=== PATIENT | female | born 1945 | race Caucasian/White ===

== ENCOUNTER → 2017-07-03 09:49 | Outpatient (CLI) | payer MEDICARE, SELFPAY ==
[2017-07-03 12:18] LABS: Absolute Lymphocyte Count 1.59 X10^3/ul (0.83-4.51); Absolute Neutrophil Count 4.8 X10^3/uL (2.0-7.7); Basophil# 0.02 X10^3/uL; Basophil% 0.3 % (0-1); Eosinophil# 0.13 X10^3/uL; Eosinophils% 1.8 % (0-5); Hematocrit 44.2 % (37-47); Hemoglobin 14.6 g/dl (12.0-15.0); Lymphocyte # 1.59 X10^3/ul (4.0); Lymphocyte % 22.2 % (19-41); Mean Corpuscular Hgb 29.3 pg (27.0-32.0); Mean Corpuscular Volume 88.8 fL (81-99); Mean Platelet Vol. 9.9 fl (6.2-12.0); Monocyte# 0.56 X10^3/uL; Monocyte% 7.8 % (0-10); Neutrophil # 4.82 X10^3/uL (2.7-7.7); Neutrophil % 67.5 % (47-70); Platelet Count 192 K/mm3 (150-450); RBC Distribution Width CV 13.3 % (11.6-14.6); RBC Distribution Width SD 42.9 fl (35.1-43.9); Red Blood Count 4.98 M/mm3 (4.2-5.4); White Blood Count 7.2 K/mm3 (4.4-11.0)
[2017-07-03 12:20] LABS: POSITIVE COUNT NO; POSITIVE DIFFERENTIAL NO; POSITIVE MORPHOLOGY NO
[2017-07-03 12:31] LABS: Hemoglobin A1c 6.3 % (4.2-6.3)
[2017-07-03 12:36] LABS: Anion Gap 5 (5-15); BUN 21 mg/dL (7-18); BUN/Creat Ratio 21.1 RATIO (10-20); Calcium,Total 9.6 mg/dL (8.5-10.1); Chloride 105 mmol/L (98-107); EST Glomerular Filtration Rate 59 mL/min (>60); Est Glom Filt Rate - Afr Amer 71 mL/min (>60); Glucose 127 mg/dL (74-106); Magnesium 2.5 mg/dL (1.6-2.6); Potassium 5.1 mmol/L (3.5-5.1); Sodium Level 138 mmol/L (136-145); T4 Free Direct 0.88 ng/dL (0.76-1.46); Thyroid Stim Hormone (TSH) 2.01 uIU/mL (0.358-3.74)
== END ==
PROVIDERS: Family Provider Family Medicine; PCP Family Medicine; Visit Provider Family Medicine
DX: I48.91 Unspecified atrial fibrillation (principal); R73.01 Impaired fasting glucose; R59.1 Generalized enlarged lymph nodes
CPT/HCPCS: 36415; 80048; 83036; 83735; 84439; 84443; 85025

== ENCOUNTER 2017-12-24 04:37 | Emergency (ER) | payer MEDICARE, SELFPAY ==
[2017-12-24] VITALS (11 sets, daily range): BP systolic 93–152; BP diastolic 57–92; PULSE 64–104; RESP 14–25; TEMP 36.6; O2SAT 94–98; BMI 37.8
--- NOTE | 2017-12-24 04:42 | RAD_ITS ---
STUDY: X-RAY CHEST REASON FOR EXAM: Female, 72 years old. Atrial fibrillation. TECHNIQUE: Single AP portable view of the chest. COMPARISON: 06/30/2014. FINDINGS: The lungs are clear and expanded. There is no demonstrated pleural abnormality. There is mild cardiac enlargement. Normal mediastinum and lucita. Normal visualized pulmonary arteries. There is atherosclerotic calcification of the aortic arch with tortuosity. There are diffuse degenerative changes of the visualized thoracic spine. Normal visualized ribs, clavicles, and shoulders. There is no demonstrated abnormality of the visualized soft tissue structures of the upper abdomen. RAD/Chest 1 View (Portable) IMPRESSION: Cardiomegaly. No evidence for acute cardiopulmonary pathology. Electronically Signed: Singh Lindsey MD at 5:27 EST , Service support ,
[2017-12-24] MEDS: Aspirin 81 MG TAB.CHEW 324 MG PO (04:51)
[2017-12-24] MEDS: dilTIAZem 25 MG/5 ML Vial 10 MG IV BOLUS (04:53)
[2017-12-24 05:02] LABS: Hematocrit 45.6 % (37-47); Hemoglobin 15.5 g/dl (12.0-15.0); Mean Corpuscular Hgb 30.2 pg (27.0-32.0); Mean Corpuscular Volume 88.9 fL (81-99); Red Blood Count 5.13 M/mm3 (4.2-5.4); White Blood Count 11.6 K/mm3 (4.4-11.0)
[2017-12-24 05:03] LABS: Absolute Neutrophil Count 7.7 X10^3/uL (2.0-7.7); Basophil# 0.02 X10^3/uL; Basophil% 0.2 % (0-1); Eosinophils% 0.9 % (0-5); Lymphocyte % 24.1 % (19-41); Mean Platelet Vol. 9.5 fl (6.2-12.0); Monocyte# 0.86 X10^3/uL; Monocyte% 7.4 % (0-10); Neutrophil # 7.72 X10^3/uL (2.7-7.7); Neutrophil % 66.5 % (47-70); POSITIVE COUNT NO; POSITIVE DIFFERENTIAL NO; POSITIVE MORPHOLOGY NO; Platelet Count 195 K/mm3 (150-450)
--- NOTE | 2017-12-24 05:15 | ED.DCSUM_ITS ---
- ER Visit Summary Date of Service: 12/24/17 Chief Complaint: Palpitations History of Present Illness: The patient is a 72 F presenting with palpitations and feeling that she is in A. fib. She has history of paroxysmal A. fib. She states she has not been in A. fib for the past couple of years. On Sunday she was intermittently going into A. fib. She states it has been constant since Sunday night. She denies chest pain or shortness of breath. Denies other complaints. Physical Examination: Vitals are stable. Patient is afebrile. Alert no acute distress. HEENT exam is unremarkable. Neck is supple. Lungs are clear and equal bilaterally. Heart is irregularly irregular Abdomen is soft nontender nondistended. Extremities are unremarkable. Skin is warm and dry. No focal neurologic deficit. Remainder of exam is unremarkable. Emergency Department Course and Treatment: Patient was given aspirin, Cardizem IV. Her heart rate went to the 80s and her blood pressure went to 100 systolic. She remains in A. fib. CBC, chemistries unremarkable other than white count 11.6, glucose 146, BUN 21, creatinine 1.16. Troponin is negative. Chest x-ray shows cardiomegaly, no acute process. Discussed with Dr. Thapa. Patient will be sedated and cardioverted. She will follow-up in the office. Patient was consented for procedural sedation. She was given propofol. Synchronized cardioversion with 200 J x2 was performed. She converted to sinus rhythm. Repeat EKG is sinus rhythm rate of 66. She was observed in the ED. She will follow-up with Dr. Thapa in his office. Advised to return to ED for worsening complaints. Disposition: Discharge home Impression: Paroxysmal atrial fibrillation, procedural sedation, synchronized cardioversion This note was generated with [employer] dictation software. It may contain incorrect words, spelling, and punctuation that were not noted in review of the chart prior to signing ED Disposition - Plan for ED Patient: Chief Complaint: Palpitations Instructions: ED Afib Referrals: Reynaldo Thapa MD [STAFF PHYSICIAN] - Rui Rea MD [Primary Care Provider] -
[2017-12-24 05:17] LABS: Anion Gap 8 (5-15); BUN 21 mg/dL (7-18); BUN/Creat Ratio 18.1 RATIO (10-20); Chloride 106 mmol/L (98-107); Creatinine, Serum 1.16 mg/dL (0.55-1.02); EST Glomerular Filtration Rate 49 mL/min (>60); Est Glom Filt Rate - Afr Amer 59 mL/min (>60); Estimated Creatinine Clearance 37.33 ml/min; Glucose 146 mg/dL (74-106); Potassium 4.3 mmol/L (3.5-5.1); Sodium Level 139 mmol/L (136-145)
--- NOTE | 2017-12-24 06:27 | ED.DEP ---
ED Disposition - Plan for ED Patient: Chief Complaint: Palpitations Instructions: ED Afib Referrals: Rui Rea MD [Primary Care Provider] - Reynaldo Thapa MD [STAFF PHYSICIAN] -
[2017-12-24] MEDS: Propofol 200 MG/20 ML Vial IV BOLUS (06:30)
== END 2017-12-24 07:53 | disposition home or self-care (01) ==
LOC: ED 04:53
PROVIDERS: Emergency Provider Emergency Medicine; Family Provider Family Medicine; PCP Family Medicine
DX: I48.0 Paroxysmal atrial fibrillation (principal); I10 Essential (primary) hypertension; F41.9 Anxiety disorder, unspecified; Z79.01 Long term (current) use of anticoagulants; Z79.899 Other long term (current) drug therapy
CPT/HCPCS: 71045; 80048; 84484; 85025; 92960; 93005; 96374; 99152; 99285; J7030; A4216

== ENCOUNTER 2018-01-15 11:14 | Day surgery (SDC) | payer MEDICARE, SELFPAY ==
--- NOTE | 2018-01-15 12:07 | OP.PCM_ITS ---
Operative Report Date of Procedure: 01/15/18 DC cardioversion. 72-year-old lady with a history of chronic persistent atrial fibrillation anticoagulated for at least 3 weeks. The patient was brought to the noninvasive lab in the postabsorptive state. Informed consent was obtained anterior- posterior pads were applied. The patient was seen by Dr. Vinson of the critical care division. She was administered 40 mg of intravenous propofol. 200 J of synchronized DC cardioversion energy were applied with prompt reversal to sinus rhythm. Patient tolerated the procedure well. Conclusion: Successful DC cardioversion from atrial fibrillation to sinus rhythm. Continue current medical therapy
--- NOTE | 2018-01-15 14:08 | OP.PCM_ITS ---
Problem List (1) Family history of cardiovascular disease Status: Chronic Comment: brother of an MS and mother at 69 YOA with CVD (2) Family history of diabetes mellitus Status: Chronic Comment: son hs DM (3) HLD (hyperlipidemia) Status: Chronic (4) HTN (hypertension) Status: Chronic Qualifiers: Hypertension type: essential hypertension Qualified Code(s): I10 - Essential (primary) hypertension (5) History of detached retina repair Status: Chronic (6) IRON (obstructive sleep apnea) Status: Chronic Comment: not compliant with CPAP. (7) Paroxysmal atrial fibrillation Status: Chronic Operative Report Date of Procedure: 01/15/18 - Conscious sedation CONSCIOUS SEDATION REPORT BRIEF HISTORY OF PRESENT ILLNESS: The patient is a 72-year-old female who presented to [facility] for an elective outpatient cardioversion due to underlying atrial fibrillation. The patient reports no PO intake since midnight. The patient does have a history of obstructive sleep apnea. The patient reports no history of smoking and COPD. The patient denies any recent constitutional symptoms such as fevers, chills, nausea or vomiting. The patient denies previous anesthetic complications. Patient's last known ejection fraction of 55% PHYSICAL EXAMINATION: VITAL SIGNS: Reviewed and were acceptable. GENERAL: The patient is a female, in no apparent distress, speaking in full sentences. HEENT: Normocephalic, atraumatic. Mucous membranes are moist and pink. Good mouth opening noted. Trachea is midline. Good neck mobility. MP III CHEST: S1, S2 irregularly irregular. No murmurs, rubs or gallops were noted. LUNGS: Clear to auscultation bilaterally without appreciable wheezes, rales or rhonchi. ABDOMEN: Soft, nontender, nondistended. Positive bowel sounds. EXTREMITIES: There is no clubbing, cyanosis or edema. ASA Class: II DESCRIPTION OF PROCEDURE: After confirmation of informed consent, the patient's anesthesia plan was reviewed in detail. Propofol was chosen. Risks and benefits were reviewed and the patient agreed to proceed. At 11:59 AM, the patient was given 40 mg of propofol. The patient achieved an appropriate level of sedation and received 1 attempt s synchronized cardioversion, at [address] Thapa at the bedside. This was successful in achieving normal sinus rhythm. The patient was monitored until 12:05 PM, at which time the patient reached their baseline mental status and function. The patient tolerated the procedure well. COMPLICATIONS: None ESTIMATED BLOOD LOSS: None RECOMMENDATIONS: Okay to recover in usual fashion. Code Visit 9xxxx: Other Procedure See Report - [id number]
--- OUTSIDE RECORDS SUMMARY | 2018-02-27 02:59 | XMS RPT_ITS ---
:1945 Author Organization OHIP Support Name Relationship Address Phone MONAE, OMARI Unavailable [address] + [place] [address] R Unavailable Unavailable Unavailable MONAE, OMARI Unavailable [address] + [place] [address] R Unavailable Unavailable Unavailable MONAE, OMARI Unavailable [address] + [place] [address] R Unavailable Unavailable Unavailable MONAE, OMARI Unavailable [address] + [place] [address] R Unavailable Unavailable Unavailable MONAE, OMARI Unavailable [address] + [place] [address] R Unavailable Unavailable Unavailable MONAE, OMARI Unavailable [address] + [place] [address] R Unavailable Unavailable Unavailable MONAE, OMARI Unavailable [address] + [place] [address] R Unavailable Unavailable Unavailable MONAE, OMARI Unavailable [address] + [place] [address] R Unavailable Unavailable Unavailable MONAE, OMARI Unavailable [address] + [place] [address] R Unavailable Unavailable Unavailable MONAE, OMARI Unavailable [address] + [place] [address] R Unavailable Unavailable Unavailable MONAE, OMARI Unavailable [address] + [place] [address] R Unavailable Unavailable Unavailable MONAE, OMARI Unavailable [address] + [place] [address] R Unavailable Unavailable Unavailable Care Team Providers Name Role Phone Rona, Rui Attending Unavailable Rona, Rui Primary Care Unavailable Isela Cabrera Attending Unavailable Elier, Fremont Attending Unavailable Rona, Rui Referring Unavailable Rona, Rui Primary Care Unavailable Rona, Rui Primary Care Unavailable Southern, Rose Attending Unavailable Elier, Reynaldo Attending Unavailable Rona, Rui Referring Unavailable Elier, Reynaldo Attending Unavailable Elier, Fremont Referring Unavailable Rona, Rui Primary Care Unavailable Elier, Reynaldo Attending Unavailable Elier, Reynaldo Referring Unavailable Rona, Rui Primary Care Unavailable Elier, Fremont Consulting Unavailable Rafael Vinson Attending Unavailable Elier, Reynaldo Referring Unavailable Rona, Rui Primary Care Unavailable Elier, Fremont Consulting Unavailable Elier, Reynaldo Attending Unavailable Southern, Rose Referring Unavailable Elier, Fremont Attending Unavailable Elier, Reynaldo Referring Unavailable Rona, Rui Primary Care Unavailable Nurse, Standard Attending Unavailable Rona, Rui Referring Unavailable Elier, Reynaldo Attending Unavailable Elier, Reynaldo Referring Unavailable Rona, Rui Primary Care Unavailable Elier, Reynaldo Consulting Unavailable PROBLEMS PROBLEMS DATE TYPE CONDITION / CODE ATTENDING STATUS SOURCE 01/23/2018 Unknown I48.0 - Paroxysmal Elier, Fremont Active [facility] atrial fibrillation / Community I48.0(ICD-10) Hospital Repository 01/16/2018 Unknown I10 - Essential Elier, Reynaldo Active [facility] (primary) hypertension Community / I10(ICD-10) Hospital Repository 01/16/2018 Unknown R94.31 - Abnormal Elier, Fremont Active [facility] electrocardiogram Community [ECG] [EKG] / Hospital R94.31(ICD-10) Repository 07/10/2017 Unknown E78.5 - Elier, Reynaldo Active [facility] Hyperlipidemia, Community unspecified / Hospital E78.5(ICD-10) Repository 07/03/2017 Unknown I48.91 - Unspecified Rona, Rui Active [facility] atrial fibrillation / Community I48.91(ICD-10) Hospital Repository 07/03/2017 Unknown R73.01 - Impaired Rona, Rui Active [facility] fasting glucose / Community R73.01(ICD-10) Hospital Repository 07/03/2017 Unknown R59.1 - Generalized Rona, Rui Active [facility] enlarged lymph nodes / Community R59.1(ICD-10) Hospital Repository PROCEDURES PROCEDURES No Procedure Records FoundRESULTS RESULTS ECHOCARDIOGRAM COMPLETE Observed: 01/23/2018 Status: F Source: PENDER 5:23 PM [facility] REPOSITORY [facility] Services [address] [place] [address] Echo Complete 01/23/18 1043 MR#: [id number] Acct: [id number] Name: SHIRLEY SHULTZ Rep #: [id number] : 1945 72 From: Reynaldo Thapa MD Attending Dr: Reynaldo Thapa MD Status: REG CLI Ordering Dr: Reynaldo Thapa MD Date: 01/23/18 Location: [facility] Sex: F C Admitted: Reason For Study: AFIB/FLUTTER Procedure This was a 2D Doppler, Color Flow transthoracic echocardiogram. Exam performed in department. Left Ventricle Normal LV size. Left ventricular systolic function is normal. The estimated ejection fraction is 60 %. No evidence for diastolic dysfunction. No regional wall motion abnormalities noted. Right Ventricle Normal RV size. Normal systolic function. Atria Normal left atrium. Normal right atrium. Mitral Valve Normal mitral valve. Mild (1+) eccentric mitral valve insufficiency. Tricuspid Valve Normal tricuspid valve. Mild (1+) tricuspid valve insufficiency. Pulmonary artery systolic pressure is 27 mmHg. Aortic Valve Normal aortic valve. Trisinus/trileaflet aortic valve. Pulmonic Valve Normal pulmonic valve. Great Vessels Normal aortic root. The pulmonary artery is normal size. Normal inferior vena cava. Pericardium/Pleural No pericardial effusion. MMode/2D Measurements AND Calculations LVIDd: 5.1 cm IVSd: 0.92 cm Ao root diam: 2.8 cm LVIDs: 3.4 cm LVPWd: 0.94 cm RVDd: 3.1 cm FS: 34.0 % LAV(MOD-bp): 60.9 ml LA A4 area: 19.6 cm2 LA dimension(2D): 4.0 cm LAV(MOD-bp) Indexed: 30.7 ml/m2 LAV(MOD-sp2): 68.5 ml LAV(MOD-sp4): 52.8 ml RA A4 area: 20.7 cm2 Time Measurements MV dec time: 0.17 sec Doppler Measurements AND Calculations MV E max octaviano: 124.6 cm/sec Lat Peak E' Octaviano: 7.8 cm/sec Med Peak E' Octaviano: 9.7 cm/sec MV A max octaviano: 69.3 cm/sec E/E' lat: 15.9 E/E' med: 12.8 MV E/A: 1.8 Ao V2 max: 152.4 cm/sec LV V1 max: 124.6 cm/sec PA V2 max: 90.1 cm/sec Ao max P.3 mmHg LV V1 max P.2 mmHg TR max octaviano: 237.0 cm/sec TR max P.5 mmHg Interpretation Summary Normal LV size. Left ventricular systolic function is normal. The estimated ejection fraction is 60 %. No evidence for diastolic dysfunction. Mild (1+) eccentric mitral valve insufficiency. Pulmonary artery systolic pressure is 27 mmHg. Ordering Physician: Reynaldo Thapa Referring Physician: Rui Rea Performed By: Alesia Carmichael, FIDEL, RVT 01/23/18 1722 Date Reynaldo Thapa MD CC: Reynaldo Thapa MD; Rui Rea MD Date Dictated: 01/23/18 1043 Date Transcribed: 01/23/181721 Team Coordinator: Signed 12 LEAD EKG PERFORMED Observed: 01/23/2018 Status: F Source: PENDER BY [facility] 11:41 AM [facility] REPOSITORY [facility] [address] [place] [address] 12 Lead EKG performed by [facility] 01/23/18 1140 MR#: [id number] Acct: [id number] Name: SHIRLEY SHULTZ Rep #: [id number] : 1945 72 From: Reynaldo Thapa MD Attending Dr: Kapil Dumont RN Status: DEP AMB Ordering Dr: Reynaldo Thapa MD Date: 01/23/18 Location: [facility] Sex: F C Admitted: [facility]/12 Lead EKG performed by [facility] ECG Report Interpretation Sinus Bradycardia -First degree A-V block Mima = 254-Left axis -anterior fascicular block. -Poor R-wave progression -may be secondary to pulmonary disease consider old anterior infarct. - Negative precordial T-waves. Low voltage with rightward P-axis and rotation -possible pulmonary disease. ABNORMAL Electronically signed on 01/23/2018 at 16:37 by Reynaldo Thapa [employer] Version 8610 01/23/18 1641 Date Reynaldo Thapa MD CC: Rui Rea MD Date Dictated: 01/23/18 1140 Date Transcribed: 01/23/18 1140 Team Coordinator: CO Signed OPERATIVE REPORT Observed: 01/16/2018 Status: F Source: PENDER 5:47 AM [facility] REPOSITORY [facility] Medical Records Department [address] [place] [address] Operative Report 01/15/18 1406 MR#: [id number] Acct: [id number] Name: SHIRLEY SHULTZ Rep #: [id number] : 1945 72 From: Rafael Vinson MD PCP: Rui Rea MD Status: [facility] Location: [facility] Problem List (1) Family history of cardiovascular disease Status: Chronic Comment: brother of an RI and mother at 69 YOA with CVD (2) Family history of diabetes mellitus Status: Chronic Comment: son hs DM (3) HLD (hyperlipidemia) Status: Chronic (4) HTN (hypertension) Status: Chronic Qualifiers: Hypertension type: essential hypertension Qualified Code(s): I10 - Essential (primary) hypertension (5) History of detached retina repair Status: Chronic (6) IRON (obstructive sleep apnea) Status: Chronic Comment: not compliant with CPAP. (7) Paroxysmal atrial fibrillation Status: Chronic Operative Report Date of Procedure: 01/15/18 - Conscious sedation CONSCIOUS SEDATION REPORT BRIEF HISTORY OF PRESENT ILLNESS: The patient is a 72-year-old female who presented to [facility] for an elective outpatient cardioversion due to underlying atrial fibrillation. The patient reports no PO intake since midnight. The patient does have a history of obstructive sleep apnea. The patient reports no history of smoking and COPD. The patient denies any recent constitutional symptoms such as fevers, chills, nausea or vomiting. The patient denies previous anesthetic complications. Patient's last known ejection fraction of 55% PHYSICAL EXAMINATION: VITAL SIGNS: Reviewed and were acceptable. GENERAL: The patient is a female, in no apparent distress, speaking in full sentences. HEENT: Normocephalic, atraumatic. Mucous membranes are moist and pink. Good mouth opening noted. Trachea is midline. Good neck mobility. MP III CHEST: S1, S2 irregularly irregular. No murmurs, rubs or gallops were noted. LUNGS: Clear to auscultation bilaterally without appreciable wheezes, rales or rhonchi. ABDOMEN: Soft, nontender, nondistended. Positive bowel sounds. EXTREMITIES: There is no clubbing, cyanosis or edema. ASA Class: II DESCRIPTION OF PROCEDURE: After confirmation of informed consent, the patient's anesthesia plan was reviewed in detail. Propofol was chosen. Risks and benefits were reviewed and the patient agreed to proceed. At 11:59 AM, the patient was given 40 mg of propofol. The patient achieved an appropriate level of sedation and received 1 attempt s synchronized cardioversion, at [address] Thapa at the bedside. This was successful in achieving normal sinus rhythm. The patient was monitored until 12:05 PM, at which time the patient reached their baseline mental status and function. The patient tolerated the procedure well. COMPLICATIONS: None ESTIMATED BLOOD LOSS: None RECOMMENDATIONS: Okay to recover in usual fashion. Code Visit 9xxxx: Other Procedure See Report - [id number] 01/16/18 0547 <Electronically signed by Rafael Vinson MD> Date Rafael Vinson MD CC: Rafael Vinson MD; Reynaldo Thapa MD; Rui Rea MD Signed OPERATIVE REPORT Observed: 01/15/2018 Status: F Source: PENDER 12:07 PM [facility] REPOSITORY [facility] Medical Records Department [address] [place] [address] Operative Report 01/15/18 1206 MR#: [id number] Acct: [id number] Name: SHIRLYE SHULTZ Rep #: [id number] : 1945 72 From: Reynaldo Thapa MD PCP: Rui Rea MD Status: REG [facility] Location: [facility] Operative Report Date of Procedure: 01/15/18 DC cardioversion. 72-year-old lady with a history of chronic persistent atrial fibrillation anticoagulated for at least 3 weeks. The patient was brought to the noninvasive lab in the postabsorptive state. Informed consent was obtained anterior-posterior pads were applied. The patient was seen by Dr. Vinson of the critical care division. She was administered 40 mg of intravenous propofol. 200 J of synchronized DC cardioversion energy were applied with prompt reversal to sinus rhythm. Patient tolerated the procedure well. Conclusion: Successful DC cardioversion from atrial fibrillation to sinus rhythm. Continue current medical therapy 01/15/18 1207 <Electronically signed by Reynaldo Thapa MD> Date Reynaldo Thapa MD CC: Reynaldo Thapa MD; Rui Rea MD Signed CARDIOLOGY VISIT Observed: 01/08/2018 Status: F Source: PENDER REPORT 11:29 AM [facility] Heart [address] [place] [address] OFFICE VISIT Date of Service: 01/08/18 MR#: [id number] Acct: [id number] Name: SHIRLEY SHULTZ Rep #: [id number] : 1945 Provider: Reynaldo Thapa MD Age/Sex: 72/F Location: [facility] Status: Signed [facility] Chief Complaint: Follow-up visit. Details: SHIRLEY SHULTZ, is a 72 F who presents to the office today for a follow-up visit. She is a lady with a history of hypertension, hyperlipidemia, paroxysmal atrial fibrillation. She has been compliant with her medications. She however says that she started feeling fatigued and felt clammy. She had presented to the emergency room on 12/24/2017 with palpitations she was noted to be in atrial fibrillation and underwent DC cardioversion. She presents to the office today still feeling rather fatigued and her EKG demonstrates that she is in atrial fibrillation with a rate of 102 bpm. She says that she does not know any precipitating factors to the above. She had previously been on 50 mg twice a day of the flecainide. Her physical exam today demonstrates clear lung short irregular regular heart rate normal blood pressure and no pedal edema. Intake Vital Signs01/08/18 Weight: 213 lb 01/08/18 Blood Pressure 112/64 01/08/18 Blood Pressure Location Rt brachial Intake Visit Reasons: ER 11-5 Regional Business Development Manager Required: No Accompanied by: none Is patient in pain?: No Allergies codeine Allergy (Verified 01/08/18 11:01) Other loratadine Allergy (Verified 01/08/18 11:01) Other meloxicam Allergy (Verified 01/08/18 11:01) Other methylprednisolone Allergy (Verified 01/08/18 11:01) Other dronedarone [From Multaq] Adverse Reaction (Verified 01/08/18 11:01) GI upset Penicillins Adverse Reaction (Verified 01/08/18 11:01) nausea and vomiting sulfamethoxazole [From Bactrim] Adverse Reaction (Verified 01/08/18 11:01) Nausea/Vom/Diarrhea trimethoprim [From Bactrim] Adverse Reaction (Verified 01/08/18 11:01) Nausea/Vom/Diarrhea Medications Citalopram [Celexa] 20 mg PO DAILY 05/19/14 [History Confirmed 01/08/18] cholecalciferol (vitamin D3) 1,000 unit tablet 1,000 unit PO QDAY 07/06/17 [History Confirmed 01/08/18] nebivolol 5 mg tablet 5 mg PO DAILY #90 tab 12/06/17 [Rx Confirmed 01/08/18] rivaroxaban 20 mg tablet 20 mg PO DAILY #90 tab 12/06/17 [Rx Confirmed 01/08/18] flecainide 100 mg tablet 100 mg PO BID #60 tab 12/27/17 [Rx Confirmed 01/08/18] [facility] Medical History HTN (hypertension) (Chronic) HLD (hyperlipidemia) (Chronic) Paroxysmal atrial fibrillation (Chronic) IRON (obstructive sleep apnea) (Chronic) Anxiety (Chronic) Back problem (Chronic) Depression (Chronic) Dysphagia (Chronic) GERD (gastroesophageal reflux disease) (Chronic) Hypokalemia (Chronic) Surgical History History of left heart catheterization (Acute 07/29/08) History of cholecystectomy (Chronic 1977) History of tubal ligation (Chronic 1981) Family History Father Cancer Prostate cancer Mother Myocardial infarction Arthritis Sister Breast cancer Brother Diabetes CHF (congestive heart failure) Myocardial infarction Son Diabetes Social History Smoking Status: Never smoker alcohol intake: never substance use type: does not use ROS Const Const: Positive for fatigue and weakness; negative for night sweats, excessive sweating, frequent falls, headache(s) or daytime sleepiness Eyes Eyes: Negative for loss of peripheral vision, transient loss of vision, blind spots, double vision or blurry vision ENT ENT: Positive for dizziness; negative for headache(s), balance problems, Nosebleed/epistaxis, tongue swelling or lip swelling Cardio Chest Pain: No Palpitations: Yes Edema: None Muscle aches with walking: None Resp Respiratory: Negative for SOB at rest, SOB orthopnea\SOB lying down, Cough, paroxysmal nocturnal dyspnea or SOB with activity GI GI: Negative nausea, vomiting, heartburn, black,tarry stools or bright, red blood in stools : Negative for hematuria Musc Musc: Negative for balance problems, muscle aches/ myalgia, muscle weakness or joint pain Skin Skin: Negative non-healing lesions, unusual bruising or rash Neuro Neuro: Positive for weakness, dizziness and lightheadedness; negative for frequent falls, headache(s), double vision, orthostatic symptoms, blurry vision or lack of coordination Eric Hematologic/Lymphatic: Negative for easy bruising or easy bleeding Endo Endo: Positive for fatigue; negative for excessive sweating, cold intolerance, heat intolerance, increased thirst/drinking or hair loss Psych Psych: Negative for anxiety or depression Allergy Allergy/Immunology: Negative for throat swelling, Negative for tongue swelling, Negative for hives, Negative for rash, Negative for lip swelling Cardiology Exam Const Appearance: cooperative, healthy appearing, well developed, well groomed and no acute distress Nutritional Appearance: well nourished and average body habitus Orientation: alert, awake and oriented x3 Head Head: normal to inspection, normocephalic and atraumatic Ears: hearing grossly normal bilaterally and external ears normal Nose: external nose normal, nasal mucous membranes and turbinates normal, nares normal, septum normal, no nasal discharge Face and Sinus: face symmetric Mouth: oral mucosae normal, tongue normal, oropharynx normal and moist mucous membranes Teeth and gingiva: dentition normal Throat: posterior oropharynx normal, tonsils normal and uvula midline Eyes General: appearance normal, both eyes and all related structures Eyelids: eyelids normal Conjunctivae: conjunctivae normal Pupils: PERRL, normal by confrontation and accommodation normal EOM: EOM intact bilaterally Neck Neck: normal visual inspection, trachea midline and no JVD JVD: +5 Carotids: normal carotid upstroke and bounding pulses Chest Chest inspection: normal inspection of the chest, symmetric chest movement and normal respiratory effort Auscultation: Bilateral: Clear to Auscultation Cardio Palpation: normal PMI Rhythm: irregular rhythm Heart sounds: S1 normal and S2 normal GI GI: normal to inspection, soft, no hepatosplenomegaly and bowel sounds present Neuro General: alert, awake, oriented x3, no focal sensory deficit, gait normal and moves all extremities Skin Skin: no rashes or lesions noted Extremities Pulses: Normal: Right Femoral Pulse, Left Femoral Pulse, Right Dorsalis Pedis Pulse, Left Dorsalis Pedis Pulse, Right Posterior Tibial Pulse, Left Posterior Tibial Pulse, Right Radial Pulse, Left Radial Pulse Lower Extremity Edema: None: Bilateral Musculoskel Musculoskeletal: No joint tenderness Psych Psychological: normal affect Assessment AND Plan 1. Paroxysmal atrial fibrillation I48.0 Plan She appears to be having more recurrences of atrial fibrillation. The etiology is unclear I will suggest that we get an echocardiogram to assess her left ventricular function. She will remain on the same dose of the Bystolic. In addition she would continue with her rivaroxaban. I would arrange for her to have an outpatient cardioversion. Orders Orders: 2. Essential hypertension I10 Plan Her blood pressure appears to be under good control on the current medical therapy with the beta-donte and this will be continued without as making any changes. Plan Detail Follow Up 4 Months (mmm) Coding Level of Care Code Off vis,est,level 4 Diagnoses Paroxysmal atrial fibrillation I48.0 Essential hypertension I10 Hypertension type: essential hypertension Coding Level of Care Code Off vis,est,level 4 Diagnoses Paroxysmal atrial fibrillation I48.0 Essential hypertension I10 Hypertension type: essential hypertension 01/08/18 1129 <Electronically signed by Reynaldo Thapa MD> Date Reynaldo Thapa MD Cosigner Signature: Date (if applicable) CC: Rui Rea MD EMERGENCY DEPARTMENT Observed: 12/24/2017 Status: F Source: PENDER SUMMARY 7:32 AM [facility] REPOSITORY [facility] Medical Records Department [address] [place] [address] Emergency Department Summary 12/24/17 0514 MR#: [id number] Acct: [id number] Name: SHIRLEY SHULTZ Rep #: [id number] : 1945 72 From: Rose Damico MD PCP: Rui Rea MD Status: REG ER - ER Visit Summary Date of Service: 12/24/17 Chief Complaint: Palpitations History of Present Illness: The patient is a 72 F presenting with palpitations and feeling that she is in A. fib. She has history of paroxysmal A. fib. She states she has not been in A. fib for the past couple of years. On Sunday she was intermittently going into A. fib. She states it has been constant since Sunday night. She denies chest pain or shortness of breath. Denies other complaints. Physical Examination: Vitals are stable. Patient is afebrile. Alert no acute distress. HEENT exam is unremarkable. Neck is supple. Lungs are clear and equal bilaterally. Heart is irregularly irregular Abdomen is soft nontender nondistended. Extremities are unremarkable. Skin is warm and dry. No focal neurologic deficit. Remainder of exam is unremarkable. Emergency Department Course and Treatment: Patient was given aspirin, Cardizem IV. Her heart rate went to the 80s and her blood pressure went to 100 systolic. She remains in A. fib. CBC, chemistries unremarkable other than white count 11.6, glucose 146, BUN 21, creatinine 1.16. Troponin is negative. Chest x-ray shows cardiomegaly, no acute process. Discussed with Dr. Thapa. Patient will be sedated and cardioverted. She will follow-up in the office. Patient was consented for procedural sedation. She was given propofol. Synchronized cardioversion with 200 J x2 was performed. She converted to sinus rhythm. Repeat EKG is sinus rhythm rate of 66. She was observed in the ED. She will follow-up with Dr. Thapa in his office. Advised to return to ED for worsening complaints. Disposition: Discharge home Impression: Paroxysmal atrial fibrillation, procedural sedation, synchronized cardioversion This note was generated with [employer] dictation software. It may contain incorrect words, spelling, and punctuation that were not noted in review of the chart prior to signing ED Disposition - Plan for ED Patient: Chief Complaint: Palpitations Instructions: ED Afib Referrals: Reynaldo Thapa MD [STAFF PHYSICIAN] - Rui Rea MD [Primary Care Provider] - What to do if you have Problems For any increased pain, shortness of breath, bleeding, nausea or vomiting, chest pain, or any unexpected problems, contact your Primary Care Provider. Call [facility] ([phone]) or report to the closest Emergency Room. Call 911 if necessary. 12/24/17 0732 <Electronically signed by Rose Damico MD> Date Rose Damico MD Cosigner Signature (If Indicated): Date CC: Rui Rea MD DISCHARGE INSTRUCTION Observed: 12/24/2017 Status: F Source: PENDER 6:27 AM [facility] REPOSITORY [facility] Medical Records Department [address] [place] [address] Discharge Instruction 12/24/17 0627 MR#: [id number] Acct: [id number] Name: SHIRLEY SHULTZ Rep #: [id number] : 1945 72 From: Rose Damico MD PCP: Rui Rea MD Status: REG ER ED Disposition - Plan for ED Patient: Chief Complaint: Palpitations Instructions: ED Afib Referrals: Rui Rea MD [Primary Care Provider] - Reynaldo Thapa MD [STAFF PHYSICIAN] - What to do if you have Problems For any increased pain, shortness of breath, bleeding, nausea or vomiting, chest pain, or any unexpected problems, contact your Primary Care Provider. Call [facility] ([phone]) or report to the closest Emergency Room. Call 911 if necessary. 12/24/17 0627 <Electronically signed by Rose Damico MD> Date Rose Damico MD Cosigner Signature (If Indicated): Date CC: Rui Rea MD CBC W/DIFF, AUTOMATED Collected: 12/24/2017 Status: F Source: PENDER 4:46 AM [facility] REPOSITORY TYPE CODE TESTS RESULT OUT OF RANGE REFERENCE UNITS LAB L100.1000 4.4-11.0 K/mm3 High WBC 11.6 LAB L100.1200 4.2-5.4 M/mm3 Normal RBC 5.13 LAB L100.1300 12.0-15.0 g/dl High HGB 15.5 LAB L100.1400 37-47 % Normal HCT 45.6 LAB L100.1500 81-99 fL Normal MCV 88.9 LAB L100.1600 27.0-32.0 pg Normal MCH 30.2 LAB L100.1700 32-36 g/gl Normal MCHC 34.0 LAB L100.1810 11.6-14.6 % Normal RDW CV 14.0 LAB L100.1820 35.1-43.9 fl High RDW SD 45.0 LAB L100.1900 150-450 K/mm3 Normal PLT 195 LAB L100.2000 6.2-12.0 fl Normal MPV 9.5 LAB L100.2100 47-70 % Normal NEUT% 66.5 LAB L100.2200 19-41 % Normal LY% 24.1 LAB L100.2300 0-10 % Normal MONO% 7.4 LAB L100.2400 0-5 % Normal EO% 0.9 LAB L100.2500 0-1 % Normal BASO% 0.2 LAB L100.2550 0.0-0.9 % Normal IM GRAN % 0.900 Result Comment: IG% - Immature Granulocytes (promyelocytes, myelocytes and metamyelocytes) > 1% indicates that a LEFT SHIFT is Present. LAB L100.2620 2.0-7.7 X10 3/uL Normal Absolute Neut 7.7 LAB L100.2720 0.83-4.51 X10 3/ul Normal Absolute Lymph 2.80 Performed By: #### L100.0100 #### [facility] [address], [address] BASIC METABOLIC Collected: 12/24/2017 Status: F Source: PENDER PROFILE (BMP) 4:46 AM [facility] REPOSITORY TYPE CODE TESTS RESULT OUT OF RANGE REFERENCE UNITS LAB L501.0100 74-106 mg/dL High GLU 146 Result Comment: Fasting Glucose result greater than or equal to 126 mg/dL suggests DIABETES MELLITUS per A.D.A. criteria. Please note revised GLUCOSE reference range effective 2017. LAB L501.1000 7-18 mg/dL High BUN 21 LAB L501.1100 0.55-1.02 mg/dL High CREAT,SERUM 1.16 Result Comment: The validity of the calculated GFR AND GFRAA in patients over 70 years has not been determined. Clinical correlation is essential. LAB L501.1110 >60 mL/min Low EST GFR 49 Result Comment: Non- GFR Calc LAB L501.1115 >60 mL/min Low EST GFR - AA 59 Result Comment: GFR Calc LAB L501.1255 ml/min Normal Estimated CRCL 37.33 LAB L501.1300 10-20 RATIO Normal BUN/CRE 18.1 LAB L501.2200 8.5-10 mg/dL Normal .1 CA 9.0 LAB L501.5300 136-14 mmol/L Normal 5 NA 139 LAB L501.5600 3.5-5. mmol/L Normal 1 K 4.3 LAB L501.5900 98-107 mmol/L Normal CL 106 LAB L501.6100 21.0-3 mmol/L Normal 2.0 CO2 25.0 LAB L501.6200 5-15 Normal GAP 8 Performed By: #### L500.2500, L501.4010 #### [facility] [address] [place], [address] TROPONIN-I Collected: 12/24/2017 Status: F Source: PENDER 4:46 AM [facility] REPOSITORY TYPE CODE TESTS RESULT OUT OF RANGE REFERENCE UNITS LAB L501.4010 <0.045 ng/mL Normal < 0.015 TROPONIN-I Result Comment: TROPONIN-I EXPECTED VALUES <0.045 Negative 0.045 - 0.590 Consistent with Cardiac Damage > OR = 0.600 Critical Value Not every elevated troponin is indicative of RI. These values should be used with clinical judgement in examining the patient's clinical picture for diagnosis. To establish a diagnosis of RI versus myocardial injury, there must be a demonstrated rise and/or fall in the troponin values, in addition to ischemic symptoms, EKG changes, new regional wall motion abnormality, and/or angiographical evidence. PLEASE NOTE: REFERENCE RANGES EDITED 17 Performed By: #### L500.2500, L501.4010 #### [facility] [address] [facility] [place], [address] CHEST 1 VIEW Observed: 12/24/2017 Status: F Source: PENDER (PORTABLE) 4:43 AM [facility] REPOSITORY [facility] [address] [place] [address] Chest 1 View (Portable) MR#: [id number] Acct: [id number] Name: SHIRLEY SHULTZ Rep #: [id number] : 1945 F 72 From: Singh Lindsey MD PCP: Rui Rea MD Status: REG ER Study: Chest 1 View (Portable) Date of Exam: 12/24/17 Exam# [id number] Ordering Dr: Rose Damico MD STUDY: X-RAY CHEST REASON FOR EXAM: Female, 72 years old. Atrial fibrillation. TECHNIQUE: Single AP portable view of the chest. COMPARISON: 06/30/2014. FINDINGS: The lungs are clear and expanded. There is no demonstrated pleural abnormality. There is mild cardiac enlargement. Normal mediastinum and lucita. Normal visualized pulmonary arteries. There is atherosclerotic calcification of the aortic arch with tortuosity. There are diffuse degenerative changes of the visualized thoracic spine. Normal visualized ribs, clavicles, and shoulders. There is no demonstrated abnormality of the visualized soft tissue structures of the upper abdomen. RAD/Chest 1 View (Portable) IMPRESSION: Cardiomegaly. No evidence for acute cardiopulmonary pathology. Electronically Signed: Singh Lindsey MD at 5:27 EST , Service support , CC: Rose Damico MD; Rui Rea MD Team Coordinator: Signed CARDIOLOGY VISIT Observed: 07/10/2017 Status: F Source: PENDER REPORT 10:28 AM [facility] REPOSITORY [facility] [address] [place] [address]. [address] [place] [address] OFFICE VISIT Date of Service: 07/10/17 MR#: [id number] Acct: [id number] Name: SHIRLEY SHULTZ Rep #: [id number] : 1945 Provider: Reynaldo Thapa MD Age/Sex: 72/F [place] [facility] [place] Status: Signed HPI HPI Chief Complaint: Follow-up visit. Details: SHIRLEY SHULTZ, is a 72 F who presents to the office today for a follow-up visit. She is a lady with a history of hypertension hyperlipidemia and paroxysmal atrial fibrillation she continues on the Bystolic as well as the Xarelto and has been doing quite well she denies any chest pain or shortness breath or paroxysmal nocturnal dyspnea pedal edema she has not had any neck, jaw discomfort suggest angina. She has been compliant with all her medications. Her electric cardiogram today demonstrated sinus bradycardia with a rate of 58 bpm and her physical exam demonstrated clear lung short regular rate and rhythm and no pedal edema. Intake Vital Signs07/10/17 Height 5 ft 4.5 in 07/10/17 Weight: 205 lb 07/10/17 Body Mass Index (BMI) 34.6 07/10/17 Blood Pressure 114/62 07/10/17 Pulse Rate 66 Intake Visit Reasons: 6 M FU Allergies codeine Allergy (Verified 07/10/17 09:51) Other loratadine Allergy (Verified 07/10/17 09:51) Other meloxicam Allergy (Verified 07/10/17 09:51) Other methylprednisolone Allergy (Verified 07/10/17 09:51) Other dronedarone [From Multaq] Adverse Reaction (Verified 07/10/17 09:51) GI upset Penicillins Adverse Reaction (Verified 07/10/17 09:51) nausea and vomiting sulfamethoxazole [From Bactrim] Adverse Reaction (Verified 07/10/17 09:51) Nausea/Vom/Diarrhea trimethoprim [From Bactrim] Adverse Reaction (Verified 07/10/17 09:51) Nausea/Vom/Diarrhea Medications Citalopram [Celexa] 20 mg PO DAILY 05/19/14 [History Confirmed 07/10/17] Nebivolol HCl [Bystolic (Beta Donte)] 5 mg PO DAILY 05/19/14 [History Confirmed 07/10/17] Rivaroxaban [Xarelto] 20 mg PO DAILY #30 tab 07/01/14 [Rx Confirmed 07/10/17] Flecainide [Tambocor] 50 mg PO BID 09/30/15 [History Confirmed 07/10/17] cholecalciferol (vitamin D3) 1,000 unit tablet 1,000 unit PO QDAY 07/06/17 [History Confirmed 07/10/17] [facility] Medical History HTN (hypertension) (Chronic) HLD (hyperlipidemia) (Chronic) Paroxysmal atrial fibrillation (Chronic) IRON (obstructive sleep apnea) (Chronic) Anxiety (Chronic) Back problem (Chronic) Depression (Chronic) Dysphagia (Chronic) GERD (gastroesophageal reflux disease) (Chronic) Hypokalemia (Chronic) Surgical History History of left heart catheterization (Acute 07/29/08) History of cholecystectomy (Chronic 1977) History of tubal ligation (Chronic 1981) Family History Father Cancer Prostate cancer Mother Myocardial infarction Arthritis Sister Breast cancer Brother Diabetes CHF (congestive heart failure) Myocardial infarction Son Diabetes Social History Smoking Status: Never smoker alcohol intake: never substance use type: does not use ROS Const Const: Negative for fatigue, weakness, difficulty sleeping, frequent falls, headache(s) or excessive sweating Eyes Eyes: Negative for loss of peripheral vision, transient loss of vision, blurry vision or double vision ENT ENT: Negative for headache(s), dizziness, Nosebleed/epistaxis or balance problems Cardio Chest Pain: No Edema: None Muscle aches with walking: None Resp Respiratory: Negative for SOB with activity, SOB at rest, SOB orthopnea\SOB lying down or paroxysmal nocturnal dyspnea GI GI: Negative nausea or heartburn : Negative for hematuria Musc Musc: Negative for muscle aches/ myalgia, muscle weakness, joint pain or balance problems Skin Skin: Negative non-healing lesions, unusual bruising or rash Neuro Neuro: Negative for weakness, frequent falls, blurry vision, headache(s), dizziness, lightheadedness, orthostatic symptoms or double vision Eric Hematologic/Lymphatic: Negative for easy bruising Endo Endo: Negative for fatigue, excessive sweating or increased thirst/drinking Psych Psych: Negative for anxiety or depression Allergy Allergy/Immunology: Negative for hives, Negative for rash Cardiology Exam Const Appearance: cooperative, healthy appearing, well developed, well groomed and no acute distress Nutritional Appearance: well nourished and average body habitus Orientation: alert, awake and oriented x3 Head Head: normal to inspection, normocephalic and atraumatic Ears: hearing grossly normal bilaterally and external ears normal Nose: external nose normal, nasal mucous membranes and turbinates normal, nares normal, septum normal, no nasal discharge Face and Sinus: face symmetric Mouth: oral mucosae normal, tongue normal, oropharynx normal and moist mucous membranes Teeth and gingiva: dentition normal Throat: posterior oropharynx normal, tonsils normal and uvula midline Eyes General: appearance normal, both eyes and all related structures Eyelids: eyelids normal Conjunctivae: conjunctivae normal Pupils: PERRL, normal by confrontation and accommodation normal EOM: EOM intact bilaterally Neck Neck: normal visual inspection, trachea midline and no JVD JVD: +5 Carotids: normal carotid upstroke and bounding pulses Chest Chest inspection: normal inspection of the chest, symmetric chest movement and normal respiratory effort Auscultation: Bilateral: Clear to Auscultation Cardio Palpation: normal PMI Rate: regular rate Rhythm: regular rhythm Heart sounds: S1 normal, S2 normal and normal, physiologic split S2; negative rub, gallop or murmur GI GI: normal to inspection, soft, no hepatosplenomegaly and bowel sounds present Neuro General: alert, awake, oriented x3, no focal sensory deficit, gait normal and moves all extremities Skin Skin: no rashes or lesions noted Extremities Pulses: Normal: Right Femoral Pulse, Left Femoral Pulse, Right Dorsalis Pedis Pulse, Left Dorsalis Pedis Pulse, Right Posterior Tibial Pulse, Left Posterior Tibial Pulse, Right Radial Pulse, Left Radial Pulse Lower Extremity Edema: None: Bilateral Musculoskel Musculoskeletal: No joint tenderness Psych Psychological: normal affect Assessment AND Plan 1. Paroxysmal atrial fibrillation I48.0 Plan She does have a history of paroxysmal atrial fibrillation but she appears to be maintaining sinus rhythm on the current rate limiting medications and anticoagulation I would not suggest that we make any change at this time her electrocardiogram is reassuring today. Orders Orders: 2. Essential hypertension I10 Plan Her blood pressure appears to be under excellent control on the current medical therapy no changes will be made. Thank you for allowing me to participate in the care of your patient. 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) Coding Level of Care Code Off vis,est,level 3 Diagnoses Paroxysmal atrial fibrillation I48.0 Essential hypertension I10 Hypertension type: essential hypertension Coding Level of Care Code Off vis,est,level 3 Diagnoses Paroxysmal atrial fibrillation I48.0 Essential hypertension I10 Hypertension type: essential hypertension 07/10/17 1028 <Electronically signed by Reynaldo Thapa MD> Date Reynaldo Thapa MD Cosigner Signature: Date (if applicable) CC: Rui Rea 12 LEAD EKG PERFORMED Observed: 07/10/2017 Status: F Source: [place] [facility] 9:51 AM [facility] REPOSITORY [facility] [address] [place] [address] 12 Lead EKG performed by [facility] 07/10/1751 MR#: [id number] Acct: [id number] Name: SHIRLEY SHULTZ Rep #: [id number] : 1945 72 From: Reynaldo Thapa MD Attending Dr: Reynaldo Thapa MD Status: DEP AMB Ordering Dr: Reynaldo Thapa MD Date: 07/10/17 [place] [facility] [place] Sex: F C Admitted: BMS/12 Lead EKG performed by [facility] ECG Report Interpretation Sinus Bradycardia -First degree A-V block Mima = 234-RSR(V1) -nondiagnostic. -Left axis. ABNORMAL Electronically signed on 07/11/2017 at 13:19 by Reynaldo Thapa 07/11/17 1321 Date Reynaldo Thapa MD CC: Rui Rea Date Dictated: 07/10/17950 Date Transcribed: 07/10/17950 Team Coordinator: CO Signed CBC W/DIFF, AUTOMATED Collected: 07/03/2017 Status: F Source: HECTOR 9:54 AM [facility] REPOSITORY TYPE CODE TESTS RESULT OUT OF RANGE REFERENCE UNITS LAB L100.1000 4.4-11.0 K/mm3 Normal WBC 7.2 LAB L100.1200 4.2-5.4 M/mm3 Normal RBC 4.98 LAB L100.1300 12.0-15.0 g/dl Normal HGB 14.6 LAB L100.1400 37-47 % Normal HCT 44.2 LAB L100.1500 81-99 fL Normal MCV 88.8 LAB L100.1600 27.0-32.0 pg Normal MCH 29.3 LAB L100.1700 32-36 g/gl Normal MCHC 33.0 LAB L100.1810 11.6-14.6 % Normal RDW CV 13.3 LAB L100.1820 35.1-43.9 fl Normal RDW SD 42.9 LAB L100.1900 150-450 K/mm3 Normal PLT 192 LAB L100.2000 6.2-12.0 fl Normal MPV 9.9 LAB L100.2100 47-70 % Normal NEUT% 67.5 LAB L100.2200 19-41 % Normal LY% 22.2 LAB L100.2300 0-10 % Normal MONO% 7.8 LAB L100.2400 0-5 % Normal EO% 1.8 LAB L100.2500 0-1 % Normal BASO% 0.3 LAB L100.2550 0.0-0.9 % Normal IM GRAN % 0.400 Result Comment: IG% - Immature Granulocytes (promyelocytes, myelocytes and metamyelocytes) > 1% indicates that a LEFT SHIFT is Present. LAB L100.2620 2.0-7.7 X10 3/uL Normal Absolute Neut 4.8 LAB L100.2720 0.83-4.51 X10 3/ul Normal Absolute Lymph 1.59 Performed By: #### L100.0100 #### [facility] [address] [place], [place], [address] HEMOGLOBIN A1C Collected: 07/03/2017 Status: F Source: PENDER 9:54 AM [facility] REPOSITORY TYPE CODE TESTS RESULT OUT OF RANGE REFERENCE UNITS LAB L501.9985 4.2-6.3 % Normal HGB A1C 6.3 Performed By: #### L501.9985 #### [facility] [address] [place], [address] BASIC METABOLIC Collected: 07/03/2017 Status: F Source: PENDER PROFILE (BMP) 9:54 AM [facility] REPOSITORY TYPE CODE TESTS RESULT OUT OF RANGE REFERENCE UNITS LAB L501.0100 74-106 mg/dL High GLU 127 Result Comment: Fasting Glucose result greater than or equal to 126 mg/dL suggests DIABETES MELLITUS per A.D.A. criteria. Please note revised GLUCOSE reference range effective 2017. LAB L501.1000 7-18 mg/dL High BUN 21 LAB L501.1100 0.55-1.02 mg/dL Normal CREAT,SERUM 1.00 Result Comment: The validity of the calculated GFR AND GFRAA in patients over 70 years has not been determined. Clinical correlation is essential. LAB L501.1110 >60 mL/min Low EST GFR 59 Result Comment: Non- GFR Calc LAB L501.1115 >60 mL/min Normal EST GFR - AA 71 Result Comment: GFR Calc LAB L501.1300 10-20 RATIO High BUN/CRE 21.1 LAB L501.2200 8.5-10.1 mg/dL CA Normal 9.6 LAB L501.5300 136-145 mmol/L NA Normal 138 LAB L501.5600 3.5-5.1 mmol/L K Normal 5.1 LAB L501.5900 98-107 mmol/L CL Normal 105 LAB L501.6100 21.0-32.0 mmol/L Normal CO2 28.0 LAB L501.6200 5-15 Normal GAP 5 Performed By: #### L500.2500, L501.5200, L501.9520, L506.0400 #### [facility] [address] [place], [address] MAGNESIUM Collected: 07/03/2017 Status: F Source: HECTOR 9:54 AM [facility] REPOSITORY TYPE CODE TESTS RESULT OUT OF RANGE REFERENCE UNITS LAB L501.5200 1.6-2.6 mg/dL Normal MG 2.5 Performed By: #### L500.2500, L501.5200, L501.9520, L506.0400 #### [facility] [address] [place], [address] THYROID STIM HORMONE Collected: 07/03/2017 Status: F Source: HECTOR (TSH) 9:54 AM [facility] REPOSITORY TYPE CODE TESTS RESULT OUT OF RANGE REFERENCE UNITS LAB L501.9520 0.358-3.74 uIU/mL Normal TSH 2.01 Performed By: #### L500.2500, L501.5200, L501.9520, L506.0400 #### [facility] [address] [place], [address] T4 FREE DIRECT Collected: 07/03/2017 Status: F Source: PENDER 9:54 AM [facility] REPOSITORY TYPE CODE TESTS RESULT OUT OF RANGE REFERENCE UNITS LAB L506.0400 0.76-1.46 ng/dL Normal T4 FREE 0.88 DIRECT Performed By: #### L500.2500, L501.5200, L501.9520, L506.0400 #### [facility] [address] [place], [address] PROGRESS Observed: 05/29/2017 Status: COMPLETED Source: [place] 5:26 PM [facility] REPOSITORY HNO ID: [id number] Author: Regina Patrick) Collin Service: (none) Author Type: Physician Collections Analyst Type: Progress Notes Filed: 05/29/2017 5:46 PM Note Text: Subjective HPI Shirley Shultz is a 72 year old female who presents left knee pain from jumping on a small indoor trampoline on 05/27/17. She did not fall on the left leg or land in an awkward position. She did not expedience any immediate pain, but it developed after getting off the trampoline. The pain is located on the medial aspect of the left knee. She has been icing, and taking acetaminophen. She has crutches at home but has not used them. No past medical history on file. No past surgical history on file. ALLERGIES Bactrim [Sulfamethoxazole]; Codeine; Loratadine; Methylprednisolone; Mobic [Meloxicam]; Multaq [Dronedarone]; Penicillins MEDICATIONS Cholecalciferol, Vitamin D3, (VITAMIN D) 1,000 unit cap Take 1,000 Units by mouth once daily. flecainide (TAMBOCOR) 100 mg tablet Take 50 mg by mouth twice daily. rivaroxaban (XARELTO) 20 mg tablet Take 20 mg by mouth daily with dinner. nebivolol (BYSTOLIC) 5 mg tablet Take 5 mg by mouth once daily. DIGOXIN ORAL Take by mouth. diazepam 5 mg tablet Take 5 mg by mouth every 6 hours as needed. citalopram hydrobromide 10 mg tablet Take 20 mg by mouth once daily. aspirin 325 mg tablet Take 325 mg by mouth once daily. Calcium Carbonate-Vitamin D3 (VITAMIN D-3) 180-5,000 mg-unit Tab Take by mouth. gabapentin 300 mg capsule Take by mouth. TAKE ONE(1) TABLET DAILY FOR 5 DAYS, THEN TAKE ONE(1) TABLET TWO(2) TIMES DAILY FOR 5 DAYS, THEN TAKE ONE(1) TABLET THREE TIMES DAILY. No family history on file. Social History Substance Use Topics - Smoking status: Never Smoker - Smokeless tobacco: Never Used - Alcohol use No Review of Systems Musculoskeletal: Positive for joint pain. All other systems reviewed and are negative. Objective Physical Exam Constitutional: She is well-developed, well-nourished, and in no distress. Cardiovascular: Normal rate, regular rhythm and normal heart sounds. Musculoskeletal: Normal range of motion. She exhibits tenderness. She exhibits no edema or deformity. ROM: Full flexion and extension with end range pain. Gait: mildly antalgic. Positive Moe's testing. Negative varus/valgus testing. Negative anterior drawer. Skin: Skin is warm and dry. Blood pressure 118/64, pulse 78, temperature 36.9 ?C (98.5 ?F), temperature source Left Tympanic, resp. rate 16, weight 91.6 kg (202 lb). ASSESSMENT/PLAN: 1. Sprain of left knee, unspecified ligament, initial encounter - ICD9: 844.9, ICD10: S83.92XA Instructed patient that there is a small risk of systemic absorption. She was asked to inform her Aluminum Siding Mechanic. Continue to ice the knee. Use crutches as needed. Decrease weight bearing when able. Consider Orthopedic referral if no improvement in the next week. - DICLOFENAC 1 % TOPICAL GEL WES Luther Observed: 05/29/2017 Status: COMPLETED Source: [place] 5:00 PM [facility] REPOSITORY Office Visit ([facility]) SHIRLEY SHULTZ ([id number]) 1945 F U[employer] Date Time Provider Department 05/29/17 5:00 PM REGINA POLANCO) [facility]STR During your visit today, we recorded the following information about you: Temperature Pulse Respiration Blood pressure 98.5 degrees 78/minute 16/minute 118/64 Weight 91.6 kg Regina Polanco PA-C 05/29/2017 5:46 PM Signed Subjective HPI Shirley Shultz is a 72 year old female who presents left knee pain from jumping on a small indoor trampoline on 05/27/17. She did not fall on the left leg or land in an awkward position. She did not expedience any immediate pain, but it developed after getting off the trampoline. The pain is located on the medial aspect of the left knee. She has been icing, and taking acetaminophen. She has crutches at home but has not used them. No past medical history on file. No past surgical history on file. ALLERGIES Bactrim [Sulfamethoxazole]; Codeine; Loratadine; Methylprednisolone; Mobic [Meloxicam]; Multaq [Dronedarone]; Penicillins MEDICATIONS Cholecalciferol, Vitamin D3, (VITAMIN D) 1,000 unit cap Take 1,000 Units by mouth once daily. flecainide (TAMBOCOR) 100 mg tablet Take 50 mg by mouth twice daily. rivaroxaban (XARELTO) 20 mg tablet Take 20 mg by mouth daily with dinner. nebivolol (BYSTOLIC) 5 mg tablet Take 5 mg by mouth once daily. DIGOXIN ORAL Take by mouth. diazepam 5 mg tablet Take 5 mg by mouth every 6 hours as needed. citalopram hydrobromide 10 mg tablet Take 20 mg by mouth once daily. aspirin 325 mg tablet Take 325 mg by mouth once daily. Calcium Carbonate-Vitamin D3 (VITAMIN D-3) 180-5,000 mg-unit Tab Take by mouth. gabapentin 300 mg capsule Take by mouth. TAKE ONE(1) TABLET DAILY FOR 5 DAYS, THEN TAKE ONE(1) TABLET TWO(2) TIMES DAILY FOR 5 DAYS, THEN TAKE ONE(1) TABLET THREE TIMES DAILY. No family history on file. Social History Substance Use Topics - Smoking status: Never Smoker - Smokeless tobacco: Never Used - Alcohol use No Review of Systems Musculoskeletal: Positive for joint pain. All other systems reviewed and are negative. Objective Physical Exam Constitutional: She is well-developed, well-nourished, and in no distress. Cardiovascular: Normal rate, regular rhythm and normal heart sounds. Musculoskeletal: Normal range of motion. She exhibits tenderness. She exhibits no edema or deformity. ROM: Full flexion and extension with end range pain. Gait: mildly antalgic. Positive Moe's testing. Negative varus/valgus testing. Negative anterior drawer. Skin: Skin is warm and dry. Blood pressure 118/64, pulse 78, temperature 36.9 ?C (98.5 ?F), temperature source Left Tympanic, resp. rate 16, weight 91.6 kg (202 lb). ASSESSMENT/PLAN: 1. Sprain of left knee, unspecified ligament, initial encounter - ICD9: 844.9, ICD10: S83.92XA Instructed patient that there is a small risk of systemic absorption. She was asked to inform her Aluminum Siding Mechanic. Continue to ice the knee. Use crutches as needed. Decrease weight bearing when able. Consider Orthopedic referral if no improvement in the next week. - DICLOFENAC 1 % TOPICAL GEL Regina Polanco PA-C Referring Provider: SELF [200] Allergies As of Date: 05/29/2017 Noted Allergy Reaction BACTRIM (SULFAMETHOXAZOLE) 07/06/2011 8 - GI Upset 11 - Vomiting CODEINE 07/06/2011 8 - GI Upset 11 - Vomiting LORATADINE 07/06/2011 8 - GI Upset 11 - Vomiting METHYLPREDNISOLONE 07/06/2011 8 - GI Upset 11 - Vomiting MOBIC (MELOXICAM) 05/29/2017 16 - Unknown MULTAQ (DRONEDARONE) 05/29/2017 16 - Unknown PENICILLINS 05/29/2017 12 - Shortness of Breath Date Reviewed: 05/29/2017 Reviewed by: Beth Rider LPN - Fully Assessed Reason for Visit: Knee Pain [132] Cmt: x 3 days knee pain swelling and pain after injury Primary Visit Diagnosis:Sprain of left knee, unspecified ligament, initial encounter [S83.92XA] Order(s):diclofenac sodium (VOLTAREN) 1 % topical gelApply 2 g to affected area four times daily.Disp: 1 TubeRfl: 0 Prescriptions as of 05/29/2017 Sig: CHOLECALCIFEROL (VITAMIN D3) * Take 1,000 Units by mouth onc* FLECAINIDE 100 MG TABLET Take 50 mg by mouth twice louisa* RIVAROXABAN 20 MG TABLET Take 20 mg by mouth daily wit* DICLOFENAC 1 % TOPICAL GEL Apply 2 g to affected area fo* * NEBIVOLOL 5 MG TABLET Take 5 mg by mouth once daily. * DIGOXIN ORAL Take by mouth. * DIAZEPAM 5 MG TABLET Take 5 mg by mouth every 6 ho* * CITALOPRAM 10 MG TABLET Take 20 mg by mouth once bea* * ASPIRIN 325 MG TABLET Take 325 mg by mouth once louisa* * CALCIUM CARBONATE-VITAMIN D3 * Take by mouth. GABAPENTIN 300 MG CAPSULE Take by mouth. TAKE ONE(1) T* Medication notes this encounter NEBIVOLOL 5 MG TABLET >> Beth E Amado NURSE SPECIALIST 05/29/2017 5:11 PM >> AMADO, BETH E NURSE SPECIALIST SunMay 29, 2017 5:11 PM Not taking >> Beth E Amado NURSE SPECIALIST 05/29/2017 5:11 PM >> AMADO, BETH E NURSE SPECIALIST SunMay 29, 2017 5:11 PM DIGOXIN ORAL >> Beth E Amado NURSE SPECIALIST 05/29/2017 5:10 PM >> AMADO, BETH E NURSE SPECIALIST SunMay 29, 2017 5:10 PM Not taking DIAZEPAM 5 MG TABLET >> Beth E Amado NURSE SPECIALIST 05/29/2017 5:10 PM >> AMADO, BETH E NURSE SPECIALIST SunMay 29, 2017 5:10 PM Not taking ASPIRIN 325 MG TABLET >> Beth E Amado NURSE SPECIALIST 05/29/2017 5:09 PM >> AMADO, BETH E NURSE SPECIALIST SunMay 29, 2017 5:09 PM Not taking CALCIUM CARBONATE-VITAMIN D3 180 MG-5,000 UNIT TABLET >> Beth E Amado NURSE SPECIALIST 05/29/2017 5:10 PM >> AMADO, BETH E NURSE SPECIALIST SunMay 29, 2017 5:10 PM Not taking GABAPENTIN 300 MG CAPSULE >> Beth E Amado NURSE SPECIALIST 05/29/2017 5:11 PM >> AMADO, BETH E NURSE SPECIALIST SunMay 29, 2017 5:11 PM Not taking Problem List As Of Date: 05/29/2017 (None) Prescriptions ordered this encounter Disp Refills Start End DICLOFENAC 1 % TOPICAL GEL 1 Tu* 0 05/29/2017 Route: TOPICAL Sig: Apply 2 g to affected area four times daily. Encounter Status:Closed by COLLIN HARVEY, REGINA on 05/29/17 ALLERGIES ALLERGIES DATE TYPE / NAME / CODE REACTION SEVERITY SOURCE CODE 01/08/2018 Drug codeine/[id number](RXNOR Other Unknown [place] Allergy/41 M) Community [id number]([facility]) Repository 01/08/2018 Drug methylprednisolone/F0060 Other Unknown [place] Allergy/41 41578(RXNORM) Community [id number]([facility]) Repository 01/08/2018 Drug sulfamethoxazole/D580263 Nausea/Vom/Di Unknown [place] Allergy/41 827([facility]NORM[id number] 01/08/2018 Drug trimethoprim/[id number]( Nausea/Vom/Di Unknown [place] Allergy/41 [facility]NORM[facility] [id number][facility] Repository 01/08/2018 Drug loratadine/[id number](RX Other Unknown [place] Allergy/41 NORM) Community 9316927([facility]) Repository 01/08/2018 Drug meloxicam/[id number](RXN Other Unknown [place] Allergy/41 ORM) Community 9174813([facility]) Repository 01/08/2018 Drug Penicillins/[id number](R NAUSEA AND Unknown [place] Allergy/41 XNORM) VOMITING Community 0570667([facility]) Repository 01/08/2018 Drug dronedarone/[id number](R gi upset Unknown [place] Allergy/41 XNORM) Community 7325913([facility]) Repository 07/06/2011 DRUG SULFAMETHOXAZOLE GI UPSET [place] [facility]/41 Clinic Main [id number]([facility]) Repository 07/06/2011 DRUG CODEINE GI UPSET [place] [facility]/41 Clinic Main [id number]([facility]) Repository 07/06/2011 DRUG LORATADINE GI UPSET [place] [facility]/41 Clinic Main [id number]([facility]) Repository 07/06/2011 DRUG [facility]OL[facility] [id number][facility] Repository ENCOUNTERS ENCOUNTERS ADMIT/DISCHARGE ACCOUNT ADMITTING ENCOUNTER LOCATION SOURCE NUMBER CLASS 01/23/2018/01/24/20 [id number] Ambulatory BMSBuilding:B [place] [facility] Repository 01/23/2018 [id number] Ambulatory BMSBuilding:B [place] MS.[facility] Repository 01/23/2018 [id number] Ambulatory General acute hospital Hospital ing:[facility] Repository 01/15/2018 [id number] Ambulatory BMSBuilding:B [place] MS.[facility] Repository 01/15/2018 [id number] Ambulatory BMSBuilding:B [place] MS.[facility] Repository 01/15/2018/01/16/20 [id number] Ambulatory [address] Hospital ing:[facility] Repository 01/08/2018/01/09/20 [id number] Ambulatory BMSBuilding:B [place] 18 [facility] Repository 12/24/2017/12/25/19 [id number] Emergency [address] Hospital ing:ED Repository 12/24/2017 [id number] Ambulatory BMSBuilding:W H[facility] Repository 07/10/2017/07/11/19 [id number] Ambulatory BMSBuilding:B [place] [facility] Repository 07/06/2017 [id number] Ambulatory BMSBuilding:B [place] [facility] Repository 07/03/2017 [id number] Ambulatory General acute hospital Hospital ing:[facility] Repository 05/29/2017/05/31/19 [id number] Ambulatory [address] Repository PAYERS PAYERS ENCOUNTER GUARANTOR PAYER SUBSCRIBER SOURCE 01/23/2018 SHIRLEY W Primary SHIRLEY W [place] [id number] Insurance:[facility] [place]: Community [address], MEDICAREPolicy [id number][facility] [address]Mjs: Number: Repository [id number] (HP) Date:5567-43-02[address] [address]EZ: 01/23/2018 Secondary NOT GIVENUNK [place] Insurance:SELF PAY [facility] Number: Effective Repository Date:2018-01-23 01/23/2018 SHIRLEY W Primary SHIRLEY W [place] [id number] Insurance:[facility] [employer] JERRETTDOB: Community [address], MEDICAREPolicy [id number]-Canoncito-Lag[facility] [address]Npm: Number: Repository [id number] (HP) Date:3678-84-32[address] [place] [address] 924[address]DF: 01/23/2018 Secondary NOT GIVENUNK [place] Insurance:SELF PAY [facility] Number: Effective Repository Date:2018-01-23 01/23/2018 SHIRLEY W Primary SHIRLEY W [place] [id number] Insurance:[employer] JERRETTDOB: Community [address], MEDICAREPolicy [id number]-Canoncito-Laguna Hospital [address]Rcl: Number: Repository [id number] (HP) Date:4886-93-18[address], [place] [address]EL: 01/23/2018 Secondary NOT GIVENUNK [place] Insurance:SELF PAY [facility] Number: Effective Repository Date:2018-01-08 01/15/2018 SHIRLEY W Primary SHIRLEY W [place] [id number] Insurance:[employer] JERRETTDOB: Community [address], MEDICAREPolicy [id number]-Canonc[facility] [address]Jut: Number: Repository [id number] (HP) Date:3835-01-78DR [address] [place] [address]ZQ: 01/15/2018 Secondary NOT GIVENUNK [place] Insurance:SELF PAY [facility] Number: Effective Repository Date:2018-01-15 01/15/2018 SHIRLEY W Primary SHIRLEY W [place] [id number] Insurance:[employer] JERRETTDOB: Community [address], MEDICAREPolicy [id number]-Canoncito-Lag[facility] Hospital [address]Qfn: Number: Repository [id number] (HP) Date:6763-38-96[address] [place] [address]WV: 01/15/2018 Secondary NOT GIVENUNK [place] Insurance:SELF PAY [facility] Number: Effective Repository Date:2018-01-15 01/15/2018 SHIRLEY W Primary SHIRLEY W [place] [id number] Insurance:[employer] JERRETTDOB: Community [address], MEDICAREPolicy [id number]-Canoncito-Lag[facility] Hospital [address]Unn: Number: Repository [id number] (HP) Date:9145-96-09KH [address] [place] [address]BL: 01/15/2018 Secondary NOT GIVENUNK [place] Insurance:SELF PAY [facility] Number: Effective Repository Date:2018-01-08 01/08/2018 SHIRLEY W Primary SHIRLEY W [place] [id number] Insurance:[employer] JERRETTDOB: Community [address], MEDICAREPolicy [id number]-Canoncito-[facility] [address]Dwk: Number: Repository [id number] (HP) Date:9871-73-78MB [address] [place] [address] 306[address]RM: 01/08/2018 Secondary NOT GIVENUNK [place] Insurance:SELF PAY [facility] Number: Effective Repository Date:2018-01-08 12/24/2017 SHIRLEY W Primary SHIRLEY W [place] [id number] Insurance:[employer] JERRETTDOB: Community [address], MEDICAREPolicy [id number]-Canoncito-Lag[facility] Hospital [address]Lld: Number: Repository [id number] (HP) Date:8752-34-08ZS [address] [place] [address] 20425PU: 12/24/2017 Secondary NOT GIVENUNK [place] Insurance:SELF PAY [facility] Number: Effective Repository Date:2017-12-24 12/24/2017 SHIRLEY W Primary SHIRLEY W [place] [id number] Insurance:[employer] JERRETTDOB: Community [address], MEDICAREPolicy [id number]-Canoncito-Lag[facility] Hospital [address]Dil: Number: Repository [id number] (HP) Date:9709-91-61EY [address] [place] [address] 548[address]TR: 12/24/2017 Secondary NOT GIVENUNK [place] Insurance:SELF PAY [facility] Number: Effective Repository Date:2017-12-24 07/10/2017 SHIRLEY W Primary SHIRLEY W [place] [id number] Insurance:[employer] CARE JERRETTDOB: Community MARKET MEDICAREPolicy [id number]: Repository [id number]: [phone] [id number] [phone] (HP) Date:5175-85-23RZ [address], [place] [address]EB: 07/10/2017 Secondary NOT GIVENUNK [place] Insurance:SELF PAY [facility] Number: Effective Repository Date:2017-07-10 07/06/2017 SHIRLEY W Primary SHIRLEY W [place] [id number] Insurance:[employer] JERRETTDOB: Community [address], MEDICAREPolicy [id number]-Canoncito-Lag[facility] Hospital [address]Iwd: Number: Repository [id number] (HP) Date:1721-55-35VJ [address] [place] [address] 78759YP: 07/06/2017 Secondary NOT GIVENUNK [place] Insurance:SELF PAY [facility] Number: Effective Repository Date:2017-07-06 07/03/2017 SHIRLEY W Primary SHIRLEY W [place] [id number] Insurance:[employer] JERRETTDOB: Community [address], MEDICAREPolicy [id number]-Canonc[facility] [address]Jvn: Number: Repository [id number] (HP) Date:5802-40-59KF [address] [place] [address]OA: 07/03/2017 Secondary NOT GIVENUNK [place] Insurance:SELF PAY [facility]: Effective Repository Date:2017-07-03
== END 2018-01-15 13:15 | disposition home or self-care (01) ==
LOC: CLSP 11:15
PROVIDERS: Family Provider Family Medicine; PCP Family Medicine; Referring Provider Internal Medicine Cardiovascular Disease; Visit Provider Internal Medicine Cardiovascular Disease
DX: I48.0 Paroxysmal atrial fibrillation (principal); I48.2 Chronic atrial fibrillation; I10 Essential (primary) hypertension; E78.5 Hyperlipidemia, unspecified; G47.33 Obstructive sleep apnea (adult) (pediatric); F32.9 Major depressive disorder, single episode, unspecified; Z79.01 Long term (current) use of anticoagulants; Z79.899 Other long term (current) drug therapy; Z82.49 Family history of ischemic heart disease and other diseases of the circulatory system; Z83.3 Family history of diabetes mellitus
CPT/HCPCS: 99156; 92960; 93005; J7040

== ENCOUNTER → 2018-01-23 10:40 | Outpatient (CLI) | payer MEDICARE, SELFPAY ==
--- NOTE | 2018-01-23 10:45 | ECHOD_ITS ---
Reason For Study: AFIB/FLUTTER Procedure This was a 2D Doppler, Color Flow transthoracic echocardiogram. Exam performed in department. Left Ventricle Normal LV size. Left ventricular systolic function is normal. The estimated ejection fraction is 60 %. No evidence for diastolic dysfunction. No regional wall motion abnormalities noted. Right Ventricle Normal RV size. Normal systolic function. Atria Normal left atrium. Normal right atrium. Mitral Valve Normal mitral valve. Mild (1+) eccentric mitral valve insufficiency. Tricuspid Valve Normal tricuspid valve. Mild (1+) tricuspid valve insufficiency. Pulmonary artery systolic pressure is 27 mmHg. Aortic Valve Normal aortic valve. Trisinus/trileaflet aortic valve. Pulmonic Valve Normal pulmonic valve. Great Vessels Normal aortic root. The pulmonary artery is normal size. Normal inferior vena cava. Pericardium/Pleural No pericardial effusion. MMode/2D Measurements & Calculations LVIDd: 5.1 cm IVSd: 0.92 cm Ao root diam: 2.8 cm LVIDs: 3.4 cm LVPWd: 0.94 cm RVDd: 3.1 cm FS: 34.0 % LAV(MOD-bp): 60.9 ml LA A4 area: 19.6 cm2 LA dimension(2D): 4.0 cm LAV(MOD-bp) Indexed: 30.7 ml/m2 LAV(MOD-sp2): 68.5 ml LAV(MOD-sp4): 52.8 ml RA A4 area: 20.7 cm2 Time Measurements MV dec time: 0.17 sec Doppler Measurements & Calculations MV E max octaviano: 124.6 cm/sec Lat Peak E' Octaviano: 7.8 cm/sec Med Peak E' Octaviano: 9.7 cm/sec MV A max octaviano: 69.3 cm/sec E/E' lat: 15.9 E/E' med: 12.8 MV E/A: 1.8 Ao V2 max: 152.4 cm/sec LV V1 max: 124.6 cm/sec PA V2 max: 90.1 cm/sec Ao max P.3 mmHg LV V1 max P.2 mmHg TR max octaviano: 237.0 cm/sec TR max P.5 mmHg Interpretation Summary Normal LV size. Left ventricular systolic function is normal. The estimated ejection fraction is 60 %. No evidence for diastolic dysfunction. Mild (1+) eccentric mitral valve insufficiency. Pulmonary artery systolic pressure is 27 mmHg. Ordering Physician: Reynaldo Thapa Referring Physician: Rui Rea Performed By: Alesia Carmichael, MACIECS, RVT
== END ==
PROVIDERS: Family Provider Family Medicine; PCP Family Medicine; Referring Provider Internal Medicine Cardiovascular Disease; Visit Provider Internal Medicine Cardiovascular Disease
DX: I48.0 Paroxysmal atrial fibrillation (principal)
CPT/HCPCS: 93306

== ENCOUNTER → 2018-05-20 06:52 | Outpatient (CLI) | payer MEDICARE, SELFPAY ==
[2018-05-08 10:26] VITALS: BMI 37.0
--- NOTE | 2018-05-20 11:48 | STRESSREP ---
Stress Test Report Exercise myocardial perfusion stress test. 73-year-old lady with a history of chest pain. Stress protocol: Resting EKG demonstrates sinus bradycardia with a rate of 55 bpm normal intervals noted resting blood pressure 126/80 mmHg. The patient exercised according to regular Rafael protocol for total duration of 4 minutes and 19 seconds the maximum heart rate attained was 103 bpm which was 69% of maximum predicted heart rate. The maximum workload was 6.1 metabolic equivalents. Patient completed 1 minute and 19 seconds into stage II of the Rafael protocol. At rest there were no ST or T wave changes noted suggest ischemia at peak exercise upsloping ST changes only were noted we did not meet the criteria for ischemia. Resting blood pressure 126/80 mmHg with a peak blood pressure 180/72 mmHg. Myocardial perfusion protocol. 11.4 mCi of technetium 99m sestamibi was injected at rest. Patient exercised according to regular Rafael protocol for 4 minutes and 19 seconds at peak exercise 34.1 mCi of technetium 99m sestamibi was injected stress images were obtained stress and rest images were reconstructed and compared in the short axis vertical and horizontal long axis. Gated images were also obtained per Perfusion SPECT analysis: Review of the stress images demonstrate mild reduction in the anterior wall on the stress and rest images to a similar extent. The above is suggestive of anterior breast wall attenuation artifact noted. No obvious reversibility is noted suggest ischemia. No previous infarct is noted. Gated SPECT analysis: The gated ejection fraction is noted to be 77%. Conclusion: Normal myocardial perfusion stress test with a low to moderate workload. Anterior breast wall attenuation likely. Preserved ejection fraction.
== END ==
PROVIDERS: Family Provider Family Medicine; PCP Family Medicine; Referring Provider Physician Assistant Medical; Visit Provider Physician Assistant Medical
DX: I48.0 Paroxysmal atrial fibrillation (principal); R07.9 Chest pain, unspecified
CPT/HCPCS: 78452; 93017; A9500; A4216

== ENCOUNTER → 2018-07-10 16:43 | Outpatient (CLI) | payer MEDICARE, SELFPAY ==
[2018-05-08 10:26] VITALS: BMI 37.0
== END ==
PROVIDERS: Family Provider Family Medicine; PCP Family Medicine; Visit Provider Family Medicine
DX: N39.0 Urinary tract infection, site not specified (principal)
CPT/HCPCS: 87086; 87088

== ENCOUNTER 2018-07-20 14:13 | Observation (INO) | payer MEDICARE, SELFPAY ==
[2018-05-08 10:26] VITALS: BMI 37.0
[2018-07-20] VITALS (7 sets, daily range): BP systolic 124–158; BP diastolic 60–83; PULSE 54–63; RESP 16–20; TEMP 36.5–37.2; O2SAT 94–98; BMI 36.6
--- NOTE | 2018-07-20 14:52 | RAD_ITS ---
STUDY: X-RAY CHEST REASON FOR EXAM: Female, 73 years old. Epigastric pain TECHNIQUE: AP COMPARISON: 12/24/2017 FINDINGS: EKG leads project over the chest. The lungs are clear and expanded. There is no demonstrated pleural abnormality. There is borderline cardiomegaly. Normal mediastinum and lucita. Normal visualized pulmonary arteries. There is atherosclerotic calcification of the aortic arch with tortuosity. Normal visualized thoracic spine. Normal visualized ribs, clavicles, and shoulders. There is no demonstrated abnormality of the visualized soft tissue structures of the upper abdomen. RAD/Chest 1 View (Portable) IMPRESSION: Stable, nonacute portable x-ray examination of the chest. Electronically Signed: Abdulkadir Leonardo MD at 15:28 EDT , Service support ,
--- NOTE | 2018-07-20 14:52 | EKG12_ITS ---
Test Reason : CP Blood Pressure : / mmHG Vent. Rate : 066 BPM Atrial Rate : 066 BPM P-R Int : 252 ms QRS Dur : 108 ms QT Int : 438 ms P-R-T Axes : 098 -41 054 degrees QTc Int : 459 ms Sinus rhythm with 1st degree A-V block Left axis deviation Pulmonary disease pattern Incomplete right bundle branch block Abnormal ECG Confirmed by ED HURT, YUE ([id number]), editor index BALA MALLOY ([id number]) on 07/22/2018 11:44:19 AM Referred By: Mya Oreilly Confirmed By:YUE WARD MD
[2018-07-20 15:04] LABS: Absolute Lymphocyte Count 1.58 X10^3/ul (0.83-4.51); Absolute Neutrophil Count 5.7 X10^3/uL (2.0-7.7); Basophil# 0.01 X10^3/uL; Basophil% 0.1 % (0-1); Eosinophil# 0.27 X10^3/uL; Eosinophils% 3.2 % (0-5); Hematocrit 41.3 % (37-47); Hemoglobin 14.2 g/dl (12.0-15.0); Lymphocyte # 1.58 X10^3/ul (4.0); Lymphocyte % 18.6 % (19-41); Mean Corp Hgb Conc 34.4 g/gl (32-36); Mean Corpuscular Volume 87.1 fL (81-99); Mean Platelet Vol. 9.5 fl (6.2-12.0); Monocyte# 0.85 X10^3/uL; Neutrophil # 5.73 X10^3/uL (2.7-7.7); Neutrophil % 67.6 % (47-70); POSITIVE COUNT NO; POSITIVE DIFFERENTIAL NO; POSITIVE MORPHOLOGY NO; Platelet Count 213 K/mm3 (150-450); RBC Distribution Width CV 13.2 % (11.6-14.6); RBC Distribution Width SD 42.3 fl (35.1-43.9); Red Blood Count 4.74 M/mm3 (4.2-5.4); White Blood Count 8.5 K/mm3 (4.4-11.0)
[2018-07-20 15:21] LABS: Anion Gap 7 (5-15); BUN 18 mg/dL (7-18); BUN/Creat Ratio 17.1 RATIO (10-20); Calcium,Total 9.6 mg/dL (8.5-10.1); Chloride 105 mmol/L (98-107); Creatinine, Serum 1.05 mg/dL (0.55-1.02); EST Glomerular Filtration Rate 55 mL/min (>60); Est Glom Filt Rate - Afr Amer 66 mL/min (>60); Estimated Creatinine Clearance 42.44 ml/min; Glucose 116 mg/dL (74-106); Lipase 96 U/L (73-393); Potassium 3.7 mmol/L (3.5-5.1); Sodium Level 137 mmol/L (136-145)
[2018-07-20] MEDS: Aspirin 81 MG TAB.CHEW 324 MG PO (15:23)
--- NOTE | 2018-07-20 15:38 | ED.VISSUMM ---
- ER Visit Summary Date of Service: 07/20/18 Chief Complaint: Chest pain History of Present Illness: The patient is a 73 F presenting with chest pain. Patient complains of lower chest and epigastric pain. She states this started yesterday. Pain was intermittent yesterday and more constant today. She states that pain intermittently goes into her left shoulder. She has associated shortness of breath and nausea. She had a stress test in May which was unremarkable. She has a history of A. fib and is on Xarelto. Physical Examination: Vitals are stable. Patient is afebrile. Alert no acute distress. HEENT exam is unremarkable. Neck is supple. Lungs are clear and equal bilaterally. Heart is regular rate and rhythm. Abdomen is soft nontender nondistended. Extremities are unremarkable. Skin is warm and dry. No focal neurologic deficit. Remainder of exam is unremarkable. Emergency Department Course and Treatment: EKG is sinus rate of 66 with no acute ischemic changes. CBC, chemistries unremarkable. Lipase is 96. Troponin is negative. She was given aspirin on arrival. Chest x-ray shows no acute process. On reevaluation, patient's pain is improved. Discussed with Dr. Raymundo and the hospitalist. Patient will be observed. Disposition: Observation Impression: Chest pain This note was generated with [employer] dictation software. It may contain incorrect words, spelling, and punctuation that were not noted in review of the chart prior to signing ED Disposition - Plan for ED Patient: Referrals: Rui Rea MD [Primary Care Provider] -
--- NOTE | 2018-07-20 17:46 | NURSING ---
PCU OBS CP PAINTSIL
--- NOTE | 2018-07-20 18:34 | EKG12_ITS ---
Test Reason : CP ADMISSION Blood Pressure : / mmHG Vent. Rate : 056 BPM Atrial Rate : 056 BPM P-R Int : 246 ms QRS Dur : 102 ms QT Int : 432 ms P-R-T Axes : 088 -28 046 degrees QTc Int : 416 ms Sinus bradycardia with 1st degree A-V block Leftward axis Poor R wave progression Confirmed by DESIREE HURT, JANE ([id number]), newspaper photo editor BALA MALLOY ([id number]) on 07/26/2018 6:47:12 AM Referred By: Mya Oreilly Confirmed By:JANE RAMÍREZ MD
[2018-07-20] MEDS: 0.9% Normal Saline 1,000 ML 75 ML IV (19:40)
[2018-07-20] MEDS: Acetaminophen 325 MG Tablet 650 MG PO (19:55)
--- NOTE | 2018-07-20 20:04 | PCM.HP.STD ---
Problem List (1) Chest pain Status: Acute Qualifiers: Chest pain type: unspecified Qualified Code(s): R07.9 - Chest pain, unspecified (2) HTN (hypertension) Status: Chronic Qualifiers: Hypertension type: essential hypertension Qualified Code(s): I10 - Essential (primary) hypertension (3) HLD (hyperlipidemia) Status: Chronic Qualifiers: Hyperlipidemia type: unspecified Qualified Code(s): E78.5 - Hyperlipidemia, unspecified (4) Paroxysmal atrial fibrillation Status: Chronic (5) IRON (obstructive sleep apnea) Status: Chronic Comment: not compliant with CPAP. History of Present Illness Date of Admission: 07/20/18 Chief Complaint: Chest pain - 1 day The patient is a 73 year old F with past medical history of hypertension, hyperlipidemia, IRON not on CPAP who comes in with complaints of lower substernal and epigastric pain that started on the day of admission. Pain is described as sharp, radiates to the left parasternal region, lasts for a few seconds and goes away. This felt just like when she had atrial fibrillation. And she got worried and decided to come to the emergency department. She denies any palpitations or dizziness or shortness of breath or PND orthopnea. In the ED, her vitals showed the patient 90 9.0F, heart rate 63, blood pressure 158/83, respiratory rate 18, SPO2 is 98% on room air. Admitting blood work showed unremarkable CBC D, BMP was also unremarkable. Chest X-ray shows no acute cardio-pulmonary process. EKG shows normal sinus rhythm, no acute ST changes. Past Medical History Past Medical History (Chronic Problems): Chronic Problems (Last Reviewed 01/08/18 @ 11:25 by Reynaldo Thapa MD) Family history of cardiovascular disease (Chronic) brother of an UT and mother at 69 YOA with CVD HTN (hypertension) (Chronic) HLD (hyperlipidemia) (Chronic) Paroxysmal atrial fibrillation (Chronic) IRON (obstructive sleep apnea) (Chronic) not compliant with CPAP. Family history of diabetes mellitus (Chronic) son hs DM History of detached retina repair (Chronic) Medical History: Medical History (Last Reviewed 01/08/18 @ 11:25 by Reynaldo Thapa MD) HTN (hypertension) (Chronic) I10 HLD (hyperlipidemia) (Chronic) E78.5 Paroxysmal atrial fibrillation (Chronic) I48.0 IRON (obstructive sleep apnea) (Chronic) G47.33 not compliant with CPAP. Anxiety F41.9 Back problem M53.9 Depression F32.9 Dysphagia R13.10 GERD (gastroesophageal reflux disease) K21.9 Hypokalemia E87.6 Allergies codeine Allergy (Verified 07/20/18 14:47) Other very sick to stomach loratadine Allergy (Verified 07/20/18 14:47) Other very sick to stomach meloxicam Allergy (Verified 07/20/18 14:47) Other methylprednisolone Allergy (Verified 07/20/18 14:47) Other dronedarone [From Multaq] Adverse Reaction (Verified 07/20/18 14:47) GI upset Penicillins Adverse Reaction (Verified 07/20/18 14:47) nausea and vomiting sulfamethoxazole [From Bactrim] Adverse Reaction (Verified 07/20/18 14:47) Nausea/Vom/Diarrhea trimethoprim [From Bactrim] Adverse Reaction (Verified 07/20/18 14:47) Nausea/Vom/Diarrhea Home Medications: Ambulatory Orders Medication Instructions Recorded RX: Citalopram [Celexa] 20 mg PO DAILY 05/19/14 cholecalciferol (vitamin D3) 1,000 1,000 unit PO QDAY 07/06/17 unit tablet nebivolol 5 mg tablet 5 mg PO DAILY #90 tab 12/06/17 flecainide 100 mg tablet 100 mg PO BID #60 tab 12/27/17 RX: Rivaroxaban [Xarelto] 20 mg PO QHS 07/20/18 Surgical History: Surgical History (Last Reviewed 01/08/18 @ 11:25 by Reynaldo Thapa MD) History of left heart catheterization Onset Date: 07/29/08 Z98.890 History of cholecystectomy Onset Date: ~1977 Z90.49 History of tubal ligation Onset Date: ~1981 Z98.51 Surgical History: cholecystectomy, - - Status post tubal ligation Psychiatric History: No pertinent psych hx 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: No pertinent 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 PROJECT MANAGER history Lives: Alone Smoking Status: Never smoker Tobacco Use: Non-smoker Alcohol: None Drugs: None - *Family History Maternal Family History: Family History (Last Reviewed 01/08/18 @ 11:25 by Reynaldo Thapa MD) Father Cancer Mother Myocardial infarction Arthritis Sister Breast cancer Brother Diabetes CHF (congestive heart failure) Myocardial infarction Son Diabetes History Items: - - mother was with heart disease at the age of 69 Paternal Family History: Family History (Last Reviewed 01/08/18 @ 11:25 by Reynaldo Thapa MD) Father Cancer Mother Myocardial infarction Arthritis Sister Breast cancer Brother Diabetes CHF (congestive heart failure) Myocardial infarction Son Diabetes History Items: - - father at the age of 69 with prostate CA Sibling Family History: Family History (Last Reviewed 01/08/18 @ 11:25 by Reynaldo Thapa MD) Father Cancer Mother Myocardial infarction Arthritis Sister Breast cancer Brother Diabetes CHF (congestive heart failure) Myocardial infarction Son Diabetes History Items: Cancer - she has a sister who at the age of 39 with breast CA Offspring Family History: Family History (Last Reviewed 01/08/18 @ 11:25 by Reynaldo Thapa MD) Father Cancer Mother Myocardial infarction Arthritis Sister Breast cancer Brother Diabetes CHF (congestive heart failure) Myocardial infarction Son Diabetes History Items: Diabetes - in her son who has already had an amputation of a toe for gangrene Review of Systems Constitutional: Denies: Anorexia, Chills, Fever, Malaise, Weakness, Weight Change Eyes: Denies: Blurred vision, Cataracts, Conjunctivae Inflammation, Pain, Redness HEENT: Denies: Difficulty Swallowing, Head Aches, Hearing Changes, Sinus Congestion, Sinus Drainage Cardiovascular: Denies: Chest Pain, Claudication, Orthopnea, Palpitations Respiratory: Denies: Cough, Hemoptysis, Shortness of breath at rest, Shortness of breath upon exertion, Sputum production Gastrointestinal: Denies: Abdominal Pain, Hematemesis, Hematochezia, Nausea, Vomiting Genitourinary: Denies: Dysuria, Frequency, Incontinence Musculoskeletal: Denies: Joint Pain, Joint stiffness, Joint swelling, Joint Tenderness Skin: Denies: Rash, Wounds Neurological: Denies: Numbness, Tingling, Focal weakness Psychiatric: Denies: Anxiety, Depression, Homicidal Ideations, Suicidal Ideations Hematologic/ Lymphatic: Denies: Easy Bruising, Easy Bleeding VTE Information - Inpt Only VTE Present on Admission: No VTE Pharm Prophylaxis ordered?: Yes Patient Problems: Active and Suspected Problems (Last Reviewed 01/08/18 @ 11:25 by Reynaldo Thapa MD) Chest pain (Acute) - Physical Exam General: Alert, Oriented x3, Cooperative, No apparent distress HEENT: Atraumatic, PERRLA, EOMI, Normocephalic Oral: Moist Mucosa Neck: Supple, No JVD, Negative Carotid Bruits Lungs: Clear to auscultation, Normal air movement Cardiovascular: Regular rate, Regular Rhythm, Normal S1, Normal S2, No murmurs Abdomen: Bowel Sounds Present, Soft, Non Tender, Non-Distended, No Hepato-splenomegaly Extremities: No edema Skin: No rashes Musculoskeletal: No Tenderness to Palpation of Joints or Extremities Lymphatic: No Cervical, Supraclavicular, or Inguinal Adenopathy Neurological: Cranial nerves II-XII grossly intact, Neuro grossly intact Psych/Mental Status: Normal Affect, Appropriate Vital Signs Temp Pulse Resp BP Pulse Ox 97.7 F L 56 L 18 157/67 H 96 07/20/18 18:44 07/20/18 19:07 07/20/18 18:44 07/20/18 18:44 07/20/18 18:44 Oxygen Flow Rate (L/min) 2 Oxygen Delivery Method Room Air Weight: 96.615 kg Body Mass Index (BMI) 36.6 Laboratory Tests Past 24 Hrs 07/20/18 07/20/18 07/20/18 14:30 14:30 18:55 WBC 8.5 RBC 4.74 Hgb 14.2 Hct 41.3 MCV 87.1 MCH 30.0 MCHC 34.4 RDW 13.2 RDW Differential 42.3 Plt Count 213 MPV 9.5 Immature Gran % (Auto) 0.500 Neut % (Auto) 67.6 Lymph % (Auto) 18.6 L Mcnairy % (Auto) 10.0 Eos % (Auto) 3.2 Baso % (Auto) 0.1 Absolute Neuts (auto) 5.7 Absolute Lymphs (auto) 1.58 Total Counted Not Reportable Sodium 137 Potassium 3.7 Chloride 105 Carbon Dioxide 25.0 Anion Gap 7 BUN 18 Creatinine 1.05 H Estim Creat Clear Calc 42.44 Est GFR (MDRD) Af Amer 66 Est GFR (MDRD) Non-Af 55 L BUN/Creatinine Ratio 17.1 Glucose 116 H Calcium 9.6 Troponin I < 0.015 < 0.015 Lipase 96 Assessment/Plan All Active Problems (Last Reviewed 01/08/18 @ 11:25 by Reynaldo Thapa MD) Chest pain (Acute) 73 year old F with past medical history of hypertension, hyperlipidemia, IRON not on CPAP who comes in with complaints of lower substernal and epigastric pain that started on the day of admission. 1. Chest pain, atypical, in a patient with multiple risk factors, EKG is unremarkable Plan: Admit to PCU, monitor on telemetry, trend troponins 2. Paroxysmal atrial fibrillation, on flecainide, nebivolol 3. Hypertension, controlled, continue home medication 3. Hyperlipidemia, on statin 4. IRON not CPAP 5. DVT PPx-heparin subcu Code Visit OBSV E&M: 50456 Initial observation care L3
[2018-07-20] MEDS: Flecainide 100 MG Tablet PO (21:12)
[2018-07-20] MEDS: Heparin Injection (Vial) 5,000 UNIT/ML VIAL 5000 UNIT SC (21:12)
[2018-07-21 01:56] VITALS: PULSE 46
[2018-07-21 03:06] VITALS: PULSE 50
[2018-07-21 03:09] VITALS: BP 135/69; PULSE 55; RESP 14; TEMP 36.6; O2SAT 96
[2018-07-21] MEDS: Heparin Injection (Vial) 5,000 UNIT/ML VIAL 5000 UNIT SC (06:12)
[2018-07-21 06:55] LABS: Anion Gap 7 (5-15); BUN 13 mg/dL (7-18); BUN/Creat Ratio 15.3 RATIO (10-20); Calcium,Total 9.1 mg/dL (8.5-10.1); Chloride 108 mmol/L (98-107); Creatinine, Serum 0.85 mg/dL (0.55-1.02); EST Glomerular Filtration Rate 70 mL/min (>60); Est Glom Filt Rate - Afr Amer 85 mL/min (>60); Estimated Creatinine Clearance 52.42 ml/min; Glucose 108 mg/dL (74-106); Potassium 3.7 mmol/L (3.5-5.1); Sodium Level 141 mmol/L (136-145)
[2018-07-21 06:56] VITALS: PULSE 55
--- NOTE | 2018-07-21 08:35 | DCINST_ITS ---
- Discharge Diagnoses Current Active Problems: Current Active and Chronic Problems (Last Reviewed 01/08/18 @ 11:25 by Reynaldo Thapa MD) Chest pain (Acute) You will use the following diet at home:: Cardiac Your food should be the consistency of: Regular Your liquids should be the consistency of: Regular/Thin Discharge Activity: Return to Normal Activity, No Restrictions Call your doctor if you observe: Fever of 101 or Higher, Shortness of breath, Dizziness, Fainting spells, Swelling in the ankles, Chest pain, Increased palpitations (irregular heartbeat) Allergies/Adverse Reactions: Allergies codeine Allergy (Verified 07/20/18 14:47) Other very sick to stomach loratadine Allergy (Verified 07/20/18 14:47) Other very sick to stomach meloxicam Allergy (Verified 07/20/18 14:47) Other methylprednisolone Allergy (Verified 07/20/18 14:47) Other dronedarone [From Multaq] Adverse Reaction (Verified 07/20/18 14:47) GI upset Penicillins Adverse Reaction (Verified 07/20/18 14:47) nausea and vomiting sulfamethoxazole [From Bactrim] Adverse Reaction (Verified 07/20/18 14:47) Nausea/Vom/Diarrhea trimethoprim [From Bactrim] Adverse Reaction (Verified 07/20/18 14:47) Nausea/Vom/Diarrhea Medications to take at Discharge Citalopram [Celexa] 20 mg PO DAILY 05/19/14 cholecalciferol (vitamin D3) 1,000 unit tablet 1,000 unit PO QDAY 07/06/17 nebivolol 5 mg tablet 5 mg PO DAILY #90 tab 12/06/17 flecainide 100 mg tablet 100 mg PO BID #60 tab 12/27/17 Rivaroxaban [Xarelto] 20 mg PO QHS 07/20/18 Primary Care Physician: Rui Rea MD [Primary Care Provider] - Please follow up with your Primary Care Physician in: 3-5 days Test Results: Test results from this visit will be discussed in further detail at your follow- up appointment, if applicable.
--- NOTE | 2018-07-21 08:46 | PCM.DC.SUM ---
Discharge Date and Diagnosis - Problem List Patient Problems: Active and Suspected Problems (Last Reviewed 01/08/18 @ 11:25 by Reynaldo Thapa MD) Chest pain (Acute) Date of Admission: 07/20/18 Date of Discharge: 07/21/18 - Primary Discharge Diagnosis Active and Suspected Problems (Last Reviewed 01/08/18 @ 11:25 by Reynaldo Thapa MD) Chest pain (Acute) - Secondary Discharge Diagnosis Chronic Problems (Last Reviewed 01/08/18 @ 11:25 by Reynaldo Thapa MD) Family history of cardiovascular disease (Chronic) brother of an SD and mother at 69 YOA with CVD HTN (hypertension) (Chronic) HLD (hyperlipidemia) (Chronic) Paroxysmal atrial fibrillation (Chronic) IRON (obstructive sleep apnea) (Chronic) not compliant with CPAP. Family history of diabetes mellitus (Chronic) son hs DM History of detached retina repair (Chronic) Hospital Course and Treatment Imaging Results: CXR IMPRESSION: Stable, nonacute portable x-ray examination of the chest. Consults: None Operations: None Procedures: None Summary of Care Provided: Per HPI: The patient is a 73 year old F with past medical history of hypertension, hyperlipidemia, IRON not on CPAP who comes in with complaints of lower substernal and epigastric pain that started on the day of admission. Pain is described as sharp, radiates to the left parasternal region, lasts for a few seconds and goes away. This felt just like when she had atrial fibrillation. And she got worried and decided to come to the emergency department. She denies any palpitations or dizziness or shortness of breath or PND orthopnea. In the ED, her vitals showed the patient 90 9.0F, heart rate 63, blood pressure 158/83, respiratory rate 18, SPO2 is 98% on room air. Admitting blood work showed unremarkable CBC D, BMP was also unremarkable. Chest X-ray shows no acute cardio-pulmonary process. EKG shows normal sinus rhythm, no acute ST changes. Hospital Course: 1. Chest pain/A. [id number]-old female with a history of hypertension hyperlipidemia presenting with lower substernal and epigastric pain. She had started on the day of admission. And was not related to any activity. She says that she is completely chest pain-free now and this was very different than the pain that caused her to have a stress test in May of this year. That stress test was normal and she had an echo in January which was also normal. She denies any shortness of breath, lightheadedness, or dizziness today. She does describe herself as an anxious person and states that her best friend in [facility] just from a heart attack over the last several days and this could possibly be related to that. Her EKG was unremarkable, her telemetry overnight was normal, and all 3 of her troponins were negative. I discussed with her the possibility of going home today and following up with cardiology as an outpatient and she felt that would be okay. I also explained that if she were to have chest pain or get short of breath or have difficulty with ambulation that she can come back to the hospital for further evaluation. We will continue all of her home medications at this time, and she can follow-up with cardiology. 2. Her other medical diagnoses were evaluated in her home medications were continued where appropriate Patient Problems: Active and Suspected Problems (Last Reviewed 01/08/18 @ 11:25 by Reynaldo Thapa MD) Chest pain (Acute) - Physical Exam General: Alert, Oriented x3, Cooperative, No apparent distress HEENT: Atraumatic, PERRLA, EOMI, Normocephalic Oral: Moist Mucosa Neck: Supple, No JVD Lungs: Clear to auscultation, Normal air movement, No rhonchi, No wheeze, No rales Cardiovascular: Regular rate, Regular Rhythm, Normal S1, Normal S2, No murmurs Abdomen: Soft, Non Tender, Non-Distended, No Hepato-splenomegaly Extremities: No edema, Capillary Refill Less than 3 Seconds Skin: No rashes, No breakdown Neurological: Neuro grossly intact, Sensory exam intact to light touch and pain Psych/Mental Status: Normal Affect, Appropriate Vital Signs Temp Pulse Resp BP Pulse Ox 97.9 F 55 L 14 135/69 H 96 07/21/18 03:09 07/21/18 06:56 07/21/18 03:09 07/21/18 03:09 07/21/18 03:09 Oxygen Flow Rate (L/min) 2 Oxygen Delivery Method Room Air Weight: 215 lb 9.793 oz Body Mass Index (BMI) 36.6 Intake and Output for Last 24 Hours 07/19/18 07/20/18 07/21/18 23:59 23:59 23:59 Intake Total 733 / 733 497 / 497 Balance 733 / 733 497 / 497 Laboratory Tests Past 24 Hrs 07/20/18 07/20/18 07/20/18 14:30 14:30 18:55 WBC 8.5 RBC 4.74 Hgb 14.2 Hct 41.3 MCV 87.1 MCH 30.0 MCHC 34.4 RDW 13.2 RDW Differential 42.3 Plt Count 213 MPV 9.5 Immature Gran % (Auto) 0.500 Neut % (Auto) 67.6 Lymph % (Auto) 18.6 L [place] % (Auto) 10.0 Eos % (Auto) 3.2 Baso % (Auto) 0.1 Absolute Neuts (auto) 5.7 Absolute Lymphs (auto) 1.58 Total Counted Not Reportable Sodium 137 Potassium 3.7 Chloride 105 Carbon Dioxide 25.0 Anion Gap 7 BUN 18 Creatinine 1.05 H Estim Creat Clear Calc 42.44 Est GFR (MDRD) Af Amer 66 Est GFR (MDRD) Non-Af 55 L BUN/Creatinine Ratio 17.1 Glucose 116 H Calcium 9.6 Troponin I < 0.015 < 0.015 Lipase 96 07/20/18 07/21/18 22:25 05:25 WBC RBC Hgb Hct MCV MCH MCHC RDW RDW Differential Plt Count MPV Immature Gran % (Auto) Neut % (Auto) Lymph % (Auto) [place] % (Auto) Eos % (Auto) Baso % (Auto) Absolute Neuts (auto) Absolute Lymphs (auto) Total Counted Sodium 141 Potassium 3.7 Chloride 108 H Carbon Dioxide 26.0 Anion Gap 7 BUN 13 Creatinine 0.85 Estim Creat Clear Calc 52.42 Est GFR (MDRD) Af Amer 85 Est GFR (MDRD) Non-Af 70 BUN/Creatinine Ratio 15.3 Glucose 108 H Calcium 9.1 Troponin I < 0.015 Lipase Discharge Activity: Return to Normal Activity, No Restrictions Call your doctor if you observe: Fever of 101 or Higher, Shortness of breath, Dizziness, Fainting spells, Swelling in the ankles, Chest pain, Increased palpitations (irregular heartbeat) Home Medications: Medications to take at Discharge Citalopram [Celexa] 20 mg PO DAILY 05/19/14 cholecalciferol (vitamin D3) 1,000 unit tablet 1,000 unit PO QDAY 07/06/17 nebivolol 5 mg tablet 5 mg PO DAILY #90 tab 12/06/17 flecainide 100 mg tablet 100 mg PO BID #60 tab 12/27/17 Rivaroxaban [Xarelto] 20 mg PO QHS 07/20/18 Primary Care Physician: Rui Rea MD [Primary Care Provider] - Please follow up with your Primary Care Physician in: 3-5 days Please Follow Up With: Reynaldo Thapa MD - Or PA/INVESTMENT ANALYST When: 1-2 weeks Disposition: Home Minutes spent on discharge:: 35 Patient Condition:: Stable Medical Necessity - Tobacco Use Smoking Status: Never smoker Tobacco Use: Non-smoker Meaningful Use Info Meaningful Use Diagnoses (Choose all that apply): None applicable Code Visit OBSV E&M: 15341 Observation care discharge
[2018-07-21] MEDS: Flecainide 100 MG Tablet PO (08:58)
[2018-07-21] MEDS: Citalopram 20 MG Tablet PO (08:58)
[2018-07-21 09:00] VITALS: BP 140/90; PULSE 63; RESP 16; TEMP 36.8; O2SAT 96
--- NOTE | 2018-07-21 09:21 | DS.PCM_ITS ---
Discharge Date and Diagnosis - Problem List Patient Problems: Active and Suspected Problems (Last Reviewed 01/08/18 @ 11:25 by Reynaldo Thapa MD) Chest pain (Acute) Date of Admission: 07/20/18 Date of Discharge: 07/21/18 - Primary Discharge Diagnosis Active and Suspected Problems (Last Reviewed 01/08/18 @ 11:25 by Reynaldo Thapa MD) Chest pain (Acute) - Secondary Discharge Diagnosis Chronic Problems (Last Reviewed 01/08/18 @ 11:25 by Reynaldo Thapa MD) Family history of cardiovascular disease (Chronic) brother of an [place] and mother at 69 YOA with CVD HTN (hypertension) (Chronic) HLD (hyperlipidemia) (Chronic) Paroxysmal atrial fibrillation (Chronic) IRON (obstructive sleep apnea) (Chronic) not compliant with CPAP. Family history of diabetes mellitus (Chronic) son hs DM History of detached retina repair (Chronic) Hospital Course and Treatment Imaging Results: CXR IMPRESSION: Stable, nonacute portable x-ray examination of the chest. Consults: None Operations: None Procedures: None Summary of Care Provided: Per HPI: The patient is a 73 year old F with past medical history of hypertension, hyperlipidemia, IRON not on CPAP who comes in with complaints of lower substernal and epigastric pain that started on the day of admission. Pain is described as sharp, radiates to the left parasternal region, lasts for a few seconds and goes away. This felt just like when she had atrial fibrillation. And she got worried and decided to come to the emergency department. She denies any palpitations or dizziness or shortness of breath or PND orthopnea. In the ED, her vitals showed the patient 90 9.0F, heart rate 63, blood pressure 158/83, respiratory rate 18, SPO2 is 98% on room air. Admitting blood work showed unremarkable CBC D, BMP was also unremarkable. Chest X-ray shows no acute cardio-pulmonary process. EKG shows normal sinus rhythm, no acute ST changes. Hospital Course: 1. Chest pain/A. [id number]-old female with a history of hypertension hyperlipidemia presenting with lower substernal and epigastric pain. She had started on the day of admission. And was not related to any activity. She says that she is completely chest pain-free now and this was very different than the pain that caused her to have a stress test in May of this year. That stress test was normal and she had an echo in January which was also normal. She denies any shortness of breath, lightheadedness, or dizziness today. She does describe herself as an anxious person and states that her best friend in [facility] just from a heart attack over the last several days and this could possibly be related to that. Her EKG was unremarkable, her telemetry overnight was normal, and all 3 of her troponins were negative. I discussed w charisse her the possibility of going home today and following up with cardiology as an outpatient and she felt that would be okay. I also explained that if she were to have chest pain or get short of breath or have difficulty with ambulation that she can come back to the hospital for further evaluation. We will continue all of her home medications at this time, and she can follow-up with cardiology. 2. Her other medical diagnoses were evaluated in her home medications were continued where appropriate Patient Problems: Active and Suspected Problems (Last Reviewed 01/08/18 @ 11:25 by Reynaldo Thapa MD) Chest pain (Acute) - Physical Exam General: Alert, Oriented x3, Cooperative, No apparent distress HEENT: Atraumatic, PERRLA, EOMI, Normocephalic Oral: Moist Mucosa Neck: Supple, No JVD Lungs: Clear to auscultation, Normal air movement, No rhonchi, No wheeze, No rales Cardiovascular: Regular rate, Regular Rhythm, Normal S1, Normal S2, No murmurs Abdomen: Soft, Non Tender, Non-Distended, No Hepato-splenomegaly Extremities: No edema, Capillary Refill Less than 3 Seconds Skin: No rashes, No breakdown Neurological: Neuro grossly intact, Sensory exam intact to light touch and pain Psych/Mental Status: Normal Affect, Appropriate Vital Signs Temp Pulse Resp BP Pulse Ox 97.9 F 55 L 14 135/69 H 96 07/21/18 03:09 07/21/18 06:56 07/21/18 03:09 07/21/18 03:09 07/21/18 03:09 Oxygen Flow Rate (L/min) 2 Oxygen Delivery Method Room Air Weight: 215 lb 9.793 oz Body Mass Index (BMI) 36.6 Intake and Output for Last 24 Hours 07/19/18 07/20/18 07/21/18 23:59 23:59 23:59 Intake Total 733 / 733 497 / 497 Balance 733 / 733 497 / 497 Laboratory Tests Past 24 Hrs 07/20/18 07/20/18 07/20/18 14:30 14:30 18:55 WBC 8.5 RBC 4.74 Hgb 14.2 Hct 41.3 MCV 87.1 MCH 30.0 MCHC 34.4 RDW 13.2 RDW Differential 42.3 Plt Count 213 MPV 9.5 Immature Gran % (Auto) 0.500 Neut % (Auto) 67.6 Lymph % (Auto) 18.6 L [place] % (Auto) 10.0 Eos % (Auto) 3.2 Baso % (Auto) 0.1 Absolute Neuts (auto) 5.7 Absolute Lymphs (auto) 1.58 Total Counted Not Reportable Sodium 137 Potassium 3.7 Chloride 105 Carbon Dioxide 25.0 Anion Gap 7 BUN 18 Creatinine 1.05 H Estim Creat Clear Calc 42.44 Est GFR (MDRD) Af Amer 66 Est GFR (MDRD) Non-Af 55 L BUN/Creatinine Ratio 17.1 Glucose 116 H Calcium 9.6 Troponin I < 0.015 < 0.015 Lipase 96 07/20/18 07/21/18 22:25 05:25 WBC RBC Hgb Hct MCV MCH MCHC RDW RDW Differential Plt Count MPV Immature Gran % (Auto) Neut % (Auto) Lymph % (Auto) [place] % (Auto) Eos % (Auto) Baso % (Auto) Absolute Neuts (auto) Absolute Lymphs (auto) Total Counted Sodium 141 Potassium 3.7 Chloride 108 H Carbon Dioxide 26.0 Anion Gap 7 BUN 13 Creatinine 0.85 Estim Creat Clear Calc 52.42 Est GFR (MDRD) Af Amer 85 Est GFR (MDRD) Non-Af 70 BUN/Creatinine Ratio 15.3 Glucose 108 H Calcium 9.1 Troponin I < 0.015 Lipase Discharge Activity: Return to Normal Activity, No Restrictions Call your doctor if you observe: Fever of 101 or Higher, Shortness of breath, Dizziness, Fainting spells, Swelling in the ankles, Chest pain, Increased palpitations (irregular heartbeat) Home Medications: Medications to take at Discharge Citalopram [Celexa] 20 mg PO DAILY 05/19/14 cholecalciferol (vitamin D3) 1,000 unit tablet 1,000 unit PO QDAY 07/06/17 nebivolol 5 mg tablet 5 mg PO DAILY #90 tab 12/06/17 flecainide 100 mg tablet 100 mg PO BID #60 tab 12/27/17 Rivaroxaban [Xarelto] 20 mg PO QHS 07/20/18 Primary Care Physician: Rui Rea MD [Primary Care Provider] - Please follow up with your Primary Care Physician in: 3-5 days Please Follow Up With: Reynaldo Thapa MD - Or PA/OUTSIDE MACHINIST SUPERVISOR When: 1-2 weeks Disposition: Home Minutes spent on discharge:: 35 Patient Condition:: Stable Medical Necessity - Tobacco Use Smoking Status: Never smoker Tobacco Use: Non-smoker Meaningful Use Info Meaningful Use Diagnoses (Choose all that apply): None applicable Code Visit OBSV E&M: 56460 Observation care discharge
== END 2018-07-21 08:34 | disposition home or self-care (01) ==
LOC: ED 15:38 → PCU 19:54
PROVIDERS: Admitting Provider Internal Medicine; Emergency Provider Emergency Medicine; Family Provider Family Medicine; PCP Family Medicine; Referring Provider Internal Medicine; Visit Provider Family Medicine
DX: R07.89 Other chest pain (principal); I10 Essential (primary) hypertension; E78.5 Hyperlipidemia, unspecified; I48.0 Paroxysmal atrial fibrillation; G47.33 Obstructive sleep apnea (adult) (pediatric); Z79.01 Long term (current) use of anticoagulants; Z79.899 Other long term (current) drug therapy; F41.9 Anxiety disorder, unspecified; F32.9 Major depressive disorder, single episode, unspecified
CPT/HCPCS: 36415; 71045; 80048; 83690; 84484; 85025; 92610; 93005; 96361; 96365; 96372; 99218; 99284; J7030; G0378

== ENCOUNTER → 2018-07-29 08:04 | Outpatient (CLI) | payer MEDICARE, SELFPAY ==
[2018-05-08 10:26] VITALS: BMI 37.0
[2018-07-20 18:39] VITALS: BMI 36.6
--- NOTE | 2018-07-29 08:07 | BI_ITS ---
MAMMOGRAPHY - BILATERAL SCREENING REASON FOR EXAM: Female, 73 years old. Routine annual screening examination. PERTINENT HISTORY: Sister with breast cancer. TECHNIQUE: Digital bilateral breast olga lidia (3D mammographic acquisition) in the CC and MLO projections. 2-D mediolateral oblique (MLO) and craniocaudad (CC) views of both breasts were obtained. CAD: Full Field Digital Mammography with Computer Added Detection was performed. COMPARISON: Comparison is made with prior study dated November 01, 2016 and August 26, 2015. FINDINGS: Breast Composition: The breasts are almost entirely fatty. There are no dominant masses or suspicious calcifications. Stable small bilateral axillary lymph nodes. No other significant abnormalities are identified. There has been no significant change since the prior study. BI/SCREEN MAMM (CAD) W/OLGA LIDIA BILAT IMPRESSION: Stable bilateral screening mammogram. Yearly follow-up mammogram recommended. (A) ASSESSMENT CATEGORY: BIRADS Category 2: Benign. A letter regarding these results will be sent to the patient by the facility within 30 days. Approximately 10% of breast cancers are not detected by mammography. A normal mammogram should not delay biopsy of a clinically suspicious abnormality. [id number] Electronically Signed: Nacho Sierra, at 9:46 EDT , Service support ,
[2018-07-29 09:06] LABS: Absolute Lymphocyte Count 1.84 X10^3/ul (0.83-4.51); Basophil# 0.03 X10^3/uL; Basophil% 0.3 % (0-1); Eosinophil# 0.29 X10^3/uL; Eosinophils% 3.3 % (0-5); Hematocrit 42.9 % (37-47); Hemoglobin 14.4 g/dl (12.0-15.0); Lymphocyte # 1.84 X10^3/ul (4.0); Lymphocyte % 21.1 % (19-41); Mean Corp Hgb Conc 33.6 g/gl (32-36); Mean Corpuscular Hgb 29.8 pg (27.0-32.0); Mean Corpuscular Volume 88.6 fL (81-99); Mean Platelet Vol. 9.1 fl (6.2-12.0); Monocyte% 5.7 % (0-10); Neutrophil % 69.1 % (47-70); POSITIVE COUNT NO; POSITIVE DIFFERENTIAL NO; POSITIVE MORPHOLOGY NO; Platelet Count 187 K/mm3 (150-450); RBC Distribution Width CV 13.3 % (11.6-14.6); RBC Distribution Width SD 43.4 fl (35.1-43.9); Red Blood Count 4.84 M/mm3 (4.2-5.4); White Blood Count 8.7 K/mm3 (4.4-11.0)
[2018-07-29 09:27] LABS: AST(SGOT) 15 U/L (15-37); Alanine Aminotransfer ALT/SGPT 26 U/L (13-56); Albumin, Serum 3.6 g/dL (3.2-5.0); Alkaline Phosphatase 87 U/L (45-117); Anion Gap 9 (5-15); BUN 18 mg/dL (7-18); BUN/Creat Ratio 17.1 RATIO (10-20); Calcium,Total 9.4 mg/dL (8.5-10.1); Chloride 107 mmol/L (98-107); Cholesterol 174 mg/dL (200); Creatinine, Serum 1.05 mg/dL (0.55-1.02); EST Glomerular Filtration Rate 55 mL/min (>60); Est Glom Filt Rate - Afr Amer 66 mL/min (>60); Globulin 3.6 g/dL (2.2-4.2); Glucose 137 mg/dL (74-106); High Density Lipoprotein 46 mg/dL; Magnesium 2.4 mg/dL (1.6-2.6); Potassium 4.6 mmol/L (3.5-5.1); Protein, Total 7.2 g/dL (6.4-8.2); Sodium Level 142 mmol/L (136-145); T4 Free Direct 0.94 ng/dL (0.76-1.46); Thyroid Stim Hormone (TSH) 2.18 uIU/mL (0.358-3.74); Triglycerides 144 mg/dL; Very Low Density Lipoprotein 29 mg/dL (5-40)
== END ==
LOC: OPBI 08:05 → PAVLAB 08:30
PROVIDERS: Family Provider Family Medicine; PCP Family Medicine; Referring Provider Family Medicine; Visit Provider Family Medicine
DX: R73.01 Impaired fasting glucose (principal); I48.91 Unspecified atrial fibrillation; I10 Essential (primary) hypertension; R61 Generalized hyperhidrosis; Z12.31 Encounter for screening mammogram for malignant neoplasm of breast; Z80.3 Family history of malignant neoplasm of breast
CPT/HCPCS: 36415; 77063; 77067; 80053; 80061; 83735; 84439; 84443; 85025

== ENCOUNTER → 2018-08-19 17:16 | Outpatient (CLI) | payer MEDICARE, SELFPAY ==
[2018-08-19 13:28] VITALS: BMI 37.8
== END ==
PROVIDERS: Family Provider Family Medicine; PCP Family Medicine; Referring Provider Nurse Practitioner Women's Health; Visit Provider Nurse Practitioner Women's Health
DX: N89.8 Other specified noninflammatory disorders of vagina (principal)
CPT/HCPCS: 87070; 87205

== ENCOUNTER → 2019-01-21 13:08 | Outpatient (CLI) | payer MEDICARE, SELFPAY ==
[2018-12-23 14:59] VITALS: BMI 37.8
--- NOTE | 2019-01-21 13:19 | BD_ITS ---
STUDY: DUAL ENERGY X-RAY ABSORPTIOMETRY / DXA REASON FOR EXAM: Female, 73 years old. The patient is postmenopausal. Loss of height. TECHNIQUE: Bone Mineral Density (BMD) measurements of lumbar spine and bilateral hips were obtained. COMPARISON: None. FINDINGS: Lumbar Spine (L1-L4): g/cm2 (1.346) / T-score (1.4) / Z-score (3.1) Findings are suggestive of normal bone density with a low fracture risk. Left Femur Total: g/cm2 (1.005) / T-score (0.0) / Z-score (1.5) Left Femoral Neck: g/cm2 (0.869) / T-score (-1.2) / Z-score (0.6) Right Femur Total: g/cm2 (0.964) / T-score (-0.4) / Z-score (1.2) Right Femoral Neck: g/cm2 (0.920) / T-score (-0.8) / Z-score (0.9) BD/Dexa Bone Density Study IMPRESSION: The patient is considered osteopenic as outlined below according to World Dylan Organization (WHO) criteria with a low fracture risk. Reference Information: The T-score is the number of standard deviations above or below the standard which is normal for young adults at their peak bone mineral density. The World Health Organization (WHO) interprets the T-scores as follows: Above -1 Normal bone density Between -1 and -2.5 Osteopenia Equal to / or below -2.5 Osteoporosis As a practical clinical guideline, osteopenia may be graded as follows: Mild -1 through -1.5 Moderate -1.6 through -2.0 Severe -2.1 through -2.4 The Z-score is the number of standard deviations above or below age-matched controls. A Z-score of less than -1.5 would be considered abnormal. References: 1. NIH Osteoporosis and Related Bone Diseases http://www.osteo.org 2. International Society for Clinical Densitometry http://www.iscd.org 3. National Osteoporosis Foundation http://www.nof.org Electronically Signed: Nacho Sierra, at 13:58 EST , Service support ,
== END ==
PROVIDERS: Family Provider Family Medicine; PCP Family Medicine; Referring Provider Family Medicine; Visit Provider Family Medicine
DX: Z78.0 Asymptomatic menopausal state (principal)
CPT/HCPCS: 77080

== ENCOUNTER → 2019-04-22 14:23 | Outpatient (CLI) | payer MEDICARE, SELFPAY ==
[2019-04-22 13:18] VITALS: BMI 37.2
[2019-04-22 15:38] LABS: Anion Gap 5 (5-15); BUN 17 mg/dL (7-18); BUN/Creat Ratio 18.6 RATIO (10-20); Calcium,Total 9.6 mg/dL (8.5-10.1); Chloride 111 mmol/L (98-107); Creatinine, Serum 0.92 mg/dL (0.55-1.02); EST Glomerular Filtration Rate 64 mL/min (>60); Est Glom Filt Rate - Afr Amer 78 mL/min (>60); Glucose 130 mg/dL (74-106); Potassium 4.5 mmol/L (3.5-5.1); Sodium Level 141 mmol/L (136-145)
== END ==
PROVIDERS: PCP Family Medicine; Referring Provider Internal Medicine Cardiovascular Disease; Visit Provider Internal Medicine Cardiovascular Disease
DX: I48.0 Paroxysmal atrial fibrillation (principal)
CPT/HCPCS: 36415; 80048

== ENCOUNTER 2019-04-28 11:00 | Day surgery (SDC) | payer MEDICARE, SELFPAY ==
[2019-04-22 13:18] VITALS: BMI 37.2
[2019-04-25 13:13] VITALS: BMI 37.2
--- NOTE | 2019-04-28 12:48 | CARDIOVERS ---
Cardioversion Cardioversion: 74-year-old lady with a history of chronic persistent symptomatic atrial fibrillation. Patient is here for DC cardioversion. Patient was brought to cardiac catheterization lab in the postabsorptive nonsedated state. Patient was seen by Dr. Ceja of the critical care division. Informed consent was obtained. Anterior-posterior pads were applied. The patient was administered 40 mg of intravenous propofol. 200 J of synchronized DC cardioversion energy were applied. The patient did not revert back into sinus rhythm. 300 J of synchronized biphasic DC cardioversion energy were applied with prompt reversal to sinus rhythm. Patient tolerated the procedure well. Conclusion: Successful DC cardioversion to sinus rhythm. Continue current medical therapy.
--- NOTE | 2019-04-28 13:02 | PCM.OP.PRO ---
Procedure Report Date of Procedure: 04/28/19 CONSCIOUS SEDATION REPORT DATE OF SERVICE: April 28, 2019 BRIEF HISTORY OF PRESENT ILLNESS: The patient is a 74-year-old female who presented to [facility] for an elective outpatient cardioversion due to underlying atrial fibrillation. The patient did undergo a previous cardioversion in December 2017, during which time, 40 mg of propofol was utilized to achieve an appropriate level of sedation. The patient has no history of anesthetic adverse reactions. Her last surface echocardiogram revealed an ejection fraction of approximately 60%. She is currently anticoagulated on Xarelto. She does have a known history of obstructive sleep apnea, for which she is noncompliant with the use of nocturnal CPAP therapy. PHYSICAL EXAMINATION: VITAL SIGNS: Reviewed and were acceptable. GENERAL: The patient is an obese female, in no apparent distress, speaking in full sentences. HEENT: Normocephalic, atraumatic. Mucous membranes are moist and pink. Good mouth opening noted. Trachea is midline. CHEST: S1, S2 irregularly irregular. No murmurs, rubs or gallops were noted. LUNGS: Clear to auscultation bilaterally without appreciable wheezes, rales or rhonchi. ABDOMEN: Soft, nontender, nondistended. Positive bowel sounds. EXTREMITIES: There is no clubbing, cyanosis or edema. ASA Class: II DESCRIPTION OF PROCEDURE: After confirmation of informed consent, the patient's anesthesia plan was reviewed in detail. Propofol was chosen. Risks and benefits were reviewed and the patient agreed to proceed. At 1236, the patient was given 40 mg of propofol. The patient achieved an appropriate level of sedation and was given a 200 joule synchronized cardioversion by Dr. Thapa at the bedside. This was initially unsuccessful. Therefore, a second 300 J synchronized cardioversion was attempted. This was successful in achieving normal sinus rhythm. The patient was monitored until 1246, at which time she reached her baseline mental status and function. The patient tolerated the procedure well. COMPLICATIONS: None ESTIMATED BLOOD LOSS: None RECOMMENDATIONS: Okay to recover in usual fashion. 9xxxx: Other Procedure See Report - [id number]
== END 2019-04-28 13:50 | disposition home or self-care (01) ==
LOC: CLSP 11:00
PROVIDERS: PCP Family Medicine; Referring Provider Internal Medicine Cardiovascular Disease; Visit Provider Internal Medicine Cardiovascular Disease
DX: I48.19 Other persistent atrial fibrillation (principal); G47.33 Obstructive sleep apnea (adult) (pediatric); I10 Essential (primary) hypertension; E78.5 Hyperlipidemia, unspecified; I48.0 Paroxysmal atrial fibrillation; F41.9 Anxiety disorder, unspecified; F32.9 Major depressive disorder, single episode, unspecified; K21.9 Gastro-esophageal reflux disease without esophagitis; Z79.01 Long term (current) use of anticoagulants; Z91.19 Patient's noncompliance with other medical treatment and regimen; Z79.899 Other long term (current) drug therapy
CPT/HCPCS: 92960; 93005; J7040

== ENCOUNTER → 2019-05-07 06:40 | Outpatient (CLI) | payer MEDICARE, SELFPAY ==
[2019-04-25 13:13] VITALS: BMI 37.2
--- NOTE | 2019-05-07 06:42 | CT_ITS ---
STUDY: CT ABDOMEN AND PELVIS WITH AND WITHOUT CONTRAST REASON FOR EXAM: Female, 74 years old. Gross hematuria, dark urine, no urinary problems or abdomen pain. Prior cholecystectomy. Delayed images included. RADIATION DOSAGE (If Supplied By Facility): CTDIvol = ( 26.7 ) mGy, DLP = ( 3431.81 ) mGycm TECHNIQUE: Transaxial images were obtained from the dome of the diaphragm to the symphysis pubis without oral contrast. IV 100mL Isovue-300 was administered. Sagittal and coronal images were reconstructed. Individualized dose optimization techniques were used for this CT. COMPARISON: None. FINDINGS: Mild increased linear markings at the right lung base suggestive of atelectasis and/or scarring. The visualized portions of the heart are within normal limits. Normal liver. There are surgical clips in the gallbladder fossa consistent with a prior cholecystectomy. Normal spleen. There is diffuse atrophy of the pancreas. Normal bilateral adrenal glands. Normal right kidney. Normal left kidney. Normal visualized stomach. Normal small intestine. There are scattered colonic diverticula consistent with diverticulosis. The appendix is visualized and appears normal. There is diffuse atherosclerotic calcification of the abdominal aorta, without a demonstrated aneurysm. Normal inferior vena cava. There is borderline retroperitoneal lymphadenopathy with enlarged nodes no greater than 10mm in the short axis diameter. Normal urinary bladder. There is a small umbilical hernia containing fat. Small bilateral inguinal hernias containing fat. There are degenerative changes of the visualized lumbar spine. CT/CT Abd/Pelvis W/WO Contrast IMPRESSION: Scattered sigmoid diverticula. Small bilateral inguinal hernias containing fat. Electronically Signed: Nacho Sierra, at 8:29 EDT , Service support ,
== END ==
PROVIDERS: PCP Family Medicine; Referring Provider Urology; Visit Provider Urology
DX: R31.0 Gross hematuria (principal)
CPT/HCPCS: 74178; Q9967

== ENCOUNTER → 2019-07-11 09:40 | Outpatient (CLI) | payer MEDICARE, SELFPAY ==
[2019-04-25 13:13] VITALS: BMI 37.2
[2019-07-11 10:52] LABS: Absolute Lymphocyte Count 1.78 X10^3/uL (0.83-4.51); Absolute Neutrophil Count 5.3 X10^3/uL (2.0-7.7); Basophil# 0.04 X10^3/uL; Basophil% 0.5 % (0-1); Eosinophil# 0.11 X10^3/uL; Eosinophils% 1.4 % (0-5); Hemoglobin 15.3 g/dL (12.0-15.0); Lymphocyte # 1.78 X10^3/ul (4.0); Lymphocyte % 22.9 % (19-41); Mean Corp Hgb Conc 32.6 g/dL (32-36); Mean Corpuscular Hgb 29.9 pg (27.0-32.0); Mean Corpuscular Volume 91.8 fL (81-99); Mean Platelet Vol. 9.8 fl (6.2-12.0); Monocyte# 0.46 X10^3/uL; Monocyte% 5.9 % (0-10); NRBC Flagged by Analyzer 0 % (0-5); Neutrophil # 5.33 X10^3/uL (2.7-7.7); Neutrophil % 68.7 % (47-70); Platelet Count 221 K/mm3 (150-450); RBC Distribution Width CV 12.6 % (11.6-14.6); RBC Distribution Width SD 42.2 fl (35.1-43.9); Red Blood Count 5.12 M/mm3 (4.2-5.4); White Blood Count 7.8 K/mm3 (4.4-11.0)
[2019-07-11 11:21] LABS: Anion Gap 1 (5-15); BUN 18 mg/dL (7-18); BUN/Creat Ratio 16.7 RATIO (10-20); Calcium,Total 10.1 mg/dL (8.5-10.1); Chloride 108 mmol/L (98-107); Creatinine, Serum 1.08 mg/dL (0.55-1.02); EST Glomerular Filtration Rate 53 mL/min (>60); Est Glom Filt Rate - Afr Amer 64 mL/min (>60); Free T3 2.7 pg/mL (2.18-3.98); Glucose 138 mg/dL (74-106); Magnesium 2.4 mg/dL (1.6-2.6); Potassium 4.2 mmol/L (3.5-5.1); Sodium Level 139 mmol/L (136-145); T4 Free Direct 0.83 ng/dL (0.76-1.46); Thyroid Stim Hormone (TSH) 2.34 uIU/mL (0.358-3.74)
== END ==
PROVIDERS: PCP Family Medicine; Referring Provider Physician Assistant Medical; Visit Provider Physician Assistant Medical
DX: I48.0 Paroxysmal atrial fibrillation (principal)
CPT/HCPCS: 36415; 80048; 83735; 84439; 84443; 84481; 85025

== ENCOUNTER 2019-07-21 09:21 | Day surgery (SDC) | payer MEDICARE, SELFPAY ==
[2019-04-25 13:13] VITALS: BMI 37.2
--- NOTE | 2019-07-18 09:12 | HP.PCM_ITS ---
History and Physical Date of Admission: 07/21/19 History of Present Illness SAVANNA MCDONOUGH, is a 74 F who is here today for a cardioversion. She has a history of hypertension, atrial fibrillation with a cardioversion in January 2018, April 2019 and hyperlipidemia. Patient called our office 2 weeks ago stating that she felt like she had retu rned to atrial fibrillation. She notes that she is tired and is aware of her rhythm. She has been compliant with her medications. EKG on July 10 confirmed that she was back in atrial fibrillation with a heart rate of 90. Intake Intake Visit Reasons: Amb Documentation Allergies codeine Allergy (Verified 04/22/19 13:18) Other loratadine Allergy (Verified 04/22/19 13:18) Other meloxicam Allergy (Verified 04/22/19 13:18) Other dronedarone [From Multaq] Adverse Reaction (Verified 04/22/19 13:18) GI upset Penicillins Adverse Reaction (Verified 04/22/19 13:18) nausea and vomiting sulfamethoxazole [From Bactrim] Adverse Reaction (Verified 04/22/19 13:18) Nausea/Vom/Diarrhea trimethoprim [From Bactrim] Adverse Reaction (Verified 04/22/19 13:18) Nausea/Vom/Diarrhea PFSH Medical History HTN (hypertension) (Chronic) HLD (hyperlipidemia) (Chronic) Paroxysmal atrial fibrillation (Chronic) IRON (obstructive sleep apnea) (Chronic) Anxiety (Chronic) Back problem (Chronic) Depression (Chronic) Dysphagia (Chronic) GERD (gastroesophageal reflux disease) (Chronic) Hypokalemia (Chronic) Surgical History History of cardioversion (Chronic 04/28/19) History of left heart catheterization (Acute 07/29/08) History of cholecystectomy (Chronic ~1977) History of tubal ligation (Chronic ~1981) Family History Father Cancer Prostate cancer Mother Myocardial infarction Arthritis Sister Breast cancer Brother Diabetes CHF (congestive heart failure) Myocardial infarction Son Diabetes Social History Smoking Status: Never smoker alcohol intake: never substance use type: does not use caffeine: No what type of physical activity do you participate in: walking frequency: 5-6 times per week seatbelt use: always do you feel safe at home: Yes additional social history: - retired ROS Const Const: Negative for fatigue, weakness, headache(s), frequent falls, night sweats, daytime sleepiness or excessive sweating Eyes Eyes: Negative for blind spots, loss of peripheral vision, transient loss of vision, blurry vision or double vision ENT ENT: Negative for headache(s) or balance problems Cardio Chest Pain: No Palpitations: No Edema: None Muscle aches with walking: None Resp Respiratory: Negative for SOB with activity, SOB at rest, SOB orthopnea\SOB lying down, Cough or paroxysmal nocturnal dyspnea GI GI: Negative nausea, vomiting, heartburn, bright, red blood in stools or black,tarry stools : Negative for hematuria Musc Musc: Negative for muscle aches/ myalgia, muscle weakness, joint pain or balance problems Skin Skin: Negative non-healing lesions, rash or unusual bruising Neuro Neuro: Negative for frequent falls, headache(s), weakness, blurry vision or double vision Eric Hematologic/Lymphatic: Negative for easy bleeding or easy bruising Endo Endo: Negative for fatigue or excessive sweating Psych Psych: Negative for anxiety or depression Allergy Allergy/Immunology: Negative for rash Cardiology Exam Const Appearance: cooperative, healthy appearing, no acute distress, well developed and well groomed Nutritional Appearance: average body habitus and well nourished Orientation: alert, awake and oriented x3 Head Head: normal to inspection, normocephalic and atraumatic Ears: hearing grossly normal bilaterally and external ears normal Nose: external nose normal, nares normal, nasal mucous membranes and turbinates normal, septum normal, no nasal discharge Face and Sinus: face symmetric Mouth: oral mucosae normal, tongue normal, oropharynx normal and moist mucous membranes Teeth and gingiva: dentition normal Throat: posterior oropharynx normal, tonsils normal and uvula midline Eyes General: appearance normal, both eyes and all related structures Eyelids: eyelids normal Conjunctivae: conjunctivae normal Pupils: PERRL, normal by confrontation and accommodation normal EOM: EOM intact bilaterally Neck Neck: normal visual inspection, trachea midline and no JVD JVD: +5 Carotids: normal carotid upstroke and bounding pulses Chest Chest inspection: normal inspection of the chest, symmetric chest movement and normal respiratory effort Auscultation: Bilateral: Clear to Auscultation Cardio Palpation: normal PMI Rate: regular rate Rhythm: irregular rhythm Heart sounds: S1 normal, S2 normal and normal, physiologic split S2; negative rub, gallop or murmur GI GI: normal to inspection, soft, no hepatosplenomegaly and bowel sounds present Neuro General: alert, awake, oriented x3, gait normal, moves all extremities and no focal sensory deficit Skin Skin: no rashes or lesions noted Extremities Pulses: Normal: Right Femoral Pulse, Left Femoral Pulse, Right Dorsalis Pedis Pulse, Left Dorsalis Pedis Pulse, Right Posterior Tibial Pulse, Left Posterior Tibial Pulse, Right Radial Pulse, Left Radial Pulse Lower Extremity Edema: None: Bilateral Musculoskel Musculoskeletal: No joint tenderness Psych Psychological: normal affect Assessment & Plan 1. Paroxysmal atrial fibrillation I48.0 2. Essential hypertension I10 3. Hyperlipidemia, unspecified hyperlipidemia type E78.5 Patient will undergo a cardioversion today. She will return next week to the office for an EKG. She does have a follow-up appointment with us at the end of the month.
[2019-07-18 12:42] VITALS: BMI 37.0
--- NOTE | 2019-07-21 11:11 | PCM.OP.PRO ---
Procedure Report Date of Procedure: 07/21/19 Elective DC cardioversion [[age]-year-old [lady ]with a history of chronic persistent atrial fibrillation. [She ]was brought to the cardiac catheterization lab in the postabsorptive nonsedated state and was seen by [Dr. Enrique Ceja] of the critical care division. AP pads were applied and the patient was administered[ 40 mg of intravenous propofol ]after informed consent was obtained. 200 J of biphasic DC cardioversion energy were applied with prompt reversal to sinus rhythm. Patient was noted to be in sinus bradycardia. [She] tolerated the procedure well. X Conclusion: Successful DC cardioversion from [atrial fibrillation] to sinus rhythm. Recommendations: Continue other medications including [Xarelto]. Follow-up in my office in a week.
--- NOTE | 2019-07-21 12:21 | PRO.PCM_ITS ---
Procedure Report Date of Procedure: 07/21/19 CONSCIOUS SEDATION REPORT DATE OF SERVICE: July 21, 2019 BRIEF HISTORY OF PRESENT ILLNESS: The patient is a 74-year-old female who presented to [facility] for an elective outpatient cardioversion due to underlying atrial fibrillation. The patient has undergone two prior cardioversions, during which time, propofol was utilized for sedation. The patient denies any previous anesthetic complications. Her last surface echocardiogram revealed an ejection fraction of approximately 60%. She is currently anticoagulated on Xarelto. She does have a known history of obstructive sleep apnea for which she is noncompliant with the use of nocturnal CPAP therapy. PHYSICAL EXAMINATION: VITAL SIGNS: Reviewed and were acceptable. GENERAL: The patient is an obese female, in no apparent distress, speaking in full sentences. HEENT: Normocephalic, atraumatic. Mucous membranes are moist and pink. Good mouth opening noted. Trachea is midline. MP III CHEST: S1, S2 irregularly irregular. No murmurs, rubs or gallops were noted. LUNGS: Clear to auscultation bilaterally without appreciable wheezes, rales or rhonchi. ABDOMEN: Soft, nontender, nondistended. Positive bowel sounds. EXTREMITIES: There is no clubbing, cyanosis or edema. ASA Class: II DESCRIPTION OF PROCEDURE: After confirmation of informed consent, the patient's anesthesia plan was reviewed in detail. Propofol was chosen. Risks and benefits were reviewed and the patient agreed to proceed. At 1100, the patient was given 40 mg of propofol. The patient achieved an appropriate level of sedation and was given a 200 joule synchronized cardioversion by Dr. Thapa at the bedside. This was successful in achieving normal sinus rhythm. The patient was monitored until 1110, at which time she reached her baseline mental status and function. The patient tolerated the procedure well. COMPLICATIONS: None ESTIMATED BLOOD LOSS: None RECOMMENDATIONS: Okay to recover in usual fashion. 9xxxx: Other Procedure See Report - [id number]
== END 2019-07-21 12:15 | disposition home or self-care (01) ==
LOC: CLSP 09:22
PROVIDERS: PCP Family Medicine; Referring Provider Internal Medicine Cardiovascular Disease; Visit Provider Internal Medicine Cardiovascular Disease
DX: I48.19 Other persistent atrial fibrillation (principal); I10 Essential (primary) hypertension; E78.5 Hyperlipidemia, unspecified; G47.33 Obstructive sleep apnea (adult) (pediatric); K21.9 Gastro-esophageal reflux disease without esophagitis
CPT/HCPCS: 92960; 93005; J7040

== ENCOUNTER → 2019-07-23 11:19 | Outpatient (CLI) | payer MEDICARE, SELFPAY ==
[2019-04-25 13:13] VITALS: BMI 37.2
[2019-07-18 12:42] VITALS: BMI 37.0
--- NOTE | 2019-07-23 11:30 | US_ITS ---
STUDY: RENAL ULTRASOUND - COMPLETE REASON FOR EXAM: Female, 74 years old. HEMATURIA, KIDNEY STONES TECHNIQUE: Ultrasound evaluation of the kidneys was performed with real-time and static almodovar-scale imaging. COMPARISON: None. FINDINGS: RIGHT KIDNEY: Normal location of the right kidney, which is normal in size. The right kidney measures 11.2 cm x 5.1 cm x 4.1 cm. There is a normal cortex of the right kidney. The renal cortex measures 1.5 cm. There is no right renal mass or cyst. There are no right renal calculi. There is no right hydronephrosis. DISTAL RIGHT URETER: There is non-visualization of the distal right ureter. There is no demonstrated right ureterovesical junction calculus. There is a visualized right ureteral jet. LEFT KIDNEY: Normal location of the left kidney, which is normal in size. The left kidney measures 11 cm x 5.3 cm x 4.0 cm. There is a normal cortex of the left kidney. The renal cortex measures 2.2 cm. There is no left renal mass or cyst. There are no left renal calculi. There is no left hydronephrosis. DISTAL LEFT URETER: There is non-visualization of the distal left ureter. There is no demonstrated left ureterovesical junction calculus. There is a visualized left ureteral jet. BLADDER: The distended urinary bladder has a volume of 132 ml. There is a normal wall thickness of the distended urinary bladder. There is no demonstrated mass within the urinary bladder. There are no demonstrated bladder calculi. US/Kidney and Bladder IMPRESSION: Normal ultrasound of the kidneys and urinary bladder. Electronically Signed: Nacho Sierra, at 15:36 EDT , Service support ,
== END ==
PROVIDERS: PCP Family Medicine; Referring Provider Urology; Visit Provider Urology
DX: N20.0 Calculus of kidney (principal); R31.9 Hematuria, unspecified
CPT/HCPCS: 76770

== ENCOUNTER → 2019-11-05 13:24 | Outpatient (CLI) | payer MEDICARE, SELFPAY ==
[2019-11-05 13:24] VITALS: BMI 37.2
--- NOTE | 2019-11-05 13:26 | RAD_ITS ---
STUDY: X-RAY - RIGHT KNEE REASON FOR EXAM: Female, 74 years old. Right knee pain for several days TECHNIQUE: 4 view(s) of the knee. COMPARISON: Comparison is made with prior study dated 05/19/2014. FINDINGS: Normal visualized distal femur. Normal visualized proximal tibia and fibula. Normal proximal tibiofibular articulation. There is mild degenerative arthrosis of the medial femorotibial compartment. Normal lateral femorotibial compartment. There is mild degenerative arthrosis of the patellofemoral articulation. The soft tissue structures are unremarkable. RAD/Knee 4 or More Views IMPRESSION: Degenerative arthrosis. Electronically Signed: Nacho Sierra, at 15:34 EDT , Service support ,
== END ==
PROVIDERS: PCP Family Medicine; Referring Provider Family Medicine; Visit Provider Family Medicine
DX: M25.561 Pain in right knee (principal)
CPT/HCPCS: 73564

== ENCOUNTER → 2020-02-03 12:24 | Outpatient (CLI) | payer MEDICARE, SELFPAY ==
[2020-01-26 08:31] VITALS: BMI 37.9
--- NOTE | 2020-02-03 12:25 | BI_ITS ---
MAMMOGRAPHY - BILATERAL SCREENING REASON FOR EXAM: Female, 74 years old. Routine annual screening examination. PERTINENT HISTORY: Sister with breast cancer. TECHNIQUE: Digital bilateral breast olga lidia (3D mammographic acquisition) in the CC and MLO projections. 2-D mediolateral oblique (MLO) and craniocaudad (CC) views of both breasts were obtained. CAD: Full Field Digital Mammography with Computer Added Detection was performed. COMPARISON: Comparison is made with prior study dated 07/29/2018 and 11/01/2016. FINDINGS: Breast Composition: The breasts are almost entirely fatty. There are no dominant masses or suspicious calcifications. Stable benign-appearing bilateral axillary lymph nodes. No other significant abnormalities are identified. There has been no significant change since the prior study. BI/SCREEN MAMM (CAD) W/OLGA LIDIA BILAT IMPRESSION: Stable bilateral screening mammogram. Yearly follow-up mammogram recommended. (A) ASSESSMENT CATEGORY: BIRADS Category 2: Benign. A letter regarding these results will be sent to the patient by the facility within 30 days. Approximately 10% of breast cancers are not detected by mammography. A normal mammogram should not delay biopsy of a clinically suspicious abnormality. [id number] Electronically Signed: Nacho Sierra, at 14:13 EST , Service support ,
== END ==
PROVIDERS: PCP Family Medicine; Referring Provider Nurse Practitioner Women's Health; Visit Provider Nurse Practitioner Women's Health
DX: Z12.31 Encounter for screening mammogram for malignant neoplasm of breast (principal)
CPT/HCPCS: 77063; 77067

== ENCOUNTER → 2020-04-20 10:14 | Outpatient (CLI) | payer MEDICARE, SELFPAY ==
[2020-01-26 08:31] VITALS: BMI 37.9
[2020-04-20 12:14] LABS: Absolute Neutrophil Count 3.8 X10^3/uL (2.0-7.7); Basophil# 0.02 X10^3/uL; Basophil% 0.3 % (0-1); Eosinophil# 0.06 X10^3/uL; Hematocrit 46.1 % (37-47); Hemoglobin 14.9 g/dL (12.0-15.0); Lymphocyte % 25.8 % (19-41); Mean Corp Hgb Conc 32.3 g/dL (32-36); Mean Corpuscular Hgb 29.3 pg (27.0-32.0); Mean Corpuscular Volume 90.7 fL (81-99); Mean Platelet Vol. 9.7 fl (6.2-12.0); Monocyte# 0.39 X10^3/uL; Monocyte% 6.7 % (0-10); NRBC Flagged by Analyzer 0 % (0-5); Neutrophil # 3.81 X10^3/uL (2.7-7.7); Neutrophil % 65.7 % (47-70); Platelet Count 186 K/mm3 (150-450); RBC Distribution Width CV 12.8 % (11.6-14.6); RBC Distribution Width SD 42.3 fl (35.1-43.9); Red Blood Count 5.08 M/mm3 (4.2-5.4); White Blood Count 5.8 K/mm3 (4.4-11.0)
[2020-04-20 12:38] LABS: ALB/GLOB Ratio 1.1 RATIO (0.9-2.4); AST(SGOT) 22 U/L (15-37); Alanine Aminotransfer ALT/SGPT 30 U/L (13-56); Albumin, Serum 3.8 g/dL (3.2-5.0); Alkaline Phosphatase 98 U/L (45-117); Anion Gap 6 (5-15); BUN 14 mg/dL (7-18); BUN/Creat Ratio 13.6 RATIO (10-20); Calcium,Total 9.5 mg/dL (8.5-10.1); Chloride 108 mmol/L (98-107); Cholesterol 178 mg/dL (200); Creatinine, Serum 1.03 mg/dL (0.55-1.02); EST Glomerular Filtration Rate 56 mL/min (>60); Est Glom Filt Rate - Afr Amer 68 mL/min (>60); Globulin 3.6 g/dL (2.2-4.2); Glucose 124 mg/dL (74-106); High Density Lipoprotein 50 mg/dL; Magnesium 2.4 mg/dL (1.6-2.6); Potassium 4.3 mmol/L (3.5-5.1); Protein, Total 7.4 g/dL (6.4-8.2); Sodium Level 138 mmol/L (136-145); Thyroid Stim Hormone (TSH) 2.02 uIU/mL (0.358-3.74); Triglycerides 154 mg/dL; Very Low Density Lipoprotein 31 mg/dL (5-40)
== END ==
PROVIDERS: PCP Family Medicine; Visit Provider Family Medicine
DX: I48.91 Unspecified atrial fibrillation (principal); I10 Essential (primary) hypertension; E87.6 Hypokalemia
CPT/HCPCS: 36415; 80053; 80061; 83735; 84443; 85025

== ENCOUNTER → 2020-05-31 13:54 | Outpatient (CLI) | payer MEDICARE, SELFPAY ==
[2020-01-26 08:31] VITALS: BMI 37.9
--- NOTE | 2020-05-31 14:01 | CT_ITS ---
STUDY: CT ABDOMEN AND PELVIS WITHOUT CONTRAST REASON FOR EXAM: Female, 75 years old. FLANK PAIN RADIATION DOSAGE (If Supplied By Facility): CTDIvol = ( 20.35 ) mGy, DLP = ( 982.21 ) mGycm TECHNIQUE: Transaxial images were obtained from the dome of the diaphragm to the symphysis pubis without oral contrast, and without intravenous contrast. Sagittal and coronal images were reconstructed. Individualized dose optimization techniques were used for this CT. COMPARISON: 05/07/2019 FINDINGS: The visualized lung bases are unremarkable. The visualized portions of the heart are within normal limits. Normal liver. There are surgical clips in the gallbladder fossa consistent with a prior cholecystectomy. Normal spleen. Normal pancreas. Normal bilateral adrenal glands. Normal right kidney. Normal left kidney. Normal visualized stomach. Normal small intestine. Normal colon. The appendix is visualized and appears normal. Normal abdominal aorta. Normal inferior vena cava. Normal retroperitoneum. Normal urinary bladder. There is a small umbilical hernia containing fat. Normal osseous structures. CT/Abdomen/Pelvis without Cont IMPRESSION: Normal unenhanced CT of the abdomen and pelvis. No renal or ureteral stone. Electronically Signed: Juan Carlos Squires MD at 17:26 EDT Tel , Service support ,
== END ==
PROVIDERS: PCP Family Medicine; Referring Provider Urology; Visit Provider Urology
DX: R10.9 Unspecified abdominal pain (principal); R31.9 Hematuria, unspecified; Z87.442 Personal history of urinary calculi
CPT/HCPCS: 74176

== ENCOUNTER 2020-06-03 15:07 | Outpatient (RCR) | payer MEDICARE, SELFPAY ==
[2020-01-26 08:31] VITALS: BMI 37.9
== END 2020-07-27 23:59 ==
LOC: IMMUN 15:07
PROVIDERS: PCP Family Medicine; Referring Provider Family Medicine; Visit Provider Family Medicine
DX: Z23 Encounter for immunization (principal)
CPT/HCPCS: 0001A; 0002A; 91300

== ENCOUNTER → 2020-06-22 16:27 | Outpatient (CLI) | payer MEDICARE, SELFPAY ==
[2020-06-22 15:40] VITALS: BMI 37.9
[2020-06-22 18:12] LABS: Anion Gap 3 (5-15); BUN 15 mg/dL (7-18); BUN/Creat Ratio 14.9 RATIO (10-20); Calcium,Total 9.9 mg/dL (8.5-10.1); Chloride 105 mmol/L (98-107); Creatinine, Serum 1.01 mg/dL (0.55-1.02); EST Glomerular Filtration Rate 57 mL/min (>60); Est Glom Filt Rate - Afr Amer 69 mL/min (>60); Glucose 100 mg/dL (74-106); Potassium 4.3 mmol/L (3.5-5.1); Sodium Level 139 mmol/L (136-145)
== END ==
PROVIDERS: PCP Family Medicine; Referring Provider Physician Assistant Medical; Visit Provider Physician Assistant Medical
DX: I48.19 Other persistent atrial fibrillation (principal); I10 Essential (primary) hypertension; E78.5 Hyperlipidemia, unspecified; G47.33 Obstructive sleep apnea (adult) (pediatric)
CPT/HCPCS: 36415; 80048

== ENCOUNTER → 2020-08-04 15:01 | Outpatient (CLI) | payer MEDICARE, SELFPAY ==
[2020-06-28 09:55] VITALS: BMI 37.9
== END ==
PROVIDERS: PCP Family Medicine; Visit Provider Otolaryngology Otolaryngology/Facial Plastic Surgery
DX: H92.10 Otorrhea, unspecified ear (principal)
CPT/HCPCS: 87070; 87075; 87205

== ENCOUNTER → 2020-10-05 15:54 | Outpatient (CLI) | payer MEDICARE, SELFPAY ==
[2020-10-05 15:08] VITALS: BMI 37.9
[2020-10-05 16:45] LABS: Hematocrit 41.8 % (37-47); Hemoglobin 13.8 g/dL (12.0-15.0); Mean Corpuscular Hgb 29.8 pg (27.0-32.0); Mean Corpuscular Volume 90.3 fL (81-99); Mean Platelet Vol. 9.6 fl (6.2-12.0); Platelet Count 200 K/mm3 (150-450); RBC Distribution Width CV 13.2 % (11.6-14.6); RBC Distribution Width SD 43.5 fl (35.1-43.9); Red Blood Count 4.63 M/mm3 (4.2-5.4); White Blood Count 7.5 K/mm3 (4.4-11.0)
[2020-10-05 17:42] LABS: BNP,B-Type NATRIURETIC PEPTIDE 157.4 pg/mL (0-100)
[2020-10-05 18:01] LABS: Anion Gap 4 (5-15); BUN 15 mg/dL (7-18); Calcium,Total 9.8 mg/dL (8.5-10.1); Chloride 107 mmol/L (98-107); Creatinine, Serum 0.94 mg/dL (0.55-1.02); EST Glomerular Filtration Rate 62 mL/min (>60); Est Glom Filt Rate - Afr Amer 75 mL/min (>60); Glucose 106 mg/dL (74-106); Potassium 4.4 mmol/L (3.5-5.1); Sodium Level 139 mmol/L (136-145); Thyroid Stim Hormone (TSH) 1.96 uIU/mL (0.358-3.74)
== END ==
PROVIDERS: PCP Family Medicine; Referring Provider Physician Assistant Medical; Visit Provider Physician Assistant Medical
DX: I48.0 Paroxysmal atrial fibrillation (principal); I10 Essential (primary) hypertension; R06.00 Dyspnea, unspecified; G47.33 Obstructive sleep apnea (adult) (pediatric)
CPT/HCPCS: 36415; 80048; 83880; 84443; 85027

== ENCOUNTER → 2020-10-13 14:04 | Outpatient (CLI) | payer MEDICARE, SELFPAY | PROVIDERS: PCP Family Medicine; Referring Provider Physician Assistant Medical; Visit Provider Physician Assistant Medical | DX: I48.0 Paroxysmal atrial fibrillation (principal); R06.00 Dyspnea, unspecified; I10 Essential (primary) hypertension | CPT/HCPCS: 93271 ==

== ENCOUNTER → 2020-11-01 08:45 | Outpatient (CLI) | payer MEDICARE, SELFPAY ==
--- NOTE | 2020-11-01 08:51 | ECHOD_ITS ---
Reason For Study: Afib/Flutter Procedure This was a 2D Doppler, Color Flow transthoracic echocardiogram. Exam performed in department. Left Ventricle Normal LV size. Left ventricular systolic function is lower limits of normal. The estimated ejection fraction is 53 %. No regional wall motion abnormalities noted. Right Ventricle Normal RV size. Normal systolic function. Atria The left atrium is severely enlarged. The right atrium is severely enlarged. Probable patent foramen ovale. Mitral Valve Normal mitral valve. Tricuspid Valve Normal tricuspid valve. Mild (1+) tricuspid valve insufficiency. Pulmonary artery systolic pressure is 29 mmHg. Aortic Valve Trisinus/trileaflet aortic valve. Pulmonic Valve Normal pulmonic valve. Great Vessels Normal aortic root. The pulmonary artery is normal size. Normal inferior vena cava. Pericardium/Pleural No pericardial effusion. MMode/2D Measurements & Calculations LVIDd: 4.3 cm IVSd: 0.79 cm LA dimension: 3.7 cm LVIDs: 2.6 cm LVPWd: 1.0 cm RVDd: 3.8 cm FS: 39.5 % LAV(MOD-bp): 79.9 ml LA A4 area: 29.7 cm2 RA A4 area: 30.2 cm2 LAV(MOD-bp) Indexed: 39.8 ml/m2 LAV(MOD-sp2): 60.3 ml LAV(MOD-sp4): 100.6 ml Time Measurements MV dec time: 0.16 sec Doppler Measurements & Calculations MV E max richard: 103.1 cm/sec Ao V2 max: 124.2 cm/sec LV V1 max: 93.8 cm/sec Ao max P.2 mmHg LV V1 max P.5 mmHg PA V2 max: 77.0 cm/sec TR max richard: 249.6 cm/sec TR max P.9 mmHg ECHO/Echo Complete Interpretation Summary Normal LV size. Left ventricular systolic function is lower limits of normal. The estimated ejection fraction is 53 %. The left atrium is severely enlarged. The right atrium is severely enlarged. Probable patent foramen ovale. Ordering Physician: Jazmin Cheng Referring Physician: Rui Rea Performed By: Beck Rodriguez RCS
== END ==
PROVIDERS: PCP Family Medicine; Referring Provider Physician Assistant Medical; Visit Provider Physician Assistant Medical
DX: G47.33 Obstructive sleep apnea (adult) (pediatric) (principal); I48.0 Paroxysmal atrial fibrillation; R06.00 Dyspnea, unspecified; I10 Essential (primary) hypertension
CPT/HCPCS: 93306

== ENCOUNTER → 2020-11-16 18:27 | Outpatient (CLI) | payer MEDICARE, SELFPAY | PROVIDERS: PCP Family Medicine; Referring Provider Nurse Practitioner Family; Visit Provider Nurse Practitioner Family | DX: S41.109A Unspecified open wound of unspecified upper arm, initial encounter (principal) | CPT/HCPCS: 87070; 87205 ==

== ENCOUNTER → 2020-12-17 09:03 | Outpatient (CLI) | payer MEDICARE, SELFPAY ==
--- NOTE | 2020-12-17 09:15 | RAD_ITS ---
EXAM: XR CHEST, 2 VIEWS : 1945 CLINICAL INDICATION: Shortness of breath TECHNIQUE: Frontal and lateral views of the chest. This report was created using [email or web address] report generation technology. COMPARISON: 07/20/18 FINDINGS: LUNGS AND PLEURAL SPACES: Unremarkable. No consolidation or edema. No pneumothorax. No effusion. HEART: Mild enlargement of the cardiac silhouette. MEDIASTINUM: Central airways and mediastinal contour are unremarkable. BONES/JOINTS: Degenerative changes of the spine. SOFT TISSUES: Unremarkable. RAD/Chest PA and Lateral IMPRESSION: No acute findings in the chest. at 0753 Reported and signed by: Mark Luz MD Electronically Signed: Mark Luz MD at 7:53 EDT Tel , Service support ,
[2020-12-17 10:01] LABS: Hematocrit 47.2 % (37-47); Hemoglobin 15.8 g/dL (12.0-15.0); Mean Corp Hgb Conc 33.5 g/dL (32-36); Mean Corpuscular Hgb 29.8 pg (27.0-32.0); Mean Corpuscular Volume 88.9 fL (81-99); Mean Platelet Vol. 9.8 fl (6.2-12.0); Platelet Count 241 K/mm3 (150-450); RBC Distribution Width CV 13.2 % (11.6-14.6); RBC Distribution Width SD 43.2 fl (35.1-43.9); Red Blood Count 5.31 M/mm3 (4.2-5.4); White Blood Count 6.6 K/mm3 (4.4-11.0)
[2020-12-17 10:29] LABS: BNP,B-Type NATRIURETIC PEPTIDE 572.8 pg/mL (0-100)
[2020-12-17 10:44] LABS: Anion Gap 8 (5-15); BUN 19 mg/dL (7-18); BUN/Creat Ratio 16.7 RATIO (10-20); Calcium,Total 9.7 mg/dL (8.5-10.1); Chloride 108 mmol/L (98-107); Creatinine, Serum 1.14 mg/dL (0.55-1.02); EST Glomerular Filtration Rate 50 mL/min (>60); Est Glom Filt Rate - Afr Amer 60 mL/min (>60); Glucose 168 mg/dL (74-106); Potassium 3.9 mmol/L (3.5-5.1); Sodium Level 139 mmol/L (136-145); Thyroid Stim Hormone (TSH) 3.82 uIU/mL (0.358-3.74)
== END ==
PROVIDERS: Physician Assistant Medical; PCP Family Medicine; Referring Provider Internal Medicine Cardiovascular Disease; Visit Provider Internal Medicine Cardiovascular Disease
DX: R06.02 Shortness of breath (principal); I48.91 Unspecified atrial fibrillation; R05.9 Cough, unspecified; R42 Dizziness and giddiness; R53.83 Other fatigue; I48.19 Other persistent atrial fibrillation; R05.8 Other specified cough
CPT/HCPCS: 36415; 71046; 80048; 83880; 84443; 85027

== ENCOUNTER → 2021-01-05 11:15 | Outpatient (CLI) | payer MEDICARE, SELFPAY ==
[2021-01-05 12:11] LABS: T4 Free Direct 0.89 ng/dL (0.76-1.46); Thyroid Stim Hormone (TSH) 2.78 uIU/mL (0.358-3.74)
== END ==
PROVIDERS: PCP Family Medicine; Referring Provider Family Medicine; Visit Provider Family Medicine
DX: R79.89 Other specified abnormal findings of blood chemistry (principal); I48.91 Unspecified atrial fibrillation
CPT/HCPCS: 36415; 84439; 84443

== ENCOUNTER 2021-01-17 17:49 | Observation (INO) | payer MEDICARE, SELFPAY ==
[2021-01-10 10:03] LABS: Hematocrit 47.3 % (37-47); Hemoglobin 15.6 g/dL (12.0-15.0); Mean Corpuscular Hgb 29.7 pg (27.0-32.0); Mean Corpuscular Volume 89.9 fL (81-99); Mean Platelet Vol. 9.6 fl (6.2-12.0); Platelet Count 206 K/mm3 (150-450); RBC Distribution Width CV 13.2 % (11.6-14.6); Red Blood Count 5.26 M/mm3 (4.2-5.4); White Blood Count 7.4 K/mm3 (4.4-11.0)
[2021-01-10 10:13] LABS: International Normalized Ratio 1.6; Prothrombin Time (Protime)PT. 18.2 SECONDS (11.7-14.9)
[2021-01-10 10:46] LABS: Anion Gap 5 (5-15); BUN 16 mg/dL (7-18); BUN/Creat Ratio 13.3 RATIO (10-20); Calcium,Total 9.9 mg/dL (8.5-10.1); Chloride 105 mmol/L (98-107); EST Glomerular Filtration Rate 47 mL/min (>60); Est Glom Filt Rate - Afr Amer 57 mL/min (>60); Glucose 183 mg/dL (74-106); Sodium Level 138 mmol/L (136-145)
[2021-01-10 12:56] LABS: Bacteria 0 SEEN /hpf (None Seen); Mucous, Urine 0 SEEN /hpf (<or=2+); Red Blood Cells-Urine 0 SEEN /hpf (0-5)
[2021-01-10 13:45] LABS: Color, Urine Yellow (Yellow); Glucose, Dipstick Normal (Normal); Ketone-Dipstick Negative (Negative); Leukocyte Esterase-Dipstick 25 /ul (Negative); Nitrite-Dipstick Negative (Negative); Occult Blood-Urine Negative /ul (Negative); Protein-Dipstick Negative (Negative); Specific Gravity, Urine 1.015 (1.002-1.030); Urine Bilirubin Dipstick Negative (Negative); Urine Clarity Clear (Clear); Urine Urobilinogen Normal (Normal)
[2021-01-10 13:53] LABS: Squamous Epithelial Cells - UA 0-5 SEEN /hpf (5-10); White Blood Cells 0-5 SEEN /hpf (0-5)
[2021-01-17] VITALS (7 sets, daily range): BP systolic 105–135; BP diastolic 67–95; PULSE 87–104; RESP 16; TEMP 36.3–36.7; O2SAT 96–98; BMI 36.2; BMI 36.7
--- NOTE | 2021-01-17 08:18 | PCM.HP.BLA ---
History and Physical Date of Admission: 01/17/21 SAVANNA MCDONOUGH, is a 75 F who presents to the [facility] today for pacemaker insertion. She has a history of hypertension, atrial fibrillation with a cardioversion in January 2018/April of 2019 and hyperlipidemia. She does have IRON but does not use her CPAP. She could not tolerate it . She was in the office in June with concerns over afib. She was scheduled for a cardioversion. She converted on her own. She presented back to the office with concerns of returning Afib. She had a 30 day event monitor. Pauses were noted, Her flecainide was stopped, metoprolol was continued. She was occasionally lightheaded. Her medication was adjusted. She then returned to , she was not aware of this. Her Flecainide was not restarted with concerned of her pauses. He was then evaluated by cement despatch operator, Dr. Gtz in December 2020 with recommendations for permanent pacemaker placement and optimization of ventricular rate controlling medications. It is commented that if medications are unsuccessful or not tolerated that AV node catheter ablation could be considered. She feels that she is having a lot of prickles. She feels that this is related to her Afib. She does feel lightheaded. It has been on/off. She feels her breathing is okay. She does not have any edema. Her HR has been in the 80s. Intake Vital Signs: See EMR Intake Visit Reasons: PPM implant Thoracic Medicine Physician Required: No Accompanied by: None Is patient in pain?: No Allergies dronedarone [From Multaq] Allergy (Severe, Verified 12/10/20 13:01) ANAPHYLAXIS per [facility] [place] codeine Allergy (Intermediate, Verified 12/10/20 10:49) PT UNSURE OF REACTION meloxicam [From Mobic] Allergy (Intermediate, Verified 12/10/20 10:49) PT UNSURE OF REACTION nitrofurantoin Allergy (Intermediate, Verified 12/10/20 10:49) PT UNSURE OF REACTION Penicillins Allergy (Intermediate, Verified 12/10/20 10:49) PT UNSURE OF REACTION sulfamethoxazole [From Bactrim] Allergy (Intermediate, Verified 12/10/20 10:49) PT UNSURE OF REACTION trimethoprim [From Bactrim] Allergy (Intermediate, Verified 12/10/20 10:49) PT UNSURE OF REACTION Medications See EMR PFSH Medical History Anxiety Back problem Cystocele with rectocele Depression Dysphagia Essential (primary) hypertension Family history of cardiovascular disease Family history of diabetes mellitus Fecal incontinence GERD (gastroesophageal reflux disease) History of detached retina repair HLD (hyperlipidemia) Hypokalemia Lichen sclerosus IRON (obstructive sleep apnea) Paroxysmal atrial fibrillation Surgical History History of cardioversion (07/21/19) History of cholecystectomy (1977) History of left heart catheterization (07/29/08) History of tubal ligation (1981) Family History Father Cancer Prostate cancer Mother Myocardial infarction Arthritis Sister Breast cancer Brother Diabetes CHF (congestive heart failure) Myocardial infarction Son Diabetes Other Family history of cardiovascular disease Family history of diabetes mellitus Social History alcohol intake: never substance use type: does not use caffeine: No what type of physical activity do you participate in: walking frequency: 5-6 times per week seatbelt use: always do you feel safe at home: Yes additional social history: - retired ROS Const Const: Positive for fatigue; Negative for weakness, headache(s), frequent falls, excessive sweating, weight gain or weight loss Eyes Eyes: Negative for blind spots, loss of peripheral vision, transient loss of vision, blurry vision, change in vision or double vision ENT ENT: Positive for dizziness; Negative for headache(s), tinnitus, Nosebleed/epistaxis or balance problems Cardio Chest Pain: No Palpitations: Yes (see HPI) Edema: None Muscle aches with walking: None Resp Respiratory: Positive for SOB with activity; Negative for SOB at rest, SOB orthopnea\SOB lying down or Cough GI GI: Negative nausea, vomiting, heartburn, bloating, vomiting blood/hematemesis, bright, red blood in stools or black,tarry stools : Negative for hematuria Musc Musc: Negative for muscle aches/ myalgia, muscle weakness, joint pain or balance problems Skin Skin: Negative rash or wounds Neuro Neuro: Positive for dizziness and lightheadedness; Negative for near syncope, syncope, orthostatic symptoms, frequent falls, headache(s), weakness, confusion, memory loss, restless legs, blurry vision or double vision Eric Hematologic/Lymphatic: Negative for easy bleeding or easy bruising Endo Endo: Positive for fatigue; Negative for cold intolerance, heat intolerance or excessive sweating Psych Psych: Negative for anxiety or depression Allergy Allergy/Immunology: Negative for rash Cardiology Exam Const Appearance: cooperative, no acute distress and well developed Orientation: alert, awake and oriented x3 Head Head: normocephalic and atraumatic Mouth: moist mucous membranes Eyes General: appearance normal, both eyes and all related structures Conjunctivae: conjunctivae normal Pupils: PERRL EOM: EOM intact bilaterally Neck Neck: normal visual inspection, no lymphadenopathy and no JVD Carotids: Negative bruit Neck Mass: Negative Neck mass Chest Chest inspection: normal inspection of the chest and symmetric chest movement Auscultation: Bilateral: Clear to Auscultation Cardio Palpation: normal PMI Rate: regular rate Rhythm: regular rhythm Heart sounds: S1 normal and S2 normal; Negative rub, gallop or murmur GI GI: normal to inspection, soft, no hepatosplenomegaly and bowel sounds present; Negative tender Neuro General: patient alert, patient awake, patient oriented x3, CN's II-XI intact bilaterally and moves all extremities Extremities Pulses: Normal: Right Posterior Tibial Pulse, Left Posterior Tibial Pulse, Right Radial Pulse and Left Radial Pulse Lower Extremity Edema: None: Bilateral Psych Psychological: normal affect Assessment and Plan Assessment and Plan (1) Tachy-eric syndrome: Status: Acute (2) Paroxysmal atrial fibrillation: Status: Chronic Plan - Jazmin FRANKS, PA: Patient's 30-day event monitor from September 2020 showed 2 pauses at 3.2 seconds and 3 seconds. Patient will proceed with permanent pacemaker placement followed by medication optimization. Based on response, further recommendation will be made, that may include reevaluation by cement despatch operator. She is currently on metoprolol for rate control and Xarelto for long-term CVA protection. Supplemental Info Supplemental Information Echocardiogram in 2018 demonstrated: Normal LV size. Left ventricular systolic function is normal. The estimated ejection fraction is 60 %. No evidence for diastolic dysfunction. Mild (1+) eccentric mitral valve insufficiency. Pulmonary artery systolic pressure is 27 mmHg. Stress test 2019: Normal myocardial perfusion stress test with a low to moderate workload. Anterior breast wall attenuation likely. Preserved ejection fraction. Echocardiogram 2020: Normal LV size. Left ventricular systolic function is lower limits of normal. The estimated ejection fraction is 53 %. The left atrium is severely enlarged. The right atrium is severely enlarged. Probable patent foramen ovale. Labs: LDL Cholesterol 97 mg/dL (0-130) HDL Cholesterol 50 mg/dL (40-) Triglycerides 154 mg/dL (-199) VLDL Cholesterol 31 mg/dL (5-40)
--- NOTE | 2021-01-17 16:20 | CL.IE_ITS ---
Patient: SAVANNA MCDONOUGH Study Date: 01/17/2021 Performing: Reynaldo Thapa MD : [id number] Age: 75 Gender: female PROCEDURES PERFORMED [id number] PACER INSERT+DUAL LEADS INDICATIONS Atrial fibrillation Sinoatrial node dysfunction/Sick sinus syndrome PROCEDURE DETAILS The patient was brought to the Catheterization Lab in the postabsorptive nonsedated state. [facility] to the procedure. Local anesthetic was given subcutaneously to the le ft subclavian region with Lidocaine 2%. Access was achieved and a guidewire was advanced into the lef t subclavian vein. Incision was made to the left subclavicular area. PPM ventricular lead was inserte d / positioned to right ventricule. PPM ventricular lead testing performed. PPM ventricular lead test ing performed. PPM atrial lead was inserted / positioned to the right atrial appendage. PPM atrial le ad testing performed. The Atrial lead sutured in place with 3-0 Silk. The Ventricular PM lead sutured in place with 3-0 Silk. Device pocket was irrigated with antibiotic. PPM generator was attached to t he lead(s) and inserted into the pocket. PPM generator was then interrogated by the db2 systems programmer. Subcu taneous closure was completed with 3-0 Vicryl. Steri-strips applied to left subclavicular incision. Instrument, sponge, and needle counts were noted to be normal. The patient tolerated the pr ocedure well. Estimated Blood Loss: 50 ml's IMPLANTED / EX-PLANTED DEVICES IMPLANTED DEVICE(S): PPM Ventricular lead - Curing Oven Attendant: [employer], Model # [id number] [id number], 52cm , Serial # [id number] PPM Atrial lead - Curing Oven Attendant: [employer], Model # Ingevity [id number], 45cm , Serial # [id number] PPM Generator - Curing Oven Attendant: [employer], Model # L111 , Serial # [id number] DEVICE PARAMETERS DEVICE PARAMETERS: Mode - DDD lower rate - 60 upper rate - 130 rate response off Mode- DDD Lower rate- 60 Upper rate- 130 CONCLUSIONS / RECOMMENDATIONS Device Conclusions: Successful implantation of a dual chamber pacemaker Device Recommendations: Follow up with Primary Care Physician PROCEDURE MEDICATIONS Versed 1 mg IV Fentanyl 50 mcg IV Versed 1 mg IV Fentanyl 25 mcg IV Oxygen: 2 L/min via nasal cannula Clindamycin 900 mg IV 01/17/2021 14:52:52 Signed By Reynaldo Thapa MD On 01/17/2021 16:19:11 Reynaldo Thapa MD
--- NOTE | 2021-01-17 16:55 | PCS.PANDOC ---
PANDEMIC DOCUMENTATION INITIATED: Date: 01/17/2021 Time: 2795
[2021-01-17] MEDS: Acetaminophen 325 MG Tablet 650 MG PO (18:18)
--- NOTE | 2021-01-17 18:25 | RAD_ITS ---
STUDY: X-RAY CHEST REASON FOR EXAM: Female, 75 years old. CHEST PAIN pneumothorax post pacer TECHNIQUE: XR Chest 1 View COMPARISON: 12.17.20 FINDINGS: There is no demonstrated pleural abnormality. There is a left sided pacemaker batterypack. There is no pneumothorax. Normal size heart. Normal mediastinum and lucita. Normal visualized pulmonary arteries. There is atherosclerotic calcification of the aortic arch with tortuosity. There are diffuse degenerative changes of the visualized thoracic spine. There is degenerative osteoarthritis of the bilateral shoulders. There is no demonstrated abnormality of the visualized soft tissue structures of the upper abdomen. RAD/Chest 1 View (Portable) IMPRESSION: There are no acute findings. Electronically Signed: Mark Silva MD at 18:40 EST , Service support ,
[2021-01-17] MEDS: Metoprolol Tartrate 25 MG Tablet PO (20:49)
[2021-01-18 00:45] VITALS: BP 119/91; PULSE 77; RESP 16; TEMP 36.5; O2SAT 95
[2021-01-18] MEDS: Acetaminophen 325 MG Tablet 650 MG PO (00:45)
[2021-01-18 03:00] VITALS: PULSE 94
[2021-01-18 05:40] VITALS: BP 112/67; PULSE 85; RESP 16; TEMP 36.8; O2SAT 95
--- NOTE | 2021-01-18 05:55 | RAD_ITS ---
STUDY: X-RAY CHEST REASON FOR EXAM: Female, 75 years old. Post permanent ICD/Pacemaker -- inspiration/expiration. Arms Down. Wet read to MD TECHNIQUE: Inspiration expiration views. COMPARISON: Comparison is made with prior examination dated 01/17/2021. FINDINGS: A left-sided dual-chamber pacemaker is in situ. There is no evidence of pneumothorax. There is no demonstrated pleural abnormality. Normal size heart. Normal mediastinum and lucita. Normal visualized pulmonary arteries. There is atherosclerotic calcification of the aortic arch with tortuosity. There are diffuse degenerative changes of the visualized thoracic spine. Normal visualized ribs, clavicles, and shoulders. There is no demonstrated abnormality of the visualized soft tissue structures of the upper abdomen. RAD/Chest 3 View IMPRESSION: Status post left sided dual chamber pacemaker insertion. There is no evidence of pneumothorax. Electronically Signed: Nacho Sierra MD at 10:05 EST , Service support ,
--- NOTE | 2021-01-18 08:34 | PCM.PN.CARD ---
Subjective Subjective patient seen and evaluated Objective Data Vital Signs: Vital Signs Temp Pulse Resp BP Pulse Ox 98.3 F 85 16 112/67 95 01/18/21 05:40 01/18/21 05:40 01/18/21 05:40 01/18/21 05:40 01/18/21 05:40 Oxygen Delivery Method Room Air Weight: 214 lb 1.102 oz Body Mass Index (BMI) 36.7 Intake & Output: Intake and Output for Last 24 Hours 01/16/21 01/17/21 01/18/21 23:59 23:59 23:59 Intake Total 240 / 360 240 / 240 Output Total 450 / 450 Balance 240 / 210 -210 / -210 Lab / Micro Data Result Diagrams: 01/10/21 09:38 01/10/21 09:38 Cardiology Labs/Tests Rhythm: EKG: ECHO: Stress Test: Cardiac Cath: PCI: CT Surgery: Holter monitor: EPS: PPM: CXR: Chest CT Scan: Radiography Diagnostic Testing: Radiology Impression Chest X-Ray 01/17/21 18:25 IMPRESSION: There are no acute findings. Electronically Signed: Mark Silva MD at 18:40 EST , Service support , Physical Exam Const alert, oriented x3 and no apparent distress General Appearance: cooperative HEENT hearing grossly normal bilaterally Head and Scalp: atraumatic Eyes EOMs intact bilaterally Neck General: normal visual inspection Chest inspection of chest normal and palpation of chest normal Resp normal respiratory effort Auscultation: clear to auscultation bilaterally Cardio regular rate, regular rhythm, S1 normal heart sound and S2 normal heart sound Jugular Venous Distention: JVD GI normal to inspection, nondistended, normoactive bowel sounds Extremity normal capillary refill and no pedal edema Peripheral Pulses: Yes pulses 2+ throughout and femoral pulses present Skin no rashes or lesions noted Neuro oriented x3 and CN's II-XII intact bilaterally Psych Appearance: grossly normal and appropriate Assessment & Plan Assessment/Plan (1) History of permanent cardiac pacemaker placement: PLAN: patient underwent dual chamber pacer implant. CXR unremarkable and pacer check looks good. Will DC home for outpatient follow up.
--- NOTE | 2021-01-18 08:39 | PCM.DC ---
Discharge Instructions Diet Discharge Diet: No restrictions (as you feel able. No excessive stretching. No lifting your arm over your head (keep elbow below shoulder level) until seen for your pacemaker check. Do not lift your elbow away from your side until you are seen for your first visit. Keep the arm sling on if it helps remind you not to lift your arm.) Activity Discharge Activity: May Not Drive May shower in (days): 3 Additional Activity Instructions:: May shower or bathe on [ Day 3]. Do not scrub the incision or soak in the tub. Just wash with soap and let the water run over the incision. Gently pat dry with towel. Medications: Take your pain medication as directed. Refer to your discharge instruction sheet for a list of medications you are to take. Dressing / Incision Call your doctor if your incision/area has: Continuous Slow Oozing, Sudden Increased Bleeding, Increased Pain/ Swelling, Increased Redness, Foul Smelling Discharge and Swelling at the incision site Call your doctor if you observe: Fever of 101 or Higher, Shortness of breath, Dizziness, Fainting spells, Swelling in the ankles, Chest pain, Prolonged hiccupping and Increased palpitations (irregular heartbeat) Change Dressing in: 3 days Cleanse incision/area with: Do not get Incision Wet and Keep Dressing Clean & Dry Additional Dressing/Incision Instructions:: When dressing is removed, wash and dry incision. Keep covered with a light bandage if it is rubbing against your clothing. Do not cover the incision with an airtight bandage. Change the bandage daily. Do not remove steri strips. The strips will fall off on their own. Follow Up Care Please Follow Up With: Reynaldo Thapa MD When: Call [phone] for follow up. Follow up 01/24 Pacer clinic at 11 am. Test Results: Test results from this visit will be discussed in further detail at your follow-up appointment, if applicable. Discharge Plan Admission Admit Date/Time: 01/17/21 17:49 Attending Provider: Reynaldo Thapa Primary Care Provider: Rui Rea Discharge Orders/Prescriptions Prescriptions: Continued cholecalciferol (vitamin D3) 1,000 unit tablet 1,000 unit PO QDAY RF: 0 clobetasol 0.05 % cream 1 applic topical .COMPLEX Qty: 15 RF: 2 estradiol 0.01 % (0.1 mg/gram) cream See Rx Instructions VAGINAL .COMPLEX Qty: 42.5 RF: 2 metoprolol tartrate 25 mg tablet 25 mg PO BID Qty: 60 RF: 6 furosemide 40 mg tablet 40 mg PO DAILY Qty: 90 RF: 3 potassium chloride 10 mEq capsule, extended release 20 meq PO DAILY Qty: 60 RF: 11 Discontinued rivaroxaban 20 mg tablet 20 mg PO QHS RF: 0 Referrals / Follow Up: Rui Rea MD [Primary Care Provider] - Disposition Disposition (needs filled in before D/C Order can be placed): Home, Self Care
[2021-01-18 10:12] VITALS: PULSE 103
[2021-01-18] MEDS: Metoprolol Tartrate 25 MG Tablet PO (10:12)
[2021-01-18] MEDS: Potassium Chloride Oral Tablet 20 MEQ PO (10:12)
[2021-01-18] MEDS: Furosemide 40 MG Tablet PO (10:12)
--- NOTE | 2021-01-18 11:11 | PHA.DC.MR ---
Pharmacy Service has performed discharge medication reconciliation for this patient. The patient's discharge medication list was reviewed for discrepancies and discrepancies were resolved. Home Medications cholecalciferol (vitamin D3) 25 mcg (1,000 unit) tablet 1,000 unit PO QDAY 07/06/17 clobetasol 0.05 % topical cream 1 applic TOPICAL .COMPLEX #15 g 01/26/20 estradiol See Rx Instructions VAGINAL .COMPLEX #42.5 g 01/26/20 metoprolol tartrate 25 mg tablet 25 mg PO BID #60 tab 12/10/20 furosemide 40 mg tablet 40 mg PO DAILY #90 tab 12/20/20 potassium chloride 10 mEq capsule,extended release 20 meq PO DAILY #60 cap 01/10/21
== END 2021-01-18 08:37 | disposition home or self-care (01) ==
LOC: CLSP 18:00 → PCU 18:00
PROVIDERS: Admitting Provider Internal Medicine Cardiovascular Disease; PCP Family Medicine; Referring Provider Internal Medicine Cardiovascular Disease; Visit Provider Internal Medicine Cardiovascular Disease
DX: Z45.018 Encounter for adjustment and management of other part of cardiac pacemaker (principal); I49.5 Sick sinus syndrome; I48.0 Paroxysmal atrial fibrillation; I10 Essential (primary) hypertension; E78.5 Hyperlipidemia, unspecified; G47.33 Obstructive sleep apnea (adult) (pediatric); K21.9 Gastro-esophageal reflux disease without esophagitis; Z79.899 Other long term (current) drug therapy; Z79.01 Long term (current) use of anticoagulants
CPT/HCPCS: 33208; 36415; 71045; 71047; 80048; 81001; 85027; 85610; 99152; 99153; 99218; J7040; J7050; Q9967; A4216; C1894; G0378

== ENCOUNTER 2021-02-09 20:28 | Observation (INO) | payer MEDICARE, SELFPAY ==
[2021-02-09 20:29] VITALS: BP 138/99; PULSE 101; RESP 18; TEMP 36.7; O2SAT 98; BMI 37.2
--- NOTE | 2021-02-09 20:34 | EKG12_ITS ---
Test Reason : CP Blood Pressure : / mmHG Vent. Rate : 108 BPM Atrial Rate : 084 BPM P-R Int : 000 ms QRS Dur : 092 ms QT Int : 292 ms P-R-T Axes : 000 -47 175 degrees QTc Int : 391 ms Atrial fibrillation Left axis deviation Nonspecific T wave abnormality Abnormal ECG Confirmed by ED HURT, YUE ([id number]), dictionary editor ARJUN OLIVA ([id number]) on 02/15/2021 9:26:37 AM Referred By: BETH/BOBBY Confirmed By:YUE WARD MD
[2021-02-09 20:47] LABS: Absolute Neutrophil Count 4.7 X10^3/uL (2.0-7.7); Basophil# 0.03 X10^3/uL; Basophil% 0.3 % (0-1); Eosinophil# 0.15 X10^3/uL; Eosinophils% 1.7 % (0-5); Hematocrit 45.4 % (37-47); Hemoglobin 15.1 g/dL (12.0-15.0); Lymphocyte % 36.5 % (19-41); Mean Corp Hgb Conc 33.3 g/dL (32-36); Mean Corpuscular Hgb 29.3 pg (27.0-32.0); Mean Corpuscular Volume 88.2 fL (81-99); Mean Platelet Vol. 9.2 fl (6.2-12.0); Monocyte# 0.64 X10^3/uL; Monocyte% 7.3 % (0-10); NRBC Flagged by Analyzer 0 % (0-5); Neutrophil # 4.69 X10^3/uL (2.7-7.7); Neutrophil % 53.6 % (47-70); Platelet Count 211 K/mm3 (150-450); RBC Distribution Width CV 12.4 % (11.6-14.6); RBC Distribution Width SD 40.5 fl (35.1-43.9); Red Blood Count 5.15 M/mm3 (4.2-5.4); White Blood Count 8.8 K/mm3 (4.4-11.0)
[2021-02-09 20:51] VITALS: BP 117/88; PULSE 96; RESP 17; O2SAT 97
--- NOTE | 2021-02-09 20:52 | RAD_ITS ---
HISTORY: chest pain EXAMINATION/TECHNIQUE: XR Chest 1 View: Portable AP upright chest x-ray COMPARISON: 01/18/21 FINDINGS: LINES/DEVICES: Stable transvenous pacemaker. LUNGS: No consolidation, edema or effusion. No pneumothorax. MEDIASTINUM AND CARDIOVASCULAR STRUCTURES: Stable mild cardiomegaly. Central airways and mediastinal contour are unremarkable. BONES AND SOFT TISSUES: No acute bony abnormalities. RAD/Chest 1 View (Portable) IMPRESSION: Cardiomegaly without radiographic evidence of acute cardiopulmonary disease. at 2212 Reported and signed by: Yovanny Arciniega MD Electronically Signed: Yovanny Arciniega MD at 22:11 EST Tel , Service support ,
--- NOTE | 2021-02-09 20:58 | EDS_ITS ---
HPI History of Present Illness Chief Complaint: Chest Pain Informant: patient Onset/Context/Timing Onset: Hours (1-1/2) Activity at onset: sudden Timing: Continuous Quality: Positive for Burning and Sharp Location: Left Parasternal and Left Chest Worsened By: Nothing Relieved By: Nothing Associated Symptoms: Negative for Nausea, Vomiting, Diaphoresis, Dyspnea, Cough, Fever, Lightheadedness, Acid Reflux and Palpitations Narrative Narrative: Patient presents with chest pain that began approximately 1-1/2 hours prior to arrival. Patient describes her pain as burning. Patient states it then became sharp. Patient states her pain is over the left chest area. Patient states nothing makes it better nothing makes it worse. Patient states she recently had a pacemaker placed. Patient is questioning whether this is related to the pacemaker or not. Patient states she has a history of atrial fibrillation and her print line tailer was considering cardioversion for her. Patient denies any nausea or vomiting. Patient denies any diaphoresis. Patient denies any shortness of breath or cough. Patient denies any fevers or chills. Patient denies any lightheadedness or palpitations. CVD Risk Factors: Positive for Family History 1' </=55; Negative for Hypertension, Diabetes, Hypercholesterolemia and Smoking PE Risk Factors: Positive for Recent Travel/Surgery; Negative for Recent Immobilization, Prior DVT or PE, Cancer and OCP + Smoking + >/=35 PFSH PFSH Medical History Anxiety Atrial fibrillation Atrophic vaginitis Back problem Cystocele with rectocele Depression Dysphagia Essential (primary) hypertension Family history of cardiovascular disease Family history of diabetes mellitus Fecal incontinence GERD (gastroesophageal reflux disease) History of detached retina repair HLD (hyperlipidemia) Hypokalemia Lichen sclerosus IRON (obstructive sleep apnea) Pacemaker Paroxysmal atrial fibrillation Symptomatic bradycardia Home Medications cholecalciferol (vitamin D3) 25 mcg (1,000 unit) tablet 1,000 unit PO QDAY 07/06/17 [History Last Taken 07/20/18] furosemide 40 mg tablet 40 mg PO DAILY #90 tab 12/20/20 [Rx Last Taken Unknown] potassium chloride 10 mEq capsule,extended release 20 meq PO DAILY #60 cap 01/10/21 [Rx Last Taken Unknown] rivaroxaban 20 mg tablet 20 mg PO QHS 01/21/21 [History Last Taken Unknown] metoprolol tartrate 50 mg tablet 50 mg PO BID #60 tab 01/24/21 [Rx Last Taken Unknown] citalopram 20 mg PO DAILY 02/09/21 [History Last Taken Unknown] Allergy/AdvReac Type Severity Reaction Status Date / Time dronedarone [From Multaq] Allergy Severe ANAPHYLAXIS Verified 02/09/21 20:28 per [facility] [place] codeine Allergy Intermediate PT UNSURE Verified 02/09/21 20:28 OF REACTION meloxicam [From Mobic] Allergy Intermediate PT UNSURE Verified 02/09/21 20:28 OF REACTION nitrofurantoin Allergy Intermediate PT UNSURE Verified 02/09/21 20:28 OF REACTION Penicillins Allergy Intermediate PT UNSURE Verified 02/09/21 20:28 OF REACTION sulfamethoxazole Allergy Intermediate PT UNSURE Verified 02/09/21 20:28 [From Bactrim] OF REACTION trimethoprim [From Bactrim] Allergy Intermediate PT UNSURE Verified 02/09/21 20:28 OF REACTION Family History Father Cancer Prostate cancer Mother Myocardial infarction Arthritis Sister Breast cancer Brother Diabetes CHF (congestive heart failure) Myocardial infarction Son Diabetes Other Family history of cardiovascular disease Family history of diabetes mellitus Surgical History History of cardioversion (07/21/19) History of cholecystectomy (1977) History of left heart catheterization (07/29/08) History of permanent cardiac pacemaker placement (01/17/21) History of tubal ligation (1981) Social History Smoking Status: Never smoker alcohol intake: never substance use type: does not use caffeine: No what type of physical activity do you participate in: walking frequency: 5-6 times per week seatbelt use: always do you feel safe at home: Yes additional social history: - retired ROS ROS ED Constitutional Constitutional ED: Denies chills or fever(s) Eyes Eyes: Denies blurry vision or change in vision ENT ENT ED: Denies rhinorrhea or sore throat Cardiovascular Cardiovascular: Reports as per HPI, chest pain and palpitations Respiratory/Chest Respiratory/Chest: Denies cough or dyspnea Gastrointestinal Gastrointestinal: Reports nausea; Denies abdominal pain or vomiting Genitourinary Genitourinary ED: Denies dysuria or hematuria Musculoskeletal Musculoskeletal: Denies back pain or neck pain Integumentary Denies abscess or rash Neurologic Neurologic: Denies headache(s) or weakness Allergic/Immunologic Allergic/Immunologic ED: Denies mouth swelling or urticaria EXAM Physical Exam Const Vital Signs: 02/09/21 20:29 02/09/21 20:51 02/09/21 20:54 Temperature 98.1 F Temperature Source Temporal Pulse Rate 101 H 96 Respiratory Rate 18 17 Blood Pressure 138/99 H 117/88 H Blood Pressure Mean 112 97 Pulse Ox 98 97 Oxygen Delivery Method Room Air Room Air Room Air 02/09/21 21:27 02/09/21 23:00 02/09/21 23:39 Temperature Temperature Source Pulse Rate 98 90 107 H Respiratory Rate 19 H 19 H Blood Pressure 142/84 H 122/85 H 137/91 H Blood Pressure Mean 103 97 Pulse Ox 96 97 Oxygen Delivery Method Room Air Room Air 02/09/21 23:45 Temperature Temperature Source Pulse Rate 91 Respiratory Rate 18 Blood Pressure 86/46 L Blood Pressure Mean 59 Pulse Ox 94 Oxygen Delivery Method Room Air Positive well nourished, well developed and obese General Appearance ED: well developed Nutritional Appearance: obese HEENT normocephalic and atraumatic Eyes PERRL and EOMs intact bilaterally Neck supple and no JVD Chest Wall palpation of chest normal Resp normal respiratory effort and clear to auscultation bilaterally Effort and Inspection: Negative for respiratory distress Cardio regular rate and no murmurs Rhythm: abnormal rhythm irregularly irregular GI normal to inspection, nondistended, normoactive bowel sounds, soft to palpation, non-tender and non-distended Extremity normal to inspection General Extremety ED: Negative for edema or tenderness General Extremity: Negative for edema Neuro oriented x3, CN's II-XII intact bilaterally and no sensory deficits noted Sensorium / Orientation: awake and alert Motor Exam: strength 5/5 throughout Psych mental status grossly normal Heart Score History: Moderately Suspicious ECG: Nonspecific Repolarization Age: >/= 65 years Risk Factors: 1 or 2 Risk Factors Troponin: </= Normal Limit Score: 5 MDM MDM MDM Narrative Medical decision making narrative: Patient was given aspirin here. Patient was given Zofran. EKG was obtained. On my interpretation, there is atrial fibrillation with a rate of 108. There are nonspecific ST-T wave changes. There is no ST elevation or depression. Portable 1 view chest x-ray was obtained. On my interpretation, lung short are clear. There is cardiomegaly. Bony thorax is normal. There is no acute process noted. Radiologist also interpreted the x-ray and agrees. CBC was within normal limits. Basic metabolic profile was normal. Initial high-sensitivity troponin was normal at 6. 2-hour repeat high-sensitivity troponin was normal at 6. Patient had an episode where she walked to the bathroom and became nauseated after walking. This improved with rest. Patient states her chest pain has improved on reevaluation but is still present. Prior records show that her last stress test was in May 2018. Case was discussed with the hospitalist. We will admit the patient to PCU for observation. Patient understands and is agreeable with the plan. All questions were answered. Lab Data Attestation: I reviewed the patient's lab results. Labs: Laboratory Results - last 24 hr 02/09/21 02/09/21 02/09/21 20:42 20:42 22:40 WBC 8.8 RBC 5.15 Hgb 15.1 H Hct 45.4 MCV 88.2 MCH 29.3 MCHC 33.3 RDW Std Deviation 40.5 RDW Coeff of Inderjit 12.4 Plt Count 211 MPV 9.2 Immature Gran % (Auto) 0.600 Neut % (Auto) 53.6 Lymph % (Auto) 36.5 Graves % (Auto) 7.3 Eos % (Auto) 1.7 Baso % (Auto) 0.3 Absolute Neuts (auto) 4.7 Absolute Lymphs (auto) 3.20 Nucleated RBC % 0 Sodium 139 Potassium 3.9 Chloride 103 Carbon Dioxide 25.0 Anion Gap 11 BUN 17 Creatinine 1.12 H Estim Creat Clear Calc 38.63 Est GFR (MDRD) Af Amer 61 Est GFR (MDRD) Non-Af 51 L BUN/Creatinine Ratio 15.2 Glucose 155 H Calcium 9.9 Troponin I High Sens 6 6 Radiography Chest X-Ray - ED: 1 View, Read by ED Physician, Read by Radiologist, No Acute Disease and Cardiomegaly Diagnostic Testing: Clinical Impression(s) from Imaging Studies Chest X-Ray 02/09/21 20:52 IMPRESSION: Cardiomegaly without radiographic evidence of acute cardiopulmonary disease. at 2212 Reported and signed by: Yovanny Arciniega MD Electronically Signed: Yovanny Arciinega MD at 22:11 EST Tel , Service support , EKG Initial EKG: Attestation: I personally reviewed and interpreted this EKG as follows: Interpretation: No Acute Injury Pattern and Atrial Fibrillation (108) Prior EKG tracings: available for review Prior: Unchanged Treatment and Re-Evaluation Vital Sign Attestation:: Vital signs were reviewed prior to admission. Patient's blood pressure dropped after administration of sublingual n itroglycerin. This is improving with IV fluids. Discharge Plan Dx/Rx/DC Orders Clinical Impression: Chest pain Disposition Disposition: Acute Care Hospital [facility]
[2021-02-09 21:07] LABS: Anion Gap 11 (5-15); BUN 17 mg/dL (7-18); BUN/Creat Ratio 15.2 RATIO (10-20); Calcium,Total 9.9 mg/dL (8.5-10.1); Chloride 103 mmol/L (98-107); Creatinine, Serum 1.12 mg/dL (0.55-1.02); EST Glomerular Filtration Rate 51 mL/min (>60); Est Glom Filt Rate - Afr Amer 61 mL/min (>60); Estimated Creatinine Clearance 38.63 ml/min; Glucose 155 mg/dL (74-106); Potassium 3.9 mmol/L (3.5-5.1); Sodium Level 139 mmol/L (136-145); Troponin-I HS 6 pg/mL (3.0-54.0)
--- NOTE | 2021-02-09 21:25 | ED.RN ---
PT WAS AMBULATED BY THE ASSISTANT PRODUCT MANAGER TO THE RESTROOM, PT BECAME VERY DIZZY W NAUSEA AND SWEATING WHILE IN THE RESTROOM.
[2021-02-09 21:27] VITALS: BP 142/84; PULSE 98; RESP 19; O2SAT 96
[2021-02-09] MEDS: Aspirin 81 MG TAB.CHEW 324 MG PO (21:32)
[2021-02-09] MEDS: Ondansetron 4 MG/2 ML Vial IV (22:18)
[2021-02-09 23:00] VITALS: BP 122/85; PULSE 90; RESP 19; O2SAT 97
[2021-02-09 23:04] LABS: Troponin-I HS 6 pg/mL (3.0-54.0)
[2021-02-09 23:39] VITALS: BP 137/91; PULSE 107
[2021-02-09] MEDS: Nitroglycerin SL (ED/IMG/CATH) 0.4 MG TABLET SL (23:39)
[2021-02-09 23:45] VITALS: BP 86/46; PULSE 91; RESP 18; O2SAT 94
[2021-02-10] VITALS (9 sets, daily range): BP systolic 109–135; BP diastolic 71–82; PULSE 71–113; RESP 16–18; TEMP 36.4–36.7; O2SAT 95–98; BMI 37.0
--- NOTE | 2021-02-10 00:09 | PCM.HP.STD ---
HPI - General General Date of Admission: 02/10/21 HPI Narrative SAVANNA MCDONOUGH, is a 75 F with a significant history of atrial fibrillation status post cardioversion and permanent pacemaker (pacemaker was placed on January 17, 2021); obstructive sleep apnea who presents to the emergency department with chest pain that started about an hour before presentation. Initial her chest pain spun across her entire chest. Later on the chest pain went away but it returned and localized to her left chest. And then it moved to her entire chest again. She described the chest pain as a warm and prickly feeling. The chest pain radiated to both arms. She reports nausea. She denies any aggravating factors. She received nitroglycerin in the emergency department to help with her chest pain. Troponin times 2 at the emergency department was negative. Later patient went to the restroom. She felt lightheaded and was nauseated after going to the bathroom. At the emergency department her blood pressure fell with nitroglycerin but with IV fluid bolus her blood pressure improved PFSH Medical History Anxiety Atrial fibrillation Atrophic vaginitis Back problem Cystocele with rectocele Depression Dysphagia Essential (primary) hypertension Family history of cardiovascular disease Family history of diabetes mellitus Fecal incontinence GERD (gastroesophageal reflux disease) History of detached retina repair HLD (hyperlipidemia) Hypokalemia Lichen sclerosus IRON (obstructive sleep apnea) Pacemaker Paroxysmal atrial fibrillation Symptomatic bradycardia Home Medications cholecalciferol (vitamin D3) 25 mcg (1,000 unit) tablet 1,000 unit PO QDAY 07/06/17 [History Last Taken 02/09/21] furosemide 40 mg tablet 40 mg PO DAILY #90 tab 12/20/20 [Rx Last Taken 02/09/21] potassium chloride 10 mEq capsule,extended release 20 meq PO DAILY #60 cap 01/10/21 [Rx Last Taken 02/09/21] rivaroxaban 20 mg tablet 20 mg PO QHS 01/21/21 [History Last Taken 02/08/21] metoprolol tartrate 50 mg tablet 50 mg PO BID #60 tab 01/24/21 [Rx Last Taken 02/09/21] citalopram 20 mg PO DAILY 02/09/21 [History Last Taken 02/09/21] Allergy/AdvReac Type Severity Reaction Status Date / Time dronedarone [From [facility]] Allergy Severe ANAPHYLAXIS Verified 02/10/21 00:56 per [facility] [place] codeine Allergy Intermediate PT UNSURE Verified 02/10/21 00:56 OF REACTION meloxicam [From Mobic] Allergy Intermediate PT UNSURE Verified 02/10/21 00:56 OF REACTION nitrofurantoin Allergy Intermediate PT UNSURE Verified 02/10/21 00:56 OF REACTION Penicillins Allergy Intermediate PT UNSURE Verified 02/10/21 00:56 OF REACTION sulfamethoxazole Allergy Intermediate PT UNSURE Verified 02/10/21 00:56 [From Bactrim] OF REACTION trimethoprim [From Bactrim] Allergy Intermediate PT UNSURE Verified 02/10/21 00:56 OF REACTION Family History Father Cancer Prostate cancer Mother Myocardial infarction Arthritis Sister Breast cancer Brother Diabetes CHF (congestive heart failure) Myocardial infarction Son Diabetes Other Family history of cardiovascular disease Family history of diabetes mellitus Surgical History History of cardioversion (07/21/19) History of cholecystectomy (1977) History of left heart catheterization (07/29/08) History of permanent cardiac pacemaker placement (01/17/21) History of tubal ligation (1981) Social History Smoking Status: Never smoker alcohol intake: never substance use type: does not use caffeine: No what type of physical activity do you participate in: walking frequency: 5-6 times per week seatbelt use: always do you feel safe at home: Yes additional social history: - retired ROS ROS Narrative Constitutional: Denies fever, chills, fatigue, anorexia and change in weight Eyes: Denies blurry vision, change in eye color, change in vision, discharge from eye(s), double vision, erythema, eye pain, loss of vision or other HEENT: Denies abnormal hearing, dysphagia, ear pain, epistaxis, headache(s), hearing loss, nasal congestion, nasal discharge, post nasal drip, sinus pressure, sore throat or other Cardiovascular: Reports chest pain. Denies palpitations. Denies dyspnea on exertion, orthopnea and paroxysmal nocturnal dyspnea Respiratory/Chest: Denies cough, excessive phlegm production, shortness of breath with exertion and wheezing Gastrointestinal: Reports nausea. Denies abdominal pain, coffee ground emesis, constipation, diarrhea, dyspepsia, hematemesis, hematochezia, loose stools, melena, vomiting or other Genitourinary: Denies burning urination, difficulty urinating, dysuria, hematuria, nocturia, urinary frequency, urinary hesitancy, urinary incontinence, urinary urgency or other Musculoskeletal: Denies arthralgias, back pain, joint pain, joint stiffness, joint swelling, myalgias, neck pain or other Neurologic: Denies abnormal gait, abnormal speech, confusion, disequilibrium, dizziness, focal weakness, headache(s), numbness, paresthesias, seizure-like activity, seizures, syncope, tingling, tremor(s) or other Psychiatric: Denies anxiety, depression, homicidal ideation, suicidal ideation or other Endocrinology: Denies change in body appearance, cold intolerance, excessive sweating, heat intolerance, polydipsia, polyuria or other Hematologic/Lymphatic: Denies anemia, easy bleeding, easy bruising, lymphadenopathy or other Integumentary: Denies rashes Allergic/Immunologic: Denies rhinitis, hives, eczema, asthma or other Vital Signs Vital Signs Vital Signs: 02/09/21 20:29 02/09/21 20:51 02/09/21 20:54 Temperature 98.1 F Temperature Source Temporal Pulse Rate 101 H 96 Respiratory Rate 18 17 Blood Pressure 138/99 H 117/88 H Blood Pressure Mean 112 97 Pulse Ox 98 97 Oxygen Delivery Method Room Air Room Air Room Air 02/09/21 21:27 02/09/21 23:00 02/09/21 23:39 Temperature Temperature Source Pulse Rate 98 90 107 H Respiratory Rate 19 H 19 H Blood Pressure 142/84 H 122/85 H 137/91 H Blood Pressure Mean 103 97 Pulse Ox 96 97 Oxygen Delivery Method Room Air Room Air 02/09/21 23:45 Temperature Temperature Source Pulse Rate 91 Respiratory Rate 18 Blood Pressure 86/46 L Blood Pressure Mean 59 Pulse Ox 94 Oxygen Delivery Method Room Air Weight Weight: 98.43 kg Body Mass Index (BMI) 37.2 Physical Exam Narrative Physical exam: General: Well-nourished, well-developed. Head: Normocephalic, atraumatic, no tenderness Eyes: PERRLA, EOMI ENT, no trauma, moist mucous membranes, no rhinorrhea Neck: Nontender, full range of motion, no spinal tenderness, deformities, step-off CVS: Irregularly irregular rate and rhythm. S1-S2 present. No murmur, gallop or rub. Respiratory : clear to auscultation bilaterally, chest wall nontender, no wheezing Abdomen: Soft, nontender, nondistended, normal bowel sounds, no masses : Deferred Back: Nontender, no CVA tenderness, no midline spinal tenderness, deformities, step-offs Extremities: Nontender full range of motion, no trauma Skin: Normal color, no trauma, abrasions Neuro: Alert, oriented, cranial nerves II through XII grossly intact. Psychiatry: Normal mood. Normal affect. Not depressed. Not anxious. Results Lab / Micro Data Result Diagrams: 02/10/21 03:00 02/10/21 03:00 Labs: Laboratory Results - last 24 hr 02/09/21 20:42: WBC 8.8, RBC 5.15, Hgb 15.1 H, Hct 45.4, MCV 88.2, MCH 29.3, MCHC 33.3, RDW Std Deviation 40.5, RDW Coeff of Inderjit 12.4, Plt Count 211, MPV 9.2, Immature Gran % (Auto) 0.600, Neut % (Auto) 53.6, Lymph % (Auto) 36.5, [place] % (Auto) 7.3, Eos % (Auto) 1.7, Baso % (Auto) 0.3, Absolute Neuts (auto) 4.7, Absolute Lymphs (auto) 3.20, Nucleated RBC % 0 02/09/21 20:42: Sodium 139, Potassium 3.9, Chloride 103, Carbon Dioxide 25.0, Anion Gap 11, BUN 17, Creatinine 1.12 H, Estim Creat Clear Calc 38.63, Est GFR (MDRD) Af Amer 61, Est GFR (MDRD) Non-Af 51 L, BUN/Creatinine Ratio 15.2, Glucose 155 H, Calcium 9.9, Troponin I High Sens 6 02/09/21 22:40: Troponin I High Sens 6 Radiology Impression Chest X-Ray 02/09/21 20:52 IMPRESSION: Cardiomegaly without radiographic evidence of acute cardiopulmonary disease. at 2212 Reported and signed by: Yovanny Arciniega MD Electronically Signed: Yovanny Arciniega MD at 22:11 EST Tel , Service support , Assessment & Plan Assessment/Plan (1) Chest pain: PLAN: Chest Pain Place on a monitored bed at progressive care unit Actual CXR image was independently visualized. I agree with alleges interpretation above. Actual EKG tracing was independently visualized. EKG tracing showed nonspecific changes. Received full dose aspirin at the emergency department. ASA 81 mg p.o. daily ordered With nitroglycerin at the emergency department patient got hypotensive. Will avoid nitroglycerin at this time. Morphine as needed for pain ordered We will check lipid panel. Review of requested the patient had echocardiogram on 11/01/2020. Echocardiogram showed estimated ejection fraction of 53%. Left atrium was severely enlarged. Right atrium was severely enlarged. Probable patent madrigal ovale was reported. Last stress test on file was on 05/20/2018. Conclusion of the stress test was: Normal myocardial perfusion stress test for low to moderate workload; anterior breast wall attenuation likely; preserved ejection fraction. Chemical Stress test in the AM if the cardiac enzymes are negative. Would hold off Xarelto at this time just in case stress test is positive and patient needs a heart cath. 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 Consider notifying Dr. Tahpa. Metoprolol continued Atrial fibrillation/tachybradycardia syndrome Patient in sinus rhythm at this time Patient with permanent pacemaker Xarelto on hold at this time. Metoprolol continued. Hypertension Blood pressure is not within goal after nitroglycerin but blood pressure improved with fluid bolus. Metoprolol and Lasix continued. Trend blood pressure and adjust blood pressure medications. Depression/anxiety Citalopram continued DVT prophylaxis: SCD ordered Charges/Coding Visit Charges OBSV E&M: 80086 Initial observation care L3
--- NOTE | 2021-02-10 00:49 | EKG12_ITS ---
Test Reason : CP ADMISSION Blood Pressure : / mmHG Vent. Rate : 093 BPM Atrial Rate : 069 BPM P-R Int : 000 ms QRS Dur : 092 ms QT Int : 322 ms P-R-T Axes : 000 -45 147 degrees QTc Int : 400 ms Atrial fibrillation Left axis deviation Low voltage QRS (Limb Leads) Poor R wave progression Nonspecific T wave abnormality Abnormal ECG Confirmed by DESIREE HURT, JANE ([id number]), editor continuity and script ARJUN OLIVA ([id number]) on 02/14/2021 10:23:37 AM Referred By: ROSE Confirmed By:JANE RAMÍREZ MD
--- NOTE | 2021-02-10 01:07 | PCS.PANDOC ---
PANDEMIC DOCUMENTATION INITIATED: Date: 10/04/2020 Time: 190
[2021-02-10 03:04] LABS: Absolute Lymphocyte Count 1.86 X10^3/uL (0.83-4.51); Absolute Neutrophil Count 6.4 X10^3/uL (2.0-7.7); Basophil# 0.03 X10^3/uL; Basophil% 0.3 % (0-1); Eosinophil# 0.05 X10^3/uL; Eosinophils% 0.6 % (0-5); Hematocrit 42.5 % (37-47); Hemoglobin 14.1 g/dL (12.0-15.0); Lymphocyte # 1.86 X10^3/ul (0.83-4.51); Lymphocyte % 20.8 % (19-41); Mean Corp Hgb Conc 33.2 g/dL (32-36); Mean Corpuscular Hgb 29.4 pg (27.0-32.0); Mean Corpuscular Volume 88.5 fL (81-99); Mean Platelet Vol. 9.4 fl (6.2-12.0); Monocyte# 0.52 X10^3/uL; Monocyte% 5.8 % (0-10); NRBC Flagged by Analyzer 0 % (0-5); Neutrophil # 6.44 X10^3/uL (2.7-7.7); Neutrophil % 72.1 % (47-70); Platelet Count 198 K/mm3 (150-450); RBC Distribution Width CV 12.5 % (11.6-14.6); RBC Distribution Width SD 40.9 fl (35.1-43.9); White Blood Count 8.9 K/mm3 (4.4-11.0)
[2021-02-10 03:20] LABS: Anion Gap 8 (5-15); BUN 16 mg/dL (7-18); BUN/Creat Ratio 17.6 RATIO (10-20); Calcium,Total 9.4 mg/dL (8.5-10.1); Chloride 107 mmol/L (98-107); Cholesterol 150 mg/dL (200); Creatinine, Serum 0.91 mg/dL (0.55-1.02); EST Glomerular Filtration Rate 65 mL/min (>60); Est Glom Filt Rate - Afr Amer 78 mL/min (>60); Estimated Creatinine Clearance 47.55 ml/min; Glucose 189 mg/dL (74-106); High Density Lipoprotein 46 mg/dL; Potassium 4.2 mmol/L (3.5-5.1); Sodium Level 139 mmol/L (136-145); Triglycerides 92 mg/dL; Very Low Density Lipoprotein 18 mg/dL (5-40)
[2021-02-10 03:53] LABS: Troponin-I HS 5 pg/mL (3.0-54.0)
[2021-02-10 05:21] LABS: Cholesterol 164 mg/dL (200); High Density Lipoprotein 45 mg/dL; Triglycerides 181 mg/dL; Very Low Density Lipoprotein 36 mg/dL (5-40)
[2021-02-10] MEDS: Aspirin E.C. 81 MG Tablet PO (06:11)
[2021-02-10] MEDS: Furosemide 40 MG Tablet PO (09:49)
[2021-02-10] MEDS: Cholecalciferol (VIT D3) 25 MCG TABLET (1,000 UNITS) PO (09:49)
[2021-02-10] MEDS: Metoprolol Tartrate 50 MG Tablet PO (09:49)
[2021-02-10] MEDS: Citalopram 20 MG Tablet PO (09:49)
[2021-02-10] MEDS: Potassium Chloride Oral Tablet 20 MEQ PO (09:49)
--- NOTE | 2021-02-10 11:30 | STRESSREP_ITS ---
Stress Test Report Pharmacologic/Lexiscan myocardial perfusion stress test. Indication; 75-year-old patient history of A. fib status post cardioversion and placement of a permanent pacemaker recently in January 17, 2021. Patient also had obstructive sleep apnea she presented to the ER with symptoms of chest pain cardiac work-up with him high sensitive troponin I is negative. Based on the clinical presentation she is scheduled for pharmacological stress test. Stress protocol: Resting EKG demonstrates. Atrial fibrillation with controlled ventricular rate 95 bpm 0.4 mg of regadenoson was infused per usual protocol followed by rapid intravenous saline flush injection continuous EKG monitoring was performed. The maximum heart rate attained was 126 bpm which was 85% of maximum predicted heart . Stress EKG showed, no significant change from the resting EKG, with maximum heart rate of 126 bpm. Arrhythmia unifocal PVC Symptoms: Patient had no symptoms of chest pain Blood pressure at rest: [132/62 blood pressure at the end of stress: 124/62] Myocardial perfusion protocol. [15 mCi ]of Technetium 99m Sestamibi was injected at rest. [ 0.4 mg ]of Regadenoson was infused per usual protocol peak infusion[44.7 mCi ]of Technetium 99m sestamibi was injected. Stress images were obtained stress and rest images were reconstructed and compared in the short axis vertical and horizontal long axis. Gated images were also obtained Perfusion SPECT analysis: Review of the images demonstrate normal uptake of sestamibi at rest, post stress images demonstrate similar uptake of sestamibi to the resting images, homogeneous tracer uptake With no evidence of reversible myocardial ischemia. Gated SPECT analysis: The gated ejection fraction is [79 %]. Wall motion showed hyperdynamic left ventricle. Conclusion: Negative Lexiscan sestamibi myocardial perfusion study for reversible myocardial ischemia Hyperdynamic left ventricle. Amy Chavez MD,FACC,[facility]
--- NOTE | 2021-02-10 13:00 | NURSING ---
This RN is taking over care at this time.
--- NOTE | 2021-02-10 14:35 | PCM.DC ---
Discharge Instructions Diet Discharge Diet: No restrictions Activity Discharge Activity: Return to Normal Activity Weight Bearing Status: Weight bearing as tolerated Dressing / Incision Call your doctor if you observe: Fever of 101 or Higher, Numbness or Tingling, Shortness of breath, Dizziness, Chest pain, Increased palpitations (irregular heartbeat) and Calf discomfort Follow Up Care Please Follow Up With: Primary care provider When: Within the next two weeks. Test Results: Test results from this visit will be discussed in further detail at your follow-up appointment, if applicable. Discharge Plan Admission Admit Date/Time: 02/10/21 00:01 Primary Reason for Your Visit: Chest pain with radiation Attending Provider: Mya Chris Primary Care Provider: Rui Rea Discharge Orders/Prescriptions Prescriptions: Continued cholecalciferol (vitamin D3) 1,000 unit tablet 1,000 unit PO QDAY RF: 0 citalopram 20 mg Tablet 20 mg PO DAILY RF: 0 furosemide 40 mg tablet 40 mg PO DAILY Qty: 90 RF: 3 potassium chloride 10 mEq capsule, extended release 20 meq PO DAILY Qty: 60 RF: 11 Xarelto 20 mg tablet 20 mg PO QHS RF: 0 Hold Instructions: pacemaker procedure metoprolol tartrate 50 mg tablet 50 mg PO BID Qty: 60 RF: 4 Referrals / Follow Up: Reynlado Thapa MD [STAFF PHYSICIAN] - See Referral Note (Attend your scheduled Cardiology appointment after the new year. ) Rui Rea MD [Primary Care Provider] - Within 2 Weeks (Attend your scheduled primary care appointment after the new year. ) Disposition Disposition (needs filled in before D/C Order can be placed): Home, Self Care
--- NOTE | 2021-02-10 14:38 | DS.PCM_ITS ---
Documented by User: Sergio FRANKS 02/10/21 14:42 Providers Date of Admission: 02/10/21 Primary Care Physician: Dr. Rui Rea MD Reason For Visit: CHEST PAIN Diagnosis Discharge Diagnosis (1) Chest pain: Status: Acute Code(s): R07.9 - Chest pain, unspecified Medications at Discharge Home Medications cholecalciferol (vitamin D3) 25 mcg (1,000 unit) tablet 1,000 unit PO QDAY furosemide 40 mg tablet 40 mg PO DAILY #90 tab 12/20/20 potassium chloride 10 mEq capsule,extended release 20 meq PO DAILY #60 cap 01/10/21 rivaroxaban 20 mg tablet 20 mg PO QHS 01/21/21 metoprolol tartrate 50 mg tablet 50 mg PO BID #60 tab 01/24/21 citalopram 20 mg PO DAILY 02/09/21 Hospital Course Procedures Nuclear stress test Summary of Care Provided Minutes Spent on Discharge: 35 Hospital Course: Patient is a 75-year-old female who presented to the ED on the mercerizing range feeder of 02/10/2021 with a chief complaint of chest pain with radiation to the upper extremities and jaw. Patient was admitted for evaluation and possible management of acute coronary syndrome. High-sensitivity troponins were cycled and were found to not be elevated. Patient underwent nuclear stress test on 02/10 that was unremarkable and did not reveal any evidence of acute ischemia or infarction with preserved ejection fraction. Pacemaker was interrogated given recent implementation and pacemaker interrogation was found to be unremarkable. Patient is to discharge on home medications and is to follow-up with primary care provider and cardiology on previously scheduled appointments. Physical Exam Narrative Patient is a 75-year-old female comfortably resting in bed, alert and orient x3. Patient reports chest pain has resolved from admission. Denies development of any new symptoms overnight. Does not appear in acute distress. Const alert, oriented x3 and no apparent distress HEENT normocephalic, head/scalp atraumatic and hearing grossly normal bilaterally Eyes PERRL, EOMs intact bilaterally and conjunctivae normal Neck no lymphadenopathy, supple and no JVD Resp normal respiratory effort, no retractions, no use of accessory muscles and clear to auscultation bilaterally Cardio regular rate, regular rhythm, no murmurs and no JVD GI normal to inspection, nondistended, normoactive bowel sounds, soft to palpation and non-tender Extremity normal to inspection, full ROM and no clubbing, cyanosis or edema Skin no rashes or lesions noted, no wounds and skin turgor normal Neuro CN's II-XII intact bilaterally Psych affect normal Weight / BMI Weight Weight: 216 lb 0.848 oz Body Mass Index (BMI) 37.0 ABG / Lab / Microbiology Data Result Diagrams: 02/10/21 03:00 02/10/21 03:00 Laboratory: Laboratory Results - last 24 hr 02/09/21 20:42: WBC 8.8, RBC 5.15, Hgb 15.1 H, Hct 45.4, MCV 88.2, MCH 29.3, MCHC 33.3, RDW Std Deviation 40.5, RDW Coeff of Inderjit 12.4, Plt Count 211, MPV 9.2, Immature Gran % (Auto) 0.600, Neut % (Auto) 53.6, Lymph % (Auto) 36.5, [place] % (Auto) 7.3, Eos % (Auto) 1.7, Baso % (Auto) 0.3, Absolute Neuts (auto) 4.7, Absolute Lymphs (auto) 3.20, Nucleated RBC % 0 02/09/21 20:42: Sodium 139, Potassium 3.9, Chloride 103, Carbon Dioxide 25.0, Anion Gap 11, BUN 17, Creatinine 1.12 H, Estim Creat Clear Calc 38.63, Est GFR (MDRD) Af Amer 61, Est GFR (MDRD) Non-Af 51 L, BUN/Creatinine Ratio 15.2, Glucose 155 H, Calcium 9.9, Troponin I High Sens 6 02/09/21 22:40: Troponin I High Sens 6 02/10/21 03:00: WBC 8.9, RBC 4.80, Hgb 14.1, Hct 42.5, MCV 88.5, MCH 29.4, MCHC 33.2, RDW Std Deviation 40.9, RDW Coeff of Inderjit 12.5, Plt Count 198, MPV 9.4, Immature Gran % (Auto) 0.400, Neut % (Auto) 72.1 H, Lymph % (Auto) 20.8, [place] % (Auto) 5.8, Eos % (Auto) 0.6, Baso % (Auto) 0.3, Absolute Neuts (auto) 6.4, Absolute Lymphs (auto) 1.86, Nucleated RBC % 0 02/10/21 03:00: Sodium 139, Potassium 4.2, Chloride 107, Carbon Dioxide 24.0, Anion Gap 8, BUN 16, Creatinine 0.91, Estim Creat Clear Calc 47.55, Est GFR (MDRD) Af Amer 78, Est GFR (MDRD) Non-Af 65, BUN/Creatinine Ratio 17.6, Glucose 189 H, Calcium 9.4, Triglycerides 92, Cholesterol 150, LDL Cholesterol 86, VLDL Cholesterol 18, HDL Cholesterol 46 02/10/21 03:00: Troponin I High Sens 5 02/10/21 03:00: Triglycerides 181, Cholesterol 164, LDL Cholesterol 83, VLDL Cholesterol 36, HDL Cholesterol 45 Radiography Diagnostic Testing: Radiology Impression Chest X-Ray 02/09/21 20:52 IMPRESSION: Cardiomegaly without radiographic evidence of acute cardiopulmonary disease. at 2212 Reported and signed by: Yovanny Arciniega MD Electronically Signed: Yovanny Arciniega MD at 22:11 EST Tel , Service support , D/C Instructions Discharge Diet: No restrictions Weight Bearing Status: Weight bearing as tolerated Call your doctor if you observe: Fever of 101 or Higher, Numbness or Tingling, Shortness of breath, Dizziness, Chest pain, Increased palpitations (irregular heartbeat) and Calf discomfort Please Follow Up With: Primary care provider When: Within the next two weeks. Meaningful Use Info Meaningful Use Diagnoses (Choose all that apply): None applicable Discharge Plan Admission Admit Date/Time: 02/10/21 00:01 Primary Reason for Your Visit: Chest pain with radiation Attending Provider: Mya Chris Primary Care Provider: Rui Rea Discharge Orders/Prescriptions Prescriptions: Continued cholecalciferol (vitamin D3) 1,000 unit tablet 1,000 unit PO QDAY RF: 0 citalopram 20 mg Tablet 20 mg PO DAILY RF: 0 furosemide 40 mg tablet 40 mg PO DAILY Qty: 90 RF: 3 potassium chloride 10 mEq capsule, extended release 20 meq PO DAILY Qty: 60 RF: 11 Xarelto 20 mg tablet 20 mg PO QHS RF: 0 Hold Instructions: pacemaker procedure metoprolol tartrate 50 mg tablet 50 mg PO BID Qty: 60 RF: 4 Referrals / Follow Up: Reynaldo Thapa MD [STAFF PHYSICIAN] - See Referral Note (Attend your scheduled Cardiology appointment after the new year. ) Rui Rea MD [Primary Care Provider] - Within 2 Weeks (Attend your scheduled primary care appointment after the new year. ) Disposition Disposition (needs filled in before D/C Order can be placed): Home, Self Care Documented by User: Dr. Mya Chris MD 02/10/21 15:11 Providers Date of Admission: 02/10/21 Reason For Visit: CHEST PAIN Medications at Discharge Home Medications cholecalciferol (vitamin D3) 25 mcg (1,000 unit) tablet 1,000 unit PO QDAY 07/06/17 furosemide 40 mg tablet 40 mg PO DAILY #90 tab 12/20/20 potassium chloride 10 mEq capsule,extended release 20 meq PO DAILY #60 cap 01/10 rivaroxaban 20 mg tablet 20 mg PO QHS 01/21/21 metoprolol tartrate 50 mg tablet 50 mg PO BID #60 tab 01/24/21 citalopram 20 mg PO DAILY 02/09/21 ABG / Lab / Microbiology Data Result Diagrams: 02/10/21 03:00 02/10/21 03:00 Discharge Plan Admission Admit Date/Time: 02/10/21 00:01 Primary Reason for Your Visit: Chest pain with radiation Attending Provider: Mya Chris Primary Care Provider: Rui Rea Discharge Orders/Prescriptions Prescriptions: Continued cholecalciferol (vitamin D3) 1,000 unit tablet 1,000 unit PO QDAY RF: 0 citalopram 20 mg Tablet 20 mg PO DAILY RF: 0 furosemide 40 mg tablet 40 mg PO DAILY Qty: 90 RF: 3 potassium chloride 10 mEq capsule, extended release 20 meq PO DAILY Qty: 60 RF: 11 Xarelto 20 mg tablet 20 mg PO QHS RF: 0 Hold Instructions: pacemaker procedure metoprolol tartrate 50 mg tablet 50 mg PO BID Qty: 60 RF: 4 Referrals / Follow Up: Reynaldo Thapa MD [STAFF PHYSICIAN] - See Referral Note (Attend your scheduled Cardiology appointment after the new year. ) uRi Rea MD [Primary Care Provider] - Within 2 Weeks (Attend your scheduled primary care appointment after the new year. ) Disposition Disposition (needs filled in before D/C Order can be placed): Home, Self Care Charges/Coding Addendum Addendum: GOLDEN this patient was seen in conjunction with GOLDEN Bass. I have independently interviewed and examined the patient and reviewed pertinent historical, laboratory, and other data. Please refer to GOLDEN Bass's note for his patient's presentation, findings, and recommendations. I have reviewed and his note and concur with his documentation 75-year-old female with past medical history of chronic atrial fibrillation, status post pacemaker, IRON comes in with chest pain that was atypical. Patient's initial EKG showed no acute ST-T changes. Troponins were negative. She had a drop in her blood pressure in the ED that responded to fluids. She was admitted to the PCU, monitored on telemetry with no acute events. She underwent nuclear stress test also negative. Patient had a pacemaker check that was also unremarkable. 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
== END 2021-02-10 15:16 | disposition home or self-care (01) ==
LOC: ED 02-10 00:11 → PCU 02-10 00:19
PROVIDERS: Admitting Provider Hospitalist; Emergency Provider Emergency Medicine; PCP Family Medicine; Visit Provider Internal Medicine
DX: R07.89 Other chest pain (principal); Z95.0 Presence of cardiac pacemaker; I48.0 Paroxysmal atrial fibrillation; E78.5 Hyperlipidemia, unspecified; F41.9 Anxiety disorder, unspecified; F32.A Depression, unspecified; I10 Essential (primary) hypertension; K21.9 Gastro-esophageal reflux disease without esophagitis; G47.33 Obstructive sleep apnea (adult) (pediatric); Z79.899 Other long term (current) drug therapy; Z79.01 Long term (current) use of anticoagulants
CPT/HCPCS: 71045; 78452; 80048; 80061; 84484; 85025; 93005; 93017; 96361; 96374; 99218; 99285; A9500; J7040; A4216; G0378; J2405; J2785

== ENCOUNTER → 2021-07-06 | Outpatient (CLI) | payer MEDICARE, SELFPAY ==
--- NOTE | 2021-07-06 10:48 | BI_ITS ---
MAMMOGRAPHY - BILATERAL SCREENING REASON FOR EXAM: Female, 76 years old. Routine annual screening examination. PERTINENT HISTORY: Sister with breast cancer. TECHNIQUE: Digital bilateral breast olga lidia (3D mammographic acquisition) in the CC and MLO projections. 2-D mediolateral oblique (MLO) and craniocaudad (CC) views of both breasts were obtained. CAD: Full Field Digital Mammography with Computer Added Detection was performed. COMPARISON: Comparison is made with prior study dated 02/03/2020 and 07/29/2018. FINDINGS: Breast Composition: The breasts are almost entirely fatty. There are no dominant masses or suspicious calcifications. Stable benign-appearing bilateral axillary lymph nodes. No other significant abnormalities are identified. There has been no significant change since the prior study. BI/SCRN MAMM (CAD)W/OLGA LIDIA BILAT IMPRESSION: Stable bilateral screening mammogram. Yearly follow-up mammogram recommended. (A) ASSESSMENT CATEGORY: BIRADS Category 2: Benign. A letter regarding these results will be sent to the patient by the facility within 30 days. Approximately 10% of breast cancers are not detected by mammography. A normal mammogram should not delay biopsy of a clinically suspicious abnormality. [id number] Electronically Signed: Nacho Sierra MD at 12:08 EDT ,
== END | disposition home or self-care (01) ==
LOC: OPBI 10:36
PROVIDERS: PCP Family Medicine; Visit Provider Nurse Practitioner Women's Health
DX: Z12.31 Encounter for screening mammogram for malignant neoplasm of breast (principal); Z80.3 Family history of malignant neoplasm of breast
CPT/HCPCS: 77063; 77067

== ENCOUNTER → 2021-07-12 | Outpatient (CLI) | payer MEDICARE, SELFPAY ==
--- NOTE | 2021-07-12 15:22 | US_ITS ---
STUDY: ULTRASOUND TRANSVAGINAL CLINICAL: Female, 76 years old. Right lower quadrant pain. Intermittent pelvic pain. TECHNIQUE: Transvaginal COMPARISON: CT abdomen and pelvis May 31, 2020. FINDINGS: Uterus is anteverted in the midline and measures 6.5 x 4.8 x 3.1 cm. Endometrium measures 4 mm and is hyperechoic. Uterine fibroid measuring 1.2 x 0.7 x 0.5 cm. Normal uterine cervix. Ovaries not visualized. There is no free fluid in the pelvis. Limited images of the bladder are unremarkable. US/Transvaginal Non- IMPRESSION: Small uterine fibroid. Ovaries not visualized. Electronically Signed: Yovanny Hicks MD at 4:38 EDT Reading Location ID and State: [id number] / , Service support ,
== END | disposition home or self-care (01) ==
LOC: US 15:20
PROVIDERS: PCP Family Medicine; Visit Provider Nurse Practitioner Women's Health
DX: R10.31 Right lower quadrant pain (principal); R10.2 Pelvic and perineal pain
CPT/HCPCS: 76830

== ENCOUNTER 2021-07-15 22:32 | Emergency (ER) | payer MEDICARE, SELFPAY ==
[2021-07-15 22:34] VITALS: BP 133/112; PULSE 61; RESP 17; TEMP 36; O2SAT 95; BMI 38.7
[2021-07-15 22:36] VITALS: BP 133/112; PULSE 60; RESP 17; TEMP 36; O2SAT 95
--- NOTE | 2021-07-15 22:43 | EX.ED.DYSGE1 ---
HPI History of Present Illness Chief Complaint: General Illness Informant: patient and EMS Onset/Context/Timing Onset: Days (3) Context: Gradual Onset Timing: Continuous Quality: weak/malaise Location: all over Current Severity: Moderate Maximum Severity: Moderate Worsened by: walking Relieved by: rest Associated Symptoms Associated Symptoms: cough, myalgias, abd pain, n/v Narrative Narrative: Patient with the symptoms over the past 3 days, saw urgent care today and was diagnosed with COVID given a positive swab. She was prescribed no medications, she states they considered Paxil COVID but decided not to because of medications that she takes. She states that she has lightheadedness after exerting herself/walking across the house, she has had no near-syncope or syncope. No palpitations, chest pain, shortness of breath. She does have a cough, some vomiting, some epigastric and right upper quadrant pain that is intermittent. She has had prior cholecystectomy. She was vaccinated against COVID but did not end up having a booster because she was having cardiac issues around that time. She has a history of persistent atrial fibrillation for which she is on Xarelto, she has had no bleeding from anywhere recently or unilateral leg pain or swelling. No history of DVT or PE. She states she is breathing well. [facility] Medical History Anxiety Atrial fibrillation Atrophic vaginitis Back problem Cystocele with rectocele Depression Dysphagia Essential (primary) hypertension Family history of cardiovascular disease Family history of diabetes mellitus Fecal incontinence GERD (gastroesophageal reflux disease) History of detached retina repair HLD (hyperlipidemia) Hypokalemia Lichen sclerosus IRON (obstructive sleep apnea) Pacemaker Symptomatic bradycardia Home Medications cholecalciferol (vitamin D3) 25 mcg (1,000 unit) tablet 1,000 unit PO QDAY 07/06/17 [History Last Taken 02/09/21] furosemide 40 mg tablet 40 mg PO DAILY #90 tab 12/20/20 [Rx Last Taken 02/09/21] rivaroxaban 20 mg tablet 20 mg PO QHS 01/21/21 [History Last Taken 02/08/21] citalopram 20 mg PO DAILY 02/09/21 [History Last Taken 02/09/21] flecainide 150 mg tablet 150 mg PO Q12H 07/05/21 [History Last Taken Unknown] metoprolol tartrate 100 mg tablet 100 mg PO BID #180 tab 07/08/21 [Rx Last Taken Unknown] molnupiravir 800 mg PO Q12H 5 Days #40 cap 07/15/21 [Rx Last Taken Unknown] promethazine 25 mg PO Q6H PRN PRN #10 tablet 07/15/21 [Rx Last Taken Unknown] Allergy/AdvReac Type Severity Reaction Status Date / Time dronedarone [From Multaq] Allergy Severe ANAPHYLAXIS Verified 07/15/21 22:[facility] [place] codeine Allergy Intermediate PT UNSURE Verified 07/15/21 22:38 OF REACTION meloxicam [From Mobic] Allergy Intermediate PT UNSURE Verified 07/15/21 22:38 OF REACTION nitrofurantoin Allergy Intermediate PT UNSURE Verified 07/15/21 22:38 OF REACTION Penicillins Allergy Intermediate PT UNSURE Verified 07/15/21 22:38 OF REACTION sulfamethoxazole Allergy Intermediate PT UNSURE Verified 07/15/21 22:38 [From Bactrim] OF REACTION trimethoprim [From Bactrim] Allergy Intermediate PT UNSURE Verified 07/15/21 22:38 OF REACTION Family History Father Cancer Prostate cancer Mother Myocardial infarction Arthritis Sister Breast cancer Brother Diabetes CHF (congestive heart failure) Myocardial infarction Son Diabetes Other Family history of cardiovascular disease Family history of diabetes mellitus Surgical History History of cardioversion (07/21/19) History of cholecystectomy (1977) History of left heart catheterization (07/29/08) History of permanent cardiac pacemaker placement (01/17/21) History of tubal ligation (1981) Social History Smoking Status: Never smoker alcohol intake: never substance use type: does not use caffeine: No what type of physical activity do you participate in: walking frequency: 5-6 times per week seatbelt use: always do you feel safe at home: Yes additional social history: - retired ROS ROS ED Constitutional Constitutional ED: Reports anorexia, body ache(s), fatigue and malaise; Denies chills or fever(s) Eyes Eyes: Denies change in vision or diplopia ENT ENT ED: Denies rhinorrhea or sore throat Cardiovascular Cardiovascular: Denies chest pain or palpitations Respiratory/Chest Respiratory/Chest: Reports cough; Denies dyspnea Gastrointestinal Gastrointestinal: Reports as per HPI, abdominal pain, nausea and vomiting; Denies diarrhea, hematemesis, hematochezia or melena Genitourinary Genitourinary ED: Denies dysuria or hematuria Musculoskeletal Musculoskeletal: Denies back pain or neck pain Integumentary Denies abscess or rash Neurologic Neurologic: Denies headache(s), paresthesias or weakness Psychiatric Psychiatric: Denies anxiety or suicidal thoughts EXAM Physical Exam Const Vital Signs: 07/15/21 22:34 07/15/21 22:36 07/15/21 23:10 Temperature 96.8 F L 96.8 F L Temperature Source Temporal Temporal Pulse Rate 61 60 Respiratory Rate 17 17 Respiratory Effort Normal Blood Pressure 133/112 H 133/112 H Blood Pressure Mean 119 119 Pulse Ox 95 95 Oxygen Delivery Method Room Air Room Air Positive well nourished and well developed Constitutional Narrative: Well-appearing, conversive in full sentences General Appearance ED: well developed and NAD HEENT Reports moist mucous membranes normocephalic and atraumatic Eyes PERRL and EOMs intact bilaterally Neck full ROM and supple Resp normal respiratory effort and clear to auscultation bilaterally Cardio regular rate, regular rhythm and no murmurs Rate: Negative for tachycardic GI non-distended GI Narrative: Mildly tender epigastrium and right upper quadrant. Otherwise benign. No guarding or rebound tenderness. Auscultation: normoactive bowel sounds Palpation: soft Back/Spine no CVA tenderness General Back: other FROM Extremity normal to inspection and no calf tenderness General Extremety ED: Negative for edema, pulses abnormal or tenderness General Extremity: Negative for edema or pulses abnormal Neuro oriented x3, CN's II-XII intact bilaterally and no sensory deficits noted Sensorium / Orientation: awake and alert Motor Exam: strength 5/5 throughout Skin no rashes or lesions noted and no wounds MDM MDM MDM Narrative Medical decision making narrative: Labs are reassuringly normal. Patient was treated with IV fluids, Zofran, GI cocktail, and dicyclomine orally. On reevaluation she is feeling much better. She is tolerating oral fluids. Her abdominal pain/discomfort is resolved and after reexamining her, she is not tender where she was so before. I do not think she needs any CT imaging, I think this is functional upper GI pain, and she is doing much better. I looked at putting her on Paxil COVID, however she is on flecainide and therefore it is contraindicated. She does however meet criteria for Molnupiravir so I will prescribe her that and we did discuss that. Some of the side effects are symptoms she is already having, such as headache, nausea, vomiting, diarrhea. If that gets worse or intolerable, I recommend that she discontinue it. It seems she is on Lasix but does not have edema or CHF, maybe this is treating her blood pressure, she is not sure. I recommend discontinuing it temporarily while she is having trouble drinking fluids and vomiting. She is in agreement. Lab Data Attestation: I reviewed the patient's lab results. Labs: Laboratory Results - last 24 hr 07/15/21 07/15/21 22:40 22:40 WBC 7.5 RBC 4.47 Hgb 13.3 Hct 40.4 MCV 90.4 MCH 29.8 MCHC 32.9 RDW Std Deviation 44.2 H RDW Coeff of Inderjit 13.5 Plt Count 141 L MPV 11.2 Immature Gran % (Auto) 0.500 Neut % (Auto) 80.3 H Lymph % (Auto) 9.6 L Ferry % (Auto) 8.8 Eos % (Auto) 0.5 Baso % (Auto) 0.3 Absolute Neuts (auto) 6.0 Absolute Lymphs (auto) 0.72 L Nucleated RBC % 0 Sodium 137 Potassium 4.3 Chloride 109 H Carbon Dioxide 22.0 Anion Gap 6 BUN 13 Creatinine 1.12 H Estim Creat Clear Calc 38.05 Est GFR (MDRD) Af Amer 61 Est GFR (MDRD) Non-Af 51 L BUN/Creatinine Ratio 11.6 Glucose 156 H Calcium 9.2 Total Bilirubin 0.70 AST 38 H ALT 54 Alkaline Phosphatase 94 Total Protein 6.7 Albumin 3.3 Globulin 3.4 Albumin/Globulin Ratio 1.0 Lipase 71 L Discharge Plan Triage Chief Complaint: General Illness ED Provider: Neftaly Patel Dx/Rx/DC Orders Clinical Impression: COVID-19, Acute upper abdominal pain, Nausea & vomiting Instructions: Coronavirus Disease 2019 (COVID-19): Caring for Yourself or Others Prescriptions: New molnupiravir 200 mg capsule 800 mg PO Q12H 5 Days Qty: 40 RF: 0 promethazine 25 mg tablet 25 mg PO Q6H PRN PRN (Reason: Nausea) Qty: 10 RF: 0 No Action cholecalciferol (vitamin D3) 1,000 unit tablet 1,000 unit PO QDAY RF: 0 flecainide 150 mg tablet 150 mg PO Q12H RF: 0 citalopram 20 mg Tablet 20 mg PO DAILY RF: 0 furosemide 40 mg tablet 40 mg PO DAILY Qty: 90 RF: 3 Xarelto 20 mg tablet 20 mg PO QHS RF: 0 Hold Instructions: pacemaker procedure metoprolol tartrate 100 mg tablet 100 mg PO BID Qty: 180 RF: 3 Primary Care Provider: Rui Rea Referrals: Rui Rea MD [Primary Care Provider] - 1 Week if not improving Disposition Disposition: Home, Self Care
[2021-07-15 22:57] LABS: Absolute Lymphocyte Count 0.72 X10^3/uL (0.83-4.51); Basophil# 0.02 X10^3/uL; Basophil% 0.3 % (0-1); Eosinophil# 0.04 X10^3/uL; Eosinophils% 0.5 % (0-5); Hematocrit 40.4 % (37-47); Hemoglobin 13.3 g/dL (12.0-15.0); Lymphocyte # 0.72 X10^3/ul (0.83-4.51); Lymphocyte % 9.6 % (19-41); Mean Corp Hgb Conc 32.9 g/dL (32-36); Mean Corpuscular Hgb 29.8 pg (27.0-32.0); Mean Corpuscular Volume 90.4 fL (81-99); Mean Platelet Vol. 11.2 fl (6.2-12.0); Monocyte# 0.66 X10^3/uL; Monocyte% 8.8 % (0-10); NRBC Flagged by Analyzer 0 % (0-5); Neutrophil # 6.04 X10^3/uL (2.7-7.7); Neutrophil % 80.3 % (47-70); Platelet Count 141 K/mm3 (150-450); RBC Distribution Width CV 13.5 % (11.6-14.6); RBC Distribution Width SD 44.2 fl (35.1-43.9); Red Blood Count 4.47 M/mm3 (4.2-5.4); White Blood Count 7.5 K/mm3 (4.4-11.0)
[2021-07-15] MEDS: 0.9% Normal Saline 1,000 ML 1000 ML IV (23:02)
[2021-07-15] MEDS: Ondansetron 4 MG/2 ML Vial IV (23:02)
[2021-07-15] MEDS: Dicyclomine 10 MG Capsule 20 MG PO (23:03)
[2021-07-15] MEDS: Mag Hydrox/Al Hydrox/Simeth 30 ML UDC PO (23:03)
[2021-07-15 23:13] LABS: AST(SGOT) 38 U/L (15-37); Alanine Aminotransfer ALT/SGPT 54 U/L (13-56); Albumin, Serum 3.3 g/dL (3.2-5.0); Alkaline Phosphatase 94 U/L (45-117); Anion Gap 6 (5-15); BUN 13 mg/dL (7-18); BUN/Creat Ratio 11.6 RATIO (10-20); Calcium,Total 9.2 mg/dL (8.5-10.1); Chloride 109 mmol/L (98-107); Creatinine, Serum 1.12 mg/dL (0.55-1.02); EST Glomerular Filtration Rate 51 mL/min (>60); Est Glom Filt Rate - Afr Amer 61 mL/min (>60); Estimated Creatinine Clearance 38.05 ml/min; Globulin 3.4 g/dL (2.2-4.2); Glucose 156 mg/dL (74-106); Lipase 71 U/L (73-393); Potassium 4.3 mmol/L (3.5-5.1); Protein, Total 6.7 g/dL (6.4-8.2); Sodium Level 137 mmol/L (136-145)
[2021-07-16 00:37] VITALS: BP 135/114; PULSE 157
== END 2021-07-16 00:38 | disposition home or self-care (01) ==
PROVIDERS: Emergency Provider Emergency Medicine; PCP Family Medicine; Visit Provider Emergency Medicine
DX: U07.1 COVID-19 (principal); I48.91 Unspecified atrial fibrillation; R10.10 Upper abdominal pain, unspecified; R11.2 Nausea with vomiting, unspecified; I10 Essential (primary) hypertension; G47.33 Obstructive sleep apnea (adult) (pediatric); F41.9 Anxiety disorder, unspecified; F32.A Depression, unspecified; Z95.0 Presence of cardiac pacemaker; Z79.899 Other long term (current) drug therapy
CPT/HCPCS: 80053; 83690; 85025; 96374; 99285; A4216; J2405

== ENCOUNTER 2021-10-07 09:52 | Emergency (ER) | payer MEDICARE, SELFPAY ==
[2021-10-07 09:53] VITALS: BP 138/110; PULSE 60; RESP 16; TEMP 36.8; O2SAT 94; BMI 38.5
--- NOTE | 2021-10-07 10:00 | EDS_ITS ---
HPI History of Present Illness Chief Complaint: Lower Extremity Injury Informant: patient and EMS Onset/Context/Timing Onset: Today (JPTA) Context: Sudden Onset Timing: Continuous Quality of Pain: Aching Location: R ankle Current Severity: Mild Maximum Severity: Severe Worsened by: Movement Relieved by: Remaining still Associated Symptoms Associated Symptoms: Positive for Loss of Funtion (Unable to bear weight right lower extremity prior to arrival); Negative for Parasthesia or Weakness Narrative Narrative: Patient was at home, she lives with family but currently by herself because they are on vacation, she has 2 small dogs and she was at the refrigerator took a step back accidentally stepping on one of their toys, this caused her to fall. She fell to her knees but mostly twisted and injured her right ankle. Her knees are sore but not in severe pain. Not able to bear weight regarding her right ankle, called EMS. [facility] Medical History Anxiety Atrial fibrillation Atrophic vaginitis Back problem Cystocele with rectocele Depression Dysphagia Essential (primary) hypertension Family history of cardiovascular disease Family history of diabetes mellitus Fecal incontinence GERD (gastroesophageal reflux disease) History of detached retina repair HLD (hyperlipidemia) Hypokalemia Lichen sclerosus IRON (obstructive sleep apnea) Pacemaker Symptomatic bradycardia Home Medications cholecalciferol (vitamin D3) 25 mcg (1,000 unit) tablet 1,000 unit PO QDAY supplement 07/06/17 [History Last Taken 02/09/21] rivaroxaban 20 mg tablet (Xarelto) 20 mg PO QHS 01/21/21 [History Last Taken 02/08/21] citalopram 20 mg tablet 20 mg PO DAILY 02/09/21 [History Last Taken 02/09/21] flecainide 150 mg tablet 150 mg PO Q12H 07/05/21 [History Last Taken Unknown] metoprolol tartrate 100 mg tablet 100 mg PO BID #180 tabs 07/08/21 [Rx Last Taken Unknown] furosemide 40 mg tablet 40 mg PO .PRN PRN SOB #90 tabs 08/09/21 [Rx Last Taken Unknown] Allergy/AdvReac Type Severity Reaction Status Date / Time [facility] Allergy Severe ANAPHYLAXIS Verified 10/07/21 10:[facility] [place] codeine Allergy Intermediate PT UNSURE Verified 10/07/21 10:02 OF REACTION meloxicam [From Mobic] Allergy Intermediate PT UNSURE Verified 10/07/21 10:02 OF REACTION nitrofurantoin Allergy Intermediate PT UNSURE Verified 10/07/21 10:02 OF REACTION Penicillins Allergy Intermediate PT UNSURE Verified 10/07/21 10:02 OF REACTION sulfamethoxazole Allergy Intermediate PT UNSURE Verified 10/07/21 10:02 [From Bactrim] OF REACTION trimethoprim [From Bactrim] Allergy Intermediate PT UNSURE Verified 10/07/21 10:02 OF REACTION Family History Father Cancer Prostate cancer Mother Myocardial infarction Arthritis Sister Breast cancer Brother Diabetes CHF (congestive heart failure) Myocardial infarction Son Diabetes Other Family history of cardiovascular disease Family history of diabetes mellitus Surgical History History of cardioversion (07/21/19) History of cholecystectomy (1977) History of left heart catheterization (07/29/08) History of permanent cardiac pacemaker placement (01/17/21) History of tubal ligation (1981) Social History Smoking Status: Never smoker alcohol intake: never substance use type: does not use caffeine: No what type of physical activity do you participate in: walking frequency: 5-6 times per week seatbelt use: always do you feel safe at home: Yes additional social history: - retired ROS ROS ED Constitutional Constitutional ED: Denies chills or fever(s) Eyes Eyes: Denies change in vision or diplopia ENT ENT ED: Denies rhinorrhea or sore throat Cardiovascular Cardiovascular: Denies chest pain or palpitations Respiratory/Chest Respiratory/Chest: Denies cough or dyspnea Gastrointestinal Gastrointestinal: Denies abdominal pain, diarrhea, nausea or vomiting Genitourinary Genitourinary ED: Denies dysuria or hematuria Musculoskeletal Musculoskeletal: Reports extremity pain; Denies neck pain Integumentary Denies Abrasions, rash or wounds Neurologic Neurologic: Denies paresthesias or weakness Psychiatric Psychiatric: Denies anxiety or suicidal thoughts EXAM Physical Exam Const Vital Signs: 10/07/21 09:53 Temperature 98.2 F Temperature Source Oral Pulse Rate 60 Respiratory Rate 16 Blood Pressure 138/110 H Blood Pressure Mean 119 Pulse Ox 94 Oxygen Delivery Method Room Air Positive well nourished and well developed General Appearance ED: well developed and NAD HEENT Reports moist mucous membranes normocephalic and atraumatic Eyes PERRL and EOMs intact bilaterally Neck full ROM and supple Resp normal respiratory effort and clear to auscultation bilaterally GI non-tender and non-distended Auscultation: normoactive bowel sounds Palpation: soft Narrative: Pelvis stable AP compression without tenderness or pain Back/Spine normal ROM and normal to inspection General Back: other FROM Extremity Extremity Narrative: Swollen right ankle mostly laterally, tender both malleoli, very limited range of motion due to pain and swelling, no gross deformities, neurovascularly intact distally. Mild tenderness at small contusions both anterior knees at the lower poles of the patella bilaterally, no tibial tuberosity tenderness, lateral or medial joint line tenderness, no effusions, great range of motion both knees, all ligaments intact and stable with short endpoints on stressing. General Extremety ED: Negative for edema or pulses abnormal General Extremity: Negative for edema or pulses abnormal Neuro oriented x3, no focal motor deficits and no sensory deficits noted Sensorium / Orientation: alert Motor Exam: strength 5/5 throughout Psych mental status grossly normal and thought process normal Skin no wounds Skin Narrative: Right lower extremity skin intact. Rashes: no rashes MDM MDM MDM Narrative Medical decision making narrative: Three-view x-ray series of the right ankle is negative for any acute fracture. Radiology in agreement. There is a significant amount of soft tissue noted around the lateral malleolus, likely magnified due to the fact she is on Xarelto. This is mostly consistent with at least a moderate sprain. She is placed in an Aircast, she will be offered crutches, she received IV fentanyl from EMS and does not require any analgesics acutely right now. We will make sure she can safely get around prior to discharge home, given appropriate discharge instructions. She is in agreement that she does not require x-rays of her knees, she is able to move them fully and well without evidence of significant trauma. She also did not hit her head and does not require any head or neck imaging. Radiography Diagnostic Testing: Clinical Impression(s) from Imaging Studies Ankle X-Ray 10/07/21 10:05 IMPRESSION: Diffuse soft tissue swelling overlying the lateral malleolus. No fracture is seen. Electronically Signed: Nacho Sierra MD at 10:23 EDT , Discharge Plan Triage Chief Complaint: Lower Extremity Injury ED Provider: Neftaly Patel Dx/Rx/DC Orders Clinical Impression: Right ankle sprain, Fall from slip, trip, or stumble Instructions: ED Ankle Sprain (Adult) Prescriptions: No Action cholecalciferol (vitamin D3) 1,000 unit tablet 1,000 unit PO QDAY flecainide 150 mg tablet 150 mg PO Q12H citalopram 20 mg Tablet 20 mg PO DAILY Xarelto 20 mg tablet 20 mg PO QHS Hold Instructions: pacemaker procedure Rx Instructions: must administer with evening meal metoprolol tartrate 100 mg tablet 100 mg PO BID Qty: 180 3RF furosemide 40 mg tablet 40 mg PO .PRN PRN (Reason: SOB) Qty: 90 3RF Primary Care Provider: Rui Rea Referrals: Rui Rea MD [Primary Care Provider] - 10-14 Days if not better (Should be improving by 2 weeks, use Aircast for as long as you feel you need, it will increase stability. Crutches or cane or walker as needed to help you get around.) Disposition Disposition: Home, Self Care
--- NOTE | 2021-10-07 10:05 | RAD_ITS ---
STUDY: X-RAY - RIGHT ANKLE REASON FOR EXAM: Female, 76 years old. Lateral swelling and pain following a twisting injury. TECHNIQUE: 3 view(s) of the ankle. COMPARISON: None. FINDINGS: Normal visualized distal tibia and fibula. Normal medial and lateral malleoli. Normal tibiotalar articulation and ankle mortise. Plantar spur. The visualized subtalar, talonavicular, calcaneocuboid and tarsal articulations are normal. Diffuse soft tissue swelling overlying the lateral malleolus. RAD/Ankle min 3 Views IMPRESSION: Diffuse soft tissue swelling overlying the lateral malleolus. No fracture is seen. Electronically Signed: Nacho Sierra MD at 10:23 EDT ,
[2021-10-07 11:32] VITALS: BP 141/75; PULSE 60; RESP 18; O2SAT 97
== END 2021-10-07 11:50 | disposition home or self-care (01) ==
PROVIDERS: Emergency Provider Emergency Medicine; PCP Family Medicine; Visit Provider Emergency Medicine
DX: S93.401A Sprain of unspecified ligament of right ankle, initial encounter (principal); I48.91 Unspecified atrial fibrillation; W01.0XXA Fall on same level from slipping, tripping and stumbling without subsequent striking against object, initial encounter; Y92.000 Kitchen of unspecified non-institutional (private) residence as the place of occurrence of the external cause; F41.9 Anxiety disorder, unspecified; F32.A Depression, unspecified; I10 Essential (primary) hypertension; E78.5 Hyperlipidemia, unspecified; G47.33 Obstructive sleep apnea (adult) (pediatric); Z95.0 Presence of cardiac pacemaker; Z79.01 Long term (current) use of anticoagulants; Z79.899 Other long term (current) drug therapy
CPT/HCPCS: 73610; 99284

== ENCOUNTER → 2021-11-09 | Outpatient (CLI) | payer MEDICARE, SELFPAY ==
--- NOTE | 2021-11-09 08:42 | BD_ITS ---
STUDY: DUAL ENERGY X-RAY ABSORPTIOMETRY / DXA REASON FOR EXAM: Female, 76 years old. [id number] TECHNIQUE: Bone Mineral Density (BMD) measurements of lumbar spine and bilateral hips were obtained. COMPARISON: Comparison is made with prior study dated 01/21/2019. FINDINGS: Lumbar Spine (L1-L4): g/cm2 (1.073) / T-score (0.4) / Z-score (2.7) Findings are suggestive of normal bone density with a low fracture risk. Left Femur Total: g/cm2 (0.865) / T-score (-0.6) / Z-score (1.1) Left Femoral Neck: g/cm2 (0.681) / T-score (-1.5) / Z-score (0.5) Right Femur Total: g/cm2 (0.836) / T-score (-0.9) / Z-score (0.9) Right Femoral Neck: g/cm2 (0.700) / T-score (-1.3) / Z-score (0.7) The T-Scores on the most recent prior examination were: Lumbar Spine (L1-L4): There has been worsening of bone density since the previous examination. Left Femur Total: which represents a worsening of 7.9%. Right Femur Total: which represents a worsening of 6.9%. BD/Dexa Bone Density Study IMPRESSION: The patient is considered osteopenic as outlined below according to World Dylan Organization (WHO) criteria with a low fracture risk. There has been of bone density since the previous examination. Reference Information: The T-score is the number of standard deviations above or below the standard which is normal for young adults at their peak bone mineral density. The World Health Organization (WHO) interprets the T-scores as follows: Above -1 Normal bone density Between -1 and -2.5 Osteopenia Equal to / or below -2.5 Osteoporosis As a practical clinical guideline, osteopenia may be graded as follows: Mild -1 through -1.5 Moderate -1.6 through -2.0 Severe -2.1 through -2.4 The Z-score is the number of standard deviations above or below age-matched controls. A Z-score of less than -1.5 would be considered abnormal. References: 1. NIH Osteoporosis and Related Bone Diseases www osteo.org 2. International Society for Clinical Densitometry www iscd.org 3. National Osteoporosis Foundation www nof.org Electronically Signed: Nacho Sierra MD at 15:34 EDT ,
== END | disposition home or self-care (01) ==
PROVIDERS: PCP Family Medicine; Referring Provider Student in an Organized Health Care Education/Training Program; Visit Provider Student in an Organized Health Care Education/Training Program
DX: M81.0 Age-related osteoporosis without current pathological fracture (principal)
CPT/HCPCS: 77080

== ENCOUNTER → 2022-01-17 | Outpatient (CLI) | payer MEDICARE, SELFPAY ==
--- NOTE | 2022-01-17 08:26 | RAD_ITS ---
EXAMINATION: UPPER GI and esophagram SERIES INDICATION: Female, 76 years difficulty swallowing. FLUOROSCOPY TIME (if supplied): (0:40) minutes/seconds. 24 images were obtained. TECHNIQUE: Radiographic and fluoroscopic images of the distal esophagus, stomach, and proximal small intestine were obtained following the oral ingestion of barium. COMPARISON: None. FINDINGS: There is no evidence for organomegaly, abnormal calcifications, or abnormal bowel gas pattern. The psoas margins and flank stripes are normal. Degenerative changes of the visualized dorsal spine. The mucosa of the esophagus, stomach and duodenum is normal in appearance without evidence for stricture, ulceration, mass or diverticulum. A small sliding hiatal hernia. No evidence of reflux at this time. The patient ingested a 12 mm tablet of barium without any difficulty.. RAD/Upper GI w/BA Swallow IMPRESSION: 1. Small sliding hernia without gastroesophageal reflux. Electronically Signed: Nacho Sierra MD at 15:14 EST ,
== END | disposition home or self-care (01) ==
LOC: RAD 08:25
PROVIDERS: PCP Family Medicine; Visit Provider Family Medicine
DX: R10.13 Epigastric pain (principal)
CPT/HCPCS: 74246

== ENCOUNTER → 2022-01-20 | Outpatient (CLI) | payer MEDICARE, SELFPAY | END | disposition home or self-care (01) | LOC: LABSPEC 10:10 | PROVIDERS: PCP Family Medicine; Visit Provider Family Medicine | DX: N39.0 Urinary tract infection, site not specified (principal) | CPT/HCPCS: 87086; 87088 ==

== ENCOUNTER → 2022-02-21 | Outpatient (CLI) | payer MEDICARE, SELFPAY ==
--- NOTE | 2022-02-21 | CYSPIN_PTH ---
PATIENT: SAVANNA MCDONOUGH LOC: [facility] U#:[id number] AGE/SX: 76/F ROOM: RE02/21/[address]: Dr. Ninfa Mejia MD : 1945 BED: DIS: 02/21/2022 SPEC #: [id number] RECD: 02/21/22 15:00 STATUS: FAITH ANDREWS #: [id number] IVELISSE: 02/21/22 00:[address]: Ninfa Mejia DEPT: CYTOLOGY RECD BY: iNels Martinez ENTERED: 02/22/22 07:51 SP TYPE: CYSPIN FL OTHR DR: Dr. Rui Rea MD Tissues: Urine Procedures: Pap Stain (control) Special Stain Group II Cytospin Fluid HEADER OPERATION: Not noted PRE-OP DIAGNOSIS: Gross hematuria TISSUE SUBMITTED: Urine for cytology DIAGNOSIS CYTOLOGY Urine for cytology (cytospin): Negative for high-grade urothelial carcinoma (NHGUC), Diane System Category II. Acute inflammation. See comment. SJ:ramonita 02/22/2022 COMMENT Clinical correlation and appropriate follow up are necessary. The Diane System for urine cytology diagnostic categorization was used in the evaluation of this case. CYTOLOGY STUDY Slides are reviewed. CYTOLOGY GROSS Received is 30 ml of yellow cloudy fluid labeled with the patient's name and and designated per the requisition as urine. Submitted for cytology preparation. / ramonita 02/21/2022 TC:2 CPT: 58159
[2022-02-21 12:43] LABS: Anion Gap 5 (5-15); BUN 18 mg/dL (7-18); BUN/Creat Ratio 14.5 RATIO (10-20); Calcium,Total 9.8 mg/dL (8.5-10.1); Chloride 104 mmol/L (98-107); Creatinine, Serum 1.24 mg/dL (0.55-1.02); EST Glomerular Filtration Rate 45 mL/min (>60); Est Glom Filt Rate - Afr Amer 54 mL/min (>60); Glucose 148 mg/dL (74-106); Potassium 4.4 mmol/L (3.5-5.1); Sodium Level 138 mmol/L (136-145)
[2022-02-21 17:52] LABS: Cytology, Body Fluid / CSF SEE PATHOLOGY REPORT
== END | disposition home or self-care (01) ==
PROVIDERS: PCP Family Medicine; Referring Provider Urology; Visit Provider Urology
DX: R31.0 Gross hematuria (principal)
CPT/HCPCS: 36415; 80048; 88108; 88313

== ENCOUNTER → 2022-02-24 | Outpatient (CLI) | payer MEDICARE, SELFPAY ==
--- NOTE | 2022-02-24 15:55 | US_ITS ---
INDICATION: GROSS HEMATURIA EXAMINATION: Ultrasound US Transvaginal Non-OB TECHNIQUE: Transvaginal pelvic ultrasound was performed. Grayscale, spectral waveform, and color flow Doppler evaluation of the adnexa. COMPARISON: None. FINDINGS: UTERUS: Anteverted. The uterus measures 6.7 x 5 x 3.3 cm. There is no uterine mass. The endometrial stripe measures 5 in AP diameter which is within normal limits. RIGHT OVARY: Not visualized. LEFT OVARY: Not visualized. FREE FLUID: None. The bladder is not well distended and difficult to accurately evaluate on this exam. It has a prevoid volume of 44 cc. US/Transvaginal Non- IMPRESSION: 1. Nonvisualization of both ovaries. 2. The bladder is not well distended and difficult to evaluate. 3. No pelvic mass is seen. Electronically Signed: Elliot Alvarenga MD at 15:45 EST ,
== END | disposition home or self-care (01) ==
LOC: US 15:54
PROVIDERS: PCP Family Medicine; Referring Provider Urology; Visit Provider Urology
DX: R31.0 Gross hematuria (principal)
CPT/HCPCS: 76830

== ENCOUNTER → 2022-03-06 | Outpatient (CLI) | payer MEDICARE, SELFPAY ==
--- NOTE | 2022-03-06 13:56 | CT_ITS ---
STUDY: CT ABDOMEN AND PELVIS WITH AND WITHOUT CONTRAST REASON FOR EXAM: Female, 76 years old. GROSS HEMATURIA RADIATION DOSAGE (If Supplied By Facility): CTDIvol = ( 25.87 ) mGy, DLP = ( 3806.21 ) mGycm TECHNIQUE: Transaxial images were obtained from the dome of the diaphragm to the symphysis pubis without oral contrast. IV 100mL Isovue-370 was administered. Sagittal and coronal images were reconstructed. Individualized dose optimization techniques were used for this CT. COMPARISON: None. FINDINGS: Stable mild linear scarring at the right lung base. A dual-chamber pacemaker is seen. There is decreased attenuation of the liver consistent with steatosis. There are surgical clips in the gallbladder fossa consistent with a prior cholecystectomy. Normal spleen. Normal pancreas. Normal bilateral adrenal glands. 3 mm nonobstructive calculus in the midpole calyx of the right kidney. Normal left kidney. Normal visualized stomach. Normal small intestine. There are multiple colonic diverticula consistent with diverticulosis. The appendix is visualized and appears normal. There is scattered atherosclerotic calcification of the abdominal aorta, without a demonstrated aneurysm. Normal inferior vena cava. Normal retroperitoneum. Normal urinary bladder. Small bilateral inguinal and is containing fat. There are degenerative changes of the visualized lumbar spine. CT/CT Abd/Pelvis W/WO Contrast IMPRESSION: 3 mm nonobstructive calculus in the midpole calyx of the right kidney. Electronically Signed: Nacho Sierra MD at 15:44 EST ,
== END | disposition home or self-care (01) ==
PROVIDERS: PCP Family Medicine; Referring Provider Urology; Visit Provider Urology
DX: R31.0 Gross hematuria (principal)
CPT/HCPCS: 74178; Q9967

== ENCOUNTER → 2022-05-03 | Outpatient (CLI) | payer MEDICARE, SELFPAY ==
--- NOTE | 2022-05-03 10:12 | RAD_ITS ---
STUDY: X-RAY - THORACIC SPINE REASON FOR EXAM: Female, 77 years old. PAIN TECHNIQUE: 3 view(s) of the thoracic spine were obtained. COMPARISON: None. FINDINGS: Normal kyphosis of the thoracic spine. There is no substantial scoliosis. Normal thoracic vertebrae and endplates. There is multilevel disc space narrowing of the thoracic spine. The soft tissue structures are unremarkable. RAD/Thoracic Spine 3 Views IMPRESSION: Age consistent degenerative changes, no acute findings Electronically Signed: Artie Christian MD at 10:41 EDT ,
--- NOTE | 2022-05-03 10:15 | RAD_ITS ---
STUDY: X-RAY - LUMBAR SPINE REASON FOR EXAM: Female, 77 years old. PAIN TECHNIQUE: 4 view(s) of the lumbar spine were obtained. COMPARISON: None FINDINGS: Normal lumbar lordosis. There is a mild levoscoliosis of the lumbar spine. There is a normal alignment of the vertebrae in the lateral view. There is multilevel endplate spondylosis of the lumbar vertebrae. There is multi-level degenerative disc disease with multi-level disc space narrowing. There is no demonstrated fracture. There is atherosclerotic calcification of the abdominal aorta without a demonstrated aneurysm. RAD/L/S Spine Min 4 Views IMPRESSION: Degenerative changes of the spine, as detailed above. Mild levoscoliosis Electronically Signed: Artie Christian MD at 10:42 EDT ,
== END | disposition home or self-care (01) ==
LOC: RAD 10:10
PROVIDERS: PCP Family Medicine; Referring Provider Family Medicine; Visit Provider Family Medicine
DX: M54.6 Pain in thoracic spine (principal); M54.50 Low back pain, unspecified
CPT/HCPCS: 72072; 72110

== ENCOUNTER 2022-06-08 07:24 | Day surgery (SDC) | payer MEDICARE, SELFPAY ==
[2022-06-08] VITALS (10 sets, daily range): BP systolic 81–133; BP diastolic 57–75; PULSE 59–72; RESP 16–18; TEMP 36.5–37; O2SAT 92–100; BMI 39.4
[2022-06-08] MEDS: Lactated Ringers 1,000 ML 15 ML IV (07:55)
[2022-06-08] MEDS: Cefazolin 2 GM in 0.9% Normal Saline 100 ML IV (08:30)
--- NOTE | 2022-06-08 08:34 | DCINST_ITS ---
Discharge Instructions Diet Discharge Diet: No restrictions Activity Discharge Activity: Return to Normal Activity Dressing / Incision Call your doctor if you observe: Fever of 101 or Higher, Inability to urinate and Inability to have a bowel movement Follow Up Care Please Follow Up With: Ninfa Mejia MD When: call office for appt Test Results: Test results from this visit will be discussed in further detail at your follow- up appointment, if applicable. Discharge Plan Admission Attending Provider: Ninfa Mejia Primary Care Provider: Bria Spencer Discharge Orders/Prescriptions Prescriptions: New oxycodone-acetaminophen [Percocet] 5-325 mg tablet 1 tab PO Q8H PRN (Reason: pain) 3 Days Qty: 10 0RF cephalexin [cephalexin] 500 mg capsule 500 mg PO Q12 3 Days Qty: 6 0RF phenazopyridine [Pyridium] 200 mg tablet 200 mg PO TID PRN PRN (Reason: Bladder Spasms) 7 Days Qty: 30 0RF Continued cholecalciferol (vitamin D3) 1,000 unit tablet 1,000 unit PO QDAY citalopram 20 mg Tablet 20 mg PO DAILY metoprolol tartrate 100 mg tablet 100 mg PO BID Qty: 180 3RF furosemide 40 mg tablet 40 mg PO .PRN PRN (Reason: SOB) Qty: 90 3RF Xarelto 20 mg tablet 20 mg PO QHS Qty: 90 3RF Hold Instructions: pacemaker procedure Rx Instructions: must administer with evening meal flecainide 150 mg tablet 150 mg PO Q12H Qty: 180 3RF Referrals / Follow Up: Bria Spencer MD [Primary Care Provider] - Disposition Disposition (needs filled in before D/C Order can be placed): Home, Self Care
--- NOTE | 2022-06-08 08:55 | CYSPIN_PTH ---
PATIENT: SAVANNA MCDONOUGH LOC: [facility] [place] U#:[id number] AGE/SX: 77/F ROOM: RE06/08/[address]: Dr. Ninfa Mejia MD : 1945 BED: DIS: 06/08/2022 SPEC #: [id number] RECD: 06/08/22 09:26 STATUS: FAITH JULIANA #: [id number] IVELISSE: 06/08/22 08:[address]: Ninfa Mejia DEPT: CYTOLOGY RECD BY: Selena Barrett ENTERED: 06/08/22 10:41 SP TYPE: CYSPIN FL OTHR DR: Dr. Bria Spencer MD Tissues: A - Kidney, NOS B - Kidney, NOS Procedures: Pap Stain (control) Special Stain Group II Cytospin Fluid HEADER OPERATION: Cystoscopy, bilateral ureteroscopy, selective cytology PRE-OP DIAGNOSIS: Right kidney stone, hematuria TISSUE SUBMITTED: A ? Right kidney fluid for cytology, B ? Left kidney fluid for cytology DIAGNOSIS CYTOLOGY A. Right kidney fluid for cytology (cytospin): Negative for high-grade urothelial carcinoma (NHGUC), Diane System Category II. See comment. B. Left kidney fluid for cytology (cytospin): Negative for high-grade urothelial carcinoma (NHGUC), Diane System Category II. See comment. SJ:ramonita 06/08/2022 COMMENT A & B. The smears are cellular and consists of clusters of urothelial cells. Correlation with clinical findings and appropriate follow up are necessary. The Diane System for urine cytology diagnostic categorization was used in the evaluation of this case. CYTOLOGY STUDY Slides are reviewed. CYTOLOGY GROSS A - Received is 7 ml of cloudy colorless fluid labeled with the patient's name and and designated per the requisition as right kidney. Submitted for cytology preparation. B - Received is 7 ml of cloudy colorless fluid labeled with the patient's name and and designated per the requisition as left kidney. Submitted for cytology preparation. / ramonita 06/08/2022 TC:5 CPT: 86993 x2
[2022-06-08 10:08] LABS: Cytology, Body Fluid / CSF SEE PATHOLOGY REPORT
[2022-06-08 10:08] LABS: Cytology, Body Fluid / CSF SEE PATHOLOGY REPORT
[2022-06-08] MEDS: Ketorolac 30 MG/ML Syringe IV (10:35)
--- NOTE | 2022-06-08 12:48 | OP.PCM_ITS ---
Report of Operation Date of Procedure: 06/08/22 Pre-Operative Diagnosis: Gross hematuria, right renal calculus Post-Operative Diagnosis: Same Surgery/Procedure Performed:: Cystoscopy, left diagnostic ureteroscopy, right ureteroscopy with holmium laser lithotripsy, right ureteral stent insertion, bilateral washings for selective cytology Surgeon: Ninfa Mejia Type of Anesthesia: General Specimen's removed: Bilateral urine for cytology Description of Procedure: The patient is a 77-year-old female who presented to the office for evaluation of hematuria. She was found on CT scan to have a 3 to 4 mm right mid renal calculus. The decision was made to take her to the operating room for evaluation of her urinary tract and management of her kidney stone. Informed c onsent was obtained. The patient was taken to the operating room and placed on the operating room table. Anesthesia monitored the head, neck, airway, IV access and vital signs throughout the case. Once anesthesia was appropriately administered, the patient was placed into dorsolithotomy position was prepped and draped in usual sterile fashion. The cystoscope was inserted through the urethra under direct visualization into the urinary bladder. The mucosa of the bladder was visualized in its entirety revealing no evidence of mass, ulceration or lesion. The left ureteral orifice was intubated with a 0.035 Glidewire. The flexible ureteroscope was then easily passed over the Glidewire into the ureter and easily advanced into the renal pelvis. There was no evidence of mass or lesion or area of abnormal erythema identified. Every calyx was directly visualized. Flushing of the renal pelvis was sent for cytologic evaluation. On the patient's right side, 2 separate 0.035 Glidewire's were passed into the renal pelvis. A ureteral access sheath was then placed over one of the glide wires under fluoroscopic visualization without difficulty. The flexible ureteroscope was then placed through the access sheath into the renal pelvis. The stone was identified in the midpole and is approximately 6 mm in size. There were no abnormalities of the mucosa identified. A sample of urine was sent for cytologic evaluation. At this time the scope was advanced and there was difficulty in reaching the stone with the ureteroscope. A 200 laser fiber was advanced towards the stone and the end of it was broken into small pieces very easily. Movement of the ureteroscope began to be more difficult and I was concerned about stretching of the ureter and torque being placed on the area of the access sheath. The ureteroscope was then removed under direct visualization to remove the access sheath. There was no rent in the ureter appreciated, the access sheath was a little tight and removal however. At this time using the remaining Glidewire, a 6 Japanese 24 cm JJ stent was placed with good positioning in the renal pelvis as well as the urinary bladder. The patient's bladder was then emptied and the case was terminated. The patient was awakened and taken to the recovery room in good condition. There were no complications during the procedure. Grafts/Implants Used: 6 x 24 JJ stent Complications None Admit VTE Documentation VTE Present on Admission: Yes VTE Mechan Device Prophylaxis: SCD's VTE Pharm Prophylaxis ordered?: Yes
== END 2022-06-08 12:21 | disposition home or self-care (01) ==
LOC: SDC 07:24 → AC 07:27
PROVIDERS: PCP Family Medicine; Referring Provider Urology; Visit Provider Urology
PROC: 0TJ98ZZ Inspection of Ureter, Via Natural or Artificial Opening Endoscopic (ICD-10-PCS; CPT 52352; principal; 2022-06-08 08:45)
DX: N20.1 Calculus of ureter (principal); I48.19 Other persistent atrial fibrillation; R31.0 Gross hematuria; I10 Essential (primary) hypertension; E78.5 Hyperlipidemia, unspecified; L90.0 Lichen sclerosus et atrophicus; G47.33 Obstructive sleep apnea (adult) (pediatric); Z91.199 Patient's noncompliance with other medical treatment and regimen due to unspecified reason; Z95.0 Presence of cardiac pacemaker; Z79.01 Long term (current) use of anticoagulants; Z79.899 Other long term (current) drug therapy; Z86.16 Personal history of COVID-19
CPT/HCPCS: 52356; 00918; 76000; 88108; 88313; J7120; C2617; J2405

== ENCOUNTER → 2022-06-09 | Outpatient (CLI) | payer MEDICARE, SELFPAY ==
[2022-06-09 15:41] LABS: Hematocrit 43.6 % (37-47); Hemoglobin 14.3 g/dL (12.0-15.0); Mean Corp Hgb Conc 32.8 g/dL (32-36); Mean Corpuscular Hgb 30.2 pg (27.0-32.0); Mean Platelet Vol. 10.4 fl (6.2-12.0); Platelet Count 173 K/mm3 (150-450); RBC Distribution Width CV 13.4 % (11.6-14.6); RBC Distribution Width SD 45.9 fl (35.1-43.9); Red Blood Count 4.74 M/mm3 (4.2-5.4)
[2022-06-09 16:25] LABS: Anion Gap 4 (5-15); BUN 21 mg/dL (7-18); BUN/Creat Ratio 17.2 RATIO (10-20); Calcium,Total 9.8 mg/dL (8.5-10.1); Chloride 108 mmol/L (98-107); Creatinine, Serum 1.22 mg/dL (0.55-1.02); EST Glomerular Filtration Rate 46 mL/min (>60); Est Glom Filt Rate - Afr Amer 55 mL/min (>60); Glucose 130 mg/dL (74-106); Potassium 4.1 mmol/L (3.5-5.1); Sodium Level 137 mmol/L (136-145)
== END | disposition home or self-care (01) ==
LOC: MTLAB 14:02
PROVIDERS: PCP Family Medicine; Referring Provider Urology; Visit Provider Urology
DX: R31.9 Hematuria, unspecified (principal)
CPT/HCPCS: 36415; 80048; 85027

== ENCOUNTER 2022-06-29 07:12 | Day surgery (SDC) | payer MEDICARE, SELFPAY ==
[2022-06-29] VITALS (7 sets, daily range): BP systolic 123–146; BP diastolic 60–90; PULSE 60–62; RESP 16; TEMP 36.1–36.4; O2SAT 90–97; BMI 39.5
--- NOTE | 2022-06-29 | CALC_PTH ---
PATIENT: SAVANNA MCDONOUGH LOC: [facility] [place] U#:[id number] AGE/SX: 77/F ROOM: RE06/29/[address]: Dr. Ninfa Mejia MD : 1945 BED: DIS: 06/29/2022 SPEC #: [id number] RECD: 06/29/22 11:28 STATUS: FAITH ANDREWS #: [id number] IVELISSE: 06/29/22 00:[address]: Ninfa Mejia DEPT: SURGICAL PATHOLOGY RECD BY: Russ Harden ENTERED: 06/29/22 11:28 SP TYPE: Calculi OTHR DR: Dr. Bria Spencer MD Tissues: CALCULI Procedures: Surgery Specimen Level I HEADER OPERATION: Cysto, ureteroscopy, laser, basket extraction, stent placement PRE-OP DIAGNOSIS: Gross hematuria, right kidney stone, urge incontinence, nocturia TISSUE SUBMITTED: Right renal calculus GROSS DIAGNOSIS A fragment of stone, clinically right renal calculus (gross only). JAMES:ramonita 06/30/2022 COMMENT The calculus is submitted in its entirety for chemical stone analysis. The results from this study will be reported separately. GROSS DESCRIPTION Received without fixative labeled with the patient's name and designated ?right renal calculus. The specimen consists of a fragment of brownish-black stone measuring 0.2 x 0.1 x 0.1 cm. The entire specimen is submitted for stone analysis. / JAMES:ramonita 06/29/2022 CPT: 50736
[2022-06-29] MEDS: Lactated Ringers 1,000 ML 15 ML IV (08:10)
--- NOTE | 2022-06-29 08:52 | DCINST_ITS ---
Discharge Instructions Diet Discharge Diet: No restrictions Activity Discharge Activity: Return to Normal Activity May resume sexual activity in: No Restrictions Dressing / Incision Call your doctor if you observe: Fever of 101 or Higher, Inability to urinate and Inability to have a bowel movement Follow Up Care Please Follow Up With: Ninfa Mejia MD When: call for appointment Test Results: Test results from this visit will be discussed in further detail at your follow- up appointment, if applicable. Discharge Plan Admission Attending Provider: Ninfa Mejia Primary Care Provider: Bria Spencer Discharge Orders/Prescriptions Prescriptions: New ondansetron HCl [ondansetron HCl] 8 mg tablet 8 mg PO Q8H PRN PRN (Reason: Nausea) 7 Days Qty: 20 0RF oxycodone-acetaminophen [Percocet] 5-325 mg tablet 1 tab PO Q8H PRN (Reason: pain) 3 Days Qty: 10 0RF cephalexin [cephalexin] 500 mg capsule 500 mg PO Q12 3 Days Qty: 6 0RF Continued cholecalciferol (vitamin D3) 1,000 unit tablet 1,000 unit PO QDAY citalopram 20 mg Tablet 20 mg PO DAILY phenazopyridine [Pyridium] 200 mg tablet 200 mg PO TID PRN PRN (Reason: Bladder Spasms) 7 Days Qty: 30 0RF metoprolol tartrate 100 mg tablet 100 mg PO BID Qty: 180 3RF furosemide 40 mg tablet 40 mg PO .PRN PRN (Reason: SOB) Qty: 90 3RF Xarelto 20 mg tablet 20 mg PO QHS Qty: 90 3RF Hold Instructions: pacemaker procedure Rx Instructions: must administer with evening meal flecainide 150 mg tablet 150 mg PO Q12H Qty: 180 3RF Referrals / Follow Up: Bria Spencer MD [Primary Care Provider] - Disposition Disposition (needs filled in before D/C Order can be placed): Home, Self Care
--- NOTE | 2022-06-29 08:55 | OP.PCM_ITS ---
Report of Operation Date of Procedure: 06/29/22 Pre-Operative Diagnosis: Right renal stone, hematuria Post-Operative Diagnosis: Same Surgery/Procedure Performed:: Cystoscopy, right ureteroscopy stone basket extraction, right ureteral stent change Surgeon: Ninfa Mejia Type of Anesthesia: General Specimen's removed: Right renal stone fragments Complications None Admit VTE Documentation VTE Present on Admission: Yes VTE Mechan Device Prophylaxis: SCD's VTE Pharm Prophylaxis ordered?: Yes
--- NOTE | 2022-06-29 08:55 | PCM.OPRPT ---
Report of Operation Date of Procedure: 06/29/22 Pre-Operative Diagnosis: Right renal stone, hematuria Post-Operative Diagnosis: Same Surgery/Procedure Performed:: Cystoscopy, right ureteroscopy, holmium laser lithotripsy, stone basket extraction, right ureteral stent change Surgeon: Ninfa Mejia Type of Anesthesia: General Specimen's removed: Right renal stone fragments Description of Procedure: The patient is a 77-year-old female with a right renal calculus and hematuria who underwent ureteroscopy and there was difficulty in treatment of the renal stones secondary to narrowing of the right ureter. A ureteral stent was inserted and it has been in place for 2 weeks. She now presents for repeat ureteroscopy with stone management and stent change. Informed consent has been obtained. The patient was taken to the operating room and placed on the operating room table. Anesthesia monitored the head, neck, airway, IV access and vital signs throughout the case. Once anesthesia was appropriately administered, the patient was placed into dorsal lithotomy position and was prepped and draped in usual sterile fashion. The cystoscope was inserted through the urethra under direct visualization into the urinary bladder. 2 separate 0.035 Glidewire's were placed alongside the indwelling ureteral stent and seen on fluoroscopy to be curling in the renal pelvis. The stent was then grasped and removed without difficulty leaving the [address] The flexible ureteroscope was then inserted over one of the wires and easily advanced into the renal pelvis. There was some mucus and old blood identified but no evidence of infection including pus, active bleeding or erythema of the tissue. The stone was identified and using a 200 ?m laser fiber was broken into several very small fragments. A few of them were able to be removed with the basket however the majority were very small and unable to be removed. The renal pelvis and the calyces were flushed with the ureteroscope and the entire length of the ureter was visualized as the ureteroscope was removed revealing no evidence of injury. A 6 Chilean 24 cm JJ stent was inserted using the indwelling safety wire and the cystoscope. There was good positioning in the renal pelvis as well as the urinary bladder. The patient's bladder was then emptied. She was awakened and taken to the recovery room in good condition. There were no complications during this procedure. Grafts/Implants Used: 6 x 24 JJ stent Complications None Admit VTE Documentation VTE Present on Admission: Yes VTE Mechan Device Prophylaxis: SCD's VTE Pharm Prophylaxis ordered?: Yes
[2022-06-29] MEDS: Cefazolin 2 GM in 0.9% Normal Saline 100 ML IV (09:08)
== END 2022-06-29 12:02 | disposition home or self-care (01) ==
LOC: SDC 07:13 → AC 07:16
PROVIDERS: PCP Family Medicine; Referring Provider Urology; Visit Provider Urology
PROC: (CPT 52332; principal; 2022-06-29 08:40)
DX: N20.0 Calculus of kidney (principal); I48.19 Other persistent atrial fibrillation; R31.0 Gross hematuria; G47.33 Obstructive sleep apnea (adult) (pediatric); N39.41 Urge incontinence; I10 Essential (primary) hypertension; F32.9 Major depressive disorder, single episode, unspecified; Z95.0 Presence of cardiac pacemaker; Z79.899 Other long term (current) drug therapy; Z79.01 Long term (current) use of anticoagulants; Z86.16 Personal history of COVID-19
CPT/HCPCS: 52356; 00873; 76000; 82360; 88300; J7120; C2617; J2405

== ENCOUNTER → 2022-07-13 | Outpatient (CLI) | payer MEDICARE, SELFPAY ==
--- NOTE | 2022-07-13 11:54 | BI_ITS ---
MAMMOGRAPHY - BILATERAL SCREENING REASON FOR EXAM: Female, 77 years old. Routine annual screening examination. PERTINENT HISTORY: Sister with breast cancer. TECHNIQUE: Digital bilateral breast olga lidia (3D mammographic acquisition) in the CC and MLO projections. 2-D mediolateral oblique (MLO) and craniocaudad (CC) views of both breasts were obtained. CAD: Full Field Digital Mammography with Computer Added Detection was performed. COMPARISON: Mammogram from 07/06/2021, 02/03/2020. FINDINGS: Breast Composition: There are scattered areas of fibroglandular density. There are no dominant masses or suspicious calcifications. Stable benign-appearing bilateral axillary lymph nodes. No other significant abnormalities are identified. BI/SCRN MAMM (CAD)W/OLGA LIDIA BILAT IMPRESSION: Stable bilateral screening mammogram. Yearly follow-up mammogram recommended. (A) ASSESSMENT CATEGORY: BIRADS Category 2: Benign. A letter regarding these results will be sent to the patient by the facility within 30 days. Approximately 10% of breast cancers are not detected by mammography. A normal mammogram should not delay biopsy of a clinically suspicious abnormality. Electronically Signed: Kaushik Parada DO at 11:32 EDT ,
== END | disposition home or self-care (01) ==
LOC: OPBI 11:53
PROVIDERS: PCP Family Medicine; Referring Provider Nurse Practitioner Women's Health; Visit Provider Nurse Practitioner Women's Health
DX: Z12.31 Encounter for screening mammogram for malignant neoplasm of breast (principal)
CPT/HCPCS: 77063; 77067

== ENCOUNTER → 2022-08-18 | Outpatient (CLI) | payer MEDICARE, SELFPAY ==
[2022-08-18 13:10] LABS: Calcium,Total 10.3 mg/dL (8.5-10.1)
== END | disposition home or self-care (01) ==
LOC: MTLAB 10:22
PROVIDERS: PCP Family Medicine; Referring Provider Urology; Visit Provider Urology
DX: E83.52 Hypercalcemia (principal)
CPT/HCPCS: 36415; 82310

== ENCOUNTER → 2022-09-15 | Outpatient (CLI) | payer MEDICARE, SELFPAY ==
[2022-09-15 15:34] LABS: Vitamin D,25 Hydroxy 18.4 ng/mL
[2022-09-15 15:39] LABS: AST(SGOT) 13 U/L (15-37); Alanine Aminotransfer ALT/SGPT 21 U/L (13-56); Albumin, Serum 3.6 g/dL (3.2-5.0); Alkaline Phosphatase 90 U/L (45-117); Anion Gap 5 (5-15); BUN 16 mg/dL (7-18); BUN/Creat Ratio 13.7 RATIO (10-20); Calcium,Total 9.8 mg/dL (8.5-10.1); Chloride 105 mmol/L (98-107); Creatinine, Serum 1.17 mg/dL (0.55-1.02); EST Glomerular Filtration Rate 48 mL/min (>60); Est Glom Filt Rate - Afr Amer 58 mL/min (>60); Globulin 3.6 g/dL (2.2-4.2); Glucose 171 mg/dL (74-106); Potassium 4.5 mmol/L (3.5-5.1); Protein, Total 7.2 g/dL (6.4-8.2); Sodium Level 139 mmol/L (136-145)
[2022-09-18 08:20] LABS: PTHIN 232.9 pg/mL (18.4-80.1)
[2022-09-19 12:09] LABS: Vitamin D 1,25-Dihydroxy 55.9 pg/mL (24.8-81.5)
== END | disposition home or self-care (01) ==
PROVIDERS: PCP Family Medicine; Referring Provider Family Medicine; Visit Provider Family Medicine
DX: E83.52 Hypercalcemia (principal)
CPT/HCPCS: 36415; 80053; 82306; 82330; 82652; 83970

== ENCOUNTER → 2022-11-08 | Outpatient (CLI) | payer MEDICARE, SELFPAY ==
[2022-11-08 10:36] LABS: Ionized Calcium 5.56 mg/dL (4.36-5.20)
[2022-11-08 11:05] LABS: PTHIN 168.4 pg/mL (18.4-80.1)
[2022-11-08 11:06] LABS: Vitamin D,25 Hydroxy 32.1 ng/mL
[2022-11-08 11:27] LABS: AST(SGOT) 13 U/L (15-37); Alanine Aminotransfer ALT/SGPT 31 U/L (13-56); Albumin, Serum 3.7 g/dL (3.2-5.0); Alkaline Phosphatase 82 U/L (45-117); Anion Gap 5 (5-15); BUN 19 mg/dL (7-18); BUN/Creat Ratio 18.4 RATIO (10-20); Calcium,Total 10.1 mg/dL (8.5-10.1); Chloride 103 mmol/L (98-107); Creatinine, Serum 1.03 mg/dL (0.55-1.02); EST Glomerular Filtration Rate 55 mL/min (>60); Est Glom Filt Rate - Afr Amer 67 mL/min (>60); Globulin 3.8 g/dL (2.2-4.2); Glucose 169 mg/dL (74-106); Potassium 4.8 mmol/L (3.5-5.1); Protein, Total 7.5 g/dL (6.4-8.2); Sodium Level 137 mmol/L (136-145)
[2022-11-08 17:44] LABS: Ionized Calcium Order ORDER TUBE
== END | disposition home or self-care (01) ==
LOC: BFHLAB 09:44
PROVIDERS: PCP Family Medicine; Referring Provider Family Medicine; Visit Provider Family Medicine
DX: E83.52 Hypercalcemia (principal); E21.3 Hyperparathyroidism, unspecified
CPT/HCPCS: 36415; 80053; 82306; 82330; 83970

== ENCOUNTER → 2022-11-24 | Outpatient (CLI) | payer MEDICARE, SELFPAY ==
--- NOTE | 2022-11-24 12:34 | US_ITS ---
INDICATION: Hyperparathyroidism EXAMINATION: Ultrasound US Thyroid (eg thyroid, parathyroid, parotid) TECHNIQUE: Garcia scale and color doppler imaging was performed of the thyroid gland. COMPARISON: None. FINDINGS: RIGHT THYROID LOBE: 3.8 x 1.8 x 1.7 cm. Homogeneous echotexture with normal vascularity. [No thyroid nodules are present. LEFT THYROID LOBE: 3.2 x 1.3 x 1.2 cm. Homogeneous echotexture with normal vascularity. [No thyroid nodules are present. ISTHMUS: 4 mm. No thyroid nodules are present. US/Thyroid IMPRESSION: Negative thyroid ultrasound examination. Electronically Signed: Yovanny Arciniega MD at 23:13 EDT ,
== END | disposition home or self-care (01) ==
LOC: US 12:33
PROVIDERS: PCP Family Medicine; Referring Provider Family Medicine; Visit Provider Family Medicine
DX: E21.3 Hyperparathyroidism, unspecified (principal)
CPT/HCPCS: 76536

== ENCOUNTER 2022-12-11 08:29 | Outpatient (RCR) | payer MEDICARE, SELFPAY | END 2022-12-19 23:59 | LOC: NS 08:29 | PROVIDERS: PCP Family Medicine; Referring Provider Family Medicine; Visit Provider Family Medicine | DX: Z71.9 Counseling, unspecified (principal); E11.9 Type 2 diabetes mellitus without complications | CPT/HCPCS: 97802 ==

== ENCOUNTER → 2022-12-14 | Outpatient (CLI) | payer MEDICARE, SELFPAY ==
--- NOTE | 2022-12-14 10:00 | NM_ITS ---
CLINICAL: 77-year-old female with history of clinical hyperparathyroidism. 99m Tc SESTAMIBI DUAL PHASE PARATHYROID SCINTIGRAPHY COMPARISON: Thyroid ultrasound report 11/24/2022 FINDINGS: Following the intravenous administration of 25.6 mCi of 99m Tc sestamibi, image acquisitions of the anterior neck at approximately 15 minutes and 3.0 hours post radiopharmaceutical provision reveal: 1. Immediate static blood pool acquisitions demonstrate uptake demonstrated in the right and left thyroid colloid of a U-shaped thyroid gland. An additional focus of increased uptake is noted in the left anterior neck caudal to the inferior pole of the left thyroid bed. 2. Delayed images depict near complete washout of the radiotracer from the right-left thyroid colloid with persistent visualization relatively unchanged of uptake noted in the anterior neck adjacent to the inferior pole of the left lobe thyroid bed. NM/Parathyroid Scan IMPRESSION: 1. The persistent increase in tracer distribution defined in the left anterior neck caudal to the inferior pole of the left lobe thyroid colloid may represent parathyroid adenoma. 2. Incomplete-delayed washout of the radiopharmaceutical from the entire functioning thyroid colloid may be secondary to multinodular goiter, chronic lymphocytic thyroiditis. (Davey, Radiographics 19: 601, 1999). Electronically Signed: Juan Carlos Simental DO at 22:33 EDT ,
== END | disposition home or self-care (01) ==
PROVIDERS: PCP Family Medicine; Referring Provider Family Medicine; Visit Provider Family Medicine
DX: E21.3 Hyperparathyroidism, unspecified (principal)
CPT/HCPCS: 78070; A9500

== ENCOUNTER → 2023-02-20 | Outpatient (CLI) | payer MEDICARE, SELFPAY ==
[2023-02-20 12:07] LABS: Ionized Calcium 5.23 mg/dL (4.36-5.20)
--- OUTSIDE RECORDS SUMMARY | 2023-02-20 12:12 | XMS RPT_ITS | CCD ---
Author Name Unknown Address [facility] [address] [place] [address] Organization [facility] Care Team Providers Care Esthetician/Spa Coordinator Name Role Phone Nellie Topete Unavailable Unavailable Nellie Topete Unavailable Unavailable SHARON Baltazar, Abigail Christine Unavailable UnavailMarta Ward Unavailable Unavailable Marta Urrutia Unavailable Unavailable Nellie Topete Unavailable Unavailable Allergies Allergy Classification Reported Allergen(s) Allergy Type Date of Onset Reaction(s) Facility (12 sources) codeine drug allergy 04-18-19 13 N&V [facility] Work Phone: [phone] (6 sources) dronedarone drug allergy 04-18-19 13 Severe GI intolerance [facility] Work Phone: [phone] (6 sources) loratadine drug allergy 04-18-19 13 N&V, diarrhea [facility] Work Phone: [phone] (12 sources) meloxicam; Translations: [MOBIC] allergy to substance 08-05-19 15 N&V [facility] Work Phone: [phone] (6 sources) methylprednisoLONE drug allergy 04-18-19 13 N&V, diarrhea [facility] Work Phone: [phone] (12 sources) Penicillins (Antibiotic) drug allergy 04-18-19 13 N&V [facility] Work Phone: [phone] (6 sources) sulfamethoxazole / trimethoprim drug allergy 04-18-19 13 Hives, nausea [facility] Work Phone: [phone] (6 sources) CILLINS drug allergy 04-18-19 13 [facility] Work Phone: [phone] Medications Completed/Discontinued Medications Medication Drug Class(es) Dates Sig (Normalized) Sig (Original) amiodarone hydrochloride 200 mg oral tablet (12 sources) Antiarrhythmic Start: 07-23-2014 End: 08-05-2014 take 1 tablet by mouth once daily AMIODARONE HCL 200 MG TABS One tablet by mouth daily AMIODARONE HCL [id number] Reynaldo Thapa MD aspirin 81 mg oral tablet (18 sources) Nonsteroidal Anti-inflammatory Drug Start: 04-19-2012 End: 08-05-2014 ASPIRIN 81 MG TABS ASPIRIN [id number] Reynlado Thapa MD Problems Active Problems Problem Classification Problem Date Documented Da te Episodic/Chronic Cardiac dysrhythmias (12 sources) Paroxysmal atrial fibrillation; Translations: [Atrial fibrillation] Onset: 04-18-2012 12-10-2015 Chronic Diabetes mellitus without complication (12 sources) Diabetes mellitus; Translations: [Type 2 diabetes mellitus without complications] Onset: 04-18-2012 Resolved: 04-19-2012 04-18-2012 Chronic Disorders of lipid metabolism (6 sources) Hyperlipidemia; Translations: [Hyperlipidemia, unspecified] Onset: 04-18-2012 04-18-2012 Chronic Essential hypertension (6 sources) Hypertensive disorder; Translations: [Essential (primary) hypertension] Onset: 04-18-2012 04-18-2012 Chronic Other nutritional; endocrine; and metabolic disorders (12 sources) Body mass index (BMI) 37.0-37.9, adult; Translations: [Body mass index (BMI) 36.0-36.9, adult] Onset: 04-17-2013 Resolved: 11-18-2014 04-16-2014 Chronic Other nutritional; endocrine; and metabolic disorders (8 sources) Body mass index (BMI) 36.0-36.9, adult; Translations: [Body mass index (BMI) 35.0-35.9, adult] Onset: 04-17-2013 Resolved: 11-18-2014 04-17-2013 Chronic Past or Other Problems Problem Classification Problem Date Documented Da te Episodic/Chronic Other aftercare (6 sources) 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; Translations: [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] Onset: 11-18-2014 11-18-2014 Episodic Other gastrointestinal disorders (6 sources) Dysphagia; Translations: [Dysphagia, unspecified] Onset: 06-20-2015 09-20-2015 Episodic Unclassified (12 sources) Family history of ischemic heart disease; Translations: [Family history of ischemic heart disease and other diseases of the circulatory system] Onset: 08-04-2014 Resolved: 11-18-2014 08-04-2014 Episodic Unclassified (5 sources) Screening for malignant neoplasm of colon ; Translations: [Encounter for screening for malignant neoplasm of colon] Onset: 09-27-2015 Resolved: 10-04-2015 09-27-2015 Results Test Name Value Interpretation Reference Range Facil ity Vital Signs Date Time Vital Sign Value Performing Clinician Georgia torres 12-29-2016 10:52-0500 BMI (Body Mass Index) 35.36 kg/m2 Marta Young [facility] Work Phone: 12-29-2016 10:52-0500 BP Diastolic 78 mm[Hg] Marta Young [facility] Work Phone: 12-29-2016 10:52-0500 BP Systolic 120 mm[Hg] Marta Young [facility] Work Phone: 12-29-2016 10:52-0500 Height 162.56 cm Marta Young [facility] Work Phone: 12-29-2016 10:52-0500 Pulse (Heart Rate) 60 /min Marta Young [facility] Work Phone: 12-29-2016 10:52-0500 Respiratory Rate 20 /min Marta Young [facility] Work Phone: 12-29-2016 10:52-0500 Weight 93.44 kg Marta Young [facility] Work Phone: 06-30-2016 10:41-0400 Heart rate 57 /min Nellie Young [facility] Work Phone: 06-30-2016 10:28-0400 BMI (Body Mass Index) 37.24 kg/m2 Nellie Young [facility] Work Phone: 06-30-2016 10:28-0400 BP Diastolic 70 mm[Hg] [facility] Work Phone: 06-30-2016 10:28-0400 BP Systolic 122 mm[Hg] Nellie [facility] Work Phone: 06-30-2016 10:28-0400 Height 162.56 cm Nellie [facility] Work Phone: 06-30-2016 10:28-0400 Pulse (Heart Rate) 58 /min Nellie [facility] Work Phone: 06-30-2016 10:28-0400 Pulse Oximetry 98 % Nellie [facility] Work Phone: 06-30-2016 10:28-0400 Respiratory Rate 20 /min Nellie [facility] Work Phone: 06-30-2016 10:28-0400 Weight 98.43 kg Nelliejosef [facility] Work Phone: 12-28-2015 10:47-0500 BMI (Body Mass Index) 37.52 kg/m2 [facility] Work Phone: 12-28-2015 10:47-0500 BP Diastolic 60 mm[Hg] [facility] Work Phone: 12-28-2015 10:47-0500 BP Systolic 110 mm[Hg] [facility] Work Phone: 12-28-2015 10:47-0500 BSA (Body Surface Area) 2.03 m2 [facility] Work Phone: 12-28-2015 10:47-0500 Pulse (Heart Rate) 60 /min [facility] Work Phone: 12-28-2015 10:47-0500 Respiratory Rate 20 /min [facility] Work Phone: 12-28-2015 10:47-0500 Weight 99.16 kg SH[facility]ON [facility] Work Phone: 09-20-2015 14:56-0400 Body Temperature 99 [degF] [facility] Work Phone: 09-20-2015 14:56-0400 Pulse Oximetry 96 % [facility] Work Phone: 04-19-2012 13:13-0500 Height 162.56 cm [facility]ON [facility] Work Phone: Procedures Date Procedure Procedure Detail Performing Clinician Start: 12-29-2016 End: 12-29-2016 BUTCHER APPRENTICE Jazmin Cheng PA-C Work Phone: Start: 12-29-2016 End: 12-29-2016 Follow Up Appt 6 months Jazmin carlson PA-C Work Phone: Start: 06-30-2016 End: 12-19-2016 Ecg routine ecg w/least 12 lds w/i&r Reynaldo Thapa MD Start: 06-30-2016 End: 12-19-2016 Follow Up Appt 6 months Nanci Rios Start: 06-30-2016 End: 12-19-2016 RODOLFO Thapa MD Start: 06-30-2016 End: 06-30-2016 Dietary management education, guidance, and counseling Nellie Yoselyn Start: 12-28-2015 End: 12-28-2015 Follow Up Appt 6 months Nanci Rios Start: 12-28-2015 End: 12-28-2015 RODOLFO Thapa MD Start: 12-28-2015 End: 12-28-2015 Follow Up Appt 6 months Nanci Rios Start: 12-28-2015 End: 12-28-2015 RODOLFO Thapa MD Start: 09-27-2015 End: 10-04-2015 Screening for malignant neoplasm of colon Screening, colon ca Nellie Topete Start: 09-20-2015 End: 09-24-2015 Follow Up after Imaging/labs Win John MD Work Phone: Start: 09-20-2015 End: 09-24-2015 Radex esophagus Win John MD Work Phone: Start: 09-20-2015 End: 09-21-2015 Referral to physician Win jordan MD Work Phone: Start: 09-20-2015 End: 09-24-2015 Contrast x-ray, esophagus Win flores MD Work Phone: Start: 09-20-2015 End: 09-24-2015 Follow Up after Imaging/labs Win John MD Work Phone: Start: 09-20-2015 End: 09-21-2015 Referral to physician Win jordan MD Work Phone: Start: 06-18-2015 End: 06-18-2015 DAKOTAH Thapa MD Start: 06-18-2015 End: 06-18-2015 Follow Up Appt 6 months Nanci Rios Start: 06-18-2015 End: 06-18-2015 DAKOTAH Thapa MD Start: 06-18-2015 End: 06-18-2015 Follow Up Appt 6 months Nanci Rios Start: 11-19-2014 End: 11-20-2014 Documentation of current medications Reynaldo Thapa MD Start: 11-19-2014 End: 11-19-2014 Ecg routine ecg w/least 12 lds w/i&r Reynaldo Thapa MD Start: 11-19-2014 End: 11-19-2014 Follow Up Appt 6 months Nanci Rios Start: 11-19-2014 End: 11-19-2014 RODOLFO Thapa MD Start: 11-19-2014 End: 11-20-2014 Documentation of current medications Reynaldo Thapa MD Start: 11-19-2014 End: 11-19-2014 Electrocardiogram, complete Reynaldo Thapa MD Start: 11-19-2014 End: 11-19-2014 Follow Up Appt 6 months Nanci Rios Start: 11-19-2014 End: 11-19-2014 MMM Reynaldo Thapa MD Start: 08-05-2014 End: 08-05-2014 DAKOTAH Thapa MD Start: 08-05-2014 End: 08-06-2014 Documentation of current medications Reynaldo Thapa MD Start: 08-05-2014 End: 08-05-2014 Ecg routine ecg w/least 12 lds w/i&r Reynaldo Thapa MD Start: 08-05-2014 End: 08-05-2014 Follow Up Appt 3 months Nanci Rios Start: 08-05-2014 End: 08-05-2014 BUTCHER APPRENTICE Reynaldo Thapa MD Start: 08-05-2014 End: 08-06-2014 Documentation of current medications Reynaldo Thapa MD Start: 08-05-2014 End: 08-05-2014 Electrocardiogram, complete Reynaldo Thapa MD Start: 08-05-2014 End: 08-05-2014 Follow Up Appt 3 months Nanci Rios Start: 04-16-2014 End: 04-16-2014 DAKOTAH Cheng PA-C Work Phone: Start: 04-16-2014 End: 04-17-2014 Documentation of current medications Jazmin Cheng PA-C Work Phone: Start: 04-16-2014 End: 04-16-2014 Ecg routine ecg w/least 12 lds w/i&r Jazmin Cheng PA-C Work Phone: Start: 04-16-2014 End: 04-16-2014 Follow Up Appt 1 year Jazmin hurst PA-C Work Phone: Start: 04-16-2014 End: 04-16-2014 BUTCHER APPRENTICE Jazmin Cheng PA-C Work Phone: Start: 04-16-2014 End: 04-17-2014 Documentation of current medications Jazmin Cheng PA-C Work Phone: Start: 04-16-2014 End: 04-16-2014 Electrocardiogram, complete Jazmin Cheng PA-C Work Phone: Start: 04-16-2014 End: 04-16-2014 Follow Up Appt 1 year Jazmin hurst PA-C Work Phone: Start: 10-20-2013 End: 04-27-2015 *Hepatic Function Panel Nanci Rios Start: 10-20-2013 End: 04-27-2015 Lipid 1996 panel - Serum or Plasma Reynaldo Thapa MD Start: 10-20-2013 End: 04-27-2015 *Hepatic Function Panel Nanci Rios Start: 10-20-2013 End: 04-27-2015 Lipid panel [AGGREGATE] Nanci Rios Start: 04-17-2013 End: 04-17-2013 Follow Up Appt 1 year Reynaldo Thapa MD Start: 04-17-2013 End: 04-17-2013 RODOFLO Thapa MD Start: 04-17-2013 End: 04-17-2013 Follow Up Appt 1 year Reynaldo Thapa MD Start: 04-17-2013 End: 04-17-2013 RODOLFO Thapa MD Start: 10-16-2012 End: 11-17-2012 *Hepatic Function Panel Jazmin carlson PA-C Work Phone: Start: 10-16-2012 End: 10-16-2012 BUTCHER APPRENTICE Jazmin Cheng PA-C Work Phone: Start: 10-16-2012 End: 10-16-2012 Follow Up Appt 6 months Jazmin carlson PA-C Work Phone: Start: 10-16-2012 End: 11-19-2012 Lipid 1996 panel - Serum or Plasma Jazmin Cheng PA-C Work Phone: Start: 10-16-2012 End: 11-17-2012 *Hepatic Function Panel Jazmin carlson PA-C Work Phone: Start: 10-16-2012 End: 10-16-2012 BUTCHER APPRENTICE Jazmin Cheng PA-C Work Phone: Start: 10-16-2012 End: 10-16-2012 Follow Up Appt 6 months Jazmin carlson PA-C Work Phone: Start: 10-16-2012 End: 11-19-2012 Lipid panel [AGGREGATE] Jazmin carlson PA-C Work Phone: Start: 04-19-2012 End: 04-19-2012 Ecg routine ecg w/least 12 lds w/i&r Reynaldo Thapa MD Start: 04-19-2012 End: 04-19-2012 Follow Up Appt 6 months Nanci Rios Start: 04-19-2012 End: 04-19-2012 RODOLFO Thapa MD Start: 04-19-2012 End: 04-19-2012 Electrocardiogram, complete Reynaldo Thapa MD Start: 04-19-2012 End: 04-19-2012 Follow Up Appt 6 months Nanci Rios Start: 04-19-2012 End: 04-19-2012 RODOLFO Thapa MD Plan of Treatment Date Care Activity Detail Author Start: 07-10-2017 End: 07-10-2017 Appointment Appointment [facility] Work Phone: Start: 12-29-2016 End: 12-29-2016 BUTCHER APPRENTICE [facility] Work Phone: Start: 12-29-2016 End: 12-29-2016 Follow Up Appt 6 months Follow Up Appt 6 months [facility] Work Phone: Start: 12-29-2016 End: 12-29-2016 Appointment Appointment [facility] Work Phone: Start: 12-29-2016 End: 12-29-2016 Appointment Appointment [facility] Work Phone: Start: 06-30-2016 End: 12-19-2016 Ecg routine ecg w/least 12 lds w/i&r EKG (In office) [facility] Work Phone: Start: 06-30-2016 End: 12-19-2016 Follow Up Appt 6 months Follow Up Appt 6 months [facility] Work Phone: Start: 06-30-2016 End: 12-19-2016 MMNanci REYNOLDS [facility] Work Phone: Start: 06-30-2016 End: 06-30-2016 Appointment Appointment [facility] Work Phone: Start: 06-30-2016 End: 06-30-2016 Electrocardiogram, complete EKG (In office) [facility] Work Phone: Start: 06-30-2016 End: 06-30-2016 Follow Up Appt 6 months Follow Up Appt 6 months [facility] Work Phone: Start: 06-30-2016 End: 06-30-2016 MMM MMM [facility] Work Phone: Start: 12-28-2015 End: 12-28-2015 Follow Up Appt 6 months Follow Up Appt 6 months [facility] Work Phone: Start: 12-28-2015 End: 12-28-2015 MMM MMM [facility] Work Phone: Start: 12-28-2015 End: 12-28-2015 Follow Up Appt 6 months Follow Up Appt 6 months [facility] Work Phone: Start: 12-28-2015 End: 12-28-2015 MMM MMM [facility] Work Phone: Start: 09-27-2015 End: 09-27-2015 Colonoscopy flx dx w/collj spec when pfrmd Colonoscopy [facility] Work Phone: Start: 09-27-2015 End: 09-27-2015 Esophagogastroduodenoscopy transoral diagnostic Upper gastrointestinal endoscopy [facility] Work Phone: Start: 09-27-2015 End: 09-27-2015 Diagnostic colonoscopy Colonoscopy [facility] Work Phone: Start: 09-27-2015 End: 09-27-2015 Uppr gi endoscopy, diagnosis Upper gastrointestinal endoscopy [facility] Work Phone: Start: 09-20-2015 End: 09-24-2015 Follow Up after Imaging/labs Follow Up after Imaging/labs [facility] Phone: Start: 09-20-2015 End: 09-24-2015 Primary Care Physician Primary Care Physician [facility] Work Phone: Start: 09-20-2015 End: 09-24-2015 Radex esophagus X-Ray, Esophagus & Pharynx [facility] Work Phone: Start: 09-20-2015 End: 09-24-2015 Contrast x-ray, esophagus X-Ray, Esophagus & Pharynx [facility] Work Phone: Start: 09-20-2015 End: 09-24-2015 Follow Up after Imaging/labs Follow Up after Imaging/labs [facility] Work Phone: Start: 09-20-2015 End: 09-24-2015 Primary Care Physician Primary Care Physician [facility] Work Phone: Start: 06-18-2015 End: 06-18-2015 [facility] Work Phone: Start: 06-18-2015 End: 06-18-2015 Follow Up Appt 6 months Follow Up Appt 6 months [facility] Work Phone: Start: 06-18-2015 End: 06-18-2015 BUTCHER APPRENTICE [facility] Work Phone: Start: 06-18-2015 End: 06-18-2015 Follow Up Appt 6 months Follow Up Appt 6 months [facility] Work Phone: Start: 11-19-2014 End: 11-19-2014 Ecg routine ecg w/least 12 lds w/i&r EKG (In office) [facility] Work Phone: Start: 11-19-2014 End: 11-19-2014 Follow Up Appt 6 months Follow Up Appt 6 months [facility] Work Phone: Start: 11-19-2014 End: 11-19-2014 MMM MMM [facility] Work Phone: Start: 11-19-2014 End: 11-19-2014 Electrocardiogram, complete EKG (In office) [facility] Work Phone: Start: 11-19-2014 End: 11-19-2014 Follow Up Appt 6 months Follow Up Appt 6 months [facility] Work Phone: Start: 11-19-2014 End: 11-19-2014 MMM MMM [facility] Work Phone: Start: 08-05-2014 End: 08-05-2014 BUTCHER APPRENTICE BUTCHER APPRENTICE [facility] Work Phone: Start: 08-05-2014 End: 08-05-2014 Ecg routine ecg w/least 12 lds w/i&r EKG (In office) [facility] Work Phone: Start: 08-05-2014 End: 08-05-2014 Follow Up Appt 3 months Follow Up Appt 3 months [facility] Work Phone: Start: 08-05-2014 End: 08-05-2014 BUTCHER APPRENTICE BUTCHER APPRENTICE [facility] Work Phone: Start: 08-05-2014 End: 08-05-2014 Electrocardiogram, complete EKG (In office) [facility] Work Phone: Start: 08-05-2014 End: 08-05-2014 Follow Up Appt 3 months Follow Up Appt 3 months [facility] Work Phone: Start: 04-16-2014 End: 04-16-2014 BUTCHER APPRENTICE BUTCHER APPRENTICE [facility] Work Phone: Start: 04-16-2014 End: 04-16-2014 Ecg routine ecg w/least 12 lds w/i&r EKG (In office) [facility] Work Phone: Start: 04-16-2014 End: 04-16-2014 Follow Up Appt 1 year Follow Up Appt 1 year [facility] Work Phone: Start: 04-16-2014 End: 04-16-2014 BUTCHER APPRENTICE BUTCHER APPRENTICE [facility] Work Phone: Start: 04-16-2014 End: 04-16-2014 Electrocardiogram, complete EKG (In office) [facility] Work Phone: Start: 04-16-2014 End: 04-16-2014 Follow Up Appt 1 year Follow Up Appt 1 year [facility] Work Phone: Start: 10-20-2013 End: 04-27-2015 *Hepatic Function Panel *Hepatic Function Panel [facility] Work Phone: Start: 10-20-2013 End: 04-27-2015 Lipid panel [AGGREGATE] *Lipid Profile CC PCP [facility] Work Phone: Start: 10-20-2013 End: 04-27-2015 *Hepatic Function Panel *Hepatic Function Panel [facility] Work Phone: Start: 10-20-2013 End: 04-27-2015 Lipid panel [AGGREGATE] *Lipid Profile CC PCP [facility] Work Phone: Start: 04-17-2013 End: 04-17-2013 Follow Up Appt 1 year Follow Up Appt 1 year [facility] Work Phone: Start: 04-17-2013 End: 04-17-2013 MMM MMM [facility] Work Phone: Start: 04-17-2013 End: 04-17-2013 Follow Up Appt 1 year Follow Up Appt 1 year [facility] Work Phone: Start: 04-17-2013 End: 04-17-2013 MMM MMM [facility] Work Phone: Start: 10-16-2012 End: 11-11-2012 *Hepatic Function Panel *Hepatic Function Panel [facility] Work Phone: Start: 10-16-2012 End: 10-16-2012 BUTCHER APPRENTICE BUTCHER APPRENTICE [facility] Work Phone: Start: 10-16-2012 End: 10-16-2012 Follow Up Appt 6 months Follow Up Appt 6 months [facility] Work Phone: Start: 10-16-2012 End: 11-19-2012 Lipid panel [AGGREGATE] *Lipid Profile CC PCP [facility] Work Phone: Start: 10-16-2012 End: 11-11-2012 *Hepatic Function Panel *Hepatic Function Panel [facility] Work Phone: Start: 10-16-2012 End: 10-16-2012 BUTCHER APPRENTICE BUTCHER APPRENTICE [facility] Work Phone: Start: 10-16-2012 End: 10-16-2012 Follow Up Appt 6 months Follow Up Appt 6 months [facility] Work Phone: Start: 10-16-2012 End: 11-19-2012 Lipid panel [AGGREGATE] *Lipid Profile CC PCP [facility] Work Phone: Start: 04-19-2012 End: 04-19-2012 Ecg routine ecg w/least 12 lds w/i&r EKG (In office) [facility] Work Phone: Start: 04-19-2012 End: 04-19-2012 Follow Up Appt 6 months Follow Up Appt 6 months [facility] Work Phone: Start: 04-19-2012 End: 04-19-2012 MMM MMM [facility] Work Phone: Start: 04-19-2012 End: 04-19-2012 Electrocardiogram, complete EKG (In office) [facility] Work Phone: Start: 04-19-2012 End: 04-19-2012 Follow Up Appt 6 months Follow Up Appt 6 months [facility] Work Phone: Start: 04-19-2012 End: 04-19-2012 MMM MMM [facility] Work Phone: Patient Education DYSPHAGIA [facility] Work Phone: Progress note 12-21-2020 Note Date & Type Note Facility 12-21-2020 Note HNO ID: [id number] Author: Mike Gtz MD Service: ? Author Type: Physician Type: Progress Notes Filed: 12/21/2020 6:57 PM Note Text: PRIMARY CARE PHYSICIAN: Rui Rea [address] [place] [address] REFERRING PHYSICIAN: Jazmin Cheng, PAC ([facility]) Reynaldo Thapa MD [facility] [address] [facility] Phys[facility] suites [facility] [id number] Patient Care Team: Rui Rea MD as PCP - General (Family Practice) Reynaldo Thapa as Specialty Director Internal Control (Cardiology) CHIEF COMPLAINT: Evaluation of arrhythmia HISTORY OF PRESENT ILLNESS: Ms. Shultz is a 75 year old female who presents today with her daughter for evaluation of atrial fibrillation. She believes that she was diagnosed with atrial fibrillation in about 1997 when she was about 52 years old. She does not remember very much specifics about her treatment and even how much arrhythmia that she experienced, although it seems that for about two decades she had only occasional brief episodes of arrhythmia. She does not recall ever being treated with an antiarrhythmic drug until she came to [place] about 12 years ago. The episodes of arrhythmia, with symptoms of palpitation (she refers to it as a tingle in the chest) and also fatigue and effort intolerance, have been occurring with progressively increasing frequency and longer duration. She does not tend to experience shortness of breath at rest or with exertion with the episodes, no chest pain or severe lightheadedness near syncope or syncope. I have not yet been able to obtain detailed medical records about her treatment history, and she does not recall very much details. It seems that at some point she was treated with flecainide, she thinks for a couple of years. Available medical records do indicate that she underwent electrical cardioversion in January 2018, again in April 2019 and also July 2019. She was more recently being considered for electrical cardioversion but she was found to have spontaneously converted to sinus rhythm. She wore a playground monitor for about 30 days in October 2020, results not available to me at this point but she and her daughter state that she was in atrial fibrillation most of the time. Evidently there was evidence from that cardiac monitoring that Ms. Shultz is not always or even often aware of the atrial fibrillation. She seems more aware when the heart rates are faster, and that has been the case more recently because some of her medications were discontinued. Cardiac monitoring evidently had revealed some pauses or bradycardia. So this has complicated the rate control medication treatment options, as she has a tendency for bradycardia or pauses. With the reduction or limitation of certain heart medications, she has been more aware of the atrial fibrillation, experiencing more palpitations particularly when the heart rate increases. I have confirmed and edited as necessary, the PFSH and ROS obtained by others. PAST MEDICAL HISTORY Diagnosis Date - Anticoagulant long-term use indication: stroke prevention atrial fibrillation - At risk for stroke [id number] = 3 (HTN, age, female gender) - Bradycardia - HTN (hypertension) - Mixed hyperlipidemia - Persistent atrial fibrillation (HCC) diagnosed about 1997; asymptomatic or minimally symptomatic when ventricular rates are under control; treatment with flecainide failed, recurrent arrhythmia despite flecainide and electrical cardioversion(s) PAST SURGICAL HISTORY Procedure Laterality Date - CARDIAC MONITORING CONTINUOUS 10/2020 30-day cardiac monitoring - CARDIOVERSION, ELECTIVE, ELECTRICAL 01/2018 - CARDIOVERSION, ELECTIVE, ELECTRICAL 04/2019 - CARDIOVERSION, ELECTIVE, ELECTRICAL 07/21/2019 - ECHOCARDIOGRAM 11/01/2020 - LEFT HEART CATH,PERCUTANEOUS Left 07/29/2008 - LIGATE FALLOPIAN TUBE 1981 - REMOVAL GALLBLADDER 1977 SOCIAL HISTORY Social History Tobacco Use - Smoking status: Never Smoker - Smokeless tobacco: Never Used Substance Use Topics - Alcohol use: No - Drug use: Not on file FAMILY HISTORY Problem Relation Age of Onset - Heart Attack Mother - Arthritis Mother - Angioedema Mother - Hypertension Mother - Prostate Cancer Father - Breast Cancer Sister - Diabetes Brother - Heart Failure Brother - Heart Attack Brother - Prostate Cancer Brother - COPD Brother - COPD Brother - Hypertension Brother - Cancer Paternal Grandfather ALLERGIES: ALLERGIES Allergen Reactions - Nitrofurantoin Unknown - Trimethoprim GI Upset - Bactrim [Sulfametho* GI Upset, Vomiting - Codeine GI Upset, Vomiting - Loratadine GI Upset, Vomiting - Methylprednisolone GI Upset, Vomiting Tolerated prednisone in 2020 - Mobic [Meloxicam] Unknown - Multaq [Dronedarone] Unknown - Penicillins Shortness of Breath MEDICATIONS: furosemide (LASIX) 40 mg ta (more content not included)... [facility] Progress note 11-16-2020 Note Date & Type Note Facility 11-16-2020 Note HNO ID: [id number] Author: Johana Knight APRN.BICYCLE I ASSEMBLER Service: ? Author Type: Nurse Practitioner Type: Progress Notes Filed: 11/16/2020 11:52 AM Note Text: Subjective HPI Shirley Shultz is a 75 year old female who presents with left upper extremity redness, warmth and swelling. She was stung by a wasp yesterday. She denies fever, chills, or respiratory symptoms. Review of Systems Constitutional: Negative for chills and fever. HENT: Negative for sore throat. Respiratory: Negative for cough and shortness of breath. Cardiovascular: Negative. Skin: Positive for itching. Negative for rash. BP 132/76 Pulse 86 Temp 36.9 ?C (98.5 ?F) Resp 16 Wt 96.6 kg (213 lb) SpO2 96% No past medical history on file. No past surgical history on file. ALLERGIES Bactrim [Sulfamethoxazole], Codeine, Loratadine, Methylprednisolone, Mobic [Meloxicam], Multaq [Dronedarone], and Penicillins MEDICATIONS Cholecalciferol, Vitamin D3, (VITAMIN D) 1,000 unit cap Take 1,000 Units by mouth once daily. rivaroxaban (XARELTO) 20 mg tablet Take 20 mg by mouth daily with dinner. diclofenac sodium (VOLTAREN) 1 % topical gel Apply 2 g to affected area four times daily. metoprolol tartrate, short acting, (LOPRESSOR) 25 mg tablet Take 25 mg by mouth twice daily. doxycycline hyclate (VIBRAMYCIN) 100 mg capsule Take 1 capsule by mouth twice daily for 10 days. predniSONE (DELTASONE) 10 mg tablet Take 4 tabs daily x 3 days, then 3 tabs x 3 days, 2 tabs x 3 days, then 1 tab x3 days with food. flecainide (TAMBOCOR) 100 mg tablet Take 50 mg by mouth twice daily. nebivolol (BYSTOLIC) 5 mg tablet Take 5 [...] No family history on file. Social History Tobacco Use - Smoking status: Never Smoker - Smokeless tobacco: Never Used Substance Use Topics - Alcohol use: No - Drug use: Not on file Objective Physical Exam Skin: General: Skin is warm and dry. Capillary Refill: Capillary refill takes less than 2 seconds. Findings: Erythema present. ASSESSMENT/PLAN: 1. Cellulitis of left upper extremity - ICD9: 682.3, ICD10: L03.114 (primary diagnosis) - Begin treatment with doxycycline - No lymphangetic streaking, this was defined for patient to watch for and to seek medical care immediately if appears - Area of cellulitis defined with pen, seek further attention if this area continues to enlarge - DOXYCYCLINE HYCLATE 100 MG CAPSULE 2. Bee sting reaction, undetermined intent, initial encounter - ICD9: 989.5, E980.9, ICD10: T63.444A - PREDNISONE 10 MG TABLET - ice packs to area - Follow-up with your PCP in 3-5 days if symptoms have not improved or sooner if symptoms worsen - Discussed red flags and need for immediate medical evaluation if any occur. - Discussed supportive care treatment with fluids, rest and analgesia. - Discussed expected course of illness Johana Knight, ANAM.JONAS [facility] Summary Purpose Family History No Family History Records FoundNo Family History Records Found Advance Directives No Advanced Directives Records FoundNo Advanced Directives Records Found Additional Source Comments INFORMATION SOURCE (unrecogn ized section and content) DATE CREATED AUTHOR AUTHOR'S LOCO ATARSENIO 03/25/2021 [facility] FOR RECORDS PERTAINING TO PATIENTS WHO ARE OR HAVE BEEN ENROLLED IN A CHEMICAL DEPENDENCY/SUBSTANCEABUSE PROGRAM, SOME INFORMATION MAY BE OMITTED. This clinical summary was aggregated from multiple sources. Caution should be exercised in using it in the provision of clinical care. This summary normalizes information from multiple sources, and as a consequence, information in this document may materially change the coding, format and clinical context of patient data. In addition, data may be omitted in some cases. CLINICAL DECISIONS SHOULD BE BASED ON THE PRIMARY CLINICAL RECORDS. [employer] provides no warranty or guarantee of the accuracy or completeness of information in this document.
[2023-02-20 12:15] LABS: ALB/GLOB Ratio 1.2 RATIO (0.9-2.4); AST(SGOT) 15 U/L (15-37); Alanine Aminotransfer ALT/SGPT 19 U/L (13-56); Albumin, Serum 3.6 g/dL (3.2-5.0); Alkaline Phosphatase 83 U/L (45-117); Anion Gap 4 (5-15); BUN 17 mg/dL (7-18); BUN/Creat Ratio 14.2 RATIO (10-20); Calcium,Total 9.4 mg/dL (8.5-10.1); Chloride 108 mmol/L (98-107); EST Glomerular Filtration Rate 46 mL/min (>60); Est Glom Filt Rate - Afr Amer 56 mL/min (>60); Globulin 3.1 g/dL (2.2-4.2); Glucose 116 mg/dL (74-106); Potassium 4.3 mmol/L (3.5-5.1); Protein, Total 6.7 g/dL (6.4-8.2); Sodium Level 140 mmol/L (136-145)
[2023-02-20 12:20] LABS: PTHIN 211.2 pg/mL (18.4-80.1)
[2023-02-20 12:44] LABS: Vitamin D,25 Hydroxy 36.9 ng/mL
== END | disposition home or self-care (01) ==
LOC: BFHLAB 11:20
PROVIDERS: PCP Family Medicine; Referring Provider Family Medicine; Visit Provider Family Medicine
DX: E21.3 Hyperparathyroidism, unspecified (principal); E55.9 Vitamin D deficiency, unspecified
CPT/HCPCS: 36415; 80053; 82306; 82330; 83970

== ENCOUNTER 2023-03-08 05:58 | Day surgery (SDC) | payer MEDICARE, SELFPAY ==
[2023-03-08] VITALS (12 sets, daily range): BP systolic 111–131; BP diastolic 58–80; PULSE 55–88; RESP 16–18; TEMP 36.1–36.7; O2SAT 92–98; BMI 36.5
--- NOTE | 2023-03-08 | PARA_PTH ---
PATHOLOGY RESULTS PATIENT: SAVANNA MCDONOUGH LOC: [facility] U#:[id number] AGE/SX: 77/F ROOM: RE03/08/[address]: Dr. Azar Hammonds MD : [id number] BED: DIS: 03/08/2023 SPEC #: [id number] RECD: 03/08/23 09:12 STATUS: FAITH JULIANA #: [id number] IVELISSE: 03/08/23 00:[address]: Azar Hammonds DEPT: SURGICAL PATHOLOGY RECD BY: Lolly Castillo ENTERED: 03/08/23 10:14 SP TYPE: PARATHY OTHR DR: Dr. Bria Spencer MD Tissues: Parathyroid Parathyroid Procedures: Frozen Section (charge) Surgery Specimen Level IV HEADER OPERATION: Parathyroidectomy x2 PRE-OP DIAGNOSIS: Hyperparathyroidism TISSUE SUBMITTED: A - Parathyroid, left superior, frozen section, B - Parathyroid tissue, left inferior, frozen section FROZEN SECTION DIAGNOSIS A. Parathyroid, left superior, excision: Parathyroid tissue (262 mg). B. Parathyroid tissue, left inferior, excision: Hyperplastic parathyroid tissue (579 mg). SJ:ramonita 03/08/2023 MICROSCOPIC DIAGNOSIS A. Left superior parathyroid, excision: Unremarkable parathyroid tissue. See comment. B. Left inferior parathyroid, excision: Hyperplastic parathyroid tissue (579 mg). See comment. SJ:ramonita 03/09/2023 COMMENT A. The specimen also shows adipose tissue adjacent to the parathyroid tissue. B. Unremarkable parathyroid tissue is also noted adjacent to the hyperplastic parathyroid tissue with oncocytic features. The findings may represent parathyroid adenoma. Clinical correlation and appropriate follow up are necessary. Case has been reviewed in consultation with Dr. Lynn who concurs with the above diagnosis. IDC:AM MICROSCOPIC DESCRIPTION Slides are reviewed. GROSS DESCRIPTION A - Received fresh for frozen section diagnosis labeled with the patient's name is a specimen designated left superior parathyroid. The specimen consists of an ovoid piece of pink-brown soft tissue measuring 2.0 x 0.4 x 0.3 cm and weighing 262 mg. The entire specimen is submitted for frozen section diagnosis in one cassette. B - Received fresh for frozen section diagnosis labeled with the patient's name is a specimen designated left inferior parathyroid. The specimen consists of an ovoid piece of pink-brown soft tissue measuring 1.5 x 1.0 x 0.5 cm and weighing 579 mg. The specimen is bisected and submitted for frozen section diagnosis in two cassettes as follows: 1 - frozen section, 2 - rest of the specimen. / SJ:rg 03/08/2023 TC:1 CPT: 41967 x2, 19186 x2
--- OUTSIDE RECORDS SUMMARY | 2023-03-08 06:02 | XMS RPT_ITS | CCD ---
Author Name Unknown Address [facility] [address] [place] [address] Organization [facility] Care Team Providers Care Sterilizer Operator Name Role Phone Nellie Topete Unavailable Unavailable Nellie Topete Unavailable Unavailable SHARON Baltazar, Abigail Christine Unavailable UnavailMarta Ward Unavailable Unavailable Marta Urrutia Unavailable Unavailable Nellie Topete Unavailable Unavailable Allergies Allergy Classification Reported Allergen(s) Allergy Type Date of Onset Reaction(s) Facility (12 sources) codeine drug allergy 04-18-19 13 N&V [facility] Work Phone: [phone] (6 sources) dronedarone drug allergy 04-18-19 13 Severe GI intolerance [facility] Work Phone: [phone] (6 sources) loratadine drug allergy 04-18-19 13 N&V, diarrhea [facility] Work Phone: [phone] (12 sources) meloxicam; Translations: [MOBIC] allergy to substance 08-05-19 15 N&V [facility] Work Phone: [phone] (6 sources) methylprednisoLONE drug allergy 04-18-19 13 N&V, diarrhea [facility] Work Phone: [phone] (12 sources) Penicillins (Antibiotic) drug allergy 04-18-19 13 N&V [facility] Work Phone: [phone] (6 sources) sulfamethoxazole / trimethoprim drug allergy 04-18-19 13 Hives, nausea [facility] Work Phone: [phone] (6 sources) CILLINS drug allergy 04-18-19 13 [facility] Work Phone: [phone] Medications Completed/Discontinued Medications Medication Drug Class(es) Dates Sig (Normalized) Sig (Original) amiodarone hydrochloride 200 mg oral tablet (12 sources) Antiarrhythmic Start: 07-23-2014 End: 08-05-2014 take 1 tablet by mouth once daily AMIODARONE HCL 200 MG TABS One tablet by mouth daily AMIODARONE HCL [id number] Reynaldo Thapa MD aspirin 81 mg oral tablet (18 sources) Nonsteroidal Anti-inflammatory Drug Start: 04-19-2012 End: 08-05-2014 ASPIRIN 81 MG TABS ASPIRIN [id number] Reynaldo Thapa MD Problems Active Problems Problem Classification [...] Da te Episodic/Chronic Other aftercare (6 sources) alf (current) use of anticoagulants; Translations: [alf (current) use of anticoagulants] Onset: 11-18-2014 11-18-2014 [...] (Body Mass Index) 35.36 kg/m2 Marta Young [facility] Work Phone: 12-29-2016 10:52-0500 BP Diastolic 78 mm[Hg] Marta Young [facility] Work Phone: 12-29-2016 10:52-0500 BP Systolic 120 mm[Hg] Marta Young [facility] Work Phone: 12-29-2016 10:52-0500 Height 162.56 cm Marta Young [facility] Work Phone: 12-29-2016 10:52-0500 Pulse (Heart Rate) 60 /min Marta Young [facility] Work Phone: 12-29-2016 10:52-0500 Respiratory Rate 20 /min Marta Young [facility] Work Phone: 12-29-2016 10:52-0500 Weight 93.44 kg Marta Young [facility] Work Phone: 06-30-2016 10:41-0400 Heart rate 57 /min Nellie Young [facility] Work Phone: 06-30-2016 10:28-0400 BMI (Body Mass Index) 37.24 kg/m2 Nellie Young [facility] Work Phone: 06-30-2016 10:28-0400 BP Diastolic [...] Detail Performing Clinician Start: 12-29-2016 End: 12-29-2016 CARD PROCESSING CLERK Jazmin Cheng PA-C Work Phone: Start: 12-29-2016 [...] months Nanci Rios Start: 08-05-2014 End: 08-05-2014 CARD PROCESSING CLERK Reynaldo Thapa MD Start: 08-05-2014 End: 08-06-2014 [...] PA-C Work Phone: Start: 04-16-2014 End: 04-16-2014 CARD PROCESSING CLERK Jazmin Cheng PA-C Work Phone: Start: 04-16-2014 [...] 04-17-2013 End: 04-17-2013 RODOLFO Thapa MD Start: 04-17-2013 End: 04-17-2013 Follow Up Appt 1 year Reynaldo Thapa MD Start: 04-17-2013 End: 04-17-2013 RODOLFO Thapa MD Start: 10-16-2012 End: 11-17-2012 *Hepatic Function Panel Jazmin carlson PA-C Work Phone: Start: 10-16-2012 End: 10-16-2012 CARD PROCESSING CLERK Jazmin Cheng PA-C Work Phone: Start: 10-16-2012 End: 10-16-2012 Follow Up Appt 6 months Jazmin carlson PA-C Work Phone: Start: 10-16-2012 End: 11-19-2012 Lipid 1996 panel - Serum or Plasma Jazmin Cheng PA-C Work Phone: Start: 10-16-2012 End: 11-17-2012 *Hepatic Function Panel Jazmin carlson PA-C Work Phone: Start: 10-16-2012 End: 10-16-2012 CARD PROCESSING CLERK Jazmin Cheng PA-C Work Phone: Start: 10-16-2012 [...] Group Work Phone: Start: 12-29-2016 End: 12-29-2016 CARD PROCESSING CLERK [facility] Work Phone: Start: 12-29-2016 End: 12-29-2016 Follow Up Appt 6 months Follow Up Appt 6 months [facility] Work Phone: Start: 12-29-2016 End: 12-29-2016 Appointment Appointment [facility] Work Phone: Start: 12-29-2016 End: 12-29-2016 Appointment Appointment [facility] Work Phone: Start: 06-30-2016 End: 12-19-2016 Ecg routine ecg w/least 12 lds w/i&r EKG (In office) [facility] Work Phone: Start: 06-30-2016 End: 12-19-2016 Follow Up Appt 6 months Follow Up Appt 6 months [facility] Work Phone: Start: 06-30-2016 End: 12-19-2016 MMNanci REYNOLDS [facility] Work Phone: Start: 06-30-2016 End: 06-30-2016 Appointment Appointment [facility] Work Phone: Start: 06-30-2016 End: 06-30-2016 Electrocardiogram, complete EKG (In office) [facility] Work Phone: Start: 06-30-2016 End: 06-30-2016 Follow Up Appt 6 months Follow Up Appt 6 months [facility] Work Phone: Start: 06-30-2016 End: 06-30-2016 MMM MMM [facility] Work Phone: Start: 12-28-2015 End: 12-28-2015 Follow Up Appt 6 months Follow Up Appt 6 months [facility] Work Phone: Start: 12-28-2015 End: 12-28-2015 MMM MMM [facility] Work Phone: Start: 12-28-2015 End: 12-28-2015 Follow Up Appt 6 months Follow Up Appt 6 months [employer] Work Phone: Start: 12-28-2015 End: 12-28-2015 MMM MMM [facility] Work Phone: Start: 09-27-2015 End: 09-27-2015 Colonoscopy flx dx w/collj spec when pfrmd Colonoscopy [facility] Work Phone: Start: 09-27-2015 End: 09-27-2015 Esophagogastroduodenoscopy transoral diagnostic Upper gastrointestinal endoscopy [employer] Work Phone: Start: 09-27-2015 End: 09-27-2015 Diagnostic colonoscopy Colonoscopy [facility] Work Phone: Start: 09-27-2015 End: 09-27-2015 Uppr gi endoscopy, diagnosis Upper gastrointestinal endoscopy [facility] Work Phone: Start: 09-20-2015 End: 09-24-2015 Follow Up after Imaging/labs Follow Up after Imaging/labs [employer] [place] Phone: Start: 09-20-2015 End: 09-24-2015 Primary Care Physician Primary Care Physician [facility] Work Phone: Start: 09-20-2015 End: 09-24-2015 [facility]adex esophagus X-Ray, Esophagus & Pharynx [facility] Work Phone: Start: 09-20-2015 End: 09-24-2015 Contrast x-ray, esophagus X-Ray, Esophagus & Pharynx [facility] Work Phone: Start: 09-20-2015 End: 09-24-2015 Follow Up after Imaging/labs Follow Up after Imaging/labs [facility] Work Phone: Start: 09-20-2015 End: 09-24-2015 Primary Care Physician Primary Care Physician [facility] Work Phone: Start: 06-18-2015 End: 06-18-2015 [facility] [employer] [facility] Work Phone: Start: 06-18-2015 End: 06-18-2015 Follow Up Appt 6 months Follow Up Appt 6 months [facility] Work Phone: Start: 06-18-2015 End: 06-18-2015 CARD PROCESSING CLERK [employer] [facility] Work Phone: Start: 06-18-2015 End: 06-18-2015 Follow Up Appt 6 months Follow Up Appt 6 months [facility] Work Phone: Start: 11-19-2014 End: 11-19-2014 Ecg routine ecg w/least 12 lds w/i&r EKG (In office) [facility] Work Phone: Start: 11-19-2014 End: 11-19-2014 Follow Up Appt 6 months Follow Up Appt 6 months [facility] Work Phone: Start: 11-19-2014 End: 11-19-2014 MMM MMM [facility] Work Phone: Start: 11-19-2014 End: 11-19-2014 Electrocardiogram, complete EKG (In office) [facility] Work Phone: Start: 11-19-2014 End: 11-19-2014 Follow Up Appt 6 months Follow Up Appt 6 months [facility] Work Phone: Start: 11-19-2014 End: 11-19-2014 MMM MMM [facility] Work Phone: Start: 08-05-2014 End: 08-05-2014 CARD PROCESSING CLERK CARD PROCESSING CLERK [facility] Work Phone: Start: 08-05-2014 End: 08-05-2014 Ecg routine ecg w/least 12 lds w/i&r EKG (In office) [facility] Work Phone: Start: 08-05-2014 End: 08-05-2014 Follow Up Appt 3 months Follow Up Appt 3 months [facility] Work Phone: Start: 08-05-2014 End: 08-05-2014 CARD PROCESSING CLERK CARD PROCESSING CLERK [facility] Work Phone: Start: 08-05-2014 End: 08-05-2014 Electrocardiogram, complete EKG (In office) [facility] Work Phone: Start: 08-05-2014 End: 08-05-2014 Follow Up Appt 3 months Follow Up Appt 3 months [facility] Work Phone: Start: 04-16-2014 End: 04-16-2014 CARD PROCESSING CLERK CARD PROCESSING CLERK [facility] Work Phone: Start: 04-16-2014 End: 04-16-2014 Ecg routine ecg w/least 12 lds w/i&r EKG (In office) [facility] Work Phone: Start: 04-16-2014 End: 04-16-2014 Follow Up Appt 1 year Follow Up Appt 1 year [facility] Work Phone: Start: 04-16-2014 End: 04-16-2014 CARD PROCESSING CLERK CARD PROCESSING CLERK [facility] Work Phone: Start: 04-16-2014 End: 04-16-2014 Electrocardiogram, complete EKG (In office) [facility] Work Phone: Start: 04-16-2014 End: 04-16-2014 Follow Up Appt 1 year Follow Up Appt 1 year [facility] Work Phone: Start: 10-20-2013 End: 04-27-2015 *Hepatic Function Panel *Hepatic Function Panel [facility] Work Phone: Start: 10-20-2013 End: 04-27-2015 Lipid panel [AGGREGATE] *Lipid Profile CC PCP [facility] Work Phone: Start: 10-20-2013 End: 04-27-2015 *Hepatic Function Panel *Hepatic Function Panel [facility] Work Phone: Start: 10-20-2013 End: 04-27-2015 Lipid panel [AGGREGATE] *Lipid Profile CC PCP [facility] Work Phone: Start: 04-17-2013 End: 04-17-2013 Follow Up Appt 1 year Follow Up Appt 1 year [facility] Work Phone: Start: 04-17-2013 End: [...] Group Work Phone: Start: 10-16-2012 End: 10-16-2012 CARD PROCESSING CLERK CARD PROCESSING CLERK [facility] Work Phone: Start: 10-16-2012 End: 10-16-2012 Follow Up Appt 6 months Follow Up Appt 6 months [facility] Work Phone: Start: 10-16-2012 End: 11-19-2012 Lipid panel [AGGREGATE] *Lipid Profile CC PCP [facility] Work Phone: Start: 10-16-2012 End: 11-11-2012 *Hepatic Function Panel *Hepatic Function Panel [facility] Work Phone: Start: 10-16-2012 End: 10-16-2012 CARD PROCESSING CLERK CARD PROCESSING CLERK [facility] Work Phone: Start: 10-16-2012 End: 10-16-2012 Follow Up Appt 6 months Follow Up Appt 6 months [facility] Work Phone: Start: 10-16-2012 End: 11-19-2012 Lipid panel [AGGREGATE] *Lipid Profile CC PCP [facility] Work Phone: Start: 04-19-2012 End: 04-19-2012 Ecg routine ecg w/least 12 lds w/i&r EKG (In office) [facility] Work Phone: Start: 04-19-2012 End: 04-19-2012 Follow Up Appt 6 months Follow Up Appt 6 months [facility] Work Phone: Start: 04-19-2012 End: 04-19-2012 MMM MMM [facility] Work Phone: Start: 04-19-2012 End: 04-19-2012 Electrocardiogram, complete EKG (In office) [facility] Work Phone: Start: 04-19-2012 End: 04-19-2012 Follow Up Appt 6 months Follow Up Appt 6 months [facility] Work Phone: Start: 04-19-2012 End: 04-19-2012 MMM MMM [facility] Work Phone: Patient Education DYSPHAGIA [facility] Work Phone: Progress note 12-21-2020 Note Date & Type Note Facility 12-21-2020 Note HNO ID: [id number] Author: Mike Gtz MD Service: ? Author Type: Physician Type: Progress Notes Filed: 12/21/2020 6:57 PM Note Text: PRIMARY CARE PHYSICIAN: Rui Rea [id number] [place] [id number] REFERRING PHYSICIAN: Jazmin Cheng, PAC ([facility]) Reynaldo Thapa MD [facility] [address] [facility] [address] [id number] Patient Care Team: Rui Rea MD as PCP - General (Family Practice) Reynaldo Thapa as Specialty Rubber Goods Finisher (Cardiology) CHIEF COMPLAINT: Evaluation of arrhythmia HISTORY [...] an antiarrhythmic drug until she came to [place] about 12 years ago. The episodes of [...] converted to sinus rhythm. She wore a site monitor for about 30 days in October [...] atrial fibrillation - At risk for stroke [id number] = 3 (HTN, age, female gender) - [...] 40 mg ta (more content not included)... [facility] Progress note 11-16-2020 Note Date & Type Note Facility 11-16-2020 Note HNO ID: [id number] Author: Johana Knight APRN.PAEDIATRICIAN Service: ? Author Type: Nurse Practitioner Type: [...] expected course of illness Johana Knight, ANAM.JONAS [facility] Summary Purpose Family History No Family History Records FoundNo Family History Records Found Advance Directives No Advanced Directives Records FoundNo Advanced Directives Records Found Additional Source Comments INFORMATION SOURCE (unrecogn ized section and content) DATE CREATED AUTHOR AUTHOR'S LOCO ATARSENIO 03/25/2021 [facility] FOR RECORDS PERTAINING TO PATIENTS WHO [...] BE BASED ON THE PRIMARY CLINICAL RECORDS. [employer] provides no warranty or guarantee of the accuracy or completeness of information in this document.
[2023-03-08] MEDS: Lactated Ringers 1,000 ML 15 ML IV ×2 (06:33→11:15)
--- NOTE | 2023-03-08 06:41 | EKG12_ITS ---
Test Reason : PRE-OP Blood Pressure : / mmHG Vent. Rate : 089 BPM Atrial Rate : 091 BPM P-R Int : 000 ms QRS Dur : 160 ms QT Int : 520 ms P-R-T Axes : 000 -59 077 degrees QTc Int : 632 ms Ventricular-paced rhythm Abnormal ECG When compared with ECG of 10-FEB-2021 01:19, Electronic ventricular pacemaker has replaced Atrial fibrillation Confirmed by ED HURT, YUE ([id number]), city editor ARJUN OLIVA ([id number]) on 03/09/2023 1:35:15 PM Referred By: Azar Hammonds Confirmed By:YUE WARD MD
[2023-03-08 06:47] LABS: Hematocrit 48.2 % (37-47); Hemoglobin 15.5 g/dL (12.0-15.0); Mean Corp Hgb Conc 32.2 g/dL (32-36); Mean Corpuscular Hgb 30.1 pg (27.0-32.0); Mean Corpuscular Volume 93.6 fL (81-99); Mean Platelet Vol. 10.3 fl (6.2-12.0); Platelet Count 174 K/mm3 (150-450); RBC Distribution Width SD 45.1 fl (35.1-43.9); Red Blood Count 5.15 M/mm3 (4.2-5.4); White Blood Count 7.4 K/mm3 (4.4-11.0)
--- NOTE | 2023-03-08 07:39 | HP.PCM_ITS ---
History and Physical Date of Admission: 03/08/23 Date of Service: 02/27/23 MR#: [id number] Acct: [id number] Name: SAVANNA SHULTZ Rep #: [id number] : 1945 Provider: Dr. Azar Hammonds MD Age/Sex: 77/F Location: [facility] Status: Signed Intake Vital Signs 12/20/2313:56 02/27/2407:06 Height 5 ft 4 in 5 ft 4 in Weight: 218 lb 213 lb BMI 37.4 36.6 BP 117/70 110/73 Blood Pressure Location Rt brachial Rt brachial Position Sitting Sitting Respiration 17 17 Pulse 67 60 Pulse Source Monitor Monitor Temp 97.2 F L Temp Source Temporal Pulse Oximetry (%) 97 96 Oxygen Delivery Method room air room air Intake Visit Reasons: DISCUSS SURGERY Chief Complaint: discuss surgery Is patient in pain?: No Allergies dronedarone [From Multaq] Allergy (Severe, Verified 02/27/23 08:07) [facility] [place] (Intermediate, Verified 02/27/23 08:07) PT UNSURE OF REACTIONmeloxicam [From Mobic] Allergy (Intermediate, Verified 02/27/23 08:07) PT UNSURE OF REACTIONnitrofurantoin Allergy (Intermediate, Verified 02/27/23 08:07) PT UNSURE OF REACTIONPenicillins Allergy (Intermediate, Verified 02/27/23 08:07) PT UNSURE OF REACTIONsulfamethoxazole [From Bactrim] Allergy (Intermediate, Verified 02/27/23 08:07) PT UNSURE OF REACTIONtrimethoprim [From Bactrim] Allergy (Intermediate, Verified 02/27/23 08:07) PT UNSURE OF REACTION Medications cholecalciferol (vitamin D3) 25 mcg (1,000 unit) tablet 1,000 unit PO QDAY supplement 07/06/17 [History Confirmed 02/27/23] citalopram 20 mg tablet 20 mg PO DAILY 02/09/21 [History Confirmed 02/27/23] flecainide 150 mg tablet 150 mg PO Q12H #180 tabs 02/23/22 [Rx Confirmed 02/27/23] rivaroxaban 20 mg tablet (Xarelto) 20 mg PO QHS #90 tabs 08/01/22 [Rx Confirmed 02/27/23] metoprolol tartrate 100 mg tablet 100 mg PO BID #180 tabs 09/18/22 [Rx Confirmed 02/27/23] omeprazole 20 mg capsule,delayed release 20 mg PO DAILY 12/20/22 [History Confirmed 02/27/23] furosemide 40 mg tablet See Rx Instructions .Route .COMPLEX #90 tabs 02/26/23 [Rx Confirmed 02/27/23] sitagliptin phosphate 25 mg tablet (Januvia) 25 mg PO DAILY 02/27/23 [History Confirmed 02/27/23] [facility] Medical History Ambulates with cane Anxiety Arthritis Atrial fibrillation Atrophic vaginitis Back problem Cardiology follow-up encounter Cataracts, bilateral CPAP (continuous positive airway pressure) dependence Cystocele with rectocele Depression Dysphagia Essential (primary) hypertension Family history of cardiovascular disease Family history of diabetes mellitus Fecal incontinence History of atrial fibrillation History of detached retina repair History of diverticulitis History of echocardiogram History of hiatal hernia History of stress test HLD (hyperlipidemia) Hypokalemia Lichen sclerosus Non-smoker IRON (obstructive sleep apnea) Pacemaker Right renal stone Sleep apnea Symptomatic bradycardia Wears dentures Wears glasses Surgical History History of cardioversion (07/21/19) History of cholecystectomy (1977) History of cystoscopy History of left heart catheterization (07/29/08) History of permanent cardiac pacemaker placement (01/17/21) History of tubal ligation (1981) Family History Father Cancer Prostate cancerMother Myocardial infarction ArthritisSister Breast cancerBrother Diabetes CHF (congestive heart failure) Myocardial infarctionSon DiabetesOther Family history of cardiovascular disease Family history of diabetes mellitus Social History Smoking Status: Never smoker alcohol intake: never substance use type: does not use caffeine: No what type of physical activity do you participate in: walking frequency: 5-6 times per week seatbelt use: always do you feel safe at home: Yes additional social history: - retired HPI HPI HPI: Patient is a 77-year-old female who presents for evaluation of a diagnosis of primary hyperparathyroidism. They are referred from Dr. Spencer. Her last visit was 12/20/2022. She returns for conversation about an operation. In the interim she reports her only health history changes that she has been started on Januvia. She specifically denies any symptoms of recent kidney stones. Later in the visit she does remark that she has had frequent sensations as if there is a marble in her throat but after swallowing a couple of times this disappears. She confirms that there is a history of gastroesophageal reflux disease but this has been a chronic issue that is overall been under good control. Lastly at the conclusion of the visit she remarks of some bone ache that can be debilitating and wishes to know whether this is likely related to her hyperparathyroidism. Below is recapitulated from patient's prior visit for ease of review: Patient confirms that she had a history of kidney stones requiring lithotripsy in June of this year by Dr. Shay which occasion the work-up for this diagnosis. Patient has a history of osteopenia per DEXA imaging from October 2021. Patient has no history of pathologic fractures. Patient has no history of frequent dental caries or chipped teeth. Patient has no history of brittle fingernails. Patient has a chronic history of GERD since her 30s. Patient has no history of hypertension. Additional symptoms include: Some joint aches and weakness (patient cites specific example of unable to open jars). She states that she has been told she will need a knee replacement approximately 2 years ago but is interested in having this issue dealt with first. She also confirms some recent difficulty concentrating but denies any significant memory difficulty. Patient has no history of prior radiation exposure. Patient has no family history of other endocrinopathies. Patient does not have a diet high in dairy and cites that even her milk consumption is only oat milk. Patient's current labs are calcium: 10.1 mg/dL (11/08/2022) max of 10.3 on 2022, Vitamin D: 32.1 ng/mL (11/08/2022), PTH: 168.4 pg/mL (11/08/2022) range of 68.4-232.9 (09/15/2022) Current medications include: Vitamin D supplementation but no calcium supplementation. Imaging has been done thyroid ultrasound on 11/24/2022 followed by sestamibi on 12/14/2022. Ultrasound was read as negative thyroid ultrasound examination but sestamibi imaging showed persistent increase in tracer distribution defined in the left anterior neck caudal to the inferior pole of the thyroid lobe which may represent parathyroid adenoma . Patient is prescribed Xarelto for history of atrial fibrillation and pacemaker placement managed by the [place] [facility]. ROS General General: Yes fatigue; No weight change, appetite, colon cancer, breast cancer or weakness HEENT HEENT: Yes difficulty swallowing; No eye injury, eye surgery, swollen glands or hoarseness Endo Endocrine: Yes diabetes mellitus; No thyroid disease, thyroid cancer, Hair loss, heat intolerance or cold intolerance Skin Skin: No rash or changing moles Musc Musculoskeletal: Yes arthritis; No back problems, rheumatoid arthritis, gout or joint pain Cardio Cardiovascular: Yes pacemaker and atrial fibrillation; No murmur, heart disease, high blood pressure, heart attack, heart stent, palpitations, shortness of breat with exertion or chest pain Psych Psychiatric: No depression, anxiety or hearing voices Resp Respiratory: No shortness of breath, Yes sleep apnea, No cough, No COPD, No asthma, No emphysema and No wheezing Gastro Gastrointestinal: No abdominal pain, No nausea or vomiting, No diarrhea, No c onstipation, No blood in stool, Yes acid reflux, No hemorrhoids, No ulcers, No gallbladder problem and No black,tarry stools Eric Hematologic: Yes blood thinners, No blood disorders, No bleeding, No anemia and No blood clots Neuro Neurologic: No system reviewed and no additional complaints, except as documented, No as per HPI, No abnormal gait, No abnormal hearing, No abnormal movements, No abnormal speech, No behavioral changes, No burning sensations, No confusion, No convulsions, No disequilibrium, No dizziness, No localized weakness, No frequent falls, No headache(s), No lack of coordination, No loss of vision, No memory loss, Yes numbness, No other visual disturbances, No radicular pain, No restless legs, No sensory deficit, No syncope, Yes tingling, No tremor(s), No weakness and No other Exam Const General: cooperative Orientation: alert, awake and oriented x3 Other: Slow-moving and slow speaking Neck Other: Supple, no nodularity Inferior to the bilateral inferior poles of the thyroid gland identify hypoechoic areas that are candidates for parathyroid lesions. With color Doppler on the left there does appear to even be a feeding polar vessel. Assessment and Plan Assessment and Plan (1) Hyperparathyroidism, primary: Status: Acute Comment: This is a 77-year-old female that is diagnosed with primary hyperparathyroidism after a bout of kidney stones in June 2022. 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 Subsequent PTH and calcium testing showed that patient's calcium is at the higher end of normal with a significantly elevated PTH between 160 and 230. This is occurred in the setting of repleted vitamin D. I held a lengthy discussion with Ms. Healy today regarding first how the diagnosis of hyperparathyroidism is made, the symptoms that may be associated, and then the steps that followed towards localization. I have shared with her the results of both her ultrasound and her sestamibi imaging. I performed my own bedside ultrasound exam and identified 2 potential parathyroid adenomas in the right superior and left inferior positions. The left inferior position would correlate with patient's sestamibi imaging. With this positive localization study I have informed Ms. Shultz that we have both a surgical indication (her prior calcium oxalate kidney stones and evidence of osteopenia with DEXA imaging) and a surgical target. She is interested in proceeding with surgery, however, she shares a concern about family being unavailable to her over the next couple of months and wishes to postpone surgery until February. I have shared with her that we will need to update her H&P after the first of the year and then put her on the schedule. In the meantime we will look to obtain approval to hold her Xarelto 48 hours pre and post procedure. During today's visit patient related that she is now on Januvia and has had recent complaints of some globus sensation which may be due to reflux as well as some new bone pain. I do suspect the latter is related to her hyperparathyroidism. She has had updated labs that suggest a worsening of her PTH elevation but her calcium is actually in the range of normal. This all remains in the setting of a normal vitamin D level. Today I spent time reiterating the diagnosis of primary hyperparathyroidism and that this likely is able to be traced back to a single adenoma. Prior sestamibi imaging suggest that this would localize to the left side, however, in my independent ultrasound imaging identified 2 suspicious hypoechoic structures on the inferior aspect of the bilateral thyroid lobes. Therefore, I do have a suspicion for possible double adenoma. As such I have counseled Mrs. Shultz that she may require 4 gland exploration and a overnight stay. I also discussed with her that this would increase her risk for hypoparathyroidism and shared how the risk would be proportional for nerve injury as well. This discussion was facilitated with the use of hand drawings as well to illustrate the relevant anatomy. At the conclusion of our conversation patient stated that she felt like she had a better understanding of this issue and that it was not as complicated as she had first thought. Is also noted that cardiology has provided clearance to hold anticoagulation 48 hours pre and post surgery. Plan: Parathyroidectomy with intraoperative nerve and PTH monitoring at first mutually available date. Will plan for outpatient disposition, however, have a low threshold to proceed with a overnight observation. I have examined the patient and the H&P has been reviewed. There are no clinical changes since date of exam. Patient confirms that her complaints of dizziness remain absent. She otherwise feels healthy. She denies any questions, but I take the opportunity anyhow to review procedure and post procedure expectations. Will now proceed to the operating room for planned parathyroidectomy with i ntraoperative PTH and nerve monitoring.
[2023-03-08 08:04] LABS: Bedside Glucose 119 mg/dL (74-106)
[2023-03-08 09:04] LABS: PTHIN 268.8 pg/mL (18.4-80.1)
[2023-03-08 09:38] LABS: PTHIN 196.4 pg/mL (18.4-80.1)
[2023-03-08 09:45] LABS: PTHIN 188.2 pg/mL (18.4-80.1)
[2023-03-08 10:08] LABS: PTHIN 40.7 pg/mL (18.4-80.1)
[2023-03-08 10:10] LABS: PTHIN 49.8 pg/mL (18.4-80.1)
[2023-03-08 10:12] LABS: PTHIN 22.4 pg/mL (18.4-80.1)
[2023-03-08] MEDS: Bupivacaine 0.25% 30 ML Vial (10:17)
--- NOTE | 2023-03-08 10:20 | DCINST_ITS ---
Discharge Instructions Diet Discharge Diet: No restrictions (However recommend a liquid to soft diet initially postoperatively) Activity Discharge Activity: May Not Drive (While it remains difficult to check blind spots quickly) May shower in (days): 2 Ice area for (Minutes): 20 Lifting Restrictions: No lifting greater than 15 pounds for 2 weeks after surgery Dressing / Incision Call your doctor if your incision/area has: Continuous Slow Oozing, Sudden Increased Bleeding, Increased Pain/ Swelling, Increased Redness and Swelling at the incision site Call your doctor if you observe: Numbness or Tingling Remove Dressing in: 2 days (Please leave Steri-Strips intact until they fall off spontaneously or are taken off at your follow-up visit) Cleanse incision/area with: Soap & Water Follow Up Care Please Follow Up With: Azar Hammonds MD When: 7 days postop Test Results: Test results from this visit will be discussed in further detail at your follow- up appointment, if applicable. Discharge Plan Admission Primary Reason for Your Visit: Parathyroidectomy Attending Provider: Azar Hammonds Primary Care Provider: Bria Spencer Instructions Additional Instructions / Restrictions: Please resume Xarelto in 48 hours postop Discharge Orders/Prescriptions Prescriptions: No Action cholecalciferol (vitamin D3) 1,000 unit tablet 2,000 unit PO QDAY omeprazole 20 mg capsule,delayed release(DR/EC) 20 mg PO DAILY Januvia 25 mg tablet 25 mg PO DAILY citalopram 20 mg Tablet 20 mg PO DAILY flecainide 150 mg tablet 150 mg PO Q12H Qty: 180 3RF Xarelto 20 mg tablet 20 mg PO QHS Qty: 90 3RF Hold Instructions: pacemaker procedure Patient Comments: HOLD 2 DAYS PRE-OP AND 2 DAYS POST-OP PER G Rx Instructions: must administer with evening meal metoprolol tartrate 100 mg tablet 100 mg PO BID Qty: 180 3RF furosemide 40 mg tablet See Rx Instructions .ROUTE .COMPLEX Qty: 90 3RF Dose Instruction: TAKE 1 TABLET BY MOUTH EVERY DAY NEEDED FOR SHORTNESS OF BREATH Rx Instructions: TAKE 1 TABLET BY MOUTH EVERY DAY NEEDED FOR SHORTNESS OF BREATH calcitriol 0.25 mcg capsule 0.25 mcg PO DAILY Qty: 30 0RF calcium carbonate-vitamin D3 500 mg-5 mcg (200 unit) tablet 1 tab PO TID Qty: 90 0RF Referrals / Follow Up: Bria Spencer MD [Primary Care Provider] - Azar Hammonds MD [Med Staff - Active Staff] - Disposition Disposition (needs filled in before D/C Order can be placed): Home, Self Care
--- NOTE | 2023-03-08 10:33 | PCM.OPRPT ---
Report of Operation Date of Procedure: 03/08/23 Pre-Operative Diagnosis: Primary hyperparathyroidism with preoperative imaging localizing to the left Post-Operative Diagnosis: Primary hypothyroidism with left inferior hyperplastic gland Surgery/Procedure Performed:: Parathyroidectomies (x 2) with intraoperative nerve and PTH monitoring Surgeon: Azar Hammonds aircraft engine installer: Kelsi Shultz Type of Anesthesia: General/Supplemental Specimen's removed: 1. Right superior parathyroid (frozen section confirmed) 2. Right inferior parathyroid (frozen section confirmed) Estimated Blood Loss (mL): 10 Description of Procedure: After appropriate identification in the preoperative holding area the patient was brought to the operating room where she was positioned supine on the operating room table. There she was induced with general endotracheal anesthetic. Anesthesia placed a magnet atop patient's pacer. Of note, a preoperative PTH had been obtained and was reported as 270. Patient was then intubated using a Nims tube and glide a scope to ensure coaptation between the vocal cords and the Nims tube electrodes. A resistance check confirmed appropriate function of the tube after the electrodes were properly connected to the monitoring box. Patient was then positioned in cervical extension, but adequately supporting the occiput. She was prepped and draped in the usual sterile fashion and a formal timeout followed to confirm patient and the procedure to be performed. A local block was produced with infiltration of local anesthetic and a 5 cm transverse incision was made. This was deepened with the use of electrocautery through the platysma and subplatysmal flaps were raised superiorly and inferiorly. Ultimately the strap muscles were exposed and were divided along their raphe with electrocautery. I then used blunt dissection and selective electrocautery to free the sternothyroid muscle from the sternohyoid muscle as the strap muscles were from 1 another as I proceeded with dissection laterally towards the patient's left internal jugular vein. Once this structure was sufficiently exposed I obtained a baseline central vein PTH level. This ultimately returned at 268.8. For the interim I returned to the patient's neck and elevated the inferior pole of the left thyroid lobe. I initially thought there was a parathyroid gland adherent to the inferior pole of the thyroid, however after some fine dissection I was able to identify that this was in fact the inferior pole of the thyroid. I then the remaining strap muscle from the lateral aspect of the left thyroid lobe and this facilitated further medialization of the lobe. Deeply I identified a elongated parathyroid that appeared significantly larger than normal proportions and proceeded with circumferential dissection, bluntly. Ultimately this led me to a polar vascular pedicle that terminated superiorly. Skeletonizing this pedicle I then amputated the gland due to its size and passed it off the field for pathologic evaluation. Given the excised specimen's superior termination, I identified the specimen as a superior parathyroid that appeared enlarged, but did exhibit gross evidence of fatty infiltration. Ultimately, pathology confirmed the identity as a parathyroid gland via frozen section. A 10 and 15-minute PTH were obtained from the left internal jugular vein and returned with values of 196.4 and 188.2, respectively. I then conducted an exploration of patient's neck for the left inferior parathyroid. Exploring the area just superior to the presumed location of the thyrothymic ligament and inferior to the middle thyroid vein, I identified a hyperplastic?appearing parathyroid which was carefully dissected from the surrounding tissues. This appeared larger and more cellular than its predecessor. Thus it was dissected back to its vascular pedicle and was amputated free. Upon retrieval of this gland, once again, I obtained blood draws from the left internal jugular vein at 9 minutes, 13 minutes, and 22 minutes post?excision for PTH assay. These values returned, respectively, 49.8, 40.7, and 22.4. With these results I interpreted this as confirmation that our target parathyroid had been removed closure was begun. The surgical cavity with sterile water examined for hemostasis. Finding this intact I performed closure of the neck in layers. The strap muscles were run with a 3-0 Vicryl suture to reapproximate the raphe, but a gap was left in the inferior most portion of the strap muscles. Then the platysmal layer was reapproximated with interrupted 3-0 Vicryl. Additional local anesthetic was instilled. The skin was closed using a running 4-0 Monocryl in a subcuticular fashion. Steri-Strips and Telfa OpSite was applied as a dressing. Patient was then awoken from general anesthetic and taken to PACU for ongoing recovery. Grafts/Implants Used: None Complications None Admit VTE Documentation VTE Mechan Device Prophylaxis: SCD's Procedures Endocrine CF Procedures [id number]: Other Procedure See Report (cpt 40969 Parathyroidectomy)
== END 2023-03-08 15:16 | disposition home or self-care (01) ==
LOC: SDC 05:59 → AC 06:00
PROVIDERS: Anesthesiology; PCP Family Medicine; Referring Provider Surgery; Visit Provider Surgery
PROC: (CPT 60500; principal; 2023-03-08 07:15)
DX: E21.0 Primary hyperparathyroidism (principal); I48.19 Other persistent atrial fibrillation; I10 Essential (primary) hypertension; K21.9 Gastro-esophageal reflux disease without esophagitis; G47.33 Obstructive sleep apnea (adult) (pediatric); Z79.01 Long term (current) use of anticoagulants; Z79.899 Other long term (current) drug therapy; Z95.0 Presence of cardiac pacemaker
CPT/HCPCS: 60500; 00320; 82962; 83970; 85027; 88305; 88331; 93005; A4648; J7120; J2405

== ENCOUNTER → 2023-03-15 | Outpatient (CLI) | payer MEDICARE, SELFPAY ==
--- OUTSIDE RECORDS SUMMARY | 2023-03-15 15:34 | XMS RPT_ITS | CCD ---
Author Name Unknown Address [facility] [address] [place] [address] Organization [facility] Care Team Providers Care Cylinder Honer Name Role Phone Nellie Topete Unavailable Unavailable Nellie Topete Unavailable Unavailable SHARON Baltazar, Abigail Christine Unavailable UnavailMarta Ward Unavailable Unavailable Marta Urrutia Unavailable Unavailable Nellie Topete Unavailable Unavailable Allergies Allergy Classification Reported Allergen(s) Allergy Type Date of Onset Reaction(s) Facility (12 sources) codeine drug allergy 04-18-19 13 N&V [facility] Work Phone: [phone] (6 sources) dronedarone drug allergy 04-18-19 13 Severe GI intolerance [facility] Work Phone: [phone] (6 sources) loratadine drug allergy 04-18-19 13 N&V, diarrhea [facility] Work Phone: [phone] (12 sources) meloxicam; Translations: [MOBIC] allergy to substance 08-05-19 15 N&V [facility] Work Phone: [phone] (6 sources) methylprednisoLONE drug allergy 04-18-19 13 N&V, diarrhea [facility] Work Phone: [phone] (12 sources) Penicillins (Antibiotic) drug allergy 04-18-19 13 N&V [facility] Work Phone: [phone] (6 sources) sulfamethoxazole / trimethoprim drug allergy 04-18-19 13 Hives, nausea [facility] Work Phone: [phone] (6 sources) CILLINS drug allergy 04-18-19 13 [facility] Work Phone: [phone] Medications Completed/Discontinued Medications Medication Drug Class(es) Dates Sig (Normalized) Sig (Original) amiodarone hydrochloride 200 mg oral tablet (12 sources) Antiarrhythmic Start: 07-23-2014 End: 08-05-2014 take 1 tablet by mouth once daily AMIODARONE HCL 200 MG TABS One tablet by mouth daily AMIODARONE HCL [id number] Reynaldo Thapa MD aspirin 81 mg oral tablet (18 sources) Nonsteroidal Anti-inflammatory Drug Start: 04-19-2012 End: 08-05-2014 ASPIRIN 81 MG TABS ASPIRIN [id number] Reynaldo Thapa MD Problems Active Problems Problem [...] Da te Episodic/Chronic Other aftercare (6 sources) penitentiary (current) use of anticoagulants; Translations: [penitentiary (current) use of anticoagulants] Onset: 11-18-2014 11-18-2014 [...] (Body Mass Index) 35.36 kg/m2 [facility] Work Phone: 12-29-2016 10:52-0500 BP Diastolic 78 mm[Hg] [facility] Work Phone: 12-29-2016 10:52-0500 BP Systolic 120 mm[Hg] Marta [facility] Work Phone: 12-29-2016 10:52-0500 Height 162.56 cm Marta Young [facility] Work Phone: 12-29-2016 10:52-0500 Pulse (Heart Rate) 60 /min Marta [facility] Work Phone: 12-29-2016 10:52-0500 Respiratory Rate 20 /min Marta Young [facility] Work Phone: 12-29-2016 10:52-0500 Weight 93.44 kg Marta Yonug [facility] Work Phone: 06-30-2016 10:41-0400 Heart rate 57 /min Nellie Young [facility] Work Phone: 06-30-2016 10:28-0400 BMI (Body Mass Index) 37.24 kg/m2 Nellie [facility] Work Phone: 06-30-2016 10:28-0400 BP Diastolic [...] Detail Performing Clinician Start: 12-29-2016 End: 12-29-2016 [facility] Jazmin Cheng PA-C Work Phone: Start: 12-29-2016 [...] months Nanci Rios Start: 08-05-2014 End: 08-05-2014 SCOWMAN Reynaldo Thapa MD Start: 08-05-2014 End: 08-06-2014 [...] PA-C Work Phone: Start: 04-16-2014 End: 04-16-2014 SCOWMAN Jazmin Cheng PA-C Work Phone: Start: 04-16-2014 [...] PA-C Work Phone: Start: 10-16-2012 End: 10-16-2012 SC[facility]MAN Jazmin Cheng PA-C Work Phone: Start: 10-16-2012 End: 10-16-2012 Follow Up Appt 6 months Jazmin carlson PA-C Work Phone: Start: 10-16-2012 End: 11-19-2012 Lipid 1996 panel - Serum or Plasma Jazmin Cheng PA-C Work Phone: Start: 10-16-2012 End: 11-17-2012 *Hepatic Function Panel Jazmin carlson PA-C Work Phone: Start: 10-16-2012 End: 10-16-2012 SCOWMAN Jazmin Cheng PA-C Work Phone: Start: 10-16-2012 [...] Group Work Phone: Start: 12-29-2016 End: 12-29-2016 SC[facility]MAN [facility] Work Phone: Start: 12-29-2016 End: 12-29-2016 Follow Up Appt 6 months Follow Up Appt 6 months [facility] Work Phone: Start: 12-29-2016 End: 12-29-2016 Appointment Appointment [facility] Work Phone: Start: 12-29-2016 End: 12-29-2016 Appointment Appointment [facility] Work Phone: Start: 06-30-2016 End: 12-19-2016 Ecg routine ecg w/least 12 lds w/i&r EKG (In office) [facility] Work Phone: Start: 06-30-2016 End: 12-19-2016 Follow Up Appt 6 months Follow Up Appt 6 months [facility] Work Phone: Start: 06-30-2016 End: 12-19-2016 MMNanci REYNOLDS [facility] Work Phone: Start: 06-30-2016 End: 06-30-2016 Appointment Appointment [facility] Work Phone: Start: 06-30-2016 End: 06-30-2016 Electrocardiogram, complete EKG (In office) [facility] Work Phone: Start: 06-30-2016 End: 06-30-2016 Follow Up Appt 6 months Follow Up Appt 6 months [facility] Work Phone: Start: 06-30-2016 End: 06-30-2016 MMM MMM [facility] Work Phone: Start: 12-28-2015 End: 12-28-2015 Follow Up Appt 6 months Follow Up Appt 6 months [facility] Work Phone: Start: 12-28-2015 End: 12-28-2015 MMM MMM [facility] Work Phone: Start: 12-28-2015 End: 12-28-2015 Follow Up Appt 6 months Follow Up Appt 6 months [facility] Work Phone: Start: 12-28-2015 End: 12-28-2015 MMM MMM [facility] Work Phone: Start: 09-27-2015 End: 09-27-2015 Colonoscopy flx dx w/collj spec when pfrmd Colonoscopy [facility] Work Phone: Start: 09-27-2015 End: 09-27-2015 Esophagogastroduodenoscopy transoral diagnostic Upper gastrointestinal endoscopy [facility] Work Phone: Start: 09-27-2015 End: 09-27-2015 Diagnostic colonoscopy Colonoscopy [facility] Work Phone: Start: 09-27-2015 End: 09-27-2015 Uppr gi endoscopy, diagnosis Upper gastrointestinal endoscopy [facility] Work Phone: Start: 09-20-2015 End: 09-24-2015 Follow Up after Imaging/labs Follow Up after Imaging/labs [facility] Phone: Start: 09-20-2015 End: 09-24-2015 Primary Care Physician Primary Care Physician [facility] Work Phone: Start: 09-20-2015 End: 09-24-2015 Radex esophagus X-Ray, Esophagus & Pharynx [facility] Work Phone: Start: 09-20-2015 End: 09-24-2015 Contrast x-ray, esophagus X-Ray, Esophagus & Pharynx [facility] Work Phone: Start: 09-20-2015 End: 09-24-2015 Follow Up after Imaging/labs Follow Up after Imaging/labs [facility] Work Phone: Start: 09-20-2015 End: 09-24-2015 Primary Care Physician Primary Care Physician [facility] Work Phone: Start: 06-18-2015 End: 06-18-2015 [facility] Work Phone: Start: 06-18-2015 End: 06-18-2015 Follow Up Appt 6 months Follow Up Appt 6 months [facility] Work Phone: Start: 06-18-2015 End: 06-18-2015 [facility] Work Phone: Start: 06-18-2015 End: 06-18-2015 Follow Up Appt 6 months Follow Up Appt 6 months [facility] Work Phone: Start: 11-19-2014 End: 11-19-2014 Ecg routine ecg w/least 12 lds w/i&r EKG (In office) [facility] Work Phone: Start: 11-19-2014 End: 11-19-2014 Follow Up Appt 6 months Follow Up Appt 6 months [facility] Work Phone: Start: 11-19-2014 End: 11-19-2014 MMM MMM [facility] Work Phone: Start: 11-19-2014 End: 11-19-2014 Electrocardiogram, complete EKG (In office) [facility] Work Phone: Start: 11-19-2014 End: 11-19-2014 Follow Up Appt 6 months Follow Up Appt 6 months [facility] Work Phone: Start: 11-19-2014 End: 11-19-2014 MMM MMM [facility] Work Phone: Start: 08-05-2014 End: 08-05-2014 SCOWMAN SCOWMAN [facility] Work Phone: Start: 08-05-2014 End: 08-05-2014 Ecg routine ecg w/least 12 lds w/i&r EKG (In office) [facility] Work Phone: Start: 08-05-2014 End: 08-05-2014 Follow Up Appt 3 months Follow Up Appt 3 months [facility] Work Phone: Start: 08-05-2014 End: 08-05-2014 SCOWMAN SCOWMAN [facility] Work Phone: Start: 08-05-2014 End: 08-05-2014 Electrocardiogram, complete EKG (In office) [facility] Work Phone: Start: 08-05-2014 End: 08-05-2014 Follow Up Appt 3 months Follow Up Appt 3 months [facility] Work Phone: Start: 04-16-2014 End: 04-16-2014 SCOWMAN SCOWMAN [facility] Work Phone: Start: 04-16-2014 End: 04-16-2014 Ecg routine ecg w/least 12 lds w/i&r EKG (In office) [facility] Work Phone: Start: 04-16-2014 End: 04-16-2014 Follow Up Appt 1 year Follow Up Appt 1 year [facility] Work Phone: Start: 04-16-2014 End: 04-16-2014 SCOWMAN SCOWMAN [facility] Work Phone: Start: 04-16-2014 End: 04-16-2014 Electrocardiogram, complete EKG (In office) [facility] Work Phone: Start: 04-16-2014 End: 04-16-2014 Follow Up Appt 1 year Follow Up Appt 1 year [facility] Work Phone: Start: 10-20-2013 End: 04-27-2015 *Hepatic Function Panel *Hepatic Function Panel [facility] Work Phone: Start: 10-20-2013 End: 04-27-2015 Lipid panel [AGGREGATE] *Lipid Profile CC PCP [facility] Work Phone: Start: 10-20-2013 End: 04-27-2015 *Hepatic Function Panel *Hepatic Function Panel [facility] Work Phone: Start: 10-20-2013 End: 04-27-2015 Lipid panel [AGGREGATE] *Lipid Profile CC PCP [facility] Work Phone: Start: 04-17-2013 End: 04-17-2013 Follow Up Appt 1 year Follow Up Appt 1 year [facility] Work Phone: Start: 04-17-2013 End: [...] Group Work Phone: Start: 10-16-2012 End: 10-16-2012 SCOWMAN SCOWMAN [facility] Work Phone: Start: 10-16-2012 End: 10-16-2012 Follow Up Appt 6 months Follow Up Appt 6 months [facility] Work Phone: Start: 10-16-2012 End: 11-19-2012 Lipid panel [AGGREGATE] *Lipid Profile CC PCP [facility] Work Phone: Start: 10-16-2012 End: 11-11-2012 *Hepatic Function Panel *Hepatic Function Panel [facility] Work Phone: Start: 10-16-2012 End: 10-16-2012 SCOWMAN SCOWMAN [facility] Work Phone: Start: 10-16-2012 End: 10-16-2012 Follow Up Appt 6 months Follow Up Appt 6 months [facility] Work Phone: Start: 10-16-2012 End: 11-19-2012 Lipid panel [AGGREGATE] *Lipid Profile CC PCP [facility] Work Phone: Start: 04-19-2012 End: 04-19-2012 Ecg routine ecg w/least 12 lds w/i&r EKG (In office) [facility] Work Phone: Start: 04-19-2012 End: 04-19-2012 Follow Up Appt 6 months Follow Up Appt 6 months [facility] Work Phone: Start: 04-19-2012 End: 04-19-2012 MMM MMM [facility] Work Phone: Start: 04-19-2012 End: 04-19-2012 Electrocardiogram, complete EKG (In office) [facility] Work Phone: Start: 04-19-2012 End: 04-19-2012 Follow Up Appt 6 months Follow Up Appt 6 months [facility] Work Phone: Start: 04-19-2012 End: 04-19-2012 MMM MMM [facility] Work Phone: Patient Education DYSPHAGIA [facility] Work Phone: Progress note 12-21-2020 Note Date & Type Note Facility 12-21-2020 Note HNO ID: [id number] Author: Mike Gtz MD Service: ? Author Type: Physician Type: Progress Notes Filed: 12/21/2020 6:57 PM Note Text: PRIMARY CARE PHYSICIAN: Rui Rea [address] [place] [address] REFERRING PHYSICIAN: Jazmin Cheng, PAC ([facility]) Reynaldo Thapa MD [facility] [address] [facility] [id number] Patient Care Team: Rui Rea MD as PCP - General (Family Practice) Reynaldo Thapa as Specialty Employee Benefits Manager (Cardiology) CHIEF COMPLAINT: Evaluation of arrhythmia HISTORY [...] an antiarrhythmic drug until she came to [place] about 12 years ago. The episodes of [...] converted to sinus rhythm. She wore a panel monitor for about 30 days in October [...] atrial fibrillation - At risk for stroke [id number] = 3 (HTN, age, female gender) - [...] 40 mg ta (more content not included)... [facility] Progress note 11-16-2020 Note Date & Type Note Facility 11-16-2020 Note HNO ID: [id number] Author: Johana Knight APRN.INNER TUBE INSERTER Service: ? Author Type: Nurse Practitioner Type: [...] - Discussed expected course of illness Johana Kngiht, ANAM.JONAS [facility] Summary Purpose Family History No Family History Records FoundNo Family History Records Found Advance Directives No Advanced Directives Records FoundNo Advanced Directives Records Found Additional Source Comments INFORMATION SOURCE (unrecogn ized section and content) DATE CREATED AUTHOR AUTHOR'S LOCO ATARSENIO 03/25/2021 [facility] FOR RECORDS PERTAINING TO PATIENTS WHO ARE [...] BE BASED ON THE PRIMARY CLINICAL RECORDS. [employer] provides no warranty or guarantee of the accuracy or completeness of information in this document.
[2023-03-15 16:13] LABS: Calcium,Total 9.5 mg/dL (8.5-10.1)
[2023-03-16 07:41] LABS: PTHIN 66.9 pg/mL (18.4-80.1)
== END | disposition home or self-care (01) ==
LOC: LAB 15:11
PROVIDERS: PCP Family Medicine; Referring Provider Surgery; Visit Provider Surgery
DX: E89.2 Postprocedural hypoparathyroidism (principal)
CPT/HCPCS: 36415; 82310; 83970

== ENCOUNTER 2023-04-04 16:35 | Emergency (ER) | payer MEDICARE, SELFPAY ==
[2023-04-04 16:38] VITALS: BP 114/87; PULSE 96; RESP 16; TEMP 35.6; O2SAT 99
[2023-04-04 16:41] VITALS: BP 114/87; PULSE 96; RESP 16; TEMP 35.6; O2SAT 99
--- NOTE | 2023-04-04 16:51 | EDS_ITS ---
HPI History of Present Illness Chief Complaint: Nausea/Vomiting [facility] Medical History (Updated 04/04/23 @ 20:[address] Ryan Townsend, DO) Ambulates with cane Anxiety Arthritis Atrial fibrillation Atrophic vaginitis Back problem Cardiology follow-up encounter Cataracts, bilateral CPAP (continuous positive airway pressure) dependence Cystocele with rectocele Depression Dysphagia Essential (primary) hypertension Family history of cardiovascular disease Family history of diabetes mellitus Fecal incontinence History of atrial fibrillation History of detached retina repair History of diverticulitis History of echocardiogram History of hiatal hernia History of stress test HLD (hyperlipidemia) Hypokalemia Lichen sclerosus Non-smoker IRON (obstructive sleep apnea) Pacemaker Right renal stone Sleep apnea Symptomatic bradycardia Wears dentures Wears glasses Home Medications cholecalciferol (vitamin D3) 25 mcg (1,000 unit) tablet 2,000 unit PO QDAY supplement 07/06/17 [History Last Taken 02/09/21] citalopram 20 mg tablet 20 mg PO DAILY 02/09/21 [History Last Taken 02/09/21] flecainide 150 mg tablet 150 mg PO Q12H #180 tabs 02/23/22 [Rx Last Taken 03/08/23] rivaroxaban 20 mg tablet (Xarelto) 20 mg PO QHS #90 tabs 08/01/22 [Rx Last Taken 03/06/23] metoprolol tartrate 100 mg tablet 100 mg PO BID #180 tabs 09/18/22 [Rx Last Taken 03/08/23] omeprazole 20 mg capsule,delayed release 20 mg PO DAILY 12/20/22 [History Last Taken Unknown] furosemide 40 mg tablet See Rx Instructions .Route .COMPLEX #90 tabs 02/26/23 [Rx Last Taken Unknown] sitagliptin phosphate 25 mg tablet (Januvia) 25 mg PO DAILY 02/27/23 [History Last Taken Unknown] calcitriol 0.25 mcg capsule 0.25 mcg PO DAILY #30 caps 03/08/23 [Rx Last Taken Unknown] calcium carbonate 500 mg-vitamin D3 5 mcg (200 unit) tablet 1 tab PO TID #90 tabs 03/08/23 [Rx Last Taken Unknown] amoxicillin 875 mg-potassium clavulanate 125 mg tablet 1 tab PO BID 7 days #14 tabs 04/04/23 [Rx Last Taken Unknown] ondansetron 4 mg disintegrating tablet 4 mg PO Q8H PRN nausea and vomiting #20 tabs 04/04/23 [Rx Last Taken Unknown] Allergy/AdvReac Type Severity Reaction Status Date / Time dapagliflozin [From Farxiga] Allergy Severe Nausea/Vom/ Verified 04/04/23 16:38 Diarrhea dronedarone [From Multaq] Allergy Severe ANAPHYLAXIS Verified 04/04/23 16:38 [facility] [place] codeine Allergy Intermediate PT UNSURE Verified 04/04/23 16:38 OF REACTION meloxicam [From Mobic] Allergy Intermediate PT UNSURE Verified 04/04/23 16:38 OF REACTION nitrofurantoin Allergy Intermediate PT UNSURE Verified 04/04/23 16:38 OF REACTION Penicillins Allergy Intermediate PT UNSURE Verified 04/04/23 16:38 OF REACTION sulfamethoxazole Allergy Intermediate PT UNSURE Verified 04/04/23 16:38 [From Bactrim] OF REACTION trimethoprim [From Bactrim] Allergy Intermediate PT UNSURE Verified 04/04/23 16:38 OF REACTION metformin AdvReac PT UNSURE Verified 04/04/23 16:38 OF REACTION Family History Father Cancer Prostate cancer Mother Myocardial infarction Arthritis Sister Breast cancer Brother Diabetes CHF (congestive heart failure) Myocardial infarction Son Diabetes Other Family history of cardiovascular disease Family history of diabetes mellitus Surgical History History of cardioversion (07/21/19) History of cholecystectomy (1977) History of cystoscopy History of left heart catheterization (07/29/08) History of permanent cardiac pacemaker placement (01/17/21) History of tubal ligation (1981) Social History Smoking Status: Never smoker alcohol intake: never substance use type: does not use caffeine: No what type of physical activity do you participate in: walking frequency: 5-6 times per week seatbelt use: always do you feel safe at home: Yes additional social history: - retired EXAM Physical Exam Const Vital Signs: 04/04/23 16:38 04/04/23 16:41 04/04/23 18:56 Temperature 96.0 F L 96.0 F L Temperature Source Temporal Temporal Pulse Rate 96 96 84 Respiratory Rate 16 16 18 Blood Pressure 114/87 H 114/87 H 122/77 H Blood Pressure Mean 96 96 92 Pulse Ox 99 99 97 Oxygen Delivery Method Room Air Room Air [facility] Narrative Medical decision making narrative: HISTORY OF PRESENT ILLNESS: 78 old female presents with nausea vomiting. Notes 3 days of nausea and vomiting. She notes episode of diarrhea. Notes diffuse weakness. States when she swallows it feels like there is a marble in her throat. She endorses decreased p.o. intake. She further states she had history of her gallbladder out, tubes tied. Denies any abdominal surgeries. Denies any urinary complaint such as urgency frequency or dysuria. Denies any chest pain or shortness of breath. Notes she was sweaty and vomiting patient was when she tries to drink she has a gurgly sensation. Denies any food impaction or inability to swallow. Denies palpitations REVIEW OF SYSTEMS: Pertinent positives: Nausea, vomiting, difficulty swallowing, epigastric pain Pertinent negatives: Chest pain, shortness of breath, palpitations, focal weakness, PHYSICAL EXAM: Nursing triage notes reviewed, Vital signs reviewed Constitutional: please see mdm HENT: MMM Eyes: Pupils equal round and reactive to light, Extraocular muscles intact Neck: No stridor, no JVD, full neck ROM Lungs: Clear to auscultation, No wheezing or rales. No increased work of breathing, no conversational dyspnea, no accessory muscle use, no nasal flaring. No respiratory distress noted Heart: Regular rate and rhythm, No murmurs, No rubs and No gallops, 2+ distal pulses (radial, femoral, posterior tibial) in all extremities Abdomen: Soft, there is no tenderness, rigidity, rebound or guarding, no obvious peritoneal signs, no palpable pulsatile abdominal masses, no auscultated abdominal bruit : No CVAT Extremities: No edema Neuro: No focal neurological deficits, cranial nerves II through XII intact, 5/5 strength in all extremities. Intact sensation to light touch in all extremities, 2+ reflexes bilateral patella tendons. Normal gait. No ataxia. Skin: No rash or lesions noted MEDICAL DECISION MAKING: Chief Complaint: Nausea/vomiting External records reviewed: Imaging reviewed: CT scan from February 2022 shows a 3 mm nonobstructing calculus midpole of the right kidney otherwise no significant findings Factors affecting care: Hypertension, hyperlipidemia, IRON, permanent pacemaker, A-fib Social determinants of health: n elderly History obtained from others: none Consults: none [facility] Narrative: Patient was initially hemodynamically stable, afebrile and nontoxic-appearing. Exam with a nonperitonitic abdomen. I considered the following differential diagnosis: AAA, small bowel obstruction, abdominal perforation, appendicitis, pancreatitis, hepatobiliary pathology (acute cholecystitis), mesenteric ischemia, pathology (ie nephrolithiasis, pyelonephritis). Atypical presentation of ACS, pneumonia, esophageal perforation. Although the patient's abdominal exam was not consistent with acute surgical abdomen at her age history abdominal surgeries made her high risk. I obtained a broad lab and imaging workup to further elucidate the etiology patient complaints. Treat the patient symptomatically with IV fluids, nausea medicine and pain medicine in the form of morphine. ALL IMAGES (IF OBTAINED) HAVE BEEN PERSONALLY REVIEWED AND INTERPRETED BY MYSELF. EKG with ventricular paced rhythm, right axis deviation, prolonged QT, similar morphology to EKG on March 08, 2023 no obvious STEMI or Sgarbossa criteria CBC with no leukocytosis, no anemia or thrombocytopenia BMP without significant electrolyte abnormality, no evidence of metabolic acidosis, baseline CKD, no evidence of endorgan hypoperfusion with a nonelevated anion gap Lactate is wnl indicating no end-organ hypoperfusion and/or hypoxia. LFTs show no evidence of hepatobiliary pathology. High-sensitivity troponin is negative, no evidence of myocardial ischemia Lipase is wnl indicating no pancreatic inflammation. Urinalysis shows evidence of inflammation however patient no urinary symptoms to suggest UTI is likely asymptomatic bacteriuria will not send for culture. CT scan abdomen pelvis shows evidence of colitis. Will give Augmentin. Patient had reported penicillin allergy however she tolerate Augmentin well. Will give her 7 days of Augmentin will also give Zofran and close PCP follow-up. The patient and/or family, caregivers express understanding. The patient and/or family, caregivers agrees with the plan. Shared decision making: I will have a discussion with the patient and or visitors regarding risk/benefits of further testing or admission. They will be made aware of of the risk/benefits inherent in this decision they will be given the opportunity to voice understanding. Total critical care time today provided was at least 0 minutes. This excludes separately billable procedures. Critical care time (if documented) is secondary to the patient having high probability of clinically significant/life threatening deterioration in the patient's condition which required my urgent intervention. Impression: 1. Abdominal pain 2. Nausea vomiting 3. Colitis 4. CKD Dispo: Discharge home This note was generated with [employer] dictation software. It may contain incorrect words, spelling, and punctuation that were not noted in review of the chart prior to signing. Lab Data Labs: Laboratory Results - last 24 hr 04/04/23 04/04/23 04/04/23 16:45 17:05 18:55 WBC 9.4 RBC 5.16 Hgb 16.3 H Hct 48.3 H MCV 93.6 MCH 31.6 MCHC 33.7 RDW Std Deviation 45.3 H RDW Coeff of Inderjit 13.2 Plt Count 188 MPV 10.7 Immature Gran % (Auto) 0.600 Neut % (Auto) 80.1 H Lymph % (Auto) 11.6 L Mora % (Auto) 7.1 Eos % (Auto) 0.3 Baso % (Auto) 0.3 Absolute Neuts (auto) 7.5 Absolute Lymphs (auto) 1.09 Nucleated RBC % 0 Sodium 137 Potassium 4.2 Chloride 107 Carbon Dioxide 28.0 Anion Gap 2 L BUN 23 H Creatinine 1.58 H Est GFR (MDRD) Af Amer 41 L Est GFR (MDRD) Non-Af 34 L BUN/Creatinine Ratio 14.6 Glucose 163 H Lactic Acid 1.5 Calcium 8.9 Total Bilirubin 1.00 Direct Bilirubin 0.28 AST 34 ALT 62 H Alkaline Phosphatase 113 Troponin I High Sens 16 Total Protein 7.1 Albumin 3.9 Globulin 3.2 Lipase 44 Urine Color Yellow Urine Clarity Sl. Cloudy Urine pH 5.0 Ur Specific [place] 1.020 Urine Protein 100 H Urine Glucose (UA) Normal Urine Ketones Negative Urine Occult Blood 25 H Urine Nitrite Negative Urine Bilirubin Negative Urine Urobilinogen Normal Ur Leukocyte Esterase 500 H Urine RBC 0-5 SEEN Urine WBC 10-25 SEEN Ur Squamous Epith Cells 5-10 SEEN Urine Bacteria 1+ Hyaline Casts 5-10 SEEN Urine Mucus 0 SEEN Radiography Diagnostic Testing: Clinical Impression(s) from Imaging Studies Abdomen/Pelvis CT 04/04/23 16:54 IMPRESSION: Colitis with wall thickening on the right could be infectious or inflammatory. No obstruction. Hepatomegaly. Prior cholecystectomy. No biliary dilatation. Right lower lung atelectasis and small pleural effusion. Electronically Signed: Neftaly Beyer MD at 19:16 EST , Chest X-Ray 04/04/23 16:57 IMPRESSION: 1. Transvenous pacer leads without change. 2. Stable borderline cardiomegaly without congestive failure. 3. Subtle interstitial prominence at the RIGHT lung base and suspicion of blunting of the posterior costophrenic sulcus. Subtle RIGHT lower lobe infiltrate is a consideration. Electronically Signed: Juan Carlos Jansen MD at 17:10 EST , Discharge Plan Triage Chief Complaint: Nausea/Vomiting ED Provider: Ryan Townsend Dx/Rx/DC Orders Clinical Impression: Colitis, Nausea & vomiting Instructions: ED Understanding Colitis Prescriptions: New amoxicillin-pot clavulanate 875-125 mg tablet 1 tab PO BID 7 Days Qty: 14 0RF ondansetron 4 mg tablet,disintegrating 4 mg PO Q8H PRN (Reason: nausea and vomiting) Qty: 20 0RF No Action cholecalciferol (vitamin D3) 1,000 unit tablet 2,000 unit PO QDAY omeprazole 20 mg capsule,delayed release(DR/EC) 20 mg PO DAILY Januvia 25 mg tablet 25 mg PO DAILY citalopram 20 mg Tablet 20 mg PO DAILY flecainide 150 mg tablet 150 mg PO Q12H Qty: 180 3RF Xarelto 20 mg tablet 20 mg PO QHS Qty: 90 3RF Hold Instructions: pacemaker procedure Patient Comments: HOLD 2 DAYS PRE-OP AND 2 DAYS POST-OP PER [facility] Rx Instructions: must administer with evening meal metoprolol tartrate 100 mg tablet 100 mg PO BID Qty: 180 3RF furosemide 40 mg tablet See Rx Instructions .ROUTE .COMPLEX Qty: 90 3RF Dose Instruction: TAKE 1 TABLET BY MOUTH EVERY DAY NEEDED FOR SHORTNESS OF BREATH Rx Instructions: TAKE 1 TABLET BY MOUTH EVERY DAY NEEDED FOR SHORTNESS OF BREATH calcitriol 0.25 mcg capsule 0.25 mcg PO DAILY Qty: 30 0RF calcium carbonate-vitamin D3 500 mg-5 mcg (200 unit) tablet 1 tab PO TID Qty: 90 0RF Primary Care Provider: Bria Spencer Referrals: Bria Spencer MD [Primary Care Provider] - Activity Restrictions/Additional Instructions: Thank you for trusting us with your care today! Please take Tylenol (2 pills, 650 mg), ibuprofen (2 pills, 400 mg) every 6 hours as needed for pain and fever control. Please take antibiotic as prescribed. Please complete entire course. Please take Zofran as needed for nausea vomiting control Please return to the emergency department if your symptoms change or worsen. Please follow with your primary care physician for further outpatient evaluation and management. Disposition Disposition: Home, Self Care
--- NOTE | 2023-04-04 16:53 | EKG12_ITS ---
Test Reason : UPPER GASTRIC PAIN Blood Pressure : / mmHG Vent. Rate : 116 BPM Atrial Rate : 097 BPM P-R Int : 000 ms QRS Dur : 166 ms QT Int : 524 ms P-R-T Axes : 000 264 094 degrees QTc Int : 728 ms Ventricular-paced rhythm with Premature supraventricular complexes and with occasional Premature vent ricular complexes Abnormal ECG Confirmed by Azar Polanco ([id number]), legal editor ARJUN OLIVA ([id number]) on 04/05/2023 7:59:34 AM Referred By: STEVE/ALEXIS Confirmed By:Azar Polanco
--- NOTE | 2023-04-04 16:54 | CT_ITS ---
STUDY: CT ABDOMEN AND PELVIS WITH CONTRAST REASON FOR EXAM: Female, 78 years old. Epigastric abdominal pain, nausea vomiting RADIATION DOSAGE (If Supplied By Facility): CTDIvol = ( 30.71 ) mGy, DLP = ( 1114.37 ) mGycm TECHNIQUE: Transaxial images were obtained from the dome of the diaphragm to the symphysis pubis without oral contrast. IV 100mL Isovue-370 was administered. Sagittal and coronal images were reconstructed. Individualized dose optimization techniques were used for this CT. COMPARISON: March 06, 2022 FINDINGS: There is right lower lung atelectasis. There is small right pleural effusion. There is cardiac enlargement. Pacemaker wires in the heart. There is hepatomegaly with diffuse hepatic enlargement. There are surgical clips in the gallbladder fossa consistent with a prior cholecystectomy. Normal spleen. Normal pancreas. Normal bilateral adrenal glands. Normal right kidney. Normal left kidney. Normal visualized stomach. Normal small intestine. There is wall thickening of the ascending colon and hepatic flexure with adjacent infiltrative change. There are a few diverticula of the sigmoid region. The appendix is visualized and appears normal. There is diffuse atherosclerotic calcification of the abdominal aorta, without a demonstrated aneurysm. Normal inferior vena cava. Normal retroperitoneum. Normal urinary bladder. There is atrophy of the uterus. There is mild free fluid in the abdomen and pelvis Normal abdominal wall. There is degenerative change of the spine. CT/Abdomen/Pelvis W IV Cont ONLY IMPRESSION: Colitis with wall thickening on the right could be infectious or inflammatory. No obstruction. Hepatomegaly. Prior cholecystectomy. No biliary dilatation. Right lower lung atelectasis and small pleural effusion. Electronically Signed: Neftaly Beyer MD at 19:16 EST ,
--- NOTE | 2023-04-04 16:57 | RAD_ITS ---
INDICATION: difficulty swallowing EXAMINATION/TECHNIQUE: X-RAY - XR Chest 1 View COMPARISON: 02/09/2021 FINDINGS: LIFE-SUPPORT AND LINES: 1. Transverse pacer leads without change. HEART AND VESSELS: Cardiac silhouette is upper limit of normal without change. No congestive failure. LUNGS AND PLEURAL SPACES: Subtle interstitial prominence noted at the RIGHT lung base. There appears to be blunting of the posterior costophrenic sulcus. Remaining lung zones are clear. No pulmonary mass is noted. MEDIASTINUM AND HILAR REGIONS: No masses adenopathy noted. No areas of calcification. Visualized upper airway is normal in position. BONY ELEMENTS: No acute bony changes noted. RAD/Chest 1 View (Portable) IMPRESSION: 1. Transvenous pacer leads without change. 2. Stable borderline cardiomegaly without congestive failure. 3. Subtle interstitial prominence at the RIGHT lung base and suspicion of blunting of the posterior costophrenic sulcus. Subtle RIGHT lower lobe infiltrate is a consideration. Electronically Signed: Juan Carlos Jansen MD at 17:10 EST ,
[2023-04-04] MEDS: Metoclopramide 10 MG/2 ML Vial 5 MG IV (17:10)
[2023-04-04] MEDS: 0.9% Normal Saline (1000mL) 1,000 ML 1000 ML IV (17:10)
[2023-04-04 17:23] LABS: Absolute Lymphocyte Count 1.09 X10^3/uL (0.83-4.51); Absolute Neutrophil Count 7.5 X10^3/uL (2.0-7.7); Basophil# 0.03 X10^3/uL; Basophil% 0.3 % (0-1); Eosinophil# 0.03 X10^3/uL; Eosinophils% 0.3 % (0-5); Hematocrit 48.3 % (37-47); Hemoglobin 16.3 g/dL (12.0-15.0); Lymphocyte # 1.09 X10^3/ul (0.83-4.51); Lymphocyte % 11.6 % (19-41); Mean Corp Hgb Conc 33.7 g/dL (32-36); Mean Corpuscular Hgb 31.6 pg (27.0-32.0); Mean Corpuscular Volume 93.6 fL (81-99); Mean Platelet Vol. 10.7 fl (6.2-12.0); Monocyte# 0.67 X10^3/uL; Monocyte% 7.1 % (0-10); NRBC Flagged by Analyzer 0 % (0-5); Neutrophil # 7.51 X10^3/uL (2.7-7.7); Neutrophil % 80.1 % (47-70); Platelet Count 188 K/mm3 (150-450); RBC Distribution Width CV 13.2 % (11.6-14.6); RBC Distribution Width SD 45.3 fl (35.1-43.9); Red Blood Count 5.16 M/mm3 (4.2-5.4); White Blood Count 9.4 K/mm3 (4.4-11.0)
[2023-04-04 17:40] LABS: AST(SGOT) 34 U/L (15-37); Alanine Aminotransfer ALT/SGPT 62 U/L (13-56); Albumin, Serum 3.9 g/dL (3.2-5.0); Alkaline Phosphatase 113 U/L (45-117); Anion Gap 2 (5-15); BUN 23 mg/dL (7-18); BUN/Creat Ratio 14.6 RATIO (10-20); Bilirubin, Direct 0.28 mg/dL (0.00-0.30); Calcium,Total 8.9 mg/dL (8.5-10.1); Chloride 107 mmol/L (98-107); Creatinine, Serum 1.58 mg/dL (0.55-1.02); EST Glomerular Filtration Rate 34 mL/min (>60); Est Glom Filt Rate - Afr Amer 41 mL/min (>60); Globulin 3.2 g/dL (2.2-4.2); Glucose 163 mg/dL (74-106); Lipase 44 U/L (13-75); Potassium 4.2 mmol/L (3.5-5.1); Protein, Total 7.1 g/dL (6.4-8.2); Sodium Level 137 mmol/L (136-145); Troponin-I HS 16 pg/mL (3.0-54.0)
[2023-04-04 17:41] LABS: Lactic Acid 1.5 mmol/L (0.4-1.9)
[2023-04-04 18:56] VITALS: BP 122/77; PULSE 84; RESP 18; O2SAT 97
[2023-04-04 19:01] LABS: Mucous, Urine 0 SEEN /hpf (<or=2+)
[2023-04-04 19:02] LABS: Color, Urine Yellow (Yellow); Glucose, Dipstick Normal (Normal); Ketone-Dipstick Negative (Negative); Leukocyte Esterase-Dipstick 500 /ul (Negative); Nitrite-Dipstick Negative (Negative); Occult Blood-Urine 25 /ul (Negative); Protein-Dipstick 100 mg/dl (Negative); Urine Bilirubin Dipstick Negative (Negative); Urine Clarity Sl. Cloudy (Clear); Urine Urobilinogen Normal (Normal)
[2023-04-04 19:10] LABS: Red Blood Cells-Urine 0-5 SEEN /hpf (0-5); White Blood Cells 10-25 SEEN /hpf (0-5)
[2023-04-04 19:11] LABS: Bacteria 1+ /hpf (None Seen); Squamous Epithelial Cells - UA 5-10 SEEN /hpf (5-10)
[2023-04-04 19:12] LABS: Hyaline Cast 5-10 SEEN /lpf (0-5)
[2023-04-04] MEDS: Amox/Clavulanate 875 MG Tablet PO (20:19)
[2023-04-04 21:29] VITALS: BP 127/93; PULSE 90; RESP 18; TEMP 36.7; O2SAT 97
== END 2023-04-04 21:30 | disposition home or self-care (01) ==
PROVIDERS: Emergency Provider Emergency Medicine; PCP Family Medicine; Visit Provider Emergency Medicine
DX: K52.9 Noninfective gastroenteritis and colitis, unspecified (principal); I48.91 Unspecified atrial fibrillation; I12.9 Hypertensive chronic kidney disease with stage 1 through stage 4 chronic kidney disease, or unspecified chronic kidney disease; N18.9 Chronic kidney disease, unspecified; G47.33 Obstructive sleep apnea (adult) (pediatric); F41.9 Anxiety disorder, unspecified; F32.A Depression, unspecified; Z79.01 Long term (current) use of anticoagulants; Z95.0 Presence of cardiac pacemaker; Z79.899 Other long term (current) drug therapy
CPT/HCPCS: 71045; 74177; 80048; 80076; 81001; 83605; 83690; 84484; 85025; 93005; 96361; 96374; 96375; 99282; J7030; Q9967

== ENCOUNTER 2023-06-12 06:29 | Day surgery (SDC) | payer MEDICARE, SELFPAY ==
--- NOTE | 2023-06-11 | COLBX_PTH ---
PATIENT: SAVANNA MCDONOUGH LOC: EN U#:[id number] AGE/SX: 78/F ROOM: RE06/12/[address]: Dr. Win John MD : 1945 BED: DIS: 06/12/2023 SPEC #: [id number] RECD: 06/12/23 10:56 STATUS: FAITH ANDREWS #: [id number] IVELISSE: 06/11/23 00:[address]: Win John DEPT: SURGICAL PATHOLOGY RECD BY: Russ Harden ENTERED: 06/12/23 10:56 SP TYPE: COLON BX OTHR DR: Dr. Bria Spencer MD Tissues: A - Cecum, NOS B - Sigmoid colon biopsy Procedures: Surgery Specimen Level IV HEADER OPERATION: Colonoscopy, EGD, biopsy, hemostasis clip PRE-OP DIAGNOSIS: Colitis, Dysphagia TISSUE SUBMITTED: A- Cecum biopsy, B- Sigmoid colon biopsy MICROSCOPIC DIAGNOSIS A. Cecum, biopsy: Fragments of colonic mucosa, no pathologic diagnosis. B. Sigmoid colon, biopsy: Fragments of colonic mucosa with focal ulceration, acute and chronic inflammation and granulation tissue reaction, changes consistent with ischemic colitis. See comment. / 06/13/2023 COMMENT Correlation with clinical, endoscopic findings and appropriate follow up are necessary. MICROSCOPIC DESCRIPTION Slides are reviewed. GROSS DESCRIPTION A. Received in fixative is one container labeled with the patient's name and designated Cecum biopsy. The specimen consists of two irregular fragments of light avalos soft tissue that in aggregate measure 0.8 x 0.4 x 0.1 cm. The specimen is totally submitted in one cassette. B. Received in fixative is one container labeled with the patient's name and designated Sigmoid colon biopsy. The specimen consists of multiple irregular fragments of light avalos soft tissue that in aggregate measure 0.6 x 0.6 x 0.1 cm. The specimen is totally submitted in one cassette. [facility] 06/12/2023 TC:5 CPT:83002f9
[2023-06-12 06:53] VITALS: BP 106/69; PULSE 68; RESP 16; TEMP 36.3; O2SAT 100; BMI 33.6
[2023-06-12] MEDS: Lactated Ringers 1,000 ML 15 ML IV (06:59)
--- NOTE | 2023-06-12 07:02 | HP.PCM_ITS ---
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: No Is patient in pain?: Yes (epigastric) Allergies dapagliflozin [From Farxiga] Allergy (Severe, Verified 05/21/23 08:30) Nausea/Vom/Diarrheadronedarone [From Multaq] Allergy (Severe, Verified 05/21/23 08:30) [facility] [place] [facility] (Intermediate, Verified 05/21/23 08:30) PT UNSURE OF REACTIONmeloxicam [From Mobic] Allergy (Intermediate, Verified 05/21/23 08:30) PT UNSURE OF REACTIONnitrofurantoin Allergy (Intermediate, Verified 05/21/23 08:30) PT UNSURE OF REACTIONPenicillins Allergy (Intermediate, Verified 05/21/23 08:30) PT UNSURE OF REACTIONsulfamethoxazole [From Bactrim] Allergy (Intermediate, Verified 05/21/23 08:30) PT UNSURE OF REACTIONtrimethoprim [From Bactrim] Allergy (Intermediate, Verified 05/21/23 08:30) PT UNSURE OF REACTIONmetformin Adverse Reaction (Verified 05/21/23 08:30) PT UNSURE OF REACTION Medications cholecalciferol (vitamin D3) 25 mcg (1,000 unit) tablet 2,000 unit PO QDAY supplement 07/06/17 [History Confirmed 05/21/23] citalopram 20 mg tablet 20 mg PO DAILY 02/09/21 [History Confirmed 05/21/23] flecainide 150 mg tablet 150 mg PO Q12H #180 tabs 02/23/22 [Rx Confirmed 05/21/23] rivaroxaban 20 mg tablet (Xarelto) 20 mg PO QHS #90 tabs 08/01/22 [Rx Confirmed 05/21/23] metoprolol tartrate 100 mg tablet 100 mg PO BID #180 tabs 09/18/22 [Rx Confirmed 05/21/23] omeprazole 20 mg capsule,delayed release 20 mg PO DAILY 12/20/22 [History Confirmed 05/21/23] furosemide 40 mg tablet See Rx Instructions .Route .COMPLEX #90 tabs 02/26/23 [Rx Confirmed 05/21/23] sitagliptin phosphate 25 mg tablet (Januvia) 25 mg PO DAILY 02/27/23 [History Confirmed 05/21/23] calcitriol 0.25 mcg capsule 0.25 mcg PO DAILY #30 caps 03/08/23 [Rx Confirmed 05/21/23] calcium carbonate 500 mg-vitamin D3 5 mcg (200 unit) tablet 1 tab PO TID #90 tabs 03/08/23 [Rx Confirmed 05/21/23] ondansetron 4 mg disintegrating tablet 4 mg PO Q8H PRN nausea and vomiting #20 tabs 04/04/23 [Rx Confirmed 05/21/23] PFSH Medical History (Updated 05/21/23 @ 08:[address] Win John MD) Ambulates with cane Anxiety Arthritis Atrial fibrillation Atrophic vaginitis Back problem Cardiology follow-up encounter Cataracts, bilateral CPAP (continuous positive airway pressure) dependence Cystocele with rectocele Depression Dysphagia Essential (primary) hypertension Family history of cardiovascular disease Family history of diabetes mellitus Fecal incontinence History of atrial fibrillation History of detached retina repair History of diverticulitis History of echocardiogram History of hiatal hernia History of stress test HLD (hyperlipidemia) Hypokalemia Lichen sclerosus Non-smoker IRON (obstructive sleep apnea) Pacemaker Right renal stone Sleep apnea Symptomatic bradycardia Wears dentures Wears glasses Surgical History History of cardioversion (07/21/19) History of cholecystectomy (1977) History of cystoscopy History of left heart catheterization (07/29/08) History of permanent cardiac pacemaker placement (01/17/21) History of tubal ligation (1981) Family History Father Cancer Prostate cancerMother Myocardial infarction ArthritisSister Breast cancerBrother Diabetes CHF (congestive heart failure) Myocardial infarctionSon DiabetesOther Family history of cardiovascular disease Family history of diabetes mellitus Social History Smoking Status: Never smoker alcohol intake: never substance use type: does not use caffeine: No what type of physical activity do you participate in: walking frequency: 5-6 times per week seatbelt use: always do you feel safe at home: Yes additional social history: - retired HPI HPI HPI: Patient is a 78-year-old female here for dysphagia and colitis. The patient was recently in the emergency room for right-sided abdominal pain in March and was found to have right-sided colitis. The patient reports she is not having any blood in her stool but she still does have right-sided abdominal pain a few times a week. She is not having any diarrhea. She also reports she has been having dysphagia. She reports that she feels like liquid gurgles down and slowly passes. She says this occasionally happens with food as well. She does have acid reflux and does not take any medications for it. ROS General General: Yes fatigue; No weight change, appetite, colon cancer, breast cancer or weakness HEENT HEENT: Yes difficulty swallowing; No eye injury, eye surgery, swollen glands or hoarseness Endo Endocrine: Yes diabetes mellitus; No thyroid disease, thyroid cancer, Hair loss, heat intolerance or cold intolerance Skin Skin: No rash or changing moles Musc Musculoskeletal: Yes arthritis; No back problems, rheumatoid arthritis, gout or joint pain Cardio Cardiovascular: Yes pacemaker and atrial fibrillation; No murmur, heart disease, high blood pressure, heart attack, heart stent, palpitations, shortness of breat with exertion or chest pain Psych Psychiatric: No depression, anxiety or hearing voices Resp Respiratory: No shortness of breath, Yes sleep apnea, No cough, No COPD, No asthma, No emphysema and No wheezing Gastro Gastrointestinal: No abdominal pain, No nausea or vomiting, No diarrhea, No constipation, No blood in stool, Yes acid reflux, No hemorrhoids, No ulcers, No gallbladder problem and No black,tarry stools Eric Hematologic: Yes blood thinners, No blood disorders, No bleeding, No anemia and No blood clots Neuro Neurologic: No system reviewed and no additional complaints, except as documented, No as per HPI, No abnormal gait, No abnormal hearing, No abnormal movements, No abnormal speech, No behavioral changes, No burning sensations, No confusion, No convulsions, No disequilibrium, No dizziness, No localized weakness, No frequent falls, No headache(s), No lack of coordination, No loss of vision, No memory loss, Yes numbness, No other visual disturbances, No radicular pain, No restless legs, No sensory deficit, No syncope, Yes tingling, No tremor(s), No weakness and No other Exam Const General: cooperative Orientation: alert and oriented x3 HENMT Head: normal to inspection Neck Neck: normal visual inspection and full ROM Chest Chest palpation & inspection: normal inspection of the chest Resp Effort & Inspection: normal respiratory effort Auscultation: clear to auscultation bilaterally Cardio Rate: regular rate Rhythm: regular rhythm GI Inspection: non-distended Palpation: soft and nontender Skin General: no rashes or lesions noted Neuro General: patient alert and patient oriented x3 Extrem General: full ROM Psych Appearance: grossly normal Mental Status: mental status grossly normal Assessment and Plan Assessment and Plan (1) Colitis: Status: Inactive (2) Dysphagia: Status: Acute Orders: Orders Colonoscopy Today EGD Today Plan The patient had right-sided colitis in the emergency room. I would like to perform a colonoscopy to do biopsies and evaluate the area. Patient is also having dysphagia and I discussed EGD with possible dilation or biopsies. I explained endoscopy in detail to the patient. I explained the risks including but not limited to stroke or heart attack with anesthesia, perforation of the GI tract, bleeding, infection. I explained that any of these could necessitate further emergency surgery. I discussed the increased risk of perforation and bleeding with dilation. I will also have her hold her blood thinners for 3 days. The patient understands and all questions were answered sufficiently. The patient wishes to proceed with procedure. Win John MD Pager: [facility] [address] [place] [address], [address] [place] [address] Office: I have examined the patient and the H&P has been reviewed. There are no clinical changes since date of exam.
[2023-06-12 07:23] LABS: Bedside Glucose 107 mg/dL (74-106)
[2023-06-12 07:56] VITALS: BP 106/67; BP 115/67; PULSE 85; RESP 16; TEMP 36.8; O2SAT 98
[2023-06-12 08:00] VITALS: BP 102/57; BP 106/67; PULSE 81; RESP 16; O2SAT 97
--- NOTE | 2023-06-12 08:01 | OP.CCLET_ITS ---
06/12/2023 Bria Spencer [place] [id number] [place] [address] Re : Upper GI endoscopy procedure for Shirley Shultz Dear Dr. Spencer This procedure was performed on Monday, June 12, 2023. My impressions and recommendations are as follows: Impressions : - Normal esophagus. - Normal stomach. - Normal examined duodenum. - No specimens collected. Recommendations : - Discharge patient to home. - Resume previous diet. - Continue present medications. - Perform ambulatory esophageal manometry at appointment to be scheduled. My findings are described in the full procedure note, which is enclosed. If I can be of further assistance, please feel free to contact me at Doctor phone number(s): , Work: . Sincerely, Win John MD 06/12/2023 8:01:07 AM This report has been signed electronically.
--- NOTE | 2023-06-12 08:01 | OP.EGD_ITS ---
Patient Name: Shirley Shultz Procedure Date: 06/12/2023 7:19 AM Date of : 1945 Age: 78 Procedure: Upper GI endoscopy Indications: Dysphagia Providers: Win John MD Referring MD: Bria Spencer Medicines: Propofol per Anesthesia Patient Profile: This is a 78 year old female. Refer to note in patient chart for documentation of history and physical. Complications: No immediate complications. Estimated blood loss: Minimal. Procedure: Pre-Anesthesia Assessment: - Prior to the procedure, a History and Physical was performed, and patient medications and allergies were reviewed. The patient's tolerance of previous anesthesia was also reviewed. The risks and benefits of the procedure and the sedation options and risks were discussed with the patient. All questions were answered, and informed consent was obtained. Prior Anticoagulants: The patient has taken no anticoagulant or antiplatelet agents. After reviewing the risks and benefits, the patient was deemed in satisfactory condition to undergo the procedure. After obtaining informed consent, the endoscope was passed under direct vision. Throughout the procedure, the patient's blood pressure, pulse, and oxygen saturations were monitored continuously. The Endoscope was introduced through the mouth, and advanced to the fourth part of duodenum. The upper GI endoscopy was accomplished without difficulty. The patient tolerated the procedure well. Scope In: 7:32:56 AM Scope Out: 7:34:43 AM Total Procedure Duration Time 0 hours 1 minute 47 seconds Findings: The esophagus was normal. The stomach was normal. The examined duodenum was normal. Impression: - Normal esophagus. - Normal stomach. - Normal examined duodenum. - No specimens collected. Recommendation: - Discharge patient to home. - Resume previous diet. - Continue present medications. - Perform ambulatory esophageal manometry at appointment to be scheduled. Procedure Code(s): --- Professional --- 61062, Esophagogastroduodenoscopy, flexible, transoral; diagnostic, including collection of specimen(s) by brushing or washing, when performed (separate procedure) Diagnosis Code(s): --- Professional --- R13.10, Dysphagia, unspecified CPT copyright 2021 [employer] [place] [employer]. All rights reserved. The codes documented in this report are preliminary and upon hop sorter review may be revised to meet current compliance requirements. Win John MD 06/12/2023 8:01:07 AM This report has been signed electronically. Number of Addenda: 0 Note Initiated On: 06/12/2023 7:19 AM
[2023-06-12 08:05] VITALS: BP 106/67; BP 109/62; PULSE 81; RESP 16; O2SAT 96
--- NOTE | 2023-06-12 08:08 | OP.COLON_ITS ---
Patient Name: Shirley Shultz Procedure Date: 06/12/2023 7:35 AM Date of : 1945 Age: 78 Procedure: Colonoscopy Indications: Follow-up of acute ischemic colitis Providers: Win John MD Referring MD: Bria Spencer Medicines: Propofol per Anesthesia Patient Profile: This is a 78 year old female. Refer to note in patient chart for documentation of history and physical. Last Colonoscopy: several years ago. Complications: No immediate complications. Estimated blood loss: Minimal. Procedure: Pre-Anesthesia Assessment: - Prior to the procedure, a History and Physical was performed, and patient medications and allergies were reviewed. The patient's tolerance of previous anesthesia was also reviewed. The risks and benefits of the procedure and the sedation options and risks were discussed with the patient. All questions were answered, and informed consent was obtained. Prior Anticoagulants: The patient has taken no anticoagulant or antiplatelet agents. After reviewing the risks and benefits, the patient was deemed in satisfactory condition to undergo the procedure. After I obtained informed consent, the scope was passed under direct vision. Throughout the procedure, the patient's blood pressure, pulse, and oxygen saturations were monitored continuously. The Colonoscope was introduced through the anus and advanced to the cecum, identified by appendiceal orifice and ileocecal valve. The colonoscopy was performed without difficulty. The patient tolerated the procedure well. The quality of the bowel preparation was good. The ileocecal valve, appendiceal orifice, and rectum were photographed. Scope In: 7:36:27 AM Scope Withdrawal Time 0 hours 8 minutes 56 seconds Scope Out: 7:51:32 AM Total Procedure Duration Time 0 hours 15 minutes 5 seconds Findings: Discontinuous areas of nonbleeding ulcerated mucosa with no stigmata of recent bleeding were present in the sigmoid colon. Biopsies were taken with a cold forceps for histology. For location marking, one hemostatic clip was successfully placed. There was no bleeding at the end of the procedure. Biopsies for histology were taken with a cold forceps from the ascending colon for evaluation of microscopic colitis. The exam was otherwise without abnormality on direct and retroflexion views. Impression: - Mucosal ulceration. Biopsied. - The examination was otherwise normal on direct and retroflexion views. - Biopsies were taken with a cold forceps from the ascending colon for evaluation of microscopic colitis. Recommendation: - Discharge patient to home. - Resume previous diet. - Continue present medications. - Resume Xarelto (rivaroxaban) at prior dose tomorrow. - Repeat colonoscopy for surveillance based on pathology results. Procedure Code(s): --- Professional --- 18492, Colonoscopy, flexible; with biopsy, single or multiple 15567, Unlisted procedure, colon Diagnosis Code(s): --- Professional --- K63.3, Ulcer of intestine K55.039, Acute (reversible) ischemia of large intestine, extent unspecified CPT copyright 2021 [employer]. All rights reserved. The codes documented in this report are preliminary and upon video games mechanic review may be revised to meet current compliance requirements. Win John MD 06/12/2023 8:08:07 AM This report has been signed electronically. Number of Addenda: 0 Note Initiated On: 06/12/2023 7:35 AM
[2023-06-12 08:09] VITALS: BP 106/67; BP 110/66; PULSE 80; RESP 16; TEMP 36.7; O2SAT 97
--- NOTE | 2023-06-12 08:09 | OP.CCLET_ITS ---
06/12/2023 Bria Spencer [place] [id number] [address] Re : Colonoscopy procedure for Shirley Shultz Dear Dr. Spencer This procedure was performed on Monday, June 12, 2023. My impressions and recommendations are as follows: Impressions : - Mucosal ulceration. Biopsied. - The examination was otherwise normal on direct and retroflexion views. - Biopsies were taken with a cold forceps from the ascending colon for evaluation of microscopic colitis. Recommendations : - Discharge patient to home. - Resume previous diet. - Continue present medications. - Resume Xarelto (rivaroxaban) at prior dose tomorrow. - Repeat colonoscopy for surveillance based on pathology results. My findings are described in the full procedure note, which is enclosed. If I can be of further assistance, please feel free to contact me at Doctor phone number(s): , Work: . Sincerely, Win John MD 06/12/2023 8:08:07 AM This report has been signed electronically.
[2023-06-12 08:31] VITALS: BP 106/67
== END 2023-06-12 08:45 | disposition home or self-care (01) ==
LOC: EN 06:29 → AC 06:29
PROVIDERS: PCP Family Medicine; Referring Provider Family Medicine; Visit Provider Surgery
PROC: 0DJD8ZZ Inspection of Lower Intestinal Tract, Via Natural or Artificial Opening Endoscopic (ICD-10-PCS; CPT 45378; principal; 2023-06-12 07:25)
DX: K52.839 Microscopic colitis, unspecified (principal); I48.19 Other persistent atrial fibrillation; E11.9 Type 2 diabetes mellitus without complications; I10 Essential (primary) hypertension; E78.5 Hyperlipidemia, unspecified; K21.9 Gastro-esophageal reflux disease without esophagitis; R13.10 Dysphagia, unspecified; F41.9 Anxiety disorder, unspecified; F32.A Depression, unspecified; K63.3 Ulcer of intestine; G47.33 Obstructive sleep apnea (adult) (pediatric); Z79.01 Long term (current) use of anticoagulants; Z79.899 Other long term (current) drug therapy; Z95.0 Presence of cardiac pacemaker
CPT/HCPCS: 43235; 45380; 82962; 88305; J7120; J2405

== ENCOUNTER 2023-06-22 08:06 | Day surgery (SDC) | payer MEDICARE, SELFPAY ==
[2023-06-22 08:18] VITALS: PULSE 62; RESP 16; TEMP 36.1; O2SAT 100
[2023-06-22 08:20] VITALS: BP 122/71
[2023-06-22] MEDS: Lidocaine Jelly 2% 20 ML Syringe (URO-JET) 1 APPLIC (08:28)
== END 2023-06-22 08:59 | disposition home or self-care (01) ==
PROVIDERS: PCP Family Medicine; Referring Provider Family Medicine; Visit Provider Surgery
PROC: F00ZJWZ Instrumental Swallowing and Oral Function Assessment using Swallowing Equipment (ICD-10-PCS; CPT 43235; principal; 2023-06-22 07:55)
DX: R13.10 Dysphagia, unspecified (principal)
CPT/HCPCS: 91010

== ENCOUNTER 2023-08-21 06:27 | Emergency (ER) | payer MEDICARE, SELFPAY ==
[2023-08-21] VITALS (8 sets, daily range): BP systolic 90–122; BP diastolic 74–97; PULSE 81–121; RESP 14–18; TEMP 36.1–36.6; O2SAT 90–99; BMI 38.0
--- NOTE | 2023-08-21 06:44 | EKG12_ITS ---
Test Reason : cp Blood Pressure : / mmHG Vent. Rate : 122 BPM Atrial Rate : 122 BPM P-R Int : 000 ms QRS Dur : 276 ms QT Int : 440 ms P-R-T Axes : 000 260 098 degrees QTc Int : 627 ms Ventricular-paced rhythm Abnormal ECG Wide completx QRS suggest metabolic issue Confirmed by Azar Polanco ([id number]), visual effects editor ARJUN OLIVA ([id number]) on 08/24/2023 9:15:15 AM Referred By: Julius Confirmed By:Azar Polanco
--- NOTE | 2023-08-21 06:44 | CT_ITS ---
STUDY: CT ABDOMEN AND PELVIS WITH CONTRAST REASON FOR EXAM: Female, 78 years old. Abdominal pain RADIATION DOSAGE (If Supplied By Facility): CTDIvol = ( 26.04 ) mGy, DLP = ( 1083.57 ) mGycm TECHNIQUE: IV 100mL Isovue-370 was administered. Transaxial images were obtained from the dome of the diaphragm to the symphysis pubis. Multiplanar coronal and sagittal images were reformatted. The protocol utilizes one or more of the following dose reduction techniques: automated exposure control, adjustment of mA and/or kV according to patient size,and/or use of iterative reconstruction technique. COMPARISON: No relevant prior comparison study available FINDINGS: The visualized lung bases demonstrate mild atelectasis or scarring in the right lower lobe. Borderline heart size. No evidence of pericardial effusion. Hepatomegaly and mild hepatic steatosis.. There are surgical clips in the gallbladder fossa consistent with a prior cholecystectomy. Normal spleen. Normal pancreas. Normal bilateral adrenal glands. The stomach is not well distended. Normal in caliber small bowel loops. Diverticulosis without evidence of acute diverticulitis. The appendix is visualized and appears normal. Atherosclerotic calcifications of the abdominal aorta without evidence of aneurysm. No retroperitoneal adenopathy. Normal right kidney. Normal left kidney. The bladder is not well distended. No pelvic mass. Free fluid in the pelvis. Normal abdominal wall. There are degenerative changes of the visualized lumbar spine. CT/Abdomen/Pelvis W IV Cont ONLY IMPRESSION: 1. Hepatomegaly and mild hepatic steatosis. 2. Nonspecific mild perinephric stranding without evidence of hydronephrosis. 3. Diverticulosis. No evidence of acute diverticulitis. 4. Free fluid in the pelvis. Electronically Signed: Elliot Alvarenga MD at 8:42 EDT ,
--- NOTE | 2023-08-21 06:44 | RAD_ITS ---
INDICATION: chest pain EXAMINATION/TECHNIQUE: X-RAY - XR Chest 1 View COMPARISON: No relevant prior comparison study available FINDINGS: LINES/DEVICES: Left-sided dual-chamber cardiac pacer device in place. LUNGS: No consolidation, edema or effusion. No pneumothorax. MEDIASTINUM AND CARDIOVASCULAR STRUCTURES: Mild enlargement of the cardiac silhouette. BONES AND SOFT TISSUES: Unremarkable. RAD/Chest 1 View (Portable) IMPRESSION: 1. Mild enlargement of cardiac silhouette. 2. No acute cardiopulmonary disease. Electronically Signed: Elliot Alvarenga MD at 8:43 EDT ,
[2023-08-21 06:57] LABS: Absolute Lymphocyte Count 1.62 X10^3/uL (0.83-4.51); Absolute Neutrophil Count 5.2 X10^3/uL (2.0-7.7); Basophil# 0.03 X10^3/uL; Basophil% 0.4 % (0-1); Eosinophil# 0.06 X10^3/uL; Eosinophils% 0.8 % (0-5); Lymphocyte # 1.62 X10^3/ul (0.83-4.51); Lymphocyte % 21.8 % (19-41); Mean Corp Hgb Conc 31.9 g/dL (32-36); Mean Corpuscular Hgb 29.9 pg (27.0-32.0); Mean Corpuscular Volume 93.6 fL (81-99); Mean Platelet Vol. 10.4 fl (6.2-12.0); Monocyte# 0.42 X10^3/uL; Monocyte% 5.6 % (0-10); NRBC Flagged by Analyzer 0 % (0-5); Neutrophil # 5.23 X10^3/uL (2.7-7.7); Neutrophil % 70.3 % (47-70); Platelet Count 192 K/mm3 (150-450); RBC Distribution Width CV 14.8 % (11.6-14.6); RBC Distribution Width SD 50.2 fl (35.1-43.9); Red Blood Count 5.02 M/mm3 (4.2-5.4); White Blood Count 7.4 K/mm3 (4.4-11.0)
[2023-08-21] MEDS: fentaNYL 100 MCG/2 ML Ampul 25 MCG IV (06:58)
[2023-08-21] MEDS: Ondansetron 4 MG/2 ML Vial IV (06:58)
[2023-08-21] MEDS: 0.9% Normal Saline (500mL Bag) 500 ML 999 ML IV ×2 (06:58→08:31)
[2023-08-21 07:16] LABS: AST(SGOT) 41 U/L (15-37); Alanine Aminotransfer ALT/SGPT 28 U/L (13-56); Albumin, Serum 3.5 g/dL (3.2-5.0); Alkaline Phosphatase 77 U/L (45-117); Anion Gap 10 (5-15); BUN 21 mg/dL (7-18); BUN/Creat Ratio 12.1 RATIO (10-20); Bilirubin, Direct 0.25 mg/dL (0.00-0.30); Calcium,Total 9.2 mg/dL (8.5-10.1); Chloride 105 mmol/L (98-107); Creatinine, Serum 1.74 mg/dL (0.55-1.02); EST Glomerular Filtration Rate 30 mL/min (>60); Est Glom Filt Rate - Afr Amer 37 mL/min (>60); Estimated Creatinine Clearance 30.57 ml/min; Globulin 3.1 g/dL (2.2-4.2); Glucose 202 mg/dL (74-106); Lipase 34 U/L (13-75); Potassium 4.3 mmol/L (3.5-5.1); Protein, Total 6.6 g/dL (6.4-8.2); Sodium Level 138 mmol/L (136-145); Troponin-I HS 8 pg/mL (3.0-54.0)
--- NOTE | 2023-08-21 07:21 | EDS_ITS ---
HPI History of Present Illness Chief Complaint: Chest Pain Informant: patient and EMS Narrative Narrative: Patient is a 78-year-old female with past medical history of chronic atrial fibrillation status post pacemaker on Xarelto. She also has a history of type 2 diabetes as well as hypertension and hyperlipidemia. She states she went to bed normally and then awoke around 3 or 4 in the morning with upper abdominal pain. She reports nausea soda with this but denies any vomiting. She states that there has been no dysuria or diarrhea and she reports she is still passing gas. She states that the pain began to creep up into her chest and with her previous history of cardiovascular disease she was concerned this could be cardiac in nature and therefore comes in for evaluation. [facility] Medical History Right renal stone Cataracts, bilateral Wears glasses Wears dentures History of echocardiogram Ambulates with cane Arthritis History of hiatal hernia History of diverticulitis Non-smoker CPAP (continuous positive airway pressure) dependence Sleep apnea Cardiology follow-up encounter History of stress test History of atrial fibrillation Atrial fibrillation Pacemaker Symptomatic bradycardia Essential (primary) hypertension Fecal incontinence Cystocele with rectocele Atrophic vaginitis Lichen sclerosus Hypokalemia Back problem Dysphagia Depression Anxiety HLD (hyperlipidemia) IRON (obstructive sleep apnea) Family history of diabetes mellitus Family history of cardiovascular disease History of detached retina repair Home Medications ?Medication ?Instructions ?Recorded ?Last Taken ?Type cholecalciferol (vitamin D3) 25 2,000 unit PO QDAY supplement 07/06/17 06/11/23 History mcg (1,000 unit) tablet citalopram 20 mg tablet 20 mg PO DAILY 02/09/21 06/11/23 History rivaroxaban 20 mg tablet (Xarelto) 20 mg PO QHS #90 tabs 08/01/22 06/08/23 Rx metoprolol tartrate 100 mg tablet 100 mg PO BID #180 tabs 09/18/22 06/12/23 Rx omeprazole 20 mg capsule,delayed 20 mg PO DAILY 12/20/22 06/11/23 History release furosemide 40 mg tablet See Rx Instructions .Route 02/26/23 06/11/23 Rx .COMPLEX #90 tabs sitagliptin phosphate 25 mg tablet 25 mg PO DAILY 02/27/23 06/11/23 History (Januvia) flecainide 150 mg tablet 150 mg PO Q12H #180 tabs 05/31/23 06/12/23 Rx clobetasol 0.05 % topical ointment 1 applic topical .COMPLEX #15 grams 07/17/23 Unknown Rx estradiol 0.01% (0.1 mg/gram) See Rx Instructions vaginal 07/17/23 Unknown Rx vaginal cream .COMPLEX #42.5 grams Allergy/AdvReac Type Severity Reaction Status Date / Time dapagliflozin (From Farxiga) Allergy Severe Nausea/Vom/ Verified 08/21/23 06:36 Diarrhea dronedarone (From Multaq) Allergy Severe ANAPHYLAXIS Verified 08/21/23 06:[facility] [place] code[facility] Allergy Intermediate PT UNSURE Verified 08/21/23 06:36 OF REACTION meloxicam (From Mobic) Allergy Intermediate PT UNSURE Verified 08/21/23 06:36 OF REACTION nitrofurantoin Allergy Intermediate PT UNSURE Verified 08/21/23 06:36 OF REACTION Penicillins Allergy Intermediate PT UNSURE Verified 08/21/23 06:36 OF REACTION sulfamethoxazole (From Allergy Intermediate PT UNSURE Verified 08/21/23 06:36 Bactrim) OF REACTION trimethoprim (From Bactrim) Allergy Intermediate PT UNSURE Verified 08/21/23 06:36 OF REACTION vibegron (From Gemtesa) Allergy Unknown Unknown Verified 08/21/23 06:36 metformin AdvReac PT UNSURE Verified 08/21/23 06:36 OF REACTION Family History Father Cancer Prostate cancer Mother Myocardial infarction Arthritis Sister Breast cancer Brother Diabetes CHF (congestive heart failure) Myocardial infarction Son Diabetes Other Family history of cardiovascular disease Family history of diabetes mellitus Surgical History History of esophagogastroduodenoscopy (EGD) History of colonoscopy (~05/2023) Hx of parathyroidectomy History of cystoscopy History of permanent cardiac pacemaker placement (01/17/21) History of cardioversion (07/21/19) History of left heart catheterization (07/29/08) History of cholecystectomy (1977) History of tubal ligation (1981) Social History Smoking Status: Never smoker alcohol intake: never substance use type: does not use caffeine: No what type of physical activity do you participate in: walking frequency: 5-6 times per week seatbelt use: always do you feel safe at home: Yes additional social history: - retired ROS ROS ED Constitutional Constitutional ED: Denies chills or fever(s) Eyes Eyes: Denies blurry vision or change in vision ENT ENT ED: Denies sore throat Cardiovascular Cardiovascular: Reports chest pain; Denies palpitations or racing heartbeat Respiratory/Chest Respiratory/Chest: Denies cough or dyspnea Gastrointestinal Gastrointestinal: Reports abdominal pain and nausea; Denies diarrhea or vomiting Genitourinary Genitourinary ED: Denies dysuria or hematuria Musculoskeletal Musculoskeletal: Denies back pain or myalgias Integumentary Denies rash Neurologic Neurologic: Denies headache(s) Hematologic/Lymphatic Hematologic/Lymphatic: Reports easy bleeding and easy bruising EXAM Physical Exam Const Vital Signs: 08/21/23 06:27 08/21/23 06:28 Temperature 97 F L Temperature Source Temporal Pulse Rate 121 H 119 H Respiratory Rate 14 16 Blood Pressure 90/74 Blood Pressure Mean 79 Pulse Ox 99 97 Oxygen Delivery Method Nasal Cannula Oxygen Flow Rate (L/min) 2 Positive well nourished, well developed and obese General Appearance ED: well developed; Negative for pallor Nutritional Appearance: obese HEENT Reports moist mucous membranes HEENT Narrative: No tongue or lip swelling no oral lesions no airway edema or compromise No secondary findings in the posterior pharynx to suggest infection Eyes PERRL and EOMs intact bilaterally General Eye ED: Negative for pale conjunctiva or scleral icterus Neck supple Neck Narrative: No nuchal rigidity or meningeal signs noted Chest Wall palpation of chest normal Resp normal respiratory effort and clear to auscultation bilaterally Resp Narrative: Breath sounds are slight diminished throughout but overall clear to auscultation Cardio regular rhythm Rate: tachycardic and other Other Details: Tachycardic rate with regular rhythm Radial and carotid pulses are equal and symmetric GI non-distended GI Narrative: Abdomen is soft and nondistended with normal active bowel sounds. Patient has pain with palpation in the midepigastric and right lower quadrant region. There is no voluntary guarding or rigidity. No pulsatile mass or fluid wave. No obvious hernia palpated. No increased tympany noted. Auscultation: normoactive bowel sounds Palpation: soft Extremity Extremity Narrative: Trace to +1 pitting edema to the bilateral lower extremities that is equal and symmetric Negative Homans' sign bilaterally Neuro oriented x3, CN's II-XII intact bilaterally and no sensory deficits noted Sensorium / Orientation: alert Motor Exam: strength 5/5 throughout Psych mental status grossly normal Skin no rashes or lesions noted General Skin Exam: Negative for jaundice or pallor MDM MDM MDM Narrative Medical decision making narrative: Patient arrived to the ER mildly tachycardic but otherwise with stable vitals. She reported she woke up with abdominal pain and then noticed it was in the lower chest and with her cardiac history this concerned her. Differential diagnosis is for pancreatitis versus colitis versus ileus versus obstruction versus UTI versus kidney stone versus acute coronary syndrome. The patient is on Xarelto and therefore my concern for DVT or mesenteric ischemia is low. The patient's initial troponin is 8 going against acute coronary syndrome and her lipase is also normal going against acute pancreatitis. However with pain in the right lower quadrant there is still concern for potential appendicitis and even though there is no obvious signs of distention there is still concern for potential ileus versus obstruction. Therefore a CT scan with IV contrast will be obtained. At this time patient will still need her delta troponin as well as CT scan obtained. As those testing values are still pending she will be signed out to the day physician Dr. Miner pending results. I do feel that if overall workup is negative and patient's pain has improved with the provided medication she should be safe for discharge History & Record Review Discussion w/independent historian: EMS personnel and Patient Lab Data Attestation: I reviewed the patient's lab results. Labs: Laboratory Results - last 24 hr 08/21/23 06:36 WBC 7.4 RBC 5.02 Hgb 15.0 Hct 47.0 MCV 93.6 MCH 29.9 MCHC 31.9 L RDW Std Deviation 50.2 H RDW Coeff of Inderjit 14.8 H Plt Count 192 MPV 10.4 Immature Gran % (Auto) 1.100 H Neut % (Auto) 70.3 H Lymph % (Auto) 21.8 Caroline % (Auto) 5.6 Eos % (Auto) 0.8 Baso % (Auto) 0.4 Absolute Neuts (auto) 5.2 Absolute Lymphs (auto) 1.62 Nucleated RBC % 0 Sodium 138 Potassium 4.3 Chloride 105 Carbon Dioxide 23.0 Anion Gap 10 BUN 21 H Creatinine 1.74 H Estim Creat Clear Calc 30.57 Est GFR (MDRD) Af Amer 37 L Est GFR (MDRD) Non-Af 30 L BUN/Creatinine Ratio 12.1 Glucose 202 H Calcium 9.2 Total Bilirubin 0.80 Direct Bilirubin 0.25 AST 41 H ALT 28 Alkaline Phosphatase 77 Troponin I High Sens 8 Total Protein 6.6 Albumin 3.5 Globulin 3.1 Lipase 34 Discharge Plan Triage Chief Complaint: Chest Pain ED Provider: Sami Madrid Dx/Rx/DC Orders Prescriptions: No Action cholecalciferol (vitamin D3) 1,000 unit tablet 2,000 unit PO QDAY clobetasol 0.05 % ointment 1 applic topical .COMPLEX Qty: 15 1RF Rx Instructions: 1 applic topical daily up to one week for symptoms Small amount and massge in; estradiol 0.01 % (0.1 mg/gram) cream See Rx Instructions vaginal .COMPLEX Qty: 42.5 2RF Rx Instructions: small amount as directed vaginal twice a week; omeprazole 20 mg capsule,delayed release(DR/EC) 20 mg PO DAILY Januvia 25 mg tablet 25 mg PO DAILY citalopram 20 mg Tablet 20 mg PO DAILY Xarelto 20 mg tablet 20 mg PO QHS Qty: 90 3RF Patient Comments: HOLD 3 DAYS PRE-OP Rx Instructions: must administer with evening meal metoprolol tartrate 100 mg tablet 100 mg PO BID Qty: 180 3RF furosemide 40 mg tablet See Rx Instructions .ROUTE .COMPLEX Qty: 90 3RF Dose Instruction: TAKE 1 TABLET BY MOUTH EVERY DAY NEEDED FOR SHORTNESS OF BREATH Rx Instructions: TAKE 1 TABLET BY MOUTH EVERY DAY NEEDED FOR SHORTNESS OF BREATH flecainide 150 mg tablet 150 mg PO Q12H Qty: 180 3RF Primary Care Provider: Bria Spencer Referrals: Bria Spencer MD [Primary Care Provider] - Print Language: Yi
[2023-08-21 08:52] LABS: Bacteria 0 SEEN /hpf (None Seen); Mucous, Urine 0 SEEN /hpf (<or=2+)
[2023-08-21 08:54] LABS: Color, Urine Yellow (Yellow); Glucose, Dipstick Normal (Normal); Ketone-Dipstick 5 mg/dl (Negative); Leukocyte Esterase-Dipstick 25 /ul (Negative); Nitrite-Dipstick Negative (Negative); Occult Blood-Urine 10 /ul (Negative); Protein-Dipstick 100 mg/dl (Negative); Specific Gravity, Urine 1.025 (1.002-1.030); Urine Clarity Clear (Clear); Urine Urobilinogen 1 mg/dl (Normal)
[2023-08-21 08:55] LABS: Urine Bilirubin Dipstick 1 mg/dL (Negative)
[2023-08-21 09:05] LABS: Troponin-I HS 8 pg/mL (3.0-54.0)
[2023-08-21 09:24] LABS: Calcium Oxalate Crystals Ur 2+ /hpf (<or=2+); Red Blood Cells-Urine 0-5 SEEN /hpf (0-5); Squamous Epithelial Cells - UA 0-5 SEEN /hpf (5-10); White Blood Cells 0-5 SEEN /hpf (0-5)
--- NOTE | 2023-08-21 14:37 | EDS_ITS ---
HPI History of Present Illness Chief Complaint: Chest Pain [facility] Medical History Right renal stone Cataracts, bilateral Wears glasses Wears dentures History of echocardiogram Ambulates with cane Arthritis History of hiatal hernia History of diverticulitis Non-smoker CPAP (continuous positive airway pressure) dependence Sleep apnea Cardiology follow-up encounter History of stress test History of atrial fibrillation Atrial fibrillation Pacemaker Symptomatic bradycardia Essential (primary) hypertension Fecal incontinence Cystocele with rectocele Atrophic vaginitis Lichen sclerosus Hypokalemia Back problem Dysphagia Depression Anxiety HLD (hyperlipidemia) IRON (obstructive sleep apnea) Family history of diabetes mellitus Family history of cardiovascular disease History of detached retina repair Home Medications ?Medication ?Instructions ?Recorded ?Last Taken ?Type cholecalciferol (vitamin D3) 25 2,000 unit PO QDAY supplement 07/06/17 06/11/23 History mcg (1,000 unit) tablet citalopram 20 mg tablet 20 mg PO DAILY 02/09/21 06/11/23 History rivaroxaban 20 mg tablet (Xarelto) 20 mg PO QHS #90 tabs 08/01/22 06/08/23 Rx metoprolol tartrate 100 mg tablet 100 mg PO BID #180 tabs 09/18/22 06/12/23 Rx omeprazole 20 mg capsule,delayed 20 mg PO DAILY 12/20/22 06/11/23 History release furosemide 40 mg tablet See Rx Instructions .Route 02/26/23 06/11/23 Rx .COMPLEX #90 tabs sitagliptin phosphate 25 mg tablet 25 mg PO DAILY 02/27/23 06/11/23 History (Januvia) flecainide 150 mg tablet 150 mg PO Q12H #180 tabs 05/31/23 06/12/23 Rx clobetasol 0.05 % topical ointment 1 applic topical .COMPLEX #15 grams 07/17/23 Unknown Rx estradiol 0.01% (0.1 mg/gram) See Rx Instructions vaginal 07/17/23 Unknown Rx vaginal cream .COMPLEX #42.5 grams cephalexin 500 mg capsule 500 mg PO TID 5 days #15 CAPSULES 08/21/23 Unknown Rx oxycodone-acetaminophen 5 mg-325 1 tab PO Q6H PRN PRN Pain 3 days 08/21/23 Unknown Rx mg tablet #12 TABLETS Allergy/AdvReac Type Severity Reaction Status Date / Time dapagliflozin (From Farxiga) Allergy Severe Nausea/Vom/ Verified 08/21/23 06:36 Diarrhea dronedarone (From Multaq) Allergy Severe ANAPHYLAXIS Verified 08/21/23 06:[facility] [place] [facility] Allergy Intermediate PT UNSURE Verified 08/21/23 06:36 OF REACTION meloxicam (From Mobic) Allergy Intermediate PT UNSURE Verified 08/21/23 06:36 OF REACTION nitrofurantoin Allergy Intermediate PT UNSURE Verified 08/21/23 06:36 OF REACTION Penicillins Allergy Intermediate PT UNSURE Verified 08/21/23 06:36 OF REACTION sulfamethoxazole (From Allergy Intermediate PT UNSURE Verified 08/21/23 06:36 Bactrim) OF REACTION trimethoprim (From Bactrim) Allergy Intermediate PT UNSURE Verified 08/21/23 06:36 OF REACTION vibegron (From Gemtesa) Allergy Unknown Unknown Verified 08/21/23 06:36 metformin AdvReac PT UNSURE Verified 08/21/23 06:36 OF REACTION Family History Father Cancer Prostate cancer Mother Myocardial infarction Arthritis Sister Breast cancer Brother Diabetes CHF (congestive heart failure) Myocardial infarction Son Diabetes Other Family history of cardiovascular disease Family history of diabetes mellitus Surgical History History of esophagogastroduodenoscopy (EGD) History of colonoscopy (~05/2023) Hx of parathyroidectomy History of cystoscopy History of permanent cardiac pacemaker placement (01/17/21) History of cardioversion (07/21/19) History of left heart catheterization (07/29/08) History of cholecystectomy (1977) History of tubal ligation (1981) Social History Smoking Status: Never smoker alcohol intake: never substance use type: does not use caffeine: No what type of physical activity do you participate in: walking frequency: 5-6 times per week seatbelt use: always do you feel safe at home: Yes additional social history: - retired EXAM Physical Exam Const Vital Signs: 08/21/23 06:27 08/21/23 06:28 08/21/23 07:27 Temperature 97 F L Temperature Source Temporal Pulse Rate 121 H 119 H 114 H Respiratory Rate 14 16 18 Blood Pressure 90/74 115/97 H Blood Pressure Mean 79 103 Pulse Ox 99 97 98 Oxygen Delivery Method Nasal Cannula Room Air Oxygen Flow Rate (L/min) 2 08/21/23 07:58 08/21/23 09:00 08/21/23 10:00 Temperature Temperature Source Pulse Rate 108 H 112 H 100 Respiratory Rate 18 18 18 Blood Pressure 103/81 H 122/90 H 122/87 H Blood Pressure Mean 88 100 98 Pulse Ox 98 98 97 Oxygen Delivery Method Room Air Room Air Room Air Oxygen Flow Rate (L/min) 08/21/23 11:00 08/21/23 12:02 Temperature 97.8 F Temperature Source Pulse Rate 102 H 81 Respiratory Rate 17 18 Blood Pressure 121/80 H 120/88 H Blood Pressure Mean 93 98 Pulse Ox 98 98 Oxygen Delivery Method Room Air Oxygen Flow Rate (L/min) MDM MDM Lab Data Labs: Laboratory Results - last 24 hr 08/21/23 08/21/23 08/21/23 06:36 08:36 08:46 WBC 7.4 RBC 5.02 Hgb 15.0 Hct 47.0 MCV 93.6 MCH 29.9 MCHC 31.9 L RDW Std Deviation 50.2 H RDW Coeff of Inderjit 14.8 H Plt Count 192 MPV 10.4 Immature Gran % (Auto) 1.100 H Neut % (Auto) 70.3 H Lymph % (Auto) 21.8 [place] % (Auto) 5.6 Eos % (Auto) 0.8 Baso % (Auto) 0.4 Absolute Neuts (auto) 5.2 Absolute Lymphs (auto) 1.62 Nucleated RBC % 0 Sodium 138 Potassium 4.3 Chloride 105 Carbon Dioxide 23.0 Anion Gap 10 BUN 21 H Creatinine 1.74 H Estim Creat Clear Calc 30.57 Est GFR (MDRD) Af Amer 37 L Est GFR (MDRD) Non-Af 30 L BUN/Creatinine Ratio 12.1 Glucose 202 H Calcium 9.2 Total Bilirubin 0.80 Direct Bilirubin 0.25 AST 41 H ALT 28 Alkaline Phosphatase 77 Troponin I High Sens 8 8 Total Protein 6.6 Albumin 3.5 Globulin 3.1 Lipase 34 Urine Color Yellow Urine Clarity Clear Urine pH 5.0 Ur Specific [place] 1.025 Urine Protein 100 H Urine Glucose (UA) Normal Urine Ketones 5 H Urine Occult Blood 10 H Urine Nitrite Negative Urine Bilirubin 1 H Urine Urobilinogen 1 H Ur Leukocyte Esterase 25 H Urine RBC 0-5 SEEN Urine WBC 0-5 SEEN Ur Squamous Epith Cells 0-5 SEEN Calcium Oxalate Crystal 2+ Urine Bacteria 0 SEEN Urine Mucus 0 SEEN Radiography Diagnostic Testing: Clinical Impression(s) from Imaging Studies Abdomen/Pelvis CT 08/21/23 06:44 IMPRESSION: 1. Hepatomegaly and mild hepatic steatosis. 2. Nonspecific mild perinephric stranding without evidence of hydronephrosis. 3. Diverticulosis. No evidence of acute diverticulitis. 4. Free fluid in the pelvis. Electronically Signed: Elliot Alvarenga MD at 8:42 EDT , Chest X-Ray 08/21/23 06:44 IMPRESSION: 1. Mild enlargement of cardiac silhouette. 2. No acute cardiopulmonary disease. Electronically Signed: Elliot Alvarenga MD at 8:43 EDT , Discharge Plan Triage Chief Complaint: Chest Pain ED Provider: Sami Madrid Dx/Rx/DC Orders Clinical Impression: Abdominal pain, Free fluid in pelvis Instructions: Abdominal Pain Prescriptions: New oxycodone-acetaminophen 5-325 mg tablet 1 tab PO Q6H PRN PRN (Reason: Pain) 3 Days Qty: 12 0RF cephalexin 500 mg capsule 500 mg PO TID 5 Days Qty: 15 0RF No Action cholecalciferol (vitamin D3) 1,000 unit tablet 2,000 unit PO QDAY clobetasol 0.05 % ointment 1 applic topical .COMPLEX Qty: 15 1RF Rx Instructions: 1 applic topical daily up to one week for symptoms Small amount and massge in; estradiol 0.01 % (0.1 mg/gram) cream See Rx Instructions vaginal .COMPLEX Qty: 42.5 2RF Rx Instructions: small amount as directed vaginal twice a week; omeprazole 20 mg capsule,delayed release(DR/EC) 20 mg PO DAILY Januvia 25 mg tablet 25 mg PO DAILY citalopram 20 mg Tablet 20 mg PO DAILY Xarelto 20 mg tablet 20 mg PO QHS Qty: 90 3RF Patient Comments: HOLD 3 DAYS PRE-OP Rx Instructions: must administer with evening meal metoprolol tartrate 100 mg tablet 100 mg PO BID Qty: 180 3RF furosemide 40 mg tablet See Rx Instructions .ROUTE .COMPLEX Qty: 90 3RF Dose Instruction: TAKE 1 TABLET BY MOUTH EVERY DAY NEEDED FOR SHORTNESS OF BREATH Rx Instructions: TAKE 1 TABLET BY MOUTH EVERY DAY NEEDED FOR SHORTNESS OF BREATH flecainide 150 mg tablet 150 mg PO Q12H Qty: 180 3RF Primary Care Provider: Bria Spencer Referrals: Bria Spencer MD [Primary Care Provider] - Ninfa Mejia MD [Med Staff - Active Staff] - As soon as possible Activity Restrictions/Additional Instructions: As we discussed I see some free fluid in your pelvis and around the kidney up into the right upper quadrant of your abdomen. It is difficult to say exactly what this is from. As this is a holiday week I feel that if you continue to have symptoms in the next 24 to 48 hours you should return to the emergency department for repeat evaluation. If you are worsening you need to come back to the emergency department. I am writing you to have some pain medication as well as an antibiotic for the urine. Print Language: Icelandic Disposition Disposition: Home, Self Care Discharge Date/Time: 08/21/23 12:03
== END 2023-08-21 12:03 | disposition home or self-care (01) ==
PROVIDERS: Emergency Provider Emergency Medicine; PCP Family Medicine; Visit Provider Emergency Medicine
DX: R07.9 Chest pain, unspecified (principal); E11.9 Type 2 diabetes mellitus without complications; E66.9 Obesity, unspecified; G47.33 Obstructive sleep apnea (adult) (pediatric); Z95.0 Presence of cardiac pacemaker; Z79.01 Long term (current) use of anticoagulants
CPT/HCPCS: 71045; 74177; 80048; 80076; 81001; 83690; 84484; 85025; 93005; 96361; 96374; 96375; 96376; 99283; J7040; P9612; Q9967; A4216; J2405

== ENCOUNTER → 2023-08-29 | Outpatient (CLI) | payer MEDICARE, SELFPAY ==
[2023-08-29 10:46] LABS: ALB/GLOB Ratio 1.2 RATIO (0.9-2.4); AST(SGOT) 20 U/L (15-37); Alanine Aminotransfer ALT/SGPT 26 U/L (13-56); Albumin, Serum 3.6 g/dL (3.2-5.0); Alkaline Phosphatase 97 U/L (45-117); Anion Gap 6 (5-15); BUN 15 mg/dL (7-18); BUN/Creat Ratio 12.5 RATIO (10-20); Calcium,Total 8.9 mg/dL (8.5-10.1); Chloride 107 mmol/L (98-107); Cholesterol 130 mg/dL (200); EST Glomerular Filtration Rate 46 mL/min (>60); Est Glom Filt Rate - Afr Amer 56 mL/min (>60); Globulin 3.1 g/dL (2.2-4.2); Glucose 112 mg/dL (74-106); High Density Lipoprotein 42 mg/dL; Protein, Total 6.7 g/dL (6.4-8.2); Sodium Level 139 mmol/L (136-145); Triglycerides 89 mg/dL; Very Low Density Lipoprotein 18 mg/dL (5-40)
[2023-08-29 10:52] LABS: PTHIN 105.3 pg/mL (18.4-80.1)
[2023-08-29 11:11] LABS: Ionized Calcium 4.97 mg/dL (4.36-5.20)
[2023-08-29 12:07] LABS: Microalbumin:Creatinine Ratio 262.2 mg/g CRE (<30 mg/g CRE)
[2023-08-29 16:53] LABS: Ionized Calcium Order ORDER TUBE
== END | disposition home or self-care (01) ==
LOC: MTLAB 08:51
PROVIDERS: PCP Family Medicine; Referring Provider Family Medicine; Visit Provider Family Medicine
DX: E11.9 Type 2 diabetes mellitus without complications (principal); E21.3 Hyperparathyroidism, unspecified
CPT/HCPCS: 36415; 80053; 80061; 82043; 82330; 82570; 83970

== ENCOUNTER → 2023-09-10 | Outpatient (CLI) | payer MEDICARE, SELFPAY ==
--- NOTE | 2023-09-10 07:12 | ECHOCS_ITS ---
Reason For Study: Abnormal EKG Procedure This was a 2D Doppler, Color Flow transthoracic echocardiogram. Contrast injection was performed. Exam performed in department. Left Ventricle Normal LV size. The left ventricular ejection fraction is 45 %. Apical wall motion abnormality may reflect pacemaker activation. Right Ventricle Normal RV size. Normal systolic function. Atria The left atrium is moderately enlarged. The right atrium is moderately enlarged. Mitral Valve Normal mitral valve. Tricuspid Valve Normal tricuspid valve. Aortic Valve Trisinus/trileaflet aortic valve. Great Vessels Normal aortic root. The pulmonary artery is normal size. Normal inferior vena cava. Pericardium/Pleural No pericardial effusion. Medication 22 gauge I.V. with prn adaptor inserted into left arm. Diluted definity 3ml given slow IV push to enhance endocardial definition. MMode/2D Measurements & Calculations LVIDd: 5.2 cm IVSd: 0.67 cm Ao root diam: 3.2 cm LVIDs: 4.2 cm LVPWd: 0.66 cm LA dimension: 4.5 cm RVDd: 3.9 cm FS: 20.0 % LAV(MOD-bp): 85.5 ml LVAd ap4: 33.7 cm2 SV(MOD-sp4): 53.7 ml LAV(MOD-bp) Indexed: 43.6 ml/m2 LVLd ap4: 7.7 cm LAV(MOD-sp2): 74.1 ml EDV(MOD-sp4): 120.7 ml LAV(MOD-sp4): 98.4 ml EDV(sp4-el): 125.8 ml LVAs ap4: 23.4 cm2 LVLs ap4: 6.6 cm ESV(MOD-sp4): 67.0 ml ESV(sp4-el): 70.1 ml EF(MOD-sp4): 44.5 % EF(sp4-el): 44.3 % SV(sp4-el): 55.7 ml LA A4 area: 29.6 cm2 RA A4 area: 31.6 cm2 Doppler Measurements & Calculations MV E max richard: 93.0 cm/sec MV V2 max: 100.0 cm/sec Ao V2 max: 146.7 cm/sec MV max P.0 mmHg Ao max P.6 mmHg MV V2 mean: 50.2 cm/sec Ao V2 mean: 112.1 cm/sec MV mean P.3 mmHg Ao mean P.5 mmHg MV V2 VTI: 29.2 cm Ao V2 VTI: 29.2 cm AV (velocity ratio): 0.65 LV V1 max: 96.7 cm/sec MR max richard: 542.0 cm/sec PA V2 max: 73.8 cm/sec LV V1 max P.8 mmHg MR max P.5 mmHg PA max PG (full): 0.35 mmHg LV V1 mean P.5 mmHg MR mean richard: 430.9 cm/sec PA V2 mean: 47.9 cm/sec LV V1 mean: 74.7 cm/sec MR mean P.4 mmHg PA mean PG (full): -0.03 mmHg LV V1 VTI: 19.0 cm MR VTI: 223.4 cm TR max richard: 263.8 cm/sec TR max P.8 mmHg ECHO/Echo Complete W/ Contrast Interpretation Summary Normal LV size. The left ventricular ejection fraction is 45 %. Apical wall motion abnormality may reflect pacemaker activation. The left atrium is moderately enlarged. The right atrium is moderately enlarged. Contrast injection was performed. Ordering Physician: Sergio Abebe Referring Physician: Sergio Abebe Performed By: Beck Rodriguez RCS
--- NOTE | 2023-09-10 10:51 | STRESSREP_ITS ---
Stress Test Report Pharmacologic myocardial perfusion stress test. 78-year-old lady with a history of pacemaker implantation Resting EKG demonstrates AV sequential pacing with a left bundle branch block pattern with a rate of 67 bpm. Resting blood pressure is 110/70 mmHg. 0.4 mg of regadenoson was infused per usual protocol followed by rapid intravenous keven ine flush injection. Continuous EKG monitoring was performed. The maximum heart rate was 82 bpm which was 56% of max impacted heart rate the maximum workload was 1 metabolic equivalent. At rest there were no ST or T wave changes noted to suggest ischemia and at peak infusion nonspecific ST changes were noted which did not meet the criteria for ischemia. No clinical angina is noted. The final blood pressure was 104/60 mmHg. Myocardial perfusion protocol. 13 point mCi of technetium 99m sestamibi was injected at rest. 0.4 mg of regadenoson was infused per usual protocol. At peak infusion 41.9 mCi of technetium 99m sestamibi was injected stress images were obtained stress and rest images were reconstructed and compared in the short axis vertical long and horizontal long axis. Gated images were also obtained. Perfusion SPECT analysis: Review of the stress images demonstrate normal uptake of tracer noted in all areas of the myocardium except for the apex which has an area of reduced perfusion on the stress and resting images. This could be due to permanent pacemaker activity. No ischemia is noted apical infarct cannot be completely excluded Gated SPECT analysis: The gated ejection fraction is 45%. Conclusion: Normal pharmacologic myocardial perfusion stress test with apical perfusion defect. Mildly reduced ejection fraction.
== END | disposition home or self-care (01) ==
LOC: CVS 07:09
PROVIDERS: PCP Family Medicine; Referring Provider Nurse Practitioner Family; Visit Provider Nurse Practitioner Family
DX: I48.19 Other persistent atrial fibrillation (principal); I10 Essential (primary) hypertension; E78.5 Hyperlipidemia, unspecified; R94.31 Abnormal electrocardiogram [ECG] [EKG]; Z95.0 Presence of cardiac pacemaker
CPT/HCPCS: 78452; 93017; 93306; A9500; Q9957; A4216; C8929; J2785

== ENCOUNTER → 2024-03-07 | Outpatient (CLI) | payer MEDICARE, SELFPAY ==
--- NOTE | 2024-03-07 11:04 | RAD_ITS ---
STUDY: X-RAY - RIGHT SHOULDER REASON FOR EXAM: Female, 78 years old. PAIN TECHNIQUE: 4 view(s) of the shoulder. COMPARISON: Chest x-ray dated August 21, 2023. FINDINGS: There is mild degenerative arthrosis of the glenohumeral articulation. Normal acromioclavicular joint. Normal acromion. Normal humeral head and visualized proximal humerus. The soft tissue structures are unremarkable. There is no demonstrated fracture. Normal visualized pulmonary apex. RAD/Shoulder min 2 Views IMPRESSION: Mild shoulder joint narrowing Electronically Signed: Helder Baumann MD at 10:39 EST ,
--- NOTE | 2024-03-07 11:04 | RAD_ITS ---
STUDY: X-RAY - LEFT SHOULDER REASON FOR EXAM: Female, 78 years old. PAIN TECHNIQUE: 5 view(s) of the shoulder. COMPARISON: None. FINDINGS: Normal glenohumeral articulation. Normal acromioclavicular joint. Normal acromion. Normal humeral head and visualized proximal humerus. The soft tissue structures are unremarkable. There is no demonstrated fracture. Left chest cardiac device and leads are present. Normal visualized pulmonary apex. RAD/Shoulder min 2 Views IMPRESSION: Normal x-ray examination of the shoulder. Electronically Signed: Helder Baumann MD at 10:38 EST ,
== END | disposition home or self-care (01) ==
LOC: MTRAD 11:02
PROVIDERS: PCP Family Medicine; Referring Provider Family Medicine; Visit Provider Family Medicine
DX: M25.511 Pain in right shoulder (principal); M25.512 Pain in left shoulder
CPT/HCPCS: 73030

== ENCOUNTER → 2024-07-01 | Outpatient (CLI) | payer MEDICARE, SELFPAY | END | disposition home or self-care (01) | LOC: RAD 12:58 | PROVIDERS: PCP Family Medicine; Referring Provider Nurse Practitioner Acute Care; Visit Provider Nurse Practitioner Acute Care | DX: R13.10 Dysphagia, unspecified (principal) | CPT/HCPCS: 74230 ==

== ENCOUNTER → 2024-07-07 | Outpatient (CLI) | payer MEDICARE, SELFPAY ==
--- NOTE | 2024-07-01 12:57 | SP.MBSS_ITS ---
Modified Barium Swallow Patient Information Study Date: 07/01/24 Study Time: 13:00 Direct Billable Minutes: 94 Total Minutes procedure & reportin Diagnosis: Dysphagia R13.10 Referring Physician: Clarisse Walden Reason for Referral: Pt recently attended OP GI office visit 05/15/2024 and reported complaints of dysphagia in her upper esophagus with solid foods and occasional hold-up of liquids. EGD performed 1 year ago was unremarkable. She was recommended for this MBSS, as well as barium esophagram. The patient reports swallowing difficulty for the past 3 years. ~1-2X/week she feels as if she has a marble in her throat when swallowing foods or drinks. Coughing or a liquid wash typically clears this sensation. No regurgitation or odynophagia. She initially attributed her difficulty to eating/drinking too fast; however, her difficulty still occurs if shes taking food/drink slowly. Medical History: PMH: Right renal stone, Cataracts bilateral, Wears glasses, Wears dentures, Arthritis, History of hiatal hernia, History of diverticulitis, Non-smoker, Sleep apnea, Hx of A fib, Symptomatic bradycardia, HTN, Fecal incontinence, Cystocele with rectocele, Hypokalemia, Dysphagia, Depression, Anxiety, HLD, IRON - See EMR for full PMH. Surgical Hx: History of GGD (2023, WNL), Hx of parathyroidectomy, History of permanent cardiac pacemaker placement (01/17/21). See EMR for full surgical history. Current Diet Ordered: Regular textures / Thin liquids Dentition: Natural Teeth and Upper Dentures Mental Status: WNL Respiratory Status: Oxygenating on Room Air Penetration-Aspiration Scale Penetration-Aspiration Scale: OBJECTIVE ASSESSMENT OF SWALLOW FUNCTION (QUANTITATIVE ? PER TRIAL): PENETRATION / ASPIRATION SCALE (NUNEZ): 1 = does not enter airway 2 = enters airway/above vocal folds/ejected 3 = enters airway/above vocal folds/not ejected 4 = enters airway/contacts vocal folds/ejected 5 = enters airway/contacts vocal folds/not ejected 6 = enters airway/below vocal folds/ejected 7 = enters airway/below vocal folds/not ejected despite effort 8 = enters airway/below vocal folds/no effort VIDEOFLOROSCOPIC SCALE SCORE (NUNEZ): Grade I = aspiration of material that has penetrated into the laryngeal vestibule, intact cough reflex Grade II = aspiration < 10 % of the bolus, intact cough reflex Grade III = aspiration of < 10 % of the bolus, reduced cough reflex or aspiration of > 10 % of the bolus, intact cough reflex Grade IV = aspiration of > 10 % of the bolus, reduced cough reflex Penetration-Aspiration Scale Score Thin Liquid via teaspoon: Result: 2= enter airway/above vocal folds/ejected Thin Liquid via teaspoon Trial 2: Result: 1= does not enter airway Thin Liquid via large single sip: cup: Result: 1= does not enter airway Thin Liquid via sequential sips: cup: Result: 2= enter airway/above vocal folds/ejected [place] Thick Liquid via large single sip: cup: Result: 2= enter airway/above vocal folds/ejected Pudding via teaspoon: Result: 1= does not enter airway Comment: Esophageal screen - Minimal retention in the UES. Retention of majority of trial in the middle and lower esophagus. Thin Liquid via single sip: straw: Result: 1= does not enter airway Comment: Esophageal screen - Liquid wash mostly cleared retention of previous trial; however, some retrograde flow of liquids through the LES. 1/2 Cookie: Result: 1= does not enter airway Comment: Esophageal screen - Retention of majority of trial in the middle and lower esophagus w/ minimal retrograde flow. Thin Liquid via single sip: straw Trial 2: Result: 1= does not enter airway Comment: Esophageal screen - Liquid wash mostly cleared retention of previous trial; however, some retrograde flow of liquids through the LES. Oral Phase Labial Seal: Interlabial escape, no progression to anterior lip Tongue Control During Bolus Hold: Posterior escape of greater than half of bolus (sequential thin) Bolus Preparation/Mastication: Slow prolonged chewing/mashing with complete recollection Bolus Transport/Lingual Motion: Repetitive/disorganized tongue motion Oral Residue: Residue collection on oral structures Pharyngeal Phase Initiation of Pharyngeal Swallow: Bolus head at posterior laryngeal surgace of epiglottis Soft Palate Elevation: Trace column of contrast/air between soft palate and pharyngeal wall Laryngeal Elevation: Comp. Superior move thyroid cart w/comp. apprx arytenoid cart-epig pet Anterior Hyoid Excursion: Partial anterior movement Epiglottic Movement: Complete inversion Laryngeal Vestibule Closure at Height of Swallow: Incomplete; narrow column of air/contrast in laryngeal vestibule (laryngeal penetration fully ejected by the end of the swallow) Pharyngeal Stripping Wave: Present - diminished Pharyngoesophageal Segment Opening: Parital distension and partial duration; parital obstruction of flow Tongue Base Retraction: Narrow column of contrast between tongue base & post. pharyngeal wall Pharyngeal Residue: Collection of residue within or on pharyngeal structures Esophageal Phase Esophageal Clearance: Esophageal retention w/ retrograde flow below pharyngoesophageal seg. Diagnosis/Impression Diagnosis: Mild oropharyngeal dysphagia R13.12; Esophageal dysphagia R13.14 Impression: The oral phase is primarily marked by... -Posterior loss of >1/2 of sequential thin liquids boluses to the posterior surface of the epiglottis prior to swallow onset. -Prolonged, but complete mastication. -Piecemeal deglutition of pudding, cookie, and even liquids. The pharyngeal phase is primarily marked by... -Mildly decreased TB retraction, pharyngeal stripping wave, and UES opening/duration resulting in trace-mild pharyngeal residues, most noticeable w/ pudding. -Decreased anterior hyoid excursion w/ trace laryngeal penetration of 2 thin liquid and 1 mildly thick liquid trials; however, the contrast fully ejected as the swallow was completed. No aspiration observed. The esophageal phase is primarily marked by... -Minimal retention of pudding in the UES, which cleared w/ liquid wash. -Significant retention of pudding and cookie in the lower and middle esophagus, which mostly cleared w/ liquid wash; however, liquid wash had some retrograde flow through the LES. Recommendations Diet: Regular Textures and Thin Liquids Comment: If sensation of retention despite use of liquid wash, stop meal and resume at a later time. Compensatory Strategies: Small Bites, Small Sips, Slow Rate, Alternate bites/solids and sips/liquids, Sitting upright and Remain sitting upright for 30 minutes after PO intake Recommend Repeat Modified Barium Swallow: No Need for Skilled Speech Therapy Services: Yes Comment: -Training in strategies to decrease risk for aspiration and reflux aspiration. -Training in oropharyngeal exercises, including lingual resistance, Tiffany, Effortful, Rishi, and Shaker. -Ongoing assessment of recommended diet textures. Recommended Referrals: GI Consult (Pt is safe to proceed w/ barium esophagram planned for next week.) Education Completed: 1. Described result of evaluation., 2. Pt understands evaluation & agrees with goals and treatment plan. and 7. Pt requires further education on strategies & risks. Status Active ST Patient: Active Contact Information [facility] Speech Therapy:: Shital Hernandes M.A. [facility]-J2EE ENGINEER? Speech-Language Pathologist?? [facility] [address] [place] [address]? [email or web address]?? [phone]
--- NOTE | 2024-07-07 09:15 | RAD_ITS ---
PROCEDURE: ESOPHAGUS DUAL CONTRAST 07/07/2024 REASON FOR EXAM: DYSPHAGIA TECHNIQUE: The patient ingested barium. Fluoroscopic imaging of the esophagus was performed. 1 minute and 14 seconds of fluoroscopy. 30.89 mGy. COMPARISON: None FINDINGS: The patient ingested barium. No evidence of esophageal obstruction. No evidence of gastroesophageal reflux. The patient ingested a 12 mm tablet the barium without difficulty. The patient tolerated the procedure well. RAD/Esophagus Dual Contrast IMPRESSION: Unremarkable air contrast esophagram. [facility]
== END | disposition home or self-care (01) ==
LOC: RAD 09:10
PROVIDERS: PCP Family Medicine; Referring Provider Nurse Practitioner Acute Care; Visit Provider Nurse Practitioner Acute Care
DX: R13.10 Dysphagia, unspecified (principal)
CPT/HCPCS: 74221; 92611

== ENCOUNTER → 2024-07-17 | Outpatient (CLI) | payer MEDICARE, SELFPAY ==
[2024-07-17 10:52] LABS: Absolute Lymphocyte Count 1.72 X10^3/uL (0.83-4.51); Absolute Neutrophil Count 6.2 X10^3/uL (2.0-7.7); Basophil# 0.05 X10^3/uL; Basophil% 0.6 % (0-1); Eosinophil# 0.11 X10^3/uL; Eosinophils% 1.2 % (0-5); Hematocrit 43.1 % (37-47); Hemoglobin 14.1 g/dL (12.0-15.0); Lymphocyte # 1.72 X10^3/ul (0.83-4.51); Lymphocyte % 19.5 % (19-41); Mean Corp Hgb Conc 32.7 g/dL (32-36); Mean Corpuscular Hgb 30.5 pg (27.0-32.0); Mean Corpuscular Volume 93.1 fL (81-99); Mean Platelet Vol. 9.8 fl (6.2-12.0); Monocyte# 0.71 X10^3/uL; NRBC Flagged by Analyzer 0 % (0-5); Neutrophil # 6.17 X10^3/uL (2.7-7.7); Neutrophil % 69.8 % (47-70); Platelet Count 194 K/mm3 (150-450); RBC Distribution Width CV 13.3 % (11.6-14.6); RBC Distribution Width SD 45.5 fl (35.1-43.9); Red Blood Count 4.63 M/mm3 (4.2-5.4); White Blood Count 8.8 K/mm3 (4.4-11.0)
[2024-07-17 11:25] LABS: Anion Gap 10 (5-15); BUN 22 mg/dL (4-19); BUN/Creat Ratio 18.9 RATIO (10-20); Calcium,Total 9.2 mg/dL (7.6-11.0); Carbon Dioxide 24.1 mmol/L (21.0-32.0); Chloride 106 mmol/L (98-108); Creatinine, Serum 1.14 mg/dL (0.70-1.20); EST Glomerular Filtration Rate 50 (>60); Glucose 103 mg/dL (70-99); Potassium 4.8 mmol/L (3.3-5.1); Sodium Level 140 mmol/L (133-145)
== END | disposition home or self-care (01) ==
LOC: LAB 10:10
PROVIDERS: PCP Family Medicine; Referring Provider Nurse Practitioner Acute Care; Visit Provider Nurse Practitioner Acute Care
DX: K92.1 Melena (principal)
CPT/HCPCS: 36415; 80048; 85025

== ENCOUNTER → 2024-07-18 | Outpatient (CLI) | payer MEDICARE, SELFPAY ==
[2024-07-18 11:27] LABS: Ionized Calcium Order ORDER TUBE
[2024-07-18 11:32] LABS: PTHIN 65 pg/mL (11-61)
[2024-07-18 12:00] LABS: Ionized Calcium 1.24 mmol/L (1.09-1.30)
== END | disposition home or self-care (01) ==
PROVIDERS: PCP Family Medicine; Referring Provider Family Medicine; Visit Provider Family Medicine
DX: E21.3 Hyperparathyroidism, unspecified (principal)
CPT/HCPCS: 36415; 82330; 83970

== ENCOUNTER → 2024-09-12 | Outpatient (CLI) | payer MEDICARE, SELFPAY ==
--- OUTSIDE RECORDS SUMMARY | 2024-09-12 07:03 | XMS RPT_ITS | CCD ---
Author Organization [facility] CliniSynd Care Team Providers Care Medical Chemist Name Role Phone Nellie Topete Unavailable Unavailable Nellie Topete Unavailable Unavailable SHARON Baltazar, Abigail Christine Unavailable Unavailabl Marta Wiggins Unavailable Unavailable Marta Urrutia Unavailable Unavailable Nellie Topete Unavailable Unavailable Dr. Rui Rea Primary Care Provider Dr. Rui Rea Referring Provider Dr. Reynaldo Thapa Attending Provider [phone] Anu Albright Attending Provider Unavailable [place] HTML WEB DEVELOPER, HTML WEB DEVELOPER-Trudy Hughes Attending Provider [phone] Dr. Reynaldo Thapa Referring Provider GOLDEN Robles Attending Provider Dr. Rui Rea Primary Care Provider Dr. Rui Rea Referring Provider Andrae HTML WEB DEVELOPER, CAROL-Trudy Larsen Attending Provider Anu Albright Attending Provider Unavailable Dr. Rui Rea Primary Care Provider Dr. Rui Rea Referring Provider Dr. Reynaldo Thapa Attending Provider Dr. Reynaldo Thapa Referring Provider Dr. Rui Rea Primary Care Provider Dr. Reynaldo Thapa Attending Provider Dr. Tami Chung Referring Provider Dr. Rui Rea Referring Provider Anu Albright Attending Provider Unavailable Dr. Reynaldo Thapa Referring Provider Dr. Rui Rea Referring Provider Roof HTML WEB DEVELOPER, HTML WEB DEVELOPER-C Sergio Larsen Attending Provider Anu Albright Attending Provider Unavailable Dr. Rui Rea Primary Care Provider Dr. Rui Rea Referring Provider Roof HTML WEB DEVELOPER, HTML WEB DEVELOPER-C Sergio Larsen Attending Provider Anu Albright Attending Provider Unavailable Dr. Reynaldo Thapa Attending Provider Dr. Reynaldo Thapa Referring Provider [phone] Rui Rea Referring Provider Steve HTML WEB DEVELOPER, HTML WEB DEVELOPER-Trudy Hughes Attending Provider Dr. Bria Spencer Primary Care Provider [phone] Anu Albright Attending Provider Unavailable Dr. Reynaldo Thapa Attending Provider [phone] Rui Rea Referring Provider Unavailable Dr. Bria Spencer Primary Care Provider [phone] Dr. Bria Spencer Primary Care Provider [phone] Dr. Reynaldo Thapa Attending Provider [phone] Bria Spencer Referring Provider Dr. Azar Hammonds Attending Provider Dr. Azar Hammonds Referring Provider Dr. Azar Hammonds Other Provider Dr. Azar Hammonds Referring Provider Dr. Bria Spencer Primary Care Provider [phone] Dr. Reynaldo Thapa Attending Provider [phone] Reynaldo Thapa Referring Provider [phone] Bria Spencer Primary Care Provider [phone] Dr. Reynaldo Thapa Attending Provider [phone] Reynaldo Thapa Referring Provider Dr. Bria Spencer Referring Provider Dr. Azar Hammonds Attending Provider Dr. Azar Hammonds Referring Provider Dr. Azar Hammonds Other Provider Dr. Win John Attending Provider Dr. Win John Other Provider Rona HURT, Rui Morgan Primary Care Provider Reynaldo Thapa MD S Unavailable RUI REA Primary Care Unavailable Ita Garcia Attending Unavailable Dr. Bria Spencer MD Primary Care Provider Dr. Bria Spencer MD Attending Provider [phone] Dr. Bria Spencer MD Referring Provider [phone] Win HTML WEB DEVELOPER-CClarisse Attending Provider Dr. Reynaldo Thapa MD Attending Provider Win HTML WEB DEVELOPER-CClarisse Referring Provider Dr. Bria Spencer MD Primary Care Provider Dr. Bria Spencer MD Referring Provider [phone] Dr. Bira Spencer MD Attending Provider [phone] Miedel, Bria Primary Care Unavailable Miedel, Bria Referring Unavailable Miedel, Bria Attending Unavailable Miedel, Bria Primary Care Unavailable Demiter, Estuardo Referring Unavailable Demiter, Estuardo Attending Unavailable Roof HTML WEB DEVELOPER, Sergio H Attending Unavailable Miedel, Bria Primary Care Unavailable Roof HTML WEB DEVELOPER, Sergio H Referring Unavailable Miedel, Bria Primary Care Unavailable Reynaldo Thapa Attending Unavailable Miedel, Bria Primary Care Unavailable Miedel, Bria Referring Unavailable Clarisse Walden Attending Unavailable Roof HTML WEB DEVELOPER, Sergio H Consulting Unavailable Miedel, Bria Primary Care Unavailable Elier, Reynaldo Attending Unavailable Roof Sergio MEDINA Referring Unavailable Mied, Langley Primary Care Unavailable Elier, Barry Attending Unavailable Miedel, Langley Primary Care Unavailable Elier, Reynaldo Attending Unavailable Elier, Barry Referring Unavailable Miedel, Bria Primary Care Unavailable Elier, Reynaldo Attending Unavailable Elier, Barry Referring Unavailable Miedel, Langley Primary Care Unavailable Miedel, Bria Referring Unavailable Win, Clarisse Attending Unavailable Elier, Reynaldo Referring Unavailable Miedel, Bria Primary Care Unavailable Miedel, Bria Referring Unavailable Miedel, Bria Attending Unavailable Miedel, Langley Primary Care Unavailable Win, Clarisse Referring Unavailable Win, Clarisse Attending Unavailable Miedel, Bria Primary Care Unavailable Win, Clarisse Referring Unavailable Win, Clarisse Attending Unavailable Miedel, Langley Primary Care Unavailable Win, Clarisse Attending Unavailable Win, Clarisse Referring Unavailable Allergies Allergy Classification Reported Allergen(s) Allergy Type Date of Onset Reaction(s) Facility (20 sources) codeine; Translations: [CODEINE] drug allergy 07-06-19 12 GI Upset, Vomiting [facility] Work Phone: [phone] (6 sources) dronedarone drug allergy 04-18-19 13 Severe GI intolerance [facility] Work Phone: [phone] (9 sources) loratadine; Translations: [LORATADINE] drug allergy 07-06-19 12 GI Upset, Vomiting [facility] Work Phone: [phone] (12 sources) meloxicam; Translations: [MOBIC] allergy to substance 08-05-19 15 N&V [facility] Work Phone: [phone] (9 sources) methylprednisoLONE; Translations: [METHYLPREDNISOLONE] drug allergy 07-06-19 12 GI Upset, Vomiting [facility] Work Phone: [phone] (12 sources) Penicillins (Antibiotic) drug allergy 04-18-19 13 N&V [facility] Work Phone: [phone] (6 sources) sulfamethoxazole / trimethoprim drug allergy 04-18-19 13 Hives, nausea [facility] Work Phone: (6 sources) CILLINS drug allergy 04-18-19 13 [facility] Work Phone: (20 sources) dronedarone; Translations: [DRONEDARONE] Drug Allergy 05-30-19 18 Unknown [facility] (20 sources) meloxicam; Translations: [MELOXICAM] Drug Allergy 05-30-19 18 Unknown [facility] (20 sources) Nitrofurantoin; Translations: [NITROFURANTOIN] Drug Allergy 01-26-20 20 Unknown [facility] (20 sources) Penicillins; Translations: [PENICILLINS] Allergy to substance 05-30-19 18 Shortness of Breath [facility] (20 sources) Sulfamethoxazole; Translations: [SULFAMETHOXAZOLE] Drug Allergy 07-06-19 12 GI Upset, Vomiting [facility] (20 sources) Trimethoprim; Translations: [TRIMETHOPRIM] Drug Allergy 07-21-19 19 GI Upset [facility] (11 sources) dapagliflozin Drug Allergy 03-08-19 24 Nausea/Vom/Cami rrhea [facility] (11 sources) metFORMIN Drug Allergy 03-08-19 24 PT UNSURE OF REACTION [facility] (7 sources) vibegron; Translations: [vibegron] Allergy to substance 05-16-19 25 Unknown [facility] (1 source) dapagliflozin Drug Allergy 07-18-19 25 [facility] (1 source) dronedarone Drug Allergy 07-18-19 25 [facility] (1 source) meloxicam Drug Allergy 07-18-19 25 [facility] (1 source) metFORMIN Drug Allergy 07-18-19 25 [facility] (1 source) Nitrofurantoin Drug Allergy 07-18-19 25 [facility] (1 source) Sulfamethoxazole Drug Allergy 07-18-19 25 [facility] (1 source) Trimethoprim Drug Allergy 07-18-19 25 [facility] Medications Current Medications Medication Drug Class(es) Dates Sig (Normalized) Sig (Original) bacillus coagulans [id number] unt chewable tablet (4 sources) Start: 07-17-2024 Bacillus Coagulans (Digestive Advantage Prob Gummy) 250 million cell tablet,chewable Active 1 {tbl} PO ONCE July 17, 2024 12:00am cholecalciferol 0.025 mg oral tablet (20 sources) Vitamin D Start: 07-06-2017 take 2 tablets by mouth once daily Cholecalciferol (Vitamin D3) 1,000 unit tablet Active 2000 U PO daily July 06, 2017 12:00am supplement Start: 07-06-2017 take 2000 [IU] by mo ut once daily Cholecalciferol (Vitamin D3) Active 2000 UNIT PO daily July 06, 2017 12:00am Start: 07-06-2017 take 1000 [IU] by mo ut once daily Cholecalciferol (Vitamin D3) Active 1000 UNIT PO daily July 05, 2017 11:00pm Start: 05-19-2014 End: 07-06-2017 Cholecalciferol (Vitamin D3) 5,000 UNIT capsule Discontinued 2000 U PO TWICE A DAY May 19, 2014 12:00am July 06, 2017 12:18pm Start: 05-19-2014 End: 07-06-2017 take 2000 [IU] by mouth twice daily Cholecalciferol (Vitamin D3) Discontinued 2000 UNIT PO TWICE A DAY May 19, 2014 12:00am July 06, 2017 12:18pm take 1 capsule by [facility] once daily Cholecalciferol, Vitamin D3, (VITAMIN D) 1,000 unit cap Take 1,000 Units by mouth once daily. 0 Active citalopram 20 mg oral tablet (20 sources) Serotonin Reuptake Inhibitor Start: 02-09-2021 take 1 tablet by mouth once daily Citalopram 20 mg Tablet Active 20 mg PO DAILY February 09, 2021 1:00am Start: 04-19-2012 End: 12-16-2020 take 1 tablet by mouth once daily Citalopram 20 MG tablet Discontinued 20 mg PO DAILY May 19, 2014 12:00am December 16, 2020 4:11pm antidepressant Start: 04-18-2012 take 1 tablet by william once daily CITALOPRAM HYDROBROMIDE 10 MG TABS One tablet by mouth daily CITALOPRAM HYDROBROMIDE [id number] Yesenia Rodríguez RN clobetasol propionate 0.0005 mg/mg topical ointment (20 sources) Corticosteroid Start: 07-17-2023 Clobetasol 0.0 5 % ointment Active 1 NMA TOPICAL .COMPLEX 15 July 17, 2023 8:49am 1 applic topical daily up to one week for symptoms Small amount and massge in; Start: 05-23-2021 Clobetasol Act dottie 1 APPLIC TOPICAL .COMPLEX 15 May 23, 2021 12:59pm 1 applic topical daily up to one week for symptoms Small amount and massge in; Start: 08-19-2018 End: 01-26-2020 Clobetasol 0.05 % cream Disc ontinued 1 NMA TOPICAL .COMPLEX 15 2 August 19, 2018 12:00am January 26, 2020 9:54am 1 applic TOPICAL apply thin layer as directed bid X 2 weeks then daily X 2 weeks; apply thin layer; massage in to cover area Clobetasol Propi betty 0.05 % lotn Apply to affected area. 0 Active clotrimazole 10 mg/ml topical solution (2 sources) Azole Antifungal Start: 11-16-2020 clotrimazole (LOTRIMIN) 1 % external solution diclofenac sodium 0.01 mg/mg topical gel (2 sources) Nonsteroidal Anti-inflammatory Drug Start: 05-29-2017 apply 2 g topically four times daily diclofenac sodium (VOLTAREN) 1 % topical gel Indications: Sprain of left knee, unspecified ligament, initial encounter Apply 2 g to affected area four times daily. 1 Tube 0 05/29/2017 Active estradiol 0.1 mg/ml vaginal cream (20 sources) Estrogen Start: 07-17-2023 End: 05-14-2024 Estradiol 0.01 % (0.1 mg/gram) cream Active 0 VAGINAL .COMPLEX 42.5 2 May 14, 2024 12:56pm small amount as directed vaginal twice a week; Start: 05-23-2021 Estradiol Acti ve 0 VAGINAL .COMPLEX 42.5 May 23, 2021 12:59pm small amount as directed vaginal twice a week; Start: 09-16-2018 End: 04-22-2019 Estradiol (Estrace) 0.01 % ( 0.1 mg/gram) cream Discontinued 0 VAGINAL .COMPLEX 42.5 2 September 16, 2018 12:00am April 22, 2019 2:23pm pea sized amount VAGINAL every other day X 4 weeks then twice a week; Start: 09-16-2018 End: 04-22-2019 Estradiol (Estrace) 0.01 % ( 0.1 mg/gram) cream Discontinued 0 VAGINAL .COMPLEX 42.5 September 16, 2018 12:00am April 22, 2019 2:23pm pea sized amount VAGINAL every other day X 4 weeks then twice a week; furosemide 40 mg oral tablet (20 sources) Loop Diuretic Start: 08-29-2023 End: 08-29-2023 take 1 tablet by mouth every other day Furosemide 40 mg tablet Active 40 mg PO every other day 90 August 29, 2023 4:51pm Start: 08-09-2021 End: 02-26-2023 Furosemide 40 mg tablet Disc ontinued 40 mg PO .PRN as needed for SOB 90 November 07, 2021 5:07pm February 26, 2023 12:23pm Start: 12-17-2020 End: 08-29-2023 take 1 tablet by mouth once daily as needed Furosemide 40 mg tablet Discontinued 0 .ROUTE .COMPLEX 90 February 26, 2023 12:23pm August 29, 2023 4:45pm TAKE 1 TABLET BY MOUTH EVERY DAY NEEDED FOR SHORTNESS OF BREATH metoprolol tartrate 50 mg oral tablet (20 sources) beta-Adrenergic Donte Start: 01-07-2024 End: 07-17-2024 take 1 tablet by mouth twice daily Metoprolol Tartrate 50 mg tablet Active 50 mg PO TWICE A DAY 180 July 17, 2024 8:56am Start: 04-01-2021 End: 01-07-2024 take 1 tablet by mouth twice daily Metoprolol Tartrate 100 mg tablet Discontinued 100 mg PO TWICE A DAY 180 September 17, 2023 9:35am January 07, 2024 1:59pm Start: 01-24-2021 End: 04-01-2021 take 1 tablet by mouth twice daily Metoprolol Tartrate 50 mg tablet Discontinued 50 mg PO TWICE A DAY 180 February 21, 2021 12:34pm April 01, 2021 6:56pm Start: 09-22-2020 End: 01-24-2021 take 1 tablet by mouth twice daily Metoprolol Tartrate 25 mg tablet Discontinued 25 mg PO TWICE A DAY 180 September 29, 2020 3:44pm December 10, 2020 12:52pm Molnupiravir (1 source) Start: 07-15-2021 take 800 mg by mouth every twelve hours Molnupiravir Active 800 MG PO Q12H 40 5 July 15, 2021 11:39pm omeprazole 40 mg delayed release oral capsule (20 sources) Proton Pump Inhibitor Start: 07-17-2024 take 1 capsule by mouth twice daily Omeprazole 40 mg capsule,delayed release(DR/EC) Active 40 mg PO TWICE A DAY 180 0 July 17, 2024 12:00am Start: 05-15-2024 End: 07-17-2024 take 1 capsule by mouth once daily 30 minutes before breakfast Omeprazole 40 mg capsule,delayed release(DR/EC) Discontinued 40 mg PO daily 90 2 May 15, 2024 12:00am July 17, 2024 10:00am take 30 minutes before breakfast every morning Start: 12-20-2022 End: 05-15-2024 take 1 capsule by mouth once daily Omeprazole 20 mg capsule,delayed release(DR/EC) Discontinued 20 mg PO DAILY December 20, 2022 12:00am May 15, 2024 10:49am Start: 04-18-2012 End: 04-19-2012 take 1 tablet by mouth once daily OMEPRAZOLE 20 MG CPDR One tablet by mouth daily OMEPRAZOLE [id number] Yesenia Rodríguez RN psyllium 400 mg oral capsule (4 sources) Start: 07-17-2024 Psyllium Husk (Metamucil) 0.4 gram capsule Active 0.4 g PO daily July 17, 2024 12:00am rivaroxaban 20 mg oral tablet (20 sources) Factor Xa Inhibitor Start: 01-21-2021 End: 08-13-2024 take 1 tablet by mouth at dinner Rivaroxaban (Xarelto) 20 mg tablet Active 20 mg PO .COMPLEX 90 3 August 13, 2024 1:15pm 20 mg orally: administer with evening meal. This RX is for Clarification of instructions. Thank you. Start: 07-01-2014 End: 01-18-2021 take 1 tablet by mouth at bedtime Rivaroxaban 20 mg tablet Discontinued 20 mg PO AT BEDTIME 90 3 November 16, 2020 3:52pm December 16, 2020 4:11pm blood thinner SITagliptin 25 mg oral tablet (12 sources) Dipeptidyl Peptidase 4 Inhibitor Start: 02-27-2023 take 1 tablet by mouth once daily Sitagliptin Phosphate (Januvia) 25 mg tablet Active 25 mg PO DAILY February 27, 2023 1:00am Completed/Discontinued Medications Medication Drug Class(es) Dates Sig (Normalized) Sig (Original) acetaminophen 325 mg / oxyCODONE hydrochloride 5 mg oral tablet (20 sources) Opioid Agonist Start: 08-21-2023 End: 05-15-2024 Oxycodone-Acetamino phen 5-325 mg tablet Discontinued 1 {tbl} PO EVERY 6 HOURS NEEDED as needed for Pain 12 3 0 August 21, 2023 May 15, 2024 10:27am Abdominal pain Unspecified abdominal pain Start: 06-29-2022 End: 07-12-2022 Oxycodone-Acetaminophen (Per cocet) 5-325 mg tablet Discontinued 1 {tbl} PO Q8H as needed for pain 10 3 June 29, 2022 July 12, 2022 8:26am Calculus of right kidney Calculus of kidney Start: 06-08-2022 take 1 tablet by william th every eight hours Oxycodone-Acetaminophen (Percocet) 5-325 mg tablet Active 1 TABLET PO Q8H 10 3 June 08, 2022 amiodarone hydrochloride 200 mg oral tablet (20 sources) Antiarrhythmic Start: 12-10-2020 End: 12-10-2020 take 1 tablet by mouth once daily Amiodarone 200 mg tablet Discontinued 200 mg PO DAILY 30 3 December 10, 2020 12:00am December 10, 2020 3:40pm On Hold: pharmacy reports anaphylaxis to [facility] Start: 07-23-2014 End: 08-05-2014 take 1 tablet by mouth once daily AMIODARONE HCL 200 MG TABS One tablet by mouth daily AMIODARONE HCL [id number] Reynaldo Thapa MD amoxicillin 875 mg / clavulanate 125 mg oral tablet (9 sources) Penicillin-class Antibacterial Start: 04-04-2023 End: 05-21-2023 Amoxicillin-Pot Clavulanate 875-125 mg tablet Discontinued 1 {tbl} PO TWICE A DAY 14 7 0 April 04, 2023 1:00am May 21, 2023 8:31am Start: 04-04-2023 End: 05-21-2023 take 1 tablet by mouth twice daily Amoxicillin-Pot Clavulanate Discontinued 1 TABLET PO TWICE A DAY 14 April 04, 2023 1:00am May 21, 2023 8:31am aspirin 81 mg oral tablet (18 sources) Nonsteroidal Anti-inflammatory Drug Start: 04-19-2012 End: 08-05-2014 ASPIRIN 81 MG TABS ASPIRIN [id number] Reynaldo Thapa MD Start: 04-19-2012 End: 08-05-2014 ASPIRIN 81 MG TABS 1 ASPIRIN [id number] Reynaldo Thapa MD Start: 04-19-2012 ASPIRIN 81 MG TABS ASPIRIN [id number] Reynaldo Thapa MD Start: 04-19-2012 End: 08-05-2014 ASPIRIN 81 MG TABS 1 ASPIRIN [id number] Reynaldo Thapa MD Start: 04-18-2012 take 1 tablet by william th once daily ASPIRIN 325 MG TABS One tablet by mouth daily ASPIRIN [id number] Yesenia Rodríguez RN betamethasone 0.5 mg/ml / clotrimazole 10 mg/ml topical cream (19 sources) Azole Antifungal, Corticosteroid Start: 07-12-2022 End: 12-20-2022 Clotrimazole-Betamethasone 1-0.05 % cream Discontinued 1 NMA TOPICAL TWICE A DAY 45 14 July 12, 2022 12:00am December 20, 2022 3:00pm Start: 07-12-2022 End: 12-20-2022 Clotrimazole-Betamethasone D iscontinued 1 APPLIC TOPICAL TWICE A DAY 45 July 12, 2022 12:00am December 20, 2022 3:00pm Start: 07-05-2021 Clotrimazole-B etamethasone Active 1 APPLIC TOPICAL TWICE A DAY 45 July 05, 2021 8:53am biotin (5 sources) Start: 06-30-2016 take 1 tablet by william th once daily BIOTIN FORTE TABS One tablet by mouth daily BIOTIN TABS [id number] Reynaldo Thapa MD Start: 06-30-2016 take 1 tablet by william th once daily BIOTIN FORTE TABS One tablet by mouth daily BIOTIN TABS [id number] Reynaldo Thapa MD calcitriol 0.20741 mg oral capsule (11 sources) Vitamin D3 Analog Start: 03-08-2023 End: 06-05-2023 take 1 capsule by mouth once daily Calcitriol 0.25 mcg capsule Discontinued 0.25 ug PO DAILY 30 0 March 08, 2023 1:00am June 05, 2023 1:47pm 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 calcium carbonate 1250 mg / cholecalciferol 200 unt oral tablet (11 sources) Vitamin D Start: 03-08-2023 End: 08-21-2023 Calcium Carbonate-Vitamin D3 500 mg-5 mcg (200 unit) tablet Discontinued 1 {tbl} PO THREE TIMES A DAY 90 0 March 08, 2023 1:00am August 21, 2023 6:47am 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 Start: 03-08-2023 take 1 tablet by [facility] three times daily Calcium Carbonate-Vitamin D3 Active 1 TABLET PO THREE TIMES A DAY 90 March 08, 2023 1:00am cephalexin 500 mg oral capsule (20 sources) Cephalosporin Antibacterial Start: 08-21-2023 End: 05-15-2024 take 1 capsule by mouth three times daily Cephalexin 500 mg capsule Discontinued 500 mg PO THREE TIMES A DAY 15 5 0 August 21, 2023 12:00am May 15, 2024 10:26am Start: 06-29-2022 End: 07-12-2022 take 1 capsule by mouth every twelve hours Cephalexin 500 mg capsule Discontinued 500 mg PO EVERY 12 HOURS 6 3 0 June 29, 2022 12:00am July 12, 2022 8:25am post-operative Start: 06-08-2022 take 500 mg by mouth every twelve hours Cephalexin Active 500 MG PO EVERY 12 HOURS 6 3 June 08, 2022 12:00am diazePAM 5 mg oral tablet (12 sources) Benzodiazepine Start: 04-18-2012 End: 04-16-2014 DIAZEPAM 5 MG TABS As needed DIAZEPAM [id number] Yesenia Rodríguez RN flecainide acetate 150 mg oral tablet (20 sources) Antiarrhythmic Start: 07-05-2021 End: 11-26-2023 take 1 tablet by mouth every twelve hours Flecainide 150 mg tablet Discontinued 150 mg PO Q12H 180 3 May 31, 2023 10:53am November 26, 2023 9:29am Start: 2021 End: 04-01-2021 take 1 tablet by mouth every twelve hours Flecainide 150 mg tablet Discontinued 150 mg PO Q12H 180 3 2021 9:36am April 01, 2021 6:56pm Start: 02-25-2021 End: 2021 take 1 tablet by mouth every twelve hours Flecainide 100 mg tablet Discontinued 100 mg PO Q12H 60 February 25, 2021 1:00am 2021 9:37am Start: 10-24-2018 End: 11-04-2020 take 1 tablet by mouth every twelve hours Flecainide 100 mg tablet Discontinued 0 .ROUTE .COMPLEX 180 3 September 16, 2020 4:47pm November 04, 2020 9:42am TAKE ONE TABLET BY MOUTH EVERY 12 HOURS Start: 12-27-2017 End: 10-24-2018 take 1 tablet by mouth twice daily Flecainide 100 mg tablet Discontinued 100 mg PO TWICE A DAY 60 December 27, 2017 4:04pm October 24, 2018 12:08pm used for afib Start: 12-24-2017 End: 12-27-2017 take 0.5 tablet by mouth twice daily Flecainide Discontinued 50 MG PO TWICE A DAY December 24, 2017 6:00am December 27, 2017 2:37pm 100 mg PO 0.5 tablet (50 mg) twice daily; heart rhythm Start: 11-12-2017 End: 12-27-2017 take 0.5 tablet by mouth twice daily Flecainide 100 mg tablet Discontinued 100 mg PO TWICE A DAY 60 December 27, 2017 2:38pm December 27, 2017 4:04pm 100 mg PO 0.5 tablet (50 mg) twice daily; heart rhythm Start: 09-30-2015 End: 11-12-2017 Flecainide 100 MG tablet Discontinued 50 mg PO TWICE A DAY September 30, 2015 12:00am November 12, 2017 3:12pm Start: 09-30-2015 End: 11-12-2017 take 50 mg by mouth twice daily Flecainide Discontinue d 50 MG PO TWICE A DAY September 30, 2015 12:00am November 12, 2017 3:12pm Start: 08-05-2014 take 1 tablet by william th twice daily FLECAINIDE ACETATE 100 MG TABS One tablet by mouth twice daily FLECAINIDE ACETATE [id number] Reynaldo Thapa MD Start: 08-05-2014 take 0.5 tablet by m out twice daily FLECAINIDE ACETATE 100 MG TABS 1/2 tablet by mouth twice daily FLECAINIDE ACETATE [id number] Yesenia Rodríguez RN fluconazole 150 mg oral tablet (14 sources) Azole Antifungal Start: 09-25-2022 End: 12-20-2022 Fluconazole 150 mg tablet Discontinued 150 mg PO .COMPLEX 2 0 September 25, 2022 12:00am December 20, 2022 3:00pm 150 mg PO take one po now and repeat in 3 days gabapentin 100 mg oral capsule (12 sources) Anti-epileptic Agent Start: 04-18-2012 End: 04-16-2014 take 1 tablet by mouth three times daily for pain NEURONTIN 100 MG CAPS One tablet by mouth three times daily for leg pain GABAPENTIN [id number] Yesenia Rodríguez RN Start: 04-18-2012 End: 04-16-2014 take 1 tablet by mouth three times daily for pain NEURONTIN 100 MG CAPS One tablet by mouth three times daily for leg pain GABAPENTIN [id number] Jazmin Cheng PA-C lansoprazole 30 mg delayed release oral capsule (20 sources) Proton Pump Inhibitor Start: 09-30-2015 End: 07-06-2017 take 1 capsule by mouth once daily Lansoprazole 30 MG capsule Discontinued 30 mg PO DAILY September 30, 2015 12:00am July 06, 2017 12:19pm lidocaine 0.05 mg/mg medicated patch (12 sources) Antiarrhythmic, Amide Local Anesthetic Start: 04-18-2012 End: 07-23-2014 LIDODERM 5 % PTCH remove & reapply daily LIDOCAINE [id number] Yesenia Rodríguez RN Start: 04-18-2012 End: 07-23-2014 LIDODERM 5 % PTCH remove & r eapply daily LIDOCAINE [id number] Abigail Baltazar RN Start: 04-18-2012 LIDODERM 5 % P TCH remove & reapply daily LIDOCAINE [id number] Yesenia Rodríguez RN metroNIDAZOLE 500 mg oral tablet (20 sources) Nitroimidazole Antimicrobial Start: 08-23-2018 End: 12-23-2018 take 1 tablet by mouth twice daily Metronidazole (Flagyl) 500 mg tablet Discontinued 500 mg PO TWICE A DAY 14 0 August 23, 2018 12:00am December 23, 2018 3:53pm Molnupiravir (20 sources) Start: 07-15-2021 End: 08-09-2021 take 1 capsule by mouth every twelve hours Molnupiravir 200 mg capsule Discontinued 800 mg PO Q12H 40 5 0 July 15, 2021 12:00am August 09, 2021 1:40pm Start: 07-15-2021 End: 08-09-2021 take 1 capsule by mouth every twelve hours Molnupiravir 200 mg capsule Discontinued 800 mg PO Q12H 40 July 15, 2021 12:00am August 09, 2021 1:40pm Start: 07-15-2021 End: 08-09-2021 take 800 mg by mouth every twelve hours Molnupiravir Discontinued 800 MG PO Q12H 40 5 July 14, 2021 11:00pm August 09, 2021 12:40pm Start: 07-15-2021 End: 08-09-2021 take 800 mg by mouth every twelve hours Molnupiravir Discontinued 800 MG PO Q12H 40 July 15, 2021 12:00am August 09, 2021 1:40pm MULTIPLE VITAMIN (6 sources) Start: 04-18-2012 take 1 tablet by mouth once daily MULTIVITAMINS TABS One tablet by mouth daily MULTIPLE VITAMIN [id number] Yesenia Rodríguez RN Start: 04-18-2012 End: 04-17-2013 take 1 tablet by mouth once daily MULTIVITAMINS TABS One tablet by mouth daily MULTIPLE VITAMIN [id number] Reynaldo Thapa MD MULTIPLE VITAMIN (6 sources) Start: 04-18-2012 take 1 tablet by mouth once daily MULTIVITAMINS TABS One tablet by mouth daily MULTIPLE VITAMIN [id number] Yesenia Rodríguez RN Start: 04-18-2012 End: 04-17-2013 take 1 tablet by mouth once daily MULTIVITAMINS TABS One tablet by mouth daily MULTIPLE VITAMIN [id number] Reynaldo Thapa MD Start: 04-18-2012 take 1 tablet by william once daily MULTIVITAMINS TABS One tablet by mouth daily MULTIPLE VITAMIN [id number] Yesenia Rodríguez RN Start: 04-18-2012 End: 04-17-2013 take 1 tablet by mouth once daily MULTIVITAMINS TABS One tablet by mouth daily MULTIPLE VITAMIN [id number] Reynaldo Thapa MD nebivolol 5 mg oral tablet (20 sources) Start: 04-18-2012 End: 09-22-2020 take 1 tablet by mouth once daily Nebivolol 5 mg tablet Discontinued 5 mg PO DAILY December 23, 2019 6:19pm September 22, 2020 2:49pm blood pressure ondansetron 4 mg disintegrating oral tablet (20 sources) Serotonin-3 Receptor Antagonist Start: 04-04-2023 End: 08-21-2023 take 1 tablet by mouth every eight hours as needed for nausea and vomiting Ondansetron 4 mg tablet,disintegrat ing Discontinued 4 mg PO Q8H as needed for nausea and vomiting April 04, 2023 1:00am August 21, 2023 6:48am Start: 06-29-2022 End: 07-12-2022 take 1 tablet by mouth every eight hours as needed for nausea Ondansetron Hcl 8 mg tablet Discontinued 8 mg PO EVERY 8 HOURS NEEDED as needed for Nausea 7 June 29, 2022 12:00am July 12, 2022 8:26am phenazopyridine hydrochloride 200 mg oral tablet (20 sources) Start: 06-08-2022 End: 12-20-2022 take 1 tablet by mouth three times daily as needed for muscle spasms Phenazopyridine (Pyridium) 200 mg tablet Discontinued 200 mg PO 3 TIMES DAILY NEEDED as needed for Bladder Spasms 30 7 0 July 12, 2022 8:26am December 20, 2022 3:01pm potassium chloride 10 meq extended release oral capsule (20 sources) Start: 12-17-2020 End: 07-05-2021 take 2 capsules by mouth once daily Potassium Chloride 10 mEq capsule, extended release Discontinued 20 meq PO DAILY 60 January 10, 2021 12:27pm July 05, 2021 8:30am Start: 12-17-2020 End: 07-05-2021 take 20 mEq by mouth once daily Potassium Chloride Discontinued 20 MEQ PO DAILY January 10, 2021 12:27pm July 05, 2021 8:30am promethazine hydrochloride 25 mg oral tablet (20 sources) Phenothiazine Start: 07-15-2021 End: 08-09-2021 take 1 tablet by mouth every six hours as needed for nausea Promethazine 25 mg tablet Discontinued 25 mg PO EVERY 6 HOURS NEEDED as needed for Nausea 10 0 July 15, 2021 12:00am August 09, 2021 1:41pm raNITIdine 150 mg oral tablet (12 sources) Histamine-2 Receptor Antagonist Start: 04-18-2012 End: 04-19-2012 take 1 tablet by mouth twice daily RANITIDINE HCL 150 MG TABS One tablet by mouth twice daily RANITIDINE HCL [id number] Reynaldo Thapa MD sucralfate 1000 mg oral tablet (20 sources) Aluminum Complex Start: 09-30-2015 End: 07-06-2017 take 1 tablet by mouth four times daily Sucralfate 1 GM tablet Discontinued 1 g PO 4 TIMES DAILY September 30, 2015 12:00am July 06, 2017 12:19pm End: 12-28-2015 take 1 tablet by mouth four times daily CARAFATE 1 GM TABS One tablet by mouth four times daily SUCRALFATE [id number] Reynaldo Thapa MD take 1 tablet by william th four times daily CARAFATE 1 GM TABS One tablet by mouth four times daily SUCRALFATE [id number] Sadi Santoyo terconazole 4 mg/ml vaginal cream (20 sources) Azole Antifungal Start: 11-30-2021 End: 12-07-2021 Terconazole 0.4 % cream Discontinued 1 NMA VAGINAL AT BEDTIME 45 7 0 November 30, 2021 12:00am December 06, 2021 12:00am December 07, 2021 12:06am Start: 11-30-2021 End: 12-07-2021 Terconazole Discontinued 1 A PPFUL VAGINAL AT BEDTIME 45 7 November 30, 2021 12:00am December 07, 2021 12:06am traMADol hydrochloride 50 mg oral tablet (12 sources) Opioid Agonist Start: 04-17-2013 End: 04-16-2014 take 1-2 tablets by mouth once daily as needed for pain TRAMADOL HCL 50 MG TABS 1-2 tablets by mouth daily as needed for severe pain TRAMADOL HCL [id number] Jazmin Cheng PA-C Vibegron (15 sources) Start: 08-24-2022 End: 12-20-2022 take 1 tablet by mouth once daily Vibegron (Gemtesa) 75 mg tablet Discontinued 75 mg PO DAILY August 24, 2022 12:00am December 20, 2022 3:00pm Start: 08-24-2022 End: 12-20-2022 take 1 tablet by mouth once daily Vibegron (Gemtesa) 75 mg tablet Discontinued 75 MG PO DAILY August 24, 2022 12:00am December 20, 2022 3:00pm Start: 08-24-2022 End: 12-20-2022 take 1 tablet by mouth once daily Vibegron (Gemtesa) 75 mg tablet Discontinued 75 MG PO DAILY August 23, 2022 11:00pm December 20, 2022 2:00pm Start: 08-24-2022 take 1 tablet by william th once daily Vibegron (Gemtesa) 75 mg tablet Active 75 MG PO DAILY August 24, 2022 12:00am vitamin d 1000 unt oral tablet (18 sources) Start: 04-18-2012 take 5 tablets by mouth once daily, then take 1 tablet by mouth VITAMIN D 1000 UNIT TABS 5000 units One tablet by mouth daily CHOLECALCIFEROL [id number] Yesenia Rodríguez RN Start: 04-18-2012 take 1 tablet by william th once daily VITAMIN D 1000 UNIT TABS One tablet by mouth daily CHOLECALCIFEROL [id number] Reynaldo Thapa MD Start: 04-18-2012 take 1 tablet by william th once daily VITAMIN D 1000 UNIT TABS One tablet by mouth daily CHOLECALCIFEROL [id number] Reynaldo Thapa MD Start: 04-18-2012 take 5 tablets by mo [facility] once daily, then take 1 tablet by mouth VITAMIN D 1000 UNIT TABS 5000 units One tablet by mouth daily CHOLECALCIFEROL [id number] Yesenia Rodríguez RN Problems Active Problems Problem Classification Problem Date Documented Date Episodic/Chronic Abdominal pain (20 sources) Pain in pelvis; Translations: [Pelvic and perineal pain] Episodic Comment on above: US Calculus of urinary tract (20 sources) Kidney stone; Translations: [Calculus of kidney] 06-08-2022 Episodic Cardiac dysrhythmias (20 sources) Paroxysmal atrial fibrillation; Translations: [Atrial fibrillation] Onset: 3 12-10-2015 Chronic Cardiac dysrhythmias (20 sources) Bradycardia; Translations: [Bradycardia, unspecified] Episodic Complications of surgical procedures or medical care (15 sources) Hypoparathyroidism following procedure; Translations: [Postprocedural hypoparathyroidism] 03-08-2023 Chronic Comment on above: Patient with apparen t suppression of PTH by left inferior adenoma. Therefore, she was initiated on calcitriol and calcium carbonate/vitamin D tablets postop. She denies any symptoms of hypocalcemia, but I will look to assess this objectively with postop labs ordered today. My hope is that we can start by eliminating her calcitriol and then serially eliminating her calcium supplementation as well. Conditions associated with dizziness or vertigo (20 sources) Lightheadedness; Translations: [Dizziness and giddiness] 01-04-2021 Episodic Conduction disorders (20 sources) H/O: cardiac pacemaker in situ; Translations: [Presence of cardiac pacemaker] Onset: 1 Chronic Diabetes mellitus with complications (2 sources) Type 2 diabetes mellitus; Translations: [Type 2 diabetes mellitus with other specified complication] Onset: 4 09-05-2023 Chronic Diabetes mellitus without complication (18 sources) Diabetes mellitus; Translations: [Type 2 diabetes mellitus] Onset: 3 Resolved: 3 04-18-2012 Chronic Disorders of lipid metabolism (20 sources) Hyperlipidemia; Translations: [Hyperlipidemia, unspecified] Onset: 3 04-18-2012 Chronic E Codes: Fall (20 sources) Fall on same level from slipping, tripping or stumbling ; Translations: [Fall on same level from slipping, tripping and stumbling without subsequent striking against object, initial encounter] 10-15-2021 Episodic Esophageal disorders (2 sources) Esophageal obstruction; Translations: [Stricture and stenosis of esophagus] Onset: 4 09-05-2023 Chronic Esophageal disorders (6 sources) Achalasia of esophagus; Translations: [Achalasia of cardia] 07-03-2023 Episodic Essential hypertension (20 sources) Hypertensive disorder; Translations: [Essential hypertension] Onset: 3 04-18-2012 Chronic Gastrointestinal hemorrhage (9 sources) Melena; Translations: [Melena] Onset: 5 07-17-2024 Episodic Malaise and fatigue (20 sources) Fatigue; Translations: [Other fatigue] 01-04-2021 Episodic Menopausal disorders (20 sources) Atrophic vaginitis; Translations: [Postmenopausal atrophic vaginitis] 07-05-2021 Chronic Comment on above: estradiol cream Miscellaneous mental health disorders (4 sources) Globus sensation Chronic Mycoses (20 sources) Candidiasis of skin and nail; Translations: [Candidiasis of skin and nails] Episodic Comment on above: lotrisone Rx Nausea and vomiting (20 sources) Nausea and vomiting; Translations: [Nausea with vomiting, unspecified] 07-24-2021 Episodic Noninfectious gastroenteritis (9 sources) Colitis; Translations: [Noninfective gastroenteritis and colitis, unspecified] 04-04-2023 Episodic Nonspecific chest pain (20 sources) Chest pain; Translations: [Chest pain, unspecified] 06-22-2020 Episodic Other aftercare (2 sources) Long-term current use of anticoagulant; Translations: [detention (current) use of anticoagulants] 12-21-2020 Episodic Other endocrine disorders (12 sources) Primary hyperparathyroidism; Translations: [Primary hyperparathyroidism] 12-20-2022 Chronic Comment on above: This is a 77-year-ol d female that is diagnosed with primary hyperparathyroidism after a bout of kidney stones in June 2022. 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 Subsequent PTH and calcium testing showed that patient's calcium is at the higher end of normal with a significantly elevated PTH between 160 and 230. This is occurred in the setting of repleted vitamin D. I held a lengthy discussion with Ms. Healy today regarding first how the diagnosis of hyperparathyroidism is made, the symptoms that may be associated, and then the steps that followed towards localization. I have shared with her the results of both her ultrasound and her sestamibi imaging. I performed my own bedside ultrasound exam and identified 2 potential parathyroid adenomas in the right superior and left inferior positions. The left inferior position would correlate with patient's sestamibi imaging. With this positive localization study I have informed Ms. Shultz that we have both a surgical indication (her prior calcium oxalate kidney stones and evidence of osteopenia with DEXA imaging) and a surgical target. She is interested in proceeding with surgery, however, she shares a concern about family being unavailable to her over the next couple of months and wishes to postpone surgery until February. I have shared with her that we will need to update her H&P after the first of the year and then put her on the schedule. In the meantime we will look to obtain approval to hold her Xarelto 48 hours pre and post procedure.During today's visit patient related that she is now on Januvia and has had recent complaints of some globus sensation which may be due to reflux as well as some new bone pain. I do suspect the latter is related to her hyperparathyroidism. She has had updated labs that suggest a worsening of her PTH elevation but her calcium is actually in the range of normal. This all remains in the setting of a normal vitamin D level. Today I spent time reiterating the diagnosis of primary hyperparathyroidism and that this likely is able to be traced back to a single adenoma. Prior sestamibi imaging suggest that this would localize to the left side, however, in my independent ultrasound imaging identified 2 suspicious hypoechoic structures on the inferior aspect of the bilateral thyroid lobes. Therefore, I do have a suspicion for possible double adenoma. As such I have counseled Mrs. Shultz that she may require 4 gland exploration and a overnight stay. I also discussed with her that this would increase her risk for hypoparathyroidism and shared how the risk would be proportional for nerve injury as well. This discussion was facilitated with the use of hand drawings as well to illustrate the relevant anatomy. At the conclusion of our conversation patient stated that she felt like she had a better understanding of this issue and that it was not as complicated as she had first thought. Is also noted that cardiology has provided clearance to hold anticoagulation 48 hours pre and post surgery. Other endocrine disorders (9 sources) Primary hyperparathyroidism; Translations: [Primary hyperparathyroidism] 12-20-2022 Chronic Other endocrine disorders (1 source) Hyperparathyroidism, unspecified; Translations: [Hyperparathyroidism, unspecified] Onset: 5 Chronic Other gastrointestinal disorders (20 sources) Dysphagia; Translations: [Dysphagia, unspecified] Onset: 6 09-20-2015 Episodic Other gastrointestinal disorders (20 sources) Incontinence of feces; Translations: [Full incontinence of feces] 06-22-2020 Episodic Comment on above: urogyn consult, PFPT consult Other gastrointestinal disorders (3 sources) Dysphagia, unspecified; Translations: [Dysphagia, unspecified] Onset: 5 05-21-2023 Episodic Other gastrointestinal disorders (14 sources) Constipation; Translations: [Constipation, unspecified] Episodic Other gastrointestinal disorders (12 sources) Altered bowel function; Translations: [Change in bowel habit] 05-15-2024 Episodic Other gastrointestinal disorders (6 sources) Finding of pelvis; Translations: [Other ascites] 08-29-2023 Episodic Other lower respiratory disease (20 sources) Dyspnea on exertion; Translations: [Dyspnea, unspecified] 01-04-2021 Episodic Other lower respiratory disease (20 sources) Dyspnea; Translations: [Shortness of breath] 01-04-2021 Episodic Other lower respiratory disease (20 sources) Cough; Translations: [Cough] 01-04-2021 Episodic Other lower respiratory disease (20 sources) Productive cough ; Translations: [Productive cough] 01-04-2021 Episodic Other nutritional; endocrine; and metabolic disorders (12 sources) Body mass index (BMI) 37.0-37.9, adult; Translations: [Body mass index (BMI) 36.0-36.9, adult] Onset: 4 Resolved: 5 04-16-2014 Chronic Other nutritional; endocrine; and metabolic disorders (9 sources) Body mass index (BMI) 36.0-36.9, adult; Translations: [Body mass index (BMI) 35.0-35.9, adult] Onset: 4 Resolved: 5 04-17-2013 Chronic Other nutritional; endocrine; and metabolic disorders (1 source) Severe obesity; Translations: [Morbid (severe) obesity due to excess calories] 09-05-2023 Chronic Other nutritional; endocrine; and metabolic disorders (1 source) Morbid (severe) obesity due to excess calories; Translations: [Class 2 severe obesity with serious comorbidity and body mass index (BMI) of 36.0 to 36.9 in adult, unspecified obesity type (HCC)] Onset: 4 Chronic Other skin disorders (20 sources) Lichen sclerosus et atrophicus; 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 Comment on above: clobetesol Other skin disorders (1 source) Generalized hyperhidrosis; Translations: [Generalized hyperhidrosis] Onset: 5 Episodic Other upper respiratory disease (8 sources) Feeling of lump in throat; Translations: [Globus sensation] 07-17-2024 Episodic Prolapse of female genital organs (20 sources) Cystocele; Translations: [Cystocele, unspecified] 06-22-2020 Chronic Residual codes; unclassified (20 sources) Obstructive sleep apnea syndrome; Translations: [Obstructive sleep apnea (adult) (pediatric)] Onset: 1 07-20-2018 Chronic Comment on above: not compliant with C PAP. Residual codes; unclassified (1 source) Obstructive sleep apnea (adult) (pediatric); Translations: [IRON (obstructive sleep apnea)] Onset: 4 Chronic Residual codes; unclassified (20 sources) FH: Cardiovascular disease; Translations: [Family history of ischemic heart disease and other diseases of the circulatory system] Onset: 1 06-22-2020 Episodic Comment on above: brother of an M I and mother at 69 YOA with CVD Residual codes; unclassified (20 sources) Family history of diabetes mellitus; Translations: [Family history of diabetes mellitus] Onset: 1 06-22-2020 Episodic Comment on above: son hs DM Residual codes; unclassified (10 sources) History of parathyroidectomy; Translations: [Other specified postprocedural states] 03-15-2023 Episodic Comment on above: Patient is a 77-year -old female who presents 1 week after parathyroidectomy (which included excision of both left superior and left inferior glands). Already she is reporting significant improvements in several symptoms that were previously connected to her hyperparathyroidism. I am encouraged by this result. She is also well-healing on exam. I shared with her the results of her pathology that demonstrated an enlarged, but normal parathyroid in the superior position and a hyperplastic and enlarged parathyroid of the inferior position. Wound care instructions were reviewed to include application of triple antibiotic ointment until her scabbing dissipates and then transition to either twice daily application of vitamin E oil or cocoa butter. Residual codes; unclassified (4 sources) Other specified postprocedural states; Translations: [Other postprocedural status] 03-15-2023 Episodic Residual codes; unclassified (2 sources) Other specified personal risk factors, not elsewhere classified; Translations: [Other specified personal history presenting hazards to health] 12-21-2020 Episodic Residual codes; unclassified (6 sources) History of repair of retina for retinal detachment; Translations: [Other specified postprocedural states] 06-22-2020 Episodic Sprains and strains (20 sources) Sprain of ankle; Translations: [Sprain of unspecified ligament of right ankle, initial encounter] 10-15-2021 Episodic Unclassified (8 sources) Altered bowel habits; Translations: [K59.00 - Constipation, unspecified,R19.4 - Change in bowel habit] Unclassified (5 sources) R09.A2 - Foreign body sensation, throat,R05.9 - Cough, unspecified Unclassified (1 source) Foreign body sensation, throat; Translations: [Foreign body sensation, throat] Onset: 5 Unclassified (1 source) Cough, unspecified; Translations: [Cough, unspecified] Onset: 5 Unclassified (2 sources) Other persistent atrial fibrillation; Translations: [Other persistent atrial fibrillation] Onset: 4 Viral infection (20 sources) Disease caused by 2019-nCoV; Translations: [COVID-19] Episodic Past or Other Problems Problem Classification Problem Date Documented Da te Episodic/Chronic Other aftercare (6 sources) detention (current) use of anticoagulants; Translations: [detention (current) use of anticoagulants] Onset: 5 11-18-2014 Episodic Other gastrointestinal disorders (1 source) Constipation, unspecified; Translations: [Constipation, unspecified] Onset: 5 Episodic Other gastrointestinal disorders (1 source) Change in bowel habit; Translations: [Change in bowel habit] Onset: 5 Episodic Other non-traumatic joint disorders (1 source) Pain in right shoulder; Translations: [Pain in right shoulder] Onset: 5 Episodic Other screening for suspected conditions (not mental disorders or infectious disease) (7 sources) Electrocardiogram abnormal; Translations: [Abnormal electrocardiogram [ECG] [EKG]] Onset: 4 08-16-2023 Episodic Residual codes; unclassified (20 sources) History of cardioversion; Translations: [Other specified postprocedural states] Onset: 0 03-30-2021 Episodic Comment on above: 01/15/2018, 04/28/19, 07/21/2019 Unclassified (12 sources) Family history of ischemic heart disease; Translations: [Family history of ischemic heart disease and other diseases of the circulatory system] Onset: 5 Resolved: 5 08-04-2014 Episodic Unclassified (5 sources) Screening for malignant neoplasm of colon ; Translations: [Encounter for screening for malignant neoplasm of colon] Onset: 6 Resolved: 6 09-27-2015 Results Test Name Value Interpretation Reference Range Facility [id number] 07-21-2024 [facility] [place] . [facility] Comment on above: Order Comment: [id number] [facility] Result Comment: Test Ordered: [id number] 25-Hydroxyvitamin D LCMS D2+D3 25-Hydroxy, Vitamin D 35 ng/mL ES Reference Range: . Reference Range: All Ages: Target levels 30 - 100 25-Hydroxy, Vitamin D-2 <1.0 ng/mL ES Reference Range: . This test was developed and its performance characteristics determined by [facility]. It has not been cleared or approved by the Food and Drug Administration. 25-Hydroxy, Vitamin D-3 35 ng/mL ES Reference Range: . This test was developed and its performance characteristics determined by [facility]. It has not been cleared or approved by the Food and Drug Administration. Performed at: ES - [facility] [address] [place] [id number] Machine Shop Lead Man: Justus Hodges MD, Phone: [phone] Performed at: - [facility] [id number] [employer] Shop Lead Man: Onur Marcum PhD, Phone: [phone] Performed By: #### L 509.1000, [id number] ####[facility] [address] [place], [address] [id number] 07-18-2024 Ionized Calcium 1.24 mmol/L Normal 1.09-1.30 [facility] Comment on above: Performed By: #### L 501.2276 #### [facility] [address] [place], [address] PTHINon 07-18-2024 PTH 65 pg/mL High 11-61 [facility] Comment on above: Performed By: #### L 509.1000, [id number] #### [facility] [address] [place], [address] Absolute lymphocyte countOrd ered By: Clarisse Walden on 07-17-2024 Lymphocytes Auto (Unsp spec) [#/Vol] 1.72 10*3/uL 0.83-4.51 [facility] Absolute neutrophil countOrd ered By: Clarisse Walden on 07-17-2024 Neutrophils (Bld) [#/Vol] 6.2 10*3/uL 2.0-7.7 [facility] Anion gap in Serum or Plasma Ordered By: Clarisse Walden on 07-17-2024 Anion gap [Moles/Vol] 10 mmol/L 5-15 [facility] Automated lymphocyte count a s percentage of total leukocytesOrdered By: Clarisse Walden on 07-17-2024 Lymphocytes/100 WBC Auto (Unsp spec) 19.5 % 19-41 [facility] BUN/creatinine ratioOrdered By: Clarisse Walden on 07-17-2024 Urea nitrogen/Creatinine [Mass ratio] 18.9 mg/mg 10-20 [facility] Basic Metabolic Profile (BMP )on 07-17-2024 BUN/CRE 18.9 RATIO Normal - [facility] Comment on above: Performed By: #### L 500.2500, L100.0100 #### [facility] [address] [place], [address] Calcium [Mass/Vol] 9.2 mg/dL Normal 7.6-11.0 [place] Comment on above: Performed By: #### L 500.2500, L100.0100 #### [facility] [address] [place], [address] Chloride [Moles/Vol] 106 mmol/L Normal 98-108 [facility] Comment on above: Performed By: #### L 500.2500, L100.0100 #### [facility] [address] [place], [address] CO2 [Moles/Vol] 24.1 mmol/L Normal 21.0-32.0 [facility] Comment on above: Performed By: #### L 500.2500, L100.0100 #### [facility] [address] [place], [address] Creatinine [Mass/Vol] 1.14 mg/dL Normal 0.70-1.20 [facility] Comment on above: Performed By: #### L 500.2500, L100.0100 #### [facility] [address] [place], [address] GAP 10 Normal 5-15 [facility] Comment on above: Performed By: #### L 500.2500, L100.0100 #### [facility] [address] [place], [address] GFR/1.73 sq M.predicted among non-blacks MDRD (S/P/Bld) [Vol rate/Area] 50 mL/min/{1.73_m2} Low >60 [facility] [facility] Comment on above: Result Comment: mL/m in/1.73m2 CKD-EPI Creatinine Equation (2020) Performed By: #### L 500.2500, L100.0100 #### [facility] [address] [place], [address] Glucose [Mass/Vol] 103 mg/dL High 70-99 [place] Comment on above: Performed By: #### L 500.2500, L100.0100 #### [facility] [address] [place], [address] Potassium [Moles/Vol] 4.8 mmol/L Normal 3.3-5.1 [facility] Comment on above: Result Comment: Hemo lysis present, Results??could be affected. ?? Performed By: #### L 500.2500, L100.0100 #### [facility] [address] [place], [address] Sodium [Moles/Vol] 140 mmol/L Normal 133-145 [place] Comment on above: Performed By: #### L 500.2500, L100.0100 #### [facility] [address] [place], [address] Urea nitrogen [Mass/Vol] 22 mg/dL High 4-19 [facility] Comment on above: Performed By: #### L 500.2500, L100.0100 #### [facility] [address] [place], [address] Basophil percentageOrdered B y: Clarisse Walden on 07-17-2024 Basophils/100 WBC (Bld) 0.6 % 0-1 [facility] CBC W/Diff, Automatedon 06-20 Absolute Lymph 1.72 X10 3/uL Normal 0.83-4.51 [facility] Comment on above: Performed By: #### L 500.2500, L100.0100 #### [facility] [address] [place], [address] Absolute Neut 6.2 X10 3/uL Normal 2.0-7.7 [facility] Comment on above: Performed By: #### L 500.2500, L100.0100 #### [facility] [address] [place], [address] Basophils/100 WBC (Bld) 0.6 % Normal 0-1 [facility] Comment on above: Performed By: #### L 500.2500, L100.0100 #### [facility] [address] [place], [address] Eosinophils/100 WBC (Bld) 1.2 % Normal 0-5 [facility] Comment on above: Performed By: #### L 500.2500, L100.0100 #### [facility] [address] [place], [address] Erythrocyte distribution width (RBC) [Ratio] 13.3 % Normal 11.6-14.6 [facility] Comment on above: Performed By: #### L 500.2500, L100.0100 #### [facility] [address] [place], [address] Hematocrit (Bld) [Volume fraction] 43.1 % Normal 37-47 [facility] Comment on above: Performed By: #### L 500.2500, L100.0100 #### [facility] [address] [place], [address] Hemoglobin (Bld) [Mass/Vol] 14.1 g/dL Normal 12.0-15.0 [facility] Comment on above: Performed By: #### L 500.2500, L100.0100 #### [facility] [address] [place], [address] IG% 0.900 Normal 0.0-0.9 [facility] Comment on above: Result Comment: IG% - Immature Granulocytes (promyelocytes, myelocytes and metamyelocytes) > 1% indicates that a LEFT SHIFT is Present. Performed By: #### L 500.2500, L100.0100 #### [facility] [address] [place], [address] Lymphocytes/100 WBC (Bld) 19.5 % Normal 19-41 [facility] Comment on above: Performed By: #### L 500.2500, L100.0100 #### [facility] [address] [place], [address] MCH (RBC) [Entitic mass] 30.5 pg Normal 27.0-32.0 [facility] Comment on above: Performed By: #### L 500.2500, L100.0100 #### [facility] [address] [place], [address] MCHC (RBC) [Mass/Vol] 32.7 g/dL Normal 32-36 [facility] Comment on above: Performed By: #### L 500.2500, L100.0100 #### [facility] [address] [place], [address] MCV (RBC) [Entitic vol] 93.1 fL Normal 81-99 [facility] Comment on above: Performed By: #### L 500.2500, L100.0100 #### [facility] [address] [place], [address] Monocytes/100 WBC (Bld) 8.0 % Normal 0-10 [facility] Comment on above: Performed By: #### L 500.2500, L100.0100 #### [facility] [address] [place], [address] Neutrophils/100 WBC (Bld) 69.8 % Normal 47-70 [facility] Comment on above: Performed By: #### L 500.2500, L100.0100 #### [facility] [address] [place], [address] Nucleated RBC (Bld) [#/Vol] 0 10*3/uL Normal 0-5 [facility] Comment on above: Performed By: #### L 500.2500, L100.0100 #### [facility] [address] [place], [address] Platelet mean volume (Bld) [Entitic vol] 9.8 fL Normal 6.2-12.0 [facility] Comment on above: Performed By: #### L 500.2500, L100.0100 #### [facility] [address] [place], [address] Platelets (Bld) [#/Vol] 194 10*3/uL Normal 150-450 [facility] Comment on above: Performed By: #### L 500.2500, L100.0100 #### [facility] [address] [place], [address] RBC (Bld) [#/Vol] 4.63 10*6/uL Normal 4.2-5.4 [facility] Comment on above: Performed By: #### L 500.2500, L100.0100 #### [facility] [address] [place], [address] RDW SD 45.5 fl High 35.1-43.9 [facility] Comment on above: Performed By: #### L 500.2500, L100.0100 #### [facility] [address] [place], [address] WBC (Bld) [#/Vol] 8.8 10*3/uL Normal 4.4-11.0 [place] Comment on above: Performed By: #### L 500.2500, L100.0100 #### [facility] [address] [place], [address] Carbon dioxide, total [Moles /volume] in Central venous bloodOrdered By: Clarisse Walden on 07-17-2024 CO2 [Moles/Vol] 24.1 mmol/L 21.0-32.0 [facility] Chloride assayOrdered By: Surjit Walden on 07-17-2024 Chloride [Moles/Vol] 106 mmol/L 98-108 [facility] Eosinophil percentageOrdered By: Clarisse Walden on 07-17-2024 Eosinophils/100 WBC (Bld) 1.2 % 0-5 [facility] Erythrocyte distribution wid th ratioOrdered By: Clarisse Walden on 07-17-2024 Erythrocyte distribution width (RBC) [Ratio] 13.3 % 11.6-14.6 [facility] Erythrocyte distribution wid th standard deviationOrdered By: Clarisse Walden on 07-17-2024 Erythrocyte distribution width (RBC) [Ratio] 45.5 fl High 35.1-43.9 [facility] Gastroenterology Visit Repor ton 07-17-2024 Gastroenterology Visit Report [facility] [address] [place] [address] OFFICE VISIT Date of Service: 07/17/24 MR#: [id number] Acct: [id number] Name: SHIRLEY SHULTZ Rep #: [id number] : 1945 Provider: JALEN foss Age/Sex: 79/F Location: [facility] [place] Status: Signed Intake Vital Signs 05/15/24 10:36 07/17/24 09:39 Height 5 ft 3 in 5 ft 3 in Weight: 196 lb 8 oz BMI 34.8 BP 116/76 Respiration 16 Pulse 66 Pulse Oximetry (%) 97 Oxygen Delivery Method room air Intake Visit Reasons: 6 WK FU Chief Complaint: follow-up Workers Compensation Analyst Required: No Accompanied by: self Is patient in pain?: No Allergies dapagliflozin (From Farxiga) Allergy (Severe, Verified 07/17/24 09:36) Nausea/Vom/Diarrhea dronedarone (From Multaq) Allergy (Severe, Verified 07/17/24 09:36) ANAPHYLAXIS per [facility] [place] code[place] Allergy (Intermediate, Verified 07/17/24 09:36) PT UNSURE OF REACTION meloxicam (From Mobic) Allergy (Intermediate, Verified 07/17/24 09:36) PT UNSURE OF REACTION nitrofurantoin Allergy (Intermediate, Verified 07/17/24 09:36) PT UNSURE OF REACTION Penicillins Allergy (Intermediate, Verified 07/17/24 09:36) PT UNSURE OF REACTION sulfamethoxazole (From Bactrim) Allergy (Intermediate, Verified 07/17/24 09:36) PT UNSURE OF REACTION trimethoprim (From Bactrim) Allergy (Intermediate, Verified 07/17/24 09:36) PT UNSURE OF REACTION vibegron (From Gemtesa) Allergy (Unknown, Verified 07/17/24 09:36) Unknown metformin Adverse Reaction (Verified 07/17/24 09:36) PT UNSURE OF REACTION Medications ???Medication ???Instructions ???Recorded ???Confirmed ???Type cholecalciferol (vitamin D3) 25 2,000 unit PO QDAY supplement 06/1907/17/24 History mcg (1,000 unit) tablet citalopram 20 mg tablet 20 mg PO DAILY 02/09/21 07/17/24 H istory sitagliptin phosphate 25 mg tablet 25 mg PO DAILY 02/27/23 07/17/24 History (Januvia) clobetasol 0.05 % topical ointment 1 applic topical .COMPLEX #15 gr ams 07/17/23 07/17/24 Rx rivaroxaban 20 mg tablet (Xarelto) 20 mg PO QHS #90 tabs 08/27/23 0 07/17/24 Rx furosemide 40 mg tablet 40 mg PO Q OTHER DAY #90 tabs 08/1907/17/24 Rx flecainide 150 mg tablet 150 mg PO Q12H #180 tabs 11/26/23 07/17/24 Rx estradiol 0.01% (0.1 mg/gram) See Rx Instructions vaginal 07/17/24 Rx vaginal cream .COMPLEX #42.5 grams Bacillus coagulans 250 million 1 tab PO ONCE 07/17/24 07/17/24 Hi story cell chewable tablet (Digestive Advantage Probiotic Gummy) metoprolol tartrate 50 mg tablet 50 mg PO BID #180 tabs 07/17/24 Rx omeprazole 40 mg capsule,delayed 40 mg PO BID #180 caps 07/17/24 Rx release psyllium husk 0.4 gram capsule 0.4 g PO QDAY 07/17/24 07/17/24 Hi story (Metamucil) Have you fallen in the past year?: No Nurse's Note: Stool is black [facility] Medical History Right renal stone Cataracts, bilateral Wears glasses Wears dentures History of echocardiogram Ambulates with cane Arthritis History of hiatal hernia History of diverticulitis Non-smoker CPAP (continuous positive airway pressure) dependence Sleep apnea Cardiology follow-up encounter History of stress test History of atrial fibrillation Atrial fibrillation Pacemaker Symptomatic bradycardia Essential (primary) hypertension Fecal incontinence Cystocele with rectocele Atrophic vaginitis Lichen sclerosus Hypokalemia Back problem Dysphagia Depression Anxiety HLD (hyperlipidemia) IRON (obstructive sleep apnea) Family history of diabetes mellitus Family history of cardiovascular disease History of detached retina repair Surgical History History of esophagogastroduodenoscopy (EGD) History of colonoscopy ( 05/2023) Hx of parathyroidectomy History of cystoscopy History of permanent cardiac pacemaker placement (01/17/21) History of cardioversion (07/21/19) History of left heart catheterization (07/29/08) History of cholecystectomy (1977) History of tubal ligation (1981) Family History Father Cancer Prostate cancer Mother Myocardial infarction Arthritis Sister Breast cancer Brother Diabetes CHF (congestive heart failure) Myocardial infarction Son Diabetes Other Family history of cardiovascular disease Family history of diabetes mellitus Social History Smoking Status: Never smoker alcohol intake: never substance use type: does not use caffeine: No what type of physical activity do you participate in: walking frequency: 5-6 times per week seatbelt use: alway (more content not included)... Normal [facility] Glomerular filtration rate ( GFR) estimation/1.73 sq m using serum, plasma, or whole bOrdered By: Clarisse Walden on 07-17-2024 GFR/1.73 sq M.predicted among non-blacks MDRD (S/P/Bld) [Vol rate/Area] 50 mL/min/{1.73_m2} Low >60 [facility] Comment on above: mL/min/1.73m2 CKD-EP I Creatinine Equation (2020) Hematocrit Auto (Bld) [Volum e fraction]Ordered By: Clarisse Walden on 07-17-2024 Hematocrit (Bld) [Volume fraction] 43.1 % 37-47 [facility] Hemoglobin measurementOrdere d By: Clarisse Walden on 07-17-2024 Hemoglobin (Bld) [Mass/Vol] 14.1 g/dL 12.0-15.0 [facility] Immature granulocytes/100 WB C Auto (Bld)Ordered By: Clarisse Walden on 07-17-2024 Immature granulocytes/100 WBC (Bld) 0.900 % 0.0-0.9 [facility] Comment on above: IG% - Immature Granu locytes (promyelocytes, myelocytes and metamyelocytes) > 1% indicates that a LEFT SHIFT is Present. MCV (mean corpuscular volume ) determinationOrdered By: Clarisse Walden on 07-17-2024 MCV (RBC) [Entitic vol] 93.1 fL 81-99 [facility] Mean corpuscular hemoglobin (MCH) determinationOrdered By: Clarisse Walden on 07-17-2024 MCH (RBC) [Entitic mass] 30.5 pg 27.0-32.0 [facility] Mean corpuscular hemoglobin concentration (MCHC) determinationOrdered By: Clarisse Walden on 07-17-2024 MCHC (RBC) [Mass/Vol] 32.7 g/dL 32-36 [facility] Mean platelet volume determi nationOrdered By: Clarisse Walden on 07-17-2024 Platelet mean volume (Bld) [Entitic vol] 9.8 fL 6.2-12.0 [facility] Monocyte percentageOrdered B y: Clarisse Walden on 07-17-2024 Monocytes/100 WBC (Bld) 8.0 % 0-10 [facility] Neutrophil percentageOrdered By: Clarisse Walden on 07-17-2024 Neutrophils/100 WBC (Bld) 69.8 % 47-70 [facility] Nucleated red blood cell per centageOrdered By: Clarisse Walden on 07-17-2024 Nucleated RBC/100 WBC (Bld) [Ratio] 0 % 0-5 [facility] Platelet countOrdered By: Surjit Walden on 07-17-2024 Platelets (Bld) [#/Vol] 194 10*3/uL 150-450 [facility] Potassium measurement (mass/ volume)Ordered By: Clarisse Walden on 07-17-2024 Potassium (Unsp spec) [Mass/Vol] 4.8 mmol/L 3.3-5.1 [facility] Comment on above: Hemolysis present, R esults could be affected. RBC Auto (Bld) [#/Vol]Ordere d By: Clarisse Walden on 07-17-2024 RBC (Bld) [#/Vol] 4.63 10*6/uL 4.2-5.4 [facility] Serum creatinine measurement (mass/volume)Ordered By: Clarisse Walden on 07-17-2024 Creatinine [Mass/Vol] 1.14 mg/dL 0.70-1.20 [facility] Serum glucose measurement (m ass/volume)Ordered By: Clarisse Walden on 07-17-2024 Glucose [Mass/Vol] 103 mg/dL High 70-99 [place] Serum or plasma calcium peyton urement (mass/volume)Ordered By: Clarisse Walden on 07-17-2024 Calcium [Mass/Vol] 9.2 mg/dL 7.6-11.0 [place] Serum or plasma urea nitroge n measurement (mass/volume)Ordered By: Clarisse Walden on 07-17-2024 Urea nitrogen [Mass/Vol] 22 mg/dL High 4-19 [facility] Sodium levelOrdered By: Marcie Walden on 07-17-2024 Sodium [Moles/Vol] 140 mmol/L 133-145 [place] White blood cell (WBC) count Ordered By: Clarisse Walden on 07-17-2024 WBC (Bld) [#/Vol] 8.8 10*3/uL 4.4-11.0 [place] Esophagus Dual Contraston Esophagus Dual Contrast [facility] [address] [place] [address] Esophagus Dual Contrast MR#: [id number] Acct: [id number] Name: SHIRLEY SHULTZ Rep #: [id number] : 1945 F 79 From: Nacho nunes MD PCP: Dr. Bria Spencer MD Status: REG CLI Study: Esophagus Dual Contrast Date of Exam: 07/07/24 Exam# [id number] Ordering Dr: Clarisse Walden HTML WEB DEVELOPERLudy Yates PROCEDURE: ESOPHAGUS DUAL CONTRAST 07/07/2024 REASON FOR EXAM: DYSPHAGIA TECHNIQUE: The patient ingested barium. Fluoroscopic imaging of the esophagus was performed. 1 minute and 14 seconds of fluoroscopy. 30.89 mGy. COMPARISON: None FINDINGS: The patient ingested barium. No evidence of esophageal obstruction. No evidence of gastroesophageal reflux. The patient ingested a 12 mm tablet the barium without difficulty. The patient tolerated the procedure well. RAD/Esophagus Dual Contrast IMPRESSION: Unremarkable air contrast esophagram. Reading Location: [facility]- CC: CAROL-Trudy Walden; Dr. Bria Spencer MD Auto Apprentice Mechanic: Signed Normal [facility] Modified Barium Swallow Stud yon 07-01-2024 Modified Barium Swallow Study [facility] Speech Pathology [address] [place] [address] Modified Barium Swallow Study MR#: [id number] Acct: [id number] Name: SHIRLEY SHULTZ Rep #: [id number] : 1945 79 From: Shital Hernandes M.A. [facility] Modified Barium Swallow Patient Information Study Date: 07/01/24 Study Time: 13:00 Direct Billable Minutes: 94 Total Minutes procedure reportin Diagnosis: Dysphagia R13.10 Referring Physician: Clarisse Walden Reason for Referral: Pt recently attended OP GI office visit 05/15/2024 and reported complaints of dysphagia in her upper esophagus with solid foods and occasional hold-up of liquids. EGD performed 1 year ago was unremarkable. She was recommended for this MBSS, as well as barium esophagram. The patient reports swallowing difficulty for the past 3 years. 1-2X/week she feels as if she has a marble in her throat when swallowing foods or drinks. Coughing or a liquid wash typically clears this sensation. No regurgitation or odynophagia. She initially attributed her difficulty to eating/drinking too fast; however, her difficulty still occurs if shes taking food/drink slowly. Medical History: PMH: Right renal stone, Cataracts bilateral, Wears glasses, Wears dentures, Arthritis, History of hiatal hernia, History of diverticulitis, Non-smoker, Sleep apnea, Hx of A fib, Symptomatic jacquelyn ycardia, HTN, Fecal incontinence, Cystocele with rectocele, Hypokalemia, Dysphagia, Depression, Anxiety, HLD, IRON - See EMR for full PMH. Surgical Hx: History of GGD (2023, WNL), Hx of parathyroidectomy, History of permanent cardiac pacemaker placement (01/17/21). See EMR for full surgical history. Current Diet Ordered: Regular textures / Thin liquids Dentition: Natural Teeth and Upper Dentures Mental Status: WNL Respiratory Status: Oxygenating on Room Air Penetration-Aspiration Scale Penetration-Aspiration Scale: OBJECTIVE ASSESSMENT OF SWALLOW FUNCTION (QUANTITATIVE ??? PER TRIAL): PENETRATION / ASPIRATION SCALE (NUNEZ): 1 = does not enter airway 2 = enters airway/above vocal folds/ejected 3 = enters airway/above vocal folds/not ejected 4 = enters airway/contacts vocal folds/ejected 5 = enters airway/contacts vocal folds/not ejected 6 = enters airway/below vocal folds/ejected 7 = enters airway/below vocal folds/not ejected despite effort 8 = enters airway/below vocal folds/no effort VIDEOFLOROSCOPIC SCALE SCORE (NUNEZ): Grade I = aspiration of material that has penetrated into the laryngeal vestibule, intact cough reflex Grade II = aspiration < 10 % of the bolus, intact cough reflex Grade III = aspiration of < 10 % of the bolus, reduced cough reflex or aspiration of > 10 % of the bolus, intact cough reflex Grade IV = aspiration of > 10 % of the bolus, reduced cough reflex Penetration-Aspiration Scale Score Thin Liquid via teaspoon: Result: 2= enter airway/above vocal folds/ejected Thin Liquid via teaspoon Trial 2: Result: 1= does not enter airway Thin Liquid via large single sip: cup: Result: 1= does not enter airway Thin Liquid via sequential sips: cup: Result: 2= enter airway/above vocal folds/ejected [place] Thick Liquid via large single sip: cup: Result: 2= enter airway/above vocal folds/ejected Pudding via teaspoon: Result: 1= does not enter airway Comment: Esophageal screen - Minimal retention in the UES. Retention of majority of trial in the middle and lower esophagus. Thin Liquid via single sip: straw: Result: 1= does not enter airway Comment: Esophageal screen - Liquid wash mostly cleared retention of previous trial; however, some retrograde flow of liquids through the LES. 1/2 Cookie: Result: 1= does not enter airway Comment: Esophageal screen - Retention of majority of trial in the middle and lower esophagus w/ minimal retrograde flow. Thin Liquid via single sip: straw Trial 2: Result: 1= does not enter airway Comment: Esophageal screen - Liquid wash mostly cleared retention of previous trial; however, some retrograde flow of liquids through the LES. Oral Phase Labial Seal: Interlabial escape, no progression to anterior lip Tongue Control During Bolus Hold: Posterior escape of greater than half of bolus (sequential thin) Bolus Preparation/Mastication: Slow prolonged chewing/mashing with complete recollection Bolus Transport/Lingual Motion: Repetitive/disorganized tongue motion Oral Residue: Residue collection on oral structures Pharyngeal Phase Initiation of Pharyngeal Swallow: Bolus head at posterior laryngeal surgace of epiglottis Soft Palate Elevation: Trace column of contrast/air between soft palate and pharyngeal wall Laryngeal Elevation: Comp. Superior move thyroid cart w/comp. apprx arytenoid cart-epig pet Anterior Hyoid Excursion: Partial anterior movement Epiglottic Movement: Complete inversion Laryngeal Vestibule Closure at Height of Swallow: Incomplete; narrow column o (more content not included)... Normal [facility] Gastroenterology Visit Repor ton 05-15-2024 Gastroenterology Visit Report [facility] Gastroenterology [address] [place] [address] OFFICE VISIT Date of Service: 05/15/24 MR#: [id number] Acct: [id number] Name: SHIRLEY SHULTZ Rep #: [id number] : 1945 Provider: HTML WEB DEVELOPER-C Clarisse A nthony Age/Sex: 79/F Location: [facility] Status: Signed Intake Vital Signs 08/21/23 06:28 05/15/24 10:36 Height 5 ft 3 in 5 ft 3 in Weight: 195 lb 6 oz BMI 34.6 BP 110/72 Respiration 16 Pulse 61 Pulse Oximetry (%) 95 Oxygen Delivery Method room air Intake Visit Reasons: Irregular BM Chief Complaint: Annual Allergies dapagliflozin (From Farxiga) Allergy (Severe, Verified 05/15/24 10:26) Nausea/Vom/Diarrhea dronedarone (From Multaq) Allergy (Severe, Verified 05/15/24 10:26) [facility] [place] [facility] Allergy (Intermediate, Verified 05/15/24 10:26) PT UNSURE OF REACTION meloxicam (From Mobic) Allergy (Intermediate, Verified 05/15/24 10:26) PT UNSURE OF REACTION nitrofurantoin Allergy (Intermediate, Verified 05/15/24 10:26) PT UNSURE OF REACTION Penicillins Allergy (Intermediate, Verified 05/15/24 10:26) PT UNSURE OF REACTION sulfamethoxazole (From Bactrim) Allergy (Intermediate, Verified 05/15/24 10:26) PT UNSURE OF REACTION trimethoprim (From Bactrim) Allergy (Intermediate, Verified 05/15/24 10:26) PT UNSURE OF REACTION vibegron (From Gemtesa) Allergy (Unknown, Verified 05/15/24 10:26) Unknown metformin Adverse Reaction (Verified 05/15/24 10:26) PT UNSURE OF REACTION Medications ???Medication ???Instructions ???Recorded ???Confirmed ???Type cholecalciferol (vitamin D3) 25 2,000 unit PO QDAY supplement 06/1905/15/24 History mcg (1,000 unit) tablet citalopram 20 mg tablet 20 mg PO DAILY 02/09/21 05/15/24 H istory sitagliptin phosphate 25 mg tablet 25 mg PO DAILY 02/27/23 05/15/24 History (Januvia) clobetasol 0.05 % topical ointment 1 applic topical .COMPLEX #15 gr ams 07/17/23 05/15/24 Rx rivaroxaban 20 mg tablet (Xarelto) 20 mg PO QHS #90 tabs 08/27/23 0 05/15/24 Rx furosemide 40 mg tablet 40 mg PO Q OTHER DAY #90 tabs 08/1905/15/24 Rx flecainide 150 mg tablet 150 mg PO Q12H #180 tabs 11/26/23 05/15/24 Rx metoprolol tartrate 50 mg tablet 50 mg PO BID #180 tabs 01/07/24 Rx estradiol 0.01% (0.1 mg/gram) See Rx Instructions vaginal 05/15/24 Rx vaginal cream .COMPLEX #42.5 grams omeprazole 40 mg capsule,delayed 40 mg PO QDAY #90 caps 05/15/24 Rx release Have you fallen in the past year?: No Nurse's Note: Doesn't get the sensation to poop, will sometimes be able to control her bowels but most of the time she can't. Stomach gurgles and feels bloated. Has a hard time swallowing. [facility] Medical History Right renal stone Cataracts, bilateral Wears glasses Wears dentures History of echocardiogram Ambulates with cane Arthritis History of hiatal hernia History of diverticulitis Non-smoker CPAP (continuous positive airway pressure) dependence Sleep apnea Cardiology follow-up encounter History of stress test History of atrial fibrillation Atrial fibrillation Pacemaker Symptomatic bradycardia Essential (primary) hypertension Fecal incontinence Cystocele with rectocele Atrophic vaginitis Lichen sclerosus Hypokalemia Back problem Dysphagia Depression Anxiety HLD (hyperlipidemia) IRON (obstructive sleep apnea) Family history of diabetes mellitus Family history of cardiovascular disease History of detached retina repair Surgical History History of esophagogastroduodenoscopy (EGD) History of colonoscopy ( 05/2023) Hx of parathyroidectomy History of cystoscopy History of permanent cardiac pacemaker placement (01/17/21) History of cardioversion (07/21/19) History of left heart catheterization (07/29/08) History of cholecystectomy (1977) History of tubal ligation (1981) Family History Father Cancer Prostate cancer Mother Myocardial infarction Arthritis Sister Breast cancer Brother Diabetes CHF (congestive heart failure) Myocardial infarction Son Diabetes Other Family history of cardiovascular disease Family history of diabetes mellitus Social History Smoking Status: Never smoker alcohol intake: never substance use type: does not use caffeine: No what type of physical activity do you participate in: walking frequency: 5-6 times per week seatbelt use: always do you feel safe at home: Yes additional social history: - retired HPI HPI Chief Complaint: Annual Details: SHIRLEY AVALOS (more content not included)... Normal [facility] Shoulder min 2 Viewson 03-07 Shoulder min 2 Views [facility] Imaging Services [address] [place], [place] [address] Shoulder min 2 Views MR#: [id number] Acct: [id number] Name: SHIRLEY SHULTZ Rep #: [id number] : 1945 F 78 From: Helder pettit MD PCP: Dr. Bria Spencer MD Status: REG [facility] Study: Shoulder min 2 Views Date of Exam: 03/07/24 Exam# [id number] Ordering Dr: Bria Spencer MD :[id number] STUDY: X-RAY - LEFT SHOULDER REASON FOR EXAM: Female, 78 years old. PAIN TECHNIQUE: 5 view(s) of the shoulder. COMPARISON: None. FINDINGS: Normal glenohumeral articulation. Normal acromioclavicular joint. Normal acromion. Normal humeral head and visualized proximal humerus. The soft tissue structures are unremarkable. There is no demonstrated fracture. Left chest cardiac device and leads are present. Normal visualized pulmonary apex. RAD/Shoulder min 2 Views IMPRESSION: Normal x-ray examination of the shoulder. Electronically Signed: Helder Baumann MD at 10:38 EST Reading Location ID and State: 8 / , Service support , CC: Dr. Bria Spencer MD Auto Apprentice Mechanic: Signed Normal [facility] Shoulder min 2 Views [facility] Imaging Services [address] [place] [address] Shoulder min 2 Views MR#: [id number] Acct: [id number] Name: SHIRLEY SHULTZ Rep #: [id number] : 1945 F 78 From: Helder pettit MD PCP: Dr. Bria Spencer MD Status: REG [facility] Study: Shoulder min 2 Views Date of Exam: 03/07/24 Exam# [id number] Ordering Dr: Bria Spencer MD :[id number] STUDY: X-RAY - RIGHT SHOULDER REASON FOR EXAM: Female, 78 years old. PAIN TECHNIQUE: 4 view(s) of the shoulder. COMPARISON: Chest x-ray dated August 21, 2023. FINDINGS: There is mild degenerative arthrosis of the glenohumeral articulation. Normal acromioclavicular joint. Normal acromion. Normal humeral head and visualized proximal humerus. The soft tissue structures are unremarkable. There is no demonstrated fracture. Normal visualized pulmonary apex. RAD/Shoulder min 2 Views IMPRESSION: Mild shoulder joint narrowing Electronically Signed: Helder Baumann MD at 10:39 EST Reading Location ID and State: [id number] / , Service support , CC: Dr. Bria Spencer MD Auto Apprentice Mechanic: Signed Normal [facility] Echo Complete W/ Contraston 09-10-2023 Echo Complete W/ Contrast [facility] [place] [address] Echo Complete W/ Contrast 09/10/23 0945 MR#: [id number] Acct: [id number] Name: SHIRLEY SHULTZ Rep #: [id number] : 1945 78 From: Reynaldo Thapa MD Attending Dr: Sergio Abebe, HTML WEB DEVELOPER-C Status: REG CLI Ordering Dr: Sergio Abebe HTML WEB DEVELOPER HTML WEB DEVELOPER-C Date: 09/10/23 Location: CVS Sex: F C Admitted: Reason For Study: Abnormal EKG Procedure This was a 2D Doppler, Color Flow transthoracic echocardiogram. Contrast injection was performed. Exam performed in department. Left Ventricle Normal LV size. The left ventricular ejection fraction is 45 %. Apical wall motion abnormality may reflect pacemaker activation. Right Ventricle Normal RV size. Normal systolic function. Atria The left atrium is moderately enlarged. The right atrium is moderately enlarged. Mitral Valve Normal mitral valve. Tricuspid Valve Normal tricuspid valve. Aortic Valve Trisinus/trileaflet aortic valve. Great Vessels Normal aortic root. The pulmonary artery is normal size. Normal inferior vena cava. Pericardium/Pleural No pericardial effusion. Medication 22 gauge I.V. with prn adaptor inserted into left arm. Diluted definity 3ml given slow IV push to enhance endocardial definition. MMode/2D Measurements Calculations LVIDd: 5.2 cm IVSd: 0.67 cm Ao root diam: 3.2 cm LVIDs: 4.2 cm LVPWd: 0.66 cm LA dimension: 4.5 cm RVDd: 3.9 cm FS: 20.0 % LAV(MOD-bp): 85.5 ml LVAd ap4: 33.7 cm2 SV(MOD-sp4): 53.7 ml LAV(MOD-bp) Indexed: 43.6 ml/m2 LVLd ap4: 7.7 cm LAV(MOD-sp2): 74.1 ml EDV(MOD-sp4): 120.7 ml LAV(MOD-sp4): 98.4 ml EDV(sp4-el): 125.8 ml LVAs ap4: 23.4 cm2 LVLs ap4: 6.6 cm ESV(MOD-sp4): 67.0 ml ESV(sp4-el): 70.1 ml EF(MOD-sp4): 44.5 % EF(sp4-el): 44.3 % SV(sp4-el): 55.7 ml LA A4 area: 29.6 cm2 RA A4 area: 31.6 cm2 Doppler Measurements Calculations MV E max richard: 93.0 cm/sec MV V2 max: 100.0 cm/sec Ao V2 max: 146.7 cm/sec MV max P.0 mmHg Ao max P.6 mmHg MV V2 mean: 50.2 cm/sec Ao V2 mean: 112.1 cm/sec MV mean P.3 mmHg Ao mean P.5 mmHg MV V2 VTI: 29.2 cm Ao V2 VTI: 29.2 cm AV (velocity ratio): 0.65 LV V1 max: 96.7 cm/sec MR max richard: 542.0 cm/sec PA V2 max: 73.8 cm/sec LV V1 max P.8 mmHg MR max P.5 mmHg PA max PG (full): 0.35 mmHg LV V1 mean P.5 mmHg MR mean richard: 430.9 cm/sec PA V2 mean: 47.9 cm/sec LV V1 mean: 74.7 cm/sec MR mean P.4 mmHg PA mean PG (full): -0.03 mmHg LV V1 VTI: 19.0 cm MR VTI: 223.4 cm TR max richard: 263.8 cm/sec TR max P.8 mmHg ECHO/Echo Complete W/ Contrast Interpretation Summary Normal LV size. The left ventricular ejection fraction is 45 %. Apical wall motion abnormality may reflect pacemaker activation. The left atrium is moderately enlarged. The right atrium is moderately enlarged. Contrast injection was performed. Ordering Physician: Sergio Abebe Referring Physician: Sergio Abebe Performed By: Beck Rodriguez RCS 09/10/231115 Date Reynaldo Thapa MD CC: JALEN Abebe; Dr. Bria Spencer MD Date Dictated: 09/10/23 0945 Date Transcribed: 09/10/231115 Auto Apprentice Mechanic: Signed Normal [facility] Stress Reporton 09-10-2023 Stress Report [facility] Cardiovascular Services [address] [place], [place] [address] [address] MR#: [id number] Acct: [id number] Name: SHIRLEY SHULTZ Rep #: [id number] : 1945 78 From: Reynaldo Thapa MD Primary Care: Dr. Bria Spencer MD Status: REG CLI Referring Dr: Sergio Abebe NP HTML WEB DEVELOPER-C Sex: F C Stress Test Report Pharmacologic myocardial perfusion stress test. 78-year-old lady with a history of pacemaker implantation Resting EKG demonstrates AV sequential pacing with a left bundle branch block pattern with a rate of 67 bpm. Resting blood pressure is 110/70 mmHg. 0.4 mg of regadenoson was infused per usual protocol followed by rapid intravenous saline flush injection. Continuous EKG monitoring was performed. The maximum heart rate was 82 bpm which was 56% of max impacted heart rate the maximum workload was 1 metabolic equivalent. At rest there were no ST or T wave changes noted to suggest ischemia and at peak infusion nonspecific ST changes were noted which did not meet the criteria for ischemia. No clinical angina is noted. The final blood pressure was 104/60 mmHg. Myocardial perfusion protocol. 13 point mCi of technetium 99m sestamibi was injected at rest. 0.4 mg of regadenoson was infused per usual protocol. At peak infusion 41.9 mCi of technetium 99m sestamibi was injected stress images were obtained stress and rest images were reconstructed and compared in the short axis vertical long and horizontal long axis. Gated images were also obtained. Perfusion SPECT analysis: Review of the stress images demonstrate normal uptake of tracer noted in all areas of the myocardium except for the apex which has an area of reduced perfusion on the stress and resting images. This could be due to permanent pacemaker activity. No ischemia is noted apical infarct cannot be completely excluded Gated SPECT analysis: The gated ejection fraction is 45%. Conclusion: Normal pharmacologic myocardial perfusion stress test with apical perfusion defect. Mildly reduced ejection fraction. 09/10/23 1053 Date Reynaldo Thapa MD CC: HTML WEB DEVELOPER-C Sergio Abebe; Dr. Bria Spencer MD Date Dictated: 09/10/23 105 Date Transcribed: 09/10/23 105 Auto Apprentice Mechanic: CO Signed Normal [facility] CNOVon 09-05-2023 OV Office Visit (AGGENS 4) SHIRLEY SHULTZ ([id number]) 1945 F Date Time Provider Department 09/05/23 2:30 PM ITA GARCIA AGGENS4 During your visit today, we recorded the following information about you: Pulse Blood pressure Weight Height 60/minute 129/82 93.7 kg 1.6 m Ita Garcia MD 09/05/2023 3:23 PM Signed SURGICAL SERVICES HISTORY AND PHYSICAL EXAMINATION SERVICE DATE: 09/05/2023 SERVICE TIME: 2:55 PM PRIMARY CARE PHYSICIAN: Rui Rea MD SUBJECTIVE CHIEF COMPLAINT: difficulty swallowing HISTORY OF PRESENT ILLNESS: Ms. Shultz is a 78 year old female with a PMH of atrial fibrillation and sick sinus syndrome (s/p cardiac pacemaker; Flecainide, Metoprolol, Xarelto), anxiety/depression (celexa), lower extremity swelling (lasix), arthritis, chronic back pain (no meds), cystocele/rectocele, diabetes (Januvia), anxiety (Celexa), GERD, hiatal hernia, IRON (intolerant of CPAP), obesity (increased weight with age; at the age of 62; BMI 36) who presents for surgical evaluation. Surgical consultation was requested by the patient's referring physician, Dr. Win John regarding dysphagia. A copy of this consultation note will be provided to the requesting physician(s) by way of shared medical record or letter via US mail. The patient reports having been told she has a hiatal hernia at the age of 32 and was told to take OTC reflux medications. She has not taken any reflux medications for many years. Starting in 2021 she began to notice increased difficulty with swallowing that occurs intermittently. She endorses intermittent difficulty swallowing once or twice a week and this can happen as infrequently as two weeks out of the month. When these episodes occur she describes a sensation of a marble getting stuck in her throat and requires her drinking a lot of extra fluid. She has lost 20 pounds over the last one year - this weight loss was intentional and she has been dieting and is not related to the sensation of dysphagia. She denies any change in her diet due to these new symptoms - she can tolerate all types of foods although she does cut the food up in small pieces. She denies reflux and regurgitation or emesis or nausea. Of note, she under went EGD which was WNL. She also underwent manometry which demonstrated EGJOO with concern on Dr. John's part for achalasia. Workup: - EGD ([place]; 06/12/23): normal esophagus and normal stomach - Manometry (06/22/23): IRP 22.4; 10% premature contractions; 60% rapid contraction with 100% of swallows intact. DCI within normal limits. EGJOO per Hackett Classification - concerning for possible achalasia Social: denies x3 PSHx: cardiac pacemaker placement (2020), cardioversion, cardiac catheterization, TL, detached retina repair, parathyroidectomy PAST MEDICAL HISTORY: PAST MEDICAL HISTORY Diagnosis Date Ambulates with cane Anticoagulant long-term use indication: stroke prevention atrial fibrillation Anxiety and depression Arthritis At risk for stroke [id number] = 3 (HTN, age, female gender) Atrophic vaginitis Back problem Bradycardia Cystocele with rectocele Cystocele with rectocele Diabetes (HCC) Dysphagia Family history of cardiovascular disease Fecal incontinence Generalized anxiety disorder GERD (gastroesophageal reflux disease) Hiatal hernia History of diverticulitis HTN (hypertension) Hypokalemia Lichen sclerosus Mixed hyperlipidemia IRON on CPAP Persistent atrial fibrillation (HCC) diagnosed about 1997; asymptomatic or minimally symptomatic when ventricular rates are under control; treatment with flecainide failed, recurrent arrhythmia despite flecainide and electrical cardioversion(s) Right renal stone Sick sinus syndrome (HCC) Tachy-eric syndrome (HCC) PAST SURGICAL HISTORY: PAST SURGICAL HISTORY Procedure Laterality Date CARDIAC MONITORING CONTINUOUS 10/2020 30-day cardiac monitoring CARDIAC PACEMAKER PLACEMENT HX 01/17/2021 CARDIOVERSION ELECTIVE ARRHYTHMIA INTERNAL SPX 01/2018 CARDIOVERSION ELECTIVE ARRHYTHMIA INTERNAL SPX 04/2019 CARDIOVERSION ELECTIVE ARRHYTHMIA INTERNAL SPX 07/21/2019 CHOLECYSTECTOMY HX 1978 CYSTOSCOPY ECHOCARDIOGRAM 11/01/2020 EGD W/O BRSH SPEC VARICIES INJ 06/12/2023 Dr. John LEFT HEART CATH,PERCUTANEOUS Left 07/29/2008 LIGATE FALLOPIAN TUBE 1982 MANOMETRY ESOPHAGEAL 06/22/2023 [place] PARATHYROIDECTOMY/EXPLORATIO N PARATHYROIDS REPAIR, DETACHED RETINA, LASER STRESS TEST 2018 FAMILY HISTORY: FAMILY HISTORY Problem Relation Age of Onset Heart Attack Mother Arthritis Mother Angioedema Mother Hypertension Mother other (artthritis) Mother Prostate Cancer Father Breast Cancer Sister Diabetes Brother Heart Failure Brother Heart Attack Brother Prostate Cancer Brother COPD Brother COPD Brother Hypertensi (more content not included)... Normal [facility] CNPNon 09-04-2023 CNPN Telephone (AGGENS4) SHIRLEY SHULTZ ([id number]) 1945 F Date Time Provider Department 09/04/23 ITA GARCIA4 During your visit today, we recorded the following information about you: Dominick Leach 09/04/2023 7:59 AM Signed Reminder call regarding 09/05/2023 new patient appointment. LVM for patient - asked patient to call back to confirm appointment. Unable to My Chart message sent to patient - MyChart not set up. Allergies As of Date: 09/04/2023 Noted Allergy Reaction NITROFURANTOIN 01/26/2020 16 - Unknown TRIMETHOPRIM 07/20/2018 8 - GI Upset BACTRIM (SULFAMETHOXAZOLE) 07/06/2011 8 - GI Upset 11 - Vomiting CODEINE 07/06/2011 8 - GI Upset 11 - Vomiting LORATADINE 07/06/2011 8 - GI Upset 11 - Vomiting METHYLPREDNISOLONE 07/06/2011 8 - GI Upset 11 - Vomiting Comments: Tolerated prednisone in 2020 MOBIC (MELOXICAM) 05/29/2017 16 - Unknown MULTAQ (DRONEDARONE) 05/29/2017 16 - Unknown PENICILLINS 05/29/2017 12 - Shortness of Breath Date Reviewed: 12/21/2020 Reviewed by: Mike Gtz MD - Fully Assessed Reason for Visit: Appointment [186] Prescriptions as of 09/04/2023 - Clobetasol Propionate 0.05 % lotn Apply to affected area. - citalopram (CELEXA) 20 mg tablet Take by mouth once daily. - furosemide (LASIX) 40 mg tablet Take 40 mg by mouth once daily. - clotrimazole (LOTRIMIN) 1 % external solution - potassium chloride SR (MICRO-K) 10 mEq CR capsule Take 20 mEq by mouth once daily. - metoprolol tartrate, short acting, (LOPRESSOR) 25 mg tablet Take 25 mg by mouth twice daily. - Cholecalciferol, Vitamin D3, (VITAMIN D) 1,000 unit cap Take 1,000 Units by mouth once daily. - rivaroxaban (XARELTO) 20 mg tablet Take 20 mg by mouth daily with dinner. - diclofenac sodium (VOLTAREN) 1 % topical gel Apply 2 g to affected area four times daily. Problem List As Of Date 09/04/2023 Noted Resolved Persistent atrial fibrillation (HCC) [I48.19] At risk for stroke [Z91.89] Anticoagulant long-term use [Z79.01] Bradycardia [R00.1] Obstructive sleep apnea syndrome [G47.33] 12/21/2020 Hyperlipidemia [E78.5] 04/18/2012 Family history of diabetes mellitus [Z83.3] 12/21/2020 Family history of cardiovascular disease [Z82.4*12/21/2020 Encounter Status:Closed by DOMINICK LEACH on 09/04/23 [facility] Thin prep Papanicolaou smear with manual screeningOrdered By: Win John on 06-12-2023 Thin prep Papanicolaou smear with manual screening 107 mg/dL 74-106 [facility] Comment on above: MANAGEMENT OF PATIEN T CARE PER NURSING PROTOCOL Absolute lymphocyte countOrd ered By: Ryan Townsend on 04-04-2023 Lymphocytes Auto (Unsp spec) [#/Vol] 1.09 10*3/uL 0.83-4.51 [facility] Automated lymphocyte count a s percentage of total leukocytesOrdered By: Ryan Townsend on 04-04-2023 Lymphocytes/100 WBC Auto (Unsp spec) 11.6 % 19-41 [facility] Basophil percentageOrdered B y: Ryan Townsend on 04-04-2023 Basophil percentage 10-25 SEEN /hpf 0-5 [facility] Lactate [Moles/Vol] 1.5 mmol/L 0.4-2.0 [facility] Basophils/100 WBC (Bld) 0.3 % 0-1 [facility] Bilirubin [Mass/Vol] 1.00 mg/dL 0.20-1.00 [facility] Comment on above: For patients on eltr ombopag therapy, use of Dimension [place] TBIL is not recommended. Chloride [Moles/Vol] 107 mmol/L 98-107 [facility] Eosinophils/100 WBC (Bld) 0.3 % 0-5 [facility] Glucose [Mass/Vol] 163 mg/dL 74-106 [place] Comment on above: Fasting Glucose resu lt greater than or equal to 126 mg/dL suggests DIABETES MELLITUS per A.D.A. criteria. Hemoglobin (Bld) [Mass/Vol] 16.3 g/dL 12.0-15.0 [facility] Monocytes/100 WBC (Bld) 7.1 % 0-10 [facility] Neutrophils (Bld) [#/Vol] 7.5 10*3/uL 2.0-7.7 [facility] Neutrophils/100 WBC (Bld) 80.1 % 47-70 [facility] Potassium [Moles/Vol] 4.2 mmol/L 3.5-5.1 [facility] Protein [Mass/Vol] 7.1 g/dL 6.4-8.2 [place] Sodium [Moles/Vol] 137 mmol/L 136-145 [place] WBC (Bld) [#/Vol] 9.4 10*3/uL 4.4-11.0 [place] Bilirubin Test strip Ql (U)O rdered By: Ryan Townsend on 04-04-2023 Bilirubin Ql (U) Negative Negative [facility] Determination of erythrocyte mean corpuscular volume (MCV)Ordered By: Ryan Townsend on 04-04-2023 MCV (RBC) [Entitic vol] 93.6 fL 81-99 [facility] Direct bilirubinOrdered By: Ryan Townsend on 04-04-2023 Bilirubin.direct [Mass/Vol] 0.28 mg/dL 0.00-0.30 [facility] Erythrocyte distribution wid th ratioOrdered By: Ryan Townsend on 04-04-2023 Erythrocyte distribution width (RBC) [Ratio] 13.2 % 11.6-14.6 [facility] Erythrocyte distribution wid th standard deviationOrdered By: Ryan Townsend on 04-04-2023 Erythrocyte distribution width (RBC) [Entitic vol] 45.3 fL 35.1-43.9 [facility] Hematocrit Auto (Bld) [Volum e fraction]Ordered By: Ryan Townsend on 04-04-2023 Hematocrit (Bld) [Volume fraction] 48.3 % 37-47 [facility] Hyaline casts LM.LPF (Urine sed) [#/Area]Ordered By: Ryan Townsend on 04-04-2023 Hyaline casts (Urine sed) [#/Area] 5 /[LPF] 0-5 [facility] Immature granulocytes/100 WB C Auto (Bld)Ordered By: Ryan Townsend on 04-04-2023 Immature granulocytes/100 WBC (Bld) 0.600 % 0.0-0.9 [facility] Comment on above: IG% - Immature Granu locytes (promyelocytes, myelocytes and metamyelocytes) > 1% indicates that a LEFT SHIFT is Present. Ketones Test strip Ql (U)Ord ered By: Ryan Townsend on 04-04-2023 Ketones Ql (U) Negative Negative [facility] Laboratory - Chemistry and C hemistry - challengeOrdered By: Ryan Townsend on 04-04-2023 ALP [Catalytic activity/Vol] 113 U/L 45-117 [facility] ALT [Catalytic activity/Vol] 62 U/L 13-56 [facility] CO2 [Moles/Vol] 28.0 mmol/L 21.0-32.0 [facility] Globulin (S) [Mass/Vol] 3.2 g/dL 2.2-4.2 [facility] Lipase [Catalytic activity/Vol] 44 U/L 13-75 [facility] Comment on above: Please note:LIPASE r evised reference range effective 22. New Lipase methodology. Expected to produce lower values than the previous assay method. NEW Reference Range: 13 - 75 U/L Urea nitrogen/Creatinine [Mass ratio] 14.6 mg/mg 10-20 [facility] Laboratory - Hematology and Cell countsOrdered By: Ryan Townsend on 04-04-2023 MCH (RBC) [Entitic mass] 31.6 pg 27.0-32.0 [facility] MCHC (RBC) [Mass/Vol] 33.7 g/dL 32-36 [facility] Nucleated RBC/100 WBC (Bld) [Ratio] 0 % 0-5 [facility] Platelet mean volume (Bld) [Entitic vol] 10.7 fL 6.2-12.0 [facility] Platelets (Bld) [#/Vol] 188 10*3/uL 150-450 [facility] Mucus LM Ql (Urine sed)Order ed By: Ryan Townsend on 04-04-2023 Mucus Ql (Urine sed) 0 SEEN /hpf [facility] Nitrite Test strip Ql (U)Ord ered By: Ryan Townsend on 04-04-2023 Nitrite Ql (U) Negative Negative [facility] No Panel InformationOrdered By: Ryan Townsend on 04-04-2023 Urine RBC 0-5 SEEN /hpf 0-5 [facility] Estimated GFR (MDRD) Amer 41 mL/min >60 [facility] Comment on above: GFR Calc Estimated GFR (MDRD) Non-Af Amer 34 mL/min >60 [facility] Comment on above: Non- GFR Calc Troponin I High Sensitivity 16 pg/mL 3.0-54.0 [facility] Comment on above: Please Note: New Elidia t Units and Gender Specific Reference Ranges. For more information see Policy Stat Procedure [place] High Sensitivity Troponin (TNIH) and attachments. Protein Test strip Ql (U)Ord ered By: Ryan Townsend on 04-04-2023 Protein Ql (U) 100 mg/dl Negative [facility] RBC Auto (Bld) [#/Vol]Ordere d By: Ryan Townsend on 04-04-2023 RBC (Bld) [#/Vol] 5.16 10*6/uL 4.2-5.4 [facility] Serum or plasma calcium peyton urement (mass/volume)Ordered By: Ryan Townsend on 04-04-2023 Calcium [Mass/Vol] 8.9 mg/dL 8.5-10.1 [place] Serum or plasma creatinine m easurement (mass/volume)Ordered By: Ryan Townsend on 04-04-2023 Creatinine [Mass/Vol] 1.58 mg/dL 0.55-1.02 [facility] Comment on above: The validity of the calculated GFR & GFRAA in patients over 70 years has not been determined. Clinical correlation is essential. Serum or plasma urea nitroge n measurement (mass/volume)Ordered By: Ryan Townsend on 04-04-2023 Urea nitrogen [Mass/Vol] 23 mg/dL 7-18 [facility] Squamous epithelial cells de tection in urine sediment by light microscopyOrdered By: Ryan Townsend on 04-04-2023 Epithelial cells.squamous LM Ql (Urine sed) 5-10 SEEN /hpf 5-10 [facility] Thin prep Papanicolaou smear with manual screeningOrdered By: Ryan Townsend on 04-04-2023 Thin prep Papanicolaou smear with manual screening 3.9 g/dL 3.2-5.0 [facility] Thin prep Papanicolaou smear with manual screening 34 U/L 15-37 [facility] Thin prep Papanicolaou smear with manual screening 2 5-15 [facility] Urine blood detectionOrdered By: Ryan Townsend on 04-04-2023 RBC Ql (U) 25 /ul Negative [facility] Urine clarityOrdered By: Phil Townsend on 04-04-2023 Clarity (U) Sl. Cloudy Clear [facility] Urine color determinationOrd ered By: Ryan Townsend on 04-04-2023 Color (U) Yellow Yellow [facility] Urine glucose detectionOrder ed By: Ryan Townsend on 04-04-2023 Glucose Ql (U) Normal mg/dl Normal [facility] Urine leukocyte esterase det ection by dipstickOrdered By: Ryan Townsend on 04-04-2023 Leukocyte esterase Test strip Ql (U) 500 /ul Negative [facility] Urine pHOrdered By: Ryan chávez on 04-04-2023 pH (U) 5.0 [pH] 5.0 - 8.0 [facility] Urine sediment bacteria coun t by microscopy (number/high power field)Ordered By: Ryan Townsend on 04-04-2023 Bacteria LM.HPF (Urine sed) [#/Area] 1 /[HPF] None Seen [facility] Urine specific gravity measu rementOrdered By: Ryan Townsend on 04-04-2023 Specific gravity (U) [Rel density] 1.020 1.002-1.03 0 [facility] Urine urobilinogen measureme ntOrdered By: Ryan Townsend on 04-04-2023 Urobilinogen Ql (U) Normal mg/dl Normal [facility] Intact parathyroid hormone ( iPTH) measurementOrdered By: Azar Hammonds on 03-15-2023 Parathyrin.intact (Tissue fine needle aspirate) [Mass/Vol] 66.9 pg/mL 18.4-80.1 [facility] Serum or plasma calcium [place] urement (mass/volume)Ordered By: Azar Hammonds on 03-15-2023 Calcium [Mass/Vol] 9.5 mg/dL 8.5-10.1 [place] Basophil percentageOrdered B y: Ambrose Byers on 03-08-2023 Hemoglobin (Bld) [Mass/Vol] 15.5 g/dL 12.0-15.0 [facility] WBC (Bld) [#/Vol] 7.4 10*3/uL 4.4-11.0 [place] Determination of erythrocyte mean corpuscular volume (MCV)Ordered By: Ambrose Byers on 03-08-2023 MCV (RBC) [Entitic vol] 93.6 fL 81-99 [facility] Erythrocyte distribution wid th ratioOrdered By: Ambrose Byers on 03-08-2023 Erythrocyte distribution width (RBC) [Ratio] 13.0 % 11.6-14.6 [facility] Erythrocyte distribution wid th standard deviationOrdered By: Ambrose Byers on 03-08-2023 Erythrocyte distribution width (RBC) [Entitic vol] 45.1 fL 35.1-43.9 [facility] Hematocrit Auto (Bld) [Volum e fraction]Ordered By: Ambrose Byers on 03-08-2023 Hematocrit (Bld) [Volume fraction] 48.2 % 37-47 [facility] Intact parathyroid hormone ( iPTH) measurementOrdered By: Azar Hammonds on 03-08-2023 Parathyrin.intact (Tissue fine needle aspirate) [Mass/Vol] 10.0 pg/mL 18.4-80.1 [facility] Laboratory - Hematology and Cell countsOrdered By: Ambrose Byers on 03-08-2023 MCH (RBC) [Entitic mass] 30.1 pg 27.0-32.0 [facility] MCHC (RBC) [Mass/Vol] 32.2 g/dL 32-36 [facility] Platelets (Bld) [#/Vol] 174 10*3/uL 150-450 [facility] Platelet mean volume [place] ker (Bld) [Entitic vol]Ordered By: Ambrose Byers on 03-08-2023 Platelet mean volume (Bld) [Entitic vol] 10.3 fL 6.2-12.0 [facility] RBC Auto (Bld) [#/Vol]Ordere d By: Ambrose Byers on 03-08-2023 RBC (Bld) [#/Vol] 5.15 10*6/uL 4.2-5.4 [facility] Thin prep Papanicolaou smear with manual screeningOrdered By: Azar Hammonds on 03-08-2023 Thin prep Papanicolaou smear with manual screening 119 mg/dL 74-106 [facility] Comment on above: MANAGEMENT OF PATIEN T CARE PER NURSING PROTOCOL Basophil percentageOrdered B y: Bria Spencer on 02-20-2023 Bilirubin [Mass/Vol] 0.80 mg/dL 0.20-1.00 [facility] Comment on above: For patients on eltr ombopag therapy, use of Dimension [place] TBIL is not recommended. Chloride [Moles/Vol] 108 mmol/L 98-107 [facility] Glucose [Mass/Vol] 116 mg/dL 74-106 [place] Comment on above: Fasting Glucose resu lt from 100 to 125 mg/dL suggests IMPAIRED HOMEOSTASIS per A.D.A. criteria. Potassium [Moles/Vol] 4.3 mmol/L 3.5-5.1 [facility] Protein [Mass/Vol] 6.7 g/dL 6.4-8.2 [place] Sodium [Moles/Vol] 140 mmol/L 136-145 [place] Laboratory - Chemistry and C hemistry - challengeOrdered By: Bria Spencer on 02-20-2023 ALP [Catalytic activity/Vol] 83 U/L 45-117 [facility] ALT [Catalytic activity/Vol] 19 U/L 13-56 [facility] CO2 [Moles/Vol] 28.0 mmol/L 21.0-32.0 [facility] Globulin (S) [Mass/Vol] 3.1 g/dL 2.2-4.2 [facility] Urea nitrogen/Creatinine [Mass ratio] 14.2 mg/mg 10-20 [facility] No Panel InformationOrdered By: Bria Spencer on 02-20-2023 Ionized Calcium 5.23 mg/dL 4.36-5.20 [facility] Estimated GFR (MDRD) Amer 56 mL/min >60 [facility] Comment on above: GFR Calc Estimated GFR (MDRD) Non-Af Amer 46 mL/min >60 [facility] Comment on above: Non- GFR Calc Parathyroid Hormone (Intact) 211.2 pg/mL 18.4-80.1 [facility] Vitamin D 25-Hydroxy 36.9 ng/mL [facility] Comment on above: Vitamin D 25(OH) Sta tus Range Deficiency <20 ng/mL (50nmol/L) Insufficiency 20 - 30 ng/mL (50 - 75 nmol/L) Sufficiency 30 - 100 ng/mL (75 - 250 nmol/L) Toxicity >100 ng/mL (>250 nmol/L) Serum or plasma albumin [place] urement (mass/volume)Ordered By: Bria Spencer on 02-20-2023 Albumin [Mass/Vol] 3.6 g/dL 3.2-5.0 [place] Serum or plasma albumin/glob ulin mass ratioOrdered By: Bria Spencer on 02-20-2023 Albumin/Globulin [Mass ratio] 1.2 {ratio} 0.9-2.4 [facility] Serum or plasma calcium [place] urement (mass/volume)Ordered By: Briaharjit Spencer on 02-20-2023 Calcium [Mass/Vol] 9.4 mg/dL 8.5-10.1 [place] Serum or plasma creatinine m easurement (mass/volume)Ordered By: Bria Spencer on 02-20-2023 Creatinine [Mass/Vol] 1.20 mg/dL 0.55-1.02 [facility] Comment on above: The validity of the calculated GFR & GFRAA in patients over 70 years has not been determined. Clinical correlation is essential. Serum or plasma urea nitroge n measurement (mass/volume)[facility] Urea nitrogen [Mass/Vol] 17 mg/dL 7-18 [facility] Thin prep Papanicolaou smear with manual screeningOrdered By: [facility] Thin prep Papanicolaou smear with manual screening 15 U/L 15-37 [facility] Thin prep Papanicolaou smear with manual screening 4 5-15 [facility] Basophil percentageOrdered B y: Valerie Garber on 11-08-2022 Bilirubin [Mass/Vol] 1.20 mg/dL 0.20-1.00 [facility] Comment on above: For patients on eltr ombopag therapy, use of Dimension [place] TBIL is not recommended. Chloride [Moles/Vol] 103 mmol/L 98-107 [facility] Glucose [Mass/Vol] 169 mg/dL 74-106 [place] Comment on above: Fasting Glucose resu lt greater than or equal to 126 mg/dL suggests DIABETES MELLITUS per A.D.A. criteria. Potassium [Moles/Vol] 4.8 mmol/L 3.5-5.1 [facility] Protein [Mass/Vol] 7.5 g/dL 6.4-8.2 [place] Sodium [Moles/Vol] 137 mmol/L 136-145 [place] Laboratory - Chemistry and C hemistry - challengeOrdered By: Valerie Garber on 11-08-2022 ALP [Catalytic activity/Vol] 82 U/L 45-117 [facility] ALT [Catalytic activity/Vol] 31 U/L 13-56 [facility] CO2 [Moles/Vol] 29.0 mmol/L 21.0-32.0 [facility] Globulin (S) [Mass/Vol] 3.8 g/dL 2.2-4.2 [facility] Urea nitrogen/Creatinine [Mass ratio] 18.4 mg/mg 10-20 [facility] No Panel InformationOrdered By: Valerie Garber on 11-08-2022 Ionized Calcium 5.56 mg/dL 4.36-5.20 [facility] Estimated GFR (MDRD) Amer 67 mL/min >60 [facility] Comment on above: GFR Calc Estimated GFR (MDRD) Non-Af Amer 55 mL/min >60 [facility] Comment on above: Non- GFR Calc Parathyroid Hormone (Intact) 168.4 pg/mL 18.4-80.1 [facility] Vitamin D 25-Hydroxy 32.1 ng/mL [facility] Comment on above: Vitamin D 25(OH) Sta tus Range Deficiency <20 ng/mL (50nmol/L) Insufficiency 20 - 30 ng/mL (50 - 75 nmol/L) Sufficiency 30 - 100 ng/mL (75 - 250 nmol/L) Toxicity >100 ng/mL (>250 nmol/L) Serum or plasma albumin [place] urement (mass/volume)Ordered By: Valerie Garber on 11-08-2022 Albumin [Mass/Vol] 3.7 g/dL 3.2-5.0 [place] Serum or plasma albumin/glob ulin mass ratioOrdered By: Valerie Garber on 11-08-2022 Albumin/Globulin [Mass ratio] 1.0 {ratio} 0.9-2.4 [facility] Serum or plasma calcium pe[place] urement (mass/volume)Ordered By: Valerie Garber on 11-08-2022 Calcium [Mass/Vol] 10.1 mg/dL 8.5-10.1 [place] Serum or plasma creatinine m easurement (mass/volume)Ordered By: Valerie Garber on 11-08-2022 Creatinine [Mass/Vol] 1.03 mg/dL 0.55-1.02 [facility] Comment on above: The validity of the calculated GFR & GFRAA in patients over 70 years has not been determined. Clinical correlation is essential. Serum or plasma urea nitroge n measurement (mass/volume)Ordered By: Valerie Garber on 11-08-2022 Urea nitrogen [Mass/Vol] 19 mg/dL 7-18 [facility] Thin prep Papanicolaou smear with manual screeningOrdered By: Valerie Garber on 11-08-2022 Thin prep Papanicolaou smear with manual screening 13 U/L 15-37 [facility] Thin prep Papanicolaou smear with manual screening 5 5-15 [facility] Basophil percentageOrdered B y: Valerie Garber on 09-15-2022 Bilirubin [Mass/Vol] 0.50 mg/dL 0.20-1.00 [facility] Comment on above: For patients on eltr ombopag therapy, use of Dimension [place] TBIL is not recommended. Chloride [Moles/Vol] 105 mmol/L 98-107 [facility] Glucose [Mass/Vol] 171 mg/dL 74-106 [place] Comment on above: Fasting Glucose resu lt greater than or equal to 126 mg/dL suggests DIABETES MELLITUS per A.D.A. criteria. Potassium [Moles/Vol] 4.5 mmol/L 3.5-5.1 [facility] Protein [Mass/Vol] 7.2 g/dL 6.4-8.2 [place] Sodium [Moles/Vol] 139 mmol/L 136-145 [place] Laboratory - Chemistry and C hemistry - challengeOrdered By: Valerie Garber on 09-15-2022 ALP [Catalytic activity/Vol] 90 U/L 45-117 [facility] ALT [Catalytic activity/Vol] 21 U/L 13-56 [facility] CO2 [Moles/Vol] 29.0 mmol/L 21.0-32.0 [facility] Globulin (S) [Mass/Vol] 3.6 g/dL 2.2-4.2 [facility] Urea nitrogen/Creatinine [Mass ratio] 13.7 mg/mg 10-20 [facility] No Panel InformationOrdered By: Valerie Garber on 09-15-2022 Estimated GFR (MDRD) Amer 58 mL/min >60 [facility] Comment on above: GFR Calc Estimated GFR (MDRD) Non-Af Amer 48 mL/min >60 [facility] Comment on above: Non- GFR Calc Ionized Calcium TNP [facility] Comment on above: Test not performedSP ECIMEN NOT COLLECTED PROPERLY OR ORDERED CORRECTLY Miscellaneous Test See comment [facility] Comment on above: TEST RESULT LIMITSPT HrP (PTH-Related Peptide) <2.0 pmol/LThis test was developed and its performance characteristicsdetermined by [employer]. It has not been cleared or approvedby the Food and Drug Administration.Reference Range:All Ages: <2.0The PTHrP assay should not be used to exclude cancer orscreen tumor patients for humoral hypercalcemia ofmalignancy (HHM). The results should always be assessed inconjunction with the patient's medical history, clinicalexamination, and other findings. If test results areclinically discordant, please contact the laboratory. TESTING PERFORMED AT [facility]. ORIGINAL REPORT ON FILE IN LAB CONTAINS ADDITIONAL TEST SITE INFORMATION. Parathyroid Hormone (Intact) 232.9 pg/mL 18.4-80.1 [facility] Vitamin D 25-Hydroxy 18.4 ng/mL [facility] Comment on above: Vitamin D 25(OH) Sta tus Range Deficiency <20 ng/mL (50nmol/L) Insufficiency 20 - 30 ng/mL (50 - 75 nmol/L) Sufficiency 30 - 100 ng/mL (75 - 250 nmol/L) Toxicity >100 ng/mL (>250 nmol/L) Serum or plasma albumin [place] urement (mass/volume)Ordered By: Valerie Garber on 09-15-2022 Albumin [Mass/Vol] 3.6 g/dL 3.2-5.0 [place] Serum or plasma albumin/glob ulin mass ratioOrdered By: Valerie Garber on 09-15-2022 Albumin/Globulin [Mass ratio] 1.0 {ratio} 0.9-2.4 [facility] Serum or plasma calcitriol m easurement (mass/volume)Ordered By: Valerie Garber on 09-15-2022 1,25-dihydroxyvitamin D3 [Mass/Vol] 55.9 pg/mL 24.8-81.5 [facility] Comment on above: Performed at: [employer] [facility] [employer] [address] [id number] Director: Ana Soto MD, Phone: [phone] Serum or plasma calcium pe[place] urement (mass/volume)Ordered By: Valerie Garber on 09-15-2022 Calcium [Mass/Vol] 9.8 mg/dL 8.5-10.1 [place] Serum or plasma creatinine m easurement (mass/volume)Ordered By: Valerie Garber on 09-15-2022 Creatinine [Mass/Vol] 1.17 mg/dL 0.55-1.02 [facility] Comment on above: The validity of the calculated GFR & GFRAA in patients over 70 years has not been determined. Clinical correlation is essential. Serum or plasma urea nitroge n measurement (mass/volume)Ordered By: Valerie Garber on 09-15-2022 Urea nitrogen [Mass/Vol] 16 mg/dL 7-18 [facility] Thin prep Papanicolaou smear with manual screeningOrdered By: Valerie Garber on 09-15-2022 Thin prep Papanicolaou smear with manual screening 13 U/L 15-37 [facility] Thin prep Papanicolaou smear with manual screening 5 5-15 [facility] Serum or plasma calcium [place] urement (mass/volume)Ordered By: Ninfa Mejia on 08-18-2022 Calcium [Mass/Vol] 10.3 mg/dL 8.5-10.1 [place] Color of specimen determinat ionOrdered By: Ninfa Mejia on 06-29-2022 Color (Unsp spec) Not Reportable [facility] Measurement of weight of sto neOrdered By: Ninfa Mejia on 06-29-2022 Weight (Stone) Not Reportable [place] Origin of StoneOrdered By: Chava Mejia on 06-29-2022 Origin Nom (Stone) See comment [facility] Comment on above: TEST RESULT LIMITSSt one Analysis Source Not provided Color Brown Size 2x2 mm Multiple pieces received. Dimensions of the largest piece reported. Weight 3.0 mg Composition Percentage (Represents the % composition) Calcium Oxalate Monohydrate 5 % Calcium Oxalate Dihydrate 90 % Calcium phosphate (hydroxyl) 5 %Comment Calcium phosphate (hydroxyl form) includes hydroxyapatite,amorphous calcium phosphate, and whitlockite. Hydroxyapatiteis the most common of the calcium phosphate salts found inhuman kidney stones.PhotoPhotograph will follow under a separate coverComment: Physician questions regarding [facility]cul[facility] Analysis [facility] at: [phone].Please note: Calculi report will follow via computer, mail or courierdelivery.Disclaimer: This test was developed and its performance characteristicsdetermined by [employer]. It has not been cleared or approvedby the Food and Drug Administration. TESTING PERFORMED AT [facility]. ORIGINAL REPORT ON FILE IN LAB CONTAINS ADDITIONAL TEST SITE INFORMATION. Size of stoneOrdered By: Rosa Mejia on 06-29-2022 Size (Stone) [Entitic vol] Not Reportable [facility] Basophil percentageOrdered B y: Dr. Mejia on 06-09-2022 Chloride [Moles/Vol] 108 mmol/L 98-107 [facility] Glucose [Mass/Vol] 130 mg/dL 74-106 [place] Comment on above: Fasting Glucose resu lt greater than or equal to 126 mg/dL suggests DIABETES MELLITUS per A.D.A. criteria. Potassium [Moles/Vol] 4.1 mmol/L 3.5-5.1 [facility] Sodium [Moles/Vol] 137 mmol/L 136-145 [place] WBC (Bld) [#/Vol] 11.0 10*3/uL 4.4-11.0 [facility] Blood erythrocytes count (nu mber/volume)Ordered By: Dr. Mejia on 06-09-2022 RBC (Bld) [#/Vol] 4.74 10*6/uL 4.2-5.4 [facility] Blood hemoglobin measurement (mass/volume)Ordered By: Dr. Mejia on 06-09-2022 Hemoglobin (Bld) [Mass/Vol] 14.3 g/dL 12.0-15.0 [facility] Blood platelet mean volumeOr dered By: Dr. Mejia on 06-09-2022 Platelet mean volume (Bld) [Entitic vol] 10.4 fL 6.2-12.0 [facility] Determination of erythrocyte mean corpuscular volume (MCV)Ordered By: Dr. Mejia on 06-09-2022 MCV (RBC) [Entitic vol] 92.0 fL 81-99 [facility] Hematocrit Auto (Bld) [Volum e fraction]Ordered By: Dr. Mejia on 06-09-2022 Hematocrit (Bld) [Volume fraction] 43.6 % 37-47 [facility] Laboratory - Chemistry and C hemistry - challengeOrdered By: Dr. Mejia on 06-09-2022 CO2 [Moles/Vol] 25.0 mmol/L 21.0-32.0 [facility] Urea nitrogen/Creatinine [Mass ratio] 17.2 mg/mg 10-20 [facility] Laboratory - Hematology and Cell countsOrdered By: Dr. Mejia on 06-09-2022 Erythrocyte distribution width (RBC) [Entitic vol] 45.9 fL 35.1-43.9 [facility] Erythrocyte distribution width (RBC) [Ratio] 13.4 % 11.6-14.6 [facility] MCH (RBC) [Entitic mass] 30.2 pg 27.0-32.0 [facility] Auto (RBC) [Mass/Vol]Or dered By: Dr. Mejia on 06-09-2022 MCHC (RBC) [Mass/Vol] 32.8 g/dL 32-36 [facility] No Panel InformationOrdered By: Dr. Mejia on 06-09-2022 Estimated GFR (MDRD) Amer 55 mL/min >60 [facility] Comment on above: GFR Calc Estimated GFR (MDRD) Non-Af Amer 46 mL/min >60 [facility] Comment on above: Non- GFR Calc Platelets bldOrdered By: Dr. Mejia on 06-09-2022 Platelets (Bld) [#/Vol] 173 10*3/uL 150-450 [facility] Serum or plasma calcium pey[place] urement (mass/volume)Ordered By: Dr. Mejia on 06-09-2022 Calcium [Mass/Vol] 9.8 mg/dL 8.5-10.1 [place] Serum or plasma creatinine m easurement (mass/volume)Ordered By: Dr. Mejia on 06-09-2022 Creatinine [Mass/Vol] 1.22 mg/dL 0.55-1.02 [facility] Comment on above: The validity of the calculated GFR & GFRAA in patients over 70 years has not been determined. Clinical correlation is essential. Serum or plasma urea nitroge n measurement (mass/volume)Ordered By: Dr. Mejia on 06-09-2022 Urea nitrogen [Mass/Vol] 21 mg/dL 7-18 [facility] Thin prep Papanicolaou smear with manual screeningOrdered By: Dr. Mejia on 06-09-2022 Thin prep Papanicolaou smear with manual screening 4 5-15 [facility] Cytology report of Body flui d Cyto stainOrdered By: Dr. Mejia on 06-08-2022 Cytology report Cyto stain Doc (Body fld) SEE PATHOLOGY REPORT [place] Comment on above: Specimen submitted t o Anatomical Pathology Department for testing. Basophil percentageOrdered B y: Dr. Mejia on 02-21-2022 Chloride [Moles/Vol] 104 mmol/L 98-107 [facility] Glucose [Mass/Vol] 148 mg/dL 74-106 [place] Comment on above: Fasting Glucose resu lt greater than or equal to 126 mg/dL suggests DIABETES MELLITUS per A.D.A. criteria. Potassium [Moles/Vol] 4.4 mmol/L 3.5-5.1 [facility] Sodium [Moles/Vol] 138 mmol/L 136-145 [place] Cytology report of Body flui d Cyto stainOrdered By: Dr. Mejia on 02-21-2022 Cytology report Cyto stain Doc (Body fld) SEE PATHOLOGY REPORT [place] Comment on above: Specimen submitted t o Anatomical Pathology Department for testing. Laboratory - Chemistry and C hemistry - challengeOrdered By: Dr. Mejia on 02-21-2022 CO2 [Moles/Vol] 29.0 mmol/L 21.0-32.0 [facility] Urea nitrogen/Creatinine [Mass ratio] 14.5 mg/mg 10-20 [facility] No Panel InformationOrdered By: Dr. Mejia on 02-21-2022 Estimated GFR (MDRD) Amer 54 mL/min >60 [facility] Comment on above: GFR Calc Estimated GFR (MDRD) Non-Af Amer 45 mL/min >60 [facility] Comment on above: Non- GFR Calc Serum or plasma calcium pe[place] urement (mass/volume)Ordered By: Dr. Mejia on 02-21-2022 Calcium [Mass/Vol] 9.8 mg/dL 8.5-10.1 [place] Serum or plasma creatinine m easurement (mass/volume)Ordered By: Dr. Mejia on 02-21-2022 Creatinine [Mass/Vol] 1.24 mg/dL 0.55-1.02 [facility] Comment on above: The validity of the calculated GFR & GFRAA in patients over 70 years has not been determined. Clinical correlation is essential. Serum or plasma urea nitroge n measurement (mass/volume)Ordered By: Dr. Mejia on 02-21-2022 Urea nitrogen [Mass/Vol] 18 mg/dL 7-18 [facility] Thin prep Papanicolaou smear with manual screeningOrdered By: Dr. Mejia on 02-21-2022 Thin prep Papanicolaou smear with manual screening 5 5-15 [facility] Culture, urineOrdered By: Dr Jayson Spencer on 01-22-2022 Bacteria identified Cx Nom (U) Positive [facility] Absolute lymphocyte counton 07-15-2021 Lymphocytes Auto (Unsp spec) [#/Vol] 0.72 10*3/uL 0.83-4.51 [facility] Work Phone: [phone] Basophil percentageon 2021 Basophils/100 WBC (Bld) 0.3 % 0-1 [facility] Work Phone: [phone] Bilirubin [Mass/Vol] 0.70 mg/dL 0.20-1.00 [facility] Work Phone: [phone] Comment on above: For patients on eltr ombopag therapy, use of Dimension [place] TBIL is not recommended. Chloride [Moles/Vol] 109 mmol/L 98-107 [facility] Work Phone: [phone] Eosinophils/100 WBC (Bld) 0.5 % 0-5 [facility] Work Phone: [phone] Glucose [Mass/Vol] 156 mg/dL 74-106 [place] Work Phone: [phone] Comment on above: Fasting Glucose resu lt greater than or equal to 126 mg/dL suggests DIABETES MELLITUS per A.D.A. criteria. Neutrophils (Bld) [#/Vol] 6.0 10*3/uL 2.0-7.7 [facility] Work Phone: [phone] Neutrophils/100 WBC (Bld) 80.3 % 47-70 [facility] Work Phone: [phone] Potassium [Moles/Vol] 4.3 mmol/L 3.5-5.1 [facility] Work Phone: [phone] Comment on above: Slight Hemolysis, Re sult may be falsely increased. Protein [Mass/Vol] 6.7 g/dL 6.4-8.2 [place] Work Phone: [phone] Sodium [Moles/Vol] 137 mmol/L 136-145 [place] Work Phone: [phone] WBC (Bld) [#/Vol] 7.5 10*3/uL 4.4-11.0 [place] Work Phone: Blood erythrocytes count (nu mber/volume)on 07-15-2021 RBC (Bld) [#/Vol] 4.47 10*6/uL 4.2-5.4 [facility] Work Phone: [phone] Blood hemoglobin measurement (mass/volume)on 07-15-2021 Hemoglobin (Bld) [Mass/Vol] 13.3 g/dL 12.0-15.0 [facility] Work Phone: Blood lymphocytes/100 leukoc yteson 07-15-2021 Lymphocytes/100 WBC (Bld) 9.6 % 19-41 [facility] Work Phone: Blood monocytes/100 leukocyt eson 07-15-2021 Monocytes/100 WBC (Bld) 8.8 % 0-10 [facility] Work Phone: Blood platelet mean volumeon 07-15-2021 Platelet mean volume (Bld) [Entitic vol] 11.2 fL 6.2-12.0 [facility] Work Phone: [phone] Determination of erythrocyte mean corpuscular volume (MCV)on 07-15-2021 MCV (RBC) [Entitic vol] 90.4 fL 81-99 [facility] Work Phone: Hematocrit Auto (Bld) [Volum e fraction]on 07-15-2021 Hematocrit (Bld) [Volume fraction] 40.4 % 37-47 [facility] Work Phone: [phone] Laboratory - Chemistry and C hemistry - challengeon 07-15-2021 ALP [Catalytic activity/Vol] 94 U/L 45-117 [facility] Work Phone: ALT [Catalytic activity/Vol] 54 U/L 13-56 [facility] Work Phone: CO2 [Moles/Vol] 22.0 mmol/L 21.0-32.0 [facility] Work Phone: [phone] Globulin (S) [Mass/Vol] 3.4 g/dL 2.2-4.2 [facility] Work Phone: Lipase [Catalytic activity/Vol] 71 U/L 73-393 [facility] Work Phone: Urea nitrogen/Creatinine [Mass ratio] 11.6 mg/mg 10-20 [facility] Work Phone: Laboratory - Hematology and Cell countson 07-15-2021 Erythrocyte distribution width (RBC) [Entitic vol] 44.2 fL 35.1-43.9 [facility] Work Phone: Erythrocyte distribution width (RBC) [Ratio] 13.5 % 11.6-14.6 [facility] Work Phone: Immature granulocytes/100 WBC (Bld) 0.500 % 0.0-0.9 [facility] Work Phone: Comment on above: IG% - Immature Granu locytes (promyelocytes, myelocytes and metamyelocytes) > 1% indicates that a LEFT SHIFT is Present. MCH (RBC) [Entitic mass] 29.8 pg 27.0-32.0 [facility] Work Phone: Nucleated RBC/100 WBC (Bld) [Ratio] 0 % 0-5 [facility] Work Phone: Laboratory - Microbiology an d Antimicrobial susceptibilityon 07-15-2021 SARS-CoV-2 (COVID-19) RNA MICHAEL+probe Ql (Unsp spec) Detected [facility] Work Phone: MCHC Auto (RBC) [Mass/Vol]on 07-15-2021 MCHC (RBC) [Mass/Vol] 32.9 g/dL 32-36 [facility] Work Phone: No Panel Informationon 07-15 Estimated Creatinine Clearance Calc 38.05 ml/min [facility] Work Phone: Estimated GFR (MDRD) Amer 61 mL/min >60 [facility] Work Phone: Comment on above: GFR Calc Estimated GFR (MDRD) Non-Af Amer 51 mL/min >60 [facility] Work Phone: Comment on above: Non- GFR Calc Influenza Types A,B Rapid (Clinic) Not detected [facility] Work Phone: Platelets bldon 07-15-2021 Platelets (Bld) [#/Vol] 141 10*3/uL 150-450 [facility] Work Phone: Serum or plasma albumin pey[place] urement (mass/volume)on 07-15-2021 Albumin [Mass/Vol] 3.3 g/dL 3.2-5.0 [place] Work Phone: Serum or plasma albumin/glob ulin mass ratioon 07-15-2021 Albumin/Globulin [Mass ratio] 1.0 {ratio} 0.9-2.4 [facility] Work Phone: Serum or plasma calcium [place] urement (mass/volume)on 07-15-2021 Calcium [Mass/Vol] 9.2 mg/dL 8.5-10.1 [place] Work Phone: Serum or plasma creatinine m easurement (mass/volume)on 07-15-2021 Creatinine [Mass/Vol] 1.12 mg/dL 0.55-1.02 [facility] Work Phone: Comment on above: The validity of the calculated GFR & GFRAA in patients over 70 years has not been determined. Clinical correlation is essential. Serum or plasma urea nitroge n measurement (mass/volume)on 07-15-2021 Urea nitrogen [Mass/Vol] 13 mg/dL 7-18 [facility] Work Phone: Thin prep Papanicolaou smear with manual screeningon 07-15-2021 Thin prep Papanicolaou smear with manual screening 38 U/L 15-37 [facility] Work Phone: Comment on above: Slight Hemolysis, Re sult may be falsely increased. Thin prep Papanicolaou smear with manual screening 6 5-15 [facility] Work Phone: CNOVon 11-16-2020 CNOV Office Visit (WSTR ) SHIRLEY SHULTZ ([id number]) 1945 F Date Time Provider Department 11/16/20 10:45 AM JOHANA KNIGHT During your visit today, we recorded the following information about you: Temperature Pulse Respiration Blood pressure 98.5 degrees 86/minute 16/minute 132/76 Weight 96.6 kg Johana Knight APRN.CNP 11/16/2020 11:43 AM Signed ASSESSMENT/PLAN: 1. Cellulitis of left upper extremity [...] T63.444A - PREDNISONE 10 MG TABLET - Follow-up with your PCP in 3-5 days if symptoms have not improved or sooner if symptoms worsen - Discussed red flags and need for immediate medical evaluation if any occur. - Discussed supportive care treatment with fluids, rest and analgesia. - Discussed expected course of illness Johana Knight APRN.HEALTH AND SAFETY CONSULTANT [facility] PATIENT INFO BEE AND INSECT STING OVERVIEW Being stung by a bee, wasp, hornet, or yellowjacket can be both painful and scary. Some people have serious or even life-threatening reactions to stings, requiring quick treatment. INSECT TYPES The insects that cause the most serious sting reactions include the following: ? Honeybees and bumblebees ? Yellowjackets,yellow hornets, white faced hornets, and paper wasps ? Fire ants, harvester ants, bulldog ants, and michael jumper ants. INSECT STING REACTION After being stung, you should remove the stinger from your skin as soon as possible to prevent any more venom from being released into the skin. However, all the venom is released from the stinger within the first few seconds, so this is only helpful if done quickly. You do not need to use any special technique (eg, flicking or scraping) to get the stinger out. Most people who are stung by an insect will develop a local reaction (an area of swelling and redness). Some people will also develop a severe allergic reaction, called anaphylaxis. Local reaction - Immediately after being stung, most people have: ? Sharp or burning pain ? Skin swelling and redness The swelling and pain usually improve within a few hours. Approximately 10 percent of people develop severe redness and swelling after a sting; this is called a large local reaction. The area may become large (4 inches or 10 cm) over 1 to 2 days, then slowly resolve over 5 to 10 days. Having a large local reaction does not mean that you will have a severe allergic reaction (anaphylaxis) if you are stung again. Only about 5 to 10 percent of people who have a large local reaction will have anaphylaxis if stung in the future. If you have a large local reaction, talk to your doctor or nurse to determine what steps, if any, you need to take if you are stung again. Local reaction treatment - To reduce pain and swelling after an insect sting, you can try the following: ? Apply a cold compress (a cold, damp washcloth or damp cloth wrapped around an ice pack) to the area. ? If you develop itching, you can take a nonprescription antihistamine, such as cetirizine (Zyrtec?). ? A pain reliever, such as ibuprofen (sold as Advil, Motrin, and store brands), may help reduce pain. If nonprescription treatments do not help or your pain or swelling gets worse, call your doctor or nurse. Severe allergic reaction - Insect stings are a common cause of severe allergic reactions, called anaphylaxis. You can have an anaphylactic reaction the first time you are stung. Symptoms of an anaphylactic reaction usually develop quickly, and include: ? Skin symptoms, such as hives, redness, or swelling of skin away from the area that was stung (for example, the face or lips may swell after being stung on the hand) ? Belly cramps, nausea, vomiting, or diarrhea ? Hoarse voice, shortness of breath, and difficulty breathing ? Lightheadedness, dizziness, passing out Severe allergic reaction treatment - Severe allergic reactions are a medical emergency that can lead to if not treated quickly. If you develop any symptoms of anaphylaxis, you need to get emergency care as soon as possible. When possible, ask someone else to call for emergency care (call 911 in the [place]). Do not drive yourself to the hospital and do not ask someone else to drive you. Calling 911 is safer than driving for two reasons: ? You can get treatment from the paramedics as soon as the ambulance arrives. If you drive to the hospital, you cannot get treatment until you arrive in t (more content not included)... Normal [facility] Wound Culture/Stainon 2020 Wound Culture/Stain Smear Result - Test sent to [facility]. Account Credited Culture Result - Test sent to [facility]. Account Credited Normal [facility] Office Visit: [facility] 12-30-19 17 Dietary management education, guidance, and counseling (procedure) yes Invalid Interpretation Code [employer] Work Phone: Documentation of current medications (procedure) Done Invalid Interpretation Code [employer] Work Phone: Fall risk assessment No Invalid Interpretation Code [employer] Work Phone: Chart Maintenanceon 07-01-19 17 Left ventricular Ejection fraction 60 % Invalid Interpretation Code [employer] Work Phone: Office Visiton 06-30-2016 Dietary management education, guidance, and counseling (procedure) yes Invalid Interpretation Code [employer] Work Phone: Documentation of current medications (procedure) Done Invalid Interpretation Code [employer] Work Phone: Fall risk assessment No Invalid Interpretation Code [employer] Work Phone: Protein mass conc Done [employer] Work Phone: Replaced Document: Sultana E CG Observationson 06-30-2016 BUN (urea nitrogen) Sinus Bradycardia -F irst degree A-V block Mima = 248-RSR(V1) -possible incomplete right bundle branch block and anterior fascicular block. ABNORMAL Invalid Interpretation Code [employer] Phone: [phone] EKG QRS axis -39 deg Invalid Interpretation Code [employer] Phone: [phone] GE use only - for [employer] import when terms are not otherwise specified 405 ms Invalid Interpretation Code [employer] Phone: [phone] Interpretation Sinus Bradycardia -F irst degree A-V block Mima = 248-RSR(V1) -possible incomplete right bundle branch block and anterior fascicular block. ABNORMAL [employer] Phone: P Mcnary 72 deg Invalid Interpretation Code [employer] Phone: P wave axis, electrocardiogram 72 deg Invalid Interpretation Code [employer] Phone: NE Interval 248 ms Invalid Interpretation Code [employer] Phone: NE interval, electrocardiogram 248 ms Invalid Interpretation Code [employer] Phone: Pulse (Heart Rate) 57 /min Invalid Interpretation Code [employer] Phone: QRS axis, electrocardiogram -39 deg Invalid Interpretation Code [employer] Phone: QRS Duration 104 ms Invalid Interpretation Code [employer] Phone: QRS duration, electrocardiogram 104 ms Invalid Interpretation Code [employer] Phone: QT Interval new path ms Invalid Interpretation Code [employer] Phone: QT interval, electrocardiogram new path ms Invalid Interpretation Code [employer] Phone: QTc Schmidt 405 ms Invalid Interpretation Code [employer] Phone: T Mcnary 47 deg Invalid Interpretation Code [employer] Phone: T wave axis, electrocardiogram 47 deg Invalid Interpretation Code [employer] Phone: [phone] Office Visiton 12-28-2015 Documentation of current medications (procedure) Done Invalid Interpretation Code [employer] Phone: [phone] Office Visiton 09-20-2015 Dietary management education, guidance, and counseling (procedure) yes Invalid Interpretation Code [employer] Phone: [phone] Tobacco smoking status NHIS Never Invalid Interpretation Code [employer] Phone: [phone] Tobacco smoking status NHIS Never smoker [employer] Work Phone: [phone] Tobacco use [facility] Never smoker Invalid Interpretation Code [employer] Phone: [phone] Office Visiton 11-19-2014 General cardiovascular disease 10Y risk [#] Allyssa 9 % Invalid Interpretation Code [employer] Phone: [phone] Replaced Document: Sultana Patterson CG Observationson 11-19-2014 electrocardiogram interpretation Sinus Rhythm -First degree A-V block Mima = 230- Negative precordial T-waves. BORDERLINE RHYTHM Invalid Interpretation Code [employer] Phone: [phone] GE use only - for [employer] import when terms are not otherwise specified 411 ms Invalid Interpretation Code [employer] Phone: [phone] P wave axis, electrocardiogram 59 deg Invalid Interpretation Code [employer] Work Phone: [phone] NE interval, electrocardiogram 230 ms Invalid Interpretation Code [employer] Phone: [phone] Pulse (Heart Rate) 63 /min Invalid Interpretation Code [employer] Phone: [phone] QRS axis, electrocardiogram -33 deg Invalid Interpretation Code [employer] Phone: [phone] QRS duration, electrocardiogram 101 ms Invalid Interpretation Code [employer] Work Phone: [phone] QT interval, electrocardiogram new path ms Invalid Interpretation Code [employer] Work Phone: [phone] T wave axis, electrocardiogram 30 deg Invalid Interpretation Code [employer] Phone: [phone] 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 Alanine aminotransferase (ALT) 27 U/L Invalid Interpretation Code [employer] Phone: [phone] Albumin 3.3 g/dL Low [employer] Phone: [phone] Alkaline phosphatase (ALP) 83 U/L Invalid Interpretation Code [employer] Work Phone: [phone] ALP enzyme act/vol (Bld) 83 U/L [employer] Work Phone: [phone] Anion gap 7 mmol/L Invalid Interpretation Code [employer] Work Phone: [phone] Anion gap molar conc 7 mmol/L [employer] Work Phone: [phone] Aspartate aminotransferase (AST) 19 U/L Invalid Interpretation Code [employer] Work Phone: [phone] Bilirubin (total) 0.60 mg/dL Invalid Interpretation Code [employer] Work Phone: [phone] BUN/Creatinine Ratio 8.9 mg/mg Low [employer] Work Phone: [phone] Calcium 8.4 mg/dL Invalid Interpretation Code [employer] Work Phone: [phone] Chloride 108 mmol/L High [employer] Work Phone: [phone] Cholesterol 143 mg/dL Invalid Interpretation Code [employer] Work Phone: [phone] CO2 24 mmol/L Invalid Interpretation Code [employer] Work Phone: [phone] CO2 ppres (BldV) 24 mmol/L [employer] Work Phone: [phone] Creatinine 0.9 mg/dL Invalid Interpretation Code [employer] Work Phone: [phone] Erythrocytes (RBC) 5.00 10*6/uL Invalid Interpretation Code [employer] Work Phone: [phone] Glucose 120 mg/dL High [employer] Work Phone: [phone] Glucose mass conc 120 mg/dL High [employer] Work Phone: [phone] HDL Cholesterol 25 mg/dL Low [employer] Work Phone: [phone] Hematocrit (HCT) 42.2 % Invalid Interpretation Code [employer] Work Phone: [phone] Hematocrit Volume Fraction (Bld) 42.2 % [employer] Work Phone: [phone] Hemoglobin (HGB) 14.4 g/dL Invalid Interpretation Code [employer] Work Phone: [phone] LDL Cholesterol 86 mg/dL Invalid Interpretation Code [employer] Work Phone: [phone] Magnesium 2.0 mg/dL Invalid Interpretation Code [facility] Work Phone: [phone] Platelets 144 10*3/mm3 Low [facility] Work Phone: [phone] Platelets #/vol (Bld) 144 10*3/mm3 Low [facility] Work Phone: [phone] Potassium 3.4 mmol/L Low [facility] Work Phone: [phone] Protein 6.5 g/dL Invalid Interpretation Code [facility] Work Phone: [phone] RBC #/vol (Bld) 5.00 10*6/uL [facility] Work Phone: [phone] Sodium 139 mmol/L Invalid Interpretation Code [facility] Work Phone: [phone] Triglyceride 159 mg/dL Invalid Interpretation Code [facility] Work Phone: [phone] Urea nitrogen 8 mg/dL Invalid Interpretation Code [facility] Work Phone: [phone] WBC #/vol (Bld) 7.8 10*3/uL [facility] Work Phone: [phone] WBC (Leukocytes) 7.8 10*3/uL Invalid Interpretation Code [facility] Work Phone: [phone] 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 BNP 297.7 pg/mL Invalid Interpretation Code [facility] Work Phone: [phone] Thyroid stimulating hormone (TSH) 2.74 u[iU]/mL Invalid Interpretation Code [facility] Work Phone: [phone] External Other: Preferred Me thod of Contacton 04-16-2014 methcontact secmsg Invalid Interpretation Code [facility] Work Phone: [phone] Patient's prefered method of contact secmsg Invalid Interpretation Code [facility] Work Phone: [phone] Office Visit: [facility] 04-16-19 15 cardiac risk group B Invalid Interpretation Code [facility] Work Phone: [phone] Lab Report: Ordered by Dr. 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 eGFR (non-black) mL/min/{1.73_m2} Invalid Interpretation Code [facility] Work Phone: [phone] Globulin 3.0 g/dL Invalid Interpretation Code [facility] Work Phone: [phone] Globulin mass conc (S) 3.0 g/dL [facility] Work Phone: [phone] Office Visiton 08-19-2001 Colonoscopy (procedure) Unknown Invalid Interpretation Code [facility] Work Phone: [phone] Protein mass conc Unknown [facility] Work Phone: [phone] Culture, urine Bacteria identified Cx Nom (U) Positive [facility] Work Phone: Vital Signs Date Time Vital Sign Value Performing Clinician Faci lity 07-17-2024 09:39-0400 Body height 160.[address] Bria Spencer MD Work Phone: [facility] 07-17-2024 09:39-0400 Body mass index (BMI) [Ratio] 34.8 kg/m2 Dr. Bria Spencer MD Work Phone: [facility] 07-17-2024 09:39-0400 Body weight 89.[address] Bria Spencer MD Work Phone: [facility] 07-17-2024 09:39-0400 Diastolic blood pressure 76 mm[Hg] Dr. Bria Spencer MD Work Phone: [facility] 07-17-2024 09:39-0400 Heart rate 66 /min Dr. Bria Spencer MD Work Phone: [facility] 07-17-2024 09:39-0400 Respiratory rate 16 /min Dr. Bria Spencer MD Work Phone: [facility] 07-17-2024 09:39-0400 SaO2% (BldA) [Mass fraction] 97 % Dr. Bria Spencer MD Work Phone: [facility] 07-17-2024 09:39-0400 Systolic blood pressure 116 mm[Hg] Dr. Bria Spencer MD Work Phone: [facility] 05-15-2024 10:36-0400 Body height 160.[address] Bria Spencer MD Work Phone: [facility] 05-15-2024 10:36-0400 Body mass index (BMI) [Ratio] 34.6 kg/m2 Dr. Bria Spencer MD Work Phone: [facility] 05-15-2024 10:36-0400 Body weight 88.[address] Bria Spencer MD Work Phone: [facility] 05-15-2024 10:36-0400 Diastolic blood pressure 72 mm[Hg] Dr. Bria Spencer MD Work Phone: [facility] 05-15-2024 10:36-0400 Heart rate 61 /min Dr. Bria Spencer MD Work Phone: [facility] 05-15-2024 10:36-0400 Respiratory rate 16 /min Dr. Bria Spencer MD Work Phone: [facility] 05-15-2024 10:36-0400 SaO2% (BldA) [Mass fraction] 95 % Dr. Bria Spencer MD Work Phone: [facility] 05-15-2024 10:36-0400 Systolic blood pressure 110 mm[Hg] Dr. Bria Spencer MD Work Phone: [facility] 09-05-2023 14:29-0400 Body height 160 cm Ita Garcia MD Work Phone: [facility] 09-05-2023 14:29-0400 Body mass index (BMI) [Ratio] 36.6 kg/m2 Ita Garcia MD Work Phone: [facility] 09-05-2023 14:29-0400 Body weight 93.71 kg Ita Garcia MD Work Phone: [facility] 09-05-2023 14:29-0400 Diastolic blood pressure 82 mm[Hg] Ita Garcia MD Work Phone: [facility] 09-05-2023 14:29-0400 Heart rate 60 /min Ita Garcia MD Work Phone: [facility] 09-05-2023 14:29-0400 Systolic blood pressure 129 mm[Hg] Ita Garcia MD Work Phone: [facility] 06-22-2023 08:20-0400 Diastolic blood pressure 71 mm[Hg] Dr. Bria Spencer Work Phone: [facility] 06-22-2023 08:20-0400 Systolic blood pressure 122 mm[Hg] Dr. Bria Spencer Work Phone: [facility] 06-22-2023 08:18-0400 Body temperature 96.9 [degF] Dr. Bria Spencer Work Phone: [facility] 06-22-2023 08:18-0400 Heart rate 62 /min Dr. Bria Spencer Work Phone: [facility] 06-22-2023 08:18-0400 Respiratory rate 16 /min Dr. Bria Spencer Work Phone: [facility] 06-22-2023 08:18-0400 SaO2% (BldA) [Mass fraction] 100 % Dr. Bria Spencer Work Phone: [facility] 06-12-2023 08:09-0400 Body temperature 98 [degF] Dr. Bria Spencer Work Phone: [facility] 06-12-2023 08:09-0400 Diastolic blood pressure 66 mm[Hg] Dr. Bria Spencer Work Phone: [facility] 06-12-2023 08:09-0400 Heart rate 80 /min Dr. Bria Spencer Work Phone: [facility] 06-12-2023 08:09-0400 Respiratory rate 16 /min Dr. Bria Spencer Work Phone: [facility] 06-12-2023 08:09-0400 SaO2% (BldA) [Mass fraction] 97 % Dr. Bria Spencer Work Phone: [facility] 06-12-2023 08:09-0400 Systolic blood pressure 110 mm[Hg] Dr. Bria Spencer Work Phone: [facility] 06-12-2023 06:53-0400 Body height 162.[address] Bria Spencer Work Phone: [facility] 06-12-2023 06:53-0400 Body mass index (BMI) [Ratio] 33.6 kg/m2 Dr. Bria Spencer Work Phone: [facility] 06-12-2023 06:53-0400 Body weight 88.[address] Bria Spencer Work Phone: [facility] 05-21-2023 08:30-0400 Body mass index (BMI) [Ratio] 34.7 kg/m2 Dr. Bria Spencer Work Phone: [facility] 05-21-2023 08:30-0400 Body weight 91.[address] Bria Spencer Work Phone: [facility] 05-21-2023 08:30-0400 Diastolic blood pressure 68 mm[Hg] Dr. Bria Spencer Work Phone: [facility] 05-21-2023 08:30-0400 Respiratory rate 16 /min Dr. Bria Spencer Work Phone: [facility] 05-21-2023 08:30-0400 Systolic blood pressure 98 mm[Hg] Dr. Bria Spencer Work Phone: [facility] 04-04-2023 21:29-0500 Body temperature 98 [degF] Dr. Bria Spencer Work Phone: [facility] 04-04-2023 21:29-0500 Diastolic blood pressure 93 mm[Hg] Dr. Bria Spencer Work Phone: [facility] 04-04-2023 21:29-0500 Heart rate 90 /min Dr. Bria Spencer Work Phone: [facility] 04-04-2023 21:29-0500 Respiratory rate 18 /min Dr. Bria Spencer Work Phone: [facility] 04-04-2023 21:29-0500 SaO2% (BldA) [Mass fraction] 97 % Dr. Bria Spencer Work Phone: [facility] 04-04-2023 21:29-0500 Systolic blood pressure 127 mm[Hg] Dr. Bria Spencer Work Phone: [facility] 04-04-2023 16:38-0500 Body height 162.[address] Bria Spencer Work Phone: [facility] 03-08-2023 14:17-0500 Body temperature 98.1 [degF] Dr. Bria Spencer Work Phone: [facility] 03-08-2023 14:17-0500 Diastolic blood pressure 74 mm[Hg] Dr. Bria Spencer Work Phone: [facility] 03-08-2023 14:17-0500 Heart rate 55 /min Dr. Bria Spencer Work Phone: [facility] 03-08-2023 14:17-0500 Respiratory rate 18 /min Dr. Bria Spencer Work Phone: [facility] 03-08-2023 14:17-0500 SaO2% (BldA) [Mass fraction] 97 % Dr. Bria Spencer Work Phone: [facility] 03-08-2023 14:17-0500 Systolic blood pressure 114 mm[Hg] Dr. Bria Spencer Work Phone: [facility] 03-08-2023 06:31-0500 Body height 162.[address] Bria Spencer Work Phone: [facility] 03-08-2023 06:31-0500 Body mass index (BMI) [Ratio] 36.5 kg/m2 Dr. Bria Spencer Work Phone: [facility] 03-08-2023 06:31-0500 Body weight 96.[address] Bria Spencer Work Phone: [facility] 02-27-2023 08:06-0500 Body mass index (BMI) [Ratio] 36.6 kg/m2 Dr. Bria Spencer Work Phone: [facility] 02-27-2023 08:06-0500 Body temperature 97.2 [degF] Dr. Bria Spencer Work Phone: [facility] 02-27-2023 08:06-0500 Body weight 96.[address] Bria Spencer Work Phone: [facility] 02-27-2023 08:06-0500 Diastolic blood pressure 73 mm[Hg] Dr. Bria Spencer Work Phone: [facility] 02-27-2023 08:06-0500 Heart rate 60 /min Dr. Bria Spencer Work Phone: [facility] 02-27-2023 08:06-0500 Respiratory rate 17 /min Dr. Bria Spencer Work Phone: [facility] 02-27-2023 08:06-0500 SaO2% (BldA) [Mass fraction] 96 % Dr. Bria Spencer Work Phone: [facility] 02-27-2023 08:06-0500 Systolic blood pressure 110 mm[Hg] Dr. Bria Spencer Work Phone: [facility] 12-20-2022 14:56-0400 Body height 162.[address] Bria Spencer Work Phone: [facility] 12-20-2022 14:56-0400 Body mass index (BMI) [Ratio] 37.4 kg/m2 Dr. Bria Spencer Work Phone: [facility] 12-20-2022 14:56-0400 Body weight 98.[address] Bria Spencer Work Phone: [facility] 12-20-2022 14:56-0400 Diastolic blood pressure 70 mm[Hg] Dr. Bria Spencer Work Phone: [facility] 12-20-2022 14:56-0400 Heart rate 67 /min Dr. Bria Spencer Work Phone: [facility] 12-20-2022 14:56-0400 Respiratory rate 17 /min Dr. Bria Spencer Work Phone: [facility] 12-20-2022 14:56-0400 SaO2% (BldA) [Mass fraction] 97 % Dr. Bria Spencer Work Phone: [facility] 12-20-2022 14:56-0400 Systolic blood pressure 117 mm[Hg] Dr. Bria pSencer Work Phone: [facility] 12-11-2022 09:04-0400 Body height 160.[address] Rui Rea [facility] 12-11-2022 09:04-0400 Body weight 100.[address] Rui Rea [facility] 08-24-2022 10:38-0400 Body weight 100.[address] Rui Rea Work Phone: [facility] 08-24-2022 10:38-0400 Diastolic blood pressure 83 mm[Hg] Dr. Rui Rea Work Phone: [facility] 08-24-2022 10:38-0400 Heart rate 61 /min Dr. Riu Rea Work Phone: [facility] 08-24-2022 10:38-0400 Respiratory rate 20 /min Dr. Rui Rea Work Phone: [facility] 08-24-2022 10:38-0400 Systolic blood pressure 128 mm[Hg] Dr. Rui Rea Work Phone: [facility] 08-24-2022 08:41-0400 Body height 160.[address] Rui Rea Work Phone: [facility] 07-12-2022 08:27-0400 Body height 160.[address] Reynaldo Thapa Work Phone: [facility] 07-12-2022 08:19-0400 Body mass index (BMI) [Ratio] 39.4 kg/m2 Dr. Reynaldo Thapa Work Phone: [facility] 07-12-2022 08:19-0400 Body weight 101.[address] Reynaldo Thapa Work Phone: [facility] 07-12-2022 08:19-0400 Diastolic blood pressure 72 mm[Hg] Dr. Reynaldo Thapa Work Phone: [facility] 07-12-2022 08:19-0400 Systolic blood pressure 120 mm[Hg] Dr. Reynaldo Thapa Work Phone: [facility] 06-29-2022 11:00-0400 Body temperature 97.2 [degF] Dr. Reynaldo Thapa Work Phone: [facility] 06-29-2022 11:00-0400 Diastolic blood pressure 75 mm[Hg] Dr. Reynaldo Thaap Work Phone: [facility] 06-29-2022 11:00-0400 Heart rate 60 /min Dr. Reynaldo Thapa Work Phone: [facility] 06-29-2022 11:00-0400 Respiratory rate 16 /min Dr. Reynaldo Thapa Work Phone: [facility] 06-29-2022 11:00-0400 SaO2% (BldA) [Mass fraction] 96 % Dr. Reynaldo Thapa Work Phone: [facility] 06-29-2022 11:00-0400 Systolic blood pressure 145 mm[Hg] Dr. Reynaldo Thapa Work Phone: [facility] 06-29-2022 10:30-0400 Inhaled oxygen flow rate 2 L/min Dr. Reynaldo Thapa Work Phone: [facility] 06-29-2022 08:03-0400 Body height 160.[address] Reynaldo Thapa Work Phone: [facility] 06-29-2022 08:03-0400 Body mass index (BMI) [Ratio] 39.5 kg/m2 Dr. Reynaldo Thapa Work Phone: [facility] 06-29-2022 08:03-0400 Body weight 101.[address] Reynaldo Thapa Work Phone: [facility] 06-08-2022 12:12-0400 Body temperature 97.7 [degF] Dr. Reynaldo Thapa Work Phone: [facility] 06-08-2022 12:12-0400 Diastolic blood pressure 57 mm[Hg] Dr. Reynaldo Thapa Work Phone: [facility] 06-08-2022 12:12-0400 Heart rate 72 /min Dr. Reynaldo Thapa Work Phone: [facility] 06-08-2022 12:12-0400 Respiratory rate 18 /min Dr. Reynaldo Thapa Work Phone: [facility] 06-08-2022 12:12-0400 SaO2% (BldA) [Mass fraction] 94 % Dr. Reynaldo Thapa Work Phone: [facility] 06-08-2022 12:12-0400 Systolic blood pressure 116 mm[Hg] Dr. Reynaldo Thapa Work Phone: [facility] 06-08-2022 07:50-0400 Body height 160.[address] Reynaldo Thapa Work Phone: [facility] 06-08-2022 07:50-0400 Body mass index (BMI) [Ratio] 39.4 kg/m2 Dr. Reynaldo Thapa Work Phone: [facility] 06-08-2022 07:50-0400 Body weight [address] Reynaldo Thapa Work Phone: [facility] 02-02-2022 08:33-0500 Body height 162.[address] Rui Rea Work Phone: [facility] 02-02-2022 08:33-0500 Body mass index (BMI) [Ratio] 37.5 kg/m2 Dr. Rui Rea Work Phone: [facility] 02-02-2022 08:33-0500 Body weight 99.[address] Rui Rea Work Phone: [facility] 02-02-2022 08:33-0500 Diastolic blood pressure 81 mm[Hg] Dr. Rui Rea Work Phone: [facility] 02-02-2022 08:33-0500 Heart rate 69 /min Dr. Rui Rea Work Phone: [facility] 02-02-2022 08:33-0500 Respiratory rate 20 /min Dr. Rui Rea Work Phone: [facility] 02-02-2022 08:33-0500 SaO2% (BldA) [Mass fraction] 97 % Dr. Rui Rea Work Phone: [facility] 02-02-2022 08:33-0500 Systolic blood pressure 117 mm[Hg] Dr. Rui Rea Work Phone: [facility] 10-07-2021 11:32-0400 Diastolic blood pressure 75 mm[Hg] Dr. Rui Rea Work Phone: [facility] Work Phone: 10-07-2021 11:32-0400 Heart rate 60 /min Dr. Rui Rea Work Phone: [facility] Work Phone: 10-07-2021 11:32-0400 Respiratory rate 18 /min Dr. Rui Rea Work Phone: [facility] Work Phone: 10-07-2021 11:32-0400 SaO2% (BldA) [Mass fraction] 97 % Dr. Rui Rea Work Phone: [facility] Work Phone: 10-07-2021 11:32-0400 Systolic blood pressure 141 mm[Hg] Dr. Rui Rea Work Phone: [facility] Work Phone: 10-07-2021 09:53-0400 Body height 162.[address] Rui Rea Work Phone: [facility] Work Phone: 10-07-2021 09:53-0400 Body mass index (BMI) [Ratio] 38.5 kg/m2 Dr. Rui Rea Work Phone: [facility] Work Phone: 10-07-2021 09:53-0400 Body temperature 98.2 [degF] Dr. Rui Rea Work Phone: [facility] Work Phone: 10-07-2021 09:53-0400 Body weight 102.[address] Rui Rea Work Phone: [facility] Work Phone: 08-09-2021 13:36-0400 Body mass index (BMI) [Ratio] 37.2 kg/m2 Dr. Rui Rea Work Phone: [facility] Work Phone: 08-09-2021 13:36-0400 Body weight 98.[address] Rui Rea Work Phone: [facility] Work Phone: 08-09-2021 13:36-0400 Diastolic blood pressure 76 mm[Hg] Dr. Rui Rea Work Phone: [facility] Work Phone: 08-09-2021 13:36-0400 Heart rate 60 /min Dr. Rui Rea Work Phone: [facility] Work Phone: 08-09-2021 13:36-0400 Respiratory rate 18 /min Dr. Rui Rea Work Phone: [facility] Work Phone: 08-09-2021 13:36-0400 Systolic blood pressure 146 mm[Hg] Dr. Rui Rea Work Phone: [facility] Work Phone: 07-16-2021 00:37-0400 Diastolic blood pressure 114 mm[Hg] Dr. Rui Rea Work Phone: [facility] Work Phone: 07-16-2021 00:37-0400 Heart rate 157 /min Dr. Rui Rea Work Phone: [facility] Work Phone: 07-16-2021 00:37-0400 Systolic blood pressure 135 mm[Hg] Dr. Rui Rea Work Phone: [facility] Work Phone: 07-15-2021 22:36-0400 Body temperature 96.8 [degF] Dr. Rui Rea Work Phone: [facility] Work Phone: 07-15-2021 22:36-0400 Respiratory rate 17 /min Dr. Rui Rea Work Phone: [facility] Work Phone: 07-15-2021 22:36-0400 SaO2% (BldA) [Mass fraction] 95 % Dr. Rui Rea Work Phone: [facility] Work Phone: 07-15-2021 22:34-0400 Body height 162.[address] Rui Rea Work Phone: [facility] Work Phone: 07-15-2021 22:34-0400 Body mass index (BMI) [Ratio] 38.7 kg/m2 Dr. Rui Rea Work Phone: [facility] Work Phone: 07-15-2021 22:34-0400 Body weight 102.[address] Rui Rea Work Phone: [facility] Work Phone: 07-15-2021 15:52-0400 Body temperature 98.3 [degF] Dr. Rui Rea Work Phone: [facility] Work Phone: 07-15-2021 15:52-0400 Diastolic blood pressure 70 mm[Hg] Dr. Rui Rea Work Phone: [facility] Work Phone: 07-15-2021 15:52-0400 Heart rate 89 /min Dr. Rui Rea Work Phone: [facility] Work Phone: 07-15-2021 15:52-0400 Respiratory rate 17 /min Dr. Rui Rea Work Phone: [facility] Work Phone: 07-15-2021 15:52-0400 SaO2% (BldA) [Mass fraction] 94 % Dr. Rui Rea Work Phone: [facility] Work Phone: 07-15-2021 15:52-0400 Systolic blood pressure 120 mm[Hg] Dr. Rui Rea Work Phone: [facility] Work Phone: 07-15-2021 15:52-0400 Body temperature 98.3 [degF] Dr. Rui Rea Work Phone: [facility] Work Phone: 07-15-2021 15:52-0400 Diastolic blood pressure 70 mm[Hg] Dr. Rui Rea Work Phone: [facility] Work Phone: 07-15-2021 15:52-0400 Heart rate 89 /min Dr. Rui Rea Work Phone: [facility] Work Phone: 07-15-2021 15:52-0400 Respiratory rate 17 /min Dr. Rui Rea Work Phone: [facility] Work Phone: 07-15-2021 15:52-0400 SaO2% (BldA) [Mass fraction] 94 % Dr. Rui Rea Work Phone: [facility] Work Phone: 07-15-2021 15:52-0400 Systolic blood pressure 120 mm[Hg] Dr. Rui Rea Work Phone: [facility] Work Phone: 07-05-2021 08:32-0400 Body mass index (BMI) [Ratio] 37.4 kg/m2 Dr. Rui Rea Work Phone: [facility] Work Phone: 07-05-2021 08:32-0400 Body weight 98.[address] Rui Rea Work Phone: [facility] Work Phone: 07-05-2021 08:32-0400 Diastolic blood pressure 78 mm[Hg] Dr. Rui Rea Work Phone: [facility] Work Phone: 07-05-2021 08:32-0400 Systolic blood pressure 120 mm[Hg] Dr. Rui Rea Work Phone: [facility] Work Phone: 07-05-2021 08:32-0400 Body height 162.[address] Rui Rea Work Phone: [facility] Work Phone: 07-05-2021 08:32-0400 Body mass index (BMI) [Ratio] 37.4 kg/m2 Dr. Rui Rea Work Phone: [facility] Work Phone: 07-05-2021 08:32-0400 Body weight 98.[address] Rui Rea Work Phone: [facility] Work Phone: 07-05-2021 08:32-0400 Diastolic blood pressure 78 mm[Hg] Dr. Rui Rea Work Phone: [facility] Work Phone: 07-05-2021 08:32-0400 Systolic blood pressure 120 mm[Hg] Dr. Rui Rea Work Phone: [facility] Work Phone: 03-31-2021 09:11-0500 Body weight 97.[address] Rui Rea Work Phone: [facility] Work Phone: 03-31-2021 09:11-0500 Diastolic blood pressure 88 mm[Hg] Dr. Rui Rea Work Phone: [facility] Work Phone: 03-31-2021 09:11-0500 Heart rate 108 /min Dr. Rui Rea Work Phone: [facility] Work Phone: 03-31-2021 09:11-0500 Respiratory rate 16 /min Dr. Rui Rea Work Phone: [facility] Work Phone: 03-31-2021 09:11-0500 SaO2% (BldA) [Mass fraction] 95 % Dr. Rui Rea Work Phone: [facility] Work Phone: 03-31-2021 09:11-0500 Systolic blood pressure 121 mm[Hg] Dr. Rui Rea Work Phone: [facility] Work Phone: 06-22-2020 15:40-0400 Body mass index (BMI) [Ratio] 37.9 kg/m2 Dr. Rui Rea Work Phone: [facility] Work Phone: 12-29-2016 10:52-0500 BMI (Body Mass Index) 35.36 kg/m2 Marta Urrutia [facility] Work Phone: 12-29-2016 10:52-0500 BP Diastolic 78 mm[Hg] Marta Iveyby [facility] Work Phone: 12-29-2016 10:52-0500 BP Systolic 120 mm[Hg] [facility] Work Phone: 12-29-2016 10:52-0500 Height 162.56 cm Marta [facility] Work Phone: 12-29-2016 10:52-0500 Pulse (Heart Rate) 60 /min Marta [facility] Work Phone: 12-29-2016 10:52-0500 Respiratory Rate 20 /min Marta [facility] Work Phone: 12-29-2016 10:52-0500 Weight 93.44 kg Marta [facility] Work Phone: 06-30-2016 10:41-0400 Heart rate 57 /min Nellie Yoselyn [facility] Work Phone: 06-30-2016 10:28-0400 BMI (Body Mass Index) 37.24 kg/m2 [facility] Work Phone: 06-30-2016 10:28-0400 BP Diastolic 70 mm[Hg] Nellie Marthey [facility] Work Phone: 06-30-2016 10:28-0400 BP Systolic 122 mm[Hg] Nellie Marthey [facility] Work Phone: 06-30-2016 10:28-0400 Height 162.56 cm Nellie Martblairy [facility] Work Phone: 06-30-2016 10:28-0400 Pulse (Heart Rate) 58 /min Nellie Marthey [facility] Work Phone: 06-30-2016 10:28-0400 Pulse Oximetry 98 % Nellie Marthey [facility] Work Phone: 06-30-2016 10:28-0400 Respiratory Rate 20 /min Nellie Marthey [facility] Work Phone: 06-30-2016 10:28-0400 Weight 98.43 kg Nellie Marthey [facility] Work Phone: 12-28-2015 10:47-0500 BMI [...] Phone: 09-20-2015 14:56-0400 Pulse Oximetry 96 % Abigail Baltazar RN [facility] Work Phone: 04-19-2012 13:13-0500 Height 162.56 cm [facility] Work Phone: Encounters Encounter Date Encounter Type Care Provider Facility Start: 08-25-2024 End: 08-25-[address] Bria Spencer MD Work Phone: -[facility] Start: 08-25-2024 End: 08-25-[address] Reynaldo Thapa MD -[facility] Work Phone: Start: 07-18-2024 End: 07-18-[address] Bria Spencer MD Work Phone: [facility] Work Phone: Start: 07-18-2024 End: 07-18-[address] Bria Spencer MD -Laboratory Work Phone: Start: 07-17-2024 End: 07-17-2024 Patient encounter procedure Clarisse RAO -[facility] Work Phone: Start: 07-17-2024 End: 07-18-[address] Bria Spencer MD Work Phone: [facility] Work Phone: Start: 07-17-2024 End: 07-17-2024 ambulatory Bria Spencer Facility:[facility] Start: 07-07-2024 End: 07-07-[address] Bria Spencer MD Work Phone: [facility] Work Phone: Start: 07-07-2024 End: 07-07-2024 Patient encounter procedure Clarisse RAO -Radiology [facility] Work Phone: Start: 07-07-2024 End: 07-07-2024 ambulatory [facility] Facility:[facility] Start: 07-01-2024 End: 07-01-[address] Bria Spencer MD Work Phone: [facility] Work Phone: Start: 07-01-2024 End: 07-01-2024 Patient encounter procedure [facility] Work Phone: Start: 07-01-2024 End: 07-01-2024 ambulatory Bria Mibrianna Facility:[facility] Start: 05-26-2024 End: 05-26-2024 ambulatory [facility] Facility:[facility] Start: 05-26-2024 End: 05-26-[address] Reynaldo Thapa MD -[facility] Work Phone: Start: 05-15-2024 End: 05-15-2024 Patient encounter procedure Clarisse RAO -[facility] Work Phone: Start: 05-15-2024 End: 05-15-2024 ambulatory Briaharjit Spencer Facility:[facility] Start: 03-07-2024 End: 03-07-[address] Bria Spencer MD -Radiology [place] Work Phone: Start: 03-07-2024 End: 03-07-2024 ambulatory Langley Noble Facility:[facility] Start: 02-25-2024 End: 02-25-2024 ambulatory Bria Spencer Facility:[facility] Start: 11-26-2023 End: 11-26-2023 ambulatory Bria Spencer Facility:[facility] Start: 09-10-2023 ambulatory Sergio Abebe [employer] Facility :[facility] Start: 09-10-2023 End: 09-10-2023 ambulatory Sergio Abebe [employer] Facility:[facility] Start: 09-05-2023 End: 09-05-2023 Patient encounter procedure Ita Garcia MD Work Phone: [facility] Comment on above: Esophagogastric junc tion outflow obstruction (Primary Dx); Atrial fibrillation, unspecified type (HCC); Type 2 diabetes mellitus with other specified complication, without long-term current use of insulin (HCC); IRON (obstructive sleep apnea); Class 2 severe obesity with serious comorbidity and body mass index (BMI) of 36.0 to 36.9 in adult, unspecified obesity type (HCC) Start: 09-05-2023 End: 09-05-2023 ambulatory RUI REA Facility:[facility] Start: 09-04-2023 Telephone encounter Ita perez MD Work Phone: [facility] Comment on above: Appointment Start: 06-22-2023 End: 06-22-2023 Admission to same day surgery center Dr. Bria Spencer Work Phone: [facility]-Endoscopy Work Phone: Start: 06-22-2023 End: 06-22-[address] Bria Spencer Work Phone: [facility] Work Phone: Start: 06-12-2023 Non-patient / Non-visit Dr. Sebastián Spencer Work Phone: [facility] Start: 06-12-2023 End: 06-12-2023 Admission to same day surgery center Dr. Bria Spencer Work Phone: [facility]-Endoscopy Work Phone: Start: 06-12-2023 End: 06-12-[address] Bria Spencer Work Phone: [facility] Work Phone: Start: 05-28-2023 End: 05-28-[address] Bria Spencer Work Phone: [facility] Work Phone: Start: 05-21-2023 End: 05-21-[address] Bria Spencer Work Phone: [facility] Work Phone: Start: 04-04-2023 End: 04-04-2023 Emergency department patient visit Dr. Bria Spencer Work Phone: [facility]-Emergency Department Work Phone: Start: 03-15-2023 End: 03-15-[address] Bria Spencer Work Phone: [facility] Work Phone: Start: 03-15-2023 End: 03-15-[address] Bria Spencer Work Phone: [facility] Work Phone: Start: 03-08-2023 Non-patient / Non-visit Dr. Sebastián Spencer Work Phone: [facility] Start: 03-08-2023 End: 03-08-2023 Non-patient / Non-visit Dr. Bria Spencer Work Phone: [facility] Work Phone: Start: 03-08-2023 End: 03-08-2023 Admission to same day surgery [facility] Start: 03-08-2023 End: 03-08-[address] Bria Spencer Work Phone: [facility] Work Phone: Start: 02-27-2023 End: 02-27-[address] Bria Spencer Work Phone: [facility] Work Phone: Start: 02-26-2023 End: 02-26-[address] Bria Spencer Work Phone: [facility] Work Phone: Start: 02-20-2023 End: 02-20-[address] Bria Spencer Work Phone: [facility] Work Phone: Start: 02-20-2023 End: 02-20-[address] [facility] Start: 12-20-2022 End: 12-20-[address] Bria Spencer Work Phone: [facility] Work Phone: Start: 12-14-2022 End: 12-14-[address] Rui Rea [facility] Work Phone: Start: 12-14-2022 End: 12-14-[address] Rui Rea [facility]-Nuclear Medicine, [facility] Work Phone: Start: 12-11-2022 End: 12-19-[address] Rui Rea [facility] Work Phone: Start: 12-11-2022 End: 12-19-[address] Rui Rea [facility]-Nutritional Services Work Phone: Start: 12-11-[address] Rui chang [facility] Work Phone: Start: 11-24-2022 End: 11-24-[address] Rui Rea [facility]-Ultrasound, [facility] Work Phone: Start: 11-22-2022 End: 11-22-[address] Bria Spencer Work Phone: [facility] Work Phone: Start: 11-08-2022 End: 11-08-[address] Rui Rea [facility] Start: 09-15-2022 End: 09-15-[address] Rui Rea Work Phone: [facility] Work Phone: Start: 09-15-2022 End: 09-15-[address] Rui Rea Work Phone: [facility] Start: 08-24-2022 End: 08-24-[address] Rui Rea Work Phone: [facility] Work Phone: Start: 08-18-2022 End: 08-18-[address] Reynaldo Thapa Work Phone: [facility] Work Phone: Start: 08-18-2022 End: 08-18-[address] Reynaldo Thapa Work Phone: [facility] Work Phone: Start: 08-16-2022 End: 08-16-[address] Reynaldo Thapa Work Phone: [facility] Work Phone: Start: 07-13-2022 End: 07-13-[address] Reynaldo Thapa Work Phone: [facility] Work Phone: Start: 07-13-2022 End: 07-13-[address] Reynaldo Thapa Work Phone: [facility]-Outpatient Breast Imaging Start: 07-12-2022 End: 07-12-[address] Reynaldo Thapa Work Phone: [facility] Start: 06-29-2022 End: 06-29-2022 Admission to same day surgery center Dr. Reynaldo Thapa Work Phone: [facility] Start: 06-29-2022 End: 06-29-[address] Reynaldo Thapa Work Phone: [facility] Work Phone: Start: 06-09-2022 End: 06-09-[address] Reynaldo Thapa Work Phone: [facility] Work Phone: Start: 06-09-2022 End: 06-09-[address] Reynaldo Thapa Work Phone: [facility] Start: 06-08-2022 End: 06-08-2022 Admission to same day surgery center Dr. Reynaldo Thapa Work Phone: [facility] Start: 06-08-2022 End: 06-08-[address] Reynaldo Thapa Work Phone: [facility] Work Phone: Start: 05-05-2022 End: 05-05-[address] Rui Rea Work Phone: [facility] Start: 05-03-2022 End: 05-03-[address] Rui Rea Work Phone: [facility] Work Phone: Start: 05-03-2022 End: 05-03-[address] Rui Rea Work Phone: [facility]-Radiology, [facility] Start: 03-06-2022 End: 03-06-[address] Rui Rea Work Phone: [facility] Work Phone: Start: 03-06-2022 End: 03-06-[address] Rui Rea Work Phone: [facility]-Cat Scan, [facility] Start: 02-24-2022 End: 02-24-[address] Rui Rea Work Phone: [facility] Work Phone: Start: 02-24-2022 End: 02-24-[address] Rui Rea Work Phone: [facility]-Ultrasound, [facility] Start: 02-21-2022 End: 02-21-[address] Rui Rea Work Phone: [facility] Work Phone: Start: 02-21-2022 End: 02-21-[address] Rui Rea Work Phone: [facility]-Laboratory, [place] Start: 02-02-2022 End: 02-02-[address] Rui Rea Work Phone: [facility] Start: 01-20-2022 End: 01-20-[address] Rui Rea Work Phone: [facility] Work Phone: Start: 01-20-2022 End: 01-20-[address] Rui Rea Work Phone: [facility]-Laboratory, Specimen Start: 01-17-2022 End: 01-17-[address] Rui Rea Work Phone: [facility] Work Phone: Start: 01-17-2022 End: 01-17-[address] Rui Rea Work Phone: [facility]-Radiology, [facility] Start: 12-28-2021 End: 12-28-[address] Rui Rea Work Phone: [facility] Start: 12-20-2021 End: 12-20-[address] Rui Rea Work Phone: [facility] Start: 11-09-2021 End: 11-09-[address] Rui Rea Work Phone: [facility] Work Phone: Start: 11-09-2021 End: 11-09-[address] Rui Rea Work Phone: [facility]-Outpatient Bone Densitometry Start: 10-07-2021 End: 10-07-2021 Emergency department patient visit Dr. Rui Rea Work Phone: [facility]-Emergency Department Start: 09-14-2021 End: 09-14-[address] Rui Rea Work Phone: [facility] Start: 08-09-2021 End: 08-09-[address] Rui Rea Work Phone: [facility] Start: 07-15-2021 End: 07-16-2021 Emergency department patient visit Dr. Rui Rea Work Phone: [facility]-Emergency Department Start: 07-15-2021 End: 07-15-[address] Rui Rea Work Phone: [facility] Start: 07-12-2021 End: 07-12-[address] Rui Rea Work Phone: [facility]-Ultrasound, [facility] Start: 07-06-2021 End: 07-06-[address] Rui Rea Work Phone: [facility]-Outpatient Breast Imaging Start: 07-05-2021 End: 07-05-[address] Rui Rea Work Phone: [facility] Start: 06-08-2021 End: 06-08-[address] Rui Rea Work Phone: [facility] Start: 03-31-2021 End: 03-31-[address] Rui Rea Work Phone: [facility] Procedures Date Procedure Procedure Detail Performing Clinician Start: 07-18-[address] Bria Spencer MD Work Phone: Start: 07-18-2024 Parathyroid hormone measurement Dr. Bert Spencer MD Work Phone: Start: 07-18-[address] Bria Spencer MD Work Phone: Comment on above: Test Ordered: [id number] 25-Hydroxyvitamin D LCMS D2+I242-Ttzqpdv, Vitamin D 35 ng/mL ES Reference Range: .Reference Range:All Ages: Target levels 30 - 01264-Rpolvrg, Vitamin D-2 <1.0 ng/mL ES Reference Range: .This test was developed and its performance characteristicsdetermined by [facility]. It has not been cleared or approvedby the Food and Drug Administration.25-Hydroxy, Vitamin D-3 35 ng/mL ES Reference Range: .This test was developed and its performance characteristicsdetermined by [facility]. It has not been cleared or approvedby the Food and Drug Administration.Performed at: [facility] [place] [address] [id number] Director: Justus Hodges MD, Phone: [phone] at: [facility] [id number] Director: Onur Marcum PhD, Phone: [phone] Start: 07-07-2024 X-ray of esophagus with double contrast Dr. Bria Spencer MD Work Phone: Start: 07-01-[address] Bria Spencer MD Work Phone: Start: 03-07-2024 Plain X-ray of shoulder Dr. Bria vila MD Work Phone: Start: 06-22-[address] Bria Spencer Work Phone: Start: 06-12-[address] Bria Spencer Work Phone: Start: 04-04-2023 Plain chest X-ray Dr. Bria Spencer Work Phone: Start: 04-04-2023 Computed tomography of abdomen and pelvis with intravenous contrast Dr. Bria Spencer Work Phone: Start: 03-08-[address] Bria Spencer Work Phone: Start: 12-14-2022 Radioisotope scan of parathyroid Dr. Andrae Rea Start: 11-24-2022 US scan of thyroid Dr. Rui Rea Start: 07-13-[address] Reynaldo Thapa Work Phone: Start: 06-29-[address] Reynaldo Thapa Work Phone: Start: 06-29-2022 Cysto,Ureteroscopy,Retro,Dil,Ext,S tent (Right) Dr. Reynaldo Thapa Work Phone: Start: 06-08-2022 Cystoscopy and retrograde pyelography Dr. Reynaldo Thapa Work Phone: Start: 06-08-[address] Reynaldo Thapa Work Phone: Start: 05-03-2022 X-ray of lumbosacral spine Dr. Rui bledsoe Work Phone: Start: 05-03-2022 Radiography of thoracic spine Dr. Rui Rea Work Phone: Start: 03-06-2022 Computed tomography of abdomen and pelvis with contrast Dr. Rui Rea Work Phone: Start: 02-24-[address] Rui Rea Work Phone: Start: 01-17-[address] Rui Rea Work Phone: Start: 12-20-[address] Rui Rea Work Phone: Start: 11-09-2021 Dual energy X-ray absorptiometry Dr. Andrae Rea Work Phone: Start: 10-07-[address] Rui Rea Work Phone: Start: 07-12-[address] Rui Rea Work Phone: Start: 07-06-[address] Rui Rea Work Phone: Start: 12-29-2016 End: 12-29-2016 DAKOTAH Cheng PA-C Work Phone: Start: 12-29-2016 End: 12-29-2016 Follow Up Appt 6 months Jazmin Cheng PA-C Work Phone: Start: 06-30-2016 End: 12-19-2016 Ecg routine ecg w/least 12 lds w/i&r Reynaldo Thapa MD Start: 06-30-2016 End: 12-19-2016 Follow Up Appt 6 months Nanci Rios Start: 06-30-2016 End: 12-19-2016 RODOLFO Thapa MD Start: 06-30-2016 End: 06-30-2016 Dietary management education, guidance, and counseling Nellie Topete Start: 12-28-2015 End: 12-28-2015 Follow Up Appt 6 months Nanci Rios Start: 12-28-2015 End: 12-28-2015 RODOLFO Thapa MD Start: 12-28-2015 End: 12-28-2015 Follow Up Appt 6 months Nanci Rios Start: 12-28-2015 End: 12-28-2015 RODOLFO Thapa MD Start: 09-27-2015 End: 10-04-2015 Screening for malignant neoplasm of colon Screening, colon ca Nelliejosef Topete Start: 09-20-2015 End: 09-24-2015 Follow Up after Imaging/labs Win John MD Work Phone: Start: 09-20-2015 End: 09-24-2015 Radex esophagus Win John MD Work Phone: Start: 09-20-2015 End: 09-21-2015 Referral to physician Win John MD Work Phone: Start: 09-20-2015 End: 08-05-2016 Contrast x-ray, esophagus Win John MD Work Phone: Start: 09-20-2015 End: 09-24-2015 Follow Up after Imaging/labs Win John MD Work Phone: Start: 09-20-2015 End: 09-21-2015 Referral to physician Win John MD Work Phone: Start: 06-18-2015 End: 06-18-2015 [...] End: 11-19-2014 MMM Reynaldo Thapa MD Start: 11-19-2014 End: 11-20-2014 Documentation of current medications Reynaldo Thapa MD Start: 11-19-2014 End: 11-19-2014 Electrocardiogram, complete Reynaldo Neville i, MD Start: 11-19-2014 End: 11-19-2014 Follow Up [...] months Nanci Rios Start: 08-05-2014 End: 08-05-2014 DAKOTAH Thapa MD Start: 08-05-2014 End: 08-06-2014 Documentation of current medications Reynaldo Thapa MD Start: 08-05-2014 End: 08-05-2014 Electrocardiogram, complete Reynaldo Neville i, MD Start: 08-05-2014 End: 08-05-2014 Follow Up Appt 3 months Nanci Rios Start: 04-16-2014 End: 04-16-2014 UTILITY MECHANIC Jazmin Cheng PA-C Work Phone: Start: 04-16-2014 End: 04-17-2014 Documentation of current medications Jazmin Cheng PA-C Work Phone: Start: 04-16-2014 End: 04-16-2014 Ecg routine ecg w/least 12 lds w/i&r Jazmin Cheng PA-C Work Phone: Start: 04-16-2014 End: 04-16-2014 Follow Up Appt 1 year Jazmin Cheng PA-C Work Phone: Start: 04-16-2014 End: 04-16-2014 UTILITY MECHANIC Jazmin Cheng PA-C Work Phone: Start: 04-16-2014 End: 04-17-2014 Documentation of current medications Jazmin Cheng PA-C Work Phone: Start: 04-16-2014 End: 04-16-2014 Electrocardiogram, complete Jazmin Cheng PA-C Work Phone: Start: 04-16-2014 End: 04-16-2014 Follow Up Appt 1 year Jazmin Cheng PA-C Work Phone: Start: 10-20-2013 End: 04-27-2015 [...] 10-16-2012 End: 11-17-2012 *Hepatic Function Panel Jazmin Cheng PA-C Work Phone: Start: 10-16-2012 End: 10-16-2012 UTILITY MECHANIC Jazmin Cheng PA-C Work Phone: Start: 10-16-2012 End: 10-16-2012 Follow Up Appt 6 months Jazmin Cheng PA-C Work Phone: Start: 10-16-2012 End: 11-19-2012 Lipid 1996 panel - Serum or Plasma Yamilet Cheng PA-C Work Phone: Start: 10-16-2012 End: 11-17-2012 *Hepatic Function Panel Jazmin Cheng PA-C Work Phone: Start: 10-16-2012 End: 10-16-2012 UTILITY MECHANIC Jazmin Cheng PA-C Work Phone: Start: 10-16-2012 End: 10-16-2012 Follow Up Appt 6 months Jazmin Cheng PA-C Work Phone: Start: 10-16-2012 End: 11-19-2012 Lipid panel [AGGREGATE] Jazmin Cheng PA-C Work Phone: Start: 04-19-2012 End: 04-19-2012 Ecg routine ecg w/least 12 lds w/i&r Reynaldo Thapa MD Start: 04-19-2012 End: 04-19-2012 Follow Up Appt 6 months Nanci Rios Start: 04-19-2012 End: 04-19-2012 RODOLFO Thapa MD Start: 04-19-2012 End: 04-19-2012 Electrocardiogram, complete Reynaldo Neville i, MD Start: 04-19-2012 End: 04-19-2012 Follow Up Appt 6 months Nanci Rios Start: 04-19-2012 End: 04-19-2012 RODOLFO Thapa MD H/O: surgery History of detached retina repair Dr. Rui Rea Work Phone: Urine culture Dr. Rui quick Work Phone: Urine culture Dr. Rui quick Work Phone: Plan of Treatment Date Care Activity Detail Author Start: 01-01-2025 Urine microalbumin profile DTaP,Tdap,Td Vaccine (3 - Td or Tdap) [facility] Start: 09-12-2024 ambulatory Ambulatory Facility:[facility] Start: 07-17-2024 Patient referral [facility] Work Phone: Start: 07-17-2024 Basic metabolic 2008 panel with ionized calcium - Serum or Plasma [facility] Start: 07-17-2024 CBC W Auto Differential panel - Blood [facility] Start: 05-15-2024 Patient referral [facility] Work Phone: Start: 11-15-2023 End: 11-15-2023 Patient encounter procedure 11/15/2023 11:30 AM EDT [facility]IATRIC DEPART[facility] [address] [place], [place] [id number] Ita Garcia MD [address] [id number] maria a ASIF MD [facility] Comment on above: maria a ASIF MD Start: 11-05-2023 End: 11-05-2023 Patient encounter procedure 11/05/2023 9:00 AM EDT Appointment [facility] [address] [place], [place] [id number] scheduled w/dr office [facility] Comment on above: scheduled w/dr office Start: 10-21-2023 [facility] Start: 09-05-2023 End: 09-05-2023 Patient encounter procedure 09/05/2023 2:30 PM EDT Office Visit [facility]PART[facility] [address] [place], [place] [id number] Ita Garcia MD 1 [facility] [address] [place] [address] New Patient - Referral - achalsia of cardia-referred by Dr. John [facility] Comment on above: New Patient - Referral - achalsia of car cami-referred by Dr. John Start: 06-22-2023 Patient discharge [facility] Start: 06-12-2023 Colonoscopy w/biopsy single/multiple COLONOSCOPY AND BIOPSY [facility] Start: 06-12-2023 Esophagogastroduodenoscopy transoral diagnostic EGD DIAGNOSTIC BRUSH WASH [facility] Start: 06-12-2023 Patient discharge [facility] Start: 03-08-2023 Anes esoph thyrd larynx trach & lymph neck 1yr ANESTH NECK ORGAN 1YR/> [facility] Start: 03-08-2023 Parathyroidectomy/exploration parathyroids EXPLORE PARATHYROID GLANDS [facility] Start: 03-08-2023 Patient discharge [facility] Start: 02-19-2023 Advance Directive Discussion Advance Directive Discussion [facility] Start: 02-19-2023 Behavioral Health Screening Behavioral Health Screening [facility] Start: 10-20-2022 Covid-19 Vaccine () Covid-19 Vaccine () [facility] Start: 10-20-2022 Covid-19 Vaccine ( season) Covid-19 Vaccine () [facility] Start: 09-15-2022 Procedure [facility] Start: 06-29-2022 Anes lithotrp xtrcorp shock wave w/o water bath ANESTH KIDNEY STONE DESTRUCT [facility] Start: 06-29-2022 Cysto/uretero w/lithotripsy &indwell stent insrt CYSTO/URETERO W/LITHOTRIPSY [facility] Start: 06-29-2022 Patient discharge [facility] Start: 06-08-2022 Anes trurl fragmntj manj&/rmvl ureteral calculus ANESTH STONE REMOVAL [facility] Start: 06-08-2022 Cysto/uretero w/lithotripsy &indwell stent insrt CYSTO/URETERO W/LITHOTRIPSY [facility] Start: 06-08-2022 Patient discharge [facility] Start: 10-12-2019 Pneumococcal Vaccine: 65+ (2 of 2 - PPSV23 or PCV20) Pneumococcal Vaccine: 65+ (2 of 2 - PPSV23 or PCV20) [facility] Start: 07-10-2017 End: 07-10-2017 Appointment Appointment [facility] Work Phone: Start: 12-29-2016 End: 12-29-2016 UTILITY MECHANIC UTILITY MECHANIC [facility] Work Phone: Start: 12-29-2016 End: 12-29-2016 Follow Up Appt 6 months Follow Up Appt 6 months [facility] Work Phone: Start: 12-29-2016 End: 12-29-2016 Appointment Appointment [facility] Work Phone: Start: 12-29-2016 End: 12-29-2016 Appointment Appointment [facility] Work Phone: Start: 06-30-2016 End: 12-19-2016 Ecg routine ecg w/least 12 lds w/i&r EKG (In office) [facility] Work Phone: Start: 06-30-2016 End: 12-19-2016 Follow Up Appt 6 months Follow Up Appt 6 months [facility] Work Phone: Start: 06-30-2016 End: 12-19-2016 MMM MMM [facility] Work Phone: Start: 06-30-2016 End: 06-30-2016 Appointment Appointment [facility] Work Phone: Start: 06-30-2016 End: 06-30-2016 Electrocardiogram, complete EKG (In office) [facility] Work Phone: Start: 06-30-2016 End: 06-30-2016 Follow Up Appt 6 months Follow Up Appt 6 months [facility] Work Phone: Start: 06-30-2016 End: 06-30-2016 MMM MMM [facility] Work Phone: Start: 12-28-2015 End: 12-28-2015 Follow Up Appt 6 months Follow Up Appt 6 months [facility] Work Phone: Start: 12-28-2015 End: 12-28-2015 MMM MMM [facility] Work Phone: Start: 12-28-2015 End: 12-28-2015 Follow Up Appt 6 months Follow Up Appt 6 months [facility] Work Phone: Start: 12-28-2015 End: 12-28-2015 MMM MMM [facility] Work Phone: Start: 09-27-2015 End: 09-27-2015 Colonoscopy flx dx w/collj spec when pfrmd Colonoscopy [facility] Work Phone: Start: 09-27-2015 End: 09-27-2015 Esophagogastroduodenoscopy transoral diagnostic Upper gastrointestinal endoscopy [facility] Work Phone: Start: 09-27-2015 End: 09-27-2015 Diagnostic colonoscopy Colonoscopy [facility] Work Phone: Start: 09-27-2015 End: 09-27-2015 Uppr gi endoscopy, diagnosis Upper gastrointestinal endoscopy [facility] Work Phone: Start: 09-20-2015 End: 09-24-2015 Follow Up after Imaging/labs Follow Up after Imaging/labs [facility] Work Phone: Start: 09-20-2015 End: 09-24-2015 Primary Care Physician Primary Care Physician [facility] Work Phone: Start: 09-20-2015 End: 09-24-2015 Radex esophagus X-Ray, Esophagus & Pharynx [facility] Work Phone: Start: 09-20-2015 End: 09-24-2015 Contrast x-ray, esophagus X-Ray, Esophagus & Pharynx [facility] Work Phone: Start: 09-20-2015 End: 09-24-2015 Follow Up after Imaging/labs Follow Up after Imaging/labs [facility] Work Phone: Start: 09-20-2015 End: 09-24-2015 Primary Care Physician Primary Care Physician [facility] Work Phone: Start: 06-18-2015 End: 06-18-2015 UTILITY MECHANIC UTILITY MECHANIC [facility] Work Phone: Start: 06-18-2015 End: 06-18-2015 Follow Up Appt 6 months Follow Up Appt 6 months [facility] Work Phone: Start: 06-18-2015 End: 06-18-2015 UTILITY MECHANIC UTILITY MECHANIC [facility] Work Phone: Start: 06-18-2015 End: 06-18-2015 Follow Up Appt 6 months Follow Up Appt 6 months [facility] Work Phone: Start: 11-19-2014 End: 11-19-2014 Ecg routine ecg w/least 12 lds w/i&r EKG (In office) [facility] Work Phone: Start: 11-19-2014 End: 11-19-2014 Follow Up Appt 6 months Follow Up Appt 6 months [facility] Work Phone: Start: 11-19-2014 End: 11-19-2014 MMM MMM [facility] Work Phone: Start: 11-19-2014 End: 11-19-2014 Electrocardiogram, complete EKG (In office) [facility] Work Phone: Start: 11-19-2014 End: 11-19-2014 Follow Up Appt 6 months Follow Up Appt 6 months [facility] Work Phone: Start: 11-19-2014 End: 11-19-2014 MMM MMM [facility] Work Phone: Start: 08-05-2014 End: 08-05-2014 UTILITY MECHANIC UTILITY MECHANIC [facility] Work Phone: Start: 08-05-2014 End: 08-05-2014 Ecg routine ecg w/least 12 lds w/i&r EKG (In office) [facility] Work Phone: Start: 08-05-2014 End: 08-05-2014 Follow Up Appt 3 months Follow Up Appt 3 months [facility] Work Phone: Start: 08-05-2014 End: 08-05-2014 UTILITY MECHANIC UTILITY MECHANIC [facility] Work Phone: Start: 08-05-2014 End: 08-05-2014 Electrocardiogram, complete EKG (In office) [facility] Work Phone: Start: 08-05-2014 End: 08-05-2014 Follow Up Appt 3 months Follow Up Appt 3 months [facility] Work Phone: Start: 04-16-2014 End: 04-16-2014 UTILITY MECHANIC UTILITY MECHANIC [facility] Work Phone: Start: 04-16-2014 End: 04-16-2014 Ecg routine ecg w/least 12 lds w/i&r EKG (In office) [facility] Work Phone: Start: 04-16-2014 End: 04-16-2014 Follow Up Appt 1 year Follow Up Appt 1 year [facility] Work Phone: Start: 04-16-2014 End: 04-16-2014 UTILITY MECHANIC UTILITY MECHANIC [facility] Work Phone: Start: 04-16-2014 End: 04-16-2014 Electrocardiogram, complete EKG (In office) [facility] Work Phone: Start: 04-16-2014 End: 04-16-2014 Follow Up Appt 1 year Follow Up Appt 1 year [facility] Work Phone: Start: 10-20-2013 End: 04-27-2015 *Hepatic Function Panel *Hepatic Function Panel [facility] Work Phone: Start: 10-20-2013 End: 04-27-2015 Lipid panel [AGGREGATE] *Lipid Profile CC PCP [email or web address] Work Phone: Start: 10-20-2013 End: 04-27-2015 *Hepatic Function Panel *Hepatic Function Panel [facility] Work Phone: Start: 10-20-2013 End: 04-27-2015 Lipid panel [AGGREGATE] *Lipid Profile CC PCP [facility] Work Phone: Start: 04-17-2013 End: 04-17-2013 Follow Up Appt 1 year Follow Up Appt 1 year [facility] Work Phone: Start: 04-17-2013 End: 04-17-2013 MMM MMM [facility] Work Phone: Start: 04-17-2013 End: 04-17-2013 Follow Up Appt 1 year Follow Up Appt 1 year [facility] Work Phone: Start: 04-17-2013 End: 04-17-2013 MMM MMM [facility] Work Phone: Start: 10-16-2012 End: 11-11-2012 *Hepatic Function Panel *Hepatic Function Panel [facility] Work Phone: Start: 10-16-2012 End: 10-16-2012 UTILITY MECHANIC UTILITY MECHANIC [facility] Work Phone: Start: 10-16-2012 End: 10-16-2012 Follow Up Appt 6 months Follow Up Appt 6 months [facility] Work Phone: Start: 10-16-2012 End: 11-19-2012 Lipid panel [AGGREGATE] *Lipid Profile CC PCP [facility] Work Phone: Start: 10-16-2012 End: 11-11-2012 *Hepatic Function Panel *Hepatic Function Panel [facility] Work Phone: Start: 10-16-2012 End: 10-16-2012 UTILITY MECHANIC UTILITY MECHANIC [facility] Work Phone: Start: 10-16-2012 End: 10-16-2012 Follow Up Appt 6 months Follow Up Appt 6 months [facility] Work Phone: Start: 10-16-2012 End: 11-19-2012 Lipid panel [AGGREGATE] *Lipid Profile CC PCP [facility] Work Phone: Start: 04-19-2012 End: 04-19-2012 Ecg routine ecg w/least 12 lds w/i&r EKG (In office) [facility] Work Phone: Start: 04-19-2012 End: 04-19-2012 Follow Up Appt 6 months Follow Up Appt 6 months [facility] Work Phone: Start: 04-19-2012 End: 04-19-2012 MMM MMM [facility] Work Phone: Start: 04-19-2012 End: 04-19-2012 Electrocardiogram, complete EKG (In office) [email or web address] Work Phone: Start: 04-19-2012 End: 04-19-2012 Follow Up Appt 6 months Follow Up Appt 6 months [facility] Work Phone: Start: 04-19-2012 End: 04-19-2012 MMM MMM [email or web address] Work Phone: Start: 2012 Pneumococcal Vaccine: 65+ (1 of 1 - PCV) Pneumococcal Vaccine: 65+ (1 of 1 - PCV) [facility] Start: 2012 Screening for osteoporosis Bone Density Screening [facility] Start: 2007 RSV Vaccine (1 - 1-dose 60+ series) RSV Vaccine (1 - 1-dose 60+ series) [facility] Start: 1997 Shingrix Vaccine (1 of 2) Shingrix Vaccine (1 of 2) [facility] Start: 1992 Diabetes Screening Diabetes Screening [facility] Start: 1965 Hepatitis C screening Hepatitis C Screening [facility] Anion gap in Serum or Plasma [facility] BUN/Creatinine ratio [facility] Calcium [Mass/volume ] in Serum or Plasma [facility] Calculus analysis [facility] Carbon dioxide, tota l [Moles/volume] in Central venous blood [facility] Colonoscopy [facility] Creatinine [Mass/vol ume] in Serum or Plasma [facility] Cytology report of B hector fluid Cyto stain [facility] Erythrocyte mean cor puscular volume determination [facility] Glucose [Mass/volume ] in Serum or Plasma [facility] Hematocrit [Volume F raction] of Blood [facility] Hemoglobin [Mass/vol ume] in Blood [facility] Leukocytes [#/volume] in Blood [facility] Mean corpuscular hem oglobin concentration determination [facility] Mean corpuscular hem oglobin determination [facility] Measurement of renal function [facility] Measurement of weigh t of calculus [facility] Neutrophil count [facility] Neutrophil percent d ifferential count [facility] Origin of Stone [facility] Patient Education [facility] Work Phone: Patient referral [facility] Work Phone: Platelets [#/volume] in Blood [facility] Potassium measurement [place] [facility] exam esop hagus double contrast study [facility] Red blood cell count [facility] Red cell distributio n width determination [facility] Serum chloride measurement [facility] Sodium measurement [facility] Specimen color determination [facility] Urea nitrogen [Mass/ volume] in Serum or Plasma [facility] End: 10-04-2024 XR Esophagus Views W contrast PO XR ESOPHAGRAM Radiology Routine Esophagogastric junction outflow obstruction 1 Occurrences starting 09/05/2023 until 10/04/2024 [facility] Work Phone: Comment on above: 1 Occurrences starting 09/05/2023 until 10/04/2024 [facility] Immunizations Immunization Date Immunization Notes Care Provider [facility] 11-23-2022 influenza virus vaccine, unspecified formulation Ita Garcia MD Work Phone: [facility] 10-08-[address] Rui Rea Work Phone: [facility] 06-03-2020 Covid (Pfizer) Dr. Rui bledsoe Work Phone: [facility] 10-20-[address] Rui Rea Work Phone: [facility] 10-20-2017 influenza, seasonal, injectable, preservative free Ita Garcia MD Work Phone: [facility] 10-20-2017 influenza virus vaccine, unspecified formulation Ita Garcia MD Work Phone: [facility] 01-01-2015 tetanus toxoid, redu vesna diphtheria toxoid, and acellular pertussis vaccine, adsorbed Ita Garcia MD Work Phone: [facility] 12-22-2014 tetanus toxoid, redu vesna diphtheria toxoid, and acellular pertussis vaccine, adsorbed Dr. Rui Rea Work Phone: [facility] Payers Date Payer Category Payer Self-pay [id number] 2017 Medicare [employer] [place] [id number] 2017-Present [phone] [address] [place] [address] HMO [id number] 2017 Medicare [id number] Medicare [id number] Unknown [id number] Unknown [id number] Unknown [id number] Unknown [id number] Unknown [id number] Unknown [id number] Unknown [id number] Unknown [id number] Unknown [id number] Unknown [id number] Unknown [id number] Unknown [id number] Unknown [id number] Unknown [id number] Unknown [id number] Social History Date Type Detail Facility Start: 07-05-2021 End: 06-05-2023 Tobacco smoking status GAIS Unknown if ever smoked [facility] Start: 07-20-2018 None [facility] Start: 07-20-2018 Alone [facility] Start: 07-21-2018 Non-smoker [facility] Start: 1945 Sex Assigned At Female [facility] Start: 09-05-2023 End: 07-20-2024 Tobacco smoking status GAIS Never smoked tobacco [facility] Start: 08-31-2023 End: 09-05-2023 Alcohol intake Lifetime non-drinker (finding) [facility] Start: 11-16-2020 End: 08-31-2023 History of Social function [facility] Start: 11-16-2020 End: 08-31-2023 Tobacco use panel [facility] National Score (1-100), lower number is lower risk Not on file [facility] Start: 1945 Sex Assigned At Not on file [facility] Start: 09-05-2023 Tobacco use and exposure Smokeless tobacco non-user [facility] NEGATED: Highlighted row [facility] Medical Equipment Procedure Code Equipment Code Equipment Origin al Text Equipment Identifier Dates Parathyroidectomy Ligation clip, metallic ()[id number] FDA Start: 03-08-2023 Parathyroidectomy Ligation clip, metallic ()[id number] FDA Start: 03-08-2023 Cystoscopy, with retrograde pyelogram, ureteroscopy, laser procedure, and stent inser ([id number]) Polymeric ureteral stent ()[id number] FDA Start: 06-08-2022 Colonoscopy Ligation clip, metallic ()[id number] FDA Start: 06-12-2023 ([id number]) Dual-chamber implantable pacemaker, rate-responsive ()[id number] FDA Start: 01-17-2021 ([id number]) Endocardial paci ng lead ()[id number] FDA Start: 01-17-2021 ([id number]) Endocardial paci ng lead ()[id number] FDA Start: 01-17-2021 ([id number]) Polymeric ureter al stent ()[id number] FDA Start: 06-29-2022 Goals Date Patient Goal Desired Activity /State Functional Status Date Assessment Result Facility 06-08-2022 Functional status Ambulates [facility] Work Phone: Mental Status Date Assessment Result Facility 06-22-2023 Cognitive function Awake;Alert;Appropriat e [facility] Work Phone: 06-12-2023 Cognitive function Voice/Name [facility] Work Phone: 03-08-2023 Cognitive function Level Of Consciousness Drowsy [facility] Work Phone: 03-08-2023 Cognitive function Voice/Name [facility] Work Phone: 06-29-2022 Cognitive function Voice/Name [facility] Work Phone: 06-08-2022 Cognitive function Voice/Name [facility] Work Phone: 06-08-2022 Cognitive function Patient Arnaud ascencio Person;Place;Time [facility] Work Phone: 07-15-2021 Cognitive function Level Of Cons ciousness Awake;Alert;Appropriate;Follow s Commands [facility] Work Phone: Clinical Notes 11-16-2020 to 07-07-2024 Note Date & Type Note Facility 07-07-2024 Radiology Diagnostic study note [facility] Services [address] [place], [place] [address] Esophagus Dual Contrast MR#: [id number] Acct: [id number] Name: SHIRLEY SHULTZ Rep #: [id number] : 1945 F 79 From: Jourdan Sierra MD PCP: Dr. Bria Spencer MD Status: REG CLI Study:Esophagus Dual Contrast Date of Exam: 07/07/24 Exam# [id number] Ordering Dr: Clarisse Walden PROCEDURE: ESOPHAGUS DUAL CONTRAST 07/07/2024 REASON FOR EXAM: DYSPHAGIA TECHNIQUE: The patient ingested barium. Fluoroscopic imaging of the esophagus was performed. 1 minute and 14 seconds of fluoroscopy. 30.89 mGy. COMPARISON: None FINDINGS: The patient ingested barium. No evidence of esophageal obstruction. No evidence of gastroesophageal reflux. The patient ingested a 12 mm tablet the barium without difficulty. The patient tolerated the procedure well. RAD/Esophagus Dual Contrast IMPRESSION: Unremarkable air contrast esophagram. Reading Location: [place] [address] CC: JALEN Walden; Dr. 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 [facility] 07-02-2024 Procedure note [facility] 05-15-2024 Evaluation note Diagnosis Onset Date Resolution Change in bowel habit acute Mar 2024 10:01am Constipation acute May 15, 2024 10:01am Dysphagia acute May 15 10:01am [facility] Work Phone: [phone] Evaluation note* Diagnosis Onset Date Resolution Status Admit Date Change in bowel habit acute Mar 2024 10:01am Constipation acute May 15, 2024 10:01am Dysphagia acute May 15 10:01am Globus sensation acute June 9:26am Melena acute July 17, 2024 9:26am Cough resolved July 17, 2024 9:26am [facility] Work Phone: [phone] NoteHNO ID: [id number] Author: ITA GARCIA MD Service: ? Author Type: Physician Type: Progress Notes Filed: 09/05/2023 15:23 Note Text: SURGICAL SERVICES HISTORY AND PHYSICAL EXAMINATION SERVICE DATE: 09/05/2023 SERVICE TIME: 2:55 PM PRIMARY CARE PHYSICIAN: Rui Rea MD SUBJECTIVE CHIEF COMPLAINT: difficulty swallowing HISTORY OF PRESENT ILLNESS: Ms. Shultz is a 78 year old female with a PMH of atrial fibrillation and sick sinus syndrome (s/p cardiac pacemaker; Flecainide, Metoprolol, Xarelto), anxiety/depression (celexa), lower extremity swelling (lasix), arthritis, chronic back pain (no meds), cystocele/rectocele, diabetes (Januvia), anxiety (Celexa), GERD, hiatal hernia, IRON (intolerant of CPAP), obesity (increased weight with age; at the age of 62; BMI 36) who presents for surgical evaluation. Surgical consultation was requested by the patient's referring physician, Dr. Win John regarding dysphagia. A copy of this consultation note will be provided to the requesting physician(s) by way of shared medical record or letter via [place] mail. The patient reports having been told she has a hiatal hernia at the age of 32 and was told to take OTC reflux medications. She has not taken any reflux medications for many years. Starting in 2021 she began to notice increased difficulty with swallowing that occurs intermittently. She endorses intermittent difficulty swallowing once or twice a week and this can happen as infrequently as two weeks out of the month. When these episodes occur she describes a sensation of a marble getting stuck in her throat and requires her drinking a lot of extra fluid. She has lost 20 pounds over the last one year - this weight loss was intentional and she has been dieting and is not related to the sensation of dysphagia. She denies any change in her diet due to these new symptoms - she can tolerate all types of foods although she does cut the food up in small pieces. She denies reflux and regurgitation or emesis or nausea. Of note, she under went EGD which was WNL. She also underwent manometry which demonstrated EGJOO with concern on Dr. John's part for achalasia. Workup: - EGD ([facility]; 06/12/23): normal esophagus and normal stomach - Manometry (06/22/23): IRP 22.4; 10% premature contractions; 60% rapid contraction with 100% of swallows intact. DCI within normal limits. EGJOO per Hackett Classification - concerning for possible achalasia Social: denies x3 PSHx: cardiac pacemaker placement (2020), cardioversion, cardiac catheterization, TL, detached retina repair, parathyroidectomy PAST MEDICAL HISTORY: PAST MEDICAL HISTORY Diagnosis Date Ambulates with cane Anticoagulant long-term use indication: stroke prevention atrial fibrillation Anxiety and depression Arthritis At risk for stroke [id number] = 3 (HTN, age, female gender) Atrophic vaginitis Back problem Bradycardia Cystocele with rectocele Cystocele with rectocele Diabetes (HCC) Dysphagia Family history of cardiovascular disease Fecal incontinence Generalized anxiety disorder GERD (gastroesophageal reflux disease) Hiatal hernia History of diverticulitis HTN (hypertension) Hypokalemia Lichen sclerosus Mixed hyperlipidemia IRON on CPAP Persistent atrial fibrillation (HCC) diagnosed about 1997; asymptomatic or minimally symptomatic when ventricular rates are under control; treatment with flecainide failed, recurrent arrhythmia despite flecainide and electrical cardioversion(s) Right renal stone Sick sinus syndrome (HCC) Tachy-eric syndrome (HCC) PAST SURGICAL HISTORY: PAST SURGICAL HISTORY Procedure Laterality Date CARDIAC MONITORING CONTINUOUS 10/2020 30-day cardiac monitoring CARDIAC PACEMAKER PLACEMENT HX 01/17/2021 CARDIOVERSION ELECTIVE ARRHYTHMIA INTERNAL SPX 01/2018 CARDIOVERSION ELECTIVE ARRHYTHMIA INTERNAL SPX 04/2019 CARDIOVERSION ELECTIVE ARRHYTHMIA INTERNAL SPX 07/21/2019 CHOLECYSTECTOMY HX 1978 CYSTOSCOPY ECHOCARDIOGRAM 11/01/2020 EGD W/O BRSH SPEC VARICIES INJ 06/12/2023 Dr. John LEFT HEART CATH,PERCUTANEOUS Left 07/29/2008 LIGATE FALLOPIAN TUBE 1982 MANOMETRY ESOPHAGEAL 06/22/2023 [place] PARATHYROIDECTOMY/EXPLORATION PARATHYROIDS REPAIR, DETACHED RETINA, LASER STRESS TEST 2019 FAMILY HISTORY: FAMILY HISTORY Problem Relation Age of Onset Heart Attack Mother Arthritis Mother Angioedema Mother Hypertension Mother other (artthritis) Mother Prostate Cancer Father Breast Cancer Sister Diabetes Brother Heart Failure Brother Heart Attack Brother Prostate Cancer Brother COPD Brother COPD Brother Hypertension Brother Cancer Paternal Grandfather Diabetes Son SOCIAL HISTORY: Social History Tobacco Use Smoking status: Never Smokeless tobacco: Never Substance Use Topics Alcohol use: Never Drug use: Never MEDICATIONS: Current Outpatient Medications Me (more content not included)...[facility]07-17-2024 History of Present illness Narrative* Ita Garcia MD - 09/05/2023 2:54 PM EDT SURGICAL SERVICES HISTORY AND PHYSICAL EXAMINATION SERVICE DATE: 09/05/2023 SERVICE TIME: 2:55 PM PRIMARY CARE PHYSICIAN: Rui Rea MD SUBJECTIVE CHIEF COMPLAINT: difficulty swallowing HISTORY OF PRESENT ILLNESS: Ms. Shultz is a 78 year old female with a PMH of atrial fibrillation and sick sinus syndrome (s/p cardiac pacemaker; Flecainide, Metoprolol, Xarelto), anxiety/depression (celexa), lower extremity swelling (lasix), arthritis, chronic back pain (no meds), cystocele/rectocele, diabetes (Januvia), anxiety (Celexa), GERD, hiatal hernia, IRON (intolerant of CPAP), obesity (increased weight with age; at the age of 62; BMI 36) who presents for surgical evaluation. Surgical consultation was requested by the patient's referring physician, Dr. Win John regarding dysphagia. A copy of this consultation note will be provided to the requesting physician(s) by way of [facility] medical record or letter via [place] mail. The patient reports having been told she has a hiatal hernia at the age of 32 and was told to take OTC reflux medications. She has not taken any reflux medications for many years. Starting in 2021 she began to notice increased difficulty with swallowing that occurs intermittently. She endorses intermittent difficulty swallowing once or twice a week and this can happen as infrequently as two weeks out of the month. When these episodes occur she describes a sensation of a marble getting stuck in her throat and requires her drinking a lot of extra fluid. She has lost 20 pounds over the last one year - this weight loss was intentional and she has been dieting and is not related to the sensation of dysphagia. She denies any change in her diet due to these new symptoms - shecan tolerate all types of foods although she does cut the food up in small pieces. She denies reflux and regurgitation or emesis or nausea. Of note, she under went EGD which was WNL. She also underwent manometry which demonstrated EGJOO with concern on Dr. John's part for achalasia. Workup: - EGD ([facility]; 06/12/23): normal esophagus and normal stomach - Manometry (06/22/23): IRP 22.4; 10% premature contractions; 60% rapid contraction with 100% of swallows intact. DCI within normal limits. EGJOO per Hackett Classification - concerning for possible achalasia Social: denies x3 PSHx: cardiac pacemaker placement (2020), cardioversion, cardiac catheterization, TL, detached retina repair, parathyroidectomy PAST MEDICAL HISTORY: PAST MEDICAL HISTORY Diagnosis Date Ambulates with cane Anticoagulant long-term use indication: stroke prevention atrial fibrillation Anxiety and depression Arthritis At risk for stroke [id number] = 3 (HTN, age, female gender) Atrophic vaginitis Back problem Bradycardia Cystocele with rectocele Cystocele with rectocele Diabetes (HCC) Dysphagia Family history of cardiovascular disease Fecal incontinence Generalized anxiety disorder GERD (gastroesophageal reflux disease) Hiatal hernia History of diverticulitis HTN (hypertension) Hypokalemia Lichen sclerosus Mixed hyperlipidemia IRON on CPAP Persistent atrial fibrillation (HCC) diagnosed about 1997; asymptomatic or minimally symptomatic when ventricular rates are under control; treatment with flecainide failed, recurrent arrhythmia despite flecainide and electrical cardioversion(s) Right renal stone Sick sinus syndrome (HCC) Tachy-eric syndrome (HCC) PAST SURGICAL HISTORY: PAST SURGICAL HISTORY Procedure Laterality Date CARDIAC MONITORING CONTINUOUS 10/2020 30-day cardiac monitoring CARDIAC PACEMAKER PLACEMENT HX 01/17/2021 CARDIOVERSION ELECTIVE ARRHYTHMIA INTERNAL SPX 01/2018 CARDIOVERSION ELECTIVE ARRHYTHMIA INTERNAL SPX 04/2019 CARDIOVERSION ELECTIVE ARRHYTHMIA INTERNAL SPX 07/21/2019 CHOLECYSTECTOMY HX 1977 CYSTOSCOPY ECHOCARDIOGRAM 11/01/2020 EGD W/O BRSH SPEC VARICIES INJ 06/12/2023 Dr. John LEFT HEART CATH,PERCUTANEOUS Left 07/29/2008 LIGATE FALLOPIAN TUBE 1982 MANOMETRY ESOPHAGEAL 06/22/2023 [place] PARATHYROIDECTOMY/EXPLORATION PARATHYROIDS REPAIR, DETACHED RETINA, LASER STRESS TEST 2019 FAMILY HISTORY: FAMILY HISTORY Problem Relation Age of Onset Heart Attack Mother Arthritis Mother Angioedema Mother Hypertension Mother other (artthritis) Mother Prostate Cancer Father Breast Cancer Sister Diabetes Brother Heart Failure Brother Heart Attack Brother Prostate Cancer Brother COPD Brother COPD Brother Hypertension Brother Cancer Paternal Grandfather Diabetes Son SOCIAL HISTORY: Social History Tobacco Use Smoking status: Never Smokeless tobacco: Never Substance Use Topics Alcohol use: Never Drug use: Never MEDICATIONS: Current Outpatient Medications Medication Sig flecainide (TAMBOCOR) 150 mg tablet Take 1 tablet by mouth every 12 hours. JANUVIA 25 mg tablet Take 1 tablet by mouth every afternoon. Clobetasol Propionate 0.05 % lotn Apply to affected area. citalopram (CELEXA) 20 mg tablet Take by mouth once daily. furosemide (LASIX) 40 mg tablet Take 40 mg by mouth once daily. clotrimazole (LOTRIMIN) 1 % external solution metoprolol tartrate, short acting, (LOPRESSOR) 25 mg tablet Take 25 mg by mouth twice daily. Cholecalciferol, Vitamin D3, (VITAMIN D) 1,000 unit cap Take 1,000 Units by mouth once daily. rivaroxaban (XARELTO) 20 mg tablet Take 20 mg by mouth daily with dinner. potassium chloride SR (MICRO-K) 10 mEq CR capsule Take 20 mEq by mouth once daily. (Patient not taking: Reported on 09/05/2023) diclofenac sodium (VOLTAREN) 1 % topical gel Apply 2 g to affected area four times daily. (Patient not taking: Reported on 09/05/2023) No current facility-administered medications for this visit. ALLERGIES: ALLERGIES Allergen Reactions Nitrofurantoin Unknown Trimethoprim GI Upset Bactrim [Sulfametho* GI Upset, Vomiting Codeine GI Upset, Vomiting Loratadine GI Upset, Vomiting Methylprednisolone GI Upset, Vomiting Tolerated prednisone in 2020 Mobic [Meloxicam] Unknown Multaq [Dronedarone] Unknown Penicillins Shortness of Breath COMPLETE REVIEW OF SYSTEMS: Review of Systems Constitutional: Negative for chills, diaphoresis, fever and malaise/fatigue. HENT: Negative for congestion, hearing loss, nosebleeds, sinus pain, sore throat and tinnitus. Eyes: Negative for blurred vision, double vision, pain and redness. Respiratory: Negative for cough, hemoptysis, sputum production, shortness of breath and wheezing. Cardiovascular: Negative for chest pain, palpitations, orthopnea, leg swelling and PND. Gastrointestinal: Negative for abdominal pain, blood in stool, constipation, diarrhea, heartburn, nausea and vomiting. Genitourinary: Negative for dysuria, frequency, hematuria and urgency. Musculoskeletal: Positive for back pain. Negative for falls, joint pain, myalgias and neck pain. Skin: Negative for itching and rash. Neurological: Negative for dizziness, speech change, focal weakness, seizures, loss of consciousness, weakness and headaches. Endo/Heme/Allergies: Does not bruise/bleed easily. Psychiatric/Behavioral: Negative for depression, hallucinations, memory loss, substance abuse and suicidal ideas. The patient is not nervous/anxious and does not have insomnia. OBJECTIVE PHYSICAL EXAM: BP 129/82 Pulse 60 Ht 5' 3 (1.60m) Wt 206 lb 9.6 oz (93.7kg) BMI 36.61 kg/(m^2). Physical Exam Vitals reviewed. Constitutional: Appearance: Normal appearance. She is obese. HENT: Head: Normocephalic and atraumatic. Nose: Nose normal. Eyes: General: No scleral icterus. Extraocular Movements: Extraocular movements intact. Conjunctiva/sclera: Conjunctivae normal. Pupils: Pupils are equal, round, and reactive to light. Cardiovascular: Rate and Rhythm: Normal rate. Pulmonary: Effort: Pulmonary effort is normal. No respiratory distress. Skin: General: Skin is warm and dry. Coloration: Skin is not jaundiced or pale. Neurological: General: No focal deficit present. Mental Status: She is alert and oriented to person, place, and time. Psychiatric: Mood and Affect: Mood normal. Behavior: Behavior normal. DATA: Diagnostic tests reviewed for today's visit: EMR reviewed Plan ASSESSMENT AND PLAN Shirley Shultz is a 78 year old female with a PMH as noted above who presents with dysphagia. 1. Esophagogastric junction outflow obstruction - ICD9: 530.3, ICD10: K22.2 (primary diagnosis) - Today in clinic we had a long discussion regarding her diagnosis of EGJOO and the concern for possible early achalasia. We reviewed the workup to this point. Specifically, her symptoms are occurring about 1-2 times per week but do not occur weekly. She estimates the symptoms are present no more than 4 times/episodes per month. She does not have great concern regarding these symptoms - she states that initially she had a lot of concern regarding the symptoms but feels the symptoms have resolved some. - We discussed that if she does have early achalasia (which I am not certain she does), this can bemanaged/altered/aleviated with certain medications and endoscopic and surgical therapies. We specifically discussed endoscopic Botox injection, pneumatic dilation, POEM procedure, and Heller myotomy.she had many questions and concerns, all of which were addressed. However, at this time I do not think she requires therapy. She knows that if symptoms were to worsen or increase in frequency or severity, she is to call the office and then we will pursue other treatment options. - Have asked her to keep a food journal - If symptoms were to increase/worsen, I would recommend beginning with botox injection and or achalasia balloon dilation. - I am, however, going to obtain an esophagram to assess esophageal motility. - Follow up after esophagram - virtual is okay as she lives far away - XR ESOPHAGRAM 2. Atrial fibrillation, unspecified type (HCC) - ICD9: 427.31, ICD10: I48.91 - Continue current medical management 3. Type 2 diabetes mellitus with other specified complication, without long-term current use of insulin (HCC) - ICD9: 250.80, ICD10: E11.69 - Continue current medical management 4. IRON (obstructive sleep apnea) - ICD9: 327.23, ICD10: G47.33 - Diagnosed with IRON but is not currently treated 5. Class 2 severe obesity with serious comorbidity and body mass index (BMI) of 36.0 to 36.9 in adult, unspecified obesity type (HCC) - ICD9: 278.01, V85.36, ICD10: E66.01, Z68.36 - Discussed importance of working on weight loss as this could be silent reflux Medical Decision Making: Problems: Moderate: New problem with uncertain prognosis and 2+ stable chronic illnesses Data: Unique test result(s) reviewed: 2 Unique test(s) ordered: 1 Discussed management or test w/ external physician/QHCP/source Medical Decision Making Level: 4 - Moderate SIGNATURE: Ita Garcia MD PATIENT NAME: Shirley Shultz DATE: September 05, 2023 TIME: 2:55 PM PAGER/CONTACT #: [id number] [facility] encounter Note * Telephone Encounter - Dominick Leach - 09/04/2023 7:58 AM EDT Reminder call regarding 09/05/2023 new patient appointment. LVM for patient - asked patient to call back to confirm appointment. Unable to My Chart message sent to patient - MyChart not set up. [facility]07[facility] Miscellaneous Notes* Telephone Encounter - Dominick Leach - 09/04/2023 7:58 AM EDT Reminder call regarding 09/05/2023 new patient appointment. LVM for patient - asked patient to call back to confirm appointment. Unable to My Chart message sent to patient - MyChart not set up. documented in this encounterN[facility]04[facility] Procedure [facility]04-23-2024 Procedure [facility]04-23-2024 Procedure [facility]04-23-2024 Procedure [facility]02-14-2024 Discharge summary Author Ryan Townsend [facility] April 04, 2023 9:03pm Note Date/Time April 04, 2023 4:53pm [facility] Medical Records Department [address] [place] [address] Emergency Department Summary 04/04/23 MR#: [id number] Acct: [id number] Name: SHIRLEY SHULTZ Rep #:[id number] : 1945 78 From: Ryan Lawrence PCP: Dr. Bria Spencer MD Status:REG ER Location: ED HPI History of Present Illness Chief Complaint: Nausea/Vomiting [facility] Medical History (Updated 04/04/23 @ 20:[address] Ryan Towsnend, DO) Ambulates with cane Anxiety Arthritis Atrial fibrillation Atrophic vaginitis Back problem Cardiology follow-up encounter Cataracts, bilateral CPAP (continuous positive airway pressure) dependence Cystocele with rectocele Depression Dysphagia Essential (primary) hypertension Family history of cardiovascular disease Family history of diabetes mellitus Fecal incontinence History of atrial fibrillation History of detached retina repair History of diverticulitis History of echocardiogram History of hiatal hernia History of stress test HLD (hyperlipidemia) Hypokalemia Lichen sclerosus Non-smoker IRON (obstructive sleep apnea) Pacemaker Right renal stone Sleep apnea Symptomatic bradycardia Wears dentures Wears glasses Home Medications cholecalciferol (vitamin D3) 25 mcg (1,000 unit) tablet 2,000 unit PO QDAY supplement 07/06/17 [History Last Taken 02/09/21] citalopram 20 mg tablet 20 mg PO DAILY 02/09/21 [History Last Taken 02/09/21] flecainide 150 mg tablet 150 mg PO Q12H #180 tabs 02/23/22 [Rx Last Taken 03/08/23] rivaroxaban 20 mg tablet (Xarelto) 20 mg PO QHS #90 tabs 08/01/22 [Rx Last Taken 03/06/23] metoprolol tartrate 100 mg tablet 100 mg PO BID #180 tabs 09/18/22 [Rx Last Taken 03/08/23] omeprazole 20 mg capsule,delayed release 20 mg PO DAILY 12/20/22 [History Last Taken Unknown] furosemide 40 mg tablet See Rx Instructions .Route .COMPLEX #90 tabs 02/26/23 [Rx Last Taken Unknown] sitagliptin phosphate 25 mg tablet (Januvia) 25 mg PO DAILY 02/27/23 [History Last Taken Unknown] calcitriol 0.25 mcg capsule 0.25 mcg PO DAILY #30 caps 03/08/23 [Rx Last Taken Unknown] calcium carbonate 500 mg-vitamin D3 5 mcg (200 unit) tablet 1 tab PO TID #90 tabs 03/08/23 [Rx Last Taken Unknown] amoxicillin 875 mg-potassium clavulanate 125 mg tablet 1 tab PO BID 7 days #14 tabs 04/04/23 [Rx Last Taken Unknown] ondansetron 4 mg disintegrating tablet 4 mg PO Q8H PRN nausea and vomiting #20 tabs 04/04/23 [Rx Last Taken Unknown] Allergy/AdvReac Type Severity Reaction Status Date / Time dapagliflozin [From Farxiga] Allergy Severe Nausea/Vom/ Verified 04/04/23 16:38 Diarrhea dronedarone [From Multaq] Allergy Severe ANAPHYLAXIS Verified 04/04/23 16:38 [facility] [place] codeine Allergy Intermediate PT UNSURE Verified 04/04/23 16:38 OF REACTION meloxicam [From Mobic] Allergy Intermediate PT UNSURE Verified 04/04/23 16:38 OF REACTION nitrofurantoin Allergy Intermediate PT UNSURE Verified 04/04/23 16:38 OF REACTION Penicillins Allergy Intermediate PT UNSURE Verified 04/04/23 16:38 OF REACTION sulfamethoxazole Allergy Intermediate PT UNSURE Verified 04/04/23 16:38 [From Bactrim] OF REACTION trimethoprim [From Bactrim] Allergy Intermediate PT UNSURE Verified 04/04/23 16:38 OF REACTION metformin AdvReac PT UNSURE Verified 04/04/23 16:38 OF REACTION Family History Father Cancer Prostate cancer Mother Myocardial infarction Arthritis Sister Breast cancer Brother Diabetes CHF (congestive heart failure) Myocardial infarction Son Diabetes Other Family history of cardiovascular disease Family history of diabetes mellitus Surgical History History of cardioversion (07/21/19) History of cholecystectomy (1977) History of cystoscopy History of left heart catheterization (07/29/08) History of permanent cardiac pacemaker placement (01/17/21) History of tubal ligation (1981) Social History Smoking Status: Never smoker alcohol intake: never substance use type: does not use caffeine: No what type of physical activity do you participate in: walking frequency: 5-6 times per week seatbelt use: always do you feel safe at home: Yes additional social history: - retired EXAM Physical Exam Const Vital Signs: 04/04/23 16:38 04/04/23 16:41 04/04/23 18:56 Temperature 96.0 F L 96.0 F L Temperature Source Temporal Temporal Pulse Rate 96 96 84 Respiratory Rate 16 16 18 Blood Pressure 114/87 H 114/87 H 122/77 H Blood Pressure Mean 96 96 92 Pulse Ox 99 99 97 Oxygen Delivery Method Room Air Room Air [facility] Narrative Medical decision making narrative: HISTORY OF PRESENT ILLNESS: 78 old female presents with nausea vomiting. Notes 3 days of nausea and vomiting. She notes episode of diarrhea. Notes diffuse weakness. States when she swallows it feels like there is a marble in her throat. She endorses decreased p.o. intake. She further states she had history of her gallbladder out, tubes tied. Denies any abdominal surgeries. Denies any urinary complaint such as urgency frequency or dysuria. Denies any chest pain or shortness of breath. Notes she was sweaty and vomiting patient was when she tries to drink she has a gurgly sensation. Denies any food impaction or inability to swallow. Denies palpitations REVIEW OF SYSTEMS: Pertinent positives: Nausea, vomiting, difficulty swallowing, epigastric pain Pertinent negatives: Chest pain, shortness of breath, palpitations, focal weakness, PHYSICAL EXAM: Nursing triage notes reviewed, Vital signs reviewed Constitutional: please see [facility] HENT: MMM Eyes: Pupils equal round and reactive to light, Extraocular muscles intact Neck: No stridor, no JVD, full neck ROM Lungs: Clear to auscultation, No wheezing or rales. No increased work of breathing, no conversational dyspnea, no accessory muscle use, no nasal flaring. No respiratory distress noted Heart: Regular rate and rhythm, No murmurs, No rubs and No gallops, 2+ distal pulses (radial, femoral, posterior tibial) in all extremities Abdomen: Soft, there is no tenderness, rigidity, rebound or guarding, no obviousperitoneal signs, no palpable pulsatile abdominal masses, no auscultated abdominal bruit : No CVAT Extremities: No edema Neuro: No focal neurological deficits, cranial nerves II through XII intact, 5/5strength in all extremities. Intact sensation to light touch in all extremities,2+ reflexes bilateral patella tendons. Normal gait. No ataxia. Skin: No rash or lesions noted MEDICAL DECISION MAKING: Chief Complaint: Nausea/vomiting External records reviewed: Imaging reviewed: CT scan from February 2022 shows a 3mm nonobstructing calculus midpole of the right kidney otherwise no significant findings Factors affecting care: Hypertension, hyperlipidemia, IRON, permanent pacemaker, A-fib Social determinants of health: n elderly History obtained from others: none Consults: none [facility] Narrative: Patient was initially hemodynamically stable, afebrile and nontoxic-appearing. Exam with a nonperitonitic abdomen. I considered the following differential diagnosis: AAA, small bowel obstruction,abdominal perforation, appendicitis, pancreatitis, hepatobiliary pathology (acute cholecystitis), mesenteric ischemia, pathology (ie nephrolithiasis, pyelonephritis). Atypical presentation of ACS, pneumonia, esophageal perforation. Although the patient's abdominal exam was not consistent with acute surgical abdomen at her age history abdominal surgeries made her high risk. I obtained [place] lab and imaging workup to further elucidate the etiology patient complaints. Treat the patient symptomatically with IV fluids, nausea medicine and pain medicine in the form of morphine. ALL IMAGES (IF OBTAINED) HAVE BEEN PERSONALLY REVIEWED AND INTERPRETED BY MYSELF. EKG with ventricular paced rhythm, right axis deviation, prolonged QT, similar morphology to EKG on March 08, 2023 no obvious STEMI or Sgarbossa criteria CBC with no leukocytosis, no anemia or thrombocytopenia BMP without significant electrolyte abnormality, no evidence of metabolic acidosis, baseline CKD, no evidence of endorgan hypoperfusion with a nonelevatedanion gap Lactate is wnl indicating no end-organ hypoperfusion and/or hypoxia. LFTs show no evidence of hepatobiliary pathology. High-sensitivity troponin is negative, no evidence of myocardial ischemia Lipase is wnl indicating no pancreatic inflammation. Urinalysis shows evidence of inflammation however patient no urinary symptoms tosuggest UTI is likely asymptomatic bacteriuria will not send for culture. CT scan abdomen pelvis shows evidence of colitis. Will give Augmentin. Patient had reported penicillin allergy however she tolerate Augmentin well. Will give her 7 days of Augmentin will also give Zofran and close PCP follow-up. The patient and/or family, caregivers express understanding. The patient and/orfamily, caregivers agrees with the plan. Shared decision making: I will have a discussion with the patient and or visitors regarding risk/benefits of further testing or admission. They will be made aware of of the risk/benefits inherent in this decision they will be given the opportunity to voice understanding. Total critical care time today provided was at least 0 minutes. This excludes separately billable procedures. Critical care time (if documented) is secondary to the patient having high probability of clinically significant/life threatening deterioration in the patient's condition which required my urgent intervention. Impression: 1. Abdominal pain 2. Nausea vomiting 3. Colitis 4. CKD Dispo: Discharge home This note was generated with Quipper dictation software. It may contain incorrectwords, spelling, and punctuation that were not noted in review of the chart prior to signing. Lab Data Labs: Laboratory Results - last 24 hr 04/04/23 04/04/23 04/04/23 16:45 17:05 18:55 WBC 9.4 RBC 5.16 Hgb 16.3 H Hct 48.3 H MCV 93.6 MCH 31.6 MCHC 33.7 RDW Std Deviation 45.3 H RDW Coeff of Inderjit 13.2 Plt Count 188 MPV 10.7 Immature Gran % (Auto) 0.600 Neut % (Auto) 80.1 H Lymph % (Auto) 11.6 L Irion % (Auto) 7.1 Eos % (Auto) 0.3 Baso % (Auto) 0.3 Absolute Neuts (auto) 7.5 Absolute Lymphs (auto) 1.09 Nucleated RBC % 0 Sodium 137 Potassium 4.2 Chloride 107 Carbon Dioxide 28.0 Anion Gap 2 L BUN 23 H Creatinine 1.58 H Est GFR (MDRD) Af Amer 41 L Est GFR (MDRD) Non-Af 34 L BUN/Creatinine Ratio 14.6 Glucose 163 H Lactic Acid 1.5 Calcium 8.9 Total Bilirubin 1.00 Direct Bilirubin 0.28 AST 34 ALT 62 H Alkaline Phosphatase 113 Troponin I High Sens 16 Total Protein 7.1 Albumin 3.9 Globulin 3.2 Lipase 44 Urine Color Yellow Urine Clarity Sl. Cloudy Urine pH 5.0 Ur Specific Holland 1.020 Urine Protein 100 H Urine Glucose (UA) Normal Urine Ketones Negative Urine Occult Blood 25 H Urine Nitrite Negative Urine Bilirubin Negative Urine Urobilinogen Normal Ur Leukocyte Esterase 500 H Urine RBC 0-5 SEEN Urine WBC 10-25 SEEN Ur Squamous Epith Cells 5-10 SEEN Urine Bacteria 1+ Hyaline Casts 5-10 SEEN Urine Mucus 0 SEEN Radiography Diagnostic Testing: Clinical Impression(s) from Imaging Studies Abdomen/Pelvis CT 04/04/23 16:54 IMPRESSION: Colitis with wall thickening on the right could be infectious or inflammatory. No obstruction. Hepatomegaly. Prior cholecystectomy. No biliary dilatation. Right lower lung atelectasis and small pleural effusion. Electronically Signed: Neftaly Beyer MD at 19:16 EST , Chest X-Ray 04/04/23 16:57 IMPRESSION: 1. Transvenous pacer leads without change. 2. Stable borderline cardiomegaly without congestive failure. 3. Subtle interstitial prominence at the RIGHT lung base and suspicion of blunting of the posterior costophrenic sulcus. Subtle RIGHT lower lobe infiltrate is a consideration. Electronically Signed: Juan Carlos Jansen MD at 17:10 EST , Discharge Plan Triage Chief Complaint: Nausea/Vomiting ED Provider: Ryan Townsend Dx/Rx/DC Orders Clinical Impression: Colitis, Nausea & vomiting Instructions: ED Understanding Colitis Prescriptions: New amoxicillin-pot clavulanate 875-125 mg tablet 1 tab PO BID 7 Days Qty: 14 0RF ondansetron 4 mg tablet,disintegrating 4 mg PO Q8H PRN (Reason: nausea and vomiting) Qty: 20 0RF No Action cholecalciferol (vitamin D3) 1,000 unit tablet 2,000 unit PO QDAY omeprazole 20 mg capsule,delayed release(DR/EC) 20 mg PO DAILY Januvia 25 mg tablet 25 mg PO DAILY citalopram 20 mg Tablet 20 mg PO DAILY flecainide 150 mg tablet 150 mg PO Q12H Qty: 180 3RF Xarelto 20 mg tablet 20 mg PO QHS Qty: 90 3RF Hold Instructions: pacemaker procedure Patient Comments: HOLD 2 DAYS PRE-OP AND 2 DAYS POST-OP PER [facility] Rx Instructions: must administer with evening meal metoprolol tartrate 100 mg tablet 100 mg PO BID Qty: 180 3RF furosemide 40 mg tablet See Rx Instructions .ROUTE .COMPLEX Qty: 90 3RF Dose Instruction: TAKE 1 TABLET BY MOUTH EVERY DAY NEEDED FOR SHORTNESS OF BREATH Rx Instructions: TAKE 1 TABLET BY MOUTH EVERY DAY NEEDED FOR SHORTNESS OF BREATH calcitriol 0.25 mcg capsule 0.25 mcg PO DAILY Qty: 30 0RF calcium carbonate-vitamin D3 500 mg-5 mcg (200 unit) tablet 1 tab PO TID Qty: 90 0RF Primary Care Provider: Bria Spencer Referrals: Bria Spencer MD [Primary Care Provider] - Activity Restrictions/Additional Instructions: Thank you for trusting us with your care today! Please take Tylenol (2 pills, 650 mg), ibuprofen (2 pills, 400 mg) every 6 hoursas needed for pain and fever control. Please take antibiotic as prescribed. Please complete entire course. Please take Zofran as needed for nausea vomiting control Please return to the emergency department if your symptoms change or worsen. Please follow with your primary care physician for further outpatient evaluationand management. Disposition Disposition: Home, Self Care What to do if you have Problems For any increased pain, shortness of breath, bleeding, nausea or vomiting, chestpain, or any unexpected problems, contact your Primary Care Provider. Call [facility] ([phone]) or report to the closest Emergency Room. Call 911 if necessary. 04/04/232102 <Electronically signed by Ryan Townsend DO> Cosigner Signature (if applicable): CC: Dr. Bria Spencer MD ~ Signed [facility] Work Phone: 1(840) 583-809101-18-2024 History and physical note Author Azar Hammonds [facility] March 08, 2023 7:40am Note Date/Time March 08, 2023 7 :40am [facility] Medical Records Department [address] [place] [id number] History & Physical Exam 03/08/23 0739 MR#: [id number] Acct: [id number] Name: SHIRLEY SHULTZ Rep #:[id number] : 1945 77 From: Azar Hickman PCP: Dr. Bria Spencer MD Status:[facility] Location: [place] [address] History and Physical Date of Admission: 03/08/23 Date of Service: 02/27/23 MR#: [id number] Acct: [id number] Name: SHIRLEY SHULTZ Rep #: [id number] : 1945 Provider: Dr. Azar Hammonds MD Age/Sex: 77/F Location: [facility] Status: Signed Intake Vital Signs 12/20/2313:56 02/27/2407:06 Height 5 ft 4 in 5 ft 4 in Weight: 218 lb 213 lb BMI 37.4 36.6 BP 117/70 110/73 Blood Pressure Location Rt brachial Rt brachial Position Sitting Sitting Respiration 17 17 Pulse 67 60 Pulse Source Monitor Monitor Temp 97.2 F L Temp Source Temporal Pulse Oximetry (%) 97 96 Oxygen Delivery Method room air room air Intake Visit Reasons: DISCUSS SURGERY Chief Complaint: discuss surgery Is patient in pain?: No Allergies dronedarone [From Multaq] Allergy (Severe, Verified 02/27/23 08:07) [facility] [place] [facility] (Intermediate, Verified 02/27/23 08:07) PT UNSURE OF REACTIONmeloxicam [From Mobic] Allergy (Intermediate, Verified 02/27/23 08:07) PT UNSURE OF REACTIONnitrofurantoin Allergy (Intermediate, Verified 02/27/23 08:07) PT UNSURE OF REACTIONPenicillins Allergy (Intermediate, Verified 02/27/23 08:07) PT UNSURE OF REACTIONsulfamethoxazole [From Bactrim] Allergy (Intermediate, Verified 02/27/23 08:07) PT UNSURE OF REACTIONtrimethoprim [From Bactrim] Allergy (Intermediate, Anmvndae14/09/24 08:07) PT UNSURE OF REACTION Medications cholecalciferol (vitamin D3) 25 mcg (1,000 unit) tablet 1,000 unit PO QDAY supplement 07/06/17 [History Confirmed 02/27/23] citalopram 20 mg tablet 20 mg PO DAILY 02/09/21 [History Confirmed 02/27/23] flecainide 150 mg tablet 150 mg PO Q12H #180 tabs 02/23/22 [Rx Confirmed 02/27/23] rivaroxaban 20 mg tablet (Xarelto) 20 mg PO QHS #90 tabs 08/01/22 [Rx Confirmed 02/27/23] metoprolol tartrate 100 mg tablet 100 mg PO BID #180 tabs 09/18/22 [Rx Confirmed 02/27/23] omeprazole 20 mg capsule,delayed release 20 mg PO DAILY 12/20/22 [History Confirmed 02/27/23] furosemide 40 mg tablet See Rx Instructions .Route .COMPLEX #90 tabs 02/26/23 [Rx Confirmed 02/27/23] sitagliptin phosphate 25 mg tablet (Januvia) 25 mg PO DAILY 02/27/23 [History Confirmed 02/27/23] [facility] Medical History Ambulates with cane Anxiety Arthritis Atrial fibrillation Atrophic vaginitis Back problem Cardiology follow-up encounter Cataracts, bilateral CPAP (continuous positive airway pressure) dependence Cystocele with rectocele Depression Dysphagia Essential (primary) hypertension Family history of cardiovascular disease Family history of diabetes mellitus Fecal incontinence History of atrial fibrillation History of detached retina repair History of diverticulitis History of echocardiogram History of hiatal hernia History of stress test HLD (hyperlipidemia) Hypokalemia Lichen sclerosus Non-smoker IRON (obstructive sleep apnea) Pacemaker Right renal stone Sleep apnea Symptomatic bradycardia Wears dentures Wears glasses Surgical History History of cardioversion (07/21/19) History of cholecystectomy (1977) History of cystoscopy History of left heart catheterization (07/29/08) History of permanent cardiac pacemaker placement (01/17/21) History of tubal ligation (1981) Family History Father Cancer Prostate cancerMother Myocardial infarction ArthritisSister Breast cancerBrother Diabetes CHF (congestive heart failure) Myocardial infarctionSon DiabetesOther Family history of cardiovascular disease Family history of diabetes mellitus Social History Smoking Status: Never smoker alcohol intake: never substance use type: does not use caffeine: No what type of physical activity do you participate in: walking frequency: 5-6 times per week seatbelt use: always do you feel safe at home: Yes additional social history: - retired HPI HPI HPI: Patient is a 77-year-old female who presents for evaluation of a diagnosis of primary hyperparathyroidism. They are referred from Dr. Spencer. Her last visitwas 12/20/2022. She returns for conversation about an operation. In the interimshe reports her only health history changes that she has been started on Januvia. She specifically denies any symptoms of recent kidney stones. Later in the visit she does remark that she has had frequent sensations as if there bismark marble in her throat but after swallowing a couple of times this disappears. She confirms that there is a history of gastroesophageal reflux disease but this has been a chronic issue that is overall been under good control. Lastly at the conclusion of the visit she remarks of some bone ache that can be debilitating and wishes to know whether this is likely related to her hyperparathyroidism. Below is recapitulated from patient's prior visit for ease of review: Patient confirms that she had a history of kidney stones requiring lithotripsy in June of this year by Dr. Shay which occasion the work-up for this diagnosis. Patient has a history of osteopenia per DEXA imaging from October 2021. Patient has no history of pathologic fractures. Patient has no history of frequent dental caries or chipped teeth. Patient has no history of brittle fingernails. Patient has a chronic history of GERD since her 30s. Patient has no history of hypertension. Additional symptoms include: Some joint aches and weakness (patient cites specific example of unable to open jars). She states that she has been told she will need a knee replacement approximately 2 years ago but is interested in having this issue dealt with first. She also confirms some recentdifficulty concentrating but denies any significant memory difficulty. Patient has no history of prior radiation exposure. Patient has no family history of other endocrinopathies. Patient does not have a diet high in dairy and cites that even her milk consumption is only oat milk. Patient's current labs are calcium: 10.1 mg/dL (11/08/2022) max of 10.3 on 2022, Vitamin D: 32.1 ng/mL (11/08/2022), PTH: 168.4 pg/mL (11/08/2022) range of 68.4- 232.9 (09/15/2022) Current medications include: Vitamin D supplementation but no calcium supplementation. Imaging has been done thyroid ultrasound on 11/24/2022 followed by sestamibi on 12/14/2022. Ultrasound was read as negative thyroid ultrasound examination but sestamibi imaging showed persistent increase in tracer distribution definedin the left anterior neck caudal to the inferior pole of the thyroid lobe whichmay represent parathyroid adenoma. Patient is prescribed Xarelto for history of atrial fibrillation and pacemaker placement managed by the [facility]. ROS General General: Yes fatigue; No weight change, appetite, colon cancer, breast cancer or weakness HEENT HEENT: Yes difficulty swallowing; No eye injury, eye surgery, swollen glands or hoarseness Endo Endocrine: Yes diabetes mellitus; No thyroid disease, thyroid cancer, Hair loss, heat intolerance or cold intolerance Skin Skin: No rash or changing moles Musc Musculoskeletal: Yes arthritis; No back problems, rheumatoid arthritis, gout or joint pain Cardio Cardiovascular: Yes pacemaker and atrial fibrillation; No murmur, heart disease, high blood pressure, heart attack, heart stent, palpitations, shortness of breat with exertion or chest pain Psych Psychiatric: No depression, anxiety or hearing voices Resp Respiratory: No shortness of breath, Yes sleep apnea, No cough, No COPD, No asthma, No emphysema and No wheezing Gastro Gastrointestinal: No abdominal pain, No nausea or vomiting, No diarrhea, No constipation, No blood in stool, Yes acid reflux, No hemorrhoids, No ulcers, No gallbladder problem and No black,tarry stools Eric Hematologic: Yes blood thinners, No blood disorders, No bleeding, No anemia and No blood clots Neuro Neurologic: No system reviewed and no additional complaints, except as documented, No as per HPI, No abnormal gait, No abnormal hearing, No abnormal movements, No abnormal speech, No behavioral changes, No burning sensations, No confusion, No convulsions, No disequilibrium, No dizziness, No localized weakness, No frequent falls, No headache(s), No lack of coordination, No loss ofvision, No memory loss, Yes numbness, No other visual disturbances, No radicularpain, No restless legs, No sensory deficit, No syncope, Yes tingling, No tremor(s), No weakness and No other Exam Const General: cooperative Orientation: alert, awake and oriented x3 Other: Slow-moving and slow speaking Neck Other: Supple, no nodularity Inferior to the bilateral inferior poles of the thyroid gland identify hypoechoic areas that are candidates for parathyroid lesions. With color Doppler on the left there does appear to even be a feeding polar vessel. Assessment and Plan Assessment and Plan (1) Hyperparathyroidism, primary: Status: Acute Comment: This is a 77-year-old female that is diagnosed with primary hyperparathyroidism after a bout of kidney stones in June 2022. 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 Subsequent PTH and calcium testing showed that patient's calcium is at the higher end of normal with a significantly elevated PTH between 160 and 230. This is occurred in the settingof repleted vitamin D. I held a lengthy discussion with Ms. Healy today regarding first how the diagnosis of hyperparathyroidism is made, the symptoms that may be associated, and then the steps that followed towards localization. I have shared with her the results of both her ultrasound and her sestamibi imaging. I performed my own bedside ultrasound exam and identified 2 potential parathyroid adenomas in the right superior and left inferior positions. The left inferior position would correlate with patient's sestamibi imaging. With this positive localization study I have informed Ms. Shultz that we have both asurgical indication (her prior calcium oxalate kidney stones and evidence of osteopenia with DEXA imaging) and a surgical target. She is interested in proceeding with surgery, however, she shares a concern about family being unavailable to her over the next couple of months and wishes to postpone surgeryuntil February. I have shared with her that we will need to update her H&P afterthe first of the year and then put her on the schedule. In the meantime we willlook to obtain approval to hold her Xarelto 48 hours pre and post procedure. During today's visit patient related that she is now on Januvia and has had recent complaints of some globus sensation which may be due to reflux as well assome new bone pain. I do suspect the latter is related to her hyperparathyroidism. She has had updated labs that suggest a worsening of her PTH elevation but her calcium is actually in the range of normal. This all remains in the setting of a normal vitamin D level. Today I spent time reiterating the diagnosis of primary hyperparathyroidism and that this likely isable to be traced back to a single adenoma. Prior sestamibi imaging suggest that this would localize to the left side, however, in my independent ultrasoundimaging identified 2 suspicious hypoechoic structures on the inferior aspect of the bilateral thyroid lobes. Therefore, I do have a suspicion for possible double adenoma. As such I have counseled Mrs. Shultz that she may require 4 gland exploration and a overnight stay. I also discussed with her that this would increase her risk for hypoparathyroidism and shared how the risk would be proportional for nerve injury as well. This discussion was facilitated with theuse of hand drawings as well to illustrate the relevant anatomy. At the conclusion of our conversation patient stated that she felt like she had a better understanding of this issue and that it was not as complicated as she hadfirst thought. Is also noted that cardiology has provided clearance to hold anticoagulation 48 hours pre and post surgery. Plan: Parathyroidectomy with intraoperative nerve and PTH monitoring at first mutuallyavailable date. Will plan for outpatient disposition, however, have a low threshold to proceed with a overnight observation. I have examined the patient and the H&P has been reviewed. There are no clinicalchanges since date of exam. Patient confirms that her complaints of dizziness remain absent. She otherwise feels healthy. She denies any questions, but I take the opportunity anyhow to review procedure and post procedure expectations. Will now proceed to the operating room for planned parathyroidectomy with intraoperative PTH and nerve monitoring. 03/08/23 0740 <Electronically signed by Azar Hammonds MD> Cosigner Signature (if applicable): CC: Dr. Bria Spencer MD; Dr. Azar Hammonds MD~ Signed [facility] Work Phone: 1(900) 541-329805-11-[address] Mejia [facility] June 29, 2022 10:15am Note Date/Time June 29, 2022 8:52a m [facility] Medical Records Department [address] [place] [address] Instructions for Home/Discharge Instructions 06/29/22 0852 MR#: [id number] Acct: [id number] Name: SHIRLEY SHULTZ Rep #:[id number] : 1945 77 From: Ninfa Hickman PCP: Dr. Bria Spencer MD Status[place] Discharge Instructions Diet Discharge Diet: No restrictions Activity Discharge Activity: Return to Normal Activity May resume sexual activity in: No Restrictions Dressing / Incision Call your doctor if you observe: Fever of 101 or Higher, Inability to urinate and Inability to have a bowel movement Follow Up Care Please Follow Up With: Ninfa Mejia MD When: call for appointment Test Results: Test results from this visit will be discussed in further detail at your follow- up appointment, if applicable. Discharge Plan Admission Attending Provider: Ninfa Mejia Primary Care Provider: Bria Spencer Discharge Orders/Prescriptions Prescriptions: New ondansetron HCl [ondansetron HCl] 8 mg tablet 8 mg PO Q8H PRN PRN (Reason: Nausea) 7 Days Qty: 20 0RF oxycodone-acetaminophen [Percocet] 5-325 mg tablet 1 tab PO Q8H PRN (Reason: pain) 3 Days Qty: 10 0RF cephalexin [cephalexin] 500 mg capsule 500 mg PO Q12 3 Days Qty: 6 0RF Continued cholecalciferol (vitamin D3) 1,000 unit tablet 1,000 unit PO QDAY citalopram 20 mg Tablet 20 mg PO DAILY phenazopyridine [Pyridium] 200 mg tablet 200 mg PO TID PRN PRN (Reason: Bladder Spasms) 7 Days Qty: 30 0RF metoprolol tartrate 100 mg tablet 100 mg PO BID Qty: 180 3RF furosemide 40 mg tablet 40 mg PO .PRN PRN (Reason: SOB) Qty: 90 3RF Xarelto 20 mg tablet 20 mg PO QHS Qty: 90 3RF Hold Instructions: pacemaker procedure Rx Instructions: must administer with evening meal flecainide 150 mg tablet 150 mg PO Q12H Qty: 180 3RF Referrals / Follow Up: Bria Spencer MD [Primary Care Provider] - Disposition Disposition (needs filled in before D/C Order can be placed): Home, Self Care 06/29/22 1015<Electronically signed by Ninfa Mejia MD>Ninfa Mejia MD CC: Dr. Bria Spencer MD ~ Signed [facility] Work Phone: 1(226) 290-650305-11-2023 Procedure [facility] 06-08-[address] Mejia [facility] June 08, 2022 8:38am Note Date/Time June 08, 2022 8:3 5am [facility] Medical Records Department [address] [place] [address] Instructions for Home/Discharge Instructions 06/08/22 0834 MR#: [id number] Acct: [id number] Name: SHARONDASHIRLEY Rep #:[id number] : 1945 77 From: Ninfa Hickman PCP: Dr. Bria Spencer MD Status:REG MTC Discharge Instructions Diet Discharge Diet: No restrictions Activity Discharge Activity: Return to Normal Activity Dressing / Incision Call your doctor if you observe: Fever of 101 or Higher, Inability to urinate and Inability to have a bowel movement Follow Up Care Please Follow Up With: Ninfa Mejia MD When: call office for appt Test Results: Test results from this visit will be discussed in further detail at your follow- up appointment, if applicable. Discharge Plan Admission Attending Provider: Ninfa Mejia Primary Care Provider: Bria Spencer Discharge Orders/Prescriptions Prescriptions: New oxycodone-acetaminophen [Percocet] 5-325 mg tablet 1 tab PO Q8H PRN (Reason: pain) 3 Days Qty: 10 0RF cephalexin [cephalexin] 500 mg capsule 500 mg PO Q12 3 Days Qty: 6 0RF phenazopyridine [Pyridium] 200 mg tablet 200 mg PO TID PRN PRN (Reason: Bladder Spasms) 7 Days Qty: 30 0RF Continued cholecalciferol (vitamin D3) 1,000 unit tablet 1,000 unit PO QDAY citalopram 20 mg Tablet 20 mg PO DAILY metoprolol tartrate 100 mg tablet 100 mg PO BID Qty: 180 3RF furosemide 40 mg tablet 40 mg PO .PRN PRN (Reason: SOB) Qty: 90 3RF Xarelto 20 mg tablet 20 mg PO QHS Qty: 90 3RF Hold Instructions: pacemaker procedure Rx Instructions: must administer with evening meal flecainide 150 mg tablet 150 mg PO Q12H Qty: 180 3RF Referrals / Follow Up: Bria Spencer MD [Primary Care Provider] - Disposition Disposition (needs filled in before D/C Order can be placed): Home, Self Care 06/08/22 0838<Electronically signed by Ninfa Mejia MD>Ninfa Mejia MD CC: Dr. Bria Spencer MD ~ Signed [facility] Work Phone: [phone]) 210-459911-29-2021 Evaluation note* Diagnosis Onset Date Resolution Status Essential (primary) hypertension acute Persistent atrial fibrillation acute History of permanent cardiac pacemaker placement January 17, 2021 chronic Persistent atrial fibrillation acute Symptomatic bradycardia acut e History of permanent cardiac pacemaker placement January 17, 2021 chronic Tachy-eric syndrome resolve d Pelvic pain acute [facility] Work Phone: 1(854) 858-939511-29-2021 Evaluation note* Diagnosis Onset Date Resolution Status Essential (primary) hypertension acute Persistent atrial fibrillation acute History of permanent cardiac pacemaker placement January 17, 2021 chronic Persistent atrial fibrillation acute Symptomatic bradycardia acut e History of permanent cardiac pacemaker placement January 17, 2021 chronic Tachy-eric syndrome resolve d Pelvic pain acute COVID-19 acute [facility] Work Phone: [phone]) 667-441411-29-2021 Evaluation note* Diagnosis Onset Date Resolution Status Essential (primary) hypertension acute Persistent atrial fibrillation acute History of permanent cardiac pacemaker placement January 17, 2021 chronic Persistent atrial fibrillation acute Symptomatic bradycardia acut e History of permanent cardiac pacemaker placement January 17, 2021 chronic Tachy-eric syndrome resolve d [facility] Work Phone: [phone]) 738-901211-29-2021 Evaluation note* Diagnosis Onset Date Resolution Status Persistent atrial fibrillation acute Symptomatic bradycardia acut e History of permanent cardiac pacemaker placement January 17, 2021 chronic Tachy-eric syndrome resolve d [facility] Work Phone: [phone]) 358-959211-29-2021 Evaluation note* Diagnosis Onset Date Resolution Status Symptomatic bradycardia acut e History of permanent cardiac pacemaker placement January 17, 2021 chronic Persistent atrial fibrillation chronic Tachy-eric syndrome resolve d Essential (primary) hypertension chronic History of permanent cardiac pacemaker placement January 17, 2021 chronic Persistent atrial fibrillation chronic Symptomatic bradycardia acut e History of permanent cardiac pacemaker placement January 17, 2021 chronic Persistent atrial fibrillation chronic Tachy-eric syndrome resolve d [facility] Work Phone: [phone]) [phone] Evaluation note* Diagnosis Onset Date Resolution Status Essential (primary) hypertension chronic History of permanent cardiac pacemaker placement January 17, 2021 chronic Persistent atrial fibrillation chronic Symptomatic bradycardia acut e History of permanent cardiac pacemaker placement January 17, 2021 chronic Persistent atrial fibrillation chronic Tachy-eric syndrome resolve d History of permanent cardiac pacemaker placement January 17, 2021 chronic Persistent atrial fibrillation chronic Tachy-eric syndrome resolve d [facility] Work Phone: [phone]) [phone] Evaluation note* Diagnosis Onset Date Resolution Status History of permanent cardiac pacemaker placement January 17, 2021 chronic Persistent atrial fibrillation chronic Tachy-eric syndrome resolve d [facility] Work Phone: [phone]) 216-290911-29-2021 Evaluation note* Diagnosis Onset Date Resolution Status History of permanent cardiac pacemaker placement January 17, 2021 chronic Persistent atrial fibrillation chronic Tachy-eric syndrome resolve d Monilial intertrigo acute Encounter for routine gyneco logical examination noneactive [facility] Work Phone: [phone]) 512-449811-29-2021 Evaluation note* Diagnosis Onset Date Resolution Status History of permanent cardiac pacemaker placement January 17, 2021 chronic Persistent atrial fibrillation chronic Tachy-eric syndrome resolve d Monilial intertrigo acute Encounter for routine gyneco logical examination noneactive Symptomatic bradycardia acut e History of permanent cardiac pacemaker placement January 17, 2021 chronic Persistent atrial fibrillation chronic Tachy-eric syndrome resolve d [facility] Work Phone: [phone]) [phone] Evaluation note* Diagnosis Onset Date Resolution Status Monilial intertrigo acute Encounter for routine gyneco logical examination noneactive Symptomatic bradycardia acut e History of permanent cardiac pacemaker placement January 17, 2021 chronic Persistent atrial fibrillation chronic Tachy-eric syndrome resolve d Essential (primary) hypertension chronic History of permanent cardiac pacemaker placement January 17, 2021 chronic Persistent atrial fibrillation [facility] Work Phone: [phone]) [phone] Evaluation note* Diagnosis Onset Date Resolution Status Essential (primary) hypertension chronic History of permanent cardiac pacemaker placement January 17, 2021 chronic Persistent atrial fibrillation [facility] Work Phone: [phone]) 214-603909-28-2021 NoteHNO ID: [id number] Author: Johana Knight APRN.HEALTH AND SAFETY CONSULTANT Service: ? Author Type: Nurse Practitioner Type: [...] analgesia. - Discussed expected course of illness Joahna Knight APRN.[facility]* Diagnosis Onset Date Resolution Status Pelvic pain acute Encounter for routine gyneco logical examination noneactive Monilial intertrigo noneacti ve COVID-19 acute Essential (primary) hypertension acute Persistent atrial fibrillation acute History of permanent cardiac pacemaker placement January 17, 2021 chronic Persistent atrial fibrillation acute Symptomatic bradycardia acut e History of permanent cardiac pacemaker placement January 17, 2021 chronic Tachy-eric syndrome resolve d [facility] Work Phone: Evaluation note* Diagnosis Onset Date Resolution Status Hyperparathyroidism, primary acute [facility] Work Phone: Evaluation note* Diagnosis Onset Date Resolution Status Hyperparathyroidism, primary acute Hyperparathyroidism, primary acute [facility] Work Phone: Evaluation note* Diagnosis Onset Date Resolution Status Hyperparathyroidism, primary acute Hyperparathyroidism, primary acute Hypoparathyroidism 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 acute Status post parathyroidectomy acute [facility] Work Phone: Evaluation note* Diagnosis Onset Date Resolution Status Hyperparathyroidism, primary acute Hypoparathyroidism 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 acute Status post parathyroidectomy acute Dysphagia acute [facility] Work Phone: Evaluation note* Diagnosis Esophagogastric junction outflow obstruction- Primary Atrial fibrillation, unspecified type (HCC) Type 2 diabetes mellitus with other specified complication, without long-term current use of insulin (HCC) IRON (obstructive sleep apnea) Obstructive sleep apnea (adult) (pediatric) Class 2 severe obesity with serious comorbidity and body mass index (BMI) of 36.0 to 36.9 in adult, unspecified obesity type (HCC) documented in this encounter [facility] Author Win John [facility] June 12, 2023 7:02am Note Date/Time June 12, 2023 7:0 2am [facility] Medical Records Department [address] [place] [address] History & Physical Exam 06/12/23 0702 MR#: [id number] Acct: [id number] Name: SHIRLEY SHULTZ Rep #:[id number] : 1945 78 From: Win vasques MD PCP: Dr. Bria Spencer MD Status:REG [facility] Location: [place] [address] History and Physical Date of Admission: 06/12/23 Intake Vital Signs 04/04/2415:38 05/21/2407:30 Height 5 ft 4 in 5 ft 4 in Weight: 202 lb BMI 34.7 BP 98/68 Blood Pressure Location Rt brachial Position Sitting Respiration 16 Intake Visit Reasons: C-Scope gastroenteritis and colitis Chief Complaint: scopes Workers Compensation Analyst Required: No Is patient in pain?: Yes (epigastric) Allergies dapagliflozin [From Farxiga] Allergy (Severe, Verified 05/21/23 08:30) Nausea/Vom/Diarrheadronedarone [From Multaq] Allergy (Severe, Verified 05/21/23 08:30) [facility] [place] All[facility] (Intermediate, Verified 05/21/23 08:30) PT UNSURE OF REACTIONmeloxicam [From Mobic] Allergy (Intermediate, Verified 05/21/23 08:30) PT UNSURE OF REACTIONnitrofurantoin Allergy (Intermediate, Verified 05/21/23 08:30) PT UNSURE OF REACTIONPenicillins Allergy (Intermediate, Verified 05/21/23 08:30) PT UNSURE OF REACTIONsulfamethoxazole [From Bactrim] Allergy (Intermediate, Verified 05/21/23 08:30) PT UNSURE OF REACTIONtrimethoprim [From Bactrim] Allergy (Intermediate, Juxrrnix50/01/24 08:30) PT UNSURE OF REACTIONmetformin Adverse Reaction (Verified 05/21/23 08:30) PT UNSURE OF REACTION Medications cholecalciferol (vitamin D3) 25 mcg (1,000 unit) tablet 2,000 unit PO QDAY supplement 07/06/17 [History Confirmed 05/21/23] citalopram 20 mg tablet 20 mg PO DAILY 02/09/21 [History Confirmed 05/21/23] flecainide 150 mg tablet 150 mg PO Q12H #180 tabs 02/23/22 [Rx Confirmed 05/21/23] rivaroxaban 20 mg tablet (Xarelto) 20 mg PO QHS #90 tabs 08/01/22 [Rx Confirmed 05/21/23] metoprolol tartrate 100 mg tablet 100 mg PO BID #180 tabs 09/18/22 [Rx Confirmed 05/21/23] omeprazole 20 mg capsule,delayed release 20 mg PO DAILY 12/20/22 [History Confirmed 05/21/23] furosemide 40 mg tablet See Rx Instructions .Route .COMPLEX #90 tabs 02/26/23 [Rx Confirmed 05/21/23] sitagliptin phosphate 25 mg tablet (Januvia) 25 mg PO DAILY 02/27/23 [History Confirmed 05/21/23] calcitriol 0.25 mcg capsule 0.25 mcg PO DAILY #30 caps 03/08/23 [Rx Confirmed 05/21/23] calcium carbonate 500 mg-vitamin D3 5 mcg (200 unit) tablet 1 tab PO TID #90 tabs 03/08/23 [Rx Confirmed 05/21/23] ondansetron 4 mg disintegrating tablet 4 mg PO Q8H PRN nausea and vomiting #20 tabs 04/04/23 [Rx Confirmed 05/21/23] [facility] Medical History (Updated 05/21/23 @ 08:[address] Win John MD) Ambulates with cane Anxiety Arthritis Atrial fibrillation Atrophic vaginitis Back problem Cardiology follow-up encounter Cataracts, bilateral CPAP (continuous positive airway pressure) dependence Cystocele with rectocele Depression Dysphagia Essential (primary) hypertension Family history of cardiovascular disease Family history of diabetes mellitus Fecal incontinence History of atrial fibrillation History of detached retina repair History of diverticulitis History of echocardiogram History of hiatal hernia History of stress test HLD (hyperlipidemia) Hypokalemia Lichen sclerosus Non-smoker IRON (obstructive sleep apnea) Pacemaker Right renal stone Sleep apnea Symptomatic bradycardia Wears dentures Wears glasses Surgical History History of cardioversion (07/21/19) History of cholecystectomy (1977) History of cystoscopy History of left heart catheterization (07/29/08) History of permanent cardiac pacemaker placement (01/17/21) History of tubal ligation (1981) Family History Father Cancer Prostate cancerMother Myocardial infarction ArthritisSister Breast cancerBrother Diabetes CHF (congestive heart failure) Myocardial infarctionSon DiabetesOther Family history of cardiovascular disease Family history of diabetes mellitus Social History Smoking Status: Never smoker alcohol intake: never substance use type: does not use caffeine: No what type of physical activity do you participate in: walking frequency: 5-6 times per week seatbelt use: always do you feel safe at home: Yes additional social history: - retired HPI HPI HPI: Patient is a 78-year-old female here for dysphagia and colitis. The patient wasrecently in the emergency room for right-sided abdominal pain in March and was found to have right-sided colitis. The patient reports she is not having any blood in her stool but she still does have right-sided abdominal pain a few times a week. She is not having any diarrhea. She also reports she has been having dysphagia. She reports that she feels like liquid gurgles down and slowly passes. She says this occasionally happens with food as well. She does have acid reflux and does not take any medications for it. ROS General General: Yes fatigue; No weight change, appetite, colon cancer, breast cancer or weakness HEENT HEENT: Yes difficulty swallowing; No eye injury, eye surgery, swollen glands or hoarseness Endo Endocrine: Yes diabetes mellitus; No thyroid disease, thyroid cancer, Hair loss, heat intolerance or cold intolerance Skin Skin: No rash or changing moles Musc Musculoskeletal: Yes arthritis; No back problems, rheumatoid arthritis, gout or joint pain Cardio Cardiovascular: Yes pacemaker and atrial fibrillation; No murmur, heart disease, high blood pressure, heart attack, heart stent, palpitations, shortness of breat with exertion or chest pain Psych Psychiatric: No depression, anxiety or hearing voices Resp Respiratory: No shortness of breath, Yes sleep apnea, No cough, No COPD, No asthma, No emphysema and No wheezing Gastro Gastrointestinal: No abdominal pain, No nausea or vomiting, No diarrhea, No constipation, No blood in stool, Yes acid reflux, No hemorrhoids, No ulcers, No gallbladder problem and No black,tarry stools Eric Hematologic: Yes blood thinners, No blood disorders, No bleeding, No anemia and No blood clots Neuro Neurologic: No system reviewed and no additional complaints, except as documented, No as per HPI, No abnormal gait, No abnormal hearing, No abnormal movements, No abnormal speech, No behavioral changes, No burning sensations, No confusion, No convulsions, No disequilibrium, No dizziness, No localized weakness, No frequent falls, No headache(s), No lack of coordination, No loss ofvision, No memory loss, Yes numbness, No other visual disturbances, No radicularpain, No restless legs, No sensory deficit, No syncope, Yes tingling, No tremor(s), No weakness and No other Exam Const General: cooperative Orientation: alert and oriented x3 HENMT Head: normal to inspection Neck Neck: normal visual inspection and full ROM Chest Chest palpation & inspection: normal inspection of the chest Resp Effort & Inspection: normal respiratory effort Auscultation: clear to auscultation bilaterally Cardio Rate: regular rate Rhythm: regular rhythm GI Inspection: non-distended Palpation: soft and nontender Skin General: no rashes or lesions noted Neuro General: patient alert and patient oriented x3 Extrem General: full ROM Psych Appearance: grossly normal Mental Status: mental status grossly normal Assessment and Plan Assessment and Plan (1) Colitis: Status: Inactive (2) Dysphagia: Status: Acute Orders: Orders Colonoscopy Today EGD Today Plan The patient had right-sided colitis in the emergency room. I would like to perform a colonoscopy to do biopsies and evaluate the area. Patient is also having dysphagia and I discussed EGD with possible dilation or biopsies. I explained endoscopy in detail to the patient. I explained the risks including but not limited to stroke or heart attack with anesthesia, perforation of the GItract, bleeding, infection. I explained that any of these could necessitate further emergency surgery. I discussed the increased risk of perforation and bleeding with dilation. I will also have her hold her blood thinners for 3 days. The patient understands and all questions were answered sufficiently. The patient wishes to proceed with procedure. Win John MD Pager: [facility] [address] [place] [address] [address] [place] [address] Office: I have examined the patient and the H&P has been reviewed. There are no clinicalchanges since date of exam. 06/12/23 0702 <Electronically signed by Win John MD> Cosigner Signature (if applicable): CC: Dr. Win John MD; Dr. Bria Spencer MD~ Signed [facility] Work Phone: Hospital Discharge instructions Additional Instructions [facility] Additional Instructions [facility] Hospital Discharge instructions Additional Instructions Thank you for trusting us with your care today! Please take Tylenol (2 pills, 650 mg), ibuprofen (2 pills, 400 mg) every 6 hours as needed for pain and fever control. Please take antibiotic as prescribed. Please complete entire course. Please take Zofran as needed for nausea vomiting control Please return to the emergency department if your symptoms change or worsen. Please follow with your primary care physician for further outpatient evaluation and management.[facility] Work Phone: Reason for referral (narrative)* Diagnostic Procedure Only (Routine) - Authorized Specialty Diagnoses / Procedures Referred By Contac t Referred To Contact XR IMAGING Diagnoses Esophagogastric junction outflow obstruction Procedures XR ESOPHAGRAM RADIOLOGIC EXAM ESOPHAGUS SINGLE CONTRAST STUDY Ita Garcia MD 1 [facility] [address] [place] [address] [place] [address] Referral ID Status Reason Start Date Expiration Date Visits Requested Visits Authorized [id number] Authorized Auto-Generat ed Referral 09/05/2023 10/04/2024 1 1 [facility] Summary Purpose Family History No Family History Records Found Relationship Condition Age at Onset Recorded Date/T emilio Not Specified Family history of ca rdiovascular disease Unknown Family history of diabetes mellitus Unkno wn father Malignant neoplasm Unknown mother Myocardial infarction Unknown Arthritis Unknown sister Malignant neoplasm of breast Unknown brother Diabetes mellitus Unknown Congestive heart failure Unknown Myocardial infarction Unknown son Diabetes mellitus Unknown Advance Directives No Advanced Directives Records Found Advance Directive Response Recorded Date/ Time Advance Directives No December 12:25pm Living Will No February 10 021 1:45am Power of Telephone Recorder No February 10, 2021 1:45am Advance Directive Response Recorded Date/ Time Advance Directives No December 12:25pm Living Will No July 15, 2021 1 0:36pm Power of Telephone Recorder No July 15, 2021 10:36pm Advance Directive Response Recorded Date/ Time Advance Directives No December 12:25pm Living Will No October 07 2 10:00am Power of Telephone Recorder No October 07 2 022 10:00am Advance Directive Response Recorded Date/ Time Advance Directives No December 11:25am Living Will No October 07 9:00am Power of Telephone Recorder No October 07 2 022 9:00am Advance Directive Response Recorded Date/ Time Advance Directives No December 12:25pm Living Will No June 15, 2022 2:31pm Power of Telephone Recorder No June 15 2:31pm Advance Directive Response Recorded Date/ Time Advance Directives No December 11:25am Living Will No June 15, 2022 1:31pm Power of Telephone Recorder No June 15 1:31pm Advance Directive Response Recorded Date/ Time Advance Directives No December 11:25am Living Will No April 04 2 024 6:55pm Power of Telephone Recorder No April 04, 2023 6:55pm Advance Directive Response Recorded Date/ Time Advance Directives No December 12:25pm Living Will No June 05, 2023 1:53pm Power of Telephone Recorder No June 04 1:53pm Advance Directive Response Recorded Date/ Time Advance Directives No December 12:25pm Chief Complaint and Reason for Visit Chief Complaint 1M FU 3 mos remote PPM f/u 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 Reason for Visit Essential (primary) hypertension Persistent atrial fibrillation History of permanent cardiac pacemaker placement Persistent atrial fibrillation Symptomatic bradycardia History of permanent cardiac pacemaker placement Tachy-eric syndrome Pelvic pain Chief Complaint 1M FU 3 mos remote PPM f/u 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 Reason for Visit Essential (primary) hypertension Persistent atrial fibrillation History of permanent cardiac pacemaker placement Persistent atrial fibrillation Symptomatic bradycardia History of permanent cardiac pacemaker placement Tachy-eric syndrome Pelvic pain Chief Complaint 1M FU 3 mos remote PPM f/u 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 COVID 19 general illness Reason for Visit Essential (primary) hypertension Persistent atrial fibrillation History of permanent cardiac pacemaker placement Persistent atrial fibrillation Symptomatic bradycardia History of permanent cardiac pacemaker placement Tachy-eric syndrome Pelvic pain COVID-19 Chief Complaint 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 COVID 19 general illness Appt changed from 07/27, pt had COVID 3 mos remote PPM f/u LOWER EXTREMITY Reason for Visit Pelvic pain Encounter for routine gynecological examination Monilial intertrigo COVID-19 Essential (primary) hypertension Persistent atrial fibrillation History of permanent cardiac pacemaker placement Persistent atrial fibrillation Symptomatic bradycardia History of permanent cardiac pacemaker placement Tachy-eric syndrome Chief Complaint Appt changed from 07/27, pt had COVID 3 mos remote PPM f/u LOWER EXTREMITY SPRAIN RT ANKLE Reason for Visit Essential (primary) hypertension Persistent atrial fibrillation History of permanent cardiac pacemaker placement Persistent atrial fibrillation Symptomatic bradycardia History of permanent cardiac pacemaker placement Tachy-eric syndrome Chief Complaint LOWER EXTREMITY SPRAIN RT ANKLE X-rays REMOTE CHECK EPIGASTRIC PAIN, REGURGITATION OF WATER Reason for Visit Persistent atrial fi brillation Symptomatic bradycardia History of permanent cardiac pacemaker placement Tachy-eric syndrome Chief Complaint SPRAIN RT ANKLE X-rays REMOTE CHECK EPIGASTRIC PAIN, REGURGITATION OF WATER 6 M FU PPM f/u @ 9AM PPM f/u program AV search off and auto capture hematuria GROSS HEMATURIA GROSS HEMATURIA Reason for Visit Symptomatic bradycar cami History of permanent cardiac pacemaker placement Persistent atrial fibrillation Tachy-eric syndrome Essential (primary) hypertension History of permanent cardiac pacemaker placement Persistent atrial fibrillation Symptomatic bradycardia History of permanent cardiac pacemaker placement Persistent atrial fibrillation Tachy-eric syndrome Chief Complaint X-rays REMOTE CHECK EPIGASTRIC PAIN, REGURGITATION OF WATER 6 M FU PPM f/u @ 9AM PPM f/u program AV search off and auto capture hematuria GROSS HEMATURIA GROSS HEMATURIA Reason for Visit Symptomatic bradycar cami History of permanent cardiac pacemaker placement Persistent atrial fibrillation Tachy-eric syndrome Essential (primary) hypertension History of permanent cardiac pacemaker placement Persistent atrial fibrillation Symptomatic bradycardia History of permanent cardiac pacemaker placement Persistent atrial fibrillation Tachy-eric syndrome Chief Complaint EPIGASTRIC PAIN, REG URGITATION OF WATER 6 M FU PPM f/u @ 9AM PPM f/u program AV search off and auto capture hematuria GROSS HEMATURIA GROSS HEMATURIA 3 mos remote PPM f/u Reason for Visit Essential (primary) hypertension History of permanent cardiac pacemaker placement Persistent atrial fibrillation Symptomatic bradycardia History of permanent cardiac pacemaker placement Persistent atrial fibrillation Tachy-eric syndrome History of permanent cardiac pacemaker placement Persistent atrial fibrillation Tachy-eric syndrome Chief Complaint hematuria GROSS HEMATURIA GROSS HEMATURIA 3 mos remote PPM f/u CYSTO BILAT URETEROSCOPY RT LASER RT STENT POSS BI Reason for Visit History of permanent cardiac pacemaker placement Persistent atrial fibrillation Tachy-eric syndrome Chief Complaint GROSS HEMATURIA 3 mos remote PPM f/u CYSTO BILAT URETEROSCOPY RT LASER RT STENT POSS BI RT CYSTO, URETEROSCOPY, LASER, BASKET EXTRAC Reason for Visit History of permanent cardiac pacemaker placement Persistent atrial fibrillation Tachy-eric syndrome Chief Complaint 3 mos remote PPM f/u CYSTO BILAT URETEROSCOPY RT LASER RT STENT POSS BI RT CYSTO, URETEROSCOPY, LASER, BASKET EXTRAC 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 Reason for Visit History of permanent cardiac pacemaker placement Persistent atrial fibrillation Tachy-eric syndrome Monilial intertrigo Encounter for routine gynecological examination Chief Complaint 3 mos remote PPM f/u CYSTO BILAT URETEROSCOPY RT LASER RT STENT POSS BI RT CYSTO, URETEROSCOPY, LASER, BASKET EXTRAC 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 remote 3mos PPM f/u Reason for Visit History of permanent cardiac pacemaker placement Persistent atrial fibrillation Tachy-eric syndrome Monilial intertrigo Encounter for routine gynecological examination Symptomatic bradycardia History of permanent cardiac pacemaker placement Persistent atrial fibrillation Tachy-eric syndrome Chief Complaint CYSTO BILAT URETEROS COPY RT LASER RT STENT POSS BI RT CYSTO, URETEROSCOPY, LASER, BASKET EXTRAC 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 remote 3mos PPM f/u 1 Y FU Reason for Visit Monilial intertrigo Encounter for routine gynecological examination Symptomatic bradycardia History of permanent cardiac pacemaker placement Persistent atrial fibrillation Tachy-eric syndrome Essential (primary) hypertension History of permanent cardiac pacemaker placement Persistent atrial fibrillation Chief Complaint 1 Y FU E21.3 Hyperparathyroidism, unspecified TYPE 2 DM Hyperparathyroidism, unspecified Reason for Visit Essential (primary) hypertension History of permanent cardiac pacemaker placement Persistent atrial fibrillation Chief Complaint Pacer Check Remote E21.3 Hyperparathyroidism, unspecified TYPE 2 DM Hyperparathyroidism, unspecified HYPERPARATHYROIDISM Reason for Visit Hyperparathyroidism, primary Chief Complaint Pacer Check Remote E21.3 Hyperparathyroidism, unspecified TYPE 2 DM Hyperparathyroidism, unspecified HYPERPARATHYROIDISM DISCUSS SURGERY Parathyroidectomy w/IONM & PTH davida Parathyroidectomy w/IONM & PTH davida Reason for Visit Hyperparathyroidism, primary Hyperparathyroidism, primary Chief Complaint Pacer Check Remote E21.3 Hyperparathyroidism, unspecified TYPE 2 DM Hyperparathyroidism, unspecified HYPERPARATHYROIDISM DISCUSS SURGERY Parathyroidectomy w/IONM & PTH davida PREOP Parathyroidectomy w/IONM & PTH davida Parathyroidectomy 03/08 Reason for Visit Hyperparathyroidism, primary Hyperparathyroidism, primary 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 Chief Complaint TYPE 2 DM Hyperparathyroidism, unspecified HYPERPARATHYROIDISM Pacer Check Remote DISCUSS SURGERY Parathyroidectomy w/IONM & PTH davida PREOP Parathyroidectomy w/IONM & PTH davida Parathyroidectomy 03/08 VOMITING Reason for Visit Hyperparathyroidism, primary Hyperparathyroidism, primary 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 Chief Complaint Pacer Check Remote DISCUSS SURGERY Parathyroidectomy w/IONM & PTH davida PREOP Parathyroidectomy w/IONM & PTH davida Parathyroidectomy 03/08 VOMITING C-Scope gastroenteritis and colitis Pacer Check Remote Reason for Visit Hyperparathyroidism, primary 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 Dysphagia Chief Complaint Admit Date PAIN IN SHOULDERS March 07, 2024 1 1:01am Irregular BM May 15, 2024 10: 01am Pacer Check Remote May 26, 2024 4:21 am DYSPHAGIA July 01, 2024 12:57 pm Reason for Visit Admit Date Change in bowel habit May 15, 2024 1 0:01am Constipation May 15, 2024 10: 01am Dysphagia May 15, 2024 10: 01am Chief Complaint Admit Date Irregular BM May 15, 2024 10: 01am Pacer Check Remote May 26, 2024 4:21 am DYSPHAGIA July 01, 2024 12:57 pm DYSPHAGIA July 07, 2024 9:08a m Chief Complaint Admit Date Irregular BM May 15, 2024 10: 01am Pacer Check Remote May 26, 2024 4:21 am DYSPHAGIA July 01, 2024 12:57 pm DYSPHAGIA July 07, 2024 9:08a m 6 WK FU July 17, 2024 9:26a m E-ORDER July 17, 2024 10:09 am Reason for Visit Admit Date Change in bowel habit May 15, 2024 1 0:01am Constipation May 15, 2024 10: 01am Dysphagia May 15, 2024 10: 01am Globus sensation July 17, 2024 9:26a m Melena July 17, 2024 9:26a m Cough July 17, 2024 9:26a m Chief Complaint Admit Date Irregular BM May 15, 2024 10: 01am Pacer Check Remote May 26, 2024 4:21 am DYSPHAGIA July 01, 2024 12:57 pm DYSPHAGIA July 07, 2024 9:08a m 6 WK FU July 17, 2024 9:26a m E-ORDER July 17, 2024 10:09 am Pacer Check Remote August 25, 2024 4:22a m Additional Source Comments INFORMATION SOURCE (unrecogn ized section and content) DATE CREATED AUTHOR 03/25/2021 [facility] DATE CREATED AUTHOR AUTHOR'S ORGANIZ ATION 09/07/2023 [facility] DATE CREATED AUTHOR AUTHOR'S ORGANIZ ATION 09/05/2024 [facility] Goals (unrecognized section and content) Goals may be documented in a n alternate sectionGoals may be documented in an alternate sectionGoals may be documented in an alternate sectionGoals may be documented in an alternate sectionGoals may be documented in an alternate sectionGoals may be documented in an alternate sectionGoals may be documented in an alternate sectionGoals may be documented in an alternate sectionGoals may be documented in an alternate sectionGoals may be documented in an alternate sectionGoals may be documented in an alternate sectionGoals may be documented in an alternate sectionGoals may be documented in an alternate sectionGoals may be documented in an alternate sectionGoals may be documented in an alternate sectionGoals may be documented in an alternate sectionGoals may be documented in an alternate sectionGoals may be documented in an alternate sectionGoals may be documented in an alternate sectionGoals may be documented in an alternate section Care Teams (unrecognized sec tion and content) Team Status: Active Member Role Status Dates Dr. Rui Rea MD Family Provider Active Dr. Rui Rea MD Primary Care Provider Active Team Status: Inactive Member Role Status Dates Dr. Rui Rea MD Primary Care Provider, Referring Provider Active Sergio Abebe HTML WEB DEVELOPER, HTML WEB DEVELOPER-C Attending Provider Active Team Status: Inactive Member Role Status Dates Dr. Rui Rea MD Primary Care Provider, Referring Provider Active Anu Albright Attending Provider Active Team Status: Inactive Member Role Status Dates Dr. Rui Rea MD Primary Care Provider Active Dr. Reynaldo Thapa MD Attending Provider Active Dr. Tami Chung DPM Referring Provider Active Team Status: Inactive Member Role Status Dates Dr. Rui Rea MD Primary Care Provider Active Anu Albright Active Dr. Reynaldo Thapa MD Attending Provider, Referring Pro vider Active Team Status: Inactive Member Role Status Dates Dr. Rui Rea MD Primary Care Provider Active Dr. Osbaldo Hou DO Attending Provider, Referrin g Provider Active Team Status: Inactive Member Role Status Dates Dr. Rui Rea MD Primary Care Provider Active Dr. Bria Spencer MD Attending Provider Active Team Status: Inactive Member Role Status Dates Dr. Rui Rea MD Primary Care Provider Active Dr. Ninfa Mejia MD Attending Provider, Referring P rovider Active Team Status: Active Member Role Status Dates Dr. Rui Rea MD Primary Care Provider Active Dr. Ninfa Mejia MD Attending Provider, Referring P rovider Active Team Status: Active Member Role Status Dates Dr. Rui Rea MD Family Provider Active Team Status: Inactive Member Role Status Dates Dr. Rui Rea MD Referring Provider Active Anu Albright Attending Provider Active Team Status: Inactive Member Role Status Dates Dr. Rui Rea MD Primary Care Provider Active Dr. Bria Spencer MD Attending Provider, Referring P rovider Active Team Status: Active Member Role Status Dates Dr. Rui Rea MD Family Provider Active Dr. Bria Spencer MD Primary Care Provider Active Team Status: Inactive Member Role Status Dates Anu Albright Active Dr. Reynaldo Thapa MD Attending Provider, Referring Pro vider Active Team Status: Inactive Member Role Status Dates Dr. Ninfa Mejia MD Attending Provider, Referring P rovider Active Dr. Bria Spencer MD Primary Care Provider Active Team Status: Inactive Member Role Status Dates Dr. Bria Spencer MD Primary Care Provider Active Dr. Ninfa Mejia MD Attending Provider, Referring P rovider Active Team Status: Inactive Member Role Status Dates Dr. Rui Rea MD Referring Provider Active Ellen Wilson HTML WEB DEVELOPER, HTML WEB DEVELOPER-C Attending Provider Active Dr. Bria Spencer MD Primary Care Provider Active Team Status: Inactive Member Role Status Dates Dr. Bria Spencer MD Primary Care Provider Active Ellen Wilson HTML WEB DEVELOPER, HTML WEB DEVELOPER-C Attending Provider, Referring Provider Active Team Status: Inactive Member Role Status Dates Anu Albright Attending Provider Active Dr. Bria Spencer MD Primary Care Provider Active Team Status: Active Member Role Status Dates Dr. Rui Rea MD Family Provider Active Dr. Valerie Garber DO Primary Care Provider Active Team Status: Inactive Member Role Status Dates Dr. Rui Rea MD Referring Provider Active Dr. Reynaldo Thapa MD Attending Provider Active Dr. Bria Spencer MD Primary Care Provider Active Team Status: Inactive Member Role Status Dates Dr. Valerie Garber DO Primary Care Provide r, Attending Provider, Referring Provider Active Team Status: Inactive Member Role Status Dates Dr. Bria Spencer MD Primary Care Prov ider, Attending Provider, Referring Provider Active Team Status: Active Member Role Status Dates Dr. Bria Spencer MD Primary Care Prov ider, Attending Provider, Referring Provider Active Team Status: Inactive Member Role Status Dates Dr. Bria Spencer MD Primary Care Provider, Referrin g Provider Active Dr. Azar Hammonds MD Attending Provider Active Team Status: Inactive Member Role Status Dates Dr. Bria Spencer MD Primary Care Provider Active Dr. Reynaldo Thapa MD Attending Provider Active Team Status: Active Member Role Status Dates Dr. Bria Spencer MD Primary Care Provider Active Dr. Azar Hammonds MD Attending Provide r, Referring Provider, Other Provider Active Team Status: Inactive Member Role Status Dates Dr. Bria Spencer MD Primary Care Provider Active Dr. Azar Hammonds MD Attending Provider, Referring P rovider Active Team Status: Active Member Role Status Dates Dr. Bria Spencer MD Primary Care Provider Active Dr. Reynaldo Thapa MD Attending Provider Active Dr. Azar Hammonds MD Referring Provider Active Team Status: Inactive Member Role Status Dates Dr. rBia Spencer MD Primary Care Provider Active Dr. Reynaldo Thapa MD Attending Provider, Referring Pro vider Active Team Status: Inactive Member Role Status Dates Dr. Bria Spencer MD Primary Care Provider Active Dr. Ryan Townsend DO Emergency Provider Active Team Status: Inactive Member Role Status Dates Dr. Bria Spencer MD Primary Care Provider, Referrin g Provider Active Dr. Win John MD Attending Provider Active Team Status: Active Member Role Status Dates Dr. Bria Spencer MD Primary Care Provider, Referrin g Provider Active Dr. Win John MD Attending Provider, Other Provider Active Team Status: Inactive Member Role Status Dates Dr. Bria Spencer MD Primary Care Provider Active Dr. Ryan Townsend DO Attending Provider, Emergency P rovider Active Medical Chemist Relationship Specialty Start Date End Date Rui Rea MD [address] [place], [place] [address] PCP - General Family Medicine 05/29/17 Reynaldo Thapa MD [address] [place] [address] [place] [address] Specialty Emergency Manager Cardiology 12/21/20 Medical Chemist Relationship Specialty Start Date End Date Rui Rea MD [address] [place], [place] [id number] PCP - General Family Medicine 05/29/17 Reynaldo Thapa MD [address] [place] [address] Specialty Emergency Manager Cardiology 12/21/20 Team Status: Active Member Role Status Dates Dr. Bria Spencer MD Primary Care Provider Active Team Status: Inactive Member Role Status Dates Dr. Bria Spencer MD Primary Care Provider Active Start: March 07, 2024 End: March 07, 2024 Dr. Bria Spencer MD Attending Provider Active Start: March 07, 2024 End: March 07, 2024 Dr. Bria Spencer MD Referring Provider Active Start: March 07, 2024 End: March 07, 2024 Team Status: Inactive Member Role Status Dates Dr. Bria Spencer MD Primary Care Provider Active Start: May 15, 2024 End: May 15, 2024 Dr. Bria Spencer MD Referring Provider Active Start: May 15, 2024 End: May 15, 2024 Clarisse Walden NP-C Attending Provider Active Start: May 15, 2024 End: May 15, 2024 Team Status: Inactive Member Role Status Dates Dr. Bria Spencer MD Primary Care Provider Active Start: May 26, 2024 End: May 26, 2024 Dr. Reynaldo Thapa MD Attending Provider Active S tart: May 26, 2024 End: May 26, 2024 Dr. Reynaldo Thapa MD Referring Provider Active S tart: May 26, 2024 End: May 26, 2024 Team Status: Inactive Member Role Status Dates Dr. Bria Spencer MD Primary Care Provider Active Start: July 01, 2024 End: July 01, 2024 Clarisse Walden NP-C Attending Provider Active Start: July 01, 2024 End: July 01, 2024 Clarisse Walden NP-C Referring Provider Active Start: July 01, 2024 End: July 01, 2024 Team Status: Inactive Member Role Status Dates Dr. Bria Spencer MD Primary Care Provider Active Start: July 07, 2024 End: July 07, 2024 Clarisse Walden NP-C Attending Provider Active Start: July 07, 2024 End: July 07, 2024 Clarisse Walden NP-C Referring Provider Active Start: July 07, 2024 End: July 07, 2024 Team Status: Inactive Member Role Status Dates Dr. Bria Spencer MD Primary Care Provider Active Start: July 17, 2024 End: July 17, 2024 Dr. Bria Spencer MD Referring Provider Active Start: July 17, 2024 End: July 17, 2024 Clarisse Walden NP-C Attending Provider Active Start: July 17, 2024 End: July 17, 2024 Team Status: Active Member Role Status Dates Dr. Bria Spencer MD Primary Care Provider Active Start: July 17, 2024 CARMEN CaballeroC Attending Provider Active Start: July 17, 2024 Clarisse Walden NP-C Referring Provider Active Start: July 17, 2024 Team Status: Inactive Member Role Status Dates Dr. Bria Spencer MD Primary Care Provider Active Start: July 17, 2024 End: July 17, 2024 Clarisse Walden NP-C Attending Provider Active Start: July 17, 2024 End: July 17, 2024 Clarisse Walden NP-C Referring Provider Active Start: July 17, 2024 End: July 17, 2024 Team Status: Inactive Member Role Status Dates Dr. Bria Spencer MD Primary Care Provider Active Start: July 18, 2024 End: July 18, 2024 Dr. Bria Spencer MD Attending Provider Active Start: July 18, 2024 End: July 18, 2024 Dr. Bria Spencer MD Referring Provider Active Start: July 18, 2024 End: July 18, 2024 Team Status: Active Member Role Status Dates Dr. Bria Spencer MD Primary Care Provider Active Start: July 18, 2024 Dr. Bria Spencer MD Attending Provider Active Start: July 18, 2024 Dr. Bria Spencer MD Referring Provider Active Start: July 18, 2024 Team Status: Active Member Role/Relationship Status Dates Dr. Bria Spencer MD Primary Care Provider Active Team Status: Inactive Member Role/Relationship Status Dates Dr. Bria Spencer MD Primary Care Provider Active Start: May 15, 2024 End: May 15, 2024 Dr. Bria Spencer MD Referring Provider Active Start: May 15, 2024 End: May 15, 2024 JALEN Caballero Attending Provider Active Start: May 15, 2024 End: May 15, 2024 Team Status: Inactive Member Role/Relationship Status Dates Dr. Bria Spencer MD Primary Care Provider Active Start: May 26, 2024 End: May 26, 2024 Dr. Reynaldo Thapa MD Attending Provider Active S tart: May 26, 2024 End: May 26, 2024 Dr. Reynaldo Thapa MD Referring Provider Active S tart: May 26, 2024 End: May 26, 2024 Team Status: Inactive Member Role/Relationship Status Dates Dr. Bria Spencer MD Primary Care Provider Active Start: July 01, 2024 End: July 01, 2024 Clarisse Walden HTML WEB DEVELOPER-C Attending Provider Active Start: July 01, 2024 End: July 01, 2024 Clarisse Walden HTML WEB DEVELOPER-C Referring Provider Active Start: July 01, 2024 End: July 01, 2024 Team Status: Inactive Member Role/Relationship Status Dates Dr. Bria Spencer MD Primary Care Provider Active Start: July 07, 2024 End: July 07, 2024 Clarisse Walden HTML WEB DEVELOPER-C Attending Provider Active Start: July 07, 2024 End: July 07, 2024 Clarisse Walden HTML WEB DEVELOPER-C Referring Provider Active Start: July 07, 2024 End: July 07, 2024 Team Status: Inactive Member Role/Relationship Status Dates Dr. Bria Spencer MD Primary Care Provider Active Start: July 17, 2024 End: July 17, 2024 Dr. Bria Spencer MD Referring Provider Active Start: July 17, 2024 End: July 17, 2024 Clarisse Walden NP-C Attending Provider Active Start: July 17, 2024 End: July 17, 2024 Team Status: Inactive Member Role/Relationship Status Dates Dr. Bria Spencer MD Primary Care Provider Active Start: July 17, 2024 End: July 17, 2024 Clarisse Walden NP-C Attending Provider Active Start: July 17, 2024 End: July 17, 2024 Clarisse Walden HTML WEB DEVELOPER-C Referring Provider Active Start: July 17, 2024 End: July 17, 2024 Team Status: Inactive Member Role/Relationship Status Dates Dr. Bria Spencer MD Primary Care Provider Active Start: July 18, 2024 End: July 18, 2024 Dr. Bria Spencer MD Attending Provider Active Start: July 18, 2024 End: July 18, 2024 Dr. Bria Spencer MD Referring Provider Active Start: July 18, 2024 End: July 18, 2024 Team Status: Inactive Member Role/Relationship Status Dates Dr. Bria Spencer MD Primary Care Provider Active Start: August 25, 2024 End: August 25, 2024 Dr. Reynaldo Thapa MD Attending Provider Active S tart: August 25, 2024 End: August 25, 2024 Source Comments (unrecognize d section and content) In the event this informatio n is protected by the Federal Confidentiality of Alcohol and Drug Abuse Patient Records regulations: The Federal rules restrict any use of the information to criminally investigate or prosecute any alcohol or drug abuse patient.[facility] the event this information is protected by the Federal Confidentiality of Alcohol and Drug Abuse Patient Records regulations: The Federal rules restrict any use of the information to criminally investigate or prosecute any alcohol or drug abuse patient.[facility] Reason for Visit (unrecogniz ed section and content) Reason Comments Appointment Reason Comments New Patient FOR RECORDS PERTAINING TO PATIENTS WHO ARE [...] BE BASED ON THE PRIMARY CLINICAL RECORDS. [employer] [facility]. provides no warranty or guarantee of the accuracy or completeness of information in this document.
== END | disposition home or self-care (01) ==
LOC: PSN 06:59
PROVIDERS: PCP Family Medicine; Referring Provider Student in an Organized Health Care Education/Training Program; Visit Provider Student in an Organized Health Care Education/Training Program
DX: R61 Generalized hyperhidrosis (principal); I48.0 Paroxysmal atrial fibrillation
CPT/HCPCS: 93225; 93226

== ENCOUNTER → 2024-10-09 | Outpatient (CLI) | payer MEDICARE, SELFPAY ==
[2024-10-09 11:23] LABS: Ionized Calcium Order ORDER TUBE
[2024-10-09 13:27] LABS: PTHIN 32 pg/mL (11-61)
[2024-10-09 13:47] LABS: Vitamin D,25 Hydroxy 43.9 ng/mL (30-100)
== END | disposition home or self-care (01) ==
LOC: BFHLAB 10:22
PROVIDERS: PCP Family Medicine; Visit Provider Family Medicine
DX: E21.3 Hyperparathyroidism, unspecified (principal)
CPT/HCPCS: 36415; 82306; 82330; 83970

== ENCOUNTER 2025-02-16 21:09 | Inpatient (IN) | payer MEDICARE, SELFPAY ==
[2025-02-16 21:11] VITALS: BP 133/88; PULSE 97; RESP 22; TEMP 36.4; O2SAT 94; BMI 35.4
[2025-02-16 21:14] VITALS: BP 133/88; PULSE 96; RESP 22; TEMP 36.4; O2SAT 94
--- NOTE | 2025-02-16 21:20 | EKG12_ITS ---
Test Reason : SO Blood Pressure : */* mmHG Vent. Rate : 96 BPM Atrial Rate : * BPM P-R Int : * ms QRS Dur : 90 ms QT Int : 366 ms P-R-T Axes : * -67 264 degrees QTcB Int : 462 ms Atrial fibrillation Left axis deviation Nonspecific ST and T wave abnormality Abnormal ECG Confirmed by Carlos Chu ([id number]), production editor ARJUN OLIVA ([id number]) on 02/20/2025 6:41:27 AM Referred By: Confirmed By: Carlos Chu
--- OUTSIDE RECORDS SUMMARY | 2025-02-16 21:36 | XMS RPT_ITS | CCD ---
Author Organization [facility] CliniSymt Care Team Providers Care [employer] Officer Name Role Phone Nellie Topete Unavailable Unavailable Nellie Topete Unavailable Unavailable SHARON Baltazar, Abigail Christine Unavailable Unavailabl Marta Wiggins Unavailable Unavailable Marta Urrutia Unavailable Unavailable Nellie Topete Unavailable Unavailable Dr. Rui Rea Primary Care Provider Dr. Rui Rea Referring Provider Dr. Reynaldo Thapa Attending Provider [phone] Anu Albright Attending Provider Unavailable [place] REPORTING COORDINATOR, REPORTING COORDINATOR-Trudy Hughes Attending Provider [phone] Dr. Reynaldo Thapa Referring Provider GOLDEN Robles Attending Provider [phone] Dr. Rui Rea Primary Care Provider Dr. Rui Rea Referring Provider Andrae REPORTING COORDINATOR, CAROL-Trudy Larsen Attending Provider Anu Albright Attending [...] Provider Dr. Rui Rea Referring Provider Roof REPORTING COORDINATOR, REPORTING COORDINATOR-C Sergio Larsen Attending Provider Anu Albright Attending Provider Unavailable Dr. Rui Rea Primary Care Provider Dr. Rui Rea Referring Provider Roof REPORTING COORDINATOR, REPORTING COORDINATOR-C Sergio Larsen Attending Provider Anu Albright Attending Provider Unavailable Dr. Reynaldo Thapa Attending Provider Dr. Reynaldo Thapa Referring Provider [phone] Rui Rea Referring Provider Steve REPORTING COORDINATOR, REPORTING COORDINATOR-Trudy Hughes Attending Provider Dr. Bria Spencer Primary Care Provider [phone] Anu Albright Attending Provider Unavailable [...] Attending Provider Dr. Win John Other Provider Rui Rea MD Primary Care Provider Reynaldo Thapa MD Unavailable RUI REA Primary Care Unavailable Ita Garcia Attending Unavailable Dr. Bria Spencer MD Primary Care Provider Dr. Bria Spencer MD Attending Provider [phone] Bria Spencer MD Referring Provider [phone] Win REPORTING COORDINATOR-CClarisse Attending Provider Dr. Reynaldo Thapa MD Attending Provider [phone] Clarisse Sethi Referring Provider Dr. Bria Spencer MD Primary Care Provider Dr. Bria Spencer MD Referring Provider [phone] Bria Spencer MD Attending Provider [phone] Bria Spencer MD Primary Care Provider Win REPORTING COORDINATOR-CClarisse Attending Provider Dr. Bria Spencer MD Referring Provider [phone] Dr. Ninfa Mejia MD Attending Provider [phone] Eleir HURT, Dr. Jacobs Referring Provider [phone] Estuardo Brown Attending Provider [phone] Estuardo Brown Referring Provider [phone] Anu Albright Attending Provider Unavailable Dr. Bria Spencer MD Primary Care Provider Jackie HURT, Dr. Ocasio Attending Provider Elier HURT, Dr. Jacobs Attending Provider Anu Albright Attending Provider Unavailable Dr. Bria Spencer MD Primary Care Physician Jackie HURT, Dr. Ocasio Attending Physician Elier HURT, Dr. Jacobs Attending Physician Estuardo Brown Attending Physician Dr. Bria Spencer MD Referring Provider Johanna HURT, Dr. Fraser Attending Physician Win REPORTING COORDINATOR-CClarisse Attending Physician Anu Albright Attending Physician Unavailable Miedel, Bria Referring Unavailable Miedel, Bria Primary Care Unavailable Reynaldo Thapa Attending Unavailable Clarisse Walden Attending Unavailable Clarisse Walden Referring Unavailable Miedel, Bria Primary Care Unavailable Miedel, Bria Primary Care Unavailable Miedel, Bria Referring Unavailable Miedel, Bria Attending Unavailable Miedel, Bria Primary Care Unavailable Clarisse Walden Attending Unavailable Clarisse Walden Referring Unavailable Joanniter Estuardo Referring Unavailable Bill Garciayler Attending Unavailable Miedel, Bria Primary Care Unavailable Miedel, Bria Primary Care Unavailable Miedel, Bria Referring Unavailable Miedel, Bria Attending Unavailable Miedel, Rbia Primary Care Unavailable Reynaldo Thapa Attending Unavailable Miedel, Bria Attending Unavailable Miedel, Bria Referring Unavailable Miedel, Bria Primary Care Unavailable Miedel, Bria Primary Care Unavailable Miedel, Bria Attending Unavailable Win Clarisse Referring Unavailable Clarisse Walden Attending Unavailable Miedel, Bria Primary Care Unavailable Miedel, Bria Primary Care Unavailable Reynaldo Thapa Attending Unavailable Miedel, Bria Primary Care Unavailable Miedel, Bria Referring Unavailable Clarisse Walden Attending Unavailable Mied, [facility] Primary Care Unavailable Miedel, Bria Referring Unavailable WinDenisaClarisse Attending Unavailable Mied, [facility] Primary Care Unavailable Elier, Panacea Referring Unavailable Elier, Panacea Attending Unavailable [facility], [facility] Primary Care Unavailable Elier, Panacea Attending Unavailable Elier, Panacea Referring Unavailable WinAnnabelleClarisse Attending Unavailable Mied, [facility] Primary Care Unavailable Miedel, Bria Referring Unavailable Miedel, [facility] Referring Unavailable WinClarisse Attending Unavailable Mied, [facility] Primary Care Unavailable Demiter, Estuardo Referring Unavailable Mied, [facility] Primary Care Unavailable Elier, Reynaldo Attending Unavailable Elier, Panacea Referring Unavailable Mied, [facility] Primary Care Unavailable Elier, Reynaldo Attending Unavailable Azed, [facility] Primary Care Unavailable Elier, Reynaldo Attending Unavailable Elier, Reynaldo Referring Unavailable Mied, [facility] Primary Care Unavailable Elier, Reynaldo Attending Unavailable Elier, Reynaldo Referring Unavailable Mied, [facility] Primary Care Unavailable Elier, Reynaldo Referring Unavailable Elier, Reynaldo Attending Unavailable Elier, Panacea Referring Unavailable Azed, [facility] Primary Care Unavailable Elier, Reynaldo Attending Unavailable Elier, Panacea Referring Unavailable [facility], [facility] Primary Care Unavailable Elier, Panacea Attending Unavailable [facility], [facility] Primary Care Unavailable Elier, Reynaldo Attending Unavailable Elier, Panacea Referring Unavailable Allergies Allergy Classification Reported Allergen(s) Allergy Type Date of Onset Reaction(s) Facility (20 sources) codeine; Translations: [CODEINE] drug allergy 07-06-19 12 GI Upset, Vomiting [facility] Work Phone: (6 sources) dronedarone drug allergy 04-18-19 13 Severe GI intolerance [facility] Work Phone: (9 sources) loratadine; Translations: [LORATADINE] drug allergy 07-06-19 12 GI Upset, Vomiting [facility] Work Phone: (12 sources) meloxicam; Translations: [MOBIC] allergy to substance 08-05-19 15 N&V [facility] Work Phone: [phone] (9 sources) methylprednisoLONE; Translations: [METHYLPREDNISOLONE] drug allergy 07-06-19 12 GI Upset, Vomiting [facility] Work Phone: [phone] (12 sources) Penicillins (Antibiotic) drug allergy 04-18-19 13 N&[address] [facility] Work Phone: [phone] (6 sources) sulfamethoxazole / trimethoprim drug allergy 04-18-19 13 Hives, nausea [facility] Work Phone: [phone] (6 sources) CILLINS drug allergy 04-18-[address] [facility] Work Phone: [phone] (20 sources) dronedarone; Translations: [DRONEDARONE] Drug Allergy 05-30-19 18 Unknown [facility] (20 sources) meloxicam; Translations: [MELOXICAM] Drug Allergy 05-30-19 18 Unknown [facility] (20 sources) Nitrofurantoin; Translations: [NITROFURANTOIN] Drug Allergy 01-26-20 20 Unknown [facility] (20 sources) Penicillins; Translations: [PENICILLINS] Allergy to substance 05-30-19 18 Shortness of Breath [facility] (20 sources) Sulfamethoxazole; Translations: [SULFAMETHOXAZOLE] Drug Allergy 07-06-19 12 GI Upset, Vomiting [facility] (20 sources) Trimethoprim; Translations: [TRIMETHOPRIM] Drug Allergy 07-21-19 19 GI Upset [facility] (20 sources) dapagliflozin Drug Allergy 03-08-19 24 Nausea/Vom/Cami rrhea [facility] (20 sources) metFORMIN Drug Allergy 03-08-19 24 PT UNSURE OF REACTION [facility] (19 sources) vibegron; Translations: [vibegron] Allergy to substance 05-16-19 25 Unknown [facility] (12 sources) Sulfacetamide Drug Allergy 09-18-19 25 Pt does not recall [facility] (1 source) dapagliflozin Drug Allergy 10-24-19 25 [facility] (1 source) dronedarone Drug Allergy 07-18-19 25 [facility] (1 source) meloxicam Drug Allergy 10-24-19 [facility] (1 source) metFORMIN Drug Allergy 10-24-19 [facility] (1 source) Nitrofurantoin Drug Allergy 10-24-19 [facility] (1 source) Sulfacetamide Drug Allergy 10-24-19 [facility] (1 source) Sulfamethoxazole Drug Allergy 10-24-19 [facility] (1 source) Trimethoprim Drug Allergy 10-24-19 [facility] Medications Current Medications Medication Drug Class(es) Dates Sig (Normalized) Sig (Original) cholecalciferol 0.025 mg oral tablet (20 sources) Vitamin D Start: 09-30-2024 take 1 tablet by mouth once daily Start: 07-06-2017 End: 09-30-2024 take 2 tablets by mouth once daily Cholecalciferol (Vitamin D3) 1,000 unit tablet Discontinued 2000 U PO daily July 06, 2017 12:00am September 30, 2024 10:34am supplement Start: 07-06-2017 take 2000 [IU] by mo uth once daily Cholecalciferol (Vitamin D3) Active 2000 UNIT PO daily July 06, 2017 12:00am Start: 07-06-2017 take 1000 [IU] by mo uth once daily Cholecalciferol (Vitamin D3) Active 1000 [...] 06, 2017 12:18pm take 1 capsule by mo uth once daily Cholecalciferol, Vitamin D3, (VITAMIN D) 1,000 unit cap Take 1,000 Units by mouth once daily. 0 Active clotrimazole 10 mg/ml topical solution [...] times daily. 1 Tube 0 05/29/2017 Active 24 hr dilTIAZem hydrochloride 120 mg extended release oral capsule (20 sources) Calcium Channel Donte Start: 09-18-2024 End: 09-22-2024 take 1 capsule by mouth once daily in the morning, then take 1 capsule by mouth every twenty-four hours furosemide 40 mg oral tablet (20 sources) Loop Diuretic Start: 09-30-2024 take 1 tablet by mouth once daily Start: 08-29-2023 End: 09-30-2024 take 1 tablet by mouth every other day Furosemide 40 mg tablet Discontinued 40 mg PO every other day 90 3 August 29, 2023 4:51pm September 30, 2024 10:34am Start: 12-17-2020 End: 08-29-2023 take 1 tablet by mouth once daily as needed Furosemide 40 mg tablet Discontinued 0 .ROUTE .COMPLEX 90 February 26, 2023 12:23pm August 29, 2023 4:45pm TAKE 1 TABLET BY MOUTH EVERY DAY NEEDED FOR SHORTNESS OF BREATH metoprolol tartrate 100 mg oral tablet (20 sources) beta-Adrenergic Donte Start: 09-15-2024 take 1 tablet by mouth twice daily Start: 01-07-2024 End: 09-15-2024 take 1 tablet by mouth twice daily Metoprolol Tartrate 50 mg tablet Discontinued 50 mg PO TWICE A DAY 180 July 17, 2024 8:56am September 15, 2024 11:07am Start: 04-01-2021 End: 01-07-2024 take 1 tablet [...] 25 mg PO TWICE A DAY 180 3 September 29, 2020 3:44pm December 10, 2020 12:52pm Molnupiravir (1 source) Start: 07-15-2021 take 800 mg by mouth every twelve hours Molnupiravir Active 800 MG PO Q12H 40 5 July 15, 2021 11:39pm psyllium 400 mg oral capsule (20 sources) Start: 10-23-2024 Start: 07-17-2024 End: 09-30-2024 Psyllium Husk (Metamucil) 0. 4 gram capsule Discontinued 0.4 g PO daily July 17, 2024 12:00am September 30, 2024 10:34am SITagliptin 25 mg oral tablet (20 sources) Dipeptidyl Peptidase 4 Inhibitor Start: 02-27-2023 take 1 tablet by mouth once daily Completed/Discontinued Medications Medication Drug Class(es) Dates Sig [...] Q8H as needed for pain 10 3 0 June 29, 2022 July 12, 2022 8:26am Calculus of right kidney Calculus of kidney Start: 06-08-2022 take 1 tablet by william th every eight hours Oxycodone-Acetaminophen (Percocet) 5-325 mg tablet Active 1 TABLET PO Q8H 10 3 June 08, 2022 amiodarone hydrochloride 200 mg oral tablet (20 sources) Antiarrhythmic Start: 09-17-2024 End: 09-18-2024 Amiodarone 200 mg tablet Discontinued 200 mg PO .COMPLEX 60 September 17, 2024 11:19am September 18, 2024 10:21am 200 mg orally twice a day for 1 month (then take 200 mg daily ONCE a day) Start: 12-10-2020 End: 12-10-2020 take 1 tablet by mouth once daily Amiodarone 200 mg tablet Discontinued 200 mg PO DAILY 30 December 10, 2020 12:00am December 10, 2020 3:40pm On Hold: pharmacy reports anaphylaxis to [facility] Start: 07-23-2014 End: 08-05-2014 take 1 tablet by mouth once daily AMIODARONE HCL 200 MG TABS One tablet by mouth daily AMIODARONE HCL [id number] Reynaldo Thapa MD amoxicillin 875 mg / clavulanate 125 mg oral tablet (20 sources) Penicillin-class Antibacterial Start: 04-04-2023 End: 05-21-2023 Amoxicillin-Pot Clavulanate 875-125 mg tablet Discontinued 1 {tbl} PO TWICE A DAY 14 April 04, 2023 1:00am May 21, 2023 8:31am Start: 04-04-2023 End: 05-21-2023 take 1 tablet by mouth twice daily Amoxicillin-Pot Clavulanate Discontinued 1 TABLET PO TWICE A DAY 14 April 04, 2023 1:00am May 21, 2023 8:31am aspirin 81 mg oral tablet (18 sources) Nonsteroidal Anti-inflammatory Drug Start: 04-19-2012 End: 08-05-2014 ASPIRIN 81 MG TABS ASPIRIN [id number] Reynaldo Thapa MD Start: 04-19-2012 End: 08-05-2014 ASPIRIN 81 MG TABS 1 ASPIRIN [id number] Reynaldo Thapa MD Start: 04-19-2012 ASPIRIN 81 MG TABS ASPIRIN [id number] Reynaldo Thapa MD Start: 04-19-2012 End: 08-05-2014 ASPIRIN 81 MG TABS 1 ASPIRIN [id number] Reynaldo Thapa MD Start: 04-18-2012 take 1 tablet by william once daily ASPIRIN 325 MG TABS One tablet by mouth daily ASPIRIN [id number] Yesenia Rodríguez RN bacillus coagulans [id number] unt chewable tablet (16 sources) Start: 07-17-2024 End: 09-30-2024 Bacillus Coagulans (Digestive Advantage Prob Gummy) 250 million cell tablet,chewable Discontinued 1 {tbl} PO ONCE July 17, 2024 12:00am September 30, 2024 10:33am betamethasone 0.5 mg/ml / clotrimazole 10 mg/ml topical cream (20 sources) Azole Antifungal, Corticosteroid Start: 07-12-2022 End: 12-20-2022 Clotrimazole-Betametha sone 1-0.05 % cream Discontinued 1 NMA TOPICAL [...] One tablet by mouth daily BIOTIN TABS [id number] Reynaldo Thapa MD Start: 06-30-2016 take 1 tablet by william th once daily BIOTIN FORTE TABS One tablet by mouth daily BIOTIN TABS [id number] Reynaldo Thapa MD calcitriol 0.14164 mg oral capsule (20 sources) Vitamin D3 Analog Start: 03-08-2023 End: 06-05-2023 take 1 capsule by mouth once daily Calcitriol 0.25 mcg capsule Discontinued 0.25 ug PO DAILY 30 0 March 08, 2023 1:00am June 05, 2023 1:47pm 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 calcium carbonate 1250 mg / cholecalciferol 200 unt oral tablet (20 sources) Vitamin D Start: 03-08-2023 End: 08-21-2023 Calcium Carbonate-Vitamin D3 500 mg-5 mcg (200 unit) tablet Discontinued 1 {tbl} PO THREE TIMES A DAY 90 0 Federica 18th, 2024 1:00am August 21, 2023 6:47am 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 Start: 03-08-2023 take 1 tablet by william th three times daily Calcium Carbonate-Vitamin D3 Active [...] mg PO EVERY 12 HOURS 6 3 June 29, 2022 12:00am July 12, 2022 8:25am post-operative Start: 06-08-2022 take 500 mg by mouth every twelve hours Cephalexin Active 500 MG PO EVERY 12 HOURS 6 3 June 08, 2022 12:00am citalopram 20 mg oral tablet (20 sources) Serotonin Reuptake Inhibitor Start: 02-09-2021 End: 09-30-2024 take 1 tablet by mouth once daily Citalopram 20 mg Tablet Discontinued 20 mg PO DAILY February 09, 2021 1:00am September 30, 2024 10:34am Start: 04-19-2012 End: 12-16-2020 take 1 tablet by mouth once daily Citalopram 20 MG tablet Discontinued 20 mg PO DAILY May 19, 2014 12:00am December 16, 2020 4:11pm antidepressant Start: 04-18-2012 take 1 tablet by william th once daily CITALOPRAM HYDROBROMIDE 10 MG TABS One tablet by mouth daily CITALOPRAM HYDROBROMIDE [id number] Yesenia Rodríguez RN clobetasol propionate 0.0005 mg/mg topical ointment (20 sources) Corticosteroid Start: 07-17-2023 End: 09-30-2024 Clobetasol 0.05 % ointment Discontinued 1 NMA TOPICAL .COMPLEX 15 July 17, 2023 8:49am September 30, 2024 10:34am 1 applic topical daily up to one [...] lotn Apply to affected area. 0 Active diazePAM 5 mg oral tablet (12 sources) Benzodiazepine Start: 04-18-2012 End: 04-16-2014 DIAZEPAM 5 MG TABS As needed DIAZEPAM [id number] Yesenia Rodríguez RN estradiol 0.1 mg/ml vaginal cream (20 sources) Estrogen Start: 07-17-2023 End: 09-30-2024 Estradiol 0.01 % (0.1 mg/gram) cream Discontinued 0 VAGINAL .COMPLEX 42.5 2 May 14, 2024 12:56pm September 30, 2024 10:34am small amount as directed vaginal twice a [...] X 4 weeks then twice a week; flecainide acetate 150 mg oral tablet (20 sources) Antiarrhythmic Start: 07-05-2021 End: 09-17-2024 take 1 tablet by mouth every twelve hours Flecainide 150 mg tablet Discontinued 150 mg PO Q12H 180 3 November 26, 2023 9:28am September 17, 2024 10:54am Start: 2021 End: 04-01-2021 take 1 tablet by mouth every twelve hours Flecainide 150 mg tablet Discontinued 150 mg PO Q12H 180 2021 9:36am April 01, 2021 6:56pm Start: [...] tablet by mouth twice daily FLECAINIDE ACETATE [id number] Reynaldo Thapa MD Start: 08-05-2014 take 0.5 tablet by m out twice daily FLECAINIDE ACETATE 100 MG TABS 1/2 tablet by mouth twice daily FLECAINIDE ACETATE [id number] Yesenia Rodríguez RN fluconazole 150 mg oral tablet (20 sources) Azole Antifungal Start: 09-25-2022 End: 12-20-2022 [...] three times daily for leg pain GABAPENTIN [id number] Yesenia Rodríguez RN Start: 04-18-2012 End: 04-16-2014 take 1 tablet by mouth three times daily for pain NEURONTIN 100 MG CAPS One tablet by mouth three times daily for leg pain GABAPENTIN [id number] Jazmin Cheng PA-C lansoprazole 30 mg delayed [...] % PTCH remove & reapply daily LIDOCAINE [id number] Yesenia Rodríguez RN Start: 04-18-2012 End: 07-23-2014 LIDODERM 5 % PTCH remove & r eapply daily LIDOCAINE [id number] Abigail Baltazar RN Start: 04-18-2012 LIDODERM 5 % P TCH remove & reapply daily LIDOCAINE [id number] Yesenia Rodríguez RN metroNIDAZOLE 500 mg oral [...] One tablet by mouth daily MULTIPLE VITAMIN [id number] Yesenia Rodríguez RN Start: 04-18-2012 End: 04-17-2013 take 1 tablet by mouth once daily MULTIVITAMINS TABS One tablet by mouth daily MULTIPLE VITAMIN [id number] Reynaldo Thapa MD MULTIPLE VITAMIN (6 sources) Start: 04-18-2012 take 1 tablet by mouth once daily MULTIVITAMINS TABS One tablet by mouth daily MULTIPLE VITAMIN [id number] Yesenia Rodríguez RN Start: 04-18-2012 End: 04-17-2013 take 1 tablet by mouth once daily MULTIVITAMINS TABS One tablet by mouth daily MULTIPLE VITAMIN [id number] Reynaldo Thapa MD Start: 04-18-2012 take 1 tablet by william once daily MULTIVITAMINS TABS One tablet by mouth daily MULTIPLE VITAMIN [id number] Yesenia Rodríguez RN Start: 04-18-2012 End: 04-17-2013 take 1 tablet by mouth once daily MULTIVITAMINS TABS One tablet by mouth daily MULTIPLE VITAMIN [id number] Reynaldo Thapa MD nebivolol 5 mg oral tablet (20 sources) Start: 04-18-2012 End: 09-22-2020 take 1 tablet by mouth once daily Nebivolol 5 mg tablet Discontinued 5 mg PO DAILY 90 3 December 23, 2019 6:19pm September 22, 2020 2:49pm blood pressure omeprazole 40 mg delayed release oral capsule (20 sources) Proton Pump Inhibitor Start: 07-17-2024 End: 09-30-2024 take 1 capsule by mouth twice daily Omeprazole 40 mg capsule,delayed release(DR/EC) Discontinued 40 mg PO TWICE A DAY 180 0 July 17, 2024 12:00am September 30, 2024 10:34am Start: 05-15-2024 End: 07-17-2024 take 1 capsule [...] CPDR One tablet by mouth daily OMEPRAZOLE [id number] Yesenia Rodríguez RN ondansetron 4 mg disintegrating oral tablet (20 sources) Serotonin-3 Receptor Antagonist Start: 04-04-2023 End: 08-21-2023 take 1 tablet by mouth every eight hours as needed for nausea and vomiting Ondansetron 4 mg tablet,disintegrating Discontinued 4 mg PO Q8H as needed for nausea and vomiting April 04, 2023 1:00am August 21, 2023 6:48am Start: 06-29-2022 End: 07-12-2022 take 1 tablet by mouth every eight hours as needed for nausea Ondansetron Hcl 8 mg tablet Discontinued 8 mg PO EVERY 8 HOURS NEEDED as needed for Nausea 20 7 June 29, 2022 12:00am July 12, 2022 8:26am phenazopyridine hydrochloride 200 mg oral tablet (20 sources) Start: 06-08-2022 End: 12-20-2022 take 1 tablet by mouth three times daily as needed for muscle spasms Phenazopyridine (Pyridium) 200 mg tablet Discontinued 200 mg PO 3 TIMES DAILY NEEDED as needed for Bladder Spasms 30 July 12, 2022 8:26am December 20, 2022 [...] 6 HOURS NEEDED as needed for Nausea July 15, 2021 12:00am August 09, 2021 1:41pm raNITIdine 150 mg oral tablet (12 sources) Histamine-2 Receptor Antagonist Start: 04-18-2012 End: 04-19-2012 take 1 tablet by mouth twice daily RANITIDINE HCL 150 MG TABS One tablet by mouth twice daily RANITIDINE HCL [id number] Reynaldo Thapa MD rivaroxaban 20 mg oral tablet (20 sources) Factor Xa Inhibitor Start: 01-21-2021 End: 08-13-2024 take 1 tablet by mouth at dinner Rivaroxaban (Xarelto) 20 mg tablet Discontinued 20 mg PO AT BEDTIME 90 3 August 11, 2024 3:10pm August 13, 2024 1:16pm must administer with evening meal Start: 07-01-2014 End: 01-18-2021 take 1 tablet by mouth at bedtime Rivaroxaban 20 mg tablet Discontinued 20 mg PO AT BEDTIME 90 3 November 16, 2020 3:52pm December 16, 2020 4:11pm blood thinner sucralfate 1000 mg oral tablet (20 sources) Aluminum Complex Start: 09-30-2015 End: 07-06-2017 take 1 tablet by mouth four times daily Sucralfate 1 GM tablet Discontinued 1 g PO 4 TIMES DAILY September 30, 2015 12:00am July 06, 2017 12:19pm End: 12-28-2015 take 1 tablet by mouth four times daily CARAFATE 1 GM TABS One tablet by mouth four times daily SUCRALFATE [id number] Reynaldo Thapa MD take 1 tablet by william th four times daily CARAFATE 1 GM TABS One tablet by mouth four times daily SUCRALFATE [id number] Sadi Santoyo terconazole 4 mg/ml vaginal cream [...] as needed for severe pain TRAMADOL HCL [id number] Jazmin Cheng PA-C Vibegron (20 sources) Start: 08-24-2022 End: 12-20-2022 take 1 [...] units One tablet by mouth daily CHOLECALCIFEROL [id number] Yesenia Rodríguez RN Start: 04-18-2012 take 1 tablet by william th once daily VITAMIN D 1000 UNIT TABS One tablet by mouth daily CHOLECALCIFEROL [id number] Reynaldo Thapa MD Start: 04-18-2012 take 1 tablet by william th once daily VITAMIN D 1000 UNIT TABS One tablet by mouth daily CHOLECALCIFEROL [id number] Reynaldo Thapa MD Start: 04-18-2012 take 5 tablets by mo uth once daily, then take 1 tablet by mouth VITAMIN D 1000 UNIT TABS 5000 units One tablet by mouth daily CHOLECALCIFEROL [id number] Yesenia Rodríguez RN Problems Active Problems Problem [...] dysrhythmias (20 sources) Bradycardia; Translations: [Bradycardia, unspecified] Onset: 5 Episodic Complications of surgical procedures or medical care (20 sources) Hypoparathyroidism following procedure; Translations: [Postprocedural hypoparathyroidism] [...] 4 09-05-2023 Chronic Diabetes mellitus without complication (20 sources) Diabetes mellitus; Translations: [Type 2 diabetes [...] esophagus] Onset: 4 09-05-2023 Chronic Esophageal disorders (18 sources) Achalasia of esophagus; Translations: [Achalasia of cardia] 07-03-2023 Episodic Essential hypertension (20 sources) Hypertensive disorder; Translations: [Essential hypertension] Onset: 3 04-18-2012 Chronic Malaise and fatigue (20 sources) Fatigue; Translations: [Other fatigue] 01-04-2021 Episodic Menopausal disorders (20 sources) Atrophic vaginitis; Translations: [Postmenopausal atrophic vaginitis] 07-05-2021 Chronic Comment on above: estradiol cream Miscellaneous mental health disorders (12 sources) Globus sensation Chronic Mycoses (20 sources) Candidiasis of skin and nail; Translations: [Candidiasis of skin and nails] Episodic Comment on above: lotrisone Rx Nausea and vomiting (20 sources) Nausea and vomiting; Translations: [Nausea with vomiting, unspecified] 07-24-2021 Episodic Noninfectious gastroenteritis (20 sources) Colitis; Translations: [Noninfective gastroenteritis and colitis, unspecified] 04-04-2023 Episodic Nonspecific chest pain (20 sources) Chest pain; Translations: [Chest pain, unspecified] 06-22-2020 Episodic Other aftercare (2 sources) Long-term current use of anticoagulant; Translations: [FDC (current) use of anticoagulants] 12-21-2020 Episodic Other endocrine disorders (20 sources) Primary hyperparathyroidism; Translations: [Primary hyperparathyroidism] 12-20-2022 [...] D. I held a lengthy discussion with Niraj today regarding first how the diagnosis of [...] source) Hyperparathyroidism, unspecified; Translations: [Hyperparathyroidism, unspecified] Onset: Chronic Other gastrointestinal disorders (20 sources) Dysphagia; Translations: [Dysphagia, unspecified] Onset: 6 09-20-2015 Episodic Other gastrointestinal disorders (20 sources) Incontinence of feces; Translations: [Full incontinence of feces] 06-22-2020 Episodic Comment on above: urogyn consult, PFPT consult Other gastrointestinal disorders (20 sources) Constipation; Translations: [Constipation, unspecified] Episodic Other gastrointestinal disorders (20 sources) Altered bowel function; Translations: [Change in bowel habit] 05-15-2024 Episodic Other gastrointestinal disorders (18 sources) Finding of pelvis; Translations: [Other ascites] [...] obesity type (HCC)] Onset: 4 Chronic Other screening for suspected conditions (not mental disorders or infectious disease) (19 sources) Electrocardiogram abnormal; Translations: [Abnormal electrocardiogram [ECG] [EKG]] Onset: 5 08-16-2023 Episodic Other skin disorders (20 sources) Lichen sclerosus et atrophicus; 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 Comment on above: clobetesol Other skin disorders (1 source) Generalized hyperhidrosis; Translations: [Generalized hyperhidrosis] Onset: 5 Episodic Other upper respiratory disease (20 sources) Feeling of lump in throat; Translations: [...] above: son hs DM Residual codes; unclassified (20 sources) History of parathyroidectomy; Translations: [Other specified [...] to health] 12-21-2020 Episodic Residual codes; unclassified (18 sources) History of repair of retina for retinal detachment; Translations: [Other specified postprocedural states] 06-22-2020 Episodic Sprains and strains (20 sources) Sprain of ankle; Translations: [Sprain of unspecified ligament of right ankle, initial encounter] 10-15-2021 Episodic Unclassified (8 sources) Altered bowel habits; Translations: [K59.00 - Constipation, unspecified,R19.4 - Change in bowel habit] Unclassified (20 sources) R09.A2 - Foreign body sensation, throat,R05.9 - Cough, unspecified Unclassified (1 source) Other persistent atrial fibrillation; Translations: [Other persistent atrial fibrillation] Onset: 5 Unclassified (1 source) Foreign body sensation, throat; Translations: [Foreign body sensation, throat] Onset: 5 Unclassified (1 source) Cough, unspecified; Translations: [Cough, unspecified] Onset: 5 Viral infection (20 sources) Disease caused by 2019-nCoV; Translations: [COVID-19] Episodic Past or Other Problems Problem Classification Problem Date Documented Da te Episodic/Chronic Gastrointestinal hemorrhage (20 sources) Melena; Translations: [Melena] Onset: 07-22-2024 07-17-2024 Episodic Other aftercare (6 sources) 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; Translations: [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] Onset: 11-18-2014 11-18-2014 Episodic Other gastrointestinal disorders (3 sources) Dysphagia, unspecified; Translations: [Dysphagia, unspecified] Onset: 07-09-2024 05-21-2023 Episodic Other gastrointestinal disorders (1 source) Constipation, unspecified; Translations: [Constipation, unspecified] Onset: 05-15-2024 Episodic Other gastrointestinal disorders (1 source) Change in bowel habit; Translations: [Change in bowel habit] Onset: 05-15-2024 Episodic Other non-traumatic joint disorders (1 source) Pain in right shoulder; Translations: [Pain in right shoulder] Onset: 03-29-2024 Episodic Residual codes; unclassified (20 sources) History of cardioversion; Translations: [Other specified postprocedural states] Onset: 07-21-2019 03-30-2021 Episodic Comment on above: 01/15/2018, 04/28/19, [...] Test Name Value Interpretation Reference Range Facility Pacemaker Checkon 11-10-2024 Pacemaker Check [facility] [address] [place] [address] Pacemaker Check Date of Service: 11/10/241802 MR#: [id number] Acct: [id number] Name: SHIRLEY SHULTZ Rep #: [id number] : 1945 From: Anu Albright Age/Sex: 79/F Location: [place] Status: Signed Billing Codes PM Device Codes: 98346 PM Dev Prog Eval, Dual Assessment and Plan Assessment and Plan (1) Paroxysmal atrial fibrillation: Status: Acute (2) Tachy-eric syndrome: Status: Resolved (3) History of permanent cardiac pacemaker placement: Status: Chronic (4) Symptomatic bradycardia: Status: Acute 11/10/241802 Date Anu Kang Signature: Date (if applicable) CC: Normal [facility] Gastroenterology Visit Repor ton 10-23-2024 Gastroenterology Visit Report [facility] [address] [place] [address] OFFICE VISIT Date of Service: 10/23/24 MR#: [id number] Acct: [id number] Name: SHIRLEY SHULTZ Rep #: [id number] : 1945 Provider: JALEN foss Age/Sex: 79/F Location[place] [facility] [place] Status: Signed Intake Vital Signs 07/17/24 09:39 09/30/24 10:08 10/23/24 08:14 Height 5 ft 3 in 5 ft 3 in 5 ft 3 in Weight: 190 lb BMI 33.6 BP 133/90 H Respiration 16 Pulse 80 Temp 98.0 F Temp Source Temporal Pulse Oximetry (%) 97 Oxygen Delivery Method room air Intake Visit Reasons: 3 M FU Chief Complaint: follow-up Materials Technician Required: No Accompanied by: Self Is patient in pain?: No Allergies dapagliflozin (From Farxiga) Allergy (Severe, Verified 10/23/24 08:13) Nausea/Vom/Diarrhea codeine Allergy (Intermediate, Verified 10/23/24 08:13) PT UNSURE OF REACTION meloxicam (From Mobic) Allergy (Intermediate, Verified 10/23/24 08:13) PT UNSURE OF REACTION nitrofurantoin Allergy (Intermediate, Verified 10/23/24 08:13) PT UNSURE OF REACTION Penicillins Allergy (Intermediate, Verified 10/23/24 08:13) PT UNSURE OF REACTION sulfamethoxazole (From Bactrim) Allergy (Intermediate, Verified 10/23/24 08:13) PT UNSURE OF REACTION trimethoprim (From Bactrim) Allergy (Intermediate, Verified 10/23/24 08:13) PT UNSURE OF REACTION sulfacetamide Allergy (Unknown, Verified 10/23/24 08:13) Pt does not recall vibegron (From Gemtesa) Allergy (Unknown, Verified 10/23/24 08:13) Unknown metformin Adverse Reaction (Verified 10/23/24 08:13) PT UNSURE OF REACTION Medications ???Medication ???Instructions ???Recorded ???Confirmed ???Type sitagliptin phosphate 25 mg tablet 25 mg PO DAILY 02/27/23 10/23/24 History (Januvia) rivaroxaban 20 mg tablet (Xarelto) 20 mg PO .COMPLEX #90 tabs 08/1310/23/24 Rx metoprolol tartrate 100 mg tablet 100 mg PO BID #60 tabs 09/15/24 0 10/23/24 Rx diltiazem HCl 120 mg 120 mg PO QAM #90 caps 09/22/24 Rx capsule,extended release 24 hr (Cardizem CD) cholecalciferol (vitamin D3) 25 5,000 unit PO QDAY supplement 09/1910/23/24 History mcg (1,000 unit) tablet furosemide 40 mg tablet 40 mg PO QDAY 09/30/24 10/23/24 Hi story psyllium husk 0.4 gram capsule 0.4 g PO QDAY 10/23/24 10/23/24 Hi story (Metamucil) Have you fallen in the past year?: No PFSH Medical History Right renal stone Cataracts, bilateral [...] history: - retired HPI HPI Chief Complaint: follow-up Details: OV 07/17/2024 79y/o female presents for follow-up of dysphagia and fecal incontinence. She is continuing to experience fecal incontinence of soft stools with passage of flatus approximately 3x a week. Anorectal Manometry was WNL. Since last seen she started Metamucil and a daily probiotic and is no longer experiencing hard stools. I cadena (more content not included)... Normal [facility] L501.2276on 10-09-2024 Ionized Calcium 1.19 mmol/L Normal 1.09-1.30 [facility] Comment on above: Performed By: #### L 509.1000, L501.2276, L506.1001 #### [facility] [address] [place], [address] PTHINon 10-09-2024 PTH 32 pg/mL Normal 11-61 [facility] Comment on above: Performed By: #### L 509.1000, L501.2276, L506.1001 #### [facility] [address] [place], [address] Vitamin D,25 Hydroxyon 10-09 Vitamin D 25-OH 43.9 ng/mL Normal 30-100 [facility] Comment on above: Result Comment: Gretel min D Status Deficiency: <20 ng/mL (50nmol/L) Insufficiency: 20-30 ng/mL (50-75 nmol/L) Sufficiency: 30-100 ng/mL (75-250 nmol/L) Toxicity: >100 ng/mL (>250 nmol/L) Performed By: #### L 509.1000, L501.2276, L506.1001 #### [facility] [address] [place], [address] Cardiology Visit Reporton Cardiology Visit Report [facility] [address] [place] [address] OFFICE VISIT Date of Service: 09/30/24 MR#: [id number] Acct: [id number] Name: SHIRLEY SHULTZ Rep #: [id number] : 1945 Provider: Dr. Reynaldo Thapa MD Age/Sex: 79/F Location[place] [facility] [place] Status: Signed HPI HPI History of Present Illness Details: SHIRLEY SHULTZ, is a 79 F who presents to the office today for a cardiovascular follow-up. She has a history of hypertension, atrial fibrillation with a cardioversion in January 2018 and April of 2019 unsuccessfully and hyperlipidemia. She had seen the bagging salvager at [facility] and it was felt that she would benefit from a permanent pacemaker due to uncontrolled atrial fibrillation. She had previously been on flecainide as well. She underwent pacemaker placement on 01/17/2021 for tachybradycardia syndrome. Patient presented to [facility] emergency department on 02/09/2021 for chest pain. Her EKG and troponin were negative. She underwent a stress test on 02/10/2021 that was negative for ischemia. Her pacemaker was interrogated today. She denies chest, arm, jaw, or neck discomfort. She denies palpitations. She denies bilateral lower extremity edema. She denies claudication. She denies shortness of breath with activity, shortness of breath at rest, orthopnea, or PND. She denies chronic cough. She denies significant, sudden weight gain. She states lightheadedness. She denies dizziness, near-syncope, or syncope. She denies blood in urine, blood in stool, or epistaxis. He denies fever with chills. She denies myalgia. She states fatigue. Her exercise level has remained stable. Intake Vital Signs 08/16/23 09:50 07/17/24 09:39 09/30/24 10:08 Height 5 ft 4 in 5 ft 3 in 5 ft 3 in Weight: 188 lb BMI 33.3 BP 133/79 H Blood Pressure Location Lt brachial Position Sitting Respiration 16 Pulse 78 Pulse Source Monitor Intake Visit Reasons: 1 Y FU/GIA @ 10 Materials Technician Required: No Accompanied by: Self Is patient in pain?: No Allergies dapagliflozin (From Farxiga) Allergy (Severe, Verified 09/30/24 10:32) Nausea/Vom/Diarrhea codeine Allergy (Intermediate, Verified 09/30/24 10:32) PT UNSURE OF REACTION meloxicam (From Mobic) Allergy (Intermediate, Verified 09/30/24 10:32) PT UNSURE OF REACTION nitrofurantoin Allergy (Intermediate, Verified 09/30/24 10:32) PT UNSURE OF REACTION Penicillins Allergy (Intermediate, Verified 09/30/24 10:32) PT UNSURE OF REACTION sulfamethoxazole (From Bactrim) Allergy (Intermediate, Verified 09/30/24 10:32) PT UNSURE OF REACTION trimethoprim (From Bactrim) Allergy (Intermediate, Verified 09/30/24 10:32) PT UNSURE OF REACTION sulfacetamide Allergy (Unknown, Verified 09/30/24 10:32) Pt does not recall vibegron (From Gemtesa) Allergy (Unknown, Verified 09/30/24 10:32) Unknown metformin Adverse Reaction (Verified 09/30/24 10:32) PT UNSURE OF REACTION Medications ???Medication ???Instructions ???Recorded ???Confirmed ???Type sitagliptin phosphate 25 mg tablet 25 mg PO DAILY 02/27/23 09/30/24 History (Januvia) rivaroxaban 20 mg tablet (Xarelto) 20 mg PO .COMPLEX #90 tabs 08/1309/30/24 Rx metoprolol tartrate 100 mg tablet 100 mg PO BID #60 tabs 09/15/24 0 09/30/24 Rx diltiazem HCl 120 mg 120 mg PO QAM #90 caps 09/22/24 Rx capsule,extended release 24 hr (Cardizem CD) cholecalciferol (vitamin D3) 25 5,000 unit PO QDAY supplement 09/1909/30/24 History mcg (1,000 unit) tablet furosemide 40 mg tablet 40 mg PO QDAY 09/30/24 History Have you fallen in the past year?: No PFSH Medical History Right renal stone Cataracts, bilateral [...] of cardioversion (07/21/19) History of left heart cat (more content not included)... Normal [facility] Pacemaker Checkon 09-30-2024 Pacemaker Check [facility] [address] [place] [address] Pacemaker Check Date of Service: 09/30/241732 MR#: [id number] Acct: [id number] Name: SHIRLEY SHULTZ Rep #: [id number] : 1945 From: Anu Albright Age/Sex: 79/F Location: [place] Status: Signed Billing Codes PM Device Codes: 31963 PM Dev Prog Eval, Dual Assessment and Plan Assessment and Plan (1) Paroxysmal atrial fibrillation: Status: Acute (2) History of permanent cardiac pacemaker placement: Status: Chronic (3) Symptomatic bradycardia: Status: Acute 09/30/241733 Date Anu Jose Ramon Kang Signature: Date (if applicable) CC: Normal [facility] Pacemaker Checkon 09-17-2024 Pacemaker Check [facility] [address] [place] [address] Pacemaker Check Date of Service: 09/17/24 1432 MR#: [id number] Acct: [id number] Name: SHIRLEY SHULTZ Rep #: [id number] : 1945 From: Anu Albright Age/Sex: 79/F Location: [place] Status: Signed Billing Codes PM Device Codes: 61858 PM Dev Prog Eval, Dual Assessment and Plan Assessment and Plan (1) Paroxysmal atrial fibrillation: Status: Acute (2) Tachy-eric syndrome: Status: Resolved (3) Persistent atrial fibrillation: Status: Chronic (4) History of permanent cardiac pacemaker placement: Status: Chronic (5) Symptomatic bradycardia: Status: Acute Medications: Discontinued flecainide Discontinued Reason: Order Changed 150 mg PO Q12H 180 tabs 3RF 09/17/24 1433 Date Anumekhi Musesohail Kang Signature: Date (if applicable) CC: Normal [facility] L3410.9992on 07-21-2024 [facility] Misc. COMMENT Normal . [facility] Comment on above: Order Comment: [id number] VITD2-D3 SUZY WOODARD Result Comment: Test Ordered: [id number] 25-Hydroxyvitamin D LCMS D2+D3 25-Hydroxy, Vitamin D 35 ng/mL ES Reference Range: . Reference Range: All Ages: Target levels 30 - 100 25-Hydroxy, Vitamin D-2 <1.0 ng/mL ES Reference Range: . This test was developed and its performance characteristics determined by [employer]. It has not been cleared or approved by the Food and Drug Administration. 25-Hydroxy, Vitamin D-3 35 ng/mL ES Reference Range: . This test was developed and its performance characteristics determined by [employer]. It has not been cleared or approved by the Food and Drug Administration. Performed at: [facility] [address] [place] [id number] Weed Burner: Justus Hodges MD, Phone: [phone] Performed at: [facility] [employer] [id number] Weed Burner: Onur Marcum PhD, Phone: [phone] Performed By: #### L 509.1000, L3410.9992 #### [facility] [address] [place], [address] L501.2276on 07-18-2024 Ionized Calcium 1.24 mmol/L Normal 1.09-1.30 [facility] Comment on above: Performed By: #### L 501.2276 #### [facility] [address] [place], [address] PTHINon 07-18-2024 PTH 65 pg/mL High 11-61 [facility] Comment on above: Performed By: #### L 509.1000, L3410.9992 #### [facility] [address] [place], [address] Absolute lymphocyte countOrd ered By: Clarisse Walden on 07-17-2024 Lymphocytes Auto (Unsp spec) [#/Vol] 1.72 10*3/uL 0.83-4.51 [facility] Absolute neutrophil countOrd ered By: Clarisse Walden on 07-17-2024 Neutrophils (Bld) [#/Vol] 6.2 10*3/uL 2.0-7.7 [facility] Anion gap in Serum or Plasma Ordered By: Clarisse Walden on 07-17-2024 Anion gap [Moles/Vol] 10 mmol/L 5- [facility] Automated lymphocyte count a s percentage of total leukocytesOrdered By: Clarisse Walden on 07-17-2024 Lymphocytes/100 WBC Auto (Unsp spec) 19.5 % [facility] BUN/creatinine ratioOrdered By: Clarisse Walden on 07-17-2024 Urea nitrogen/Creatinine [Mass ratio] 18.9 mg/mg - [facility] Basic Metabolic Profile (BMP )on 07-17-2024 BUN/CRE 18.9 RATIO Normal - [facility] Comment on above: Performed By: #### L 100.0100, L500.2500 #### [facility] [address] [place], [address] Calcium [Mass/Vol] 9.2 mg/dL Normal 7.6-11.0 [facility] Comment on above: Performed By: #### L 100.0100, L500.2500 #### [facility] [address] [place], [address] Chloride [Moles/Vol] 106 mmol/L Normal 98-108 [facility] Comment on above: Performed By: #### L 100.0100, L500.2500 #### [facility] [address] [place], [address] CO2 [Moles/Vol] 24.1 mmol/L Normal 21.0-32.0 [facility] Comment on above: Performed By: #### L 100.0100, L500.2500 #### [facility] [address] [place], [address] Creatinine [Mass/Vol] 1.14 mg/dL Normal 0.70-1.20 [facility] Comment on above: Performed By: #### L 100.0100, L500.2500 #### [facility] [address] [place], [address] GAP 10 Normal 5-15 [facility] Comment on above: Performed By: #### L 100.0100, L500.2500 #### [facility] [address] [place], [address] GFR/1.73 sq M.predicted among non-blacks MDRD (S/P/Bld) [Vol rate/Area] 50 mL/min/{1.73_m2} Low >60 [facility] Comment on above: Result Comment: mL/m in/1.73m2 CKD-EPI Creatinine Equation (2020) Performed By: #### L 100.0100, L500.2500 #### [facility] [address] [place], [address] Glucose [Mass/Vol] 103 mg/dL High 70-99 [facility] Comment on above: Performed By: #### L 100.0100, L500.2500 #### [facility] [address] [place], [address] Potassium [Moles/Vol] 4.8 mmol/L Normal 3.3-5.1 [facility] Comment on above: Result Comment: Hemo lysis present, Results??could be affected. ?? Performed By: #### L 100.0100, L500.2500 #### [facility] [address] [place], [address] Sodium [Moles/Vol] 140 mmol/L Normal 133-145 [facility] Comment on above: Performed By: #### L 100.0100, L500.2500 #### [facility] [address] [place], [address] Urea nitrogen [Mass/Vol] 22 mg/dL High 4-19 [facility] Comment on above: Performed By: #### L 100.0100, L500.2500 #### [facility] [address] [place], [address] Basophil percentageOrdered B y: Clarisse Walden on 07-17-2024 Basophils/100 WBC (Bld) 0.6 % 0-1 [facility] CBC W/Diff, Automatedon 06-20 Absolute Lymph 1.72 X10 3/uL Normal 0.83-4.51 [facility] Comment on above: Performed By: #### L 100.0100, L500.2500 #### [facility] [address] [place], [address] Absolute Neut 6.2 X10 3/uL Normal 2.0-7.7 [facility] Comment on above: Performed By: #### L 100.0100, L500.2500 #### [facility] [address] [place], [address] Basophils/100 WBC (Bld) 0.6 % Normal 0-1 [facility] Comment on above: Performed By: #### L 100.0100, L500.2500 #### [facility] [address] [place], [address] Eosinophils/100 WBC (Bld) 1.2 % Normal 0-5 [facility] Comment on above: Performed By: #### L 100.0100, L500.2500 #### [facility] [address] [place], [address] Erythrocyte distribution width (RBC) [Ratio] 13.3 % Normal 11.6-14.6 [facility] Comment on above: Performed By: #### L 100.0100, L500.2500 #### [facility] [address] [place], [address] Hematocrit (Bld) [Volume fraction] 43.1 % Normal 37-47 [facility] Comment on above: Performed By: #### L 100.0100, L500.2500 #### [facility] [address] [place], [address] Hemoglobin (Bld) [Mass/Vol] 14.1 g/dL Normal 12.0-15.0 [facility] Comment on above: Performed By: #### L 100.0100, L500.2500 #### [facility] [address] [place], [address] IG% 0.900 Normal 0.0-0.9 [facility] Comment on above: Result Comment: IG% - Immature Granulocytes (promyelocytes, myelocytes and metamyelocytes) > 1% indicates that a LEFT SHIFT is Present. Performed By: #### L 100.0100, L500.2500 #### [facility] [address] [place], [address] Lymphocytes/100 WBC (Bld) 19.5 % Normal 19-41 [facility] Comment on above: Performed By: #### L 100.0100, L500.2500 #### [facility] [address] [place], [address] MCH (RBC) [Entitic mass] 30.5 pg Normal 27.0-32.0 [facility] Comment on above: Performed By: #### L 100.0100, L500.2500 #### [facility] [address] [place], [address] MCHC (RBC) [Mass/Vol] 32.7 g/dL Normal 32-36 [facility] Comment on above: Performed By: #### L 100.0100, L500.2500 #### [facility] [address] [place], [address] MCV (RBC) [Entitic vol] 93.1 fL Normal 81-99 [facility] Comment on above: Performed By: #### L 100.0100, L500.2500 #### [facility] [address] [place], [address] Monocytes/100 WBC (Bld) 8.0 % Normal 0-10 [facility] Comment on above: Performed By: #### L 100.0100, L500.2500 #### [facility] [address] [place], [address] Neutrophils/100 WBC (Bld) 69.8 % Normal 47-70 [facility] Comment on above: Performed By: #### L 100.0100, L500.2500 #### [facility] [address] [place], [address] Nucleated RBC (Bld) [#/Vol] 0 10*3/uL Normal 0-5 [facility] Comment on above: Performed By: #### L 100.0100, L500.2500 #### [facility] [address] [place], [address] Platelet mean volume (Bld) [Entitic vol] 9.8 fL Normal 6.2-12.0 [facility] Comment on above: Performed By: #### L 100.0100, L500.2500 #### [facility] [address] [place], [address] Platelets (Bld) [#/Vol] 194 10*3/uL Normal 150-450 [facility] Comment on above: Performed By: #### L 100.0100, L500.2500 #### [facility] [address] [place], [address] RBC (Bld) [#/Vol] 4.63 10*6/uL Normal 4.2-5.[address] [facility] Comment on above: Performed By: #### L 100.0100, L500.2500 #### [facility] [address] [place], [address] RDW SD 45.5 fl High 35.1-43.9 [facility] Comment on above: Performed By: #### L 100.0100, L500.2500 #### [facility] [address] [place], [address] WBC (Bld) [#/Vol] 8.8 10*3/uL Normal 4.4-11.0 [facility] Comment on above: Performed By: #### L 100.0100, L500.2500 #### [facility] [address] [place], [place], [address] Carbon dioxide, total [Moles /volume] in Central venous bloodOrdered By: Clarisse Walden on 07-17-2024 CO2 [Moles/Vol] 24.1 mmol/L 21.0-32.0 [facility] Chloride assayOrdered By: Surjit Walden on 07-17-2024 Chloride [Moles/Vol] 106 mmol/L 98-108 [facility] Eosinophil percentageOrdered By: Clarisse Walden on 07-17-2024 Eosinophils/100 WBC (Bld) 1.2 % 0-5 [facility] Erythrocyte distribution wid th ratioOrdered By: Clarisse Walden on 07-17-2024 Erythrocyte distribution width (RBC) [Ratio] 13.3 % 11.6-14.6 [facility] Erythrocyte distribution wid th standard deviationOrdered By: Clarisse Walden on 07-17-2024 Erythrocyte distribution width (RBC) [Ratio] 45.5 fl High 35.1-43.9 [facility] Gastroenterology Visit Repor ton 07-17-2024 Gastroenterology Visit Report [facility] [address] [place] [address] OFFICE VISIT Date of Service: 07/17/24 MR#: [id number] Acct: [id number] Name: SHIRLEY SHULTZ Rep #: [id number] : 1945 Provider: JALEN foss Age/Sex: 79/F Location[place] [facility] [place] Status: Signed Intake Vital Signs 05/15/24 10:36 07/17/24 09:39 Height 5 ft 3 in 5 ft 3 in Weight: 196 lb 8 oz BMI 34.8 BP 116/76 Respiration 16 Pulse 66 Pulse Oximetry (%) 97 Oxygen Delivery Method room air Intake Visit Reasons: 6 WK FU Chief Complaint: follow-up Materials Technician Required: No Accompanied by: self Is patient in pain?: No Allergies dapagliflozin (From Farxiga) Allergy (Severe, Verified 07/17/24 09:36) Nausea/Vom/Diarrhea dronedarone (From Multaq) Allergy (Severe, Verified 07/17/24 09:36) [facility] [place] codeine Allergy (Intermediate, Verified 07/17/24 09:36) PT [...] year?: No Nurse's Note: Stool is black [facility] Medical History Right renal stone Cataracts, bilateral [...] use: alway (more content not included)... Normal [facility] Glomerular filtration rate ( GFR) estimation/1.73 sq m using serum, plasma, or whole bOrdered By: Clarisse Walden on 07-17-2024 GFR/1.73 sq M.predicted among non-blacks MDRD (S/P/Bld) [Vol rate/Area] 50 mL/min/{1.73_m2} Low >60 [facility] Comment on above: mL/min/1.73m2 CKD-EP I Creatinine Equation (2020) Hematocrit Auto (Bld) [Volum e fraction]Ordered By: Clarisse Walden on 07-17-2024 Hematocrit (Bld) [Volume fraction] 43.1 % 37-47 [facility] Hemoglobin measurementOrdere d By: Clarisse Walden on 07-17-2024 Hemoglobin (Bld) [Mass/Vol] 14.1 g/dL 12.0-15.0 [facility] Immature granulocytes/100 WB C Auto (Bld)Ordered By: Clarisse Walden on 07-17-2024 Immature granulocytes/100 WBC (Bld) 0.900 % 0.0-0.9 [facility] Comment on above: IG% - Immature Granu locytes (promyelocytes, myelocytes and metamyelocytes) > 1% indicates that a LEFT SHIFT is Present. MCV (mean corpuscular volume ) determinationOrdered By: Clarisse Walden on 07-17-2024 MCV (RBC) [Entitic vol] 93.1 fL 81-99 [facility] Mean corpuscular hemoglobin (MCH) determinationOrdered By: Clarisse Walden on 07-17-2024 MCH (RBC) [Entitic mass] 30.5 pg 27.0-32.0 [facility] Mean corpuscular hemoglobin concentration (MCHC) determinationOrdered By: Clarisse Walden on 07-17-2024 MCHC (RBC) [Mass/Vol] 32.7 g/dL 32-36 [facility] Mean platelet volume determi nationOrdered By: Clarisse Walden on 07-17-2024 Platelet mean volume (Bld) [Entitic vol] 9.8 fL 6.2-12.0 [facility] Monocyte percentageOrdered B y: Clarisse Walden on 07-17-2024 Monocytes/100 WBC (Bld) 8.0 % 0-10 [facility] Neutrophil percentageOrdered By: Clarisse Walden on 07-17-2024 Neutrophils/100 WBC (Bld) 69.8 % 47-70 [facility] Nucleated red blood cell per centageOrdered By: Clarisse Walden on 07-17-2024 Nucleated RBC/100 WBC (Bld) [Ratio] 0 % 0-5 [facility] Platelet countOrdered By: Surjit Walden on 07-17-2024 Platelets (Bld) [#/Vol] 194 10*3/uL 150-450 [facility] Potassium measurement (mass/ volume)Ordered By: Clarisse Walden on 07-17-2024 Potassium (Unsp spec) [Mass/Vol] 4.8 mmol/L 3.3-5.1 [facility] Comment on above: Hemolysis present, R esults could be affected. RBC Auto (Bld) [#/Vol]Ordere d By: Clarisse Walden on 07-17-2024 RBC (Bld) [#/Vol] 4.63 10*6/uL 4.2-5.[address] [facility] Serum creatinine measurement (mass/volume)Ordered By: Clarisse Walden on 07-17-2024 Creatinine [Mass/Vol] 1.14 mg/dL 0.70-1.20 [facility] Serum glucose measurement (m ass/volume)Ordered By: Clarisse Walden on 07-17-2024 Glucose [Mass/Vol] 103 mg/dL High 70-99 [facility] Serum or plasma calcium peyton urement (mass/volume)Ordered By: Clarisse Walden on 07-17-2024 Calcium [Mass/Vol] 9.2 mg/dL 7.6-11.0 [facility] Serum or plasma urea nitroge n measurement (mass/volume)Ordered By: Clarisse Walden on 07-17-2024 Urea nitrogen [Mass/Vol] 22 mg/dL High 4-19 [facility] Sodium levelOrdered By: Marcie Walden on 07-17-2024 Sodium [Moles/Vol] 140 mmol/L 133-145 [facility] White blood cell (WBC) count Ordered By: Clarisse Walden on 07-17-2024 WBC (Bld) [#/Vol] 8.8 10*3/uL 4.4-11.0 [facility] Esophagus Dual Contraston Esophagus Dual Contrast [facility] Imaging Services [address] [place] [address] Esophagus Dual Contrast MR#: [id number] Acct: [id number] Name: SHIRLEY SHULTZ Rep #: [id number] : 1945 F 79 From: Nacho nunes MD PCP: Dr. Bria Spencer MD Status: REG CLI Study: Esophagus Dual Contrast Date of Exam: 07/07/24 Exam# [id number] Ordering Dr: Clarisse Walden PROCEDURE: ESOPHAGUS DUAL [...] IMPRESSION: Unremarkable air contrast esophagram. Reading Location: [facility]--1 CC: REPORTING COORDINATORLiang Walden; Dr. Bria Spencer MD Wad Printing Machine Operator: Signed Normal [facility] Modified Barium Swallow [facility] 07-01-2024 Modified Barium Swallow Study [facility] Speech Pathology [address] [place] [address] Modified Barium Swallow Study MR#: [id number] Acct: [id number] Name: SHIRLEY SHULTZ Rep #: [id number] : 1945 79 From: Shital Hernandes M.A., CCC-BRIDGE ENGINEER Modified Barium Swallow Patient Information Study Date: [...] cup: Result: 2= enter airway/above vocal folds/ejected [place] Thick Liquid via large single sip: cup: [...] column o (more content not included)... Normal [facility] Gastroenterology Visit Repor ton 03-27-2025 Gastroenterology Visit Report [facility] Gastroenterology [address] [place] [address] OFFICE VISIT Date of Service: 05/15/24 MR#: [id number] Acct: [id number] Name: SHIRLEY SHULTZ Rep #: [id number] : 1945 Provider: JALEN foss Age/Sex: 79/F Location[place] [facility] Status: Signed Intake Vital Signs 08/21/23 06:28 [...] Verified 05/15/24 10:26) [facility] [place] codeine Allergy (Intermediate, Verified 05/15/24 10:26) PT [...] feels bloated. Has a hard time swallowing. [facility] Medical History Right renal stone Cataracts, bilateral [...] SHIRLEY AVALOS (more content not included)... Normal [facility] Shoulder min 2 Viewson 03-07 Shoulder min 2 Views [facility] Imaging Services [address] [place] [phone] Shoulder min 2 Views MR#: [id number] Acct: [id number] Name: SHIRLEY SHULTZ Rep #: [id number] : 1945 F 78 From: Helder pettit MD PCP: Dr. Bria Spencer MD Status: [facility] Study: Shoulder min 2 Views Date of Exam: 03/07/24 Exam# [id number] Ordering Dr: Bria Spencer MD :[id number] STUDY: X-RAY - LEFT SHOULDER REASON FOR [...] 10:38 EST Reading Location ID and State: [address] [place] [address] , Service support , CC: Dr. Bria Spencer MD Wad Printing Machine Operator: Signed Normal [facility] Shoulder min 2 Views [facility] Imaging Services [address] [place] [phone] Shoulder min 2 Views MR#: [id number] Acct: [id number] Name: SHIRLEY SHULTZ Rep #: [id number] : 1945 F 78 From: Helder pettit MD PCP: Dr. Bria Spencer MD Status: REG CLI Study: Shoulder min 2 Views Date of Exam: 03/07/24 Exam# [id number] Ordering Dr: Bria Spencer MD :[id number] STUDY: X-RAY - RIGHT SHOULDER REASON FOR [...] Signed: Helder Baumann MD at 10:39 EST , CC: Dr. Bria Spencer MD Wad Printing Machine Operator: Signed [facility] CNOVon 09-05-2023 [facility] Office Visit (AGGENS 4) SHIRLEY SHULTZ ([id number]) 1945 F Date Time Provider Department 09/05/23 [...] intact. DCI within normal limits. EGJOO per [place] Classification - concerning for possible achalasia Social: denies x3 PSHx: cardiac pacemaker placement (2020), cardioversion, cardiac catheterization, TL, detached retina repair, parathyroidectomy PAST MEDICAL HISTORY: PAST MEDICAL HISTORY Diagnosis Date Ambulates with cane Anticoagulant long-term use indication: stroke prevention atrial fibrillation Anxiety and depression Arthritis At risk for stroke [id number] = 3 (HTN, age, female gender) Atrophic [...] LIGATE FALLOPIAN TUBE 1982 MANOMETRY ESOPHAGEAL 06/22/2023 [place] PARATHYROIDECTOMY/EXPLORATIO N PARATHYROIDS REPAIR, DETACHED RETINA, LASER STRESS TEST 2018 FAMILY HISTORY: FAMILY HISTORY Problem Relation Age of Onset Heart Attack Mother Arthritis Mother Angioedema Mother Hypertension Mother other (artthritis) Mother Prostate Cancer Father Breast Cancer Sister Diabetes Brother Heart Failure Brother Heart Attack Brother Prostate Cancer Brother COPD Brother COPD Brother Hypertensi (more content not included)... Normal [facility] CNPNon 09-04-2023 CNPN Telephone (AGGENS4) SHIRLEY SHULTZ ([id number]) 1945 F Date Time Provider Department 09/04/23 ITA GARCIA AGGENS4 During your visit today, [...] Encounter Status:Closed by DOMINICK LEACH on 09/04/23 [facility] Thin prep Papanicolaou smear with manual screeningOrdered By: Win John on 06-12-2023 Thin prep Papanicolaou smear with manual screening 107 mg/dL 74-106 [facility] Comment on above: MANAGEMENT OF PATIEN T CARE PER NURSING PROTOCOL Absolute lymphocyte countOrd ered By: Ryan Townsend on 04-04-2023 Lymphocytes Auto (Unsp spec) [#/Vol] 1.09 10*3/uL 0.83-4.51 [facility] Automated lymphocyte count a s percentage of total leukocytesOrdered By: Ryan Townsend on 04-04-2023 Lymphocytes/100 WBC Auto (Unsp spec) 11.6 % 19-41 [facility] Basophil percentageOrdered B y: Ryan Townsend on 04-04-2023 Basophil percentage 10-25 SEEN /hpf 0-5 [facility] Lactate [Moles/Vol] 1.5 mmol/L 0.4-2.[address] [facility] Basophils/100 WBC (Bld) 0.3 % 0-1 [facility] Bilirubin [Mass/Vol] 1.00 mg/dL 0.20-1.00 [facility] Comment on above: For patients on eltr ombopag therapy, use of Dimension [place] TBIL is not recommended. Chloride [Moles/Vol] 107 mmol/L 98-107 [facility] Eosinophils/100 WBC (Bld) 0.3 % 0-5 [facility] Glucose [Mass/Vol] 163 mg/dL 74-106 [facility] Comment on above: Fasting Glucose resu lt greater than or equal to 126 mg/dL suggests DIABETES MELLITUS per A.D.A. criteria. Hemoglobin (Bld) [Mass/Vol] 16.3 g/dL 12.0-15.0 [facility] Monocytes/100 WBC (Bld) 7.1 % 0-10 [facility] Neutrophils (Bld) [#/Vol] 7.5 10*3/uL 2.0-7.7 [facility] Neutrophils/100 WBC (Bld) 80.1 % 47-70 [facility] Potassium [Moles/Vol] 4.2 mmol/L 3.5-5.1 [facility] Protein [Mass/Vol] 7.1 g/dL 6.4-8.2 [facility] Sodium [Moles/Vol] 137 mmol/L 136-145 [facility] WBC (Bld) [#/Vol] 9.4 10*3/uL 4.4-11.0 [facility] Bilirubin Test strip Ql (U)O rdered By: Ryan Townsend on 04-04-2023 Bilirubin Ql (U) Negative Negative [facility] Determination of erythrocyte mean corpuscular volume (MCV)Ordered By: Ryan Townsend on 04-04-2023 MCV (RBC) [Entitic vol] 93.6 fL 81-99 [facility] Direct bilirubinOrdered By: Ryan Townsend on 04-04-2023 Bilirubin.direct [Mass/Vol] 0.28 mg/dL 0.00-0.30 [facility] Erythrocyte distribution wid th ratioOrdered By: Ryan Townsend on 04-04-2023 Erythrocyte distribution width (RBC) [Ratio] 13.2 % 11.6-14.6 [facility] Erythrocyte distribution wid th standard deviationOrdered By: Ryan Townsend on 04-04-2023 Erythrocyte distribution width (RBC) [Entitic vol] 45.3 fL 35.1-43.9 [facility] Hematocrit Auto (Bld) [Volum e fraction]Ordered By: Ryan Townsend on 04-04-2023 Hematocrit (Bld) [Volume fraction] 48.3 % 37-47 [facility] Hyaline casts LM.LPF (Urine sed) [#/Area]Ordered By: Ryan Townsend on 04-04-2023 Hyaline casts (Urine sed) [#/Area] 5 /[LPF] 0-5 [facility] Immature granulocytes/100 WB C Auto (Bld)Ordered By: Ryan Townsend on 04-04-2023 Immature granulocytes/100 WBC (Bld) 0.600 % 0.0-0.9 [facility] Comment on above: IG% - Immature Granu locytes (promyelocytes, myelocytes and metamyelocytes) > 1% indicates that a LEFT SHIFT is Present. Ketones Test strip Ql (U)Ord ered By: Ryan Townsend on 04-04-2023 Ketones Ql (U) Negative Negative [facility] - Chemistry and C hemistry - challengeOrdered By: Ryan Townsend on 04-04-2023 ALP [Catalytic activity/Vol] 113 U/L 45-117 [facility] ALT [Catalytic activity/Vol] 62 U/L 13-56 [facility] CO2 [Moles/Vol] 28.0 mmol/L 21.0-32.0 [facility] Globulin (S) [Mass/Vol] 3.2 g/dL 2.2-4.2 [facility] Lipase [Catalytic activity/Vol] 44 U/L 13-75 [facility] Comment on above: Please note:LIPASE r evised reference range effective 22. New Lipase methodology. Expected to produce lower values than the previous assay method. NEW Reference Range: 13 - 75 U/L Urea nitrogen/Creatinine [Mass ratio] 14.6 mg/mg 10-20 [facility] - Hematology and Cell countsOrdered By: Ryan Townsend on 04-04-2023 MCH (RBC) [Entitic mass] 31.6 pg 27.0-32.0 [facility] MCHC (RBC) [Mass/Vol] 33.7 g/dL 32-36 [facility] Nucleated RBC/100 WBC (Bld) [Ratio] 0 % 0-5 [facility] Platelet mean volume (Bld) [Entitic vol] 10.7 fL 6.2-12.0 [facility] Platelets (Bld) [#/Vol] 188 10*3/uL 150-450 [facility] Mucus LM Ql (Urine sed)Order ed By: Ryan Townsend on 04-04-2023 Mucus Ql (Urine sed) 0 SEEN /hpf [facility] Nitrite Test strip Ql (U)Ord ered By: Ryan Townsend on 04-04-2023 Nitrite Ql (U) Negative Negative [facility] No Panel InformationOrdered By: Ryan Townsend on 04-04-2023 Urine RBC 0-5 SEEN /hpf 0-5 [facility] Estimated GFR (MDRD) Amer 41 mL/min >60 [facility] Comment on above: GFR Calc Estimated GFR (MDRD) Non-Af Amer 34 mL/min >60 [facility] Comment on above: Non- GFR Calc Troponin I High Sensitivity 16 pg/mL 3.0-54.0 [facility] Comment on above: Please Note: New Elidia t Units and Gender Specific Reference Ranges. For more information see Policy Stat Procedure [place] High Sensitivity Troponin (TNIH) and attachments. Protein Test strip Ql (U)Ord ered By: Ryan Townsend on 04-04-2023 Protein Ql (U) 100 mg/dl Negative [facility] RBC Auto (Bld) [#/Vol]Ordere d By: Ryan Townsend on 04-04-2023 RBC (Bld) [#/Vol] 5.16 10*6/uL 4.2-5.[address] [facility] Serum or plasma calcium peyton urement (mass/volume)Ordered By: Ryan Townsend on 04-04-2023 Calcium [Mass/Vol] 8.9 mg/dL 8.5-10.1 [facility] Serum or plasma creatinine m easurement (mass/volume)Ordered By: Ryan Townsend on 04-04-2023 Creatinine [Mass/Vol] 1.58 mg/dL 0.55-1.02 [facility] Comment on above: The validity of the calculated GFR & GFRAA in patients over 70 years has not been determined. Clinical correlation is essential. Serum or plasma urea nitroge n measurement (mass/volume)Ordered By: Ryan Townsend on 04-04-2023 Urea nitrogen [Mass/Vol] 23 mg/dL 7-18 [facility] Squamous epithelial cells de tection in urine sediment by light microscopyOrdered By: Ryan Townsend on 04-04-2023 Epithelial cells.squamous LM Ql (Urine sed) 5-10 SEEN /hpf 5-10 [facility] Thin prep Papanicolaou smear with manual screeningOrdered By: Ryan Townsend on 04-04-2023 Thin prep Papanicolaou smear with manual screening 3.9 g/dL 3.2-5.0 [facility] Thin prep Papanicolaou smear with manual screening 34 U/L 15-37 [facility] Thin prep Papanicolaou smear with manual screening 2 5-15 [facility] Urine blood detectionOrdered By: Ryan Townsend on 04-04-2023 RBC Ql (U) 25 /ul Negative [facility] Urine clarityOrdered By: Phil Townsend on 04-04-2023 Clarity (U) Sl. Cloudy Clear [facility] Urine color determinationOrd ered By: Ryan Townsend on 04-04-2023 Color (U) Yellow Yellow [facility] Urine glucose detectionOrder ed By: Ryan Townsend on 04-04-2023 Glucose Ql (U) Normal mg/dl Normal [facility] Urine leukocyte esterase det ection by dipstickOrdered By: Ryan Townsend on 04-04-2023 Leukocyte esterase Test strip Ql (U) 500 /ul Negative [facility] Urine pHOrdered By: Ryan chávez on 04-04-2023 pH (U) 5.0 [pH] 5.0 - 8.0 [facility] Urine sediment bacteria coun t by microscopy (number/high power field)Ordered By: Ryan Townsend on 04-04-2023 Bacteria LM.HPF (Urine sed) [#/Area] 1 /[HPF] None Seen [facility] Urine specific gravity measu rementOrdered By: Ryan Townsend on 04-04-2023 Specific gravity (U) [Rel density] 1.020 1.002-1.03 0 [facility] Urine urobilinogen measureme ntOrdered By: Ryan Townsend on 04-04-2023 Urobilinogen Ql (U) Normal mg/dl Normal [facility] Intact parathyroid hormone ( iPTH) measurementOrdered By: Azar Hammonds on 03-15-2023 Parathyrin.intact (Tissue fine needle aspirate) [Mass/Vol] 66.9 pg/mL 18.4-80.1 [facility] Serum or plasma calcium peyton urement (mass/volume)Ordered By: Azar Hammonds on 03-15-2023 Calcium [Mass/Vol] 9.5 mg/dL 8.5-10.1 [facility] Basophil percentageOrdered B y: Ambrose Byers on 03-08-2023 Hemoglobin (Bld) [Mass/Vol] 15.5 g/dL 12.0-15.0 [facility] WBC (Bld) [#/Vol] 7.4 10*3/uL 4.4-11.0 [facility] Determination of erythrocyte mean corpuscular volume (MCV)Ordered By: Ambrose Byers on 03-08-2023 MCV (RBC) [Entitic vol] 93.6 fL 81-99 [facility] Erythrocyte distribution wid th ratioOrdered By: Ambrose Byers on 03-08-2023 Erythrocyte distribution width (RBC) [Ratio] 13.0 % 11.6-14.6 [facility] Erythrocyte distribution wid th standard deviationOrdered By: Ambrose Byers on 03-08-2023 Erythrocyte distribution width (RBC) [Entitic vol] 45.1 fL 35.1-43.9 [facility] Hematocrit Auto (Bld) [Volum e fraction]Ordered By: Ambrose Byers on 03-08-2023 Hematocrit (Bld) [Volume fraction] 48.2 % 37-47 [facility] Intact parathyroid hormone ( iPTH) measurementOrdered By: Azar Hammonds on 03-08-2023 Parathyrin.intact (Tissue fine needle aspirate) [Mass/Vol] 10.0 pg/mL 18.4-80.1 [facility] - Hematology and Cell countsOrdered By: Ambrose Byers on 03-08-2023 MCH (RBC) [Entitic mass] 30.1 pg 27.0-32.0 [facility] MCHC (RBC) [Mass/Vol] 32.2 g/dL 32-36 [facility] Platelets (Bld) [#/Vol] 174 10*3/uL 150-450 [facility] Platelet mean volume [place] (Bld) [Entitic vol]Ordered By: Ambrose Byers on 03-08-2023 Platelet mean volume (Bld) [Entitic vol] 10.3 fL 6.2-12.0 [facility] RBC Auto (Bld) [#/Vol]Ordere d By: Ambrose Byers on 03-08-2023 RBC (Bld) [#/Vol] 5.15 10*6/uL 4.2-5.[address] [facility] Thin prep Papanicolaou smear with manual screeningOrdered By: Azar Hammonds on 03-08-2023 Thin prep Papanicolaou smear with manual screening 119 mg/dL 74-106 [facility] Comment on above: MANAGEMENT OF PATIEN T CARE PER NURSING PROTOCOL Basophil percentageOrdered B y: Bria Spencer on 02-20-2023 Bilirubin [Mass/Vol] 0.80 mg/dL 0.20-1.00 [facility] Comment on above: For patients on eltr ombopag therapy, use of Dimension [place] TBIL is not recommended. Chloride [Moles/Vol] 108 mmol/L 98-107 [facility] Glucose [Mass/Vol] 116 mg/dL 74-106 [facility] Comment on above: Fasting Glucose resu lt from 100 to 125 mg/dL suggests IMPAIRED HOMEOSTASIS per A.D.A. criteria. Potassium [Moles/Vol] 4.3 mmol/L 3.5-5.1 [facility] Protein [Mass/Vol] 6.7 g/dL 6.4-8.2 [facility] Sodium [Moles/Vol] 140 mmol/L 136-145 [facility] Laboratory - Chemistry and C hemistry - challengeOrdered By: Bria Spencer on 02-20-2023 ALP [Catalytic activity/Vol] 83 U/L 45-117 [facility] ALT [Catalytic activity/Vol] 19 U/L 13-56 [facility] CO2 [Moles/Vol] 28.0 mmol/L 21.0-32.0 [facility] Globulin (S) [Mass/Vol] 3.1 g/dL 2.2-4.2 [facility] Urea nitrogen/Creatinine [Mass ratio] 14.2 mg/mg 10-20 [facility] No Panel InformationOrdered By: Bria Spencer on 02-20-2023 Ionized Calcium 5.23 mg/dL 4.36-5.20 [facility] Estimated GFR (MDRD) Amer 56 mL/min >60 [facility] Comment on above: GFR Calc Estimated GFR (MDRD) Non-Af Amer 46 mL/min >60 [facility] Comment on above: Non- GFR Calc Parathyroid Hormone (Intact) 211.2 pg/mL 18.4-80.1 [facility] Vitamin D 25-Hydroxy 36.9 ng/mL [facility] Comment on above: Vitamin D 25(OH) Sta tus Range Deficiency <20 ng/mL (50nmol/L) Insufficiency 20 - 30 ng/mL (50 - 75 nmol/L) Sufficiency 30 - 100 ng/mL (75 - 250 nmol/L) Toxicity >100 ng/mL (>250 nmol/L) Serum or plasma albumin peyton urement (mass/volume)Ordered By: Bria Spencer on 02-20-2023 Albumin [Mass/Vol] 3.6 g/dL 3.2-5.0 [facility] Serum or plasma albumin/glob ulin mass ratioOrdered By: Bria Spencer on 02-20-2023 Albumin/Globulin [Mass ratio] 1.2 {ratio} 0.9-2.4 [facility] Serum or plasma calcium peyton urement (mass/volume)Ordered By: Bria Spencer on 02-20-2023 Calcium [Mass/Vol] 9.4 mg/dL 8.5-10.1 [facility] Serum or plasma creatinine m easurement (mass/volume)Ordered By: Bria Spencer on 02-20-2023 Creatinine [Mass/Vol] 1.20 mg/dL 0.55-1.02 [facility] Comment on above: The validity of the calculated GFR & GFRAA in patients over 70 years has not been determined. Clinical correlation is essential. Serum or plasma urea nitroge n measurement (mass/volume)Ordered By: Bria Spencer on 02-20-2023 Urea nitrogen [Mass/Vol] 17 mg/dL 7-18 [facility] Thin prep Papanicolaou smear with manual screeningOrdered By: Bria Spencer on 02-20-2023 Thin prep Papanicolaou smear with manual screening 15 U/L 15-37 [facility] Thin prep Papanicolaou smear with manual screening 4 5-15 [facility] Basophil percentageOrdered B y: Valerie Bharathbarry on 11-08-2022 Bilirubin [Mass/Vol] 1.20 mg/dL 0.20-1.00 [facility] Comment on above: For patients on eltr ombopag therapy, use of Dimension [place] TBIL is not recommended. Chloride [Moles/Vol] 103 mmol/L 98-107 [facility] Glucose [Mass/Vol] 169 mg/dL 74-106 [facility] Comment on above: Fasting Glucose resu lt greater than or equal to 126 mg/dL suggests DIABETES MELLITUS per A.D.A. criteria. Potassium [Moles/Vol] 4.8 mmol/L 3.5-5.1 [facility] Protein [Mass/Vol] 7.5 g/dL 6.4-8.2 [facility] Sodium [Moles/Vol] 137 mmol/L 136-145 [facility] - Chemistry and C hemistry - challengeOrdered By: Valerie Garber on 11-08-2022 ALP [Catalytic activity/Vol] 82 U/L 45-117 [facility] ALT [Catalytic activity/Vol] 31 U/L 13-56 [facility] CO2 [Moles/Vol] 29.0 mmol/L 21.0-32.0 [facility] Globulin (S) [Mass/Vol] 3.8 g/dL 2.2-4.2 [facility] Urea nitrogen/Creatinine [Mass ratio] 18.4 mg/mg 10-20 [facility] No Panel InformationOrdered By: Valerie Garber on 11-08-2022 Ionized Calcium 5.56 mg/dL 4.36-5.20 [facility] Estimated GFR (MDRD) Amer 67 mL/min >60 [facility] Comment on above: GFR Calc Estimated GFR (MDRD) Non-Af Amer 55 mL/min >60 [facility] Comment on above: Non- GFR Calc Parathyroid Hormone (Intact) 168.4 pg/mL 18.4-80.1 [facility] Vitamin D 25-Hydroxy 32.1 ng/mL [facility] Comment on above: Vitamin D 25(OH) Sta tus Range Deficiency <20 ng/mL (50nmol/L) Insufficiency 20 - 30 ng/mL (50 - 75 nmol/L) Sufficiency 30 - 100 ng/mL (75 - 250 nmol/L) Toxicity >100 ng/mL (>250 nmol/L) Serum or plasma albumin peyton urement (mass/volume)Ordered By: Valerie Garber on 11-08-2022 Albumin [Mass/Vol] 3.7 g/dL 3.2-5.0 [facility] Serum or plasma albumin/glob ulin mass ratioOrdered By: Valerie Garber on 11-08-2022 Albumin/Globulin [Mass ratio] 1.0 {ratio} 0.9-2.4 [facility] Serum or plasma calcium peyton urement (mass/volume)Ordered By: Valerie Garber on 11-08-2022 Calcium [Mass/Vol] 10.1 mg/dL 8.5-10.1 [facility] Serum or plasma creatinine m easurement (mass/volume)Ordered By: Valerie Garber on 11-08-2022 Creatinine [Mass/Vol] 1.03 mg/dL 0.55-1.02 [facility] Comment on above: The validity of the calculated GFR & GFRAA in patients over 70 years has not been determined. Clinical correlation is essential. Serum or plasma urea nitroge n measurement (mass/volume)Ordered By: Valerie Garber on 11-08-2022 Urea nitrogen [Mass/Vol] 19 mg/dL 7-18 [facility] Thin prep Papanicolaou smear with manual screeningOrdered By: Valerie Garber on 11-08-2022 Thin prep Papanicolaou smear with manual screening 13 U/L 15-37 [facility] Thin prep Papanicolaou smear with manual screening 5 5-15 [facility] Basophil percentageOrdered B y: Valerie Garber on 09-15-2022 Bilirubin [Mass/Vol] 0.50 mg/dL 0.20-1.00 [facility] Comment on above: For patients on eltr ombopag therapy, use of Dimension [place] TBIL is not recommended. Chloride [Moles/Vol] 105 mmol/L 98-107 [facility] Glucose [Mass/Vol] 171 mg/dL 74-106 [facility] Comment on above: Fasting Glucose resu lt greater than or equal to 126 mg/dL suggests DIABETES MELLITUS per A.D.A. criteria. Potassium [Moles/Vol] 4.5 mmol/L 3.5-5.1 [facility] Protein [Mass/Vol] 7.2 g/dL 6.4-8.2 [facility] Sodium [Moles/Vol] 139 mmol/L 136-145 [facility] Laboratory - Chemistry and C hemistry - challengeOrdered By: Valerie Garber on 09-15-2022 ALP [Catalytic activity/Vol] 90 U/L 45-117 [facility] ALT [Catalytic activity/Vol] 21 U/L 13-56 [facility] CO2 [Moles/Vol] 29.0 mmol/L 21.0-32.0 [facility] Globulin (S) [Mass/Vol] 3.6 g/dL 2.2-4.2 [facility] Urea nitrogen/Creatinine [Mass ratio] 13.7 mg/mg 10-20 [facility] No Panel InformationOrdered By: Valerie Garber on 09-15-2022 Estimated GFR (MDRD) Amer 58 mL/min >60 [facility] Comment on above: GFR Calc Estimated GFR (MDRD) Non-Af Amer 48 mL/min >60 [facility] Comment on above: Non- GFR Calc Ionized Calcium TNP [facility] Comment on above: Test not performedSP ECIMEN NOT COLLECTED PROPERLY OR ORDERED CORRECTLY Miscellaneous Test See comment [facility] Comment on above: TEST RESULT LIMITSPT HrP (PTH-Related Peptide) <2.0 pmol/LThis test was developed and its performance characteristicsdetermined by [employer]. It has not been cleared or approvedby the Food and Drug Administration.Reference Range:All Ages: <2.0The PTHrP assay should not be used to exclude cancer orscreen tumor patients for humoral hypercalcemia ofmalignancy (HHM). The results should always be assessed inconjunction with the patient's medical history, clinicalexamination, and other findings. If test results areclinically discordant, please contact the laboratory. TESTING PERFORMED AT [facility]. ORIGINAL REPORT ON FILE IN LAB CONTAINS ADDITIONAL TEST SITE INFORMATION. Parathyroid Hormone (Intact) 232.9 pg/mL 18.4-80.1 [facility] Vitamin D 25-Hydroxy 18.4 ng/mL [facility] Comment on above: Vitamin D 25(OH) Sta tus Range Deficiency <20 ng/mL (50nmol/L) Insufficiency 20 - 30 ng/mL (50 - 75 nmol/L) Sufficiency 30 - 100 ng/mL (75 - 250 nmol/L) Toxicity >100 ng/mL (>250 nmol/L) Serum or plasma albumin peyton urement (mass/volume)Ordered By: Valerie Garber on 09-15-2022 Albumin [Mass/Vol] 3.6 g/dL 3.2-5.0 [facility] Serum or plasma albumin/glob ulin mass ratioOrdered By: Valerie Garber on 09-15-2022 Albumin/Globulin [Mass ratio] 1.0 {ratio} 0.9-2.4 [facility] Serum or plasma calcitriol m easurement (mass/volume)Ordered By: Valerie Garber on 09-15-2022 1,25-dihydroxyvitamin D3 [Mass/Vol] 55.9 pg/mL 24.8-81.5 [facility] Comment on above: Performed at: [facility] - [address] [id number] Director: Ana Soto MD, Phone: [phone] Serum or plasma calcium peyton urement (mass/volume)Ordered By: Valerie Garber on 09-15-2022 Calcium [Mass/Vol] 9.8 mg/dL 8.5-10.1 [facility] Serum or plasma creatinine m easurement (mass/volume)Ordered By: Valerie Garber on 09-15-2022 Creatinine [Mass/Vol] 1.17 mg/dL 0.55-1.02 [facility] Comment on above: The validity of the calculated GFR & GFRAA in patients over 70 years has not been determined. Clinical correlation is essential. Serum or plasma urea nitroge n measurement (mass/volume)Ordered By: Valerie Garber on 09-15-2022 Urea nitrogen [Mass/Vol] 16 mg/dL 7-18 [facility] Thin prep Papanicolaou smear with manual screeningOrdered By: Valerie Garber on 09-15-2022 Thin prep Papanicolaou smear with manual screening 13 U/L 15-37 [facility] Thin prep Papanicolaou smear with manual screening 5 5-15 [facility] Serum or plasma calcium peyton urement (mass/volume)Ordered By: Ninfa Mejia on 08-18-2022 Calcium [Mass/Vol] 10.3 mg/dL 8.5-10.1 [facility] Color of specimen determinat ionOrdered By: Ninfa Mejia on 06-29-2022 Color (Unsp spec) Not Reportable [facility] Measurement of weight of sto neOrdered By: Ninfa Mejia on 06-29-2022 Weight (Stone) Not Reportable [facility] Origin of StoneOrdered By: Chava Mejia on 06-29-2022 Origin Nom (Stone) See comment [facility] Comment on above: TEST RESULT LIMITSSt [...] separate coverComment: Physician questions regarding [facility] at: [phone].Please note: Calculi report will follow via computer, mail or courierdelivery.Disclaimer: This test was developed and its performance characteristicsdetermined by [employer]. It has not been cleared or approvedby the Food and Drug Administration. TESTING PERFORMED AT [facility]. ORIGINAL REPORT ON FILE IN LAB CONTAINS ADDITIONAL TEST SITE INFORMATION. Size of stoneOrdered By: Rosa Mejia on 06-29-2022 Size (Stone) [Entitic vol] Not Reportable [facility] Basophil percentageOrdered B y: Dr. Mejia on 06-09-2022 Chloride [Moles/Vol] 108 mmol/L 98-107 [facility] Glucose [Mass/Vol] 130 mg/dL 74-106 [facility] Comment on above: Fasting Glucose resu lt greater than or equal to 126 mg/dL suggests DIABETES MELLITUS per A.D.A. criteria. Potassium [Moles/Vol] 4.1 mmol/L 3.5-5.1 [facility] Sodium [Moles/Vol] 137 mmol/L 136-145 [facility] WBC (Bld) [#/Vol] 11.0 10*3/uL 4.4-11.[address] [facility] Blood erythrocytes count (nu mber/volume)Ordered By: Dr. Mejia on 06-09-2022 RBC (Bld) [#/Vol] 4.74 10*6/uL 4.2-5.[address] [facility] Blood hemoglobin measurement (mass/volume)Ordered By: Dr. Mejia on 06-09-2022 Hemoglobin (Bld) [Mass/Vol] 14.3 g/dL 12.0-15.0 [facility] Blood platelet mean volumeOr dered By: Dr. Mejia on 06-09-2022 Platelet mean volume (Bld) [Entitic vol] 10.4 fL 6.2-12.0 [facility] Determination of erythrocyte mean corpuscular volume (MCV)Ordered By: Dr. Mejia on 06-09-2022 MCV (RBC) [Entitic vol] 92.0 fL 81-99 [facility] Hematocrit Auto (Bld) [Volum e fraction]Ordered By: Dr. Mejia on 06-09-2022 Hematocrit (Bld) [Volume fraction] 43.6 % 37-47 [facility] Laboratory - Chemistry and C hemistry - challengeOrdered By: Dr. Mejia on 06-09-2022 CO2 [Moles/Vol] 25.0 mmol/L 21.0-32.0 [facility] Urea nitrogen/Creatinine [Mass ratio] 17.2 mg/mg 10-20 [facility] Laboratory - Hematology and Cell countsOrdered By: Dr. Mejia on 06-09-2022 Erythrocyte distribution width (RBC) [Entitic vol] 45.9 fL 35.1-43.9 [facility] Erythrocyte distribution width (RBC) [Ratio] 13.4 % 11.6-14.6 [facility] MCH (RBC) [Entitic mass] 30.2 pg 27.0-32.0 [facility] MCHC Auto (RBC) [Mass/Vol]Or dered By: Dr. Mejia on 06-09-2022 MCHC (RBC) [Mass/Vol] 32.8 g/dL 32-36 [facility] No Panel InformationOrdered By: Dr. Mejia on 06-09-2022 Estimated GFR (MDRD) Amer 55 mL/min >60 [facility] Comment on above: GFR Calc Estimated GFR (MDRD) Non-Af Amer 46 mL/min >60 [facility] Comment on above: Non- GFR Calc Platelets bldOrdered By: Dr. Mejia on 06-09-2022 Platelets (Bld) [#/Vol] 173 10*3/uL 150-450 [facility] Serum or plasma calcium peyton urement (mass/volume)Ordered By: Dr. Mejia on 06-09-2022 Calcium [Mass/Vol] 9.8 mg/dL 8.5-10.1 [facility] Serum or plasma creatinine m easurement (mass/volume)Ordered By: Dr. Mejia on 06-09-2022 Creatinine [Mass/Vol] 1.22 mg/dL 0.55-1.02 [facility] Comment on above: The validity of the calculated GFR & GFRAA in patients over 70 years has not been determined. Clinical correlation is essential. Serum or plasma urea nitroge n measurement (mass/volume)Ordered By: Dr. Mejia on 06-09-2022 Urea nitrogen [Mass/Vol] 21 mg/dL 7-18 [facility] Thin prep Papanicolaou smear with manual screeningOrdered By: Dr. Mejia on 06-09-2022 Thin prep Papanicolaou smear with manual screening 4 5-15 [facility] Cytology report of Body flui d Cyto stainOrdered By: Dr. Mejia on 06-08-2022 Cytology report Cyto stain Doc (Body fld) SEE PATHOLOGY REPORT [facility] Comment on above: Specimen submitted t o Anatomical Pathology Department for testing. Basophil percentageOrdered B y: Dr. Mejia on 02-21-2022 Chloride [Moles/Vol] 104 mmol/L 98-107 [facility] Glucose [Mass/Vol] 148 mg/dL 74-106 [facility] Comment on above: Fasting Glucose resu lt greater than or equal to 126 mg/dL suggests DIABETES MELLITUS per A.D.A. criteria. Potassium [Moles/Vol] 4.4 mmol/L 3.5-5.1 [facility] Sodium [Moles/Vol] 138 mmol/L 136-145 [facility] Cytology report of Body flui d Cyto stainOrdered By: Dr. Mejia on 02-21-2022 Cytology report Cyto stain Doc (Body fld) SEE PATHOLOGY REPORT [facility] Comment on above: Specimen submitted t o Anatomical Pathology Department for testing. Laboratory - Chemistry and C hemistry - challengeOrdered By: Dr. Mejia on 02-21-2022 CO2 [Moles/Vol] 29.0 mmol/L 21.0-32.0 [facility] Urea nitrogen/Creatinine [Mass ratio] 14.5 mg/mg 12-08 [facility] No Panel InformationOrdered By: Dr. Mejia on 02-21-2022 Estimated GFR (MDRD) Amer 54 mL/min >60 [facility] Comment on above: GFR Calc Estimated GFR (MDRD) Non-Af Amer 45 mL/min >60 [facility] Comment on above: Non- GFR Calc Serum or plasma calcium peyton urement (mass/volume)Ordered By: Dr. Mejia on 02-21-2022 Calcium [Mass/Vol] 9.8 mg/dL 8.5-10.1 [facility] Serum or plasma creatinine m easurement (mass/volume)Ordered By: Dr. Mejia on 02-21-2022 Creatinine [Mass/Vol] 1.24 mg/dL 0.55-1.02 [facility] Comment on above: The validity of the calculated GFR & GFRAA in patients over 70 years has not been determined. Clinical correlation is essential. Serum or plasma urea nitroge n measurement (mass/volume)Ordered By: Dr. Mejia on 02-21-2022 Urea nitrogen [Mass/Vol] 18 mg/dL 7-18 [facility] Thin prep Papanicolaou smear with manual screeningOrdered By: Dr. Mejia on 02-21-2022 Thin prep Papanicolaou smear with manual screening 5 5-15 [facility] Culture, urineOrdered By: Dr Jayson Spencer on 01-22-2022 Bacteria identified Cx Nom (U) Positive [facility] Absolute lymphocyte counton 07-15-2021 Lymphocytes Auto (Unsp spec) [#/Vol] 0.72 10*3/uL 0.83-4.51 [facility] Work Phone: Basophil percentageon 2021 Basophils/100 WBC (Bld) 0.3 % 0-1 [facility] Work Phone: Bilirubin [Mass/Vol] 0.70 mg/dL 0.20-1.00 [facility] Work Phone: Comment on above: For patients on eltr ombopag therapy, use of Dimension [place] TBIL is not recommended. Chloride [Moles/Vol] 109 mmol/L 98-107 [facility] Work Phone: Eosinophils/100 WBC (Bld) 0.5 % 0-5 [facility] Work Phone: Glucose [Mass/Vol] 156 mg/dL 74-106 [facility] Work Phone: Comment on above: Fasting Glucose resu lt greater than or equal to 126 mg/dL suggests DIABETES MELLITUS per A.D.A. criteria. Neutrophils (Bld) [#/Vol] 6.0 10*3/uL 2.0-7.7 [facility] Work Phone: Neutrophils/100 WBC (Bld) 80.3 % 47-70 [facility] Work Phone: Potassium [Moles/Vol] 4.3 mmol/L 3.5-5.1 [facility] Work Phone: [phone] Comment on above: Slight Hemolysis, Re sult may be falsely increased. Protein [Mass/Vol] 6.7 g/dL 6.4-8.2 [facility] Work Phone: [phone] Sodium [Moles/Vol] 137 mmol/L 136-145 [facility] Work Phone: WBC (Bld) [#/Vol] 7.5 10*3/uL 4.4-11.0 [facility] Work Phone: Blood erythrocytes count (nu mber/volume)on 07-15-2021 RBC (Bld) [#/Vol] 4.47 10*6/uL 4.2-5.[address] [facility] Work Phone: [phone] Blood hemoglobin measurement (mass/volume)on 07-15-2021 Hemoglobin (Bld) [Mass/Vol] 13.3 g/dL 12.0-15.0 [facility] Work Phone: Blood lymphocytes/100 leukoc yteson 07-15-2021 Lymphocytes/100 WBC (Bld) 9.6 % 19-41 [facility] Work Phone: Blood monocytes/100 leukocyt eson 07-15-2021 Monocytes/100 WBC (Bld) 8.8 % 0-10 [facility] Work Phone: Blood platelet mean volumeon 07-15-2021 Platelet mean volume (Bld) [Entitic vol] 11.2 fL 6.2-12.0 [facility] Work Phone: Determination of erythrocyte mean corpuscular volume (MCV)on 07-15-2021 MCV (RBC) [Entitic vol] 90.4 fL 81-99 [facility] Work Phone: Hematocrit Auto (Bld) [Volum e fraction]on 07-15-2021 Hematocrit (Bld) [Volume fraction] 40.4 % 37-47 [facility] Work Phone: [phone] Laboratory - Chemistry and C hemistry - challengeon 07-15-2021 ALP [Catalytic activity/Vol] 94 U/L 45-117 [facility] Work Phone: ALT [Catalytic activity/Vol] 54 U/L 13-56 [facility] Work Phone: CO2 [Moles/Vol] 22.0 mmol/L 21.0-32.0 [facility] Work Phone: [phone] Globulin (S) [Mass/Vol] 3.4 g/dL 2.2-4.2 [facility] Work Phone: [phone] Lipase [Catalytic activity/Vol] 71 U/L 73-393 [facility] Work Phone: [phone] Urea nitrogen/Creatinine [Mass ratio] 11.6 mg/mg 10-20 [facility] Work Phone: Laboratory - Hematology and Cell countson 07-15-2021 Erythrocyte distribution width (RBC) [Entitic vol] 44.2 fL 35.1-43.9 [facility] Work Phone: [phone] Erythrocyte distribution width (RBC) [Ratio] 13.5 % 11.6-14.6 [facility] Work Phone: [phone] Immature granulocytes/100 WBC (Bld) 0.500 % 0.0-0.9 [facility] Work Phone: [phone] Comment on above: IG% - Immature Granu locytes (promyelocytes, myelocytes and metamyelocytes) > 1% indicates that a LEFT SHIFT is Present. MCH (RBC) [Entitic mass] 29.8 pg 27.0-32.0 [facility] Work Phone: [phone] Nucleated RBC/100 WBC (Bld) [Ratio] 0 % 0-5 [facility] Work Phone: [phone] Laboratory - Microbiology an d Antimicrobial susceptibilityon 07-15-2021 SARS-CoV-2 (COVID-19) RNA MICHAEL+probe Ql (Unsp spec) Detected [facility] Work Phone: [phone] MCHC Auto (RBC) [Mass/Vol]on 07-15-2021 MCHC (RBC) [Mass/Vol] 32.9 g/dL 32-36 [facility] Work Phone: No Panel Informationon 07-15 Estimated Creatinine Clearance Calc 38.05 ml/min [facility] Work Phone: Estimated GFR (MDRD) Amer 61 mL/min >60 [facility] Work Phone: Comment on above: GFR Calc Estimated GFR (MDRD) Non-Af Amer 51 mL/min >60 [facility] Work Phone: Comment on above: Non- GFR Calc Influenza Types A,B Rapid (Clinic) Not detected [facility] Work Phone: Platelets bldon 07-15-2021 Platelets (Bld) [#/Vol] 141 10*3/uL 150-450 [facility] Work Phone: Serum or plasma albumin peyton urement (mass/volume)on 07-15-2021 Albumin [Mass/Vol] 3.3 g/dL 3.2-5.0 [facility] Work Phone: Serum or plasma albumin/glob ulin mass ratioon 07-15-2021 Albumin/Globulin [Mass ratio] 1.0 {ratio} 0.9-2.4 [facility] Work Phone: Serum or plasma calcium peyton urement (mass/volume)on 07-15-2021 Calcium [Mass/Vol] 9.2 mg/dL 8.5-10.1 [facility] Work Phone: Serum or plasma creatinine m easurement (mass/volume)on 07-15-2021 Creatinine [Mass/Vol] 1.12 mg/dL 0.55-1.02 [facility] Work Phone: Comment on above: The validity of the calculated GFR & GFRAA in patients over 70 years has not been determined. Clinical correlation is essential. Serum or plasma urea nitroge n measurement (mass/volume)on 07-15-2021 Urea nitrogen [Mass/Vol] 13 mg/dL 7-18 [facility] Work Phone: Thin prep Papanicolaou smear with manual screeningon 07-15-2021 Thin prep Papanicolaou smear with manual screening 38 U/L 15-37 [facility] Work Phone: Comment on above: Slight Hemolysis, Re sult may be falsely increased. Thin prep Papanicolaou smear with manual screening 6 5-15 [facility] Work Phone: CNOVon 11-16-2020 CNOV Office Visit (UCWSTR ) SHIRLEY SHULTZ ([id number]) 1945 F Date Time Provider Department 11/16/20 10:45 AM JOHANA KNIGHT [facility] During your visit today, we recorded the [...] Discussed expected course of illness Johana Knight APRN.CNP [facility] PATIENT INFO BEE AND INSECT [...] in t (more content not included)... Normal [facility] Wound Culture/Stainon 2020 Wound Culture/Stain Smear Result - Test sent to [facility]. Account Credited Culture Result - Test sent to [facility]. Account Credited Normal [facility] Dietary management education, guidance, and counseling (procedure) yes Invalid Interpretation Code [employer] Work Phone: Documentation of current medications (procedure) Done Invalid Interpretation Code [employer] Work Phone: Fall risk assessment No Invalid Interpretation Code [employer] Work Phone: Chart Maintenanceon 07-01-19 17 Left ventricular Ejection fraction 60 % Invalid Interpretation Code [employer] Work Phone: Office Visiton 06-30-2016 Dietary management education, guidance, and counseling (procedure) yes Invalid Interpretation Code [employer] Work Phone: Documentation of current medications (procedure) Done Invalid Interpretation Code [employer] Phone: [phone] Fall risk assessment No Invalid Interpretation Code [employer] Work Phone: [phone] Protein mass conc Done [employer] Work Phone: [phone] Replaced Document: Sultana Morataya 06-30-2016 BUN (urea nitrogen) Sinus Bradycardia -F irst degree A-V block Mima = 248-RSR(V1) -possible incomplete right bundle branch block and anterior fascicular block. ABNORMAL Invalid Interpretation Code [employer] Phone: [phone] EKG QRS axis -39 deg Invalid Interpretation Code [employer] Phone: [phone] GE use only - for [employer] import when terms are not otherwise specified 405 ms Invalid Interpretation Code [employer] Phone: [phone] Interpretation Sinus Bradycardia -F irst degree A-V block Mima = 248-RSR(V1) -possible incomplete right bundle branch block and anterior fascicular block. ABNORMAL [employer] Phone: P [place] 72 deg Invalid Interpretation Code [employer] Phone: [phone] P wave axis, electrocardiogram 72 deg Invalid Interpretation Code [employer] Phone: NV Interval 248 ms Invalid Interpretation Code [employer] Phone: NV interval, electrocardiogram 248 ms Invalid Interpretation Code [employer] Phone: Pulse (Heart Rate) 57 /min Invalid Interpretation Code [employer] Phone: QRS axis, electrocardiogram -39 deg Invalid Interpretation Code [employer] Phone: QRS Duration 104 ms Invalid Interpretation Code [employer] Phone: QRS duration, electrocardiogram 104 ms Invalid Interpretation Code [employer] Phone: QT Interval new path ms Invalid Interpretation Code [employer] Phone: QT interval, electrocardiogram new path ms Invalid Interpretation Code [employer] Phone: QTc Schmidt 405 ms Invalid Interpretation Code [employer] Phone: [phone] T [place] 47 deg Invalid Interpretation Code [employer] Phone: [phone] T wave axis, electrocardiogram 47 deg Invalid Interpretation Code [employer] Phone: [phone] Office Visiton 12-28-2015 Documentation of current medications (procedure) Done Invalid Interpretation Code [employer] Phone: [phone] Office Visiton 09-20-2015 Dietary management education, guidance, and counseling (procedure) yes Invalid Interpretation Code [employer] Phone: [phone] Tobacco smoking status NHIS Never Invalid Interpretation Code [employer] Phone: [phone] Tobacco smoking status NHIS Never smoker [employer] Phone: [phone] Tobacco use [facility] Never smoker Invalid Interpretation Code [employer] Phone: [phone] Office Visiton 11-19-2014 General cardiovascular disease 10Y risk [#] [place].Marylou'Agostbrendon 9 % Invalid Interpretation Code [employer] Phone: [phone] Replaced Document: Sultana Patterson CG Observationson 11-19-2014 electrocardiogram interpretation Sinus Rhythm -First degree A-V block Mima = 230- Negative precordial T-waves. BORDERLINE RHYTHM Invalid Interpretation Code [employer] Phone: [phone] GE use only - for [employer] import when terms are not otherwise specified 411 ms Invalid Interpretation Code [employer] Phone: [phone] P wave axis, electrocardiogram 59 deg Invalid Interpretation Code [employer] Phone: [phone] NV interval, electrocardiogram 230 ms Invalid Interpretation Code [employer] Phone: [phone] Pulse (Heart Rate) 63 /min Invalid Interpretation Code [employer] Phone: [phone] QRS axis, electrocardiogram -33 deg Invalid Interpretation Code [employer] Phone: [phone] QRS duration, electrocardiogram 101 ms Invalid Interpretation Code [employer] Phone: [phone] QT interval, electrocardiogram new path ms Invalid Interpretation Code [employer] Phone: [phone] T wave axis, electrocardiogram 30 deg Invalid Interpretation Code [employer] Phone: [phone] Clinical 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 Alanine aminotransferase (ALT) 27 U/L Invalid Interpretation Code [employer] Work [phone] Albumin 3.3 g/dL Low [employer] Work Phone: [phone] Alkaline phosphatase (ALP) 83 U/L Invalid Interpretation Code [employer] Work [phone] ALP enzyme act/vol (Bld) 83 U/L [employer] Work [phone] Anion gap 7 mmol/L Invalid Interpretation Code [employer] Work [phone] Anion gap molar conc 7 mmol/L [employer] Work [phone] Aspartate aminotransferase (AST) 19 U/L Invalid Interpretation Code [employer] Work Phone: [phone] Bilirubin (total) 0.60 mg/dL Invalid Interpretation Code [employer] Work Phone: [phone] BUN/Creatinine Ratio 8.9 mg/mg Low [employer] Work Phone: [phone] Calcium 8.4 mg/dL Invalid Interpretation Code [employer] Work Phone: [phone] Chloride 108 mmol/L High [employer] Work Phone: [phone] Cholesterol 143 mg/dL Invalid Interpretation Code [employer] Work Phone: [phone] CO2 24 mmol/L Invalid Interpretation Code [employer] Work Phone: [phone] CO2 ppres (BldV) 24 mmol/L [employer] Work Phone: [phone] Creatinine 0.9 mg/dL Invalid Interpretation Code [employer] Work Phone: [phone] Erythrocytes (RBC) 5.00 10*6/uL Invalid Interpretation Code [employer] Work Phone: [phone] Glucose 120 mg/dL High [employer] Work Phone: [phone] Glucose mass conc 120 mg/dL High [employer] Work Phone: [phone] HDL Cholesterol 25 mg/dL Low [employer] Work [phone] Hematocrit (HCT) 42.2 % Invalid Interpretation Code [facility] Work Phone: [phone] Hematocrit Volume Fraction (Bld) 42.2 % [facility] Work Phone: [phone] Hemoglobin (HGB) 14.4 g/dL Invalid Interpretation Code [facility] Work Phone: [phone] LDL Cholesterol 86 mg/dL Invalid Interpretation Code [facility] Work Phone: [phone] Magnesium 2.0 mg/dL Invalid Interpretation Code [facility] Work Phone: [phone] Platelets 144 10*3/mm3 Low [facility] Work Phone: [phone] Platelets #/vol (Bld) 144 10*3/mm3 Low [employer] Work Phone: [phone] Potassium 3.4 mmol/L Low [facility] Work Phone: [phone] Protein 6.5 g/dL Invalid Interpretation Code [employer] Work Phone: [phone] RBC #/vol (Bld) 5.00 10*6/uL [facility] Work Phone: [phone] Sodium 139 mmol/L Invalid Interpretation Code [facility] Work Phone: [phone] Triglyceride 159 mg/dL Invalid Interpretation Code [facility] Work Phone: [phone] Urea nitrogen 8 mg/dL Invalid Interpretation Code [facility] Work Phone: [phone] WBC #/vol (Bld) 7.8 10*3/uL [facility] Work Phone: [phone] WBC (Leukocytes) 7.8 10*3/uL Invalid Interpretation Code [facility] Work Phone: [phone] Clinical Lists 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: 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-30-2014 BNP 297.7 pg/mL Invalid Interpretation Code [facility] Work Phone: [phone] Thyroid stimulating hormone (TSH) 2.74 u[iU]/mL Invalid Interpretation Code [facility] Work Phone: [phone] External Other: [employer]od of Contacton 04-16-2014 methcontact secmsg Invalid Interpretation Code [facility] Group Work Phone: [phone] Patient's prefered method of contact secmsg Invalid Interpretation Code [facility] Work Phone: [phone] Office Visit: [facility] 04-16-19 15 cardiac risk group B Invalid Interpretation Code [facility] Work Phone: [phone] Lab Report: Ordered by Dr. Da watkins 07-21-2013 Cholesterol to HDL Ratio 4.6 {ratio} Invalid Interpretation Code [facility] Work Phone: [phone] Lab Report: LIPIDon 11-12-19 13 very low density lipoproteins 42 mg/dL High 5-40 [facility] Work Phone: [phone] Lab Report: LIVERon 11-12-19 13 Bilirubin (direct) 0.13 mg/dL Normal 0.00-0.[address] [facility] Work Phone: [phone] Clinical Lists Update: Prelo dispatch officer 04-26-2010 eGFR (non-black) mL/min/{1.73_m2} Invalid Interpretation Code [facility] Work Phone: [phone] Globulin 3.0 g/dL Invalid Interpretation Code [facility] Work Phone: [phone] Globulin mass conc (S) 3.0 g/dL [facility] Work Phone: [phone] Office Visiton 08-19-2001 Colonoscopy (procedure) Unknown Invalid Interpretation Code [facility] Work Phone: [phone] Protein mass conc Unknown [facility] Work Phone: [phone] Culture, urine Bacteria identified Cx Nom (U) Positive [facility] Work Phone: Vital Signs Date Time Vital Sign Value Performing Clinician Faci lity 10-23-2024 08:14-0400 Body height 160.[address] Bria Spencer MD Work Phone: [facility] 10-23-2024 08:14-0400 Body mass index (BMI) [Ratio] 33.6 kg/m2 Dr. Bria Spencer MD Work Phone: [facility] 10-23-2024 08:14-0400 Body temperature 98 [degF] Dr. Bria Spencer MD Work Phone: [facility] 10-23-2024 08:14-0400 Body weight 86.[address] Bria Spencer MD Work Phone: [facility] 10-23-2024 08:14-0400 Diastolic blood pressure 90 mm[Hg] Dr. Bria Spencer MD Work Phone: [facility] 10-23-2024 08:14-0400 Heart rate 80 /min Dr. Bria Spencer MD Work Phone: [facility] 10-23-2024 08:14-0400 Respiratory rate 16 /min Dr. Bria Spencer MD Work Phone: [facility] 10-23-2024 08:14-0400 SaO2% (BldA) [Mass fraction] 97 % Dr. Bria Spencer MD Work Phone: [facility] 10-23-2024 08:14-0400 Systolic blood pressure 133 mm[Hg] Dr. Bria Spencer MD Work Phone: [facility] 09-30-2024 10:08-0400 Body height 160.[address] Bria Spencer MD Work Phone: [facility] 09-30-2024 10:08-0400 Body mass index (BMI) [Ratio] 33.3 kg/m2 Dr. Bria Spencer MD Work Phone: [facility] 09-30-2024 10:08-0400 Body weight 85.[address] Bria Spencer MD Work Phone: [facility] 09-30-2024 10:08-0400 Diastolic blood pressure 79 mm[Hg] Dr. Bria Spencer MD Work Phone: [facility] 09-30-2024 10:08-0400 Heart rate 78 /min Dr. Bria Spencer MD Work Phone: [facility] 09-30-2024 10:08-0400 Respiratory rate 16 /min Dr. Bria Spencer MD Work Phone: [facility] 09-30-2024 10:08-0400 Systolic blood pressure 133 mm[Hg] Dr. Bria Spencer MD Work Phone: [facility] 07-17-2024 09:39-0400 Body height 160.[address] Bria Spencer MD Work Phone: [facility] 07-17-2024 09:39-0400 Body mass index (BMI) [Ratio] 34.8 kg/m2 Dr. Bria Spencer MD Work Phone: [facility] 07-17-2024 09:39-0400 Body weight 89.[address] Bria Spencer MD Work Phone: [facility] 07-17-2024 09:39-0400 Diastolic blood pressure 76 mm[Hg] Dr. Bria Spencer MD Work Phone: [facility] 07-17-2024 09:39-0400 Heart rate 66 /min Dr. Bria Spencer MD Work Phone: [facility] 07-17-2024 09:39-0400 Respiratory rate 16 /min Dr. Bria Spencer MD Work Phone: [facility] 07-17-2024 09:39-0400 SaO2% (BldA) [Mass fraction] 97 % Dr. Bria Spencer MD Work Phone: [facility] 07-17-2024 09:39-0400 Systolic blood pressure 116 mm[Hg] Dr. Bria Spencer MD Work Phone: [facility] 05-15-2024 10:36-0400 Body height 160.[address] Bria Spencer MD Work Phone: [facility] 05-15-2024 10:36-0400 Body mass index (BMI) [Ratio] 34.6 kg/m2 Dr. Bria Spencer MD Work Phone: [facility] 05-15-2024 10:36-0400 Body weight 88.[address] Bria Spencer MD Work Phone: [facility] 05-15-2024 10:36-0400 Diastolic blood pressure 72 mm[Hg] Dr. Bria Spencer MD Work Phone: [facility] 05-15-2024 10:36-0400 Heart rate 61 /min Dr. Bria Spencer MD Work Phone: [facility] 05-15-2024 10:36-0400 Respiratory rate 16 /min Dr. Bria Spencer MD Work Phone: [facility] 05-15-2024 10:36-0400 SaO2% (BldA) [Mass fraction] 95 % Dr. Bria Spencer MD Work Phone: [facility] 05-15-2024 10:36-0400 Systolic blood pressure 110 mm[Hg] Dr. Bria Spencer MD Work Phone: [facility] 09-05-2023 14:29-0400 Body height 160 cm Ita Garcia MD Work Phone: [facility] 09-05-2023 14:29-0400 Body mass index (BMI) [Ratio] 36.6 kg/m2 Ita Garcia MD Work Phone: [facility] 09-05-2023 14:29-0400 Body weight 93.71 kg Ita Garcia MD Work Phone: [facility] 09-05-2023 14:29-0400 Diastolic blood pressure 82 mm[Hg] Ita Garcia MD Work Phone: [facility] 09-05-2023 14:29-0400 Heart rate 60 /min Ita Garcia MD Work Phone: [facility] 09-05-2023 14:29-0400 Systolic blood pressure 129 mm[Hg] Ita Garcia MD Work Phone: [facility] 06-22-2023 08:20-0400 Diastolic blood pressure 71 mm[Hg] Dr. Bria Spencer Work Phone: [facility] 06-22-2023 08:20-0400 Systolic blood pressure 122 mm[Hg] Dr. Bria Spencer Work Phone: [facility] 06-22-2023 08:18-0400 Body temperature 96.9 [degF] Dr. Bria Spencer Work Phone: [facility] 06-22-2023 08:18-0400 Heart rate 62 /min Dr. Bria Spencer Work Phone: [facility] 06-22-2023 08:18-0400 Respiratory rate 16 /min Dr. Bria Spencer Work Phone: [facility] 06-22-2023 08:18-0400 SaO2% (BldA) [Mass fraction] 100 % Dr. Bria Spencer Work Phone: [facility] 06-12-2023 08:09-0400 Body temperature 98 [degF] Dr. Bria Spencer Work Phone: [facility] 06-12-2023 08:09-0400 Diastolic blood pressure 66 mm[Hg] Dr. Bria Spencer Work Phone: [facility] 06-12-2023 08:09-0400 Heart rate 80 /min Dr. Bria Spencer Work Phone: [facility] 06-12-2023 08:09-0400 Respiratory rate 16 /min Dr. Bria Spencer Work Phone: [facility] 06-12-2023 08:09-0400 SaO2% (BldA) [Mass fraction] 97 % Dr. Bria Spencer Work Phone: [facility] 06-12-2023 08:09-0400 Systolic blood pressure 110 mm[Hg] Dr. Bria Spencer Work Phone: [facility] 06-12-2023 06:53-0400 Body height 162.[address] Bria Spencer Work Phone: [facility] 06-12-2023 06:53-0400 Body mass index (BMI) [Ratio] 33.6 kg/m2 Dr. Bria Spencer Work Phone: [facility] 06-12-2023 06:53-0400 Body weight 88.[address] Bria Spencer Work Phone: [facility] 05-21-2023 08:30-0400 Body mass index (BMI) [Ratio] 34.7 kg/m2 Dr. Bria Spencer Work Phone: [facility] 05-21-2023 08:30-0400 Body weight 91.[address] Bria Spencer Work Phone: [facility] 05-21-2023 08:30-0400 Diastolic blood pressure 68 mm[Hg] Dr. Bria Spencer Work Phone: [facility] 05-21-2023 08:30-0400 Respiratory rate 16 /min Dr. Bria Spencer Work Phone: [facility] 05-21-2023 08:30-0400 Systolic blood pressure 98 mm[Hg] Dr. Bria Spencer Work Phone: [facility] 04-04-2023 21:29-0500 Body temperature 98 [degF] Dr. Bria Spencer Work Phone: [facility] 04-04-2023 21:29-0500 Diastolic blood pressure 93 mm[Hg] Dr. Bria Spencer Work Phone: [facility] 04-04-2023 21:29-0500 Heart rate 90 /min Dr. Bria Spencer Work Phone: [facility] 04-04-2023 21:29-0500 Respiratory rate 18 /min Dr. Bria Spencer Work Phone: [facility] 04-04-2023 21:29-0500 SaO2% (BldA) [Mass fraction] 97 % Dr. Bria Spencer Work Phone: [facility] 04-04-2023 21:29-0500 Systolic blood pressure 127 mm[Hg] Dr. Bria Spencer Work Phone: [facility] 04-04-2023 16:38-0500 Body height 162.[address] Bria Spencer Work Phone: [facility] 03-08-2023 14:17-0500 Body temperature 98.1 [degF] Dr. Bria Spencer Work Phone: [facility] 03-08-2023 14:17-0500 Diastolic blood pressure 74 mm[Hg] Dr. Bria Spencer Work Phone: [facility] 03-08-2023 14:17-0500 Heart rate 55 /min Dr. Bria Spencer Work Phone: [facility] 03-08-2023 14:17-0500 Respiratory rate 18 /min Dr. Bria Spencer Work Phone: [facility] 03-08-2023 14:17-0500 SaO2% (BldA) [Mass fraction] 97 % Dr. Bria Spencer Work Phone: [facility] 03-08-2023 14:17-0500 Systolic blood pressure 114 mm[Hg] Dr. Bria Spencer Work Phone: [facility] 03-08-2023 06:31-0500 Body height 162.[address] Bria Spencer Work Phone: [facility] 03-08-2023 06:31-0500 Body mass index (BMI) [Ratio] 36.5 kg/m2 Dr. Bria Spencer Work Phone: [facility] 03-08-2023 06:31-0500 Body weight 96.[address] Bria Spencer Work Phone: [facility] 02-27-2023 08:06-0500 Body mass index (BMI) [Ratio] 36.6 kg/m2 Dr. Bria Spencer Work Phone: [facility] 02-27-2023 08:06-0500 Body temperature 97.2 [degF] Dr. Bria Spencer Work Phone: [facility] 02-27-2023 08:06-0500 Body weight 96.[address] Bria Spencer Work Phone: [facility] 02-27-2023 08:06-0500 Diastolic blood pressure 73 mm[Hg] Dr. Bria Spencer Work Phone: [facility] 02-27-2023 08:06-0500 Heart rate 60 /min Dr. Bria Spencer Work Phone: [facility] 02-27-2023 08:06-0500 Respiratory rate 17 /min Dr. Bria Spencer Work Phone: [facility] 02-27-2023 08:06-0500 SaO2% (BldA) [Mass fraction] 96 % Dr. Bria Spencer Work Phone: [facility] 02-27-2023 08:06-0500 Systolic blood pressure 110 mm[Hg] Dr. Bria Spencer Work Phone: [facility] 12-20-2022 14:56-0400 Body height 162.[address] Bria Spencer Work Phone: [facility] 12-20-2022 14:56-0400 Body mass index (BMI) [Ratio] 37.4 kg/m2 Dr. Bria Spencer Work Phone: [facility] 12-20-2022 14:56-0400 Body weight 98.[address] Bria Spencer Work Phone: [facility] 12-20-2022 14:56-0400 Diastolic blood pressure 70 mm[Hg] Dr. Bria Spencer Work Phone: [facility] 12-20-2022 14:56-0400 Heart rate 67 /min Dr. Bria Spencer Work Phone: [facility] 12-20-2022 14:56-0400 Respiratory rate 17 /min Dr. Bria Spencer Work Phone: [facility] 12-20-2022 14:56-0400 SaO2% (BldA) [Mass fraction] 97 % Dr. Bria Spencer Work Phone: [facility] 12-20-2022 14:56-0400 Systolic blood pressure 117 mm[Hg] Dr. Brai Spencer Work Phone: [facility] 12-11-2022 09:04-0400 Body height 160.[address] Rui Rea [facility] 12-11-2022 09:04-0400 Body weight 100.[address] Rui Rea [facility] 08-24-2022 10:38-0400 Body weight 100.[address] Rui Rea Work Phone: [facility] 08-24-2022 10:38-0400 Diastolic blood pressure 83 mm[Hg] Dr. Rui Rea Work Phone: [facility] 08-24-2022 10:38-0400 Heart rate 61 /min Dr. Rui Rea Work Phone: [facility] 08-24-2022 10:38-0400 Respiratory rate 20 /min Dr. Rui Rea Work Phone: [facility] 08-24-2022 10:38-0400 Systolic blood pressure 128 mm[Hg] Dr. Rui Rea Work Phone: [facility] 08-24-2022 08:41-0400 Body height 160.[address] Rui Rea Work Phone: [facility] 07-12-2022 08:27-0400 Body height 160.[address] Reynaldo Thapa Work Phone: [facility] 07-12-2022 08:19-0400 Body mass index (BMI) [Ratio] 39.4 kg/m2 Dr. Reynaldo Thapa Work Phone: [facility] 07-12-2022 08:19-0400 Body weight 101.[address] Reynaldo Thapa Work Phone: [facility] 07-12-2022 08:19-0400 Diastolic blood pressure 72 mm[Hg] Dr. Reynaldo Thapa Work Phone: [facility] 07-12-2022 08:19-0400 Systolic blood pressure 120 mm[Hg] Dr. Reynaldo Thapa Work Phone: [facility] 06-29-2022 11:00-0400 Body temperature 97.2 [degF] Dr. Reynaldo Thapa Work Phone: [facility] 06-29-2022 11:00-0400 Diastolic blood pressure 75 mm[Hg] Dr. Reynaldo Thapa Work Phone: [facility] 06-29-2022 11:00-0400 Heart rate 60 /min Dr. Reynaldo Thapa Work Phone: [facility] 06-29-2022 11:00-0400 Respiratory rate 16 /min Dr. Reynaldo Thapa Work Phone: [facility] 06-29-2022 11:00-0400 SaO2% (BldA) [Mass fraction] 96 % Dr. Reynaldo Thapa Work Phone: [facility] 06-29-2022 11:00-0400 Systolic blood pressure 145 mm[Hg] Dr. Reynaldo Thapa Work Phone: [facility] 06-29-2022 10:30-0400 Inhaled oxygen flow rate 2 L/min Dr. Reynaldo Thapa Work Phone: [facility] 06-29-2022 08:03-0400 Body height 160.[address] Reynaldo Thapa Work Phone: [facility] 06-29-2022 08:03-0400 Body mass index (BMI) [Ratio] 39.5 kg/m2 Dr. Reynaldo Thapa Work Phone: [facility] 06-29-2022 08:03-0400 Body weight 101.[address] Reynaldo Thapa Work Phone: [facility] 06-08-2022 12:12-0400 Body temperature 97.7 [degF] Dr. Reynaldo Thapa Work Phone: [facility] 06-08-2022 12:12-0400 Diastolic blood pressure 57 mm[Hg] Dr. Reynaldo Thapa Work Phone: [facility] 06-08-2022 12:12-0400 Heart rate 72 /min Dr. Reynaldo Thapa Work Phone: [facility] 06-08-2022 12:12-0400 Respiratory rate 18 /min Dr. Reynaldo Thapa Work Phone: [facility] 06-08-2022 12:12-0400 SaO2% (BldA) [Mass fraction] 94 % Dr. Reynaldo Thapa Work Phone: [facility] 06-08-2022 12:12-0400 Systolic blood pressure 116 mm[Hg] Dr. Reynaldo Thapa Work Phone: [facility] 06-08-2022 07:50-0400 Body height 160.[address] Reynaldo Thapa Work Phone: [facility] 06-08-2022 07:50-0400 Body mass index (BMI) [Ratio] 39.4 kg/m2 Dr. Reynaldo Thapa Work Phone: [facility] 06-08-2022 07:50-0400 Body weight [address] Reynaldo Thapa Work Phone: [facility] 02-02-2022 08:33-0500 Body height 162.[address] Rui Rea Work Phone: [facility] 02-02-2022 08:33-0500 Body mass index (BMI) [Ratio] 37.5 kg/m2 Dr. Rui Rea Work Phone: [facility] 02-02-2022 08:33-0500 Body weight 99.[address] Rui Rea Work Phone: [facility] 02-02-2022 08:33-0500 Diastolic blood pressure 81 mm[Hg] Dr. Rui Rea Work Phone: [facility] 02-02-2022 08:33-0500 Heart rate 69 /min Dr. Rui Rea Work Phone: [facility] 02-02-2022 08:33-0500 Respiratory rate 20 /min Dr. Rui Rea Work Phone: [facility] 02-02-2022 08:33-0500 SaO2% (BldA) [Mass fraction] 97 % Dr. Rui Rea Work Phone: [facility] 02-02-2022 08:33-0500 Systolic blood pressure 117 mm[Hg] Dr. Rui Rea Work Phone: [facility] 08-19-2022 11:32-0400 Diastolic blood pressure 75 mm[Hg] Dr. Rui Rea Work Phone: [facility] Work Phone: 10-07-2021 11:32-0400 Heart rate 60 /min Dr. Rui Rea Work Phone: [facility] Work Phone: 10-07-2021 11:32-0400 Respiratory rate 18 /min Dr. Rui Rea Work Phone: [facility] Work Phone: 10-07-2021 11:32-0400 SaO2% (BldA) [Mass fraction] 97 % Dr. Rui Rea Work Phone: [facility] Work Phone: 10-07-2021 11:32-0400 Systolic blood pressure 141 mm[Hg] Dr. Rui Rea Work Phone: [facility] Work Phone: 10-07-2021 09:53-0400 Body height 162.[address] Rui Rea Work Phone: [facility] Work Phone: 10-07-2021 09:53-0400 Body mass index (BMI) [Ratio] 38.5 kg/m2 Dr. Rui Rea Work Phone: [facility] Work Phone: 10-07-2021 09:53-0400 Body temperature 98.2 [degF] Dr. Rui Rea Work Phone: [facility] Work Phone: 10-07-2021 09:53-0400 Body weight 102.[address] Rui Rea Work Phone: [facility] Work Phone: 08-09-2021 13:36-0400 Body mass index (BMI) [Ratio] 37.2 kg/m2 Dr. Rui Rea Work Phone: [facility] Work Phone: 08-09-2021 13:36-0400 Body weight 98.[address] Rui Rea Work Phone: [facility] Work Phone: 08-09-2021 13:36-0400 Diastolic blood pressure 76 mm[Hg] Dr. Rui Rea Work Phone: [facility] Work Phone: 08-09-2021 13:36-0400 Heart rate 60 /min Dr. Rui Rea Work Phone: [facility] Work Phone: 08-09-2021 13:36-0400 Respiratory rate 18 /min Dr. Rui Rea Work Phone: [facility] Work Phone: 08-09-2021 13:36-0400 Systolic blood pressure 146 mm[Hg] Dr. Rui Rea Work Phone: [facility] Work Phone: 07-16-2021 00:37-0400 Diastolic blood pressure 114 mm[Hg] Dr. Rui Rea Work Phone: [facility] Work Phone: 07-16-2021 00:37-0400 Heart rate 157 /min Dr. Rui Rea Work Phone: [facility] Work Phone: 07-16-2021 00:37-0400 Systolic blood pressure 135 mm[Hg] Dr. Rui Rea Work Phone: [facility] Work Phone: 07-15-2021 22:36-0400 Body temperature 96.8 [degF] Dr. Rui Rea Work Phone: [facility] Work Phone: 07-15-2021 22:36-0400 Respiratory rate 17 /min Dr. Rui Rea Work Phone: [facility] Work Phone: 07-15-2021 22:36-0400 SaO2% (BldA) [Mass fraction] 95 % Dr. Rui Rea Work Phone: [facility] Work Phone: 07-15-2021 22:34-0400 Body height 162.[address] Rui Rea Work Phone: [facility] Work Phone: 07-15-2021 22:34-0400 Body mass index (BMI) [Ratio] 38.7 kg/m2 Dr. Rui Rea Work Phone: [facility] Work Phone: 07-15-2021 22:34-0400 Body weight 102.[address] Rui Rea Work Phone: [facility] Work Phone: 07-15-2021 15:52-0400 Body temperature 98.3 [degF] Dr. Rui Rea Work Phone: [facility] Work Phone: 07-15-2021 15:52-0400 Diastolic blood pressure 70 mm[Hg] Dr. Rui Rea Work Phone: [facility] Work Phone: 07-15-2021 15:52-0400 Heart rate 89 /min Dr. Rui Rea Work Phone: [facility] Work Phone: 07-15-2021 15:52-0400 Respiratory rate 17 /min Dr. Rui Rea Work Phone: [facility] Work Phone: 07-15-2021 15:52-0400 SaO2% (BldA) [Mass fraction] 94 % Dr. Rui Rea Work Phone: [facility] Work Phone: 07-15-2021 15:52-0400 Systolic blood pressure 120 mm[Hg] Dr. Rui Rea Work Phone: [facility] Work Phone: 07-15-2021 15:52-0400 Body temperature 98.3 [degF] Dr. Rui Rea Work Phone: [facility] Work Phone: 07-15-2021 15:52-0400 Diastolic blood pressure 70 mm[Hg] Dr. Rui Rea Work Phone: [facility] Work Phone: 07-15-2021 15:52-0400 Heart rate 89 /min Dr. Rui Rea Work Phone: [facility] Work Phone: 07-15-2021 15:52-0400 Respiratory rate 17 /min Dr. Rui Rea Work Phone: [facility] Work Phone: 07-15-2021 15:52-0400 SaO2% (BldA) [Mass fraction] 94 % Dr. Rui Rea Work Phone: [facility] Work Phone: 07-15-2021 15:52-0400 Systolic blood pressure 120 mm[Hg] Dr. Rui Rea Work Phone: [facility] Work Phone: 07-05-2021 08:32-0400 Body mass index (BMI) [Ratio] 37.4 kg/m2 Dr. Rui Rea Work Phone: [facility] Work Phone: 07-05-2021 08:32-0400 Body weight 98.[address] Rui Rea Work Phone: [facility] Work Phone: 07-05-2021 08:32-0400 Diastolic blood pressure 78 mm[Hg] Dr. Rui Rea Work Phone: [facility] Work Phone: 07-05-2021 08:32-0400 Systolic blood pressure 120 mm[Hg] Dr. Rui Rea Work Phone: [facility] Work Phone: 07-05-2021 08:32-0400 Body height 162.[address] Rui Rea Work Phone: [facility] Work Phone: 07-05-2021 08:32-0400 Body mass index (BMI) [Ratio] 37.4 kg/m2 Dr. Rui Rea Work Phone: [facility] Work Phone: 07-05-2021 08:32-0400 Body weight 98.[address] Rui Rea Work Phone: [facility] Work Phone: 07-05-2021 08:32-0400 Diastolic blood pressure 78 mm[Hg] Dr. Rui Rea Work Phone: [facility] Work Phone: 07-05-2021 08:32-0400 Systolic blood pressure 120 mm[Hg] Dr. Rui Rea Work Phone: [facility] Work Phone: 03-31-2021 09:11-0500 Body weight 97.[address] Rui Rea Work Phone: [facility] Work Phone: 03-31-2021 09:11-0500 Diastolic blood pressure 88 mm[Hg] Dr. Rui Rea Work Phone: [facility] Work Phone: 03-31-2021 09:11-0500 Heart rate 108 /min Dr. Rui Rea Work Phone: [facility] Work Phone: 03-31-2021 09:11-0500 Respiratory rate 16 /min Dr. Rui Rea Work Phone: [facility] Work Phone: 03-31-2021 09:11-0500 SaO2% (BldA) [Mass fraction] 95 % Dr. Rui Rea Work Phone: [facility] Work Phone: 03-31-2021 09:11-0500 Systolic blood pressure 121 mm[Hg] Dr. Rui Rea Work Phone: [facility] Work Phone: 06-22-2020 15:40-0400 Body mass index (BMI) [Ratio] 37.9 kg/m2 Dr. Rui Rea Work Phone: [facility] Work Phone: 12-29-2016 10:52-0500 BMI (Body Mass Index) 35.36 kg/m2 [facility] Work Phone: 12-29-2016 10:52-0500 BP Diastolic 78 mm[Hg] [facility] Work Phone: 12-29-2016 10:52-0500 BP Systolic 120 mm[Hg] [facility] Work Phone: 12-29-2016 10:52-0500 Height 162.56 cm [facility] Work Phone: 12-29-2016 10:52-0500 Pulse (Heart Rate) 60 /min [facility] Work Phone: 12-29-2016 10:52-0500 Respiratory Rate 20 /min [facility] Work Phone: 12-29-2016 10:52-0500 Weight 93.44 kg [facility] Work Phone: 06-30-2016 10:41-0400 Heart rate 57 /min [facility] Work Phone: 06-30-2016 10:28-0400 BMI (Body Mass Index) 37.24 kg/m2 [facility] Work Phone: 06-30-2016 10:28-0400 BP Diastolic 70 mm[Hg] [facility] Work Phone: 06-30-2016 10:28-0400 BP Systolic 122 mm[Hg] [facility] Work Phone: 06-30-2016 10:28-0400 Height 162.56 cm [facility] Work Phone: 06-30-2016 10:28-0400 Pulse (Heart Rate) 58 /min [facility] Work Phone: 06-30-2016 10:28-0400 Pulse Oximetry 98 % [facility] Work Phone: 06-30-2016 10:28-0400 Respiratory Rate 20 /min [facility] Work Phone: 06-30-2016 10:28-0400 Weight 98.43 kg [facility] Work Phone: 12-28-2015 10:47-0500 [...] Date Encounter Type Care Provider Facility Start: 11-24-2024 End: 11-24-[address] Bria Spencer MD Work Phone: -[facility] Start: 11-24-2024 End: 11-24-[address] Reynaldo Thapa MD -[facility] Work Phone: Start: 11-12-2024 End: 11-12-[address] Bria Spencer MD Work Phone: -[facility] Start: 11-12-2024 End: 11-12-[address] Reynaldo Thapa MD -[facility] Work Phone: Start: 11-11-2024 ambulatory Bria Spencer Facility: [facility] Start: 11-11-2024 End: 11-11-[address] Bria Spencer MD Work Phone: -[facility] Start: 11-11-2024 End: 11-11-[address] Reynaldo Thapa MD -[facility] Work Phone: Start: 11-10-2024 End: 11-10-2024 Patient encounter procedure Anu Albright [facility] Work Phone: Start: 11-10-2024 End: 11-10-[address] Bria Spencer MD Work Phone: [facility] Start: 10-23-2024 End: 10-23-2024 Patient encounter procedure Clarisse RAO -[facility] Work Phone: Start: 10-23-2024 End: 10-23-[address] Bria Spencer MD Work Phone: -[facility] Start: 10-09-2024 End: 10-09-[address] B[facility] Spencer [facility] Phone[facility] Start: 10-09-2024 End: 10-09-[address] [facility] Start: 10-09-2024 End: 10-09-2024 ambulatory Bria Mibrianna Facility:[facility] Start: 09-30-2024 End: 09-30-[address] Bria Spencer MD Work Phone: -[facility] Start: 09-30-2024 End: 09-30-[address] Reynaldo Thapa MD -[facility] Work Phone: Start: 09-25-2024 ambulatory Bria Spencer Facility: [facility] [place] Start: 09-17-2024 End: 09-17-[address] Bria Spencer MD Work Phone: -[facility] Start: 09-17-2024 End: 09-17-2024 Patient encounter procedure Anu Albright [facility] Work Phone: Start: 09-12-2024 Non-patient / Non-visit Dr. Stuart Thapa MD -[facility] Work Phone: Start: 09-12-2024 End: 09-12-[address] Bria Spencer MD Work Phone: -[facility] Start: 09-12-2024 End: 09-12-2024 Patient encounter procedure Estuardo FRANKS -[facility] Work Phone: Start: 09-12-2024 End: 09-12-2024 ambulatory Estuardo Garcia Facility:[facility] Start: 08-25-2024 End: 08-25-[address] Bria Spencer MD Work Phone: -[facility] Start: 08-25-2024 End: 08-25-[address] Reynaldo Thapa MD -[facility] Work Phone: Start: 08-19-2024 Non-patient / Non-visit Dr. Anam Mejia MD -[facility] Work Phone: Start: 07-18-2024 End: 07-18-[address] Bria Spencer MD Work Phone: [facility] Work Phone: Start: 07-18-2024 End: 07-18-[address] Bria Spencer MD -Laboratory Work Phone: Start: 07-17-2024 End: 07-17-2024 Patient encounter procedure Clarisse Walden REPORTING COORDINATOR-C -[facility] Work Phone: Start: 07-17-2024 End: 07-18-[address] Bria Spencer MD Work Phone: [facility] Work Phone: Start: 07-17-2024 End: 07-17-2024 ambulatory Clarisse Walden Facility:[facility] Start: 07-07-2024 End: 07-07-[address] Bria Spencer MD Work Phone: [facility] Work Phone: Start: 07-07-2024 End: 07-07-2024 Patient encounter procedure Clarisse RAO -Radiology [facility] Work Phone: Start: 07-07-2024 End: 07-07-2024 ambulatory Clarisse Walden Facility:[facility] Start: 07-01-2024 End: 07-01-[address] Bria Spencer MD Work Phone: [facility] Work Phone: Start: 07-01-2024 End: 07-01-2024 Patient encounter procedure Clarisse RAO -Radiology [facility] Work Phone: Start: 07-01-2024 End: 07-01-2024 ambulatory Bria Spencer Facility:[facility] Start: 05-26-2024 End: 05-26-2024 ambulatory Bria Johanna Facility:[facility] Start: 05-26-2024 End: 05-26-[address] Reynaldo Thapa MD -[facility] Work Phone: Start: 05-15-2024 End: 05-15-2024 Patient encounter procedure Clarisse RAO -[facility] Work Phone: Start: 05-15-2024 End: 05-15-2024 ambulatory Bria Spencer Facility:[facility] Start: 03-07-2024 End: 03-07-[address] Bria Spencer MD -[facility] Work Phone: Start: 03-07-2024 End: 03-07-2024 ambulatory Bria Spencer Facility:[facility] Start: 02-25-2024 End: 02-25-2024 ambulatory Bria Spencer Facility:[facility] Start: 09-05-2023 End: 09-05-2023 Patient encounter procedure Ita Garcia MD Work Phone: [facility] Comment on above: Esophagogastric [...] Start: 09-05-2023 End: 09-05-2023 ambulatory RUI REA Facility[facility] Start: 09-04-2023 Telephone encounter Ita perez MD Work Phone: [facility] Comment on above: Appointment Start: 06-22-2023 End: 06-22-2023 Admission to same day surgery center Dr. Bria Spencer Work Phone: [facility]-Endoscopy Work Phone: Start: 06-22-2023 End: 06-22-[address] Bria Spencer Work Phone: [facility] Work Phone: Start: 06-12-2023 Non-patient / Non-visit Dr. Sebastián Spencer Work Phone: [facility] Start: 06-12-2023 End: 06-12-2023 Admission to same day surgery center Dr. Bria Spencer Work Phone: [facility]-Endoscopy Work Phone: Start: 06-12-2023 End: 06-12-[address] Bria Spencer Work Phone: [facility] Work Phone: Start: 05-28-2023 End: 05-28-[address] Bria Specner Work Phone: [facility] Work Phone: Start: 05-21-2023 End: 05-21-[address] Bria Spencer Work Phone: [facility] Work Phone: Start: 04-04-2023 End: 04-04-2023 Emergency department patient visit Dr. Bria Spencer Work Phone: [facility]-Emergency Department Work Phone: Start: 03-15-2023 End: 03-15-[address] Bria Spencer Work Phone: [facility] Work Phone: Start: 03-15-2023 End: 03-15-[address] Bria Spencer Work Phone: [facility] Work Phone: Start: 03-08-2023 Non-patient / Non-visit Dr. Sebastián Spencer Work Phone: [facility] Start: 03-08-2023 End: 03-08-2023 Non-patient / Non-visit Dr. Bria Spencer Work Phone: [facility] Work Phone: Start: 03-08-2023 End: 03-08-2023 Admission to same day surgery center Dr. Bria Spencer Work Phone: [facility]-Surgical Day [facility] Start: 03-08-2023 End: 03-08-[address] Bria Spencer Work Phone: [facility] Work Phone: Start: 02-27-2023 End: 02-27-[address] Bria Spencer Work Phone: [facility] Work Phone: Start: 02-26-2023 End: 02-26-[address] Bria Spencer Work Phone: [facility] Work Phone: Start: 02-20-2023 End: 02-20-[address] Bria Spencer Work Phone: [facility] Work Phone: Start: 02-20-2023 End: 02-20-[address] Bria Spencer Work Phone: [facility] Start: 12-20-2022 End: 12-20-[address] Bria Spencer Work Phone: [facility] Work Phone: Start: 12-14-2022 End: 12-14-[address] Rui Rea [facility] Work Phone: Start: 12-14-2022 End: 12-14-[address] [facility]ui [facility] Start: 12-11-2022 End: 12-19-[address] Rui Rea [facility] Work Phone: Start: 12-11-2022 End: 12-19-[address] Rui Rea [facility]-Nutritional Services Work Phone: Start: 12-11-[address] Rui He [facility]Nut[facility] Work Phone: Start: 11-24-2022 End: 11-24-[address] Rui Rea [facility]-Ultrasound, [facility] Work Phone: Start: 11-22-2022 End: 11-22-[address] Bria Spencer Work Phone: [facility] Work Phone: Start: 11-08-2022 End: 11-08-[address] Rui Rea [facility] Start: 09-15-2022 End: 09-15-[address] Rui Rea Work Phone: [facility] Work Phone: Start: 09-15-2022 End: 09-15-[address] Rui Rea Work Phone: [facility] Start: 08-24-2022 End: 08-24-[address] Rui Rea Work Phone: [facility] Work Phone: Start: 08-18-2022 End: 08-18-[address] Reynaldo Thapa Work Phone: [facility] Work Phone: Start: 08-18-2022 End: 08-18-[address] Reynaldo Thapa Work Phone: [facility] Work Phone: Start: 08-16-2022 End: 08-16-[address] Reynaldo Thapa Work Phone: [facility] Work Phone: Start: 07-13-2022 End: 07-13-[address] Reynaldo Thapa Work Phone: [facility] Work Phone: Start: 07-13-2022 End: 07-13-[address] Reynaldo Thapa Work Phone: [facility]-Outpatient Breast Imaging Start: 07-12-2022 End: 07-12-[address] Reynaldo Thapa Work Phone: [facility] Start: 06-29-2022 End: 06-29-2022 Admission to same day surgery center Dr. Reynaldo Thapa Work Phone: [facility]-Surgical Day Care Start: 06-29-2022 End: 06-29-[address] Reynaldo Thapa Work Phone: [facility] Work Phone: Start: 06-09-2022 End: 06-09-[address] Reynaldo Thapa Work Phone: [facility] Work Phone: Start: 06-09-2022 End: 06-09-[address] Reynaldo Thapa Work Phone: [facility] Start: 06-08-2022 End: 06-08-2022 Admission to same day surgery center Dr. Reynaldo Thapa Work Phone: [facility]-S[facility] Start: 06-08-2022 End: 06-08-[address] Reynaldo Thapa Work Phone: [facility] Work Phone: Start: 05-05-2022 End: 05-05-[address] Rui Rea Work Phone: [facility] Start: 05-03-2022 End: 05-03-[address] Rui Rea Work Phone: [facility] Work Phone: Start: 05-03-2022 End: 05-03-[address] Rui Rea Work Phone: [facility], [facility] Start: 03-06-2022 End: 03-06-[address] Rui Rea Work Phone: [facility] Work Phone: Start: 03-06-2022 End: 03-06-[address] Rui Rea Work Phone: [facility]-Cat Scan, [facility] Start: 02-24-2022 End: 02-24-[address] Rui Rea Work Phone: [facility] Work Phone: Start: 02-24-2022 End: 02-24-[address] Rui Rea Work Phone: [facility]-Ultrasound, [facility] Start: 02-21-2022 End: 02-21-[address] Rui Rea Work Phone: [facility] Work Phone: Start: 02-21-2022 End: 02-21-[address] Rui Rea Work Phone: [facility]-Laboratory, [place] Start: 02-02-2022 End: 02-02-[address] Rui Rea Work Phone: [facility] Start: 01-20-2022 End: 01-20-[address] Rui Rea Work Phone: [facility] Work Phone: Start: 01-20-2022 End: 01-20-[address] Rui Rea Work Phone: [facility]-Laboratory, Specimen Start: 01-17-2022 End: 01-17-[address] Rui Rea Work Phone: [facility] Work Phone: Start: 01-17-2022 End: 01-17-[address] Rui Rea Work Phone: [facility]-Radiology, [facility] Start: 12-28-2021 End: 12-28-[address] uRi Rea Work Phone: [facility] Start: 12-20-2021 End: 12-20-[address] Rui Rea Work Phone: [facility] Rad[facility] Start: 11-09-2021 End: 11-09-[address] Rui Rea Work Phone: [facility] Work Phone: Start: 11-09-2021 End: 11-09-[address] Rui Rea Work Phone: [facility]-Outpatient Bone Densitometry Start: 10-07-2021 End: 10-07-2021 Emergency department patient visit Dr. Rui Rea Work Phone: [facility]-Emergency Department Start: 09-14-2021 End: 09-14-[address] Rui Rea Work Phone: [facility] Start: 08-09-2021 End: 08-09-[address] Rui Rea Work Phone: [facility] Start: 07-15-2021 End: 07-16-2021 Emergency department patient visit Dr. Rui Rea Work Phone: [facility]-Emergency Department Start: 07-15-2021 End: 07-15-[address] Rui Rea Work Phone: [facility] Start: 07-12-2021 End: 07-12-[address] Rui Rea Work Phone: [facility]-Ultrasound, [facility] Start: 07-06-2021 End: 07-06-[address] Rui Rea Work Phone: [facility]-Outpatient Breast Imaging Start: 07-05-2021 End: 07-05-[address] Rui Rea Work Phone: [facility] Start: 06-08-2021 End: 06-08-[address] Rui Rea Work Phone: [facility] Start: 03-31-2021 End: 03-31-[address] Rui Rea Work Phone: [facility] Procedures Date Procedure Procedure Detail Performing Clinician Start: 10-09-[address] Bria Spencer MD Work Phone: Start: 10-09-[address] Bert Spencer MD Work Phone: Start: 10-09-2024 Vitamin D, 25-hydroxy measurement Dr. Sebastián Spencer MD Work Phone: Comment on above: Vitamin D StatusDeficiency: <20 ng/mL (5 0nmol/L)Insufficiency: 20-30 ng/mL (50-75 nmol/L)Sufficiency: 30-100 ng/mL (75-250 nmol/L)Toxicity: >100 ng/mL (>250 nmol/L) Start: 07-18-[address] Bria Spencer MD Work Phone: Start: 07-18-[address] Bert Spencer MD Work Phone: Start: 07-18-[address] Bria Spencer MD Work Phone: Comment on above: Test Ordered: [id number] 25-Hydroxyvitamin D LCMS D2+P920-[id number], Vitamin D 35 ng/mL ES Reference Range: .Reference Range:All Ages: Target levels 30 - 84730-[id number], Vitamin D-2 <1.0 ng/mL ES Reference Range: .This test was developed and its performance characteristicsdetermined by [employer]. It has not been cleared or approvedby the Food and Drug Administration.25-Hydroxy, Vitamin D-3 35 ng/mL ES Reference Range: .This test was developed and its performance characteristicsdetermined by [employer]. It has not been cleared or approvedby the Food and Drug Administration.Performed at: [facility] [address] [place] [id number] Director: Justus Hodges MD, Phone: [phone] at: [facility], [place] [id number] Director: Onur Marcum PhD, Phone: [phone] Start: 07-07-2024 X-ray of esophagus with double [...] Rea Work Phone: Start: 12-29-2016 End: 12-29-2016 ARCHITECTURAL TECHNICIAN Jazmin Cheng PA-C Work Phone: Start: 12-29-2016 End: 12-29-2016 Follow Up Appt 6 months Jazmin Cheng PA-C Work Phone: Start: 06-30-2016 End: 12-19-2016 Ecg routine ecg w/least 12 lds w/i&r Reynaldo Thapa MD Start: 06-30-2016 End: 12-19-2016 Follow Up Appt 6 months Nacni Rios Start: 06-30-2016 End: 12-19-2016 RODOLFO Thapa [...] 09-20-2015 End: 09-24-2015 Contrast x-ray, esophagus Win John MD Work [...] months Nanci Rios Start: 11-19-2014 End: 11-19-2014 MMNanci Thapa MD Start: 08-05-2014 End: 08-05-2014 ARCHITECTURAL TECHNICIAN Reynaldo Thapa MD Start: 08-05-2014 End: 08-06-2014 [...] months Nanci Rios Start: 04-16-2014 End: 04-16-2014 ARCHITECTURAL TECHNICIAN Jazmin Cheng PA-C Work Phone: Start: 04-16-2014 End: 04-17-2014 Documentation of current medications Jazmin Cheng PA-C Work Phone: Start: 04-16-2014 End: 04-16-2014 Ecg routine ecg w/least 12 lds w/i&r Jazmin Cheng PA-C Work Phone: Start: 04-16-2014 End: 04-16-2014 Follow Up Appt 1 year Jazmin Cheng PA-C Work Phone: Start: 04-16-2014 End: 04-16-2014 ARCHITECTURAL TECHNICIAN Jazmin Cheng PA-C Work Phone: Start: 04-16-2014 [...] Reynaldo Thapa MD Start: 04-17-2013 End: 04-17-2013 MM Reynaldo Thapa MD Start: 04-17-2013 End: 04-17-2013 Follow Up Appt 1 year Reynaldo Thapa MD Start: 04-17-2013 End: 04-17-2013 MMNanci Thapa MD Start: 10-16-2012 End: 11-17-2012 *Hepatic Function Panel Jazmin Cheng PA-C Work Phone: Start: 10-16-2012 End: 10-16-2012 ARCHITECTURAL TECHNICIAN Jazmin Cheng PA-C Work Phone: Start: 10-16-2012 End: 10-16-2012 Follow Up Appt 6 months Jazmin Cheng PA-C Work Phone: Start: 10-16-2012 End: 11-19-2012 Lipid 1996 panel - Serum or Plasma Yamilet Cheng PA-C Work Phone: Start: 10-16-2012 End: 11-17-2012 *Hepatic Function Panel Jazmin Cheng PA-C Work Phone: Start: 10-16-2012 End: 10-16-2012 ARCHITECTURAL TECHNICIAN Jazmin Cheng PA-C Work Phone: Start: 10-16-2012 [...] DTaP,Tdap,Td Vaccine (3 - Td or Tdap) [facility] Start: 07-17-2024 Patient referral [facility] Work Phone: Start: 07-17-2024 Basic metabolic 2008 panel with ionized calcium - Serum or Plasma [facility] Start: 07-17-2024 CBC W Auto Differential panel - Blood [facility] Start: 05-15-2024 Patient referral [facility] Work Phone: Start: 11-15-2023 End: 11-15-2023 Patient encounter procedure 11/15/2023 11:30 AM EDT [facility] [address] [place], [place] [id number] Ita Garcia MD [address] [id number] maria a ASIF MD [facility] Comment on above: maria a ASIF MD Start: 11-05-2023 End: 11-05-2023 Patient encounter procedure 11/05/2023 9:00 AM EDT Appointment [facility] [address] [place], [place] [id number] scheduled w/dr office [facility] Comment on above: scheduled w/dr office Start: 10-21-2023 Influenza vaccination Influenza Vaccine (#1) [facility] Start: 09-05-2023 End: 09-05-2023 Patient encounter procedure 09/05/2023 2:30 PM EDT Office Visit [facility] [address] [place], [place] [id number] Ita Garcia MD [address] [id number] New Patient - Referral - achalsia of cardia-referred by Dr. John [facility] Comment on above: New Patient - Referral - achalsia of car cami-referred by Dr. John Start: 06-22-2023 Patient discharge [facility] Start: 06-12-2023 Colonoscopy w/biopsy single/multiple COLONOSCOPY AND BIOPSY [facility] Start: 06-12-2023 Esophagogastroduodenoscopy transoral diagnostic EGD DIAGNOSTIC BRUSH WASH [facility] Start: 06-12-2023 Patient discharge [facility] Start: 03-08-2023 Anes esoph thyrd larynx trach & lymph neck 1yr ANESTH NECK ORGAN 1YR/> [facility] Start: 03-08-2023 Parathyroidectomy/exploration parathyroids EXPLORE PARATHYROID GLANDS [facility] Start: 03-08-2023 Patient discharge [facility] Start: 02-19-2023 Advance Directive Discussion Advance Directive Discussion [facility] Start: 02-19-2023 Behavioral Health Screening Behavioral Health Screening [facility] Start: 10-20-2022 Covid-19 Vaccine () Covid-19 Vaccine () [facility] Start: 10-20-2022 Covid-19 Vaccine () Covid-19 Vaccine () [facility] Start: 09-15-2022 Procedure [facility] Start: 06-29-2022 Anes lithotrp xtrcorp shock wave w/o water bath ANESTH KIDNEY STONE DESTRUCT [facility] Start: 06-29-2022 Cysto/uretero w/lithotripsy &indwell stent insrt CYSTO/URETERO W/LITHOTRIPSY [facility] Start: 06-29-2022 Patient discharge [facility] Start: 06-08-2022 Anes trurl fragmntj manj&/rmvl ureteral calculus ANESTH STONE REMOVAL [facility] Start: 06-08-2022 Cysto/uretero w/lithotripsy &indwell stent insrt CYSTO/URETERO W/LITHOTRIPSY [facility] Start: 06-08-2022 Patient discharge [facility] Start: 10-12-2019 Pneumococcal Vaccine: 65+ (2 of 2 - PPSV23 or PCV20) Pneumococcal Vaccine: 65+ (2 of 2 - PPSV23 or PCV20) [facility] Start: 07-10-2017 End: 07-10-2017 Appointment Appointment [facility] Work Phone: Start: 12-29-2016 End: 12-29-2016 ARCHITECTURAL TECHNICIAN ARCHITECTURAL TECHNICIAN [facility] Work Phone: Start: 12-29-2016 End: 12-29-2016 Follow Up Appt 6 months Follow Up Appt 6 months [facility] Work Phone: Start: 12-29-2016 End: 12-29-2016 Appointment Appointment [facility] Work Phone: Start: 12-29-2016 End: 12-29-2016 Appointment Appointment [facility] Work Phone: Start: 06-30-2016 End: 12-19-2016 Ecg routine ecg w/least 12 lds w/i&r EKG (In office) [facility] Work Phone: Start: 06-30-2016 End: 12-19-2016 Follow Up Appt 6 months Follow Up Appt 6 months [facility] Work Phone: Start: 06-30-2016 End: 12-19-2016 MMM MMM [facility] Work Phone: Start: 06-30-2016 End: 06-30-2016 Appointment Appointment [facility] Work Phone: Start: 06-30-2016 End: 06-30-2016 Electrocardiogram, complete EKG (In office) [facility] Work Phone: Start: 06-30-2016 End: 06-30-2016 Follow Up Appt 6 months Follow Up Appt 6 months [facility] Work Phone: Start: 06-30-2016 End: 06-30-2016 MMM MMM [facility] Work Phone: Start: 12-28-2015 End: 12-28-2015 Follow Up Appt 6 months Follow Up Appt 6 months [facility] Work Phone: Start: 12-28-2015 End: 12-28-2015 MMM MMM [facility] Work Phone: Start: 12-28-2015 End: 12-28-2015 Follow Up Appt 6 months Follow Up Appt 6 months [facility] Work Phone: Start: 12-28-2015 End: 12-28-2015 MMM MMM [facility] Work Phone: Start: 09-27-2015 End: 09-27-2015 Colonoscopy flx dx w/collj spec when pfrmd Colonoscopy [facility] Work Phone: Start: 09-27-2015 End: 09-27-2015 Esophagogastroduodenoscopy transoral diagnostic Upper gastrointestinal endoscopy [facility] Work Phone: Start: 09-27-2015 End: 09-27-2015 Diagnostic colonoscopy Colonoscopy [facility] Work Phone: Start: 09-27-2015 End: 09-27-2015 Uppr gi endoscopy, diagnosis Upper gastrointestinal endoscopy [facility] Work Phone: Start: 09-20-2015 End: 09-24-2015 Follow Up after Imaging/labs Follow Up after Imaging/labs [facility] Work Phone: Start: 09-20-2015 End: 09-24-2015 Primary Care Physician Primary Care Physician [facility] Work Phone: Start: 09-20-2015 End: 09-24-2015 Radex esophagus X-Ray, Esophagus & Pharynx [facility] Work Phone: Start: 09-20-2015 End: 09-24-2015 Contrast x-ray, esophagus X-Ray, Esophagus & Pharynx [facility] Work Phone: Start: 09-20-2015 End: 09-24-2015 Follow Up after Imaging/labs Follow Up after Imaging/labs [facility] Work Phone: Start: 09-20-2015 End: 09-24-2015 Primary Care Physician Primary Care Physician [facility] Work Phone: Start: 06-18-2015 End: 06-18-2015 ARCHITECTURAL TECHNICIAN ARCHITECTURAL TECHNICIAN [facility] Work Phone: Start: 06-18-2015 End: 06-18-2015 Follow Up Appt 6 months Follow Up Appt 6 months [facility] Work Phone: Start: 06-18-2015 End: 06-18-2015 ARCHITECTURAL TECHNICIAN ARCHITECTURAL TECHNICIAN [facility] Work Phone: Start: 06-18-2015 End: 06-18-2015 Follow Up Appt 6 months Follow Up Appt 6 months [facility] Work Phone: Start: 11-19-2014 End: 11-19-2014 Ecg routine ecg w/least 12 lds w/i&r EKG (In office) [facility] Work Phone: Start: 11-19-2014 End: 11-19-2014 Follow Up Appt 6 months Follow Up Appt 6 months [facility] Work Phone: Start: 11-19-2014 End: 11-19-2014 MMM MMM [facility] Work Phone: Start: 11-19-2014 End: 11-19-2014 Electrocardiogram, complete EKG (In office) [facility] Work Phone: Start: 11-19-2014 End: 11-19-2014 Follow Up Appt 6 months Follow Up Appt 6 months [facility] Work Phone: Start: 11-19-2014 End: 11-19-2014 MMM MMM [facility] Work Phone: Start: 08-05-2014 End: 08-05-2014 ARCHITECTURAL TECHNICIAN [employer] [facility] Work Phone: Start: 08-05-2014 End: 08-05-2014 Ecg routine ecg w/least 12 lds w/i&r EKG (In office) [facility] Work Phone: Start: 08-05-2014 End: 08-05-2014 Follow Up Appt 3 months Follow Up Appt 3 months [facility] Work Phone: Start: 08-05-2014 End: 08-05-2014 ARCHITECTURAL TECHNICIAN ARCHITECTURAL TECHNICIAN [facility] Work Phone: Start: 08-05-2014 End: 08-05-2014 Electrocardiogram, complete EKG (In office) [facility] Work Phone: Start: 08-05-2014 End: 08-05-2014 Follow Up Appt 3 months Follow Up Appt 3 months [facility] Work Phone: Start: 04-16-2014 End: 04-16-2014 ARCHITECTURAL TECHNICIAN ARCHITECTURAL TECHNICIAN [facility] Work Phone: Start: 04-16-2014 End: 04-16-2014 Ecg routine ecg w/least 12 lds w/i&r EKG (In office) [facility] Work Phone: Start: 04-16-2014 End: 04-16-2014 Follow Up Appt 1 year Follow Up Appt 1 year [facility] Work Phone: Start: 04-16-2014 End: 04-16-2014 ARCHITECTURAL TECHNICIAN ARCHITECTURAL TECHNICIAN [facility] Work Phone: Start: 04-16-2014 End: 04-16-2014 Electrocardiogram, complete EKG (In office) [facility] Work Phone: Start: 04-16-2014 End: 04-16-2014 Follow Up Appt 1 year Follow Up Appt 1 year [facility] Work Phone: Start: 10-20-2013 End: 04-27-2015 *Hepatic Function Panel *Hepatic Function Panel [facility] Work Phone: Start: 10-20-2013 End: 04-27-2015 Lipid panel [AGGREGATE] *Lipid Profile CC PCP [facility] Work Phone: Start: 10-20-2013 End: 04-27-2015 *Hepatic Function Panel *Hepatic Function Panel [facility] Work Phone: Start: 10-20-2013 [...] 1 year Follow Up Appt 1 year [facility] Work Phone: Start: 04-17-2013 End: 04-17-2013 MMM MMM [facility] Work Phone: Start: 10-16-2012 End: 11-11-2012 *Hepatic Function Panel *Hepatic Function Panel [facility] Work Phone: Start: 10-16-2012 End: 10-16-2012 ARCHITECTURAL TECHNICIAN ARCHITECTURAL TECHNICIAN [facility] [facility] Work Phone: Start: 10-16-2012 End: 10-16-2012 Follow Up Appt 6 months Follow Up Appt 6 months [facility] Work Phone: Start: 10-16-2012 End: 11-19-2012 Lipid panel [AGGREGATE] *Lipid Profile CC PCP [facility] Work Phone: Start: 10-16-2012 End: 11-11-2012 *Hepatic Function Panel *Hepatic Function Panel [facility] Work Phone: Start: 10-16-2012 End: 10-16-2012 ARCHITECTURAL TECHNICIAN ARCHITECTURAL TECHNICIAN [facility] Work Phone: Start: 10-16-2012 End: 10-16-2012 Follow Up Appt 6 months Follow Up Appt 6 months [facility] Work Phone: Start: 10-16-2012 End: 11-19-2012 Lipid panel [AGGREGATE] *Lipid Profile CC PCP [facility] Work Phone: Start: 04-19-2012 End: 04-19-2012 Ecg routine ecg w/least 12 lds w/i&r EKG (In office) [facility] Work Phone: Start: 04-19-2012 End: 04-19-2012 Follow Up Appt 6 months Follow Up Appt 6 months [facility] Work Phone: Start: 04-19-2012 End: 04-19-2012 MMM MMM [facility] Work Phone: Start: 04-19-2012 End: 04-19-2012 Electrocardiogram, complete EKG (In office) [facility] Work Phone: Start: 04-19-2012 End: 04-19-2012 Follow Up Appt 6 months Follow Up Appt 6 months [facility] Work Phone: Start: 04-19-2012 End: 04-19-[address] [facility] Work Phone: Start: 2012 Pneumococcal Vaccine: 65+ (1 of 1 - PCV) Pneumococcal Vaccine: 65+ (1 of 1 - PCV) [facility] Start: 2012 Screening for osteoporosis Bone Density Screening [facility] Start: 2007 RSV Vaccine (1 - 1-dose 60+ series) RSV Vaccine (1 - 1-dose 60+ series) [facility] Start: 1997 Shingrix Vaccine (1 of 2) Shingrix Vaccine (1 of 2) [facility] Start: 1992 Diabetes Screening Diabetes Screening [facility] Start: 1965 Hepatitis C screening Hepatitis C Screening [facility] Anion gap in Serum or Plasma [facility] BUN/Creatinine ratio [facility] Calcium [Mass/volume ] in Serum or Plasma [facility] Calculus analysis [facility] Carbon dioxide, tota l [Moles/volume] in Central venous blood [facility] Colonoscopy [facility] Creatinine [Mass/vol ume] in Serum or Plasma [facility] Cytology report of B hector fluid Cyto stain [facility] Erythrocyte mean cor puscular volume determination [facility] Glucose [Mass/volume ] in Serum or Plasma [facility] Hematocrit [Volume F raction] of Blood [facility] Hemoglobin [Mass/vol ume] in Blood [facility] Leukocytes [#/volume] in Blood [facility] Mean corpuscular hem oglobin concentration determination [facility] Mean corpuscular hem oglobin determination [facility] Measurement of renal function [facility] Measurement of weigh t of calculus [facility] Neutrophil count [facility] Neutrophil percent d ifferential count [facility] Origin of Stone [facility] Patient Education [facility] Work Phone: Patient referral [facility] Work Phone: Platelets [#/volume] in Blood [facility] Potassium measurement [facility] Radiologic exam esop hagus double contrast study [facility] Red blood cell count [facility] Red cell distributio n width determination [facility] Serum chloride measurement [facility] Sodium measurement [facility] Specimen color determination [facility] Urea nitrogen [Mass/ volume] in Serum or Plasma [facility] End: 10-04-2024 XR Esophagus Views W contrast PO XR ESOPHAGRAM Radiology Routine Esophagogastric junction outflow obstruction 1 Occurrences starting 09/05/2023 until 10/04/2024 [facility] Work Phone: Comment on above: 1 Occurrences starting 09/05/2023 until 10/04/2024 [facility] Immunizations Immunization Date Immunization Notes Care Provider Jeniffer ramirez 11-23-2022 influenza virus vaccine, unspecified formulation Ita Garcia MD Work Phone: [facility] 10-08-[address] Rui Rea Work Phone: [facility] 06-03-2020 Covid (Pfizer) Dr. Rui bledsoe Work Phone: [facility] 10-20-[address] Rui Rea Work Phone: [facility] 10-20-2017 influenza, seasonal, injectable, preservative free Ita Garcia MD Work Phone: [facility] 10-20-2017 influenza virus vaccine, unspecified formulation Ita Garcia MD Work Phone: [facility] 01-01-2015 tetanus toxoid, redu vesna diphtheria toxoid, and acellular pertussis vaccine, adsorbed Ita Garcia MD Work Phone: [facility] 12-22-2014 tetanus toxoid, redu vesna diphtheria toxoid, and acellular pertussis vaccine, adsorbed Dr. Rui Rea Work Phone: [facility] Payers Date Payer Category Payer Self-pay [id number] 2017 Medicare [employer] [place] [place] MED[place] [id number] 2017-Present [phone] [address] [place] [id number] HMO [id number] 2017 Medicare [id number] Medicare [id number] Unknown [id number] [id number]2 Unknown [id number] 2.16.840.1.755053.3.579.2.462 Unknown [id number] 2.16.840.1.881719.3.579.2.462 Unknown [id number] 2.16.840.1.695071.3.579.2.462 Unknown [id number] 2.16.840.1.761359.3.579.2.462 Unknown [id number] 2.16.840.1.181419.3.579.2.462 Unknown [id number] 2.16.840.1.567052.3.579.2.462 Unknown [id number] 2.16.840.1.996118.3.579.2.462 Unknown [id number] 2.16.840.1.184952.3.579.2.462 Unknown [id number] 2.16.840.1.167169.3.579.2.462 Unknown [id number] 2.16.840.1.094847.3.579.2.462 Unknown [id number] 2.16.840.1.660538.3.579.2.462 Unknown [id number] 2.16.840.1.294938.3.579.2.462 Unknown [id number] 2.16.840.1.211514.3.579.2.462 Unknown [id number] 2.16.840.1.647633.3.579.2.462 Unknown [id number] 2.16.840.1.963288.3.579.2.462 Unknown [id number] 2.16.840.1.320374.3.579.2.462 Unknown [id number] 2.16.840.1.338983.3.579.2.462 Unknown [id number] 2.16.840.1.448541.3.579.2.462 Unknown [id number] 2.16.840.1.724157.3.579.2.462 Unknown [id number] 2.16.840.1.848156.3.579.2.462 Unknown [id number] 2.16.840.1.498114.3.579.2.462 Unknown [id number] 2.16.840.1.577497.3.579.2.462 Unknown [id number] 2.16.840.1.349301.3.579.2.462 Unknown [id number] 2.16.840.1.511512.3.579.2.462 Unknown [id number] 2.16.840.1.112630.3.579.2.462 Social History Date Type Detail Facility Start: 07-05-2021 End: 06-05-2023 Tobacco smoking status NHIS Unknown if ever smoked [facility] Start: 07-20-2018 None [facility] Start: 07-20-2018 Alone [facility] Start: 07-21-2018 Non-smoker [facility] Start: 1945 Sex Assigned At Female [facility] Start: 09-05-2023 End: 10-23-2024 Tobacco smoking status NHIS Never smoked tobacco [facility] Start: 08-31-2023 End: 09-05-2023 Alcohol intake Lifetime non-drinker (finding) [facility] Start: 11-16-2020 End: 08-31-2023 History of Social function [facility] Start: 11-16-2020 End: 08-31-2023 Tobacco use panel [facility] National Score (1-100), lower number is lower risk Not on file [facility] Start: 1945 Sex Assigned At Not on file [facility] Start: 09-05-2023 Tobacco use and exposure Smokeless tobacco non-user [facility] NEGATED: Highlighted row [facility] Medical Equipment Procedure Code Equipment Code Equipment Origin al Text Equipment Identifier Dates Parathyroidectomy Ligation clip, metallic ()[id number] FDA Start: 03-08-2023 Parathyroidectomy Ligation clip, metallic ()[id number] FDA Start: 03-08-2023 Cystoscopy, with retrograde pyelogram, ureteroscopy, laser procedure, and stent inser ([id number]) Polymeric ureteral stent ()[id number] FDA Start: 06-08-2022 Colonoscopy Ligation clip, metallic ()[id number] FDA Start: 06-12-2023 ([id number]) Dual-chamber implantable pacemaker, rate-responsive ()[id number] FDA Start: 01-17-2021 ([id number]) Endocardial paci ng lead ()[id number] FDA Start: 01-17-2021 ([id number]) Endocardial paci ng lead ()[id number] FDA Start: 01-17-2021 ([id number]) Polymeric ureter al stent ()[id number] FDA Start: 06-29-2022 Goals Date Patient Goal Desired Activity /State Functional Status Date Assessment Result Facility 06-08-2022 Functional status Ambulates [facility] Work Phone: Mental Status Date Assessment Result Facility 06-22-2023 Cognitive function Awake;Alert;Appropriat e [facility] Work Phone: 06-12-2023 Cognitive function Voice/Name [facility] Work Phone: 03-08-2023 Cognitive function Level Of Consciousness Drowsy [facility] Work Phone: 03-08-2023 Cognitive function Voice/Name [facility] Work Phone: 06-29-2022 Cognitive function Voice/Name [facility] Work Phone: 06-08-2022 Cognitive function Voice/Name [facility] Work Phone: 06-08-2022 Cognitive function Patient Orieriberto ascencio Person;Place;Time [facility] Work Phone: 07-15-2021 Cognitive function Level Of Cons ciousness Awake;Alert;Appropriate;Follow s Commands [facility] Work Phone: Clinical Notes 11-16-2020 to 11-10-2024 Note Date & Type Note Facility 11-10-2024 Procedure note [facility] 09-30-2024 Procedure note [facility] 09-17-2024 Procedure note [facility] 09-17-2024 Evaluation note Diagnosis Onset Date Resolution Paroxysmal atrial fibrillation acute September 17, 2024 9:48am Symptomatic bradycardia acute September 17, 2024 9:48am History of permanent cardiac pacemaker placement January 17, 2021 chronic September 17, 2024 9:48am Persistent atrial fibrillation chronic September 17, 2024 9:48am Tachy-eric syndrome resolved September 17, 2024 9:48am Paroxysmal atrial fibrillation acute September 30, 2024 9:57am Symptomatic bradycardia acute September 30, 2024 9:57am History of permanent cardiac pacemaker placement January 17, 2021 chronic September 30, 2024 9:57am Paroxysmal atrial fibrillation acute September 30, 2024 10:04am Essential (primary) hypertension chronic September 30, 2024 10:04am History of permanent cardiac pacemaker placement January 17, 2021 chronic September 30, 2024 10:04am HLD (hyperlipidemia) chronic September 30, 2024 10:04am Change in bowel habit acute October 23, 2024 7:59am Paroxysmal atrial fibrillation acute November 10, 2024 3:48pm Symptomatic bradycardia acute November 10, 2024 3:48pm History of permanent cardiac pacemaker placement January 17, 2021 chronic November 10, 2024 3:48pm Tachy-eric syndrome resolved November 10, 2024 3:48pm [facility] Work Phone: 1(501) 938-262805-29-2025 Evaluation note* Diagnosis Onset Date Resolution Status Admit Date Globus sensation acute June 9:26am Melena acute July 17, 2024 9:26am Cough resolved July 17, 2024 9:26am Paroxysmal atrial fibrillation acute September 17, 2024 9:48am Symptomatic bradycardia acute J 2024 9:48am History of permanent cardiac pacemaker placement January 17, 2021 chronic September 17, 025 9:48am Persistent atrial fibrillation chronic September 17, 2024 9:48am Tachy-eric syndrome resolved September 17, 2024 9:48am [facility] Work Phone: 1(270) 911-287505-29-2025 Evaluation note* Diagnosis Onset Date Resolution Status Admit Date Globus sensation acute June 9:26am Melena acute July 17, 2024 9:26am Cough resolved July 17, 2024 9:26am Paroxysmal atrial fibrillation acute September 17, 2024 9:48am Symptomatic bradycardia acute J 2024 9:48am History of permanent cardiac pacemaker placement January 17, 2021 chronic September 17, 2 025 9:48am Persistent atrial fibrillation chronic September 17, 2024 9:48am Tachy-eric syndrome resolved September 17, 2024 9:48am Paroxysmal atrial fibrillation acute September 30 9:57am Symptomatic bradycardia acute A ug2024 9:57am History of permanent cardiac pacemaker placement January 17, 2021 chronic September 30, 2024 9:57am Paroxysmal atrial fibrillation acute September 30 10:04am Essential (primary) hypertension chronic September 30 10:04am History of permanent cardiac pacemaker placement January 17, 2021 chronic September 30, 2024 10:04am HLD (hyperlipidemia) chronic 2024 10:04am [facility] Work Phone: 1(523) 815-705605-19-2025 Radiology Diagnostic study note [facility] Imaging Services [address] [place] [address] Esophagus Dual Contrast MR#: [id number] Acct: [id number] Name: SHIRLEY SHULTZ Rep #: [id number] : 1945 F 79 From: Jourdan Sierra MD PCP: Dr. Bria Spencer MD Status: REG CLI Study:Esophagus Dual Contrast Date of Exam: 07/07/24 Exam# [id number] Ordering Dr: Clarisse Walden PROCEDURE: ESOPHAGUS DUAL CONTRAST 07/07/2024 REASON FOR EXAM: DYSPHAGIA TECHNIQUE: The patient ingested barium. Fluoroscopic imaging of the esophagus was performed. 1 minute and 14 seconds of fluoroscopy. 30.89 mGy. COMPARISON: None FINDINGS: The patient ingested barium. No evidence of esophageal obstruction. No evidence of gastroesophagealreflux. The patient ingested a 12 mm tablet the barium without difficulty. The patient tolerated the procedure well. RAD/Esophagus Dual Contrast IMPRESSION: Unremarkable air contrast esophagram. Reading Location: [place] [address] CC: JALEN Walden; Dr. Bria Spencer MD ~ [employer] Operator: Signed [facility]05-14-2025 Procedure note [facility] Speech Pathology [address] [place] [address] Modified Barium Swallow Study MR#: [id number] Acct: [id number] Name: SHIRLEY SHULTZ Rep #:[id number] : 1945 79 From: Shital Bliss, [facility] Modified Barium Swallow Patient Information Study Date: 07/01/24 Study Time: 13:00 Direct Billable Minutes: 94 Total Minutes procedure & reportin Diagnosis: Dysphagia R13.10 Referring Physician: Clarisse [...] swallowing difficulty for the past 3 years. ~1-2X/week she feels as if she has a marble in her throat when swallowing foods or drinks. Coughing or a liquid wash typically clears this sensation. No regurgitation or odynophagia. She initially attributedher difficulty to eating/drinking too fast; however, herdifficulty still occursif shes taking food/drink slowly. Medical History: PMH: Right renal stone, Cataracts bilateral, Wears glasses, Wears dentures, Arthritis, History of hiatal hernia, History of diverticulitis, Non-smoker, Sleep apnea, Hx of A fib, Symptomatic bradycardia, HTN, Fecal incontinence, Cystocele with rectocele, Hypokalemia, [...] Scale: OBJECTIVE ASSESSMENT OF SWALLOW FUNCTION (QUANTITATIVE ? PER TRIAL): PENETRATION / ASPIRATION SCALE (NUNEZ): [...] cup: Result: 2= enter airway/above vocal folds/ejected [place] Thick Liquid via large single sip: cup: Result: 2= enter airway/above vocal folds/ejected Pudding via teaspoon: Result: 1= does not enter airway Comment: Esophageal screen - Minimal retention in the UES. Retention of majority of trialin the middle and lower esophagus. Thin Liquid [...] Posterior escape of greater than half of bolus(sequential thin) Bolus Preparation/Mastication: Slow prolonged chewing/mashing with [...] at Height of Swallow: Incomplete; narrow column of air/contrast in laryngeal vestibule (laryngeal penetration fully ejected by the end of the swallow) Pharyngeal Stripping Wave: Present - diminished Pharyngoesophageal Segment Opening: Parital distension and partial duration; parital obstruction offlow Tongue Base Retraction: Narrow column of contrast between tongue base & post. pharyngeal wall Pharyngeal Residue: Collection of residue within or on pharyngeal structures Esophageal Phase Esophageal Clearance: Esophageal retention w/ retrograde flow below pharyngoesophageal seg. Diagnosis/Impression Diagnosis: Mild oropharyngeal dysphagia R13.12; Esophageal dysphagia R13.14 Impression: The oral phase is primarily marked by... -Posterior loss of >1/2 of sequential thin liquids boluses to the posterior surface of the epiglottis prior to swallow onset. -Prolonged, but complete mastication. -Piecemeal deglutition of pudding, cookie, and even liquids. The pharyngeal phase is primarily marked by... -Mildly decreased TB retraction, pharyngeal stripping wave, and UES opening/duration resulting in trace-mild pharyngeal residues, most noticeable w/pudding. -Decreased anterior hyoid excursion w/ trace laryngeal penetration of 2 thin liquid and 1 mildly thick liquid trials; however, the contrast fully ejected as the swallow was completed. No aspiration observed. The esophageal phase is primarily marked by... -Minimal retention of pudding in the UES, which cleared w/ liquid wash. -Significant retention of pudding and cookie in the lower and middle esophagus, which mostly cleared w/ liquid wash; however, liquid wash had some retrograde flow through the LES. Recommendations Diet: Regular Textures and Thin Liquids Comment: If sensation of retention despite use of liquid wash, stop meal and resume at a later time. Compensatory Strategies: Small Bites, Small Sips, Slow Rate, Alternate bites/solids and sips/liquids, Sitting upright and Remain sitting upright for 30minutes after PO intake Recommend Repeat Modified Barium Swallow: No Need for Skilled Speech Therapy Services: Yes Comment: -Training in strategies to decrease risk for aspiration and reflux aspiration. -Training in oropharyngeal exercises, including lingual resistance, Tiffany, Effortful, Rishi, and Shaker. -Ongoing assessment of recommended diet textures. Recommended Referrals: GI Consult (Pt is safe to proceed w/ barium esophagram planned for next week.) Education Completed: 1. Described result of evaluation., 2. Pt understands evaluation & agrees with goals and treatment plan. and 7. Pt requires further education on strategies & risks. Status Active ST Patient: Active Contact Information [facility] Speech Therapy:: Shital Hernandes M.A. [facility]? Speech-Language Pathologist?? [facility] [address] [place] [address]? [email or web address]?? [phone] 07/02/24 0702 M.A., CCC-BRIDGE ENGINEER> Date/Time Shital Hernandes M.A. CCC-BRIDGE ENGINEER Co-Signature Required for all Medicare patients Date/Time Co-Signature CC: ~ [facility]03-27-2025 Evaluation note* Diagnosis Onset Date Resolution Status Admit Date Change in bowel habit acute Apr 2024 10:01am Constipation acute May 15, 2024 10:01am Dysphagia acute May 15 10:01am [facility] Work Phone: 1(230) 690-551303-27-2025 Evaluation note* Diagnosis Onset Date Resolution Status Admit Date Change in bowel habit acute Apr 10:01am Constipation acute May 15, 2024 10:01am Dysphagia acute May 15 10:01am Globus sensation acute June 9:26am Melena acute July 17, 2024 9:26am Cough resolved July 17, 2024 9:26am [facility] Work Phone: 1(365) 229-218207-17-2024 NoteHNO ID: [id number] Author: ITA GARCIA MD Service: ? Author [...] intact. DCI within normal limits. EGJOO per [place] Classification - concerning for possible achalasia Social: denies x3 PSHx: cardiac pacemaker placement (2020), cardioversion, cardiac catheterization, TL, detached retina repair, parathyroidectomy PAST MEDICAL HISTORY: PAST MEDICAL HISTORY Diagnosis Date Ambulates with cane Anticoagulant long-term use indication: stroke prevention atrial fibrillation Anxiety and depression Arthritis At risk for stroke [id number] = 3 (HTN, age, female gender) Atrophic vaginitis Back problem Bradycardia Cystocele with rectocele Cystocele with rectocele Diabetes (HCC) Dysphagia Family history of cardiovascular disease Fecal incontinence Generalized anxiety disorder GERD (gastroesophageal reflux disease) Hiatal hernia History of diverticulitis HTN (hypertension) Hypokalemia Lichen sclerosus Mixed hyperlipidemia RION on CPAP Persistent atrial fibrillation (HCC) diagnosed [...] LIGATE FALLOPIAN TUBE 1982 MANOMETRY ESOPHAGEAL 06/22/2023 [facility] PARATHYROIDECTOMY/EXPLORATION PARATHYROIDS REPAIR, DETACHED RETINA, LASER STRESS [...] Current Outpatient Medications Me (more content not included)...[facility]07-17-2024 History of Present illness Narrative* Ita [...] to the requesting physician(s) by way of [facility] medical record or letter via [place] mail. [...] intact. DCI within normal limits. EGJOO per [place] Classification - concerning for possible achalasia Social: denies x3 PSHx: cardiac pacemaker placement (2020), cardioversion, cardiac catheterization, TL, detached retina repair, parathyroidectomy PAST MEDICAL HISTORY: PAST MEDICAL HISTORY Diagnosis Date Ambulates with cane Anticoagulant long-term use indication: stroke prevention atrial fibrillation Anxiety and depression Arthritis At risk for stroke [id number] = 3 (HTN, age, female gender) Atrophic [...] LIGATE FALLOPIAN TUBE 1982 MANOMETRY ESOPHAGEAL 06/22/2023 [facility] PARATHYROIDECTOMY/EXPLORATION PARATHYROIDS REPAIR, DETACHED RETINA, LASER STRESS [...] 05, 2023 TIME: 2:55 PM PAGER/CONTACT #: [phone] [facility] Telephone encounter Note * Telephone Encounter - Dominick Leach - 09/04/2023 7:58 AM EDT Reminder call regarding 09/05/2023 new patient appointment. LVM for patient - asked patient to call back to confirm appointment. Unable to My Chart message sent to patient - MyChart not set up. [facility]07-16-2024 Miscellaneous Notes* Telephone Encounter - Dominick Leach - 09/04/2023 7:58 AM EDT Reminder call regarding 09/05/2023 new patient appointment. LVM for patient - asked patient to call back to confirm appointment. Unable to My Chart message sent to patient - MyChart not set up. [facility] Procedure [facility]04-23-2024 Procedure [facility]04-23-2024 Procedure [facility]04-23-2024 Procedure [facility]02-14-2024 Discharge summary Author Ryan Townsend [facility] April 04, 2023 9:03pm Note Date/Time April 04, 2023 4:53pm [facility] Medical Records Department [address] [place] [address] Emergency Department Summary 04/04/23 MR#: [id number] Acct: [id number] Name: SHIRLEY SHULTZ Rep #:[id number] : 1945 78 From: Ryan Lawrence PCP: Dr. Bria Spencer MD Status:REG ER Location: ED HPI History of Present Illness Chief Complaint: Nausea/Vomiting [facility] Medical History (Updated 04/04/23 @ 20:[address] Ryan Townsend DO) Ambulates with cane Anxiety Arthritis Atrial [...] ANAPHYLAXIS Verified 04/04/23 16:38 [address] [facility] [place] codeine Allergy Intermediate PT UNSURE Verified 04/04/23 [...] Oxygen Delivery Method Room Air Room Air MDM MDM MDM Narrative Medical decision making narrative: HISTORY OF [...] reviewed, Vital signs reviewed Constitutional: please see mdm HENT: MMM Eyes: Pupils equal round and [...] History obtained from others: none Consults: none MDM Narrative: Patient was initially hemodynamically stable, afebrile [...] Discharge home This note was generated with [employer] dictation software. It may contain incorrectwords, spelling, [...] 80.1 H Lymph % (Auto) 11.6 L [place] % (Auto) 7.1 Eos % (Auto) 0.3 [...] Sl. Cloudy Urine pH 5.0 Ur Specific [place] 1.020 Urine Protein 100 H Urine Glucose [...] Plan Triage Chief Complaint: Nausea/Vomiting ED Provider: yRan Townsend Dx/Rx/DC Orders Clinical Impression: Colitis, Nausea [...] DAYS PRE-OP AND 2 DAYS POST-OP PER [facility] Rx Instructions: must administer with evening meal [...] your Primary Care Provider. Call [facility] ([phone]) or report to the closest Emergency Room. Call 911 if necessary. 04/04/232102 <Electronically signed by Ryan Townsend DO> Cosigner Signature (if applicable): CC: Dr. Bria Spencer MD ~ Signed [facility] Work Phone: 1(899) 569-562201-18-2024 History and physical note Author Azar Hammonds [facility] March 08, 2023 7:40am Note Date/Time March 08, 2023 7 :40am [facility] Medical Records Department [address] [place] [address] History & Physical Exam 03/08/23 0739 MR#: [id number] Acct: [id number] Name: SHIRLEY SHULTZ Rep #:[id number] : 1945 77 From: Azar Hickman PCP: Dr. Bria Spencer MD Status:REG [facility] Location: [place] [address] History and Physical Date of Admission: 03/08/23 Date of Service: 02/27/23 MR#: [id number] Acct: [id number] Name: SHIRLEY SHULTZ Rep #: [id number] : 1945 Provider: Dr. Azar Hammonds MD Age/Sex: 77/F Location: [facility] Status: Signed Intake Vital Signs 12/20/2313:56 [...] UNSURE OF REACTIONtrimethoprim [From Bactrim] Allergy (Intermediate, Tjjgeidm64/09/24 08:07) PT UNSURE OF REACTION Medications cholecalciferol [...] mg PO DAILY 02/27/23 [History Confirmed 02/27/23] PFS Medical History Ambulates with cane Anxiety Arthritis [...] fibrillation and pacemaker placement managed by the [facility]. ROS General General: Yes fatigue; [...] couple of months and wishes to postpone surgeryuntfebruary. I have shared with her that we [...] Spencer MD; Dr. Azar Hammonds MD~ Signed [facility] Work Phone: 1(431) 750-785205-11-[address] Mejia [facility] June 29, 2022 10:15am Note Date/Time June 29, 2022 8:52a m [facility] Medical Records Department [address] [place] [address] Instructions for Home/Discharge Instructions 06/29/22 0852 MR#: [id number] Acct: [id number] Name: SHIRLEY SHULTZ Rep #:[id number] : 1945 77 From: Ninfa Hickman PCP: Dr. Bria Spencer MD Status:REG SDC Discharge Instructions Diet Discharge Diet: No restrictions [...] CC: Dr. Bria Spencer MD ~ Signed [facility] Work Phone: 1([phone]) 255-931805-11-2023 Procedure [facility] 06-08-[address] Mejia [facility] June 08, 2022 8:38am Note Date/Time June 08, 2022 8:3 5am [facility] Medical Records Department [address] [place] [address] Instructions for Home/Discharge Instructions 06/08/22 0834 MR#: [id number] Acct: [id number] Name: SHIRLEY SHULTZ Rep #:[id number] : 1945 77 From: Ninfa Hickman PCP: Dr. Bria Spencer MD Status:REG [facility] Discharge Instructions Diet Discharge Diet: No restrictions [...] CC: Dr. Bria Spencer MD ~ Signed [facility] Work Phone: 1([phone]) 507-171011-29-2021 Evaluation note* Diagnosis Onset Date Resolution Status Essential (primary) hypertension acute Persistent atrial fibrillation acute History of permanent cardiac pacemaker placement January 17, 2021 chronic Persistent atrial fibrillation acute Symptomatic bradycardia acut e History of permanent cardiac pacemaker placement January 17, 2021 chronic Tachy-eric syndrome resolve d Pelvic pain acute [facility] Work Phone: [phone]) 313-158111-29-2021 Evaluation note* Diagnosis Onset Date Resolution Status Essential (primary) hypertension acute Persistent atrial fibrillation acute History of permanent cardiac pacemaker placement January 17, 2021 chronic Persistent atrial fibrillation acute Symptomatic bradycardia acut e History of permanent cardiac pacemaker placement January 17, 2021 chronic Tachy-eric syndrome resolve d Pelvic pain acute COVID-19 acute [facility] Work Phone: [phone]) [phone] Evaluation note* Diagnosis Onset Date Resolution Status Essential (primary) hypertension acute Persistent atrial fibrillation acute History of permanent cardiac pacemaker placement January 17, 2021 chronic Persistent atrial fibrillation acute Symptomatic bradycardia acut e History of permanent cardiac pacemaker placement January 17, 2021 chronic Tachy-eric syndrome resolve d [facility] Work Phone: 1([phone]) 214-861311-29-2021 Evaluation note* Diagnosis Onset Date Resolution Status Persistent atrial fibrillation acute Symptomatic bradycardia acut e History of permanent cardiac pacemaker placement January 17, 2021 chronic Tachy-eric syndrome resolve d [facility] Work Phone: [phone]) 592-933111-29-2021 Evaluation note* Diagnosis Onset Date Resolution Status [...] atrial fibrillation chronic Tachy-eric syndrome resolve d [facility] Work Phone: [phone]) [phone] Evaluation note* Diagnosis Onset Date Resolution Status [...] atrial fibrillation chronic Tachy-eric syndrome resolve d [facility] Work Phone: [phone]) 988-376911-29-2021 Evaluation note* Diagnosis Onset Date Resolution Status History of permanent cardiac pacemaker placement January 17, 2021 chronic Persistent atrial fibrillation chronic Tachy-eric syndrome resolve d [facility] Work Phone: [phone]) 309-669311-29-2021 Evaluation note* Diagnosis Onset Date Resolution Status History of permanent cardiac pacemaker placement January 17, 2021 chronic Persistent atrial fibrillation chronic Tachy-eric syndrome resolve d Monilial intertrigo acute Encounter for routine gyneco logical examination noneactive [facility] Work Phone: [phone]) [phone] Evaluation note* Diagnosis Onset Date Resolution Status History of permanent cardiac pacemaker placement January 17, 2021 chronic Persistent atrial fibrillation chronic Tachy-eric syndrome resolve d Monilial intertrigo acute Encounter for routine gyneco logical examination noneactive Symptomatic bradycardia acut e History of permanent cardiac pacemaker placement January 17, 2021 chronic Persistent atrial fibrillation chronic Tachy-eric syndrome resolve d [facility] Work Phone: [phone]) 220-451511-29-2021 Evaluation note* Diagnosis Onset Date Resolution Status Monilial intertrigo acute Encounter for routine gyneco logical examination noneactive Symptomatic bradycardia acut e History of permanent cardiac pacemaker placement January 17, 2021 chronic Persistent atrial fibrillation chronic Tachy-eric syndrome resolve d Essential (primary) hypertension chronic History of permanent cardiac pacemaker placement January 17, 2021 chronic Persistent atrial fibrillation [facility] Work Phone: [phone]) 371-797111-29-2021 Evaluation note* Diagnosis Onset Date Resolution Status Essential (primary) hypertension chronic History of permanent cardiac pacemaker placement January 17, 2021 chronic Persistent atrial fibrillation [facility] Work Phone: [phone]) 241-516309-28-2021 NoteHNO ID: [id number] Author: oJhana Knight APRN.RN UTILIZATION MANAGEMENT [facility] Service: ? Author Type: Nurse Practitioner Type: [...] Discussed expected course of illness Johana Knight APRN.[facility]* Diagnosis Onset Date Resolution Status Pelvic pain acute Encounter for routine gyneco logical examination noneactive Monilial intertrigo noneacti ve COVID-19 acute Essential (primary) hypertension acute Persistent atrial fibrillation acute History of permanent cardiac pacemaker placement January 17, 2021 chronic Persistent atrial fibrillation acute Symptomatic bradycardia acut e History of permanent cardiac pacemaker placement January 17, 2021 chronic Tachy-erci syndrome resolve d [facility] Work Phone: Evaluation note* Diagnosis Onset Date Resolution Status Hyperparathyroidism, primary acute [facility] Work Phone: Evaluation note* Diagnosis Onset Date Resolution Status Hyperparathyroidism, primary acute Hyperparathyroidism, primary acute [facility] Work Phone: Evaluation note* Diagnosis Onset Date Resolution Status Hyperparathyroidism, primary acute Hyperparathyroidism, primary acute Hypoparathyroidism 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 acute Status post parathyroidectomy acute [facility] Work Phone: Evaluation note* Diagnosis Onset Date Resolution Status Hyperparathyroidism, primary acute Hypoparathyroidism 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 acute Status post parathyroidectomy acute Dysphagia acute [facility] Work Phone: Evaluation note* Diagnosis Esophagogastric [...] obesity type (HCC) [facility] Win John [facility] June 12, 2023 7:02am Note Date/Time June 12, 2023 7:0 2am [facility] Medical Records Department [address] [place] [address] History & Physical Exam 06/12/23 0702 MR#: [id number] Acct: [id number] Name: SHIRLEY SHULTZ Rep #:[id number] : 1945 78 From: Win vasques MD PCP: Dr. Bria Spencer MD Status:[facility] Location: [place] [address] History and Physical Date of Admission: 06/12/23 Intake Vital Signs 04/04/2415:38 05/21/2407:30 Height 5 ft 4 in 5 ft 4 in Weight: 202 lb BMI 34.7 BP 98/68 Blood Pressure Location Rt brachial Position Sitting Respiration 16 Intake Visit Reasons: C-Scope gastroenteritis and colitis Chief Complaint: scopes Materials Technician Required: No Is patient in pain?: Yes [...] UNSURE OF REACTIONtrimethoprim [From Bactrim] Allergy (Intermediate, Tanxxglo26/01/24 08:30) PT UNSURE OF REACTIONmetformin Adverse Reaction [...] vomiting #20 tabs 04/04/23 [Rx Confirmed 05/21/23] [facility] Medical History (Updated 05/21/23 @ 08:54 by [...] General: cooperative Orientation: alert and oriented x3 [facility] Head: normal to inspection Neck Neck: normal [...] proceed with procedure. Win John MD Pager: [facility] [address] [place] [address], [address] [place] [address] Office: I have examined the patient and the H&P has been reviewed. There are no clinicalchanges since date of exam. 06/12/23 0702 <Electronically signed by Win John MD> Cosigner Signature (if applicable): CC: Dr. Win John MD; Dr. Bria Spencer MD~ Signed [facility] Work Phone: Hospital Discharge instructions Additional Instructions [facility]charge [facility] Additional Instructions [facility] Work [facility]: Hospital Discharge instructions Additional Instructions [...] care physician for further outpatient evaluation and management.[facility] Work Phone: Reason for referral (narrative)* Diagnostic Procedure Only (Routine) - Authorized Specialty Diagnoses / Procedures Referred By Contac t Referred To Contact XR IMAGING Diagnoses Esophagogastric junction outflow obstruction Procedures XR ESOPHAGRAM RADIOLOGIC EXAM ESOPHAGUS SINGLE CONTRAST STUDY Ita Garcia MD 1 [facility] [place] [address] [place] [address] [place] [id number] Referral ID Status Reason Start Date Expiration Date Visits Requested Visits Authorized [id number] Authorized Auto-Generat ed Referral 09/05/2023 10/04/2024 1 1 [facility]ative[facility]No reason for referral information available[facility] Work Phone: Summary Purpose Family History No Family History [...] December 12:25pm Living Will No February 10 1:45am Power of Windows Systems Architect No February 10, 2021 1:45am Advance Directive Response Recorded Date/ Time Advance Directives No December 12:25pm Living Will No July 15, 2021 1 0:36pm Power of Windows Systems Architect No July 15, 2021 10:36pm Advance Directive Response Recorded Date/ Time Advance Directives No December 12:25pm Living Will No October 07 10:00am Power of Windows Systems Architect No October 07 10:00am Advance Directive Response Recorded Date/ Time Advance Directives No December 11:25am Living Will No October 07 9:00am Power of Windows Systems Architect No October 07 9:00am Advance Directive Response Recorded Date/ Time Advance Directives No December 12:25pm Living Will No June 15, 2022 2:31pm Power of Windows Systems Architect No June 15 2:31pm Advance Directive Response Recorded Date/ Time Advance Directives No December 11:25am Living Will No June 15, 2022 1:31pm Power of Windows Systems Architect No June 15 1:31pm Advance Directive Response Recorded Date/ Time Advance Directives No December 11:25am Living Will No April 04 6:55pm Power of Windows Systems Architect No April 04, 2023 6:55pm Advance Directive Response Recorded Date/ Time Advance Directives No December 12:25pm Living Will No June 05, 2023 1:53pm Power of Windows Systems Architect No June 04 1:53pm Advance Directive Response Recorded Date/ Time Advance Directives No December 12:25pm Advance Directive Response Recorded Date/ Time Living Will No June 05, 2023 1:53pm Do you have a Healthcare Power of Windows Systems Architect? No June 05, 2023 1:53pm Advance Directives No December 12:25pm Chief Complaint and Reason for Visit Chief Complaint 1M FU 3 mos remote PPM f/u Annual (SASH STICKER) SCREENING Reason for Visit Essential (primary) hypertension Persistent atrial fibrillation History of permanent cardiac pacemaker placement Persistent atrial fibrillation Symptomatic bradycardia History of permanent cardiac pacemaker placement Tachy-eric syndrome Pelvic pain Chief Complaint 1M FU 3 mos remote PPM f/u Annual (SASH STICKER) SCREENING PELVIC PAIN Reason for Visit Essential (primary) hypertension Persistent atrial fibrillation History of permanent cardiac pacemaker placement Persistent atrial fibrillation Symptomatic bradycardia History of permanent cardiac pacemaker placement Tachy-eric syndrome Pelvic pain Chief Complaint 1M FU 3 mos remote PPM f/u Annual (SASH STICKER) SCREENING PELVIC PAIN COVID 19 general illness Reason for Visit Essential (primary) hypertension Persistent atrial fibrillation History of permanent cardiac pacemaker placement Persistent atrial fibrillation Symptomatic bradycardia History of permanent cardiac pacemaker placement Tachy-eric syndrome Pelvic pain COVID-19 Chief Complaint Annual (SASH STICKER) SCREENING PELVIC PAIN COVID 19 general illness [...] RT CYSTO, URETEROSCOPY, LASER, BASKET EXTRAC Annual (SASH STICKER) SCREENING Reason for Visit History of permanent cardiac pacemaker placement Persistent atrial fibrillation Tachy-eric syndrome Monilial intertrigo Encounter for routine gynecological examination Chief Complaint 3 mos remote PPM f/u CYSTO BILAT URETEROSCOPY RT LASER RT STENT POSS BI RT CYSTO, URETEROSCOPY, LASER, BASKET EXTRAC Annual (SASH STICKER) SCREENING remote 3mos PPM f/u Reason for Visit History of permanent cardiac pacemaker placement Persistent atrial fibrillation Tachy-eric syndrome Monilial intertrigo Encounter for routine gynecological examination Symptomatic bradycardia History of permanent cardiac pacemaker placement Persistent atrial fibrillation Tachy-eric syndrome Chief Complaint CYSTO BILAT URETEROS COPY RT LASER RT STENT POSS BI RT CYSTO, URETEROSCOPY, LASER, BASKET EXTRAC Annual (SASH STICKER) SCREENING remote 3mos PPM f/u 1 Y [...] Check Remote August 25, 2024 4:22a m Chief Complaint Admit Date Pacer Check Remote May 26, 2024 4:21 am DYSPHAGIA July 01, 2024 12:57 pm DYSPHAGIA July 07, 2024 9:08a m 6 WK FU July 17, 2024 9:26a m E-ORDER July 17, 2024 10:09 am Pacer Check Remote August 25, 2024 4:22a m PAF, Generalized hyperhidrosis August 6:56am Adjust PVARP d/t PMT September 17, 2024 9:4 8am Reason for Visit Admit Date Globus sensation July 17, 2024 9:26a m Melena July 17, 2024 9:26a m Cough July 17, 2024 9:26a m Paroxysmal atrial fibrillation August 9:48am Symptomatic bradycardia September 17, 2024 9:48am History of permanent cardiac pacemaker p lacement September 17, 2024 9:48am Persistent atrial fibrillation August 9:48am Tachy-eric syndrome September 17, 2024 9:4 8am Chief Complaint Admit Date Pacer Check Remote May 26, 2024 4:21 am DYSPHAGIA July 01, 2024 12:57 pm DYSPHAGIA July 07, 2024 9:08a m 6 WK FU July 17, 2024 9:26a m E-ORDER July 17, 2024 10:09 am Pacer Check Remote August 25, 2024 4:22a m PAF, Generalized hyperhidrosis August 6:56am PAF September 12, 2024 7:17 am Adjust PVARP d/t PMT September 17, 2024 9:4 8am Chief Complaint Admit Date DYSPHAGIA July 01, 2024 12:57 pm DYSPHAGIA July 07, 2024 9:08a m 6 WK FU July 17, 2024 9:26a m E-ORDER July 17, 2024 10:09 am Pacer Check Remote August 25, 2024 4:22a m PAF, Generalized hyperhidrosis August 6:56am PAF September 12, 2024 7:17 am Adjust PVARP d/t PMT September 17, 2024 9:4 8am 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 September 9:57am 1 Y FU/GIA @ 10 September 30, 2024 10 :04am Reason for Visit Admit Date Globus sensation July 17, 2024 9:26a m Melena July 17, 2024 9:26a m Cough July 17, 2024 9:26a m Paroxysmal atrial fibrillation August 9:48am Symptomatic bradycardia September 17, 2024 9:48am History of permanent cardiac pacemaker p lacement September 17, 2024 9:48am Persistent atrial fibrillation August 9:48am Tachy-eric syndrome September 17, 2024 9:4 8am Paroxysmal atrial fibrillation September 302024 9:57am Symptomatic bradycardia September 30 9:57am History of permanent cardiac pacemaker p lacement September 30, 2024 9:57am Paroxysmal atrial fibrillation September 302024 10:04am Essential (primary) hypertension September 30, 2024 10:04am History of permanent cardiac pacemaker p lacement September 30, 2024 10:04am HLD (hyperlipidemia) September 30, 2024 1 0:04am Chief Complaint Admit Date DYSPHAGIA July 01, 2024 12:57 pm DYSPHAGIA July 07, 2024 9:08a m 6 WK FU July 17, 2024 9:26a m E-ORDER July 17, 2024 10:09 am Pacer Check Remote August 25, 2024 4:22a m PAF, Generalized hyperhidrosis August 6:56am PAF September 12, 2024 7:17 am Pacer Check Remote September 17, 2024 9:00 am Adjust PVARP d/t PMT September 17, 2024 9:4 8am Pacer Check Remote September 30, 2024 9: 00am 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 @ 10:September 9:57am 1 Y FU/GIA @ September 30, 2024 10 :04am Chief Complaint Admit Date DYSPHAGIA July 01, 2024 12:57 pm DYSPHAGIA July 07, 2024 9:08a m 6 WK FU July 17, 2024 9:26a m E-ORDER July 17, 2024 10:09 am Pacer Check Remote August 25, 2024 4:22a m PAF, Generalized hyperhidrosis August 6:56am PAF September 12, 2024 7:17 am Pacer Check Remote September 17, 2024 9:00 am Adjust PVARP d/t PMT September 17, 2024 9:4 8am Pacer Check Remote September 30, 2024 9: 00am 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 @ :30 September 9:57am 1 Y FU/GIA @ 10 September 30, 2024 10 :04am 3 M FU October 23, 2024 7:59am Chief Complaint Admit Date Pacer Check Remote August 25, 2024 4:22a m PAF, Generalized hyperhidrosis August 6:56am PAF September 12, 2024 7:17 am Pacer Check Remote September 17, 2024 9:00 am Adjust PVARP d/t PMT September 17, 2024 9:4 8am Pacer Check Remote September 30, 2024 9: 00am 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 September 9:57am 1 Y FU/GIA @ September 30, 2024 10 :04am 3 M FU October 23, 2024 7:59am PACER UPDATE W/ WaveCheck Septem 2024 3:48pm Reason for Visit Admit Date Paroxysmal atrial fibrillation August 9:48am Symptomatic bradycardia September 17, 2024 9:48am History of permanent cardiac pacemaker p lacement September 17, 2024 9:48am Persistent atrial fibrillation August 9:48am Tachy-eric syndrome September 17, 2024 9:4 8am Paroxysmal atrial fibrillation September 302024 9:57am Symptomatic bradycardia September 30 9:57am History of permanent cardiac pacemaker p lacement September 30, 2024 9:57am Paroxysmal atrial fibrillation September 302024 10:04am Essential (primary) hypertension September 30, 2024 10:04am History of permanent cardiac pacemaker p lacement September 30, 2024 10:04am HLD (hyperlipidemia) September 30, 2024 1 0:04am Change in bowel habit October 23 7:59am Paroxysmal atrial fibrillation November 10, 2024 3:48pm Symptomatic bradycardia November 10, 2024 3:48pm History of permanent cardiac pacemaker p lacement November 10, 2024 3:48pm Tachy-eric syndrome November 10 3:48pm Chief Complaint Admit Date Pacer Check Remote August 25, 2024 4:22a m PAF, Generalized hyperhidrosis August 6:56am PAF September 12, 2024 7:17 am Pacer Check Remote September 17, 2024 9:00 am Adjust PVARP d/t PMT September 17, 2024 9:4 8am Pacer Check Remote September 30, 2024 9: 00am 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 September 9:57am 1 Y FU/GIA @ 10 September 30, 2024 10 :04am 3 M FU October 23, 2024 7:59am PACER UPDATE W/ WaveCheck Septem supriya 2024 3:48pm Pacer Check Remote November 11, 2024 4:21am Pacer Check Remote November 12, 2024 9:00am Chief Complaint Admit Date Pacer Check Remote August 25, 2024 4:22a m PAF, Generalized hyperhidrosis August 6:56am PAF September 12, 2024 7:17 am Pacer Check Remote September 17, 2024 9:00 am Adjust PVARP d/t PMT September 17, 2024 9:4 8am Pacer Check Remote September 30, 2024 9: 00am 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 September 9:57am 1 Y FU/GIA @ 10 September 30, 2024 10 :04am 3 M FU October 23, 2024 7:59am PACER UPDATE W/ WaveCheck Septem 2024 3:48pm Pacer Check Remote November 11, 2024 4:21am Pacer Check Remote November 12, 2024 9:00am Pacer Check Remote November 24, 2024 4: 21am Additional Source Comments INFORMATION SOURCE (unrecogn ized section and content) DATE CREATED AUTHOR 03/25/2021 [facility] DATE CREATED AUTHOR AUTHOR'S ORGANIZ ATION 09/07/2023 [facility] DATE CREATED AUTHOR AUTHOR'S ORGANIZ ATION 12/17/2024 [facility] Goals (unrecognized section and content) Goals may [...] Care Provider, Referring Provider Active Sergio Abebe NP, REPORTING COORDINATOR-C Attending Provider Active Team Status: Inactive Member Role Status Dates Dr. Rui Rea MD Primary Care Provider, Referring Provider Active Anu Albright Attending Provider Active Team Status: Inactive Member Role Status Dates Dr. Rui Rea MD Primary Care Provider Active Dr. Reynaldo Thapa MD Attending Provider Active Dr. Tami Chung DPM Referring Provider Active Team Status: Inactive Member Role Status Dates Dr. uRi Rea MD Primary Care Provider Active Anu [...] Rea MD Referring Provider Active Ellen Wilson REPORTING COORDINATOR, REPORTING COORDINATOR-C Attending Provider Active Dr. Bria Spencer MD Primary Care Provider Active Team Status: Inactive Member Role Status Dates Dr. 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 Bria Spencer MD Primary Care Provider Active Start: July 07, 2024 End: July 07, 2024 Clarisse Walden REPORTING COORDINATOR-C Attending Provider Active Start: July 07, 2024 End: July 07, 2024 Clarisse Walden REPORTING COORDINATOR-C Referring Provider Active Start: July 07, 2024 End: July 07, 2024 Team Status: Inactive Member Role Status Dates Dr. Bria Spencer MD Primary Care Provider Active Start: July 17, 2024 End: July 17, 2024 Dr. Bria Spencer MD Referring Provider Active Start: July 17, 2024 End: July 17, 2024 Clarisse Walden REPORTING COORDINATOR-C Attending Provider Active Start: July 17, 2024 End: July 17, 2024 Team Status: Active Member Role Status Dates Dr. Bria Spencer MD Primary Care Provider Active Start: July 17, 2024 Clarisse Walden REPORTING COORDINATOR-C Attending Provider Active Start: July 17, 2024 Clarisse Walden REPORTING COORDINATOR-C Referring Provider Active Start: July 17, 2024 Team Status: Inactive Member Role Status Dates Dr. Bria Spencer MD Primary Care Provider Active Start: July 17, 2024 End: July 17, 2024 Clarisse Walden REPORTING COORDINATOR-C Attending Provider Active Start: July 17, 2024 End: July 17, 2024 Clarisse Walden REPORTING COORDINATOR-C Referring Provider Active Start: July 17, 2024 [...] 2024 End: July 01, 2024 Clarisse Walden REPORTING COORDINATOR-C Attending Provider Active Start: July 01, 2024 [...] 17, 2024 End: July 17, 2024 Clarisse Win , REPORTING COORDINATOR-C Attending Provider Active Start: July 17, 2024 [...] August 25, 2024 End: August 25, 2024 Team Status: Inactive Member Role/Relationship Status [...] July 01, 2024 End: July 01, 2024 CARMEN CaballeroC Attending Provider Active Start: July 01, 2024 [...] MD Primary Care Provider Active Start: August 19, 2024 Dr. Ninfa Mejia MD Attending Provider Active Start: August 19, 2024 Team Status: Inactive Member Role/Relationship Status Dates Dr. Bria Spencer MD Primary Care Provider Active Start: August 25, 2024 End: August 25, 2024 Dr. Reynaldo Thapa MD Attending Provider Active S tart: August 25, 2024 End: August 25, 2024 Dr. Reynaldo Thapa MD Referring Provider Active S tart: August 25, 2024 End: August 25, 2024 Team Status: Active Member Role/Relationship Status Dates Dr. Bria Spencer MD Primary Care Provider Active Start: September 12, 2024 GOLDEN Zhang Attending Provider Active St art: September 12, 2024 GOLDEN Zhang Referring Provider Active St art: September 12, 2024 Team Status: Inactive Member Role/Relationship Status Dates Dr. Bria Spencer MD Primary Care Provider Active Start: September 17, 2024 End: September 17, 2024 Dr. Bria Spencer MD Referring Provider Active Start: September 17, 2024 End: September 17, 2024 Anu Albright Attending Provider Active Start: 2024 End: September 17, 2024 Team Status: Inactive Member Role/Relationship Status Dates Dr. Bria Spencer MD Primary Care Provider Active Start: September 12, 2024 End: September 12, 2024 GODLEN Zhang Attending Provider Active St art: September 12, 2024 End: September 12, 2024 GOLDEN Zhang Referring Provider Active St art: September 12, 2024 End: September 12, 2024 Team Status: Active Member Role/Relationship Status Dates Dr. Bria Spencer MD Primary Care Provider Active Start: September 12, 2024 Dr. Reynaldo Thapa MD Attending Provider Active S tart: September 12, 2024 GOLDEN Zhang Referring Provider Active St art: September 12, 2024 Team Status: Inactive Member Role/Relationship Status Dates Dr. Bria Spencer MD Primary Care Provider Active Start: September 17, 2024 End: September 17, 2024 Dr. Bria Spencer MD Referring Provider Active Start: September 17, 2024 End: September 17, 2024 Anu Albright Attending Provider Active Start: 2024 End: September 17, 2024 Team Status: Inactive Member Role/Relationship Status Dates Dr. Bria Spencer MD Primary Care Provider Active Start: July 01, 2024 End: July 01, 2024 JALEN Caballero Attending Provider Active Start: July 01, 2024 End: July 01, 2024 JALEN Caballero Referring Provider Active Start: July 01, 2024 [...] MD Primary Care Provider Active Start: August 19, 2024 Dr. Ninfa Mejia MD Attending Provider Active Start: August 19, 2024 Team Status: Inactive Member Role/Relationship Status Dates Dr. Bria Spencer MD Primary Care Provider Active Start: August 25, 2024 End: August 25, 2024 Dr. Reynaldo Thapa MD Attending Provider Active S tart: August 25, 2024 End: August 25, 2024 Dr. Reynaldo Thapa MD Referring Provider Active S tart: August 25, 2024 End: August 25, 2024 Team Status: Inactive Member Role/Relationship Status Dates Dr. Bria Spencer MD Primary Care Provider Active Start: September 12, 2024 End: September 12, 2024 GOLDEN Zhang Attending Provider Active St art: September 12, 2024 End: September 12, 2024 GOLDEN Zhang Referring Provider Active St art: September 12, 2024 End: September 12, 2024 Team Status: Active Member Role/Relationship Status Dates Dr. Bria Spencer MD Primary Care Provider Active Start: September 12, 2024 Dr. Reynaldo Thapa MD Attending Provider Active S tart: September 12, 2024 GOLDEN Zhang Referring Provider Active St art: September 12, 2024 Team Status: Active Member Role/Relationship Status Dates Dr. Bria Spencer MD Primary Care Provider Active Start: September 30, 2024 Dr. Bria Spencer MD Referring Provider Active Start: September 30, 2024 Anu Albright Attending Provider Active Start: A 2024 Team Status: Inactive Member Role/Relationship Status Dates Dr. Bria Spencer MD Primary Care Provider Active Start: September 30, 2024 End: September 30, 2024 Dr. Bria Spencer MD Referring Provider Active Start: September 30, 2024 End: September 30, 2024 Dr. Reynaldo Thapa MD Attending Provider Active S tart: September 30, 2024 End: September 30, 2024 Team Status: Inactive Member Role/Relationship Status Dates Dr. Bria Spencer MD Primary Care Provider Active Start: September 30, 2024 End: September 30, 2024 Dr. Bria Spencer MD Referring Provider Active Start: September 30, 2024 End: September 30, 2024 Anu Albright Attending Provider Active Start: A ug2024 End: September 30, 2024 Team Status: Inactive Member Role/Relationship Status Dates Dr. Bria Spencer MD Primary Care Provider Active Start: September 17, 2024 End: September 17, 2024 Dr. Reynaldo Thapa MD Attending Provider Active S tart: September 17, 2024 End: September 17, 2024 Team Status: Inactive Member Role/Relationship Status Dates Dr. Bria Spencer MD Primary Care Provider Active Start: September 30, 2024 End: September 30, 2024 Dr. Reynaldo Thapa MD Attending Provider Active S tart: September 30, 2024 End: September 30, 2024 Team Status: Inactive Member Role/Relationship Status Dates Dr. Bria Spencer MD Primary Care Provider Active Start: September 30, 2024 End: September 30, 2024 Dr. Bria Spencer MD Referring Provider Active Start: September 30, 2024 End: September 30, 2024 Anu Albright Attending Provider Active Start: 2024 End: September 30, 2024 Team Status: Inactive Member Role/Relationship Status Dates Dr. Bria Spencer MD Primary Care Provider Active Start: September 30, 2024 End: September 30, 2024 Dr. Bria Spencer MD Referring Provider Active Start: September 30, 2024 End: September 30, 2024 Dr. Reynaldo Thapa MD Attending Provider Active S tart: September 30, 2024 End: September 30, 2024 Team Status: Inactive Member Role/Relationship Status Dates Dr. Bria Spencer MD Primary Care Provider Active Start: September 17, 2024 End: September 17, 2024 Dr. Reynaldo Thapa MD Attending Provider Active S tart: September 17, 2024 End: September 17, 2024 Dr. Reynaldo Thapa MD Referring Provider Active S tart: September 17, 2024 End: September 17, 2024 Team Status: Inactive Member Role/Relationship Status Dates Dr. Bria Spencer MD Primary Care Provider Active Start: October 09, 2024 End: October 09, 2024 Dr. Bria Spencer MD Attending Provider Active Start: October 09, 2024 End: October 09, 2024 Team Status: Inactive Member Role/Relationship Status Dates Dr. Bria Spencer MD Primary Care Provider Active Start: October 23, 2024 End: October 23, 2024 Dr. Bria Spencer MD Referring Provider Active Start: October 23, 2024 End: October 23, 2024 JALEN Caballero Attending Provider Active Start: October 23, 2024 End: October 23, 2024 Team Status: Active Member Role/Relationship Status Dates Dr. Bria Spencer MD Primary care physician Active Team Status: Inactive Member Role/Relationship Status Dates Dr. Bria Spencer MD Primary care physician Active Start: August 19, 2024 Dr. Ninfa Mejia MD Attending physician Active Start: August 19, 2024 Team Status: Inactive Member Role/Relationship Status Dates Dr. Bria Spencer MD Primary care physician Active Start: August 25, 2024 End: August 25, 2024 Dr. Reynaldo Thapa MD Attending physician Active Start: August 25, 2024 End: August 25, 2024 Dr. Reynaldo Thapa MD Referring Provider Active S tart: August 25, 2024 End: August 25, 2024 Team Status: Inactive Member Role/Relationship Status Dates Dr. Bria Spencer MD Primary care physician Active Start: September 12, 2024 End: September 12, 2024 GOLDEN Zhang Attending physician Active S tart: September 12, 2024 End: September 12, 2024 Estuardo Radha , PA Referring Provider Active St art: September 12, 2024 End: September 12, 2024 Team Status: Active Member Role/Relationship Status Dates Dr. Bria Spencer MD Primary care physician Active Start: September 12, 2024 Dr. Reynaldo Thapa MD Attending physician Active Start: September 12, 2024 Estuardo Garcia , [place] Referring Provider Active St art: September 12, 2024 Team Status: Inactive Member Role/Relationship Status Dates Dr. Bria Spencer MD Primary care physician Active Start: September 17, 2024 End: September 17, 2024 Dr. Reynaldo Thapa MD Attending physician Active Start: September 17, 2024 End: September 17, 2024 Team Status: Inactive Member Role/Relationship Status Dates Dr. Bria Spencer MD Primary care physician Active Start: September 17, 2024 End: September 17, 2024 Dr. Reynaldo Thapa MD Attending physician Active Start: September 17, 2024 End: September 17, 2024 Dr. Reynaldo Thapa MD Referring Provider Active S tart: September 17, 2024 End: September 17, 2024 Team Status: Inactive Member Role/Relationship Status Dates Dr. Bria Spencer MD Primary care physician Active Start: September 30, 2024 End: September 30, 2024 Dr. Reynaldo Thapa MD Attending physician Active Start: September 30, 2024 End: September 30, 2024 Team Status: Inactive Member Role/Relationship Status Dates Dr. Bria Spencer MD Primary care physician Active Start: September 30, 2024 End: September 30, 2024 Dr. Reynaldo Thapa MD Attending physician Active Start: September 30, 2024 End: September 30, 2024 Dr. Reynaldo Thapa MD Referring Provider Active S tart: September 30, 2024 End: September 30, 2024 Team Status: Inactive Member Role/Relationship Status Dates Dr. Bria Spencer MD Primary care physician Active Start: September 30, 2024 End: September 30, 2024 Dr. Bria Spencer MD Referring Provider Active Start: September 30, 2024 End: September 30, 2024 Dr. Reynaldo Thapa MD Attending physician Active Start: September 30, 2024 End: September 30, 2024 Team Status: Inactive Member Role/Relationship Status Dates Dr. Bria Spencer MD Primary care physician Active Start: October 09, 2024 End: October 09, 2024 Dr. Bria Spencer MD Attending physician Active Start: October 09, 2024 End: October 09, 2024 Team Status: Inactive Member Role/Relationship Status Dates Dr. Bria Spencer MD Primary care physician Active Start: October 23, 2024 End: October 23, 2024 Dr. Bria Spencer MD Referring Provider Active Start: October 23, 2024 End: October 23, 2024 JALEN Caballero Attending physician Active Start: October 23, 2024 End: October 23, 2024 Team Status: Inactive Member Role/Relationship Status Dates Dr. Bria Spencer MD Primary care physician Active Start: November 10, 2024 End: November 10, 2024 Dr. Bria Spencer MD Referring Provider Active Start: November 10, 2024 End: November 10, 2024 Anu Albright Attending physician Active Start: November 10, 2024 End: November 10, 2024 Team Status: Inactive Member Role/Relationship Status Dates Dr. Bria Spencer MD Primary care physician Active Start: November 11, 2024 End: November 11, 2024 Dr. Reynaldo Thapa MD Attending physician Active Start: November 11, 2024 End: November 11, 2024 Team Status: Inactive Member Role/Relationship Status Dates Dr. Bria Spencer MD Primary care physician Active Start: November 12, 2024 End: November 12, 2024 Dr. Reynaldo Thapa MD Attending physician Active Start: November 12, 2024 End: November 12, 2024 Team Status: Inactive Member Role/Relationship Status Dates Dr. Bria Spencer MD Primary care physician Active Start: November 24, 2024 End: November 24, 2024 Dr. Reynaldo Thapa MD Attending physician Active Start: November 24, 2024 End: November 24, 2024 Source Comments (unrecognize d section and content) In the event this informatio n is protected by the Federal Confidentiality of Alcohol and Drug Abuse Patient Records regulations: The Federal rules restrict any use of the information to criminally investigate or prosecute any alcohol or drug abuse patient.[facility] the event this information is protected by the Federal Confidentiality of Alcohol and Drug Abuse Patient Records regulations: The Federal rules restrict any use of the information to criminally investigate or prosecute any alcohol or drug abuse patient.[facility] Reason for Visit (unrecogniz ed section [...] BE BASED ON THE PRIMARY CLINICAL RECORDS. [facility] [employer] [facility]. provides no warranty or guarantee of the accuracy or completeness of information in this document.
--- NOTE | 2025-02-16 21:40 | RAD_ITS ---
PROCEDURE: CHEST 1 VIEW (PORTABLE) 02/16/2025 REASON FOR EXAM: COUGH TECHNIQUE: Frontal view of the chest. COMPARISON: 09/10/2023 FINDINGS: Devices: Left chest wall dual lead ICD in stable positioning. Lungs/Pleura: No focal consolidation, pneumothorax or pleural effusion. Heart/Mediastinum: Mildly enlarged. Mild aortic arch calcification. Bones/Soft tissues: Mild degenerative changes of the spine. RAD/Chest 1 View (Portable) IMPRESSION: No evidence of acute cardiopulmonary disease. Reading Location: [id number]
--- NOTE | 2025-02-16 21:54 | EDS_ITS ---
HPI History of Present Illness Chief Complaint: Shortness of Breath Informant: patient and EMS Narrative Narrative: 79-year-old female presenting to the emergency room shortness of breath. Patient states she recently got over influenza. She states that she was then diagnosed with COVID-19. That was 3 weeks ago. Patient states that she continues to have cough. Today she was coughing and coughing and got very short of breath. She felt like something bad was going to happen. Patient states she feels twinges in her chest like her pacemaker is going off. She has been taking her Xarelto. She denies any fevers. No vomiting diarrhea. Patient states that she is due for her nighttime dose of metoprolol as well as her Xarelto. Last echocardiogram was August 2023 showed ejection fraction 45%. She does carry a history of CHF. [facility] Medical History Right renal stone Cataracts, bilateral Wears glasses Wears dentures History of echocardiogram Ambulates with cane Arthritis History of hiatal hernia History of diverticulitis Non-smoker CPAP (continuous positive airway pressure) dependence Sleep apnea Cardiology follow-up encounter History of stress test History of atrial fibrillation Atrial fibrillation Pacemaker Symptomatic bradycardia Essential (primary) hypertension Fecal incontinence Cystocele with rectocele Atrophic vaginitis Lichen sclerosus Hypokalemia Back problem Dysphagia Depression Anxiety HLD (hyperlipidemia) IRON (obstructive sleep apnea) Family history of diabetes mellitus Family history of cardiovascular disease History of detached retina repair Home Medications ?Medication ?Instructions ?Recorded ?Last Taken ?Type sitagliptin phosphate 25 mg tablet 25 mg PO DAILY 11/1206/11/23 History (Januvia) rivaroxaban 20 mg tablet (Xarelto) 20 mg PO .COMPLEX # 90 tabs 08/13/24 Unknown Rx diltiazem HCl 120 mg 120 mg PO QAM #90 caps 09/22 Unknown Rx capsule,extended release 24 hr (Cardizem CD) cholecalciferol (vitamin D3) 25 5,000 unit PO QDAY sup plement 09/30/24 Unknown History mcg (1,000 unit) tablet furosemide 40 mg tablet 40 mg PO QDAY 09/30/24 Unkno wn History psyllium husk 0.4 gram capsule 0.4 g PO QDAY 10/23/24 Unknown History (Metamucil) metoprolol tartrate 100 mg tablet 100 mg PO BID #180 T ABLETS 12/15/24 Unknown Rx citalopram 20 mg tablet 20 mg PO DAILY 02/16/25 Unkn own History magnesium 200 mg tablet 250 mg PO DAILY 02/16/25 Unk nown History Allergy/AdvReac Type Severity Reaction Status Date / Time dapagliflozin (From Farxiga) Allergy Severe Nausea/Vom/ Verified 02/16/25 21:11 Diarrhea codeine Allergy Intermediate PT UNSURE Verified 02/16/25 21:11 OF REACTION meloxicam (From Mobic) Allergy Intermediate PT UNSURE Verified 02/16/25 21:11 OF REACTION nitrofurantoin Allergy Intermediate PT UNSURE Verified 02/16/25 21:11 OF REACTION Penicillins Allergy Intermediate PT UNSURE Verified 02/16/25 21:11 OF REACTION sulfamethoxazole (From Allergy Intermediate PT UNSURE Verified 02/16/25 21:11 Bactrim) OF REACTION trimethoprim (From Bactrim) Allergy Intermediate PT UNSURE Verified 02/16/25 21:11 OF REACTION sulfacetamide Allergy Unknown Pt does Verified 02/16/25 21:11 not recall vibegron (From Gemtesa) Allergy Unknown Unknown Verified 02/16/25 21:11 metformin AdvReac PT UNSURE Verified 02/16/25 21:11 OF REACTION Family History Father Cancer Prostate cancer Mother Myocardial infarction Arthritis Sister Breast cancer Brother Diabetes CHF (congestive heart failure) Myocardial infarction Son Diabetes Other Family history of cardiovascular disease Family history of diabetes mellitus Surgical History History of esophagogastroduodenoscopy (EGD) History of colonoscopy (~05/2023) Hx of parathyroidectomy History of cystoscopy History of permanent cardiac pacemaker placement (01/17/21) History of cardioversion (07/21/19) History of left heart catheterization (07/29/08) History of cholecystectomy (1977) History of tubal ligation (1981) Social History Smoking Status: Never smoker alcohol intake: never substance use type: does not use caffeine: No what type of physical activity do you participate in: walking frequency: 5-6 times per week seatbelt use: always do you feel safe at home: Yes additional social history: - retired ROS ROS ED Constitutional Constitutional ED: Denies chills, fever(s) or weight loss Eyes Eyes: Denies change in vision or diplopia ENT ENT ED: Denies ear pain, rhinorrhea or sore throat Cardiovascular Cardiovascular: Reports chest pain and palpitations; Denies orthopnea or racing heartbeat Respiratory/Chest Respiratory/Chest: Reports cough, dyspnea and sputum; Denies orthopnea Gastrointestinal Gastrointestinal: Denies abdominal pain, diarrhea, nausea or vomiting Genitourinary Genitourinary ED: Denies dysuria, hematuria or urinary frequency Musculoskeletal Musculoskeletal: Denies arthralgias or myalgias Integumentary Denies abscess or rash Neurologic Neurologic: Denies headache(s) or weakness Psychiatric Psychiatric: Denies anxiety, depression, suicidal ideation or suicidal thoughts Endocrine Endocrinology: Denies polydipsia, polyphagia or polyuria Allergic/Immunologic Allergic/Immunologic ED: Denies mouth swelling, tongue swelling or urticaria EXAM Physical Exam Const Vital Signs: 02/16/25 21:11 02/16/25 21:14 02/16/25 22:15 Temperature 97.6 F L 97.6 F L 97.6 F L Temperature Source Oral Oral Oral Pulse Rate 97 96 104 H Respiratory Rate 22 H 22 H 21 H Respiratory Effort Respiratory Pattern Blood Pressure 133/88 H 133/88 H 126/80 H Blood Pressure Mean 103 103 95 Pulse Ox 94 94 92 Oxygen Delivery Method Room Air Room Air Room Air Oxygen Flow Rate (L/min) 02/16/25 23:00 02/16/25 23:19 02/17/25 00:00 Temperature 97.7 F L 97.7 F L Temperature Source Oral Oral Pulse Rate 94 97 Respiratory Rate 23 H 22 H Respiratory Effort Short of Breath Respiratory Pattern Tachypnea Blood Pressure 132/58 H 116/72 Blood Pressure Mean 82 86 Pulse Ox 95 92 Oxygen Delivery Method Room Air Room Air Nasal Cannula Oxygen Flow Rate (L/min) 2 Positive well nourished and well developed General Appearance ED: well developed and NAD HEENT Reports normocephalic, head/scalp atraumatic and moist mucous membranes Eyes PERRL and EOMs intact bilaterally Neck no lymphadenopathy, supple and no JVD Resp normal respiratory effort and clear to auscultation bilaterally Resp Narrative: Moist rhonchorous cough Cardio no murmurs Rate: tachycardic Rhythm: abnormal rhythm irregularly irregular GI normal to inspection, nondistended, normoactive bowel sounds and non-tender Palpation: soft Back/Spine no CVA tenderness and normal ROM Extremity normal to inspection General Extremety ED: Negative for edema General Extremity: Negative for edema Neuro oriented x3 and CN's II-XII intact bilaterally Sensorium / Orientation: alert Motor Exam: strength 5/5 throughout Psych mental status grossly normal Mood & Affect: Negative for depressed or tearful Skin no rashes or lesions noted and no wounds MDM MDM MDM Narrative Medical decision making narrative: Differential diagnosis includes but not limited to cardiac dysrhythmia acute coronary syndrome pulmonary embolism aortic dissection congestive heart failure pneumonia bronchitis pleural effusion Patient's EKG is atrial fibrillation at a rate of 96 bpm. My independent interpretation of the chest x-ray is no acute process. White count 16.9 platelet count 314 hemoglobin 13.4. 2 sets of cardiac enzymes are 13 and 12. BNP is elevated 1903. Glucose 159. As the patient's ED course progressed the patient became hypoxic at 88%. She was placed on nasal cannula. We administered metoprolol as well as Xarelto at her to her nighttime dose. I also gave her a dose of Lasix. I doubt pulmonary embolism at this time as she has been consistent with her Xarelto. She does have a history of CHF. I will speak with the hospitalist regarding admission History & Record Review Discussion w/independent historian: EMS personnel and Patient Additional record(s) reviewed:: Prior outpatient record, Prior ED visit and Prior labs Lab Data Attestation: I reviewed the patient's lab results. Labs: Laboratory Results - last 24 hr 02/16/25 02/16/25 21:35 23:22 WBC 16.9 H RBC 4.49 Hgb 13.4 Hct 40.9 MCV 91.1 MCH 29.8 MCHC 32.8 RDW Std Deviation 45.8 H RDW Coeff of Inderjit 13.7 Plt Count 314 MPV 9.3 Immature Gran % (Auto) 1.400 H Neut % (Auto) 83.3 H Lymph % (Auto) 8.1 L Harlan % (Auto) 4.7 Eos % (Auto) 2.1 Baso % (Auto) 0.4 Absolute Neuts (auto) 14.1 H Absolute Lymphs (auto) 1.37 Nucleated RBC % 0 Sodium 138 Potassium 4.1 Chloride 102 Carbon Dioxide 28.1 Anion Gap 8 BUN 9 Creatinine 0.95 Estim Creat Clear Calc 53.05 Est GFR (MDRD) Non-Af 62 BUN/Creatinine Ratio 9.4 L Glucose 159 H Calcium 8.9 Troponin T High Sens 13 Troponin T Hi Sens 2 Hr 12 NT pro BNP II 1903 H Radiography Diagnostic Testing: Clinical Impression(s) from Imaging Studies Chest X-Ray 02/16/25 21:40 IMPRESSION: No evidence of acute cardiopulmonary disease. Reading Location: [facility] EKG Initial EKG: Attestation: I personally reviewed and interpreted this EKG as follows: Comments: Atrial fibrillation ventricular rate of 96 bpm. Management Discussion w/another healthcare provider: Hospitalist Discharge Plan Dx/Rx/DC Orders Clinical Impression: CHF (congestive heart failure), Hypoxia Disposition Disposition: Acute Care Hospital [facility]
[2025-02-16 22:09] LABS: Hematocrit 40.9 % (37-47); Hemoglobin 13.4 g/dL (12.0-15.0); Immature Granulocytes Count 0.230 X10^3/uL (0.0-0.0); Mean Corp Hgb Conc 32.8 g/dL (32-36); Mean Corpuscular Volume 91.1 fL (81-99); Mean Platelet Vol. 9.3 fl (6.2-12.0); NRBC Flagged by Analyzer 0 % (0-5); Platelet Count 314 K/mm3 (150-450); RBC Distribution Width CV 13.7 % (11.6-14.6); RBC Distribution Width SD 45.8 fl (35.1-43.9); Red Blood Count 4.49 M/mm3 (4.2-5.4); White Blood Count 16.9 K/mm3 (4.4-11.0)
[2025-02-16 22:15] VITALS: BP 126/80; PULSE 104; RESP 21; TEMP 36.4; O2SAT 92
[2025-02-16 22:15] LABS: Anion Gap 8 (7-18); BUN 9 mg/dL (4-19); BUN/Creat Ratio 9.4 RATIO (10-20); Calcium,Total 8.9 mg/dL (7.6-11.0); Carbon Dioxide 28.1 mmol/L (20.0-29.0); Chloride 102 mmol/L (96-106); Estimated Creatinine Clearance 53.05 ml/min (50-250); Glucose 159 mg/dL (70-99); Potassium 4.1 mmol/L (3.5-5.1); Pro- Brain NATRIURETIC PEPTIDE 1903 pg/mL (<=1800); Troponin T High Sensitivity 13 ng/L (<=14)
[2025-02-16 23:00] VITALS: BP 132/58; PULSE 94; RESP 23; TEMP 36.5; O2SAT 95
[2025-02-16 23:19] VITALS: O2SAT 95
[2025-02-16 23:55] LABS: Troponin T High Sens 2 HR 12 ng/L (<=14)
[2025-02-17] VITALS (13 sets, daily range): BP systolic 94–128; BP diastolic 57–99; PULSE 64–113; RESP 18–22; TEMP 36.1–36.5; O2SAT 92–99; BMI 32.5; BMI 32.3
--- NOTE | 2025-02-17 00:27 | PCM.HP.STD ---
HPI - General General Date of Admission: 02/17/25 Date of Service: 02/17/25 Chief Complaint: Shortness of breath and cough HPI Narrative SAVANNA MCDONOUGH, is a 79 F who presented to [facility] ED on 02/17/2025 with shortness of breath and cough. Medical history significant for mild chronic HFrEF, paroxysmal A-fib on Xarelto, tachybradycardia syndrome s/p pacemaker placement, and hypertension. Patient states she recently had both the flu and COVID a few weeks ago. She has had a lingering cough since then and has become more short of breath with exertion, so she came in for further evaluation. Chest x-ray was unremarkable. However, patient was satting in the low to mid 90s on room air at rest and dropped to the mid 80s on room air with exertion. She was in A-fib with RVR on arrival to the ED with rate in the 110s to 120s; improved to the 90s to 100s with home p.o. Lopressor. BNP 1903. Given CHF exacerbation and hypoxia with exertion, hospitalist was contacted for admission. I saw the patient at bedside in the ED. Patient was fatigued appearing but otherwise sitting back fairly comfortably in bed, conversing normally, in no acute distress. She denies any lower extremity swelling. Has been taking her home medications as prescribed including the Xarelto. Denies any fevers or chills. No other acute concerns currently. Will be admitted for further management. [facility] Medical History Right renal stone Cataracts, bilateral Wears glasses Wears dentures History of echocardiogram Ambulates with cane Arthritis History of hiatal hernia History of diverticulitis Non-smoker CPAP (continuous positive airway pressure) dependence Sleep apnea Cardiology follow-up encounter History of stress test History of atrial fibrillation Atrial fibrillation Pacemaker Symptomatic bradycardia Essential (primary) hypertension Fecal incontinence Cystocele with rectocele Atrophic vaginitis Lichen sclerosus Hypokalemia Back problem Dysphagia Depression Anxiety HLD (hyperlipidemia) IRON (obstructive sleep apnea) Family history of diabetes mellitus Family history of cardiovascular disease History of detached retina repair Home Medications ?Medication ?Instructions ?Recorded ?Last Taken ?Type sitagliptin phosphate 25 mg tablet 25 mg PO DAILY 02/27/23 06/11/23 History (Januvia) rivaroxaban 20 mg tablet (Xarelto) 20 mg PO .COMPLEX #90 tabs 08/13/24 Unknown Rx diltiazem HCl 120 mg 120 mg PO QAM #90 caps 09/22/24 Unknown Rx capsule,extended release 24 hr (Cardizem CD) cholecalciferol (vitamin D3) 25 5,000 unit PO QDAY supplement 09/30/24 Unknown History mcg (1,000 unit) tablet furosemide 40 mg tablet 40 mg PO QDAY 09/30/24 Unknown History psyllium husk 0.4 gram capsule 0.4 g PO QDAY 10/23/24 Unknown History (Metamucil) metoprolol tartrate 100 mg tablet 100 mg PO BID #180 TABLETS 12/15/24 Unknown Rx citalopram 20 mg tablet 20 mg PO DAILY 02/16/25 Unknown History magnesium 200 mg tablet 250 mg PO DAILY 02/16/25 Unknown History Allergy/AdvReac Type Severity Reaction Status Date / Time dapagliflozin (From [facility]) Allergy Severe Nausea/Vom/ Verified 02/16/25 21:11 Diarrhea codeine Allergy Intermediate PT UNSURE Verified 02/16/25 21:11 OF REACTION meloxicam (From Mobic) Allergy Intermediate PT UNSURE Verified 02/16/25 21:11 OF REACTION nitrofurantoin Allergy Intermediate PT UNSURE Verified 02/16/25 21:11 OF REACTION Penicillins Allergy Intermediate PT UNSURE Verified 02/16/25 21:11 OF REACTION sulfamethoxazole (From Allergy Intermediate PT UNSURE Verified 02/16/25 21:11 Bactrim) OF REACTION trimethoprim (From Bactrim) Allergy Intermediate PT UNSURE Verified 02/16/25 21:11 OF REACTION sulfacetamide Allergy Unknown Pt does Verified 02/16/25 21:11 not recall vibegron (From Gemtesa) Allergy Unknown Unknown Verified 02/16/25 21:11 metformin AdvReac PT UNSURE Verified 02/16/25 21:11 OF REACTION Family History Father Cancer Prostate cancer Mother Myocardial infarction Arthritis Sister Breast cancer Brother Diabetes CHF (congestive heart failure) Myocardial infarction Son Diabetes Other Family history of cardiovascular disease Family history of diabetes mellitus Surgical History History of esophagogastroduodenoscopy (EGD) History of colonoscopy (~05/2023) Hx of parathyroidectomy History of cystoscopy History of permanent cardiac pacemaker placement (01/17/21) History of cardioversion (07/21/19) History of left heart catheterization (07/29/08) History of cholecystectomy (1977) History of tubal ligation (1981) Social History Smoking Status: Never smoker alcohol intake: never substance use type: does not use caffeine: No what type of physical activity do you participate in: walking frequency: 5-6 times per week seatbelt use: always do you feel safe at home: Yes additional social history: - retired ROS Constitutional Constitutional: Reports fatigue; Denies chills, fever(s) or weakness Cardiovascular Cardiovascular: Reports dyspnea on exertion; Denies chest pain, edema, lightheadedness, orthopnea or palpitations Respiratory/Chest Respiratory/Chest: Reports cough; Denies productive cough, shortness of breath at rest or wheezing Gastrointestinal Gastrointestinal: Denies abdominal pain Musculoskeletal Musculoskeletal: Denies arthralgias or myalgias Neurologic Neurologic: Denies dizziness, focal weakness or headache(s) Patient's Goals Of Care . What matters most to you about your health?: Good quality of life, feeling well What would you like to achieve or improve as a result of your hospital stay?: Feel better, improvement in shortness of breath Vital Signs Vital Signs Vital Signs: 02/16/25 21:11 02/16/25 21:14 02/16/25 22:15 Temperature 97.6 F L 97.6 F L 97.6 F L Temperature Source Oral Oral Oral Pulse Rate 97 96 104 H Respiratory Rate 22 H 22 H 21 H Respiratory Effort Respiratory Pattern Blood Pressure 133/88 H 133/88 H 126/80 H Blood Pressure Mean 103 103 95 Pulse Ox 94 94 92 Oxygen Delivery Method Room Air Room Air Room Air Oxygen Flow Rate (L/min) 02/16/25 23:00 02/16/25 23:19 02/17/25 00:00 Temperature 97.7 F L 97.7 F L Temperature Source Oral Oral Pulse Rate 94 97 Respiratory Rate 23 H 22 H Respiratory Effort Short of Breath Respiratory Pattern Tachypnea Blood Pressure 132/58 H 116/72 Blood Pressure Mean 82 86 Pulse Ox 95 92 Oxygen Delivery Method Room Air Room Air Nasal Cannula Oxygen Flow Rate (L/min) 2 Weight Weight: 90.8 kg Body Mass Index (BMI) 35.4 Physical Exam Const alert, oriented x3 and no apparent distress Constitutional Narrative: Elderly female, class I obesity, mildly fatigued appearing, otherwise sitting back comfortably in bed, conversing normally, in no acute distress. General Appearance: cooperative and comfortable HEENT normocephalic, head/scalp atraumatic, hearing grossly normal bilaterally, nasal mucous membranes and turbinates normal and moist oral mucous membranes Eyes PERRL, EOMs intact bilaterally and conjunctivae normal Neck full ROM Chest inspection of chest normal Resp normal respiratory effort and no use of accessory muscles Resp Narrative: Breathing comfortably on 2 L nasal cannula at rest. Mildly diminished breath sounds in bilateral lung bases, otherwise good air movement throughout with no wheezing noted. Cardio no murmurs and peripheral pulses 2+ throughout Cardio Narrative: A-fib, rate controlled. GI normal to inspection, nondistended, normoactive bowel sounds, soft to palpation, non-tender and non-distended Back/Spine normal ROM Extremity normal to inspection, full ROM and no pedal edema Skin no rashes or lesions noted Psych mental status grossly normal Results Lab / Micro Data 02/16/25 21:35 02/16/25 21:35 Labs: Laboratory Results - last 24 hr 02/16/25 21:35: WBC 16.9 H, RBC 4.49, Hgb 13.4, Hct 40.9, MCV 91.1, MCH 29.8, MCHC 32.8, RDW Std Deviation 45.8 H, RDW Coeff of Inderjit 13.7, Plt Count 314, MPV 9.3, Immature Gran % (Auto) 1.400 H, Neut % (Auto) 83.3 H, Lymph % (Auto) 8.1 L, [place] % (Auto) 4.7, Eos % (Auto) 2.1, Baso % (Auto) 0.4, Absolute Neuts (auto) 14.1 H, Absolute Lymphs (auto) 1.37, Nucleated RBC % 0, Sodium 138, Potassium 4.1, Chloride 102, Carbon Dioxide 28.1, Anion Gap 8, BUN 9, Creatinine 0.95, Estim Creat Clear Calc 53.05, Est GFR (MDRD) Non-Af 62, BUN/Creatinine Ratio 9.4 L, Glucose 159 H, Calcium 8.9, Troponin T High Sens 13, NT pro BNP II 1903 H 02/16/25 23:22: Troponin T Hi Sens 2 Hr 12 Imaging Radiology Impression Chest X-Ray 02/16/25 21:40 IMPRESSION: No evidence of acute cardiopulmonary disease. Reading Location: [id number] Assessment & Plan Assessment/Plan (1) CHF exacerbation: PLAN: Plan Patient is a 79-year-old female who presented to [facility] ED on 02/17/2025 with shortness of breath and cough. 1. Acute on chronic HFrEF exacerbation with hypoxia on exertion ? Admit under inpatient status to PCU. Not on home oxygen, was hypoxic to the mid 80s on room air with exertion. BNP 1903. Chest x-ray with no significant volume overload. Last echo in 08/2023 with EF 45%, moderately enlarged LA and RA, no other concerning findings. Repeat echo ordered. Will treat with IV Lasix 40 mg twice daily for now, monitor daily BMP and urine output. Wean supplemental oxygen as able. 2. Paroxysmal A-fib with RVR, hypertension, history of tachybradycardia syndrome s/p pacemaker placement ? Follows with [place] cardiology. In A-fib with RVR with rate to the 110s to 120s on admit, improved with dose of home p.o. Lopressor. Continue home Lopressor, diltiazem and Xarelto. 3. Leukocytosis ? WBC count 16 on admit. Reports recent flu and COVID infections. She is afebrile and chest x-ray is negative so will hold on testing for flu and COVID at this time. No other infectious symptoms noted; no need for antibiotics at this point. Follow-up a.m. CBC. 4. Anxiety/depression ? Stable. Continue home citalopram. 5. Type 2 diabetes mellitus ? A1c 6.4% on admit. Glucose 159. Will treat with sliding scale insulin with meals while inpatient, adjust as needed. Hold home sitagliptin. DVT prophylaxis: Not indicated, on Xarelto CODE STATUS: Full code, verified Expected disposition: Home, D Total clinical time spent by myself addressing the patient's medical issues, reviewing all the data, and collaborating with patient's care team: 76 minutes. Charges/Coding Visit Charges Inpatient E&M: 47615 Init Hosp L3
--- NOTE | 2025-02-17 00:33 | ECHOCS_ITS ---
Reason For Study Reason For Study: CHF Procedure This was a 2D Doppler, Color Flow transthoracic echocardiogram. The study was technically difficult. Contrast injection was performed. Exam performed portable in patient room. Left Ventricle Normal-size left ventricle. Left ventricular EF by Copeland's biplane: 63%. Diastolic dysfunction grade indeterminate in the setting of arrhythmia. No regional wall motion abnormalities noted. Right Ventricle Normal right ventricle. Normal systolic function. RVSP estimated at: 35 mmHg. Atria Moderate biatrial dilation. Mitral Valve Normal mitral valve. No mitral regurgitation. No mitral stenosis. Tricuspid Valve Normal tricuspid valve. Mild tricuspid regurgitation. No tricuspid stenosis. Aortic Valve Trileaflet aortic valve. Mild aortic regurgitation. No hemodynamically significant aortic stenosis. Pulmonic Valve Normal pulmonic valve. Trace pulmonic regurgitation. No pulmonic stenosis. Great Vessels Normal sized aortic root. Normal ascending aorta. Pericardium/Pleural No pericardial effusion. Epicardial fat. Medication Diluted definity 2ml given slow IV push to enhance endocardial definition. MMode/2D Measurements & Calculations LVIDd: 4.8 cm IVSd: 1.0 cm asc Aorta Diam: 3.2 cm LVIDs: 2.6 cm LVPWd: 1.1 cm RVDd: 3.4 cm FS: 44.5 % LAV(MOD-bp): 57.8 ml LVAd ap4: 25.5 cm2 LVAd ap2: 24.6 cm2 LAV(MOD-bp) Indexed: 30.6 ml/m2 LVLd ap4: 6.5 cm LVLd ap2: 7.0 cm LAV(MOD-sp2): 67.5 ml EDV(MOD-sp4): 82.5 ml EDV(MOD-sp2): 72.9 ml LAV(MOD-sp4): 45.6 ml EDV(sp4-el): 84.1 ml EDV(sp2-el): 74.1 ml LVAs ap4: 14.2 cm2 LVAs ap2: 12.8 cm2 LVLs ap4: 5.7 cm LVLs ap2: 5.9 cm ESV(MOD-sp4): 30.5 ml ESV(MOD-sp2): 23.1 ml ESV(sp4-el): 30.1 ml ESV(sp2-el): 23.6 ml EF(MOD-sp4): 63.0 % EF(MOD-sp2): 68.3 % EF(sp4-el): 64.2 % SV(MOD-sp4): 52.0 ml SV(MOD-sp2): 49.8 ml EDV(MOD-bp): 79.9 ml SI(MOD-sp4): 27.5 ml/m2 SI(MOD-sp2): 26.4 ml/m2 ESV(MOD-bp): 26.6 ml EF(MOD-bp): 66.8 % SV(sp4-el): 54.0 ml LA A4 area: 19.5 cm2 LA dimension(2D): 3.2 cm RA A4 area: 19.8 cm2 TAPSE: 2.2 cm Time Measurements MV dec time: 0.11 sec Doppler Measurements & Calculations MV E max richard: 105.7 cm/sec Ao V2 max: 112.7 cm/sec LV V1 max: 105.1 cm/sec Ao max P.1 mmHg LV V1 max P.4 mmHg Ao V2 mean: 75.4 cm/sec LV V1 mean P.0 mmHg Ao mean P.6 mmHg LV V1 mean: 67.9 cm/sec Ao V2 VTI: 15.9 cm LV V1 VTI: 16.9 cm AV (velocity ratio): 1.1 PA V2 max: 74.3 cm/sec PI end-d richard: 104.3 cm/sec TR max richard: 267.6 cm/sec TR max P.6 mmHg ECHO/Echo Complete W/ Contrast Interpretation Summary Rhythm on examination consistent with atrial fibrillation. Normal left ventricular systolic function, with EF by Copeland's biplane: 63% Diastolic dysfunction grade indeterminate in the setting of arrhythmia Normal right ventricular systolic function Moderate biatrial dilation Mild aortic regurgitation Recommend routine echocardiographic surveillance of aortic regurgitation in 3 y ears. Ordering Physician: Pastor Llamas Referring Physician: Bria Spencer Performed By: Annie Deng RDCS
--- NOTE | 2025-02-17 00:49 | ED.RN ---
Pt daughter Sindhu called, per pt, and updated on pt being admitted. No further questions at this time.
--- OUTSIDE RECORDS SUMMARY | 2025-02-17 01:16 | XMS RPT_ITS | CCD ---
Author Organization [facility] CliniSyme Care Team Providers Care Mold Yard Worker Name Role Phone Nellie Topete Unavailable Unavailable Nellie Topete Unavailable Unavailable SHARON Baltazar, Abigail Christine Unavailable Unavailabl Marta Wiggins Unavailable Unavailable Marta Urrutia Unavailable Unavailable Nellie Topete Unavailable Unavailable Dr. Rui Rea Primary Care Provider Dr. Rui Rea Referring Provider Dr. Reynaldo Thapa Attending Provider [phone] Anu Albright Attending Provider Unavailable Heavener EMBEDDER, EMBEDDER-Trudy Hughes Attending Provider [phone] Dr. Reynaldo Thapa Referring Provider GOLDEN Robles Attending Provider [phone] Dr. Rui Rea Primary Care Provider Dr. Rui Rea Referring Provider Andrae EMBEDDER, CAROL-Trudy Larsen Attending Provider Anu Albright Attending Provider Unavailable Dr. Rui Rea Primary Care Provider Dr. Rui Rea Referring Provider Dr. Reynaldo Thapa Attending Provider Dr. Reynaldo Thapa Referring Provider Dr. Riu Rea Primary Care Provider Dr. Reynaldo Thapa Attending Provider Dr. Tami Chung Referring Provider Dr. Rui Rea Referring Provider Anu Albright Attending Provider Unavailable Dr. Reynaldo Thapa Referring Provider Dr. Rui Rea Referring Provider Roof EMBEDDER, EMBEDDER-C Sergio Larsen Attending Provider Anu Albright Attending Provider Unavailable Dr. Rui Rea Primary Care Provider Dr. Rui Rea Referring Provider Roof EMBEDDER, EMBEDDER-C Sergio Larsen Attending Provider Anu Albright Attending Provider Unavailable Dr. Reynaldo Thapa Attending Provider Dr. Reynaldo Thapa Referring Provider [phone] Rui Rea Referring Provider Steve EMBEDDER, EMBEDDER-Trudy Hughes Attending Provider Dr. Bria Spencer Primary [...] Spencer MD Referring Provider [phone] Win EMBEDDER-CClarisse Attending Provider Dr. Reynaldo Thapa MD Attending Provider [phone] Clarisse Sethi Referring Provider Dr. Bria Spencer MD Primary Care Provider Dr. Bria Spencer MD Referring Provider [phone] Brai Spencer MD Attending Provider [phone] Bria Spencer MD Primary Care Provider Win EMBEDDER-CClarisse Attending Provider Dr. Bria Spencer MD Referring Provider [phone] Dr. Ninfa Mejia MD Attending Provider [phone] Elier HURT, Dr. Jacobs Referring Provider [phone] Estuardo Brown Attending Provider [phone] Esturado Brown Referring Provider [phone] Anu Albright Attending Provider Unavailable Dr. Bria Spencer MD Primary Care Provider Jackie HURT, Dr. Ocasio Attending Provider Elier HURT, Dr. Jacobs Attending Provider Anu Albright Attending Provider Unavailable Dr. Bria Spencer MD Primary Care Physician Jackie HURT, Dr. Ocasio Attending Physician Elier HURT, Dr. Jacobs Attending Physician [phone] Estuardo Brown Attending Physician Dr. Bria Spencer MD Referring Provider Johanna HURT, Dr. Fraser Attending Physician Win EMBEDDER-CClarisse Attending Physician Anu Alrbight Attending Physician Unavailable Miedel, Bria Referring Unavailable [...] Attending Unavailable Miedel, Bria Primary Care Unavailable Reynaldo [...] Referring Unavailable Clarisse Walden Attending Unavailable [place], [place] Primary Care Unavailable Miedel, Bria Referring Unavailable WinDenisaClarisse Attending Unavailable [facility], [place] Primary Care Unavailable Elier, Sullivan Referring Unavailable Elier, Sullivan Attending Unavailable [facility], [place] Primary Care Unavailable Elier, Sullivan Attending Unavailable Elier, Sullivan Referring Unavailable WinAnnabelleClarisse Attending Unavailable [facility], [place] Primary Care Unavailable Miedel, Bria Referring Unavailable Miedel, [place] Referring Unavailable WinClarisse Attending Unavailable [facility], [place] Primary Care Unavailable Demiter, Estuardo Referring Unavailable [facility], [place] Primary Care Unavailable Elier, Reynaldo Attending Unavailable Elier, Sullivan Referring Unavailable [place], [place] Primary Care Unavailable Elier, Reynaldo Attending Unavailable Ohed, [place] Primary Care Unavailable Elier, Reynaldo Attending Unavailable Elier, Reynaldo Referring Unavailable Mied, [place] Primary Care Unavailable Elier, Reynaldo Attending Unavailable Elier, Reynaldo Referring Unavailable [facility], [place] Primary Care Unavailable Elier, Reynaldo Referring Unavailable Elier, Reynaldo Attending Unavailable Elier, Sullivan Referring Unavailable Ohed, [place] Primary Care Unavailable Elier, Reynaldo Attending Unavailable Elier, Sullivan Referring Unavailable [facility], [place] Primary Care Unavailable Elier, Sullivan Attending Unavailable [facility], [place] Primary Care Unavailable Elier, Reynaldo Attending Unavailable Elier, Sullivan Referring Unavailable Allergies Allergy Classification Reported Allergen(s) Allergy Type Date of Onset Reaction(s) Facility (20 sources) codeine; Translations: [CODEINE] drug allergy 07-06-19 12 GI Upset, Vomiting [facility] Work Phone: (6 sources) dronedarone drug allergy 04-18-19 13 Severe GI intolerance [facility] Work Phone: (9 sources) loratadine; Translations: [LORATADINE] drug allergy 07-06-19 12 GI Upset, Vomiting [facility] Work Phone: (12 sources) meloxicam; Translations: [MOBIC] allergy to substance 08-05-19 15 N&V [facility] Work Phone: [phone] (9 sources) methylprednisoLONE; Translations: [METHYLPREDNISOLONE] drug allergy 07-06-19 12 GI Upset, Vomiting [facility] Work Phone: [phone] (12 sources) Penicillins (Antibiotic) drug allergy 04-18-19 13 N&V [facility] Work Phone: [phone] (6 sources) sulfamethoxazole / trimethoprim drug allergy 04-18-19 13 Hives, nausea [facility] Work Phone: [phone] (6 sources) CILLINS drug allergy 04-18-19 13 [facility] Work Phone: [phone] (20 sources) dronedarone; Translations: [DRONEDARONE] Drug Allergy 05-30-19 18 Unknown [facility] (20 sources) meloxicam; Translations: [MELOXICAM] Drug Allergy 05-30-19 18 Unknown [facility] (20 sources) Nitrofurantoin; Translations: [NITROFURANTOIN] Drug Allergy 01-26-20 20 Unknown [facility] (20 sources) Penicillins; Translations: [PENICILLINS] Allergy to substance 05-30-19 18 Shortness of Breath [facility] (20 sources) Sulfamethoxazole; Translations: [SULFAMETHOXAZOLE] Drug Allergy 07-06-19 12 GI Upset, Vomiting [facility] (20 sources) Trimethoprim; Translations: [TRIMETHOPRIM] Drug Allergy 07-21-19 19 GI Upset [facility] (20 sources) dapagliflozin Drug Allergy 03-08-19 24 Nausea/Vom/Cami rrhea [facility] (20 sources) metFORMIN Drug Allergy 03-08-19 24 PT UNSURE OF REACTION [facility] (19 sources) vibegron; Translations: [vibegron] Allergy to substance 05-16-19 25 Unknown [facility] (12 sources) Sulfacetamide Drug Allergy 09-18-19 25 Pt does not recall [facility] (1 source) dapagliflozin Drug Allergy 10-24-19 25 [facility] Repository (1 source) dronedarone Drug Allergy 07-18-19 25 [facility] Repository (1 source) meloxicam Drug Allergy 10-24-19 [facility] Repository (1 source) metFORMIN Drug Allergy 10-24-19 [facility] Repository (1 source) Nitrofurantoin Drug Allergy 10-24-19 [facility] Repository (1 source) Sulfacetamide Drug Allergy 10-24-19 [facility] (1 source) Sulfamethoxazole Drug Allergy 10-24-19 [facility] (1 source) Trimethoprim Drug Allergy 10-24-19 [facility] Repository Medications Current Medications Medication Drug [...] One tablet by mouth daily AMIODARONE HCL [id number] Reynaldo Thapa MD amoxicillin 875 mg / [...] End: 08-05-2014 ASPIRIN 81 MG TABS ASPIRIN [id number] Reynaldo Thapa MD Start: 04-19-2012 End: 08-05-2014 ASPIRIN 81 MG TABS 1 ASPIRIN [id number] Renyaldo Thapa MD Start: 04-19-2012 ASPIRIN 81 MG TABS ASPIRIN [id number] Reynaldo Thapa MD Start: 04-19-2012 End: 08-05-2014 ASPIRIN 81 MG TABS 1 ASPIRIN [id number] Reynaldo Thapa MD Start: 04-18-2012 take 1 tablet by william once daily ASPIRIN 325 MG TABS One tablet by mouth daily ASPIRIN [id number] Yesenia Rodríguez RN bacillus coagulans [id number] unt chewable tablet (16 sources) Start: 07-17-2024 [...] One tablet by mouth daily BIOTIN TABS [id number] Reynaldo Thapa MD Start: 06-30-2016 take 1 tablet by william th once daily BIOTIN FORTE TABS One tablet by mouth daily BIOTIN TABS [id number] Reynaldo Thapa MD calcitriol 0.49016 mg oral capsule (20 sources) Vitamin D3 [...] One tablet by mouth daily CITALOPRAM HYDROBROMIDE [id number] Yesenia Rodríguez RN clobetasol propionate 0.0005 mg/mg [...] DIAZEPAM 5 MG TABS As needed DIAZEPAM 16549291712 Yesenia Rodríguez RN estradiol 0.1 mg/ml vaginal [...] tablet by mouth twice daily FLECAINIDE ACETATE [id number] Reynaldo Thapa MD Start: 08-05-2014 take 0.5 tablet by m out twice daily FLECAINIDE ACETATE 100 MG TABS 1/2 tablet by mouth twice daily FLECAINIDE ACETATE [id number] Yesenia Rodríguez RN fluconazole 150 mg oral [...] three times daily for leg pain GABAPENTIN 28145242285 Yesenia Rodríguez RN Start: 04-18-2012 End: 04-16-2014 take 1 tablet by mouth three times daily for pain NEURONTIN 100 MG CAPS One tablet by mouth three times daily for leg pain GABAPENTIN 24439084162 Jazmin Cheng PA-C lansoprazole 30 mg delayed [...] % [facility] remove & reapply daily LIDOCAINE 07517235627 Yesenia Rodríguez RN Start: 04-18-2012 End: 07-23-2014 LIDODERM 5 % [facility] remove & r eapply daily LIDOCAINE 65118782173 Abigail Baltazar RN Start: 04-18-2012 LIDODERM 5 % P T[facility] remove & reapply daily LIDOCAINE 13557668749 Yesenia Rodríguez RN metroNIDAZOLE 500 mg oral [...] One tablet by mouth daily MULTIPLE VITAMIN [id number] Yesenia Rodríguez RN Start: 04-18-2012 End: 04-17-2013 take 1 tablet by mouth once daily MULTIVITAMINS TABS One tablet by mouth daily MULTIPLE VITAMIN 71706825863 Reynaldo Thapa MD MULTIPLE VITAMIN (6 sources) Start: 04-18-2012 take 1 tablet by mouth once daily MULTIVITAMINS TABS One tablet by mouth daily MULTIPLE VITAMIN [id number] Yesenia Rodríguez RN Start: 04-18-2012 End: 04-17-2013 take 1 tablet by mouth once daily MULTIVITAMINS TABS One tablet by mouth daily MULTIPLE VITAMIN 62724295853 Reyanldo Thapa MD Start: 04-18-2012 take 1 tablet by william once daily MULTIVITAMINS TABS One tablet by mouth daily MULTIPLE VITAMIN [id number] Yesenia Rodríguez RN Start: 04-18-2012 End: 04-17-2013 take 1 tablet by mouth once daily MULTIVITAMINS TABS One tablet by mouth daily MULTIPLE VITAMIN 21865784279 Reynaldo Thapa MD nebivolol 5 mg oral [...] CPDR One tablet by mouth daily OMEPRAZOLE 87602519391 Yesenia Rodríguez RN ondansetron 4 mg disintegrating [...] tablet by mouth twice daily RANITIDINE HCL 34979153886 Reynaldo Thapa MD rivaroxaban 20 mg oral [...] tablet by mouth four times daily SUCRALFATE 70563309184 Reynaldo Thapa MD take 1 tablet by william th four times daily CARAFATE 1 GM TABS One tablet by mouth four times daily SUCRALFATE 71279586809 Sadi Santoyo terconazole 4 mg/ml vaginal cream [...] as needed for severe pain TRAMADOL HCL 22999843039 Jazmin Cheng PA-C Vibegron (20 sources) Start: [...] units One tablet by mouth daily CHOLECALCIFEROL 86887357293 Yesenia Rodríguez RN Start: 04-18-2012 take 1 tablet by william th once daily VITAMIN D 1000 UNIT TABS One tablet by mouth daily CHOLECALCIFEROL 04612146069 Reynaldo Thapa MD Start: 04-18-2012 take 1 tablet by william th once daily VITAMIN D 1000 UNIT TABS One tablet by mouth daily CHOLECALCIFEROL [id number] Reynaldo Thapa MD Start: 04-18-2012 take 5 tablets by mo uth once daily, then take 1 tablet by mouth VITAMIN D 1000 UNIT TABS 5000 units One tablet by mouth daily CHOLECALCIFEROL 02702728487 Yesenia Rodríguez RN Problems Active Problems Problem [...] sources) Long-term current use of anticoagulant; Translations: [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 [place] [address] Pacemaker Check Date of Service: 11/10/241802 MR#: [id number] Acct: [id number] Name: SHIRLEY SHULTZ Rep #: [id number] : 1945 From: Anu Albright Age/Sex: 79/F [place] [facility] [place]: Signed Billing Codes PM Device Codes: 29355 PM Dev Prog Eval, Dual Assessment and Plan Assessment and Plan (1) Paroxysmal atrial fibrillation: Status: Acute (2) Tachy-eric syndrome: Status: Resolved (3) History of permanent cardiac pacemaker placement: Status: Chronic (4) Symptomatic bradycardia: Status: Acute 11/10/241802 Date Anu Kang Signature: Date (if applicable) CC: Normal [facility] Gastroenterology Visit Repor ton 10-23-2024 Gastroenterology Visit Report [facility] [address] [place] [address] OFFICE VISIT Date of Service: 10/23/24 MR#: [id number] Acct: [id number] Name: SHIRLEY SHULTZ Rep #: [id number] : 1945 Provider: JALEN foss Age/Sex: 79/F Location: [facility] [place] Status: Signed Intake Vital Signs 07/17/24 09:39 09/30/24 10:08 10/23/24 08:14 Height 5 ft 3 in 5 ft 3 in 5 ft 3 in Weight: 190 lb BMI 33.6 BP 133/90 H Respiration 16 Pulse 80 Temp 98.0 F Temp Source Temporal Pulse Oximetry (%) 97 Oxygen Delivery Method room air Intake Visit Reasons: 3 M FU Chief Complaint: follow-up Body Design Checker Required: No Accompanied by: Self Is patient [...] I cadena (more content not included)... Normal [facility] L501.2276on 10-09-2024 Ionized Calcium 1.19 mmol/L Normal 1.09-1.30 [facility] Comment on above: Performed By: #### L 509.1000, L501.2276, L506.1001 #### [facility] [address] [place], [address] PTHINon 10-09-2024 PTH 32 pg/mL Normal 11-61 [facility] Comment on above: Performed By: #### L 509.1000, L501.2276, L506.1001 #### [facility] [address] [place], [address] Vitamin D,25 Hydroxyon 10-09 Vitamin D 25-OH 43.9 ng/mL Normal 30-100 [facility] Comment on above: Result Comment: Gretel min D Status Deficiency: <20 ng/mL (50nmol/L) Insufficiency: 20-30 ng/mL (50-75 nmol/L) Sufficiency: 30-100 ng/mL (75-250 nmol/L) Toxicity: >100 ng/mL (>250 nmol/L) Performed By: #### L 509.1000, L501.2276, L506.1001 #### [facility] [address], [address] Cardiology Visit Reporton Cardiology Visit Report [facility] [address] [place] [address] OFFICE VISIT Date of Service: 09/30/24 MR#: [id number] Acct: [id number] Name: SHILREY SHULTZ Rep #: [id number] : 1945 Provider: Dr. Reynaldo Thapa MD Age/Sex: 79/F Location: [facility] [place] Status: Signed HPI HPI History of Present Illness Details: SHIRLEY SHULTZ, is a 79 F who presents to the office today for a cardiovascular follow-up. She has a history of hypertension, atrial fibrillation with a cardioversion in January 2018 and April of 2019 unsuccessfully and hyperlipidemia. She had seen the manager community at [facility] and it was felt that she would benefit from a permanent pacemaker due to uncontrolled atrial fibrillation. She had previously been on flecainide as well. She underwent pacemaker placement on 01/17/2021 for tachybradycardia syndrome. Patient presented to [facility] emergency department on 02/09/2021 for chest [...] Visit Reasons: 1 Y FU/GIA @ 10 Body Design Checker Required: No Accompanied by: Self Is patient [...] heart cat (more content not included)... Normal [facility] Pacemaker Checkon 09-30-2024 Pacemaker Check [facility] [address] [place] [address] Pacemaker Check Date of Service: 09/30/241732 MR#: [id number] Acct: [id number] Name: SHIRLEY SHULTZ Rep #: [id number] : 1945 From: Anu Albright Age/Sex: 79/F [place] [facility] [place]: Signed Billing Codes PM Device Codes: 38435 PM Dev Prog Eval, Dual Assessment and Plan Assessment and Plan (1) Paroxysmal atrial fibrillation: Status: Acute (2) History of permanent cardiac pacemaker placement: Status: Chronic (3) Symptomatic bradycardia: Status: Acute 09/30/241733 Date Anu Jose Ramon Kang Signature: Date (if applicable) CC: Normal [facility] Pacemaker Checkon 09-17-2024 Pacemaker Check [facility] [address] [place] [address] Pacemaker Check Date of Service: 09/17/24 1432 MR#: [id number] Acct: [id number] Name: SHIRLEY SHULTZ Rep #: [id number] : 1945 From: Anu Albright Age/Sex: 79/F Location[place] [facility] [place] Status: Signed Billing Codes PM Device Codes: 18124 PM Dev Prog Eval, Dual Assessment and [...] Kang Signature: Date (if applicable) CC: Normal [facility] L3410.9992on 07-21-2024 [facility] Misc. COMMENT Normal . [facility] Comment on above: Order Comment: [id number] VITD2-D3 SUZY WOODARD Result Comment: Test Ordered: [id number] 25-Hydroxyvitamin D LCMS D2+D3 25-Hydroxy, Vitamin D 35 ng/mL ES Reference Range: . Reference Range: All Ages: Target levels 30 - 100 25-Hydroxy, Vitamin D-2 <1.0 ng/mL ES Reference Range: . This test was developed and its performance characteristics determined by [facility]. It has not been cleared or approved by the Food and Drug Administration. 25-Hydroxy, Vitamin D-3 35 ng/mL ES Reference Range: . This test was developed and its performance characteristics determined by [facility]. It has not been cleared or approved by the Food and Drug Administration. Performed at: [email or web address] [address] [place] [id number] Die Attacher: Justus Hodges MD, Phone: [phone] Performed at: [facility] [id number] Die Attacher: Onur Marcum PhD, Phone: [phone] Performed By: #### L 509.1000, L3410.9992 #### [facility] [address], [address] L501.2276on 07-18-2024 Ionized Calcium 1.24 mmol/L Normal 1.09-1.30 [facility] Comment on above: Performed By: #### L 501.2276 #### [facility] [address] [place], [address] PTHINon 07-18-2024 PTH 65 pg/mL High 11-61 [facility] Comment on above: Performed By: #### L 509.1000, L3410.9992 #### [facility] [address] [place], [address] Absolute lymphocyte countOrd ered By: Clarisse Walden on 07-17-2024 Lymphocytes Auto (Unsp spec) [#/Vol] 1.72 10*3/uL 0.83-4.51 [facility] Absolute neutrophil countOrd ered By: Clarisse Walden on 07-17-2024 Neutrophils (Bld) [#/Vol] 6.2 10*3/uL 2.0-7.7 [facility] Anion gap in Serum or Plasma Ordered By: Clarisse Walden on 07-17-2024 Anion gap [Moles/Vol] 10 mmol/L 5- [facility] Automated lymphocyte count a s percentage of total leukocytesOrdered By: Clarisse Walden on 07-17-2024 Lymphocytes/100 WBC Auto (Unsp spec) 19.5 % [facility] BUN/creatinine ratioOrdered By: Clarisse Walden on 07-17-2024 Urea nitrogen/Creatinine [Mass ratio] 18.9 mg/mg - [facility] Basic Metabolic Profile (BMP )on 07-17-2024 BUN/CRE 18.9 RATIO Normal - [facility] Comment on above: Performed By: #### L 100.0100, L500.2500 #### [facility] [address] [place], [address] Calcium [Mass/Vol] 9.2 mg/dL Normal 7.6-11.0 [facility] Comment on above: Performed By: #### L 100.0100, L500.2500 #### [facility] [address] [place], [address] Chloride [Moles/Vol] 106 mmol/L Normal 98-108 [facility] Comment on above: Performed By: #### L 100.0100, L500.2500 #### [facility] [address] [place], [address] CO2 [Moles/Vol] 24.1 mmol/L Normal 21.0-32.0 [facility] Comment on above: Performed By: #### L 100.0100, L500.2500 #### [facility] [address] [place], [address] Creatinine [Mass/Vol] 1.14 mg/dL Normal 0.70-1.20 [facility] Comment on above: Performed By: #### L 100.0100, L500.2500 #### [facility] [address] [place], [address] GAP 10 Normal 5-15 [facility] Comment on above: Performed By: #### L 100.0100, L500.2500 #### [facility] [address] [place], [address] GFR/1.73 sq M.predicted among non-blacks MDRD (S/P/Bld) [Vol rate/Area] 50 mL/min/{1.73_m2} Low >60 [facility] Comment on above: Result Comment: mL/m in/1.73m2 CKD-EPI Creatinine Equation (2020) Performed By: #### L 100.0100, L500.2500 #### [facility] [address] [place], [address] Glucose [Mass/Vol] 103 mg/dL High 70-99 [facility] Comment on above: Performed By: #### L 100.0100, L500.2500 #### [facility] [address] [place], [address] Potassium [Moles/Vol] 4.8 mmol/L Normal 3.3-5.1 [facility] Comment on above: Result Comment: Hemo lysis present, Results??could be affected. ?? Performed By: #### L 100.0100, L500.2500 #### [facility] [address] [place], [address] Sodium [Moles/Vol] 140 mmol/L Normal 133-145 [facility] Comment on above: Performed By: #### L 100.0100, L500.2500 #### [facility] [address] [place], [address] Urea nitrogen [Mass/Vol] 22 mg/dL High 4-19 [facility] Comment on above: Performed By: #### L 100.0100, L500.2500 #### [facility] [address] [place], [address] Basophil percentageOrdered B y: Clarisse Walden on 07-17-2024 Basophils/100 WBC (Bld) 0.6 % 0-1 [facility] CBC W/Diff, Automatedon 06-20 Absolute Lymph 1.72 X10 3/uL Normal 0.83-4.51 [facility] Comment on above: Performed By: #### L 100.0100, L500.2500 #### [facility] [address] [place], [address] Absolute Neut 6.2 X10 3/uL Normal 2.0-7.7 [facility] Comment on above: Performed By: #### L 100.0100, L500.2500 #### [facility] [address] [place], [address] Basophils/100 WBC (Bld) 0.6 % Normal 0-1 [facility] Comment on above: Performed By: #### L 100.0100, L500.2500 #### [facility] [address] [place], [address] Eosinophils/100 WBC (Bld) 1.2 % Normal 0-5 [facility] Comment on above: Performed By: #### L 100.0100, L500.2500 #### [facility] Laboratory [address] [place], [address] Erythrocyte distribution width (RBC) [Ratio] 13.3 % Normal 11.6-14.6 [facility] Comment on above: Performed By: #### L 100.0100, L500.2500 #### [facility] Laboratory [address] [place], [address] Hematocrit (Bld) [Volume fraction] 43.1 % Normal 37-47 [facility] Comment on above: Performed By: #### L 100.0100, L500.2500 #### [facility] Laboratory [address] [place], [address] Hemoglobin (Bld) [Mass/Vol] 14.1 g/dL Normal 12.0-15.0 [facility] Comment on above: Performed By: #### L 100.0100, L500.2500 #### [facility] Laboratory [address] [place], [address] IG% 0.900 Normal 0.0-0.9 [facility] Comment on above: Result Comment: IG% - Immature Granulocytes (promyelocytes, myelocytes and metamyelocytes) > 1% indicates that a LEFT SHIFT is Present. Performed By: #### L 100.0100, L500.2500 #### [facility] Laboratory [address] [place], [address] Lymphocytes/100 WBC (Bld) 19.5 % Normal 19-41 [facility] Comment on above: Performed By: #### L 100.0100, L500.2500 #### [facility] Laboratory [address] [place], [address] MCH (RBC) [Entitic mass] 30.5 pg Normal 27.0-32.0 [facility] Comment on above: Performed By: #### L 100.0100, L500.2500 #### [facility] Laboratory [address] [place], [address] MCHC (RBC) [Mass/Vol] 32.7 g/dL Normal 32-36 [facility] Comment on above: Performed By: #### L 100.0100, L500.2500 #### [facility] Laboratory [address] [place], [address] MCV (RBC) [Entitic vol] 93.1 fL Normal 81-99 [facility] Comment on above: Performed By: #### L 100.0100, L500.2500 #### [facility] Laboratory [address] [place], [address] Monocytes/100 WBC (Bld) 8.0 % Normal 0-10 [facility] Comment on above: Performed By: #### L 100.0100, L500.2500 #### [facility] Laboratory [address] [place], [address] Neutrophils/100 WBC (Bld) 69.8 % Normal 47-70 [facility] Comment on above: Performed By: #### L 100.0100, L500.2500 #### [facility] Laboratory [address] [place], [address] Nucleated RBC (Bld) [#/Vol] 0 10*3/uL Normal 0-5 [facility] Comment on above: Performed By: #### L 100.0100, L500.2500 #### [facility] Laboratory [address] [place], [address] Platelet mean volume (Bld) [Entitic vol] 9.8 fL Normal 6.2-12.0 [facility] Comment on above: Performed By: #### L 100.0100, L500.2500 #### [facility] Laboratory [address] [place], [address] Platelets (Bld) [#/Vol] 194 10*3/uL Normal 150-450 [facility] Comment on above: Performed By: #### L 100.0100, L500.2500 #### [facility] Laboratory [address] [place], [address] RBC (Bld) [#/Vol] 4.63 10*6/uL Normal 4.2-5.[address] [facility] Comment on above: Performed By: #### L 100.0100, L500.2500 #### [facility] Laboratory [address] [place], [address] RDW SD 45.5 fl High 35.1-43.9 [facility] Comment on above: Performed By: #### L 100.0100, L500.2500 #### [facility] Laboratory [address] [place], [address] WBC (Bld) [#/Vol] 8.8 10*3/uL Normal 4.4-11.0 [facility] Comment on above: Performed By: #### L 100.0100, L500.2500 #### [facility] Laboratory [address] [place], [place], [id number] Carbon dioxide, total [Moles /volume] in Central venous bloodOrdered By: Clarisse Walden on 07-17-2024 CO2 [Moles/Vol] 24.1 mmol/L 21.0-32.0 [facility] Chloride assayOrdered By: Surjit Walden on 07-17-2024 Chloride [Moles/Vol] 106 mmol/L 98-108 [facility] Eosinophil percentageOrdered By: Clarisse Walden on 07-17-2024 Eosinophils/100 WBC (Bld) 1.2 % 0-5 [facility] Erythrocyte distribution wid th ratioOrdered By: Clarisse Walden on 07-17-2024 Erythrocyte distribution width (RBC) [Ratio] 13.3 % 11.6-14.6 [facility] Erythrocyte distribution wid th standard deviationOrdered By: Clarisse Walden on 07-17-2024 Erythrocyte distribution width (RBC) [Ratio] 45.5 fl High 35.1-43.9 [facility] Gastroenterology Visit Repor ton 07-17-2024 Gastroenterology Visit Report [facility] [address] [place] [address] OFFICE VISIT Date of Service: 07/17/24 MR#: [id number] Acct: [id number] Name: SHIRLEY SHULTZ Rep #: [id number] : 1945 Provider: JALEN foss Age/Sex: 79/F Location: [facility] [place] Status: Signed Intake Vital Signs 05/15/24 10:36 07/17/24 09:39 Height 5 ft 3 in 5 ft 3 in Weight: 196 lb 8 oz BMI 34.8 BP 116/76 Respiration 16 Pulse 66 Pulse Oximetry (%) 97 Oxygen Delivery Method room air Intake Visit Reasons: 6 WK FU Chief Complaint: follow-up Body Design Checker Required: No Accompanied by: self Is patient in pain?: No Allergies dapagliflozin (From Farxiga) Allergy (Severe, Verified 07/17/24 09:36) Nausea/Vom/Diarrhea dronedarone (From Multaq) Allergy (Severe, Verified 07/17/24 09:36) ANAPHYLAXIS per [facility] [place] codeine Allergy (Intermediate, Verified 07/17/24 09:36) PT [...] year?: No Nurse's Note: Stool is black [facility] Medical History Right renal stone Cataracts, bilateral [...] use: alway (more content not included)... Normal [facility] Glomerular filtration rate ( GFR) estimation/1.73 sq m using serum, plasma, or whole bOrdered By: Clarisse Walden on 07-17-2024 GFR/1.73 sq M.predicted among non-blacks MDRD (S/P/Bld) [Vol rate/Area] 50 mL/min/{1.73_m2} Low >60 [facility] Comment on above: mL/min/1.73m2 CKD-EP I Creatinine Equation (2020) Hematocrit Auto (Bld) [Volum e fraction]Ordered By: Clarisse Walden on 07-17-2024 Hematocrit (Bld) [Volume fraction] 43.1 % 37-47 [facility] Hemoglobin measurementOrdere d By: Clarisse Walden on 07-17-2024 Hemoglobin (Bld) [Mass/Vol] 14.1 g/dL 12.0-15.0 [facility] Immature granulocytes/100 WB C Auto (Bld)Ordered By: Clarisse Walden on 07-17-2024 Immature granulocytes/100 WBC (Bld) 0.900 % 0.0-0.9 [facility] Comment on above: IG% - Immature Granu locytes (promyelocytes, myelocytes and metamyelocytes) > 1% indicates that a LEFT SHIFT is Present. MCV (mean corpuscular volume ) determinationOrdered By: Clarisse Walden on 07-17-2024 MCV (RBC) [Entitic vol] 93.1 fL 81-99 [facility] Mean corpuscular hemoglobin (MCH) determinationOrdered By: Clarisse Walden on 07-17-2024 MCH (RBC) [Entitic mass] 30.5 pg 27.0-32.0 [facility] Mean corpuscular hemoglobin concentration (MCHC) determinationOrdered By: Clarisse Walden on 07-17-2024 MCHC (RBC) [Mass/Vol] 32.7 g/dL 32-36 [facility] Mean platelet volume determi nationOrdered By: Clarisse Walden on 07-17-2024 Platelet mean volume (Bld) [Entitic vol] 9.8 fL 6.2-12.0 [facility] Monocyte percentageOrdered B y: Clarisse Walden on 07-17-2024 Monocytes/100 WBC (Bld) 8.0 % 0-10 [facility] Neutrophil percentageOrdered By: Clarisse Walden on 07-17-2024 Neutrophils/100 WBC (Bld) 69.8 % 47-70 [facility] Nucleated red blood cell per centageOrdered By: Clarisse Walden on 07-17-2024 Nucleated RBC/100 WBC (Bld) [Ratio] 0 % 0-5 [facility] Platelet countOrdered By: Surjit Walden on 07-17-2024 Platelets (Bld) [#/Vol] 194 10*3/uL 150-450 [facility] Potassium measurement (mass/ volume)Ordered By: Clarisse Walden on 07-17-2024 Potassium (Unsp spec) [Mass/Vol] 4.8 mmol/L 3.3-5.1 [facility] Comment on above: Hemolysis present, R esults could be affected. RBC Auto (Bld) [#/Vol]Ordere d By: Clarisse Walden on 07-17-2024 RBC (Bld) [#/Vol] 4.63 10*6/uL 4.2-5.[address] [facility] Serum creatinine measurement (mass/volume)Ordered By: Clarisse Walden on 07-17-2024 Creatinine [Mass/Vol] 1.14 mg/dL 0.70-1.20 [facility] Serum glucose measurement (m ass/volume)Ordered By: Clarisse Walden on 07-17-2024 Glucose [Mass/Vol] 103 mg/dL High 70-99 [facility] Serum or plasma calcium pyeton urement (mass/volume)Ordered By: Clarisse Walden on 07-17-2024 Calcium [Mass/Vol] 9.2 mg/dL 7.6-11.0 [facility] Serum or plasma urea nitroge n measurement (mass/volume)Ordered By: Clarisse Walden on 07-17-2024 Urea nitrogen [Mass/Vol] 22 mg/dL High 4-19 [facility] Sodium levelOrdered By: Marcie Walden on 07-17-2024 Sodium [Moles/Vol] 140 mmol/L 133-145 [facility] White blood cell (WBC) count Ordered By: Clarisse Walden on 07-17-2024 WBC (Bld) [#/Vol] 8.8 10*3/uL 4.4-11.0 [facility] Esophagus Dual Contraston Esophagus Dual Contrast [facility] Imaging Services [address] [place] [address] Esophagus Dual Contrast MR#: [id number] Acct: [id number] Name: SHIRLEY SHULTZ Rep #: [id number] : 1945 F 79 From: Nacho nunes MD PCP: Dr. Bria Spencer MD Status: REG CLI Study: Esophagus Dual Contrast Date of Exam: 07/07/24 Exam# [id number] Ordering Dr: Clarisse Walden PROCEDURE: ESOPHAGUS DUAL [...] Unremarkable air contrast esophagram. Reading Location: [facility]--1 CC: EMBEDDERLiang Walden; Dr. Bria Spencer MD Shoe Puller: Signed Normal [facility] Modified Barium Swallow Stud [facility] 07-01-2024 Modified Barium Swallow Study [facility] Speech Pathology [address] [place] [address] Modified Barium Swallow Study MR#: [id number] Acct: [id number] Name: SHIRLEY SHULTZ Rep #: [id number] : 1945 79 From: Shital Hernandes M.A., CCC[employer]ER Modified Barium Swallow Patient Information Study Date: [...] cup: Result: 2= enter airway/above vocal folds/ejected Kennedy Thick Liquid via large single sip: cup: [...] column o (more content not included)... Normal [facility] Gastroenterology Visit Repor ton 03-27-2025 Gastroenterology Visit Report [facility] [address] [place] [address] OFFICE VISIT Date of Service: 05/15/24 MR#: [id number] Acct: [id number] Name: SHIRLEY SHULTZ Rep #: [id number] : 1945 Provider: JALEN foss Age/Sex: 79/F [place] [facility] [place]: S[place] Intake Vital Signs 08/21/23 06:28 [...] Verified 05/15/24 10:26) ANAPHYLAXIS per [facility] [place] codeine Allergy (Intermediate, Verified 05/15/24 10:26) PT [...] feels bloated. Has a hard time swallowing. [facility] Medical History Right renal stone Cataracts, bilateral [...] SHIRLEY AVALOS (more content not included)... Normal [facility] Shoulder min 2 Viewson 03-07 Shoulder min 2 Views [facility] Imaging Services [address] [place] [address] [phone] Shoulder min 2 Views MR#: [id number] Acct: [id number] Name: SHIRLEY SHULTZ Rep #: [id number] : 1945 F 78 From: Helder pettit MD PCP: Dr. Bria Spencer MD Status: [facility] Study: Shoulder min 2 Views Date of Exam: 03/07/24 Exam# [id number] Ordering Dr: Bria Spencer MD :[id number] STUDY: X-RAY - LEFT SHOULDER REASON FOR [...] 10:38 EST Reading Location ID and State: [address] [place] [address] , Service support , CC: Dr. Bria Spencer MD Shoe Puller: Signed Normal [facility] Shoulder min 2 Views [facility] Imaging Services [address] [place] [id number] Shoulder min 2 Views MR#: [id number] Acct: [id number] Name: SHIRLEY SHULTZ Rep #: [id number] : 1945 F 78 From: Helder pettit MD PCP: Dr. Bria Spencer MD Status: REG CLI Study: Shoulder min 2 Views Date of Exam: 03/07/24 Exam# [id number] Ordering Dr: Bria Spencer MD :[id number] STUDY: X-RAY - RIGHT SHOULDER REASON FOR [...] EST , CC: Dr. Bria Spencer MD Shoe Puller: Signed [facility] CNOVon 09-05-2023 [facility] Office Visit (AGGENS 4) SHIRLEY SHULTZ ([id number]) 1945 F Date Time Provider Department 09/05/23 [...] intact. DCI within normal limits. EGJOO per [place] Classification - concerning for possible achalasia Social: denies x3 PSHx: cardiac pacemaker placement (2020), cardioversion, cardiac catheterization, TL, detached retina repair, parathyroidectomy PAST MEDICAL HISTORY: PAST MEDICAL HISTORY Diagnosis Date Ambulates with cane Anticoagulant long-term use indication: stroke prevention atrial fibrillation Anxiety and depression Arthritis At risk for stroke [id number] = 3 (HTN, age, female gender) Atrophic [...] LIGATE FALLOPIAN TUBE 1982 MANOMETRY ESOPHAGEAL 06/22/2023 [place] PARATHYROIDECTOMY/EXPLORATIO N PARATHYROIDS REPAIR, DETACHED RETINA, LASER STRESS TEST 2018 FAMILY HISTORY: FAMILY HISTORY Problem Relation Age of Onset Heart Attack Mother Arthritis Mother Angioedema Mother Hypertension Mother other (artthritis) Mother Prostate Cancer Father Breast Cancer Sister Diabetes Brother Heart Failure Brother Heart Attack Brother Prostate Cancer Brother COPD Brother COPD Brother Hypertensi (more content not included)... Normal [facility] CNPNon 09-04-2023 CNPN Telephone (AGGENS4) SHIRLEY SHULTZ ([id number]) 1945 F Date Time Provider Department 09/04/23 [...] Encounter Status:Closed by DOMINICK LEACH on 09/04/23 [facility] Thin prep Papanicolaou smear with manual screeningOrdered By: Win John on 06-12-2023 Thin prep Papanicolaou smear with manual screening 107 mg/dL 74-106 [facility] Comment on above: MANAGEMENT OF PATIEN T CARE PER NURSING PROTOCOL Absolute lymphocyte countOrd ered By: Ryan Townsend on 04-04-2023 Lymphocytes Auto (Unsp spec) [#/Vol] 1.09 10*3/uL 0.83-4.51 [facility] Automated lymphocyte count a s percentage of total leukocytesOrdered By: Ryan Townsend on 04-04-2023 Lymphocytes/100 WBC Auto (Unsp spec) 11.6 % 19-41 [facility] Basophil percentageOrdered B y: Ryan Townsend on 04-04-2023 Basophil percentage 10-25 SEEN /hpf 0-5 [facility] Lactate [Moles/Vol] 1.5 mmol/L 0.4-2.[address] [facility] Basophils/100 WBC (Bld) 0.3 % 0-1 [facility] Bilirubin [Mass/Vol] 1.00 mg/dL 0.20-1.00 [facility] Comment on above: For patients on eltr ombopag therapy, use of Dimension Maryneal TBIL is not recommended. Chloride [Moles/Vol] 107 mmol/L 98-107 [facility] Eosinophils/100 WBC (Bld) 0.3 % 0-5 [facility] Glucose [Mass/Vol] 163 mg/dL 74-106 [facility] Comment on above: Fasting Glucose resu lt greater than or equal to 126 mg/dL suggests DIABETES MELLITUS per A.D.A. criteria. Hemoglobin (Bld) [Mass/Vol] 16.3 g/dL 12.0-15.0 [facility] Monocytes/100 WBC (Bld) 7.1 % 0-10 [facility] Neutrophils (Bld) [#/Vol] 7.5 10*3/uL 2.0-7.7 [facility] Neutrophils/100 WBC (Bld) 80.1 % 47-70 [facility] Potassium [Moles/Vol] 4.2 mmol/L 3.5-5.1 [facility] Protein [Mass/Vol] 7.1 g/dL 6.4-8.2 [facility] Sodium [Moles/Vol] 137 mmol/L 136-145 [facility] WBC (Bld) [#/Vol] 9.4 10*3/uL 4.4-11.0 [facility] Bilirubin Test strip Ql (U)O rdered By: Ryan Townsend on 04-04-2023 Bilirubin Ql (U) Negative Negative [facility] Determination of erythrocyte mean corpuscular volume (MCV)Ordered By: Ryan Townsend on 04-04-2023 MCV (RBC) [Entitic vol] 93.6 fL 81-99 [facility] Direct bilirubinOrdered By: Ryan Townsend on 04-04-2023 Bilirubin.direct [Mass/Vol] 0.28 mg/dL 0.00-0.30 [facility] Erythrocyte distribution wid th ratioOrdered By: Ryan Townsend on 04-04-2023 Erythrocyte distribution width (RBC) [Ratio] 13.2 % 11.6-14.6 [facility] Erythrocyte distribution wid th standard deviationOrdered By: Ryan Townsend on 04-04-2023 Erythrocyte distribution width (RBC) [Entitic vol] 45.3 fL 35.1-43.9 [facility] Hematocrit Auto (Bld) [Volum e fraction]Ordered By: Ryan Townsend on 04-04-2023 Hematocrit (Bld) [Volume fraction] 48.3 % 37-47 [facility] Hyaline casts LM.LPF (Urine sed) [#/Area]Ordered By: Ryan Townsend on 04-04-2023 Hyaline casts (Urine sed) [#/Area] 5 /[LPF] 0-5 [facility] Immature granulocytes/100 WB C Auto (Bld)Ordered By: Ryan Townsend on 04-04-2023 Immature granulocytes/100 WBC (Bld) 0.600 % 0.0-0.9 [facility] Comment on above: IG% - Immature Granu locytes (promyelocytes, myelocytes and metamyelocytes) > 1% indicates that a LEFT SHIFT is Present. Ketones Test strip Ql (U)Ord ered By: Ryan Townsend on 04-04-2023 Ketones Ql (U) Negative Negative [facility] Laboratory - Chemistry and C hemistry - challengeOrdered By: Ryan Townsend on 04-04-2023 ALP [Catalytic activity/Vol] 113 U/L 45-117 [facility] ALT [Catalytic activity/Vol] 62 U/L 13-56 [facility] CO2 [Moles/Vol] 28.0 mmol/L 21.0-32.0 [facility] Globulin (S) [Mass/Vol] 3.2 g/dL 2.2-4.2 [facility] Lipase [Catalytic activity/Vol] 44 U/L 13-75 [facility] Comment on above: Please note:LIPASE r evised reference range effective 22. New Lipase methodology. Expected to produce lower values than the previous assay method. NEW Reference Range: 13 - 75 U/L Urea nitrogen/Creatinine [Mass ratio] 14.6 mg/mg 10-20 [facility] Laboratory - Hematology and Cell countsOrdered By: Ryan Townsend on 04-04-2023 MCH (RBC) [Entitic mass] 31.6 pg 27.0-32.0 [facility] MCHC (RBC) [Mass/Vol] 33.7 g/dL 32-36 [facility] Nucleated RBC/100 WBC (Bld) [Ratio] 0 % 0-5 [facility] Platelet mean volume (Bld) [Entitic vol] 10.7 fL 6.2-12.0 [facility] Platelets (Bld) [#/Vol] 188 10*3/uL 150-450 [facility] Mucus LM Ql (Urine sed)Order ed By: Ryan Townsend on 04-04-2023 Mucus Ql (Urine sed) 0 SEEN /hpf [facility] Nitrite Test strip Ql (U)Ord ered By: Ryan Townsend on 04-04-2023 Nitrite Ql (U) Negative Negative [facility] No Panel InformationOrdered By: yRan Townsend on 04-04-2023 Urine RBC 0-5 SEEN /hpf 0-5 [facility] Estimated GFR (MDRD) Amer 41 mL/min >60 [facility] Comment on above: GFR Calc Estimated GFR (MDRD) Non-Af Amer 34 mL/min >60 [facility] Comment on above: Non- GFR Calc Troponin I High Sensitivity 16 pg/mL 3.0-54.0 [facility] Comment on above: Please Note: New Elidia t Units and Gender Specific Reference Ranges. For more information see Policy Stat Procedure Maryneal High Sensitivity Troponin (TNIH) and attachments. Protein Test strip Ql (U)Ord ered By: Ryan Townsend on 04-04-2023 Protein Ql (U) 100 mg/dl Negative [facility] RBC Auto (Bld) [#/Vol]Ordere d By: Ryan Townsend on 04-04-2023 RBC (Bld) [#/Vol] 5.16 10*6/uL 4.2-5.[address] [facility] Serum or plasma calcium peyton urement (mass/volume)Ordered By: Ryan Townsend on 04-04-2023 Calcium [Mass/Vol] 8.9 mg/dL 8.5-10.1 [facility] Serum or plasma creatinine m easurement (mass/volume)Ordered By: Ryan Townsend on 04-04-2023 Creatinine [Mass/Vol] 1.58 mg/dL 0.55-1.02 [facility] Comment on above: The validity of the calculated GFR & GFRAA in patients over 70 years has not been determined. Clinical correlation is essential. Serum or plasma urea nitroge n measurement (mass/volume)Ordered By: Ryan Townsend on 04-04-2023 Urea nitrogen [Mass/Vol] 23 mg/dL 7-18 [facility] Squamous epithelial cells de tection in urine sediment by light microscopyOrdered By: Ryan Townsend on 04-04-2023 Epithelial cells.squamous LM Ql (Urine sed) 5-10 SEEN /hpf 5-10 [facility] Thin prep Papanicolaou smear with manual screeningOrdered By: Ryan Townsend on 04-04-2023 Thin prep Papanicolaou smear with manual screening 3.9 g/dL 3.2-5.0 [facility] Thin prep Papanicolaou smear with manual screening 34 U/L 15-37 [facility] Thin prep Papanicolaou smear with manual screening 2 5-15 [facility] Urine blood detectionOrdered By: Ryan Townsend on 04-04-2023 RBC Ql (U) 25 /ul Negative [facility] Urine clarityOrdered By: Phil Townsend on 04-04-2023 Clarity (U) Sl. Cloudy Clear [facility] Urine color determinationOrd ered By: Ryan Townsend on 04-04-2023 Color (U) Yellow Yellow [facility] Urine glucose detectionOrder ed By: Ryan Townsend on 04-04-2023 Glucose Ql (U) Normal mg/dl Normal [facility] Urine leukocyte esterase det ection by dipstickOrdered By: Ryan Townsend on 04-04-2023 Leukocyte esterase Test strip Ql (U) 500 /ul Negative [facility] Urine pHOrdered By: Ryan chávez on 04-04-2023 pH (U) 5.0 [pH] 5.0 - 8.0 [facility] Urine sediment bacteria coun t by microscopy (number/high power field)Ordered By: Ryan Townsend on 04-04-2023 Bacteria LM.HPF (Urine sed) [#/Area] 1 /[HPF] None Seen [facility] Urine specific gravity measu rementOrdered By: Ryan Townsend on 04-04-2023 Specific gravity (U) [Rel density] 1.020 1.002-1.03 0 [facility] Urine urobilinogen measureme ntOrdered By: Ryan Townsend on 04-04-2023 Urobilinogen Ql (U) Normal mg/dl Normal [facility] Intact parathyroid hormone ( iPTH) measurementOrdered By: Azar Hammonds on 03-15-2023 Parathyrin.intact (Tissue fine needle aspirate) [Mass/Vol] 66.9 pg/mL 18.4-80.1 [facility] Serum or plasma calcium peyton urement (mass/volume)Ordered By: Azar Hammonds on 03-15-2023 Calcium [Mass/Vol] 9.5 mg/dL 8.5-10.1 [facility] Basophil percentageOrdered B y: Ambrose Byers on 03-08-2023 Hemoglobin (Bld) [Mass/Vol] 15.5 g/dL 12.0-15.0 [facility] WBC (Bld) [#/Vol] 7.4 10*3/uL 4.4-11.0 [facility] Determination of erythrocyte mean corpuscular volume (MCV)Ordered By: Ambrose Byers on 03-08-2023 MCV (RBC) [Entitic vol] 93.6 fL 81-99 [facility] Erythrocyte distribution wid th ratioOrdered By: Ambrose Byers on 03-08-2023 Erythrocyte distribution width (RBC) [Ratio] 13.0 % 11.6-14.6 [facility] Erythrocyte distribution wid th standard deviationOrdered By: Ambrose Byers on 03-08-2023 Erythrocyte distribution width (RBC) [Entitic vol] 45.1 fL 35.1-43.9 [facility] Hematocrit Auto (Bld) [Volum e fraction]Ordered By: Ambrose Byers on 03-08-2023 Hematocrit (Bld) [Volume fraction] 48.2 % 37-47 [facility] Intact parathyroid hormone ( iPTH) measurementOrdered By: Azar Hammonds on 03-08-2023 Parathyrin.intact (Tissue fine needle aspirate) [Mass/Vol] 10.0 pg/mL 18.4-80.1 [facility] Laboratory - Hematology and Cell countsOrdered By: Ambrose Byers on 03-08-2023 MCH (RBC) [Entitic mass] 30.1 pg 27.0-32.0 [facility] MCHC (RBC) [Mass/Vol] 32.2 g/dL 32-36 [facility] Platelets (Bld) [#/Vol] 174 10*3/uL 150-450 [facility] Platelet mean volume Ponce-Ec ker (Bld) [Entitic vol]Ordered By: Ambrose Byers on 03-08-2023 Platelet mean volume (Bld) [Entitic vol] 10.3 fL 6.2-12.0 [facility] RBC Auto (Bld) [#/Vol]Ordere d By: Ambrose Byers on 03-08-2023 RBC (Bld) [#/Vol] 5.15 10*6/uL 4.2-5.[address] [facility] Thin prep Papanicolaou smear with manual screeningOrdered By: Azar Hammonds on 03-08-2023 Thin prep Papanicolaou smear with manual screening 119 mg/dL 74-106 [facility] Comment on above: MANAGEMENT OF PATIEN T CARE PER NURSING PROTOCOL Basophil percentageOrdered B y: Bria Spencer on 02-20-2023 Bilirubin [Mass/Vol] 0.80 mg/dL 0.20-1.00 [facility] Comment on above: For patients on eltr ombopag therapy, use of Dimension Maryneal TBIL is not recommended. Chloride [Moles/Vol] 108 mmol/L 98-107 [facility] Glucose [Mass/Vol] 116 mg/dL 74-106 [facility] Comment on above: Fasting Glucose resu lt from 100 to 125 mg/dL suggests IMPAIRED HOMEOSTASIS per A.D.A. criteria. Potassium [Moles/Vol] 4.3 mmol/L 3.5-5.1 [facility] Protein [Mass/Vol] 6.7 g/dL 6.4-8.2 [facility] Sodium [Moles/Vol] 140 mmol/L 136-145 [facility] Laboratory - Chemistry and C hemistry - challengeOrdered By: Bria Spencer on 02-20-2023 ALP [Catalytic activity/Vol] 83 U/L 45-117 [facility] ALT [Catalytic activity/Vol] 19 U/L 13-56 [facility] CO2 [Moles/Vol] 28.0 mmol/L 21.0-32.0 [facility] Globulin (S) [Mass/Vol] 3.1 g/dL 2.2-4.2 [facility] Urea nitrogen/Creatinine [Mass ratio] 14.2 mg/mg 10-20 [facility] No Panel InformationOrdered By: Bria Spencer on 02-20-2023 Ionized Calcium 5.23 mg/dL 4.36-5.20 [facility] Estimated GFR (MDRD) Amer 56 mL/min >60 [facility] Comment on above: GFR Calc Estimated GFR (MDRD) Non-Af Amer 46 mL/min >60 [facility] Comment on above: Non- GFR Calc Parathyroid Hormone (Intact) 211.2 pg/mL 18.4-80.1 [facility] Vitamin D 25-Hydroxy 36.9 ng/mL [facility] Comment on above: Vitamin D 25(OH) Sta tus Range Deficiency <20 ng/mL (50nmol/L) Insufficiency 20 - 30 ng/mL (50 - 75 nmol/L) Sufficiency 30 - 100 ng/mL (75 - 250 nmol/L) Toxicity >100 ng/mL (>250 nmol/L) Serum or plasma albumin peyton urement (mass/volume)Ordered By: Bria Spencer on 02-20-2023 Albumin [Mass/Vol] 3.6 g/dL 3.2-5.0 [facility] Serum or plasma albumin/glob ulin mass ratioOrdered By: Bria Spencer on 02-20-2023 Albumin/Globulin [Mass ratio] 1.2 {ratio} 0.9-2.4 [facility] Serum or plasma calcium peyton urement (mass/volume)Ordered By: Bria Spencer on 02-20-2023 Calcium [Mass/Vol] 9.4 mg/dL 8.5-10.1 [facility] Serum or plasma creatinine m easurement (mass/volume)Ordered By: Bria Spencer on 02-20-2023 Creatinine [Mass/Vol] 1.20 mg/dL 0.55-1.02 [facility] Comment on above: The validity of the calculated GFR & GFRAA in patients over 70 years has not been determined. Clinical correlation is essential. Serum or plasma urea nitroge n measurement (mass/volume)Ordered By: Bria Spencer on 02-20-2023 Urea nitrogen [Mass/Vol] 17 mg/dL 7-18 [facility] Thin prep Papanicolaou smear with manual screeningOrdered By: Bria Spencer on 02-20-2023 Thin prep Papanicolaou smear with manual screening 15 U/L 15-37 [facility] Thin prep Papanicolaou smear with manual screening 4 5-15 [facility] Basophil percentageOrdered B y: Valerie Bharathbarry on 11-08-2022 Bilirubin [Mass/Vol] 1.20 mg/dL 0.20-1.00 [facility] Comment on above: For patients on eltr ombopag therapy, use of Dimension Maryneal TBIL is not recommended. Chloride [Moles/Vol] 103 mmol/L 98-107 [facility] Glucose [Mass/Vol] 169 mg/dL 74-106 [facility] Comment on above: Fasting Glucose resu lt greater than or equal to 126 mg/dL suggests DIABETES MELLITUS per A.D.A. criteria. Potassium [Moles/Vol] 4.8 mmol/L 3.5-5.1 [facility] Protein [Mass/Vol] 7.5 g/dL 6.4-8.2 [facility] Sodium [Moles/Vol] 137 mmol/L 136-145 [facility] Laboratory - Chemistry and C hemistry - challengeOrdered By: Valerie Garber on 11-08-2022 ALP [Catalytic activity/Vol] 82 U/L 45-117 [facility] ALT [Catalytic activity/Vol] 31 U/L 13-56 [facility] CO2 [Moles/Vol] 29.0 mmol/L 21.0-32.0 [facility] Globulin (S) [Mass/Vol] 3.8 g/dL 2.2-4.2 [facility] Urea nitrogen/Creatinine [Mass ratio] 18.4 mg/mg 10-20 [facility] No Panel InformationOrdered By: Valerie Garber on 11-08-2022 Ionized Calcium 5.56 mg/dL 4.36-5.20 [facility] Estimated GFR (MDRD) Amer 67 mL/min >60 [facility] Comment on above: GFR Calc Estimated GFR (MDRD) Non-Af Amer 55 mL/min >60 [facility] Comment on above: Non- GFR Calc Parathyroid Hormone (Intact) 168.4 pg/mL 18.4-80.1 [facility] Vitamin D 25-Hydroxy 32.1 ng/mL [facility] Comment on above: Vitamin D 25(OH) Sta tus Range Deficiency <20 ng/mL (50nmol/L) Insufficiency 20 - 30 ng/mL (50 - 75 nmol/L) Sufficiency 30 - 100 ng/mL (75 - 250 nmol/L) Toxicity >100 ng/mL (>250 nmol/L) Serum or plasma albumin peyton urement (mass/volume)Ordered By: Valerie Garber on 11-08-2022 Albumin [Mass/Vol] 3.7 g/dL 3.2-5.0 [facility] Serum or plasma albumin/glob ulin mass ratioOrdered By: Valerie Garber on 11-08-2022 Albumin/Globulin [Mass ratio] 1.0 {ratio} 0.9-2.4 [facility] Serum or plasma calcium peyton urement (mass/volume)Ordered By: Valerie Garber on 11-08-2022 Calcium [Mass/Vol] 10.1 mg/dL 8.5-10.1 [facility] Serum or plasma creatinine m easurement (mass/volume)Ordered By: Valerie Garber on 11-08-2022 Creatinine [Mass/Vol] 1.03 mg/dL 0.55-1.02 [facility] Comment on above: The validity of the calculated GFR & GFRAA in patients over 70 years has not been determined. Clinical correlation is essential. Serum or plasma urea nitroge n measurement (mass/volume)Ordered By: Valerie Garber on 11-08-2022 Urea nitrogen [Mass/Vol] 19 mg/dL 7-18 [facility] Thin prep Papanicolaou smear with manual screeningOrdered By: Valerie Garber on 11-08-2022 Thin prep Papanicolaou smear with manual screening 13 U/L 15-37 [facility] Thin prep Papanicolaou smear with manual screening 5 5-15 [facility] Basophil percentageOrdered B y: Valerie Garber on 09-15-2022 Bilirubin [Mass/Vol] 0.50 mg/dL 0.20-1.00 [facility] Comment on above: For patients on eltr ombopag therapy, use of Dimension Maryneal TBIL is not recommended. Chloride [Moles/Vol] 105 mmol/L 98-107 [facility] Glucose [Mass/Vol] 171 mg/dL 74-106 [facility] Comment on above: Fasting Glucose resu lt greater than or equal to 126 mg/dL suggests DIABETES MELLITUS per A.D.A. criteria. Potassium [Moles/Vol] 4.5 mmol/L 3.5-5.1 [facility] Protein [Mass/Vol] 7.2 g/dL 6.4-8.2 [facility] Sodium [Moles/Vol] 139 mmol/L 136-145 [facility] Laboratory - Chemistry and C hemistry - challengeOrdered By: Valerie Garber on 09-15-2022 ALP [Catalytic activity/Vol] 90 U/L 45-117 [facility] ALT [Catalytic activity/Vol] 21 U/L 13-56 [facility] CO2 [Moles/Vol] 29.0 mmol/L 21.0-32.0 [facility] Globulin (S) [Mass/Vol] 3.6 g/dL 2.2-4.2 [facility] Urea nitrogen/Creatinine [Mass ratio] 13.7 mg/mg 10-20 [facility] No Panel InformationOrdered By: Valerie Garber on 09-15-2022 Estimated GFR (MDRD) Amer 58 mL/min >60 [facility] Comment on above: GFR Calc Estimated GFR (MDRD) Non-Af Amer 48 mL/min >60 [facility] Comment on above: Non- GFR Calc Ionized Calcium TNP [facility] Comment on above: Test not performedSP ECIMEN NOT COLLECTED PROPERLY OR ORDERED CORRECTLY Miscellaneous Test See comment [facility] Comment on above: TEST RESULT LIMITSPT HrP (PTH-Related Peptide) <2.0 pmol/LThis test was developed and its performance characteristicsdetermined by [employer]. It has not been cleared or approvedby the Food and Drug Administration.Reference Range:All Ages: <2.0The PTHrP assay should not be used to exclude cancer orscreen tumor patients for humoral hypercalcemia ofmalignancy (HHM). The results should always be assessed inconjunction with the patient's medical history, clinicalexamination, and other findings. If test results areclinically discordant, please contact the laboratory. TESTING PERFORMED AT [facility]. ORIGINAL REPORT ON FILE IN LAB CONTAINS ADDITIONAL TEST SITE INFORMATION. Parathyroid Hormone (Intact) 232.9 pg/mL 18.4-80.1 [facility] Vitamin D 25-Hydroxy 18.4 ng/mL [facility] Comment on above: Vitamin D 25(OH) Sta tus Range Deficiency <20 ng/mL (50nmol/L) Insufficiency 20 - 30 ng/mL (50 - 75 nmol/L) Sufficiency 30 - 100 ng/mL (75 - 250 nmol/L) Toxicity >100 ng/mL (>250 nmol/L) Serum or plasma albumin peyton urement (mass/volume)Ordered By: Valerie Garber on 09-15-2022 Albumin [Mass/Vol] 3.6 g/dL 3.2-5.0 [facility] Serum or plasma albumin/glob ulin mass ratioOrdered By: Valerie Garber on 09-15-2022 Albumin/Globulin [Mass ratio] 1.0 {ratio} 0.9-2.4 [facility] Serum or plasma calcitriol m easurement (mass/volume)Ordered By: Valerie Garber on 09-15-2022 1,25-dihydroxyvitamin D3 [Mass/Vol] 55.9 pg/mL 24.8-81.5 [facility] Comment on above: Performed at: [facility] [address] [id number] Director: Ana Soto MD, Phone: [phone] Serum or plasma calcium peyton urement (mass/volume)Ordered By: Valerie Garber on 09-15-2022 Calcium [Mass/Vol] 9.8 mg/dL 8.5-10.1 [facility] Serum or plasma creatinine m easurement (mass/volume)Ordered By: Valerie Garber on 09-15-2022 Creatinine [Mass/Vol] 1.17 mg/dL 0.55-1.02 [facility] Comment on above: The validity of the calculated GFR & GFRAA in patients over 70 years has not been determined. Clinical correlation is essential. Serum or plasma urea nitroge n measurement (mass/volume)Ordered By: Valerie Garber on 09-15-2022 Urea nitrogen [Mass/Vol] 16 mg/dL 7-18 [facility] Thin prep Papanicolaou smear with manual screeningOrdered By: Valerie Garber on 09-15-2022 Thin prep Papanicolaou smear with manual screening 13 U/L 15-37 [facility] Thin prep Papanicolaou smear with manual screening 5 5-15 [facility] Serum or plasma calcium peyton urement (mass/volume)Ordered By: Ninfa Mejia on 08-18-2022 Calcium [Mass/Vol] 10.3 mg/dL 8.5-10.1 [facility] Color of specimen determinat ionOrdered By: Ninfa Mejia on 06-29-2022 Color (Unsp spec) Not Reportable [facility] Measurement of weight of sto neOrdered By: Ninfa Mejia on 06-29-2022 Weight (Stone) Not Reportable [facility] Origin of StoneOrdered By: Chava Mejia on 06-29-2022 Origin Nom (Stone) See comment [facility] Comment on above: TEST RESULT LIMITSSt one [...] separate coverComment: Physician questions regarding Calculi Analysis contactChildren[facility] at: [phone].Please note: Calculi report will follow via computer, mail or courierdelivery.Disclaimer: This test was developed and its performance characteristicsdetermined by [employer]. It has not been cleared or approvedby the Food and Drug Administration. TESTING PERFORMED AT [facility]. ORIGINAL REPORT ON FILE IN LAB CONTAINS ADDITIONAL TEST SITE INFORMATION. Size of stoneOrdered By: Rosa Mejia on 06-29-2022 Size (Stone) [Entitic vol] Not Reportable [facility] Basophil percentageOrdered B y: Dr. Mejia on 06-09-2022 Chloride [Moles/Vol] 108 mmol/L 98-107 [facility] Glucose [Mass/Vol] 130 mg/dL 74-106 [facility] Comment on above: Fasting Glucose resu lt greater than or equal to 126 mg/dL suggests DIABETES MELLITUS per A.D.A. criteria. Potassium [Moles/Vol] 4.1 mmol/L 3.5-5.1 [facility] Sodium [Moles/Vol] 137 mmol/L 136-145 [facility] WBC (Bld) [#/Vol] 11.0 10*3/uL 4.4-11.[address] [facility] Blood erythrocytes count (nu mber/volume)Ordered By: Dr. Mejia on 06-09-2022 RBC (Bld) [#/Vol] 4.74 10*6/uL 4.2-5.[address] [facility] Blood hemoglobin measurement (mass/volume)Ordered By: Dr. Mejia on 06-09-2022 Hemoglobin (Bld) [Mass/Vol] 14.3 g/dL 12.0-15.0 [facility] Blood platelet mean volumeOr dered By: Dr. Mejia on 06-09-2022 Platelet mean volume (Bld) [Entitic vol] 10.4 fL 6.2-12.0 [facility] Determination of erythrocyte mean corpuscular volume (MCV)Ordered By: Dr. Mejia on 06-09-2022 MCV (RBC) [Entitic vol] 92.0 fL 81-99 [facility] Hematocrit Auto (Bld) [Volum e fraction]Ordered By: Dr. Mejia on 06-09-2022 Hematocrit (Bld) [Volume fraction] 43.6 % 37-47 [facility] Laboratory - Chemistry and C hemistry - challengeOrdered By: Dr. Mejia on 06-09-2022 CO2 [Moles/Vol] 25.0 mmol/L 21.0-32.0 [facility] Urea nitrogen/Creatinine [Mass ratio] 17.2 mg/mg 10-20 [facility] Laboratory - Hematology and Cell countsOrdered By: Dr. Mejia on 06-09-2022 Erythrocyte distribution width (RBC) [Entitic vol] 45.9 fL 35.1-43.9 [facility] Erythrocyte distribution width (RBC) [Ratio] 13.4 % 11.6-14.6 [facility] MCH (RBC) [Entitic mass] 30.2 pg 27.0-32.0 [facility] MCHC Auto (RBC) [Mass/Vol]Or dered By: Dr. Mejia on 06-09-2022 MCHC (RBC) [Mass/Vol] 32.8 g/dL 32-36 [facility] No Panel InformationOrdered By: Dr. Mejia on 06-09-2022 Estimated GFR (MDRD) Amer 55 mL/min >60 [facility] Comment on above: GFR Calc Estimated GFR (MDRD) Non-Af Amer 46 mL/min >60 [facility] Comment on above: Non- GFR Calc Platelets bldOrdered By: Dr. Mejia on 06-09-2022 Platelets (Bld) [#/Vol] 173 10*3/uL 150-450 [facility] Serum or plasma calcium peyton urement (mass/volume)Ordered By: Dr. Mejia on 06-09-2022 Calcium [Mass/Vol] 9.8 mg/dL 8.5-10.1 [facility] Serum or plasma creatinine m easurement (mass/volume)Ordered By: Dr. Mejia on 06-09-2022 Creatinine [Mass/Vol] 1.22 mg/dL 0.55-1.02 [facility] Comment on above: The validity of the calculated GFR & GFRAA in patients over 70 years has not been determined. Clinical correlation is essential. Serum or plasma urea nitroge n measurement (mass/volume)Ordered By: Dr. Mejia on 06-09-2022 Urea nitrogen [Mass/Vol] 21 mg/dL 7-18 [facility] Thin prep Papanicolaou smear with manual screeningOrdered By: Dr. Mejia on 06-09-2022 Thin prep Papanicolaou smear with manual screening 4 5-15 [facility] Cytology report of Body flui d Cyto stainOrdered By: Dr. Mejia on 06-08-2022 Cytology report Cyto stain Doc (Body fld) SEE PATHOLOGY REPORT [facility] Comment on above: Specimen submitted t o Anatomical Pathology Department for testing. Basophil percentageOrdered B y: Dr. Mejia on 02-21-2022 Chloride [Moles/Vol] 104 mmol/L 98-107 [facility] Glucose [Mass/Vol] 148 mg/dL 74-106 [facility] Comment on above: Fasting Glucose resu lt greater than or equal to 126 mg/dL suggests DIABETES MELLITUS per A.D.A. criteria. Potassium [Moles/Vol] 4.4 mmol/L 3.5-5.1 [facility] Sodium [Moles/Vol] 138 mmol/L 136-145 [facility] Cytology report of Body flui d Cyto stainOrdered By: Dr. Mejia on 02-21-2022 Cytology report Cyto stain Doc (Body fld) SEE PATHOLOGY REPORT [facility] Comment on above: Specimen submitted t o Anatomical Pathology Department for testing. Laboratory - Chemistry and C hemistry - challengeOrdered By: Dr. Mejia on 02-21-2022 CO2 [Moles/Vol] 29.0 mmol/L 21.0-32.0 [facility] Urea nitrogen/Creatinine [Mass ratio] 14.5 mg/mg 12-08 [facility] No Panel InformationOrdered By: Dr. Mejia on 02-21-2022 Estimated GFR (MDRD) Amer 54 mL/min >60 [facility] Comment on above: GFR Calc Estimated GFR (MDRD) Non-Af Amer 45 mL/min >60 [facility] Comment on above: Non- GFR Calc Serum or plasma calcium peyton urement (mass/volume)Ordered By: Dr. Mejia on 02-21-2022 Calcium [Mass/Vol] 9.8 mg/dL 8.5-10.1 [facility] Serum or plasma creatinine m easurement (mass/volume)Ordered By: Dr. Mejia on 02-21-2022 Creatinine [Mass/Vol] 1.24 mg/dL 0.55-1.02 [facility] Comment on above: The validity of the calculated GFR & GFRAA in patients over 70 years has not been determined. Clinical correlation is essential. Serum or plasma urea nitroge n measurement (mass/volume)Ordered By: Dr. Mejia on 02-21-2022 Urea nitrogen [Mass/Vol] 18 mg/dL 7-18 [facility] Thin prep Papanicolaou smear with manual screeningOrdered By: Dr. Mejia on 02-21-2022 Thin prep Papanicolaou smear with manual screening 5 5-15 [facility] Culture, urineOrdered By: Dr Jayson Spencer on 01-22-2022 Bacteria identified Cx Nom (U) Positive [facility] Absolute lymphocyte counton 07-15-2021 Lymphocytes Auto (Unsp spec) [#/Vol] 0.72 10*3/uL 0.83-4.51 [facility] Work Phone: Basophil percentageon 2021 Basophils/100 WBC (Bld) 0.3 % 0-1 [facility] Work Phone: Bilirubin [Mass/Vol] 0.70 mg/dL 0.20-1.00 [facility] Work Phone: Comment on above: For patients on eltr ombopag therapy, use of Dimension Maryneal TBIL is not recommended. Chloride [Moles/Vol] 109 mmol/L 98-107 [facility] Work Phone: Eosinophils/100 WBC (Bld) 0.5 % 0-5 [facility] Work Phone: Glucose [Mass/Vol] 156 mg/dL 74-106 [facility] Work Phone: Comment on above: Fasting Glucose resu lt greater than or equal to 126 mg/dL suggests DIABETES MELLITUS per A.D.A. criteria. Neutrophils (Bld) [#/Vol] 6.0 10*3/uL 2.0-7.7 [facility] Work Phone: Neutrophils/100 WBC (Bld) 80.3 % 47-70 [facility] Work Phone: Potassium [Moles/Vol] 4.3 mmol/L 3.5-5.1 [facility] Work Phone: [phone] Comment on above: Slight Hemolysis, Re sult may be falsely increased. Protein [Mass/Vol] 6.7 g/dL 6.4-8.2 [facility] Work Phone: [phone] Sodium [Moles/Vol] 137 mmol/L 136-145 [facility] Work Phone: WBC (Bld) [#/Vol] 7.5 10*3/uL 4.4-11.0 [facility] Work Phone: Blood erythrocytes count (nu mber/volume)on 07-15-2021 RBC (Bld) [#/Vol] 4.47 10*6/uL 4.2-5.[address] [facility] Work Phone: [phone] Blood hemoglobin measurement (mass/volume)on 07-15-2021 Hemoglobin (Bld) [Mass/Vol] 13.3 g/dL 12.0-15.0 [facility] Work Phone: Blood lymphocytes/100 leukoc yteson 07-15-2021 Lymphocytes/100 WBC (Bld) 9.6 % 19-41 [facility] Work Phone: Blood monocytes/100 leukocyt eson 07-15-2021 Monocytes/100 WBC (Bld) 8.8 % 0-10 [facility] Work Phone: Blood platelet mean volumeon 07-15-2021 Platelet mean volume (Bld) [Entitic vol] 11.2 fL 6.2-12.0 [facility] Work Phone: Determination of erythrocyte mean corpuscular volume (MCV)on 07-15-2021 MCV (RBC) [Entitic vol] 90.4 fL 81-99 [facility] Work Phone: Hematocrit Auto (Bld) [Volum e fraction]on 07-15-2021 Hematocrit (Bld) [Volume fraction] 40.4 % 37-47 [facility] Work Phone: [phone] Laboratory - Chemistry and C hemistry - challengeon 07-15-2021 ALP [Catalytic activity/Vol] 94 U/L 45-117 [facility] Work Phone: ALT [Catalytic activity/Vol] 54 U/L 13-56 [facility] Work Phone: CO2 [Moles/Vol] 22.0 mmol/L 21.0-32.0 [facility] Work Phone: [phone] Globulin (S) [Mass/Vol] 3.4 g/dL 2.2-4.2 [facility] Work Phone: [phone] Lipase [Catalytic activity/Vol] 71 U/L 73-393 [facility] Work Phone: [phone] Urea nitrogen/Creatinine [Mass ratio] 11.6 mg/mg 10-20 [facility] Work Phone: Laboratory - Hematology and Cell countson 07-15-2021 Erythrocyte distribution width (RBC) [Entitic vol] 44.2 fL 35.1-43.9 [facility] Work Phone: [phone] Erythrocyte distribution width (RBC) [Ratio] 13.5 % 11.6-14.6 [facility] Work Phone: [phone] Immature granulocytes/100 WBC (Bld) 0.500 % 0.0-0.9 [facility] Work Phone: [phone] Comment on above: IG% - Immature Granu locytes (promyelocytes, myelocytes and metamyelocytes) > 1% indicates that a LEFT SHIFT is Present. MCH (RBC) [Entitic mass] 29.8 pg 27.0-32.0 [facility] Work Phone: [phone] Nucleated RBC/100 WBC (Bld) [Ratio] 0 % 0-5 [facility] Work Phone: [phone] Laboratory - Microbiology an d Antimicrobial susceptibilityon 07-15-2021 SARS-CoV-2 (COVID-19) RNA MICHAEL+probe Ql (Unsp spec) Detected [facility] Work Phone: [phone] MCHC Auto (RBC) [Mass/Vol]on 07-15-2021 MCHC (RBC) [Mass/Vol] 32.9 g/dL 32-36 [facility] Work Phone: No Panel Informationon 07-15 Estimated Creatinine Clearance Calc 38.05 ml/min [facility] Work Phone: Estimated GFR (MDRD) Amer 61 mL/min >60 [facility] Work Phone: Comment on above: GFR Calc Estimated GFR (MDRD) Non-Af Amer 51 mL/min >60 [facility] Work Phone: Comment on above: Non- GFR Calc Influenza Types A,B Rapid (Clinic) Not detected [facility] Work Phone: Platelets bldon 07-15-2021 Platelets (Bld) [#/Vol] 141 10*3/uL 150-450 [facility] Work Phone: Serum or plasma albumin peyton urement (mass/volume)on 07-15-2021 Albumin [Mass/Vol] 3.3 g/dL 3.2-5.0 [facility] Work Phone: Serum or plasma albumin/glob ulin mass ratioon 07-15-2021 Albumin/Globulin [Mass ratio] 1.0 {ratio} 0.9-2.4 [facility] Work Phone: Serum or plasma calcium peyton urement (mass/volume)on 07-15-2021 Calcium [Mass/Vol] 9.2 mg/dL 8.5-10.1 [facility] Work Phone: Serum or plasma creatinine m easurement (mass/volume)on 07-15-2021 Creatinine [Mass/Vol] 1.12 mg/dL 0.55-1.02 [facility] Work Phone: Comment on above: The validity of the calculated GFR & GFRAA in patients over 70 years has not been determined. Clinical correlation is essential. Serum or plasma urea nitroge n measurement (mass/volume)on 07-15-2021 Urea nitrogen [Mass/Vol] 13 mg/dL 7-18 [facility] Work Phone: Thin prep Papanicolaou smear with manual screeningon 07-15-2021 Thin prep Papanicolaou smear with manual screening 38 U/L 15-37 [facility] Work Phone: Comment on above: Slight Hemolysis, Re sult may be falsely increased. Thin prep Papanicolaou smear with manual screening 6 5-15 [facility] Work Phone: CNOVon 11-16-2020 CNOV Office Visit (UCWSTR ) SHIRLEY SHULTZ ([id number]) 1945 F Date Time Provider Department 11/16/20 10:45 AM JOHANA KNIGHT [facility] During your visit today, we recorded [...] in t (more content not included)... Normal [facility] Wound Culture/Stainon 2020 Wound Culture/Stain Smear Result - Test sent to [facility]. Account Credited Culture Result - Test sent to [facility]. Account Credited Normal [facility] Office Visit: [place] 12-30-19 17 Dietary management education, guidance, and counseling (procedure) yes Invalid Interpretation Code [employer] Work Phone: Documentation of current medications (procedure) Done Invalid Interpretation Code [employer] Work Phone: Fall risk assessment No Invalid Interpretation Code [employer] Work Phone: Chart Maintenanceon 07-01-19 17 Left ventricular Ejection fraction 60 % Invalid Interpretation Code [employer] Work Phone: Office Visiton 06-30-2016 Dietary management education, guidance, and counseling (procedure) yes Invalid Interpretation Code [employer] Work Phone: Documentation of current medications (procedure) Done Invalid Interpretation Code [employer] [facility] Phone: [phone] Fall risk assessment No Invalid Interpretation Code [employer] Work Phone: [phone] Protein mass conc Done [employer] Work Phone: [phone] Replaced Document: Sultana Morataya 06-30-2016 BUN (urea nitrogen) Sinus Bradycardia -F irst degree A-V block Mima = 248-RSR(V1) -possible incomplete right bundle branch block and anterior fascicular block. ABNORMAL Invalid Interpretation Code [employer] [facility] Phone: [phone] EKG QRS axis -39 deg Invalid Interpretation Code [facility] Phone: [phone] GE use only - for [employer] import when terms are not otherwise specified 405 ms Invalid Interpretation Code [facility] Phone: [phone] Interpretation Sinus Bradycardia -F irst degree A-V block Mima = 248-RSR(V1) -possible incomplete right bundle branch block and anterior fascicular block. ABNORMAL [facility] Phone: P Seymour 72 deg Invalid Interpretation Code [facility] Phone: [phone] P wave axis, electrocardiogram 72 deg Invalid Interpretation Code [facility] Phone: NV Interval 248 ms Invalid Interpretation Code [facility] Phone: NV interval, electrocardiogram 248 ms Invalid Interpretation Code [facility] Phone: Pulse (Heart Rate) 57 /min Invalid Interpretation Code [facility] Phone: QRS axis, electrocardiogram -39 deg Invalid Interpretation Code [facility] Phone: QRS Duration 104 ms Invalid Interpretation Code [facility] Phone: QRS duration, electrocardiogram 104 ms Invalid Interpretation Code [facility] Phone: QT Interval new path ms Invalid Interpretation Code [facility] Phone: QT interval, electrocardiogram new path ms Invalid Interpretation Code [facility] Phone: QTc Schmidt 405 ms Invalid Interpretation Code [facility] Phone: [phone] T Seymour 47 deg Invalid Interpretation Code [facility] Phone: [phone] T wave axis, electrocardiogram 47 deg Invalid Interpretation Code [facility] Phone: [phone] Office Visiton 12-28-2015 Documentation of current medications (procedure) Done Invalid Interpretation Code [employer] [facility] Phone: [phone] Office Visiton 09-20-2015 Dietary management education, guidance, and counseling (procedure) yes Invalid Interpretation Code [facility] Phone: [phone] Tobacco smoking status NHIS Never Invalid Interpretation Code [facility] Phone: [phone] Tobacco smoking status NHIS Never smoker [employer] Phone: [phone] Tobacco use [facility] Never smoker Invalid Interpretation Code [employer] [facility] Phone: [phone] Office Visiton 11-19-2014 General cardiovascular disease 10Y risk [#] Jasper.Marylou'Agostbrendon 9 % Invalid Interpretation Code [employer] [facility] Phone: [phone] Replaced Document: Sultana Patterson [facility] Observationson 11-19-2014 electrocardiogram interpretation Sinus Rhythm -First degree A-V block Mima = 230- Negative precordial T-waves. BORDERLINE RHYTHM Invalid Interpretation Code [employer] [facility] Phone: [phone] GE use only - for [employer] import when terms are not otherwise specified 411 ms Invalid Interpretation Code [facility] Phone: [phone] P wave axis, electrocardiogram 59 deg Invalid Interpretation Code [facility] Phone: [phone] NV interval, electrocardiogram 230 ms Invalid Interpretation Code [facility] Phone: [phone] Pulse (Heart Rate) 63 /min Invalid Interpretation Code [facility] Phone: [phone] QRS axis, electrocardiogram -33 deg Invalid Interpretation Code [facility] Phone: [phone] QRS duration, electrocardiogram 101 ms Invalid Interpretation Code [facility] Phone: [phone] QT interval, electrocardiogram new path ms Invalid Interpretation Code [facility] Phone: [phone] T wave axis, electrocardiogram 30 deg Invalid Interpretation Code [employer] [facility] Phone: [phone] Clinical Lists Update: 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 07-01-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 Alanine aminotransferase (ALT) 27 U/L Invalid Interpretation Code [employer] Work Phone: [phone] Albumin 3.3 g/dL Low [employer] Work Phone: [phone] Alkaline phosphatase (ALP) 83 U/L Invalid Interpretation Code [employer] Work Phone: [phone] ALP enzyme act/vol (Bld) 83 U/L [employer] Work Phone: [phone] Anion gap 7 mmol/L Invalid Interpretation Code [employer] Work Phone: [phone] Anion gap molar conc 7 mmol/L [facility] Work Phone: [phone] Aspartate aminotransferase (AST) 19 U/L Invalid Interpretation Code [employer] Work Phone: [phone] Bilirubin (total) 0.60 mg/dL Invalid Interpretation Code [employer] Work Phone: [phone] BUN/Creatinine Ratio 8.9 mg/mg Low [facility] Work Phone: [phone] Calcium 8.4 mg/dL Invalid Interpretation Code [employer] Work Phone: [phone] Chloride 108 mmol/L High [employer] Work Phone: [phone] Cholesterol 143 mg/dL Invalid Interpretation Code [employer] Work Phone: [phone] CO2 24 mmol/L Invalid Interpretation Code [employer] Work Phone: [phone] CO2 ppres (BldV) 24 mmol/L [employer] [facility] Work Phone: [phone] Creatinine 0.9 mg/dL Invalid Interpretation Code [employer] Work Phone: [phone] Erythrocytes (RBC) 5.00 10*6/uL Invalid Interpretation Code [employer] [facility] Work [phone] Glucose 120 mg/dL High [employer] [facility] Work Phone: [phone] Glucose mass conc 120 mg/dL High [employer] [facility] Work Phone: [phone] HDL Cholesterol 25 mg/dL Low [employer] [facility] Work [phone] Hematocrit (HCT) 42.2 % Invalid Interpretation Code [facility] Work Phone: [phone] Hematocrit Volume Fraction (Bld) 42.2 % [facility] Work Phone: [phone] Hemoglobin (HGB) 14.4 g/dL Invalid Interpretation Code [facility] Work Phone: [phone] LDL Cholesterol 86 mg/dL Invalid Interpretation Code [facility] Work Phone: [phone] Magnesium 2.0 mg/dL Invalid Interpretation Code [facility] Work Phone: [phone] Platelets 144 10*3/mm3 Low [facility] Work Phone: [phone] Platelets #/vol (Bld) 144 10*3/mm3 Low [facility] Work Phone: [phone] Potassium 3.4 mmol/L Low [facility] Work Phone: [phone] Protein 6.5 g/dL Invalid Interpretation Code [employer] Work Phone: [phone] RBC #/vol (Bld) 5.00 10*6/uL [facility] Work Phone: [phone] Sodium 139 mmol/L Invalid Interpretation Code [facility] Work Phone: [phone] Triglyceride 159 mg/dL Invalid Interpretation Code [facility] Work Phone: [phone] Urea nitrogen 8 mg/dL Invalid Interpretation Code [facility] Work Phone: [phone] WBC #/vol (Bld) 7.8 10*3/uL [facility] Work Phone: [phone] WBC (Leukocytes) 7.8 10*3/uL Invalid Interpretation Code [facility] Work Phone: [phone] Clinical Lists Update: 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 clerk 06-30-2014 BNP 297.7 pg/mL Invalid Interpretation Code [facility] Work Phone: [phone] Thyroid stimulating hormone (TSH) 2.74 u[iU]/mL Invalid Interpretation Code [facility] Work Phone: [phone] External Other: Preferred Me thod of Contacton 04-16-2014 methcontact secmsg Invalid Interpretation Code [facility] Work Phone: [phone] Patient's prefered method of contact secmsg Invalid Interpretation Code [facility] Work Phone: [phone] Office Visit: [facility] 04-16-19 15 cardiac risk group B Invalid Interpretation Code [facility] Work Phone: [phone] Lab Report: Ordered by Dr. Da watkins 07-21-2013 Cholesterol to HDL Ratio 4.6 {ratio} Invalid Interpretation Code [facility] Work Phone: [phone] Lab Report: LIPIDon 11-12-19 13 very low density lipoproteins 42 mg/dL High 5-40 [facility] Work Phone: [phone] Lab Report: LIVERon 11-12-19 13 Bilirubin (direct) 0.13 mg/dL Normal 0.00-0.30 [facility] Work Phone: [phone] Clinical Lists Update: 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 clerk 04-26-2010 eGFR (non-black) mL/min/{1.73_m2} Invalid Interpretation Code [facility] Work Phone: [phone] Globulin 3.0 g/dL Invalid Interpretation Code [facility] Work Phone: [phone] Globulin mass conc (S) 3.0 g/dL [facility] Work Phone: [phone] Office Visiton 08-19-2001 Colonoscopy (procedure) Unknown Invalid Interpretation Code [facility] Work Phone: [phone] Protein mass conc Unknown [facility] Work Phone: [phone] Culture, urine Bacteria identified Cx Nom (U) Positive [facility] Work Phone: Vital Signs Date Time Vital Sign Value Performing Clinician Faci lity 10-23-2024 08:14-0400 Body height 160.[address] Bria Spencer MD Work Phone: [facility] 10-23-2024 08:14-0400 Body mass index (BMI) [Ratio] 33.6 kg/m2 Dr. Bira Spencer MD Work Phone: [facility] 10-23-2024 08:14-0400 Body temperature 98 [degF] Dr. Bria Spencer MD Work Phone: [facility] 10-23-2024 08:14-0400 Body weight 86.[address] Bria Spencer MD Work Phone: [facility] 10-23-2024 08:14-0400 Diastolic blood pressure 90 mm[Hg] Dr. Bria Spencer MD Work Phone: [facility] 10-23-2024 08:14-0400 Heart rate 80 /min Dr. Bria Spencer MD Work Phone: [facility] 10-23-2024 08:14-0400 Respiratory rate 16 /min Dr. Bria Spencer MD Work Phone: [facility] 10-23-2024 08:14-0400 SaO2% (BldA) [Mass fraction] 97 % Dr. Bria Spencer MD Work Phone: [facility] 10-23-2024 08:14-0400 Systolic blood pressure 133 mm[Hg] Dr. Bria Spencer MD Work Phone: [facility] 09-30-2024 10:08-0400 Body height 160.[address] Bria Spencer MD Work Phone: [facility] 09-30-2024 10:08-0400 Body mass index (BMI) [Ratio] 33.3 kg/m2 Dr. Bria Spencer MD Work Phone: [facility] 09-30-2024 10:08-0400 Body weight 85.[address] Bria Spencer MD Work Phone: [facility] 09-30-2024 10:08-0400 Diastolic blood pressure 79 mm[Hg] Dr. Bria Spencer MD Work Phone: [facility] 09-30-2024 10:08-0400 Heart rate 78 /min Dr. Bria Spencer MD Work Phone: [facility] 09-30-2024 10:08-0400 Respiratory rate 16 /min Dr. Bria Spencer MD Work Phone: [facility] 09-30-2024 10:08-0400 Systolic blood pressure 133 mm[Hg] Dr. Bria Spencer MD Work Phone: [facility] 07-17-2024 09:39-0400 Body height 160.[address] Bria Spencer MD Work Phone: [facility] 07-17-2024 09:39-0400 Body mass index (BMI) [Ratio] 34.8 kg/m2 Dr. Bria Spencer MD Work Phone: [facility] 07-17-2024 09:39-0400 Body weight 89.[address] Bria Spencer MD Work Phone: [facility] 07-17-2024 09:39-0400 Diastolic blood pressure 76 mm[Hg] Dr. Bria Spencer MD Work Phone: [facility] 07-17-2024 09:39-0400 Heart rate 66 /min Dr. Bria Spencer MD Work Phone: [facility] 07-17-2024 09:39-0400 Respiratory rate 16 /min Dr. Bria Spencer MD Work Phone: [facility] 07-17-2024 09:39-0400 SaO2% (BldA) [Mass fraction] 97 % Dr. Bria Spencer MD Work Phone: [facility] 07-17-2024 09:39-0400 Systolic blood pressure 116 mm[Hg] Dr. Bria Spencer MD Work Phone: [facility] 05-15-2024 10:36-0400 Body height 160.[address] Bria Spencer MD Work Phone: [facility] 05-15-2024 10:36-0400 Body mass index (BMI) [Ratio] 34.6 kg/m2 Dr. Bria Spencer MD Work Phone: [facility] 05-15-2024 10:36-0400 Body weight 88.[address] Bria Spencer MD Work Phone: [facility] 05-15-2024 10:36-0400 Diastolic blood pressure 72 mm[Hg] Dr. Bria Spencer MD Work Phone: [facility] 05-15-2024 10:36-0400 Heart rate 61 /min Dr. Bria Spencer MD Work Phone: [facility] 05-15-2024 10:36-0400 Respiratory rate 16 /min Dr. Bria Spencer MD Work Phone: [facility] 05-15-2024 10:36-0400 SaO2% (BldA) [Mass fraction] 95 % Dr. Bria Spencer MD Work Phone: [facility] 05-15-2024 10:36-0400 Systolic blood pressure 110 mm[Hg] Dr. Bria Spencer MD Work Phone: [facility] 09-05-2023 14:29-0400 Body height 160 cm Ita Garcia MD Work Phone: [facility] 09-05-2023 14:29-0400 Body mass index (BMI) [Ratio] 36.6 kg/m2 Ita Garcia MD Work Phone: [facility] 09-05-2023 14:29-0400 Body weight 93.71 kg Ita Garcia MD Work Phone: [facility] 09-05-2023 14:29-0400 Diastolic blood pressure 82 mm[Hg] Ita Garcia MD Work Phone: [facility] 09-05-2023 14:29-0400 Heart rate 60 /min Ita Garcia MD Work Phone: [facility] 09-05-2023 14:29-0400 Systolic blood pressure 129 mm[Hg] Ita Garcia MD Work Phone: [facility] 06-22-2023 08:20-0400 Diastolic blood pressure 71 mm[Hg] Dr. Bria Spencer Work Phone: [facility] 06-22-2023 08:20-0400 Systolic blood pressure 122 mm[Hg] Dr. Bria Spencer Work Phone: [facility] 06-22-2023 08:18-0400 Body temperature 96.9 [degF] Dr. Bria Spencer Work Phone: [facility] 06-22-2023 08:18-0400 Heart rate 62 /min Dr. Bria Spencer Work Phone: [facility] 06-22-2023 08:18-0400 Respiratory rate 16 /min Dr. Bria Spencer Work Phone: [facility] 06-22-2023 08:18-0400 SaO2% (BldA) [Mass fraction] 100 % Dr. Bria Spencer Work Phone: [facility] 06-12-2023 08:09-0400 Body temperature 98 [degF] Dr. Bria Spencer Work Phone: [facility] 06-12-2023 08:09-0400 Diastolic blood pressure 66 mm[Hg] Dr. Bria Spencer Work Phone: [facility] 06-12-2023 08:09-0400 Heart rate 80 /min Dr. Bria Spencer Work Phone: [facility] 06-12-2023 08:09-0400 Respiratory rate 16 /min Dr. Bria Spencer Work Phone: [facility] 06-12-2023 08:09-0400 SaO2% (BldA) [Mass fraction] 97 % Dr. Bria Spencer Work Phone: [facility] 06-12-2023 08:09-0400 Systolic blood pressure 110 mm[Hg] Dr. Bria Spencer Work Phone: [facility] 06-12-2023 06:53-0400 Body height 162.[address] Bria Spencer Work Phone: [facility] 06-12-2023 06:53-0400 Body mass index (BMI) [Ratio] 33.6 kg/m2 Dr. Bria Spencer Work Phone: [facility] 06-12-2023 06:53-0400 Body weight 88.[address] Bria Spencer Work Phone: [facility] 05-21-2023 08:30-0400 Body mass index (BMI) [Ratio] 34.7 kg/m2 Dr. Bria Spencer Work Phone: [facility] 05-21-2023 08:30-0400 Body weight 91.[address] Bria Spencer Work Phone: [facility] 05-21-2023 08:30-0400 Diastolic blood pressure 68 mm[Hg] Dr. Bria Spencer Work Phone: [facility] 05-21-2023 08:30-0400 Respiratory rate 16 /min Dr. Bria Spencer Work Phone: [facility] 05-21-2023 08:30-0400 Systolic blood pressure 98 mm[Hg] Dr. Bria Spencer Work Phone: [facility] 04-04-2023 21:29-0500 Body temperature 98 [degF] Dr. Bria Spencer Work Phone: [facility] 04-04-2023 21:29-0500 Diastolic blood pressure 93 mm[Hg] Dr. Bria Spencer Work Phone: [facility] 04-04-2023 21:29-0500 Heart rate 90 /min Dr. Bria Spencer Work Phone: [facility] 04-04-2023 21:29-0500 Respiratory rate 18 /min Dr. Bria Spencer Work Phone: [facility] 04-04-2023 21:29-0500 SaO2% (BldA) [Mass fraction] 97 % Dr. Bria Spencer Work Phone: [facility] 04-04-2023 21:29-0500 Systolic blood pressure 127 mm[Hg] Dr. Bria Spencer Work Phone: [facility] 04-04-2023 16:38-0500 Body height 162.[address] Bria Spencer Work Phone: [facility] 03-08-2023 14:17-0500 Body temperature 98.1 [degF] Dr. Bria Spencer Work Phone: [facility] 03-08-2023 14:17-0500 Diastolic blood pressure 74 mm[Hg] Dr. Bria pSencer Work Phone: [facility] 03-08-2023 14:17-0500 Heart rate 55 /min Dr. Bria Spencer Work Phone: [facility] 03-08-2023 14:17-0500 Respiratory rate 18 /min Dr. Bria Spencer Work Phone: [facility] 03-08-2023 14:17-0500 SaO2% (BldA) [Mass fraction] 97 % Dr. Bria Spencer Work Phone: [facility] 03-08-2023 14:17-0500 Systolic blood pressure 114 mm[Hg] Dr. Bria Spencer Work Phone: [facility] 03-08-2023 06:31-0500 Body height 162.[address] Bria Spencer Work Phone: [facility] 03-08-2023 06:31-0500 Body mass index (BMI) [Ratio] 36.5 kg/m2 Dr. Bria Spencer Work Phone: [facility] 03-08-2023 06:31-0500 Body weight 96.[address] Bria Spencer Work Phone: [facility] 02-27-2023 08:06-0500 Body mass index (BMI) [Ratio] 36.6 kg/m2 Dr. Bria Spencer Work Phone: [facility] 02-27-2023 08:06-0500 Body temperature 97.2 [degF] Dr. Bria Spencer Work Phone: [facility] 02-27-2023 08:06-0500 Body weight 96.[address] Bria Spencer Work Phone: [facility] 02-27-2023 08:06-0500 Diastolic blood pressure 73 mm[Hg] Dr. Bria Spencer Work Phone: [facility] 02-27-2023 08:06-0500 Heart rate 60 /min Dr. Bria Spencer Work Phone: [facility] 02-27-2023 08:06-0500 Respiratory rate 17 /min Dr. Bria Spencer Work Phone: [facility] 02-27-2023 08:06-0500 SaO2% (BldA) [Mass fraction] 96 % Dr. Bria Spencer Work Phone: [facility] 02-27-2023 08:06-0500 Systolic blood pressure 110 mm[Hg] Dr. Bria Spencer Work Phone: [facility] 12-20-2022 14:56-0400 Body height 162.[address] Bria Spencer Work Phone: [facility] 12-20-2022 14:56-0400 Body mass index (BMI) [Ratio] 37.4 kg/m2 Dr. Bria Spencer Work Phone: [facility] 12-20-2022 14:56-0400 Body weight 98.[address] Bria Spencer Work Phone: [facility] 12-20-2022 14:56-0400 Diastolic blood pressure 70 mm[Hg] Dr. Bria Spencer Work Phone: [facility] 12-20-2022 14:56-0400 Heart rate 67 /min Dr. Bria Spencer Work Phone: [facility] 12-20-2022 14:56-0400 Respiratory rate 17 /min Dr. Bria Spencer Work Phone: [facility] 12-20-2022 14:56-0400 SaO2% (BldA) [Mass fraction] 97 % Dr. Bria Spencer Work Phone: [facility] 12-20-2022 14:56-0400 Systolic blood pressure 117 mm[Hg] Dr. Bria Spencer Work Phone: [facility] 12-11-2022 09:04-0400 Body height 160.[address] Rui Rea [facility] 12-11-2022 09:04-0400 Body weight 100.[address] Rui Rea [facility] 08-24-2022 10:38-0400 Body weight 100.[address] Rui Rea Work Phone: [facility] 08-24-2022 10:38-0400 Diastolic blood pressure 83 mm[Hg] Dr. Rui Rea Work Phone: [facility] 08-24-2022 10:38-0400 Heart rate 61 /min Dr. Rui Rea Work Phone: [facility] 08-24-2022 10:38-0400 Respiratory rate 20 /min Dr. Rui Rea Work Phone: [facility] 08-24-2022 10:38-0400 Systolic blood pressure 128 mm[Hg] Dr. Rui Rea Work Phone: [facility] 08-24-2022 08:41-0400 Body height 160.[address] Rui Rea Work Phone: [facility] 07-12-2022 08:27-0400 Body height 160.[address] Reynaldo Thapa Work Phone: [facility] 07-12-2022 08:19-0400 Body mass index (BMI) [Ratio] 39.4 kg/m2 Dr. Reynaldo Thapa Work Phone: [facility] 07-12-2022 08:19-0400 Body weight 101.[address] Reynaldo Thapa Work Phone: [facility] 07-12-2022 08:19-0400 Diastolic blood pressure 72 mm[Hg] Dr. Reynaldo Thapa Work Phone: [facility] 07-12-2022 08:19-0400 Systolic blood pressure 120 mm[Hg] Dr. Reynaldo Thapa Work Phone: [facility] 06-29-2022 11:00-0400 Body temperature 97.2 [degF] Dr. Reynaldo Thapa Work Phone: [facility] 06-29-2022 11:00-0400 Diastolic blood pressure 75 mm[Hg] Dr. Reynaldo Thapa Work Phone: [facility] 06-29-2022 11:00-0400 Heart rate 60 /min Dr. Reynaldo Thapa Work Phone: [facility] 06-29-2022 11:00-0400 Respiratory rate 16 /min Dr. Reynaldo Thapa Work Phone: [facility] 06-29-2022 11:00-0400 SaO2% (BldA) [Mass fraction] 96 % Dr. Reynaldo Thapa Work Phone: [facility] 06-29-2022 11:00-0400 Systolic blood pressure 145 mm[Hg] Dr. Reynaldo Thapa Work Phone: [facility] 06-29-2022 10:30-0400 Inhaled oxygen flow rate 2 L/min Dr. Reynaldo Thapa Work Phone: [facility] 06-29-2022 08:03-0400 Body height 160.[address] Reynaldo Thapa Work Phone: [facility] 06-29-2022 08:03-0400 Body mass index (BMI) [Ratio] 39.5 kg/m2 Dr. Reynaldo Thapa Work Phone: [facility] 06-29-2022 08:03-0400 Body weight 101.[address] Reynaldo Thapa Work Phone: [facility] 06-08-2022 12:12-0400 Body temperature 97.7 [degF] Dr. Reynaldo Thapa Work Phone: [facility] 06-08-2022 12:12-0400 Diastolic blood pressure 57 mm[Hg] Dr. Reynaldo Thapa Work Phone: [facility] 06-08-2022 12:12-0400 Heart rate 72 /min Dr. Reynaldo Thapa Work Phone: [facility] 06-08-2022 12:12-0400 Respiratory rate 18 /min Dr. Reynaldo Thapa Work Phone: [facility] 06-08-2022 12:12-0400 SaO2% (BldA) [Mass fraction] 94 % Dr. Reynaldo Thapa Work Phone: [facility] 06-08-2022 12:12-0400 Systolic blood pressure 116 mm[Hg] Dr. Reynaldo Thapa Work Phone: [facility] 06-08-2022 07:50-0400 Body height 160.[address] Reynaldo Thapa Work Phone: [facility] 06-08-2022 07:50-0400 Body mass index (BMI) [Ratio] 39.4 kg/m2 Dr. Reynaldo Thapa Work Phone: [facility] 06-08-2022 07:50-0400 Body weight [address] Reynaldo Thapa Work Phone: [facility] 02-02-2022 08:33-0500 Body height 162.[address] Rui Rea Work Phone: [facility] 02-02-2022 08:33-0500 Body mass index (BMI) [Ratio] 37.5 kg/m2 Dr. Rui Rea Work Phone: [facility] 02-02-2022 08:33-0500 Body weight 99.[address] Rui Rea Work Phone: [facility] 02-02-2022 08:33-0500 Diastolic blood pressure 81 mm[Hg] Dr. Rui Rea Work Phone: [facility] 02-02-2022 08:33-0500 Heart rate 69 /min Dr. Rui Rea Work Phone: [facility] 02-02-2022 08:33-0500 Respiratory rate 20 /min Dr. Rui Rea Work Phone: [facility] 02-02-2022 08:33-0500 SaO2% (BldA) [Mass fraction] 97 % Dr. Rui Rea Work Phone: [facility] 02-02-2022 08:33-0500 Systolic blood pressure 117 mm[Hg] Dr. Rui Rea Work Phone: [facility] 08-19-2022 11:32-0400 Diastolic blood pressure 75 mm[Hg] Dr. Rui Rea Work Phone: [facility] Work Phone: 10-07-2021 11:32-0400 Heart rate 60 /min Dr. Rui Rea Work Phone: [facility] Work Phone: 10-07-2021 11:32-0400 Respiratory rate 18 /min Dr. Rui Rea Work Phone: [facility] Work Phone: 10-07-2021 11:32-0400 SaO2% (BldA) [Mass fraction] 97 % Dr. Rui Rea Work Phone: [facility] Work Phone: 10-07-2021 11:32-0400 Systolic blood pressure 141 mm[Hg] Dr. Rui Rea Work Phone: [facility] Work Phone: 10-07-2021 09:53-0400 Body height 162.[address] Rui Rea Work Phone: [facility] Work Phone: 10-07-2021 09:53-0400 Body mass index (BMI) [Ratio] 38.5 kg/m2 Dr. Rui Rea Work Phone: [facility] Work Phone: 10-07-2021 09:53-0400 Body temperature 98.2 [degF] Dr. Rui Rea Work Phone: [facility] Work Phone: 10-07-2021 09:53-0400 Body weight 102.[address] Rui Rea Work Phone: [facility] Work Phone: 08-09-2021 13:36-0400 Body mass index (BMI) [Ratio] 37.2 kg/m2 Dr. Rui Rea Work Phone: [facility] Work Phone: 08-09-2021 13:36-0400 Body weight 98.[address] Rui Rea Work Phone: [facility] Work Phone: 08-09-2021 13:36-0400 Diastolic blood pressure 76 mm[Hg] Dr. Rui Rea Work Phone: [facility] Work Phone: 08-09-2021 13:36-0400 Heart rate 60 /min Dr. Rui Rea Work Phone: [facility] Work Phone: 08-09-2021 13:36-0400 Respiratory rate 18 /min Dr. Rui Rea Work Phone: [facility] Work Phone: 08-09-2021 13:36-0400 Systolic blood pressure 146 mm[Hg] Dr. Rui Rea Work Phone: [facility] Work Phone: 07-16-2021 00:37-0400 Diastolic blood pressure 114 mm[Hg] Dr. Rui Rea Work Phone: [facility] Work Phone: 07-16-2021 00:37-0400 Heart rate 157 /min Dr. Rui Rea Work Phone: [facility] Work Phone: 07-16-2021 00:37-0400 Systolic blood pressure 135 mm[Hg] Dr. Rui Rea Work Phone: [facility] Work Phone: 07-15-2021 22:36-0400 Body temperature 96.8 [degF] Dr. Rui Rea Work Phone: [facility] Work Phone: 07-15-2021 22:36-0400 Respiratory rate 17 /min Dr. Rui Rea Work Phone: [facility] Work Phone: 07-15-2021 22:36-0400 SaO2% (BldA) [Mass fraction] 95 % Dr. Rui Rea Work Phone: [facility] Work Phone: 07-15-2021 22:34-0400 Body height 162.[address] Rui Rea Work Phone: [facility] Work Phone: 07-15-2021 22:34-0400 Body mass index (BMI) [Ratio] 38.7 kg/m2 Dr. Rui Rea Work Phone: [facility] Work Phone: 07-15-2021 22:34-0400 Body weight 102.[address] Rui Rea Work Phone: [facility] Work Phone: 07-15-2021 15:52-0400 Body temperature 98.3 [degF] Dr. Rui Rea Work Phone: [facility] Work Phone: 07-15-2021 15:52-0400 Diastolic blood pressure 70 mm[Hg] Dr. Rui Rea Work Phone: [facility] Work Phone: 07-15-2021 15:52-0400 Heart rate 89 /min Dr. Rui Rea Work Phone: [facility] Work Phone: 07-15-2021 15:52-0400 Respiratory rate 17 /min Dr. Rui Rea Work Phone: [facility] Work Phone: 07-15-2021 15:52-0400 SaO2% (BldA) [Mass fraction] 94 % Dr. Rui Rea Work Phone: [facility] Work Phone: 07-15-2021 15:52-0400 Systolic blood pressure 120 mm[Hg] Dr. Rui Rea Work Phone: [facility] Work Phone: 07-15-2021 15:52-0400 Body temperature 98.3 [degF] Dr. Rui Rea Work Phone: [facility] Work Phone: 07-15-2021 15:52-0400 Diastolic blood pressure 70 mm[Hg] Dr. Rui Rea Work Phone: [facility] Work Phone: 07-15-2021 15:52-0400 Heart rate 89 /min Dr. Rui Rea Work Phone: [facility] Work Phone: 07-15-2021 15:52-0400 Respiratory rate 17 /min Dr. Rui Rea Work Phone: [facility] Work Phone: 07-15-2021 15:52-0400 SaO2% (BldA) [Mass fraction] 94 % Dr. Rui Rea Work Phone: [facility] Work Phone: 07-15-2021 15:52-0400 Systolic blood pressure 120 mm[Hg] Dr. Rui Rea Work Phone: [facility] Work Phone: 07-05-2021 08:32-0400 Body mass index (BMI) [Ratio] 37.4 kg/m2 Dr. Rui Rea Work Phone: [facility] Work Phone: 07-05-2021 08:32-0400 Body weight 98.[address] Rui Rea Work Phone: [facility] Work Phone: 07-05-2021 08:32-0400 Diastolic blood pressure 78 mm[Hg] Dr. Rui Rea Work Phone: [facility] Work Phone: 07-05-2021 08:32-0400 Systolic blood pressure 120 mm[Hg] Dr. Rui eRa Work Phone: [facility] Work Phone: 07-05-2021 08:32-0400 Body height 162.[address] Rui Rea Work Phone: [facility] Work Phone: 07-05-2021 08:32-0400 Body mass index (BMI) [Ratio] 37.4 kg/m2 Dr. Rui Rea Work Phone: [facility] Work Phone: 07-05-2021 08:32-0400 Body weight 98.[address] Rui Rea Work Phone: [facility] Work Phone: 07-05-2021 08:32-0400 Diastolic blood pressure 78 mm[Hg] Dr. Rui Rea Work Phone: [facility] Work Phone: 07-05-2021 08:32-0400 Systolic blood pressure 120 mm[Hg] Dr. Rui Rea Work Phone: [facility] Work Phone: 03-31-2021 09:11-0500 Body weight 97.[address] Rui Rea Work Phone: [facility] Work Phone: 03-31-2021 09:11-0500 Diastolic blood pressure 88 mm[Hg] Dr. Rui Rea Work Phone: [facility] Work Phone: 03-31-2021 09:11-0500 Heart rate 108 /min Dr. Rui Rea Work Phone: [facility] Work Phone: 03-31-2021 09:11-0500 Respiratory rate 16 /min Dr. Rui Rea Work Phone: [facility] Work Phone: 03-31-2021 09:11-0500 SaO2% (BldA) [Mass fraction] 95 % Dr. Rui Rea Work Phone: [facility] Work Phone: 03-31-2021 09:11-0500 Systolic blood pressure 121 mm[Hg] Dr. Rui Rea Work Phone: [facility] Work Phone: 06-22-2020 15:40-0400 Body mass index (BMI) [Ratio] 37.9 kg/m2 Dr. Rui Rea Work Phone: [facility] Work Phone: 12-29-2016 10:52-0500 BMI (Body [...] ambulatory Dr. Bria Spencer MD Work Phone: -[facility] Start: 11-24-2024 End: 11-24-[address] Reynaldo Thapa MD -[facility] Work Phone: Start: 11-12-2024 End: 11-12-[address] Bria Spencer MD Work Phone: -[facility] Start: 11-12-2024 End: 11-12-[address] Reynaldo Thapa MD -[facility] Work Phone: Start: 11-11-2024 ambulatory Bria Spencer Facility: [facility] Start: 11-11-2024 End: 11-11-[address] Bria Spencer MD Work Phone: -[facility] Start: 11-11-2024 End: 11-11-[address] Reynaldo Thapa MD -[facility] Work Phone: Start: 11-10-2024 End: 11-10-2024 Patient encounter procedure Anu Albright [facility] Work Phone: Start: 11-10-2024 End: 11-10-[address] Bria Spencer MD Work Phone: -[facility] Start: 10-23-2024 End: 10-23-2024 Patient encounter procedure Clarisse RAO -[facility] Work Phone: Start: 10-23-2024 End: 10-23-[address] Bria Spencer MD Work Phone: -[facility] Start: 10-09-2024 End: 10-09-[address] Bria Spencer MD Work Phone: [facility] Start: 10-09-2024 End: 10-09-[address] [facility] Start: 10-09-2024 End: 10-09-2024 ambulatory Bria Mibrianna Facility:[facility] Start: 09-30-2024 End: 09-30-[address] Bria Spencer MD Work Phone: -[facility] Start: 09-30-2024 End: 09-30-[address] Reynaldo Thapa MD -[facility] Work Phone: Start: 09-25-2024 ambulatory Bria Spencer Facility: [facility] Start: 09-17-2024 End: 09-17-[address] Bria Spencer MD Work Phone: -[facility] Start: 09-17-2024 End: 09-17-2024 Patient encounter procedure Anu Albright [facility] Work Phone: Start: 09-12-2024 Non-patient / Non-visit Dr. Stuart Thapa MD -[facility] Work Phone: Start: 09-12-2024 End: 09-12-[address] Bria Spencer MD Work Phone: -Pulmonary Services/Neurology Start: 09-12-2024 End: 09-12-2024 Patient encounter procedure Estuardo FRANKS -Pulmonary Services/Neurology Work Phone: Start: 09-12-2024 End: 09-12-2024 ambulatory Estuardo Garcia Facility:[facility] Start: 08-25-2024 End: 08-25-[address] Bria Spencer MD Work Phone: -[facility] Start: 08-25-2024 End: 08-25-[address] Reynaldo Thapa MD -[facility] Work Phone: Start: 08-19-2024 Non-patient / Non-visit Dr. Anam Mejia MD -[facility] Work Phone: Start: 07-18-2024 End: 07-18-[address] Bria Spencer MD Work Phone: [facility] Work Phone: Start: 07-18-2024 End: 07-18-[address] Bria Spencer MD -Laboratory Work Phone: Start: 07-17-2024 End: 07-17-2024 Patient encounter procedure Clarisse Walden EMBEDDER-C -[facility] Work Phone: Start: 07-17-2024 End: 07-18-[address] Bria Spencer MD Work Phone: [facility] Work Phone: Start: 07-17-2024 End: 07-17-2024 ambulatory Clarisse Walden Facility:[facility] Start: 07-07-2024 End: 07-07-[address] Bria Spencer MD Work Phone: [facility] Work Phone: Start: 07-07-2024 End: 07-07-2024 Patient encounter procedure Clarisse RAO -Radiology [facility] Work Phone: Start: 07-07-2024 End: 07-07-2024 ambulatory Clarisse Walden Facility:[facility] Start: 07-01-2024 End: 07-01-[address] Bria Spencer MD Work Phone: [facility] Work Phone: Start: 07-01-2024 End: 07-01-2024 Patient encounter procedure Clarisse RAO -Radiology [facility] Work Phone: Start: 07-01-2024 End: 07-01-2024 ambulatory Bria Spencer Facility:[facility] Start: 05-26-2024 End: 05-26-2024 ambulatory Bria Johanna Facility:[facility] Start: 05-26-2024 End: 05-26-[address] Reynaldo Thapa MD -[facility] Work Phone: Start: 05-15-2024 End: 05-15-2024 Patient encounter procedure Clarisse RAO -[facility] Work Phone: Start: 05-15-2024 End: 05-15-2024 ambulatory Bria Spencer Facility:[facility] Start: 03-07-2024 End: 03-07-[address] Bria Spencer MD -Radiology [place] Work Phone: Start: 03-07-2024 End: 03-07-2024 ambulatory Bria Spencer Facility:[facility] Start: 02-25-2024 End: 02-25-2024 ambulatory Bria Spencer Facility:[facility] Start: 09-05-2023 End: 09-05-2023 Patient encounter procedure Ita Garcia MD Work Phone: [facility] Comment on above: Esophagogastric [...] Start: 09-05-2023 End: 09-05-2023 ambulatory RUI REA Facility:[facility] Start: 09-04-2023 Telephone encounter Ita perez MD Work Phone: [facility] Comment on above: Appointment Start: 06-22-2023 End: 06-22-2023 Admission to same day surgery center Dr. Bria Spnecer Work Phone: [facility]-Endoscopy Work Phone: Start: 06-22-2023 End: 06-22-[address] Bria Spencer Work Phone: [facility] Work Phone: Start: 06-12-2023 Non-patient / Non-visit Dr. Sebastián Spencer Work Phone: [facility] Start: 06-12-2023 End: 06-12-2023 Admission to same day surgery center Dr. Bria Spencer Work Phone: [facility]-Endoscopy Work Phone: Start: 06-12-2023 End: 06-12-[address] Bria Spencer Work Phone: [facility] Work Phone: Start: 05-28-2023 End: 05-28-[address] Bria Spencer Work Phone: [facility] Work Phone: Start: 05-21-2023 End: 05-21-[address] Bria Spencer Work Phone: [facility] Work Phone: Start: 04-04-2023 End: 04-04-2023 Emergency department patient visit Dr. Bria Spencer Work Phone: [facility]-Emergency Department Work Phone: Start: 03-15-2023 End: 03-15-[address] Bria Spencer Work Phone: [facility] Work Phone: Start: 03-15-2023 End: 03-15-[address] Bria Spencer Work Phone: [facility] Work Phone: Start: 03-08-2023 Non-patient / Non-visit Dr. Sebastián Spencer Work Phone: [facility] Start: 03-08-2023 End: 03-08-2023 Non-patient / Non-visit Dr. Bria Spencer Work Phone: [facility] Work Phone: Start: 03-08-2023 End: 03-08-2023 Admission to same day surgery center Dr. Bria Spencer Work Phone: [facility]-Surgical Day Care Start: 03-08-2023 End: 03-08-[address] Bria Spencer Work Phone: [facility] Work Phone: Start: 02-27-2023 End: 02-27-[address] Bria Spencer Work Phone: [facility] Work Phone: Start: 02-26-2023 End: 02-26-[address] Bria Spencer Work Phone: [facility] Work Phone: Start: 02-20-2023 End: 02-20-[address] Bria Spencer Work Phone: [facility] Work Phone: Start: 02-20-2023 End: 02-20-[address] Bria Spencer Work Phone: [facility] Start: 12-20-2022 End: 12-20-[address] Bria Spencer Work Phone: [facility] Work Phone: Start: 12-14-2022 End: 12-14-[address] Rui Rea [facility] Work Phone: Start: 12-14-2022 End: 12-14-[address] Rui Rea [facility] Work Phone: Start: 12-11-2022 End: 12-19-[address] Rui Rea [facility] Work Phone: Start: 12-11-2022 End: 12-19-[address] Rui Rea [facility]-Nutritional Services Work Phone: Start: 12-11-[address] Rui He [facility]Nut[facility] Work Phone: Start: 11-24-2022 End: 11-24-[address] Rui Rea [facility]-Ultrasound, [facility] Work Phone: Start: 11-22-2022 End: 11-22-[address] Bria Spencer Work Phone: [facility] Work Phone: Start: 11-08-2022 End: 11-08-[address] Rui Rea [facility] Start: 09-15-2022 End: 09-15-[address] Rui Rea Work Phone: [facility] Work Phone: Start: 09-15-2022 End: 09-15-[address] Rui Rea Work Phone: [facility] Start: 08-24-2022 End: 08-24-[address] Rui Rea Work Phone: [facility] Work Phone: Start: 08-18-2022 End: 08-18-[address] Reynaldo Thapa Work Phone: [facility] Work Phone: Start: 08-18-2022 End: 08-18-[address] Reynaldo Thapa Work Phone: [facility] Work Phone: Start: 08-16-2022 End: 08-16-[address] Reynaldo Thapa Work Phone: [facility] Work Phone: Start: 07-13-2022 End: 07-13-[address] Reynaldo Thapa Work Phone: [facility] Work Phone: Start: 07-13-2022 End: 07-13-[address] Reynaldo Thapa Work Phone: [facility]-Outpatient Breast Imaging Start: 07-12-2022 End: 07-12-[address] Reynaldo Thapa Work Phone: [facility] Start: 06-29-2022 End: 06-29-2022 Admission to same day surgery center Dr. Reynaldo Thapa Work Phone: [facility]-Surgical Day Care Start: 06-29-2022 End: 06-29-[address] Reynaldo Thapa Work Phone: [facility] Work Phone: Start: 06-09-2022 End: 06-09-[address] Reynaldo Thapa Work Phone: [facility] Work Phone: Start: 06-09-2022 End: 06-09-[address] Reynaldo Thapa Work Phone: [facility] Start: 06-08-2022 End: 06-08-2022 Admission to same day surgery center Dr. Reynaldo Thapa Work Phone: [facility]-Surgical Day Care Start: 06-08-2022 End: 06-08-[address] Reynaldo Thapa Work Phone: [facility] Work Phone: Start: 05-05-2022 End: 05-05-[address] Rui Rea Work Phone: [facility] Start: 05-03-2022 End: 05-03-[address] Rui Rea Work Phone: [facility] Work Phone: Start: 05-03-2022 End: 05-03-[address] Rui Rea Work Phone: [facility], [facility] Start: 03-06-2022 End: 03-06-[address] Rui Rea Work Phone: [facility] Work Phone: Start: 03-06-2022 End: 03-06-[address] Rui Rea Work Phone: [facility]-Cat Scan, [facility] Start: 02-24-2022 End: 02-24-[address] Rui Rea Work Phone: [facility] Work Phone: Start: 02-24-2022 End: 02-24-[address] Rui Rea Work Phone: [facility]-Ultrasound, [facility] Start: 02-21-2022 End: 02-21-[address] Rui Rea Work Phone: [facility] Work Phone: Start: 02-21-2022 End: 02-21-[address] Rui Rea Work Phone: [facility]-Laboratory, [place] Start: 02-02-2022 End: 02-02-[address] Rui Rea Work Phone: [facility] Start: 01-20-2022 End: 01-20-[address] Rui Rea Work Phone: [facility] Work Phone: Start: 01-20-2022 End: 01-20-[address] Rui Rea Work Phone: [facility]-Laboratory, Specimen Start: 01-17-2022 End: 01-17-[address] Rui Rea Work Phone: [facility] Work Phone: Start: 01-17-2022 End: 01-17-[address] Rui Rea Work Phone: [facility]-Radiology, [facility] Start: 12-28-2021 End: 12-28-[address] Rui Rea Work Phone: [facility] Start: 12-20-2021 End: 12-20-[address] Rui Rea Work Phone: [facility] Radiology Start: 11-09-2021 End: 11-09-[address] Rui Rea Work Phone: [facility] Work Phone: Start: 11-09-2021 End: 11-09-[address] Rui Rea Work Phone: [facility]-Outpatient Bone Densitometry Start: 10-07-2021 End: 10-07-2021 Emergency department patient visit Dr. Rui Rea Work Phone: [facility]-Emergency Department Start: 09-14-2021 End: 09-14-[address] Rui Rea Work Phone: [facility] Start: 08-09-2021 End: 08-09-[address] Rui Rea Work Phone: [facility] Start: 07-15-2021 End: 07-16-2021 Emergency department patient visit Dr. Rui Rea Work Phone: [facility]-Emergency Department Start: 07-15-2021 End: 07-15-[address] Rui Rea Work Phone: [facility] Start: 07-12-2021 End: 07-12-[address] Rui Rea Work Phone: [facility]-Ultrasound, [facility] Start: 07-06-2021 End: 07-06-[address] Rui Rea Work Phone: [facility]-Outpatient Breast Imaging Start: 07-05-2021 End: 07-05-[address] Rui Rea Work Phone: [facility] Women's Care Start: 06-08-2021 End: 06-08-[address] Rui Rea Work Phone: [facility] Start: 03-31-2021 End: 03-31-[address] Rui Rea Work Phone: [facility] Procedures Date Procedure Procedure Detail [...] Work Phone: Comment on above: Test Ordered: [id number] 25-Hydroxyvitamin D LCMS D2+L000-Febeodv, Vitamin D 35 ng/mL ES Reference Range: .Reference Range:All Ages: Target levels 30 - [id number], Vitamin D-2 <1.0 ng/mL ES Reference Range: .This test was developed and its performance characteristicsdetermined by [employer]. It has not been cleared or approvedby the Food and Drug Administration.25-Hydroxy, Vitamin D-3 35 ng/mL ES Reference Range: .This test was developed and its performance characteristicsdetermined by [employer]. It has not been cleared or approvedby the Food and Drug Administration.Performed at: [email or web address] [email or web address] [address] [place] [id number] Director: Justus Hodges MD, Phone: [phone] at: [facility] [place], [place] [id number] Director: Onur Marcum PhD, Phone: [phone] Start: 07-07-2024 X-ray of esophagus with double contrast Dr. Bria Spencer MD Work Phone: Start: 07-01-[address] Bria Spencer MD Work Phone: Start: 03-07-2024 Plain X-ray of shoulder Dr. Bria vila MD Work Phone: Start: 06-22-[address] Bria Spencer Work Phone: Start: 06-12-[address] Bria Spenecr Work Phone: Start: 04-04-2023 Plain chest X-ray Dr. Bria Spencer Work Phone: Start: 04-04-2023 Computed tomography of abdomen and pelvis with intravenous contrast Dr. Bria Spencer Work Phone: Start: 03-08-[address] Bria Spencer Work Phone: Start: 12-14-2022 Radioisotope scan of parathyroid Dr. Andrae Rea Start: 11-24-2022 US scan of thyroid Dr. Riu Rea Start: 07-13-[address] Reynaldo [...] Rea Work Phone: Start: 12-29-2016 End: 12-29-2016 RECEIVABLE MANAGER Jazmin Cheng PA-C Work Phone: Start: 12-29-2016 [...] MMNanci Thapa MD Start: 08-05-2014 End: 08-05-2014 RECEIVABLE MANAGER Reynaldo Thapa MD Start: 08-05-2014 End: 08-06-2014 [...] months Nanci Rios Start: 04-16-2014 End: 04-16-2014 RECEIVABLE MANAGER Jazmin Cheng PA-C Work Phone: Start: 04-16-2014 End: 04-17-2014 Documentation of current medications Jazmin Cheng PA-C Work Phone: Start: 04-16-2014 End: 04-16-2014 Ecg routine ecg w/least 12 lds w/i&r Jazmin Cheng PA-C Work Phone: Start: 04-16-2014 End: 04-16-2014 Follow Up Appt 1 year Jazmin Cheng PA-C Work Phone: Start: 04-16-2014 End: 04-16-2014 RECEIVABLE MANAGER Jazmin Cheng PA-C Work Phone: Start: 04-16-2014 [...] PA-C Work Phone: Start: 10-16-2012 End: 10-16-2012 RECEIVABLE MANAGER Jazmin Cheng PA-C Work Phone: Start: 10-16-2012 End: 10-16-2012 Follow Up Appt 6 months Jazmin Cheng PA-C Work Phone: Start: 10-16-2012 End: 11-19-2012 Lipid 1996 panel - Serum or Plasma Yamilet Cheng PA-C Work Phone: Start: 10-16-2012 End: 11-17-2012 *Hepatic Function Panel Jazmin Cheng PA-C Work Phone: Start: 10-16-2012 End: 10-16-2012 RECEIVABLE MANAGER Jazmin Cheng PA-C Work Phone: Start: 10-16-2012 [...] quick Work Phone: Urine culture Dr. Rui quikc Work Phone: Plan of Treatment Date Care Activity Detail Author Start: 01-01-2025 Urine microalbumin profile DTaP,Tdap,Td Vaccine (3 - Td or Tdap) [facility] Start: 07-17-2024 Patient referral [facility] Work Phone: Start: 07-17-2024 Basic metabolic 2008 panel with ionized calcium - Serum or Plasma [facility] Start: 07-17-2024 CBC W Auto Differential panel - Blood [facility] Start: 05-15-2024 Patient referral [facility] Work Phone: Start: 11-15-2023 End: 11-15-2023 Patient encounter procedure 11/15/2023 11:30 AM EDT [facility] BARIATRIC DEPARTMENT [address] [place], [place] [id number] Ita Garcia MD [address] [id number] maria a ASIF MD [facility]RIC [facility] Comment on above: maria a ASIF MD Start: 11-05-2023 End: 11-05-2023 Patient encounter procedure 11/05/2023 9:00 AM EDT Appointment [facility] [address] [place], [place] [id number] scheduled w/dr office [facility] Comment on above: scheduled w/dr office Start: 10-21-2023 Influenza vaccination Influenza Vaccine (#1) [facility] Start: 09-05-2023 End: 09-05-2023 Patient encounter procedure 09/05/2023 2:30 PM EDT Office Visit [facility] BARIATRIC DEPARTMENT [address] [place], [place] [id number] Ita Garcia MD [address] [id number] New Patient - Referral - achalsia of cardia-referred by Dr. John [facility] Comment on above: New Patient - Referral - achalsia of car cami-referred by Dr. John Start: 06-22-2023 Patient discharge [facility] Start: 06-12-2023 Colonoscopy w/biopsy single/multiple COLONOSCOPY AND BIOPSY [facility] Start: 06-12-2023 Esophagogastroduodenoscopy transoral diagnostic EGD DIAGNOSTIC BRUSH WASH [facility] Start: 06-12-2023 Patient discharge [facility] Start: 03-08-2023 Anes esoph thyrd larynx trach & lymph neck 1yr ANESTH NECK ORGAN 1YR/> [facility] Start: 03-08-2023 Parathyroidectomy/exploration parathyroids EXPLORE PARATHYROID GLANDS [facility] Start: 03-08-2023 Patient discharge [facility] Start: 02-19-2023 Advance Directive Discussion Advance Directive Discussion [facility] Start: 02-19-2023 Behavioral Health Screening Behavioral Health Screening [facility] Start: 10-20-2022 Covid-19 Vaccine () Covid-19 Vaccine () [facility] Start: 10-20-2022 Covid-19 Vaccine () Covid-19 Vaccine () [facility] Start: 09-15-2022 Procedure [facility] Start: 06-29-2022 Anes lithotrp xtrcorp shock wave w/o water bath ANESTH KIDNEY STONE DESTRUCT [facility] Start: 06-29-2022 Cysto/uretero w/lithotripsy &indwell stent insrt CYSTO/URETERO W/LITHOTRIPSY [facility] Start: 06-29-2022 Patient discharge [facility] Start: 06-08-2022 Anes trurl fragmntj manj&/rmvl ureteral calculus ANESTH STONE REMOVAL [facility] Start: 06-08-2022 Cysto/uretero w/lithotripsy &indwell stent insrt CYSTO/URETERO W/LITHOTRIPSY [facility] Start: 06-08-2022 Patient discharge [facility] Start: 10-12-2019 Pneumococcal Vaccine: 65+ (2 of 2 - PPSV23 or PCV20) Pneumococcal Vaccine: 65+ (2 of 2 - PPSV23 or PCV20) [facility] Start: 07-10-2017 End: 07-10-2017 Appointment Appointment [facility] Work Phone: Start: 12-29-2016 End: 12-29-2016 RECEIVABLE MANAGER RECEIVABLE MANAGER [facility] Work Phone: Start: 12-29-2016 End: 12-29-2016 Follow Up Appt 6 months Follow Up Appt 6 months [facility] Work Phone: Start: 12-29-2016 End: 12-29-2016 Appointment Appointment [facility] Work Phone: Start: 12-29-2016 End: 12-29-2016 Appointment Appointment [facility] Work Phone: Start: 06-30-2016 End: [...] 6 months Follow Up Appt 6 months [facility] Work Phone: Start: 12-28-2015 End: 12-28-2015 MMM MMM [facility] Work Phone: Start: 09-27-2015 End: 09-27-2015 Colonoscopy flx dx w/collj spec when pfrmd Colonoscopy [facility] Work Phone: Start: 09-27-2015 End: 09-27-2015 Esophagogastroduodenoscopy transoral diagnostic Upper gastrointestinal endoscopy [facility] Work Phone: Start: 09-27-2015 End: 09-27-2015 Diagnostic colonoscopy Colonoscopy [facility] Work Phone: Start: 09-27-2015 End: 09-27-2015 Uppr gi endoscopy, diagnosis Upper gastrointestinal endoscopy [facility] Work Phone: Start: 09-20-2015 End: 09-24-2015 Follow Up after Imaging/labs Follow Up after Imaging/labs [facility] Work Phone: Start: 09-20-2015 End: 09-24-2015 Primary Care Physician Primary Care Physician [facility] Work Phone: Start: 09-20-2015 End: 09-24-2015 Radex esophagus X-Ray, Esophagus & Pharynx [facility] Work Phone: Start: 09-20-2015 End: 09-24-2015 Contrast x-ray, esophagus X-Ray, Esophagus & Pharynx [facility] Work Phone: Start: 09-20-2015 End: 09-24-2015 Follow Up after Imaging/labs Follow Up after Imaging/labs [facility] Work Phone: Start: 09-20-2015 End: 09-24-2015 Primary Care Physician Primary Care Physician [facility] Work Phone: Start: 06-18-2015 End: 06-18-2015 RECEIVABLE MANAGER RECEIVABLE MANAGER [facility] Work Phone: Start: 06-18-2015 End: 06-18-2015 Follow Up Appt 6 months Follow Up Appt 6 months [facility] Work Phone: Start: 06-18-2015 End: 06-18-2015 RECEIVABLE MANAGER RECEIVABLE MANAGER [facility] Work Phone: Start: 06-18-2015 End: 06-18-2015 Follow Up Appt 6 months Follow Up Appt 6 months [facility] Work Phone: Start: 11-19-2014 End: 11-19-2014 Ecg routine ecg w/least 12 lds w/i&r EKG (In office) [facility] Work Phone: Start: 11-19-2014 End: 11-19-2014 Follow Up Appt 6 months Follow Up Appt 6 months [facility] Work Phone: Start: 11-19-2014 End: 11-19-2014 MMM MMM [facility] Work Phone: Start: 11-19-2014 End: 11-19-2014 Electrocardiogram, complete EKG (In office) [facility] Work Phone: Start: 11-19-2014 End: 11-19-2014 Follow Up Appt 6 months Follow Up Appt 6 months [facility] Work Phone: Start: 11-19-2014 End: 11-19-2014 MMM MMM [facility] Work Phone: Start: 08-05-2014 End: 08-05-2014 RECEIVABLE MANAGER US PREVENTIVE MEDICINE [facility] Work Phone: Start: 08-05-2014 End: 08-05-2014 Ecg routine ecg w/least 12 lds w/i&r EKG (In office) [facility] Work Phone: Start: 08-05-2014 End: 08-05-2014 Follow Up Appt 3 months Follow Up Appt 3 months [facility] Work Phone: Start: 08-05-2014 End: 08-05-2014 RECEIVABLE MANAGER RECEIVABLE MANAGER [facility] Work Phone: Start: 08-05-2014 End: 08-05-2014 Electrocardiogram, complete EKG (In office) [facility] Work Phone: Start: 08-05-2014 End: 08-05-2014 Follow Up Appt 3 months Follow Up Appt 3 months [facility] Work Phone: Start: 04-16-2014 End: 04-16-2014 RECEIVABLE MANAGER RECEIVABLE MANAGER [facility] Work Phone: Start: 04-16-2014 End: 04-16-2014 Ecg routine ecg w/least 12 lds w/i&r EKG (In office) [facility] Work Phone: Start: 04-16-2014 End: 04-16-2014 Follow Up Appt 1 year Follow Up Appt 1 year [facility] Work Phone: Start: 04-16-2014 End: 04-16-2014 RECEIVABLE MANAGER RECEIVABLE MANAGER [facility] Work Phone: Start: 04-16-2014 End: 04-16-2014 Electrocardiogram, complete EKG (In office) [facility] Work Phone: Start: 04-16-2014 End: 04-16-2014 Follow Up Appt 1 year Follow Up Appt 1 year [facility] Work Phone: Start: 10-20-2013 End: [...] 1 year Follow Up Appt 1 year [facility] Work Phone: Start: 04-17-2013 End: 04-17-2013 MMM MMM [facility] Work Phone: Start: 10-16-2012 End: 11-11-2012 *Hepatic Function Panel *Hepatic Function Panel [facility] Work Phone: Start: 10-16-2012 End: 10-16-2012 RECEIVABLE MANAGER RECEIVABLE MANAGER [facility] Work Phone: Start: 10-16-2012 End: 10-16-2012 Follow Up Appt 6 months Follow Up Appt 6 months [facility] Work Phone: Start: 10-16-2012 End: 11-19-2012 Lipid panel [AGGREGATE] *Lipid Profile CC PCP [facility] Work Phone: Start: 10-16-2012 End: 11-11-2012 *Hepatic Function Panel *Hepatic Function Panel [facility] Work Phone: Start: 10-16-2012 End: 10-16-2012 RECEIVABLE MANAGER RECEIVABLE MANAGER [facility] Work Phone: Start: 10-16-2012 End: 10-16-2012 Follow Up Appt 6 months Follow Up Appt 6 months [facility] Work Phone: Start: 10-16-2012 End: 11-19-2012 Lipid panel [AGGREGATE] *Lipid Profile CC PCP [facility] Work Phone: Start: 04-19-2012 End: 04-19-2012 Ecg routine ecg w/least 12 lds w/i&r EKG (In office) [facility] Work Phone: Start: 04-19-2012 End: 04-19-2012 Follow Up Appt 6 months Follow Up Appt 6 months [facility] Work Phone: Start: 04-19-2012 End: 04-19-2012 MMM MMM [facility] Work Phone: Start: 04-19-2012 End: 04-19-2012 Electrocardiogram, complete EKG (In office) [facility] Work Phone: Start: 04-19-2012 End: 04-19-2012 Follow Up Appt 6 months Follow Up Appt 6 months [facility] Work Phone: Start: 04-19-2012 End: 04-19-2012 MMM MMM [facility] Work Phone: Start: 2012 Pneumococcal Vaccine: 65+ (1 of 1 - PCV) Pneumococcal Vaccine: 65+ (1 of 1 - PCV) [facility] Start: 2012 Screening for osteoporosis Bone Density Screening [facility] Start: 2007 RSV Vaccine (1 - 1-dose 60+ series) RSV Vaccine (1 - 1-dose 60+ series) [facility] Start: 1997 Shingrix Vaccine (1 of 2) Shingrix Vaccine (1 of 2) [facility] Start: 1992 Diabetes Screening Diabetes Screening [facility] Start: 1965 Hepatitis C screening Hepatitis C Screening [facility] Anion gap in Serum or Plasma [facility] BUN/Creatinine ratio [facility] Calcium [Mass/volume ] in Serum or Plasma [facility] Calculus analysis [facility] Carbon dioxide, tota l [Moles/volume] in Central venous blood [facility] Colonoscopy [facility] Creatinine [Mass/vol ume] in Serum or Plasma [facility] Cytology report of B hector fluid Cyto stain [facility] Erythrocyte mean cor puscular volume determination [facility] Glucose [Mass/volume ] in Serum or Plasma [facility] Hematocrit [Volume F raction] of Blood [facility] Hemoglobin [Mass/vol ume] in Blood [facility] Leukocytes [#/volume] in Blood [facility] Mean corpuscular hem oglobin concentration determination [facility] Mean corpuscular hem oglobin determination [facility] Measurement of renal function [facility] Measurement of weigh t of calculus [facility] Neutrophil count [facility] Neutrophil percent d ifferential count [facility] Origin of Stone [facility] Patient Education [facility] Work Phone: Patient referral [facility] Work Phone: Platelets [#/volume] in Blood [facility] Potassium measurement [facility] Radiologic exam esop hagus double contrast study [facility] Red blood cell count [facility] Red cell distributio n width determination [facility] Serum chloride measurement [facility] Sodium measurement [facility] Specimen color determination [facility] Urea nitrogen [Mass/ volume] in Serum or Plasma [facility] End: 10-04-2024 XR Esophagus Views W contrast PO XR ESOPHAGRAM Radiology Routine Esophagogastric junction outflow obstruction 1 Occurrences starting 09/05/2023 until 10/04/2024 [facility] Work Phone: Comment on above: 1 Occurrences starting 09/05/2023 until 10/04/2024 [facility] Immunizations Immunization Date Immunization Notes Care Provider Jeniffer ramirez 11-23-2022 influenza virus vaccine, unspecified formulation Ita Garcia MD Work Phone: [facility] 10-08-[address] Rui Rea Work Phone: [facility] 06-03-2020 Covid (Pfizer) Dr. Rui bledsoe Work Phone: [facility] 10-20-[address] Rui Rea Work Phone: [facility] 10-20-2017 influenza, seasonal, injectable, preservative free Ita Garcia MD Work Phone: [facility] 10-20-2017 influenza virus vaccine, unspecified formulation Ita Garcia MD Work Phone: [facility] 01-01-2015 tetanus toxoid, redu vesna diphtheria toxoid, and acellular pertussis vaccine, adsorbed Ita Garcia MD Work Phone: [facility] 12-22-2014 tetanus toxoid, redu vesna diphtheria toxoid, and acellular pertussis vaccine, adsorbed Dr. Rui Rea Work Phone: [facility] Payers Date Payer Category Payer Self-pay [id number] 2017 Medicare [employer] [place] [id number] 2017-Present [phone] [address] [place] [id number] HMO [id number] 2017 Medicare [id number] Medicare [id number] Unknown [id number] [id number]2 Unknown [id number] 2.16.840.1.458360.3.579.2.462 Unknown [id number] 2.16.840.1.928928.3.579.2.462 Unknown [id number] 2.16.840.1.319754.3.579.2.462 Unknown [id number] 2.16.840.1.464264.3.579.2.462 Unknown [id number] 2.16.840.1.111485.3.579.2.462 Unknown [id number] 2.16.840.1.458284.3.579.2.462 Unknown [id number] 2.16.840.1.756146.3.579.2.462 Unknown [id number] 2.16.840.1.704394.3.579.2.462 Unknown [id number] 2.16.840.1.064669.3.579.2.462 Unknown [id number] 2.16.840.1.893993.3.579.2.462 Unknown [id number] 2.16.840.1.088908.3.579.2.462 Unknown [id number] 2.16.840.1.130397.3.579.2.462 Unknown [id number] 2.16.840.1.756074.3.579.2.462 Unknown [id number] 2.16.840.1.657365.3.579.2.462 Unknown [id number] 2.16.840.1.102873.3.579.2.462 Unknown [id number] 2.16.840.1.448811.3.579.2.462 Unknown [id number] 2.16.840.1.367592.3.579.2.462 Unknown [id number] 2.16.840.1.745816.3.579.2.462 Unknown [id number] 2.16.840.1.834115.3.579.2.462 Unknown [id number] 2.16.840.1.481634.3.579.2.462 Unknown [id number] 2.16.840.1.389690.3.579.2.462 Unknown [id number] 2.16.840.1.260794.3.579.2.462 Unknown [id number] 2.16.840.1.741575.3.579.2.462 Unknown [id number] 2.16.840.1.886264.3.579.2.462 Unknown [id number] 2.16.840.1.690657.3.579.2.462 Social History Date Type Detail Facility Start: 07-05-2021 End: 06-05-2023 Tobacco smoking status NHIS Unknown if ever smoked [facility] Start: 07-20-[address] [facility] Start: 07-20-[address] [facility] Start: 07-21-2018 Non-smoker [facility] Start: 1945 Sex Assigned At Female [facility] Start: 09-05-2023 End: 10-23-2024 Tobacco smoking status NHIS Never smoked tobacco [facility] Start: 08-31-2023 End: 09-05-2023 Alcohol intake Lifetime non-drinker (finding) [facility] Start: 11-16-2020 End: 08-31-2023 History of Social function [facility] Start: 11-16-2020 End: 08-31-2023 Tobacco use panel [facility] National Score (1-100), lower number is lower risk Not on file [facility] Start: 1945 Sex Assigned At Not on file [facility] Start: 09-05-2023 Tobacco use and exposure Smokeless tobacco non-user [facility] NEGATED: Highlighted row [facility] Medical Equipment Procedure Code Equipment Code Equipment Origin al Text Equipment Identifier Dates Parathyroidectomy Ligation clip, metallic ()[id number] FDA Start: 03-08-2023 Parathyroidectomy Ligation clip, metallic ()[id number] FDA Start: 03-08-2023 Cystoscopy, with retrograde pyelogram, ureteroscopy, laser procedure, and stent inser ([id number]) Polymeric ureteral stent ()[id number] FDA Start: 06-08-2022 Colonoscopy Ligation clip, metallic ()[id number] FDA Start: 06-12-2023 ([id number]) Dual-chamber implantable pacemaker, rate-responsive ()[id number] FDA Start: 01-17-2021 ([id number]) Endocardial paci ng lead ()[id number] FDA Start: 01-17-2021 ([id number]) Endocardial paci ng lead ()[id number] FDA Start: 01-17-2021 ([id number]) Polymeric ureter al stent ()[id number] FDA Start: 06-29-2022 Goals Date Patient Goal Desired Activity /State Functional Status Date Assessment Result Facility 06-08-[address] [facility] Work Phone: Mental Status Date Assessment Result Facility 06-22-2023 Cognitive function Awake;Alert;Appropriat e [facility] Work Phone: 06-12-2023 Cognitive function Voice/Name [facility] Work Phone: 03-08-2023 Cognitive function Level Of Consciousness Drowsy [facility] Work Phone: 03-08-2023 Cognitive function Voice/Name [facility] Work Phone: 06-29-2022 Cognitive function Voice/Name [facility] Work Phone: 06-08-2022 Cognitive function Voice/Name [facility] Work Phone: 06-08-2022 Cognitive function Patient Orieriberto ascencio Person;Place;Time [facility] Work Phone: 07-15-2021 Cognitive function Level Of Cons ciousness Awake;Alert;Appropriate;Follow s Commands [facility] Work Phone: Clinical Notes 11-16-2020 to 11-10-2024 Note Date & Type Note Facility 11-10-2024 Procedure note [facility] 09-30-2024 Procedure note [facility] 09-17-2024 Procedure note [facility] 09-17-2024 Evaluation note Diagnosis Onset Date Resolution [...] Tachy-eric syndrome resolved November 10, 2024 3:48pm [facility] [employer] [facility] Work Phone: 1(874) 202-658405-29-2025 Evaluation note* Diagnosis Onset Date Resolution Status [...] Tachy-eric syndrome resolved September 17, 2024 9:48am [facility] Work Phone: 1(992) 432-700805-29-2025 Evaluation note* Diagnosis Onset Date Resolution Status [...] 2024 10:04am HLD (hyperlipidemia) chronic 2024 10:04am [facility] Work Phone: 1(267) 391-417305-19-2025 Radiology Diagnostic study note [facility] Imaging Services [address] [place] [address] Esophagus Dual Contrast MR#: [id number] Acct: [id number] Name: SHIRLEY SHULTZ Rep #: [id number] : 1945 F 79 From: Jourdan Sierra MD PCP: Dr. Bria Spencer MD Status: REG CLI Study:Esophagus Dual Contrast Date of Exam: 07/07/24 Exam# [id number] Ordering Dr: Clarisse Walden PROCEDURE: ESOPHAGUS DUAL [...] IMPRESSION: Unremarkable air contrast esophagram. Reading Location: [place] [address] CC: JALEN Walden; Dr. Bria Spencer MD ~ Shoe Puller: Signed [facility]05-14-2025 Procedure note [facility] Speech Pathology [address] [place] [address] Modified Barium Swallow Study MR#: [id number] Acct: [id number] Name: SHIRLEY SHULTZ Rep #:[id number] : 1945 79 From: Shital Bliss, [facility] Modified Barium Swallow Patient Information Study Date: [...] cup: Result: 2= enter airway/above vocal folds/ejected Kennedy Thick Liquid via large single sip: cup: [...] Status Active ST Patient: Active Contact Information [facility] Speech Therapy:: Shital Hernandes M.A. [facility]? Speech-Language Pathologist?? [facility] [address] [place] [address]? [email or web address]?? [phone] 07/02/24 6727 M.A., [employer]> Date/Time Shital Hernandes M.A. [employer] Co-Signature Required for all Medicare patients Date/Time Co-Signature CC: ~ [facility]03-27-2025 Evaluation note* Diagnosis Onset Date Resolution Status Admit Date Change in bowel habit acute Apr 2024 10:01am Constipation acute May 15, 2024 10:01am Dysphagia acute May 15 10:01am [facility] Work Phone: 1(210) 981-342103-27-2025 Evaluation note* Diagnosis Onset Date Resolution Status Admit Date Change in bowel habit acute Apr 10:01am Constipation acute May 15, 2024 10:01am Dysphagia acute May 15 10:01am Globus sensation acute June 9:26am Melena acute July 17, 2024 9:26am Cough resolved July 17, 2024 9:26am [facility] [employer] Work Phone: 1(438) 947-480607-17-2024 NoteHNO ID: [id number] Author: ITA GARCIA MD Service: ? Author [...] intact. DCI within normal limits. EGJOO per [place] Classification - concerning for possible achalasia Social: denies x3 PSHx: cardiac pacemaker placement (2020), cardioversion, cardiac catheterization, TL, detached retina repair, parathyroidectomy PAST MEDICAL HISTORY: PAST MEDICAL HISTORY Diagnosis Date Ambulates with cane Anticoagulant long-term use indication: stroke prevention atrial fibrillation Anxiety and depression Arthritis At risk for stroke [id number] = 3 (HTN, age, female gender) Atrophic [...] Current Outpatient Medications Me (more content not included)...[facility]07-17-2024 History of Present illness Narrative* Ita [...] to the requesting physician(s) by way of [facility] medical record or letter via [place] mail. [...] intact. DCI within normal limits. EGJOO per [place] Classification - concerning for possible achalasia Social: denies x3 PSHx: cardiac pacemaker placement (2020), cardioversion, cardiac catheterization, TL, detached retina repair, parathyroidectomy PAST MEDICAL HISTORY: PAST MEDICAL HISTORY Diagnosis Date Ambulates with cane Anticoagulant long-term use indication: stroke prevention atrial fibrillation Anxiety and depression Arthritis At risk for stroke [id number] = 3 (HTN, age, female gender) Atrophic [...] LIGATE FALLOPIAN TUBE 1982 MANOMETRY ESOPHAGEAL 06/22/2023 [place] PARATHYROIDECTOMY/EXPLORATION PARATHYROIDS REPAIR, DETACHED RETINA, LASER STRESS [...] Decision Making Level: 4 - Moderate SIGNATURE: tIa Garcia MD PATIENT NAME: Shirley Shultz DATE: September 05, 2023 TIME: 2:55 PM PAGER/CONTACT #: [id number] documented [facility] Telephone encounter Note * Telephone Encounter - Dominick Leach - 09/04/2023 7:58 AM EDT Reminder call regarding 09/05/2023 new patient appointment. LVM for patient - asked patient to call back to confirm appointment. Unable to My Chart message sent to patient - MyChart not set up. [facility]07-16-2024 Miscellaneous Notes* Telephone Encounter - Dominick Leach - 09/04/2023 7:58 AM EDT Reminder call regarding 09/05/2023 new patient appointment. LVM for patient - asked patient to call back to confirm appointment. Unable to My Chart message sent to patient - MyChart not set up. documented in this encounterC[facility] [facility]04-23-[address] [facility]04-23-[address] [facility]04-23-[address] [facility]02-14-2024 Discharge summary Author Ryan Townsend [facility] April 04, 2023 9:03pm Note Date/Time April 04, 2023 4:53pm [facility] Medical Records Department [address] [place] [address] Emergency Department Summary 04/04/23 MR#: [id number] Acct: [id number] Name: SHIRLEY SHULTZ Rep #:[id number] : 1945 78 From: Ryan Lawrence PCP: Dr. Bria Spencer MD Status:REG ER Location: ED HPI History of Present Illness Chief Complaint: Nausea/Vomiting [facility] Medical History (Updated 04/04/23 @ 20:03 by [...] ANAPHYLAXIS Verified 04/04/23 16:38 [facility] [place] codeine Allergy Intermediate PT UNSURE Verified 04/04/23 [...] Discharge home This note was generated with Yeelink dictation software. It may contain incorrectwords, spelling, [...] 80.1 H Lymph % (Auto) 11.6 L [place] % (Auto) 7.1 Eos % (Auto) 0.3 [...] Sl. Cloudy Urine pH 5.0 Ur Specific [place] 1.020 Urine Protein 100 H Urine Glucose [...] DAYS PRE-OP AND 2 DAYS POST-OP PER [facility] Rx Instructions: must administer with evening meal [...] your Primary Care Provider. Call [facility] ([phone]) or report to the closest Emergency Room. Call 911 if necessary. 04/04/232102 <Electronically signed by Ryan Townsend DO> Cosigner Signature (if applicable): CC: Dr. Bria Spencer MD ~ Signed [facility] Work Phone: 1(879) 851-792901-18-2024 History and physical note Author Azar Hammonds [facility] March 08, 2023 7:40am Note Date/Time March 08, 2023 7 :40am [facility] Medical Records Department [address] [place] [address] History & Physical Exam 03/08/23 0739 MR#: [id number] Acct: [id number] Name: SHIRLEY SHULTZ Rep #:[id number] : 1945 77 From: Azar Hickman PCP: Dr. Bria Spencer MD Status:REG [facility] Location: [place] [address] History and Physical Date of Admission: 03/08/23 Date of Service: 02/27/23 MR#: [id number] Acct: [id number] Name: SHIRLEY SHULTZ Rep #: [id number] : 1945 Provider: Dr. Azar Hammonds MD Age/Sex: 77/F Location: [facility] Status: Signed Intake Vital Signs 12/20/2313:56 [...] UNSURE OF REACTIONtrimethoprim [From Bactrim] Allergy (Intermediate, Dixxyyqc54/09/24 08:07) PT UNSURE OF REACTION Medications cholecalciferol [...] fibrillation and pacemaker placement managed by the [facility]. ROS General General: Yes fatigue; [...] Spencer MD; Dr. Azar Hammonds MD~ Signed [facility] Work Phone: 1(947) 516-446705-11-[address] Mejia [facility] June 29, 2022 10:15am Note Date/Time June 29, 2022 8:52a m [facility] Medical Records Department [address] [place] [address] Instructions for Home/Discharge Instructions 06/29/22 0852 MR#: [id number] Acct: [id number] Name: SHIRLEY SHULTZ Rep #:[id number] : 1945 77 From: Ninfa Hickman PCP: [...] CC: Dr. Bria Spencer MD ~ Signed [facility] Work Phone: 1(161) 890-284705-11-[address] [facility] 06-08-[address] Mejia [facility] June 08, 2022 8:38am Note Date/Time June 08, 2022 8:3 5am [facility] Medical Records Department [address] [place] [address] Instructions for Home/Discharge Instructions 06/08/22 0834 MR#: [id number] Acct: [id number] Name: SHIRLEY SHULTZ Rep #:[id number] : 1945 77 From: Ninfa Hickman PCP: Dr. Bria Spencer MD Status:REG [facility] Discharge Instructions Diet Discharge Diet: No restrictions [...] CC: Dr. Bria Spencer MD ~ Signed [facility] Work Phone: 1(456) 429-222911-29-2021 Evaluation note* Diagnosis Onset Date Resolution Status Essential (primary) hypertension acute Persistent atrial fibrillation acute History of permanent cardiac pacemaker placement January 17, 2021 chronic Persistent atrial fibrillation acute Symptomatic bradycardia acut e History of permanent cardiac pacemaker placement January 17, 2021 chronic Tachy-eric syndrome resolve d Pelvic pain acute [facility] Work Phone: 1(884) 541-320211-29-2021 Evaluation note* Diagnosis Onset Date Resolution Status Essential (primary) hypertension acute Persistent atrial fibrillation acute History of permanent cardiac pacemaker placement January 17, 2021 chronic Persistent atrial fibrillation acute Symptomatic bradycardia acut e History of permanent cardiac pacemaker placement January 17, 2021 chronic Tachy-eric syndrome resolve d Pelvic pain acute COVID-19 acute [facility] Work Phone: 1([phone]) 943-701811-29-2021 Evaluation note* Diagnosis Onset Date Resolution Status Essential (primary) hypertension acute Persistent atrial fibrillation acute History of permanent cardiac pacemaker placement January 17, 2021 chronic Persistent atrial fibrillation acute Symptomatic bradycardia acut e History of permanent cardiac pacemaker placement January 17, 2021 chronic Tachy-eric syndrome resolve d [facility] Work Phone: 1([phone]) 260-831711-29-2021 Evaluation note* Diagnosis Onset Date Resolution Status Persistent atrial fibrillation acute Symptomatic bradycardia acut e History of permanent cardiac pacemaker placement January 17, 2021 chronic Tachy-eric syndrome resolve d [facility] Work Phone: 1(127) 677-817311-29-2021 Evaluation note* Diagnosis Onset Date Resolution Status [...] atrial fibrillation chronic Tachy-eric syndrome resolve d [facility] Work Phone: 1([phone]) 955-435411-29-2021 Evaluation note* Diagnosis Onset Date Resolution Status [...] atrial fibrillation chronic Tachy-eric syndrome resolve d [facility] Work Phone: [phone]) [phone] Evaluation note* Diagnosis Onset Date Resolution Status History of permanent cardiac pacemaker placement January 17, 2021 chronic Persistent atrial fibrillation chronic Tachy-eric syndrome resolve d [facility] Work Phone: [phone]) 901-672211-29-2021 Evaluation note* Diagnosis Onset Date Resolution Status History of permanent cardiac pacemaker placement January 17, 2021 chronic Persistent atrial fibrillation chronic Tachy-eric syndrome resolve d Monilial intertrigo acute Encounter for routine gyneco logical examination noneactive [facility] Work Phone: 1(657) 354-554311-29-2021 Evaluation note* Diagnosis Onset Date Resolution Status History of permanent cardiac pacemaker placement January 17, 2021 chronic Persistent atrial fibrillation chronic Tachy-eric syndrome resolve d Monilial intertrigo acute Encounter for routine gyneco logical examination noneactive Symptomatic bradycardia acut e History of permanent cardiac pacemaker placement January 17, 2021 chronic Persistent atrial fibrillation chronic Tachy-eric syndrome resolve d [facility] Work Phone: [phone]) 462-363411-29-2021 Evaluation note* Diagnosis Onset Date Resolution Status Monilial intertrigo acute Encounter for routine gyneco logical examination noneactive Symptomatic bradycardia acut e History of permanent cardiac pacemaker placement January 17, 2021 chronic Persistent atrial fibrillation chronic Tachy-eric syndrome resolve d Essential (primary) hypertension chronic History of permanent cardiac pacemaker placement January 17, 2021 chronic Persistent atrial fibrillation [facility] Work Phone: 1([phone]) 802-415711-29-2021 Evaluation note* Diagnosis Onset Date Resolution Status Essential (primary) hypertension chronic History of permanent cardiac pacemaker placement January 17, 2021 chronic Persistent atrial fibrillation [facility] Work Phone: 1([phone]) 295-245009-28-2021 NoteHNO ID: [id number] Author: Johana Knight APRN.FLATWORK CATCHER Service: ? Author Type: Nurse Practitioner Type: [...] Discussed expected course of illness Johana Knight APRN.[facility]* Diagnosis Onset Date Resolution Status Pelvic pain acute Encounter for routine gyneco logical examination noneactive Monilial intertrigo noneacti ve COVID-19 acute Essential (primary) hypertension acute Persistent atrial fibrillation acute History of permanent cardiac pacemaker placement January 17, 2021 chronic Persistent atrial fibrillation acute Symptomatic bradycardia acut e History of permanent cardiac pacemaker placement January 17, 2021 chronic Tachy-eric syndrome resolve d [facility] Work Phone: Evaluation note* Diagnosis Onset Date Resolution Status Hyperparathyroidism, primary acute [facility] Work Phone: Evaluation note* Diagnosis Onset Date Resolution Status Hyperparathyroidism, primary acute Hyperparathyroidism, primary acute [facility] Work Phone: Evaluation note* Diagnosis Onset Date Resolution Status Hyperparathyroidism, primary acute Hyperparathyroidism, primary acute Hypoparathyroidism 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 acute Status post parathyroidectomy acute [facility] Work Phone: Evaluation note* Diagnosis Onset Date Resolution Status Hyperparathyroidism, primary acute Hypoparathyroidism 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 acute Status post parathyroidectomy acute Dysphagia acute [facility] Work Phone: Evaluation note* Diagnosis Esophagogastric [...] obesity type (HCC) documented in this encounter [facility] Author Win John [facility] June 12, 2023 7:02am Note Date/Time June 12, 2023 7:0 2am [facility] Medical Records Department [address] [place] [address] History & Physical Exam 06/12/23 0702 MR#: [id number] Acct: [id number] Name: SHIRLEY SUHLTZ Rep #:[id number] : 1945 78 From: Win vasques MD PCP: Dr. Bria Spencer MD Status:[facility] Location: [place] [address] History and Physical Date of Admission: 06/12/23 Intake Vital Signs 04/04/2415:38 05/21/2407:30 Height 5 ft 4 in 5 ft 4 in Weight: 202 lb BMI 34.7 BP 98/68 Blood Pressure Location Rt brachial Position Sitting Respiration 16 Intake Visit Reasons: C-Scope gastroenteritis and colitis Chief Complaint: scopes Body Design Checker Required: No Is patient in pain?: Yes [...] UNSURE OF REACTIONtrimethoprim [From Bactrim] Allergy (Intermediate, Catylizl00/01/24 08:30) PT UNSURE OF REACTIONmetformin Adverse Reaction [...] vomiting #20 tabs 04/04/23 [Rx Confirmed 05/21/23] [facility] Medical History (Updated 05/21/23 @ 08:54 by [...] General: cooperative Orientation: alert and oriented x3 [facility] Head: normal to inspection Neck Neck: normal [...] proceed with procedure. Win John MD Pager: [facility] [address] [place] [address], [address] [place] [address] Office: I have examined the patient and the H&P has been reviewed. There are no clinicalchanges since date of exam. 06/12/23 0702 <Electronically signed by Win John MD> Cosigner Signature (if applicable): CC: Dr. Win John MD; Dr. Bria Spencer MD~ Signed [facility] Work Phone: Hospital Discharge instructions Additional Instructions [facility] Discharge instructions Additional Instructions [facility] Work Phone: Hospital Discharge instructions Additional [...] care physician for further outpatient evaluation and management.[facility] Work Phone: Reason for referral (narrative)* Diagnostic Procedure Only (Routine) - Authorized Specialty Diagnoses / Procedures Referred By Contac t Referred To Contact XR IMAGING Diagnoses Esophagogastric junction outflow obstruction Procedures XR ESOPHAGRAM RADIOLOGIC EXAM ESOPHAGUS SINGLE CONTRAST STUDY Ita Garcia MD 1 [facility] [place] [address] [place] [address] [place] [id number] Referral ID Status Reason Start Date Expiration Date Visits Requested Visits Authorized [id number] Authorized Auto-Generat ed Referral 09/05/2023 10/04/2024 1 1 [facility]arrative)No reason for referral information availableDickerson [facility] Work Phone: Summary Purpose Family [...] Will No February 10 1:45am Power of College Or University Registrar No February 10, 2021 1:45am Advance Directive Response Recorded Date/ Time Advance Directives No December 12:25pm Living Will No July 15, 2021 1 0:36pm Power of College Or University Registrar No July 15, 2021 10:36pm Advance Directive Response Recorded Date/ Time Advance Directives No December 12:25pm Living Will No October 07 10:00am Power of College Or University Registrar No October 07 10:00am Advance Directive Response Recorded Date/ Time Advance Directives No December 11:25am Living Will No October 07 9:00am Power of College Or University Registrar No October 07 9:00am Advance Directive Response Recorded Date/ Time Advance Directives No December 12:25pm Living Will No June 15, 2022 2:31pm Power of College Or University Registrar No June 15 2:31pm Advance Directive Response Recorded Date/ Time Advance Directives No December 11:25am Living Will No June 15, 2022 1:31pm Power of College Or University Registrar No June 15 1:31pm Advance Directive Response Recorded Date/ Time Advance Directives No December 11:25am Living Will No April 04 6:55pm Power of College Or University Registrar No April 04, 2023 6:55pm Advance Directive Response Recorded Date/ Time Advance Directives No December 12:25pm Living Will No June 05, 2023 1:53pm Power of College Or University Registrar No June 04 1:53pm Advance Directive Response Recorded Date/ Time Advance Directives No December 12:25pm Advance Directive Response Recorded Date/ Time Living Will No June 05, 2023 1:53pm Do you have a Healthcare Power of College Or University Registrar? 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 PELVIC PAIN Reason for Visit Essential (primary) hypertension Persistent atrial fibrillation History of permanent cardiac pacemaker placement Persistent atrial fibrillation Symptomatic bradycardia History of permanent cardiac pacemaker placement Tachy-eric syndrome Pelvic pain Chief Complaint 1M FU 3 mos remote PPM f/u 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 PELVIC PAIN COVID 19 general illness Reason for Visit Essential (primary) hypertension Persistent atrial fibrillation History of permanent cardiac pacemaker placement Persistent atrial fibrillation Symptomatic bradycardia History of permanent cardiac pacemaker placement Tachy-eric syndrome Pelvic pain COVID-19 Chief Complaint 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 PELVIC PAIN COVID 19 general illness [...] RT CYSTO, URETEROSCOPY, LASER, BASKET EXTRAC 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 Reason for Visit History of permanent cardiac pacemaker placement Persistent atrial fibrillation Tachy-eric syndrome Monilial intertrigo Encounter for routine gynecological examination Chief Complaint 3 mos remote PPM f/u CYSTO BILAT URETEROSCOPY RT LASER RT STENT POSS BI RT CYSTO, URETEROSCOPY, LASER, BASKET EXTRAC 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 remote 3mos PPM f/u Reason for Visit History of permanent cardiac pacemaker placement Persistent atrial fibrillation Tachy-eric syndrome Monilial intertrigo Encounter for routine gynecological examination Symptomatic bradycardia History of permanent cardiac pacemaker placement Persistent atrial fibrillation Tachy-eric syndrome Chief Complaint CYSTO BILAT URETEROS COPY RT LASER RT STENT POSS BI RT CYSTO, URETEROSCOPY, LASER, BASKET EXTRAC 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 remote 3mos PPM f/u 1 Y [...] September 17, 2024 9:4 8am ANNUAL IN CLINIC/RECEIVABLE MANAGER @ 10:30 September 9:57am 1 Y FU/GIA [...] September 30, 2024 9: 00am ANNUAL IN CLINIC/RECEIVABLE MANAGER @ 10:September 9:57am 1 Y FU/GIA @ [...] September 30, 2024 9: 00am ANNUAL IN CLINIC/RECEIVABLE MANAGER @ :30 September 9:57am 1 Y FU/GIA [...] September 30, 2024 9: 00am ANNUAL IN CLINIC/RECEIVABLE MANAGER @ 10:30 September 9:57am 1 Y FU/GIA @ September 30, 2024 10 :04am 3 M FU October 23, 2024 7:59am PACER UPDATE W/ Palmap Septem 2024 3:48pm Reason for Visit Admit [...] September 30, 2024 9: 00am ANNUAL IN CLINIC/RECEIVABLE MANAGER @ 10:30 September 9:57am 1 Y FU/GIA @ 10 September 30, 2024 10 :04am 3 M FU October 23, 2024 7:59am PACER UPDATE W/ [employer]map Septem supriya 2024 3:48pm Pacer Check Remote [...] September 30, 2024 9: 00am ANNUAL IN CLINIC/RECEIVABLE MANAGER @ 10:30 September 9:57am 1 Y FU/GIA @ 10 September 30, 2024 10 :04am 3 M FU October 23, 2024 7:59am PACER UPDATE W/ [employer] Septem 2024 3:48pm Pacer Check Remote November 11, 2024 4:21am Pacer Check Remote November 12, 2024 9:00am Pacer Check Remote November 24, 2024 4: 21am Additional Source Comments INFORMATION SOURCE (unrecogn ized section and content) DATE CREATED AUTHOR 03/25/2021 [facility] DATE CREATED AUTHOR AUTHOR'S ORGANIZ ATION 09/07/2023 [facility] DATE CREATED AUTHOR AUTHOR'S ORGANIZ ATION 12/17/2024 [facility] Goals (unrecognized section and content) Goals may [...] Provider, Referring Provider Active Sergio Abebe NP, EMBEDDER-C Attending Provider Active Team Status: Inactive Member [...] Rea MD Referring Provider Active Ellen Wilson EMBEDDER, EMBEDDER-C Attending Provider Active Dr. Bria Spencer MD Primary Care Provider Active Team Status: Inactive Member Role Status Dates Dr. Bria Spencer MD Primary Care Provider Active Ellen Wilson EMBEDDER, EMBEDDER-C Attending Provider, Referring Provider Active Team Status: [...] Status: Active Member Role Status Dates Dr. Brai Spencer MD Primary Care Provider Active Dr. [...] DO Attending Provider, Emergency P rovider Active Mold Yard Worker Relationship Specialty Start Date End Date Rui Rea MD [address] [place] [address] PCP - General Family Medicine 05/29/17 Reynaldo Thapa MD [address] [place], [place] [address] Specialty Aerospace Manager Cardiology 12/21/20 [employer] Worker Relationship Specialty Start Date End Date Rui Rea MD [address] [place] [address] PCP - General Family Medicine 05/29/17 Reynaldo Thapa MD [place] [address] Specialty Aerospace Manager Cardiology 12/21/20 Team Status: Active Member Role Status Dates Dr. Brai Spencer MD Primary Care Provider Active Team [...] 2024 End: July 07, 2024 Clarisse Walden EMBEDDER-C Attending Provider Active Start: July 07, 2024 End: July 07, 2024 Clarisse Walden EMBEDDER-C Referring Provider Active Start: July 07, 2024 End: July 07, 2024 Team Status: Inactive Member Role Status Dates Dr. Bria Spencer MD Primary Care Provider Active Start: July 17, 2024 End: July 17, 2024 Dr. Bria Spencer MD Referring Provider Active Start: July 17, 2024 End: July 17, 2024 Clarisse Walden EMBEDDER-C Attending Provider Active Start: July 17, 2024 End: July 17, 2024 Team Status: Active Member Role Status Dates Dr. Bria Spencer MD Primary Care Provider Active Start: July 17, 2024 Clarisse Walden EMBEDDER-C Attending Provider Active Start: July 17, 2024 Clarisse Walden EMBEDDER-C Referring Provider Active Start: July 17, 2024 Team Status: Inactive Member Role Status Dates Dr. Bria Spencer MD Primary Care Provider Active Start: July 17, 2024 End: July 17, 2024 Clarisse Walden EMBEDDER-C Attending Provider Active Start: July 17, 2024 End: July 17, 2024 Clarisse Walden EMBEDDER-C Referring Provider Active Start: July 17, 2024 [...] 2024 End: July 01, 2024 Clarisse Walden EMBEDDER-C Attending Provider Active Start: July 01, 2024 [...] End: July 17, 2024 Clarisse Win , EMBEDDER-C Attending Provider Active Start: July 17, 2024 [...] or prosecute any alcohol or drug abuse patient.[facility] the event this information is protected by the Federal Confidentiality of Alcohol and Drug Abuse Patient Records regulations: The Federal rules restrict any use of the information to criminally investigate or prosecute any alcohol or drug abuse patient.[facility] Reason for Visit (unrecogniz ed section [...] BE BASED ON THE PRIMARY CLINICAL RECORDS. [facility] [employer] [facility]. provides no warranty or guarantee of the accuracy or completeness of information in this document.
[2025-02-17 06:34] LABS: Hematocrit 39.1 % (37-47); Hemoglobin 12.8 g/dL (12.0-15.0); Mean Corp Hgb Conc 32.7 g/dL (32-36); Mean Corpuscular Volume 91.1 fL (81-99); Mean Platelet Vol. 9.1 fl (6.2-12.0); Platelet Count 281 K/mm3 (150-450); RBC Distribution Width CV 13.7 % (11.6-14.6); RBC Distribution Width SD 45.1 fl (35.1-43.9); Red Blood Count 4.29 M/mm3 (4.2-5.4); White Blood Count 14.2 K/mm3 (4.4-11.0)
[2025-02-17 07:04] LABS: Anion Gap 9 (7-18); BUN 7 mg/dL (4-19); BUN/Creat Ratio 7.9 RATIO (10-20); Calcium,Total 8.7 mg/dL (7.6-11.0); Carbon Dioxide 27.3 mmol/L (20.0-29.0); Chloride 102 mmol/L (96-106); Estimated Creatinine Clearance 53.60 ml/min (50-250); Glucose 133 mg/dL (70-99); Potassium 4.0 mmol/L (3.5-5.1)
[2025-02-17] MEDS: 0.9% Saline Lock 10 ML Syringe IV (10:24)
[2025-02-17] MEDS: Magnesium Chloride 64 MG Delay Rel.Tablet PO (10:27)
[2025-02-17] MEDS: Cholecalciferol (VIT D3) 25 MCG TABLET (1,000 UNITS) PO (10:27)
--- NOTE | 2025-02-17 11:00 | CASEMGMT ---
RN CM Face to Face with patient for initial transition planning/care coordination assessment. RN CM introduced self and role at [facility]. Patient sitting in chair, alert and oriented. Patient willing to participate in assessment and is able to answer all questions appropriately. Care providers, pharmacy, and demographics verified. Strata: 2 PCP: Johanna Specialists: Elier, lactation consultant; FLORIN, ortho; Juliet, cathead worker; Jackie, urologist; Win, GI; Cassius and Dora, surgeon Preferred Pharmacy: [facility] Insurance: [employer] Prescription Benefit: yes Living Will/HPOA: none LNOK: daughter, HASMUKH Living Arrangements: Patient lives with daughter and HASMUKH in a 2 story home with bed and bath on first floor, no steps to enter. Patient states she is independent at home. Transportation: self, daughter, HASMUKH DME/HHC: Patient has cane, walker, wheelchair, pulse ox, and glucometer at home No previous HHC or SNF. Will monitor for home oxygen at discharge, prefers [facility] Patient wishes to discharge home, denies need for home health at this time. Patient states she has no further needs or concerns at this time. CM to follow for discharge planning needs that may arise. Disposition Plan: Patient to discharge home with family support and follow-up plans in place. Will monitor for home oxygen at discharge. Susanna GIRARD, RN, CM
--- NOTE | 2025-02-17 12:40 | CT_ITS ---
PROCEDURE: CHEST WITHOUT CONTRAST 02/17/2025 REASON FOR EXAM: HYPOXIA TECHNIQUE: Chest CT without contrast. Coronal and Sagittal reconstruction series were provided. One or more dose reduction techniques were used (e.g., Automated exposure control, adjustment of the mA and/or kV according to patient size, use of iterative reconstruction technique RADIATION DOSE SUMMARY: CTDlvol: 10.71 mGy DLP: 380.06 mGycm COMPARISON: Chest x-ray 02/16/2025. FINDINGS: Hardware: Monitor electrodes overlie the chest. Lymph nodes: No lymphadenopathy. Heart and Vasculature: No cardiomegaly. Left-sided pacemaker in place. Coronary Artery Calcifications: Present. Lungs and Airways: Clear. Pleura: No pleural effusion or pneumothorax. Upper Abdomen: No acute abdominal abnormalities. Status post cholecystectomy. Bones: No acute bony abnormalities. CT/Chest without Contrast IMPRESSION: Coronary artery calcification (CAC) is is present No acute chest abnormalities. Reading Location: [facility]
--- NOTE | 2025-02-17 19:56 | PCM.HOSP.N ---
Hospitalist Note Patient was seen and examined today, I reviewed her labs and obtained a CT of the chest which was negative for any abnormality. Patient's echocardiogram today showed an ejection fraction of 63%, she has mild pulmonary hypertension. I have elected to take her off Lasix today, at the time of this dictation, she is on room air. When walking today she became dizzy but was able to ambulate. Patient will be reevaluated tomorrow for possible discharge tomorrow.
[2025-02-17] MEDS: MELATONIN 3 MG TABLET PO (20:42)
[2025-02-18] VITALS (7 sets, daily range): BP systolic 108–111; BP diastolic 75–81; PULSE 78–134; RESP 16–18; TEMP 35.9–36.1; O2SAT 92–94
[2025-02-18 06:59] LABS: Hematocrit 39.7 % (37-47); Hemoglobin 13.3 g/dL (12.0-15.0); Immature Granulocytes Count 0.300 X10^3/uL (0.0-0.0); Mean Corp Hgb Conc 33.5 g/dL (32-36); Mean Corpuscular Volume 89.0 fL (81-99); Mean Platelet Vol. 9.3 fl (6.2-12.0); NRBC Flagged by Analyzer 0 % (0-5); Platelet Count 264 K/mm3 (150-450); RBC Distribution Width CV 13.7 % (11.6-14.6); RBC Distribution Width SD 44.6 fl (35.1-43.9); Red Blood Count 4.46 M/mm3 (4.2-5.4); White Blood Count 8.9 K/mm3 (4.4-11.0)
[2025-02-18] MEDS: Magnesium Chloride 64 MG Delay Rel.Tablet PO (09:42)
[2025-02-18] MEDS: Cholecalciferol (VIT D3) 25 MCG TABLET (1,000 UNITS) PO (09:42)
[2025-02-18] MEDS: Glucerna Shake 120 ML LIQUID PO ×2 (09:46→11:41)
--- NOTE | 2025-02-18 14:14 | CASEMGMT ---
RN CM NOTE: Pt does not qualify for home O2. Martinez CISNEROSN RN CM
--- NOTE | 2025-02-18 15:35 | DCINST_ITS ---
Discharge Instructions DC O2, CPAP, BIPAP needs Home O2 Discharge instructions: No Dressing / Incision Discharge Activity: Return to Normal Activity Weight Bearing Status: Full weight bearing Follow Up Care Test Results: Test results from this visit will be discussed in further detail at your follow- up appointment, if applicable. Discharge Plan Admission Admit Date/Time: 02/17/25 00:28 Primary Reason for Your Visit: Dyspnea Attending Provider: Wojciech Castillo Primary Care Provider: Bria Spencer Consulting Providers: Pastor Llamas Discharge Orders/Prescriptions Prescriptions: Continued cholecalciferol (vitamin D3) 25 mcg (1,000 unit) tablet 5,000 unit PO QDAY Januvia 25 mg tablet 25 mg PO DAILY furosemide 40 mg tablet 40 mg PO QDAY psyllium husk [Metamucil] 0.4 gram capsule 0.4 g PO QDAY citalopram 20 mg tablet 20 mg PO DAILY magnesium 200 mg tablet 250 mg PO DAILY Xarelto 20 mg tablet 20 mg PO .COMPLEX Qty: 90 3RF Patient Comments: HOLD 3 DAYS PRE-OP Rx Instructions: 20 mg orally: administer with evening meal. This RX is for Clarification of instructions. Thank you. diltiazem HCl [Cardizem CD] 120 mg capsule,extended release 24hr 120 mg PO QAM Qty: 90 3RF metoprolol tartrate 100 mg tablet 100 mg PO BID Qty: 180 3RF Referrals / Follow Up: Bria Spencer MD [Primary Care Provider, Family Practice] - In 1 Week Disposition Disposition (needs filled in before D/C Order can be placed): Home, Self Care
--- NOTE | 2025-02-18 15:40 | DS.PCM_ITS ---
Providers Date of Admission: 02/17/25 Date of Discharge: 02/18/25 Primary Care Physician: Dr. Bria Spencer MD Reason For Visit: CHF EXACERBATION W/HYPOXIA Diagnosis Discharge Diagnosis (1) CHF exacerbation: Status: Chronic Code(s): I50.9 - Heart failure, unspecified Plan 1. Dyspnea-etiology unclear #2 type 2 diabetes #3 paroxysmal atrial fibrillation #4 chronic depression #5 chronic use of anticoagulant Congestive heart failure was ruled out Medications at Discharge Home Medications sitagliptin phosphate 25 mg tablet (Januvia) 25 mg PO DAILY 02/27/23 rivaroxaban 20 mg tablet (Xarelto) 20 mg PO .COMPLEX #90 tabs 08/13/24 diltiazem HCl 120 mg capsule,extended release 24 hr (Cardizem CD) 120 mg PO QAM #90 caps 09/22/24 cholecalciferol (vitamin D3) 25 mcg (1,000 unit) tablet 5,000 unit PO QDAY supplement 09/30/24 furosemide 40 mg tablet 40 mg PO QDAY 09/30/24 psyllium husk 0.4 gram capsule (Metamucil) 0.4 g PO QDAY 10/23/24 metoprolol tartrate 100 mg tablet 100 mg PO BID #180 TABLETS 12/15/24 citalopram 20 mg tablet 20 mg PO DAILY 02/16/25 magnesium 200 mg tablet 250 mg PO DAILY 02/16/25 Hospital Course Operations None Procedures 2-D Echocardiogram Summary of Care Provided Minutes Spent on Discharge: 30 Hospital Course: This 79-year-old white female was seen in the emergency room at [facility] with chief complaint of shortness of breath. Patient had had influenza earlier in the month and then was diagnosed with COVID-19. That was approximately 3 weeks prior, she continues to have a cough and she felt very short of breath. The emergency room physician dictated the patient had a history of congestive heart failure, in looking through her medical record I could not appreciate any diagnosis of congestive heart failure and that included her cardiology appointments. Workup in the emergency room showed a slightly elevated beta natruretic peptide, chest x-ray showed no evidence of congestive heart failure however. Patient did not require oxygen to maintain her pulse ox above 90%. Patient was admitted to PCU for suspected congestive heart failure, this examiner did not feel that she had congestive heart failure however, her Lasix was stopped and an echocardiogram was obtained which showed a normal ejection fraction. Patient underwent a chest CT which showed no abnormality. The etiology of the patient's dyspnea was unclear. On 02/18/2025, patient was seen and examined: On examination she appeared in good health and spirits, she does not appear to be in any distress. Vital signs as documented. Skin warm and dry and without overt rashes. Neck without JVD, thyroid appears normal, trachea is midline, neck is supple. Lungs clear, normal air movement was noted. Heart exam notable for regular rhythm, normal sounds and absence of murmurs, rubs or gallops. Abdomen unremarkable and without evidence of organomegaly, masses, or abdominal aortic enlargement, bowel sounds are present in all 4 quadrants, no abdominal tenderness was noted. Extremities nonedematous, no cyanosis was noted, no clubbing was noted. Neuro: Cranial nerves II through XII are grossly intact, no focal motor deficits were noted, sensation to light touch and pinprick is intact, motor exam 5/5 throughout. Psych: Patient is alert and oriented x3, she does not appear anxious or depressed, she does not appear agitated. Patient was discharged home in stable condition on 02/18/2025 Weight / BMI Weight Weight: 85.5 kg Body Mass Index (BMI) 32.3 ABG / Lab / Microbiology Data 02/18/25 06:16 02/17/25 06:22 Laboratory: Laboratory Results - last 24 hr 02/17/25 16:03: POC Glucose 120 H 02/17/25 20:36: POC Glucose 131 H 02/18/25 06:16: WBC 8.9, RBC 4.46, Hgb 13.3, Hct 39.7, MCV 89.0, MCH 29.8, MCHC 33.5, RDW Std Deviation 44.6 H, RDW Coeff of Inderjit 13.7, Plt Count 264, MPV 9.3, I mmature Gran % (Auto) 3.400 H, Neut % (Auto) 62.1, Lymph % (Auto) 21.8, Fergus % (Auto) 8.1, Eos % (Auto) 3.9, Baso % (Auto) 0.7, Absolute Neuts (auto) 5.5, Absolute Lymphs (auto) 1.94, Nucleated RBC % 0 02/18/25 06:24: POC Glucose 158 H 02/18/25 11:38: POC Glucose 133 H Microbiology: Microbiology 02/17/25 14:40 Mucosa - Nasopharyngeal Respiratory Panel (PCR) - Final Radiography Diagnostic Testing: Radiology Impression Echocardiogram 02/17/25 00:33 Interpretation Summary Rhythm on examination consistent with atrial fibrillation. Normal left ventricular systolic function, with EF by Copeland's biplane: 63% Diastolic dysfunction grade indeterminate in the setting of arrhythmia Normal right ventricular systolic function Moderate biatrial dilation Mild aortic regurgitation Recommend routine echocardiographic surveillance of aortic regurgitation in 3 years. Ordering Physician: Pastor Llamas Referring Physician: Bria Spencer Performed By: Annie Deng RDCS D/C Instructions Weight Bearing Status: Full weight bearing DC O2, CPAP, BIPAP Needs Home O2 Discharge instructions: No Meaningful Use Info Meaningful Use Meaningful Use Diagnoses (Choose all that apply): None applicable Discharge Plan Admission Admit Date/Time: 02/17/25 00:28 Primary Reason for Your Visit: Dyspnea Attending Provider: Wojciech Castillo Primary Care Provider: Bria Spencer Consulting Providers: Pastor Llamas Discharge Orders/Prescriptions Prescriptions: Continued cholecalciferol (vitamin D3) 25 mcg (1,000 unit) tablet 5,000 unit PO QDAY Januvia 25 mg tablet 25 mg PO DAILY furosemide 40 mg tablet 40 mg PO QDAY psyllium husk [Metamucil] 0.4 gram capsule 0.4 g PO QDAY citalopram 20 mg tablet 20 mg PO DAILY magnesium 200 mg tablet 250 mg PO DAILY Xarelto 20 mg tablet 20 mg PO .COMPLEX Qty: 90 3RF Patient Comments: HOLD 3 DAYS PRE-OP Rx Instructions: 20 mg orally: administer with evening meal. This RX is for Clarification of instructions. Thank you. diltiazem HCl [Cardizem CD] 120 mg capsule,extended release 24hr 120 mg PO QAM Qty: 90 3RF metoprolol tartrate 100 mg tablet 100 mg PO BID Qty: 180 3RF Referrals / Follow Up: Bria Spencer MD [Primary Care Provider, Family Practice] - In 1 Week Disposition Disposition (needs filled in before D/C Order can be placed): Home, Self Care Charges/Coding Visit Charges Inpatient E&M: 27287 Disch Hosp
== END 2025-02-18 17:23 | disposition home or self-care (01) | DRG 204 ==
LOC: ED 02-17 00:21 → PCU 02-17 01:13
PROVIDERS: Admitting Provider Hospitalist; Emergency Provider Emergency Medicine; PCP Family Medicine; Visit Provider Internal Medicine
DX: R06.02 Shortness of breath (principal); I49.5 Sick sinus syndrome; E11.65 Type 2 diabetes mellitus with hyperglycemia; F32.A Depression, unspecified; I10 Essential (primary) hypertension; E66.811 Obesity, class 1; I48.0 Paroxysmal atrial fibrillation; E78.5 Hyperlipidemia, unspecified; F41.9 Anxiety disorder, unspecified; Z68.35 Body mass index [BMI] 35.0-35.9, adult; Z95.0 Presence of cardiac pacemaker; Z79.01 Long term (current) use of anticoagulants; Z79.84 Long term (current) use of oral hypoglycemic drugs; Z79.899 Other long term (current) drug therapy; Z86.16 Personal history of COVID-19
CPT/HCPCS: 36415; 71045; 71250; 80048; 82962; 83036; 83880; 84484; 85025; 85027; 87633; 93005; 93306; 94668; 99285; Q9957; A4216; C8929; J1938; J2405